=== PATIENT | male | born 1950 | race Caucasian/White ===

== ENCOUNTER → 2017-11-05 08:24 | Outpatient (CLI) | payer OTHER, MEDICAID, SELFPAY | LOC: LIFELINE 08:29 → LAB 11-19 09:25 | PROVIDERS: Family Provider Family Medicine; PCP Family Medicine; Visit Provider Family Medicine | DX: Z53.9 Procedure and treatment not carried out, unspecified reason (principal) ==

== ENCOUNTER → 2017-12-20 12:07 | Outpatient (CLI) | payer OTHER, MEDICAID, SELFPAY ==
--- NOTE | 2017-12-20 12:09 | DI.RAD.S_ITS ---
PROCEDURE: XR LUMBAR SPINE 2-3V INDICATIONS: 67-year-old male with low back pain. TECHNIQUE: 3 views of the lumbar spine were acquired. COMPARISON: None. FINDINGS: Bones: 5 [id number] vertebrae are present. There is normal bony alignment. There is multilevel lumbar spine disc degeneration, with L5-S1 disc narrowing. No vertebral body compression fractures. No suspicious bony lesions. Soft tissues: Overlying bowel gas pattern is normal. No suspicious soft tissue calcifications. There is widespread aortoiliac atherosclerosis, without aneurysm. IMPRESSION: Multilevel lumbar spine disc degeneration, with normal overall bony alignment. Dictated by: Quinn Stein M.D. on 12/20/2017 at 13:03 Approved by: Quinn Stein M.D. on 12/20/2017 at 13:05
== END ==
PROVIDERS: Family Provider Family Medicine; PCP Family Medicine; Visit Provider Physician Assistant
DX: M47.816 Spondylosis without myelopathy or radiculopathy, lumbar region (principal); M54.5 Low back pain
CPT/HCPCS: 72100

== ENCOUNTER → 2017-12-24 13:49 | Outpatient (CLI) | payer OTHER, MEDICAID, SELFPAY ==
--- NOTE | 2017-12-24 | DI.ECHO.S_ITS ---
[place] [facility]---------+ [facility] +---------+ : : [address] : [address] : : : : [id number] : : : : Phone: [phone]+ Echocardiogram Report + + :Name: MECCA MOONEY Study Date: 12/24/2017 Height: 71 in : :[facility] Weight: 255 lb: : Gender: Male BSA: 2.3 m2 : :: 1950 Age: 67 yrs BP: 90/52 mmHg: :Reason For Study: Cardiomyopathy : :Ordering Physician: Eleno Hanna : :Ana Performed By: Lory Gutierrez : :Referring: Rebecca Bae : + + Interpretation Summary 1) Mild concentric left ventricular hypertrophy with mildly to moderately reduced systolic function (EF 40-45%). 2) The entire apex, mid to distal septum, and the distal inferior wall are akinetic. 3) Grossly normal right ventricular size and function. 4) No significant valvular abnormalities. 5) Compared to the Echo done 06/29/2017, no significant change. Procedure: A two-dimensional transthoracic echocardiogram with color flow and Doppler was performed. The study quality was technically difficult. Comparison is made with the echocardiogram of 06-29-17. 1.5 ml of Definity contrast was used to improve image quality. The patient was in atrial fibrillation with heart rates between 68-90 bpm during the exam. Left Ventricle: The left ventricle is normal in size. There is mild concentric left ventricular hypertrophy. The ejection fraction is estimated to be 40-45%. Left ventricular systolic function is mild to moderately reduced. The entire apex, mid to distal septum, and the distal inferior wall are akinetic. Diastolic function could not be accurately assessed due to atrial fibrillation. Right Ventricle: The right ventricle grossly appears normal in size with probable normal systolic function. Atria: Borderline left atrial enlargement. Right atrial size is normal. The interatrial septum is intact with no evidence for an atrial septal defect. Mitral Valve: The mitral valve is grossly normal. There is no mitral regurgitation noted. Aortic Valve: The aortic valve opens well. There is no aortic valve stenosis. No aortic regurgitation is present. Tricuspid Valve: The tricuspid valve leaflets are thin and pliable. There is trace tricuspid regurgitation. The right ventricular systolic pressure is estimated at 32 mmHg assuming a right atrial pressure of 3 mm Hg. Pulmonic Valve: The pulmonic valve is not well visualized. Great Vessels: The aortic root is normal size. The ascending aorta is at the upper limits of normal in size. The IVC is of normal diameter and collapses greater than 50% with a sniff. This suggests a low right atrial pressure of 3 mm Hg. Pericardium/ Pleura There is no pericardial effusion. There is no pleural effusion. MMode/2D Measurements & Calculations LVIDd: 4.7 cm Ao root diam: 3.5 cm LVIDs: 3.2 cm Aortic Jxn: 3.4 cm FS: 31.9 % asc Aorta Diam: 3.7 cm IVSd: 1.2 cm Ao Arch Diam (Prox Trans): 3.2 cm LVPWd: 1.1 cm LV bond. diameter/BSA (cm/m^2): 2.0 LV sys. diameter/BSA (cm/m^2): 1.4 LA dimension: 4.9 cm RA long axis: 4.9 cm LA A2 area: 22.9 cm2 RA area: 19.1 cm2 LA A4 area: 20.2 cm2 RA vol: 63.8 ml LA length (vol): 5.5 cm RA : 27.3 ml/m2 LA vol: 70.9 ml IVC diam: 1.3 cm LA vol index: 30.3 ml/m2 RVDd major: 5.4 cm RVD1 (basal): 3.7 cm RVD2 (mid): 2.9 cm Doppler Measurements & Calculations Ao V2 max: 185.8 cm/sec MV E max randy: 72.2 cm/sec Ao V2 mean: 119.0 cm/sec MV A max randy: 67.7 cm/sec Ao max P.8 mmHg MV E/A: 1.1 Ao mean P.7 mmHg MV dec time: 0.28 sec Ao V2 VTI: 39.6 cm MV P1/2t: 82.6 msec TR max randy: 268.2 cm/sec MV P1/2t max randy: 71.7 cm/sec TR max P.8 mmHg MVA(P1/2t): 2.7 cm2 PA V2 max: 104.3 cm/sec PA V2 mean: 61.5 cm/sec PA mean P.0 mmHg PA Accel Time: 0.11 sec Reading Physician:04:20 PM
== END ==
PROVIDERS: Family Provider Family Medicine; PCP Family Medicine; Visit Provider Internal Medicine Cardiovascular Disease
DX: I42.9 Cardiomyopathy, unspecified (principal)
CPT/HCPCS: 93306; Q9957

== ENCOUNTER → 2018-01-20 08:41 | Outpatient (CLI) | payer OTHER, MEDICAID, SELFPAY | PROVIDERS: PCP Family Medicine; Visit Provider Urology | DX: R97.20 Elevated prostate specific antigen [PSA] (principal) | CPT/HCPCS: 36415; 84153 ==

== ENCOUNTER → 2018-02-08 08:08 | Outpatient (CLI) | payer OTHER, MEDICAID, SELFPAY ==
[2018-02-08 08:47] LABS: Add Manual Diff / Slide Review NO; Basophils Percent Auto 0.5 % (0-2); Eosinophils Percent Auto 4.1 % (2-4); Hematocrit 41.3 % (41-53); Lymphocytes Percent Auto 40.2 % (25-40); Mean Corpuscular Hemoglobin 29.1 PG (26-34); Mean Corpuscular Volume 85.5 fL (80-100); Neutrophils Absolute Auto 3900 /uL (3000-5900); Neutrophils Percent Auto 48.2 % (50-75); Platelet Count 204 X10^3/uL (150-400); Red Blood Cell Count 4.83 X10^6/uL (4.5-5.9); Red Cell Distribution Width 14.5 % (11.6-14.8)
[2018-02-08 08:57] LABS: Hemoglobin A1C% w Est Avg Glu 8.5 % (4.0-6.0)
[2018-02-08 09:25] LABS: Alanine Aminotransferase 22 IU/L (21-72); Albumin 4.1 g/dL (3.5-5.0); Albumin Globulin Ratio 1.4 (1.0-2.8); Alkaline Phosphatase 69 U/L (38-126); Aspartate Aminotransferase 20 IU/L (17-59); BUN Creatinine Ratio 21.8 (6-22); Bilirubin Total 0.9 mg/dL (0.2-1.3); Blood Urea Nitrogen 24 mg/dL (9-20); Calcium 9.1 mg/dL (8.4-10.2); Carbon Dioxide 30 mmol/L (22-32); Chloride 101 mmol/L (98-107); Cholesterol 152 mg/dL (140-199); Estimated Glomerular Filt Rate > 60.0 mL/min (>60); Glucose 197 mg/dL (80-110); HDL Cholesterol 41 mg/dL (40-60); HEMOLYSIS < 15 (0-50); LDL Cholesterol Calculated 81 mg/dL (<100); Potassium 4.5 mmol/L (3.4-5.1); Sodium 141 mmol/L (137-145); Total Protein 7.1 g/dL (6.3-8.2); Triglycerides 152 mg/dL (35-150)
[2018-02-08 10:45] LABS: Appearance Urine UA CLEAR; Bilirubin Urine UA NEGATIVE (NEGATIVE); Color Urine UA YELLOW; Glucose Urine UA NEGATIVE (Normal); Ketones Urine UA NEGATIVE (NEGATIVE); Leukocyte Esterase Urine UA NEGATIVE (NEGATIVE); Nitrite Urine UA Negative (Negative); Occult Blood Urine UA TRACE-INTACT (Negative); Protein Urine UA NEGATIVE (Negative); Urobilinogen Urine UA 0.2 E.U./dL (0.2); pH Urine UA 5.5 (4.5-8.0)
[2018-02-08 11:03] LABS: Thyroid Stimulating Hormone 3.54 uIU/mL (0.47-4.68)
== END ==
PROVIDERS: Family Provider Family Medicine; PCP Family Medicine; Visit Provider Family Medicine
DX: E11.9 Type 2 diabetes mellitus without complications (principal); Z51.81 Encounter for therapeutic drug level monitoring
CPT/HCPCS: 36415; 80053; 80061; 81003; 83036; 84443; 85025

== ENCOUNTER 2018-02-11 11:15 | Outpatient (RCR) | payer OTHER, MEDICAID, SELFPAY ==
--- NOTE | 2017-10-27 13:15 | PT.OTN ---
Current Diagnoses Cerebral infarction, unspecified (10/27/17) Physical Therapy Treatment Note PT-OP-A Visit Information Start: 10/27/17 10:17 Freq: Status: Active Protocol: Activity Type Activity Date Activity User E-Sign Co-Sign Detail Recorded Client Recorded Date Recorded By Document 10/27/17 10:25 AMB [email or web address] 10/27/17 10:28 AMB 10/27/17 10:25 Out-Patient Physical Therapy Visit Information [Visit Information] -Visit Note 7 of 15 visits authorized. G codes due visit 53. POC ends 11/02/17. Insurance authorization ends 12/13/17. -Visit Start Time 10:30 -Visit Stop Time 11:15 -Total Visit Minutes 45 -Visit Number 51 [Evaluation Information] -Evaluation Date 02/08/17 PT-OP-C Subjective Start: 10/27/17 10:17 Freq: Status: Active Protocol: Activity Type Activity Date Activity User E-Sign Co-Sign Detail Recorded Client Recorded Date Recorded By Document 10/27/17 13:00 AMB [email or web address] 10/27/17 13:15 AMB 10/27/17 13:00 OP-PT Subjective [Patient Comments] -Patient Comments The patient and his caregiver, Jennifer, attend PT. Pt said ouch 3 times when sitting down in his chair, and eventually pointed to his low back. He also said shit when asked to do more challenging exercises. PT-OP-Q Treatments Start: 10/27/17 10:17 Freq: Status: Active Protocol: Activity Type Activity Date Activity User E-Sign Co-Sign Detail Recorded Client Recorded Date Recorded By Document 10/27/17 13:00 AMB [email or web address] 10/27/17 13:15 AMB 10/27/17 13:00 Gym Equipment [Shuttle Balance] 1 -Details RED WBOS EC, EO HT -Reps/Duration 15 minutes Therapeutic Exercises [Sitting Exercises] 1 -Sitting Exercise Name Barry- flexion and scaption -Side bilateral -Reps/Minutes 5 minutes -Comments explained to Jennifer how to modify for home use [Standing Exercises] 2 -Standing Exercise Name Sidestepping at rail -Resistance yellow theraband -Reps/Minutes 5 minutes 1 -Standing Exercise Name Sit to stand -Reps/Minutes 2x10 Neuro Re-Education Treatment [Balance Activities] 1 -Details Dynamic Standing balance -Reps/Duration 15 minutes -Comments WBOS with shoulder abduction and trunk rotation, then stride stance with alternating shoulder flexion/ extension PT-OP-T Assessment and Plan Start: 10/27/17 10:17 Freq: Status: Active Protocol: Activity Type Activity Date Activity User E-Sign Co-Sign Detail Recorded Client Recorded Date Recorded By Document 10/27/17 13:00 AMB [email or web address] 10/27/17 13:15 AMB 10/27/17 13:00 Physical Therapy Assessment [Assessment Summary] -Assessment Patient was slightly less willing to progress difficulty of exercises at this visit. Physical Therapy Plan [Next Visit Focus/Plan] -Next Visit Plan Progress dynamic balance , dual tasking
--- NOTE | 2017-11-11 07:15 | PT.OTN ---
Current Diagnoses Cerebral infarction, unspecified (10/27/17) Cerebral infarction, unspecified (11/09/17) Physical Therapy Treatment Note PT-OP-A Visit Information Start: 10/27/17 10:17 Freq: Status: Active Protocol: Document 11/09/17 10:30 AMB (Rec: 11/11/17 07:12 AMB [email or web address]) Out-Patient Physical Therapy Visit Information Visit Information Visit Type Progress Note Visit Note 8 of 15 visits authorized. Insurance auth ends 12/13/17. Visit Start Time 10:30 Visit Stop Time 11:10 Total Visit Minutes 40 Visit Number 52 Evaluation Information Evaluation Date 02/08/17 PT-OP-C Subjective Start: 10/27/17 10:17 Freq: Status: Active Protocol: Document 11/09/17 10:30 AMB (Rec: 11/11/17 07:12 AMB [email or web address]) OP-PT Subjective Patient Comments Patient Comments The patient fell gettng out of the bathtub this morning. His son helped him get up. There is bruising on his right scapula, but nowhere else today that I can see. PT-OP-E Functional Tests Start: 11/11/17 06:53 Freq: Status: Active Protocol: Document 11/11/17 06:54 AMB (Rec: 11/11/17 06:54 AMB [email or web address]) Functional Tests Timed Up and Go (TUG) Score 13 Comments without AD or AFO TUG Impairment Rating 20 to <40% Impaired (Score 12- 13) PT-OP-M Strength Start: 11/11/17 06:54 Freq: Status: Active Protocol: Document 11/09/17 10:30 AMB (Rec: 11/11/17 06:58 AMB [email or web address]) Hip Strength Hip Manual Muscle Testing Right Flexion (L2) 3+ Fair+ Abduction 3 Fair Knee Strength Knee Manual Muscle Testing Right Flexion (S2) 4 Good Extension (L3) 4+ Good+ Ankle/Foot Strength Ankle and Foot Manual Muscle Testing Right Dorsiflexion (L4) 3+ Fair+ Plantarflexion (S1) 4- Good- PT-OP-Q Treatments Start: 10/27/17 10:17 Freq: Status: Active Protocol: Document 11/09/17 10:30 AMB (Rec: 11/11/17 07:12 AMB [email or web address]) Therapeutic Exercises Supine Exercises 1 Supine Exercise Name SLR Reps/Minutes 1 x 10 Sidelying Exercises 1 Sidelying Exercise Name hip abduction Side right Reps/Minutes 1 x 10 Standing Exercises 2 Standing Exercise Name Sidestepping at rail Resistance yellow theraband Reps/Minutes 5 minutes 1 Standing Exercise Name Sit to stand Reps/Minutes 2x10 Therapeutic Activity Therapeutic Activity 1 Name Floor transfer training Comments CGA with environmental support Gait Training Gait Activity 1 Description smooth surface Device Used none Level of Assistance intermittent Rafael Distance/Duration 200' Neuro Re-Education Treatment Balance Activities 2 Details static standing balance Comments modified tandem stance EO PT-OP-T Assessment and Plan Start: 10/27/17 10:17 Freq: Status: Active Protocol: Document 11/09/17 10:30 AMB (Rec: 11/11/17 06:53 AMB [email or web address]) Physical Therapy Assessment Rehab Potential Rehabilitation Potential Good Impairments Impairments Balance Functional Activities Gait Posture Sensation Strength Goals 4 Impairment Balance Short Term Goal (STG) The patient will maintain modified tandem stance with eyes open for 1 minute to show improved static balance.--MET 3 Impairment Transfers Short Term Goal (STG) The patient will perform a floor transfer safely with stand by assist. 2 Impairment ROM Short Term Goal (STG) The patient will have ankle dorsiflexion to neutral passivley.--MET STG Duration 4 weeks Chcf Goal (LTG) The patient will be independent with a HEP. LTG Duration 8 weeks 1 Impairment Gait Short Term Goal (STG) The patient will improve his TUG to 15 seconds to show reduced risk of falling--MET STG Duration 4 weeks Shell Trim Tool Setter Goal (LTG) The patient will ambulate 250 without LOB or scuffing his feet. LTG Duration 8 weeks Progress Towards Goals Progress Towards Goals Slow Progress - Other Progress Comments The patient has met 50% of his goals. He is close to meeting the others except for independence with a HEP. He has always been resistant to exercising at home, and while he will go on walks with his caregiver, getting him to perform a specific HEP at home has been difficult. Assessment Summary Assessment While the patient fell while getting out of the bathtub today, he has historically been able to perform a floor transfer with environmental support with contact guard assist. Today he was again able to perform a floor transfer that way. Perhaps he slipped in the tub, but he performs that transfer at home independently every day. There was bruising on the right side of his back, but his range of motion was without significant change. The remainder of PT will work on getting his new caregiver up to speed, and try to get the patient to have some follow through with a home exercise program. Physical Therapy Plan Frequency and Duration Frequency of Treatment 1x/Week Duration of Treatment 6 weeks Plan of Care Start Date 11/09/17 Plan of Care End Date 12/21/17 Therapeutic Interventions Therapeutic Interventions Balance Training Gait Training Home Exercise Program Manual Therapy Neuromuscular Re-education Self-Care/Home Management Therapeutic Activities Therapeutic Exercises
--- NOTE | 2017-11-16 16:12 | PT.OTN ---
Current Diagnoses Cerebral infarction, unspecified (10/27/17) Cerebral infarction, unspecified (11/16/17) Physical Therapy Treatment Note PT-OP-A Visit Information Start: 10/27/17 10:17 Freq: Status: Active Protocol: Document 11/16/17 10:30 AMB (Rec: 11/16/17 16:10 AMB [email or web address]) Out-Patient Physical Therapy Visit Information Visit Information Visit Type Treatment Note Visit Note 9 of 15 authorized, Insurance auth ends 12/13/17 Visit Start Time 10:30 Visit Stop Time 11:10 Total Visit Minutes 40 Visit Number 53 Evaluation Information Evaluation Date 02/08/17 PT-OP-C Subjective Start: 10/27/17 10:17 Freq: Status: Active Protocol: Document 11/16/17 10:30 AMB (Rec: 11/16/17 16:10 AMB [email or web address]) OP-PT Subjective Patient Comments Patient Comments The patient's new caregiver is unsure how much help Jackie was previously needing to get in and out of the bathtub but he was able to do so without help today. PT-OP-E Functional Tests Start: 11/11/17 06:53 Freq: Status: Active Protocol: Document 11/11/17 06:54 AMB (Rec: 11/11/17 06:54 AMB [email or web address]) Functional Tests Timed Up and Go (TUG) Score 13 Comments without AD or AFO TUG Impairment Rating 20 to <40% Impaired (Score 12- 13) PT-OP-M Strength Start: 11/11/17 06:54 Freq: Status: Active Protocol: Document 11/09/17 10:30 AMB (Rec: 11/11/17 06:58 AMB [email or web address]) Hip Strength Hip Manual Muscle Testing Right Flexion (L2) 3+ Fair+ Abduction 3 Fair Knee Strength Knee Manual Muscle Testing Right Flexion (S2) 4 Good Extension (L3) 4+ Good+ Ankle/Foot Strength Ankle and Foot Manual Muscle Testing Right Dorsiflexion (L4) 3+ Fair+ Plantarflexion (S1) 4- Good- PT-OP-Q Treatments Start: 10/27/17 10:17 Freq: Status: Active Protocol: Document 11/16/17 10:30 AMB (Rec: 11/16/17 16:10 AMB [email or web address]) Therapeutic Exercises Standing Exercises 3 Standing Exercise Name standing hip abd Reps/Minutes 2x10 1 Standing Exercise Name Sit to stand Reps/Minutes 1x10 Therapeutic Activity Therapeutic Activity 2 Name car transfer training Comments working to avoid pulling on steering wheel/ pulling on door to pull out of the car. Gait Training Gait Activity 2 Description curb step Comments first 8 step in // bars, then outside to real curb. first CGA with gait belt, then SBA. Neuro Re-Education Treatment Balance Activities 2 Details static standing balance Comments modified tandem stance EO PT-OP-T Assessment and Plan Start: 10/27/17 10:17 Freq: Status: Active Protocol: Document 11/16/17 10:30 AMB (Rec: 11/16/17 16:10 AMB [email or web address]) Physical Therapy Assessment Assessment Summary Assessment pt was able to safely go up and down curb step without UE support. He does want to pull on the car during a car transfer, but was able to perform one without UE support with verbal cues. Physical Therapy Plan Next Visit Focus/Plan Next Visit Plan Progress functional transfers. Please Sign and Return: I have reviewed this Plan of Care and certify that the skilled therapy services above are required to meet the patient???s needs. Physician Signature Date Printed Name and Credentials Clinical Instructor Signature Printed Name and Credentials
--- NOTE | 2017-11-23 16:03 | PT.OTN ---
Current Diagnoses Cerebral infarction, unspecified (10/27/17) Cerebral infarction, unspecified (11/23/17) Physical Therapy Treatment Note PT-OP-A Visit Information Start: 10/27/17 10:17 Freq: Status: Active Protocol: Document 11/23/17 10:30 AMB (Rec: 11/23/17 11:16 AMB [email or web address]) Out-Patient Physical Therapy Visit Information Visit Information Visit Type Treatment Note Visit Note 10 of 15 authorized, Insurance auth ends 12/13/17 Visit Start Time 10:30 Visit Stop Time 11:10 Total Visit Minutes 40 Visit Number 54 Evaluation Information Evaluation Date 02/08/17 PT-OP-C Subjective Start: 10/27/17 10:17 Freq: Status: Active Protocol: Document 11/23/17 10:30 AMB (Rec: 11/23/17 11:16 AMB [email or web address]) OP-PT Subjective Patient Comments Patient Comments Pt has a scrape on his right leg, it is currently bandaged so did not remove dressing. Pt and caregiver unsure of how he got it, but stated to caregiver it appeared about Wednesday night. PT-OP-E Functional Tests Start: 11/11/17 06:53 Freq: Status: Active Protocol: Document 11/11/17 06:54 AMB (Rec: 11/11/17 06:54 AMB [email or web address]) Functional Tests Timed Up and Go (TUG) Score 13 Comments without AD or AFO TUG Impairment Rating 20 to <40% Impaired (Score 12- 13) PT-OP-M Strength Start: 11/11/17 06:54 Freq: Status: Active Protocol: Document 11/09/17 10:30 AMB (Rec: 11/11/17 06:58 AMB [email or web address]) Hip Strength Hip Manual Muscle Testing Right Flexion (L2) 3+ Fair+ Abduction 3 Fair Knee Strength Knee Manual Muscle Testing Right Flexion (S2) 4 Good Extension (L3) 4+ Good+ Ankle/Foot Strength Ankle and Foot Manual Muscle Testing Right Dorsiflexion (L4) 3+ Fair+ Plantarflexion (S1) 4- Good- PT-OP-Q Treatments Start: 10/27/17 10:17 Freq: Status: Active Protocol: Document 11/23/17 10:30 AMB (Rec: 11/23/17 16:02 AMB [email or web address]) Therapeutic Exercises Standing Exercises 4 Standing Exercise Name calf stretch Reps/Minutes 30x4 1 Standing Exercise Name Sit to stand Reps/Minutes 1x10 Gait Training Gait Activity 4 Description 6 stairs Device Used no railing Level of Assistance CGA Comments Pt intermittently reached out to touch railing 3 Description Stairs Device Used 2 railings Level of Assistance CGA Comments Fwd/backward to reproduce idea of going up and down stairs to pool. 1 Description smooth surface Device Used none Distance/Duration 200' Comments pt caught his foot once but stabilized without physical assistance. Neuro Re-Education Treatment Balance Activities 3 Details SLS Comments attempted 1-3 seconds intermittently 2 Details static standing balance Comments modified tandem stance EO PT-OP-T Assessment and Plan Start: 10/27/17 10:17 Freq: Status: Active Protocol: Document 11/23/17 10:30 AMB (Rec: 11/23/17 16:02 AMB [email or web address]) Physical Therapy Assessment Assessment Summary Assessment Pt was able to back down stairs, but would likely have difficulty getting out of the above ground pool onto the stairs safely. Physical Therapy Plan Next Visit Focus/Plan Next Note Type Treatment Note Next Visit Plan Progress stairs Please Sign and Return: I have reviewed this Plan of Care and certify that the skilled therapy services above are required to meet the patient???s needs. Physician Signature Date Printed Name and Credentials Clinical Instructor Signature Printed Name and Credentials
--- NOTE | 2017-11-30 14:45 | PT.OTN ---
Current Diagnoses Cerebral infarction, unspecified (10/27/17) Cerebral infarction, unspecified (11/30/17) Physical Therapy Treatment Note PT-OP-A Visit Information Start: 10/27/17 10:17 Freq: Status: Active Protocol: Document 11/30/17 10:30 AMB (Rec: 11/30/17 14:44 AMB [email or web address]) Out-Patient Physical Therapy Visit Information Visit Information Visit Type Treatment Note Visit Note 11 of 15 authorized, Insurance auth ends 12/13/17 Visit Start Time 10:30 Visit Stop Time 11:10 Total Visit Minutes 40 Visit Number 55 Evaluation Information Evaluation Date 02/08/17 PT-OP-C Subjective Start: 10/27/17 10:17 Freq: Status: Active Protocol: Document 11/30/17 10:30 AMB (Rec: 11/30/17 14:44 AMB [email or web address]) OP-PT Subjective Patient Comments Patient Comments Pt's attends with the patient. She states that the ankle wound is healing. She is able to describe the steps into the pool well. PT-OP-E Functional Tests Start: 11/11/17 06:53 Freq: Status: Active Protocol: Document 11/11/17 06:54 AMB (Rec: 11/11/17 06:54 AMB [email or web address]) Functional Tests Timed Up and Go (TUG) Score 13 Comments without AD or AFO TUG Impairment Rating 20 to <40% Impaired (Score 12- 13) PT-OP-M Strength Start: 11/11/17 06:54 Freq: Status: Active Protocol: Document 11/09/17 10:30 AMB (Rec: 11/11/17 06:58 AMB [email or web address]) Hip Strength Hip Manual Muscle Testing Right Flexion (L2) 3+ Fair+ Abduction 3 Fair Knee Strength Knee Manual Muscle Testing Right Flexion (S2) 4 Good Extension (L3) 4+ Good+ Ankle/Foot Strength Ankle and Foot Manual Muscle Testing Right Dorsiflexion (L4) 3+ Fair+ Plantarflexion (S1) 4- Good- PT-OP-Q Treatments Start: 10/27/17 10:17 Freq: Status: Active Protocol: Document 11/30/17 10:30 AMB (Rec: 11/30/17 14:44 AMB [email or web address]) Gym Equipment Shuttle Balance 1 Details RED WBOS Reps/Duration 15 minutes Comments dynamic balance with balloon batting bilateral arms Therapeutic Exercises Supine Exercises 2 Supine Exercise Name hamstring/ achilles passive stretch Side right Reps/Minutes 30 x2 1 Supine Exercise Name SLR Reps/Minutes 1 x 10 Sidelying Exercises 1 Sidelying Exercise Name hip abduction Side right Reps/Minutes 1 x 10 Standing Exercises 1 Standing Exercise Name Sit to stand Reps/Minutes 1x10 Gait Training Gait Activity 4 Description 6 stairs Device Used no railing Level of Assistance SBA Comments with SPC 3 Description Stairs Device Used 2 railings Level of Assistance CGA Comments FWD then turning around on step as he will need to do to get into the pool. PT-OP-T Assessment and Plan Start: 10/27/17 10:17 Freq: Status: Active Protocol: Document 11/30/17 10:30 AMB (Rec: 11/30/17 14:44 AMB [email or web address]) Physical Therapy Assessment Assessment Summary Assessment Pt much safer with SPC on the stairs, and seemed willing to use it, but we will have to follow up on if he uses it on his backyard stairs that don't have a railing. Physical Therapy Plan Frequency and Duration Frequency of Treatment 1x/Week Duration of Treatment 6 weeks Plan of Care Start Date 11/09/17 Plan of Care End Date 12/21/17 Next Visit Focus/Plan Next Note Type Treatment Note Next Visit Plan Follow up on SPC usage with stairs. Please Sign and Return: I have reviewed this Plan of Care and certify that the skilled therapy services above are required to meet the patient?s needs. Physician Signature Date Printed Name and Credentials Clinical Instructor Signature Printed Name and Credentials
--- NOTE | 2018-01-07 09:45 | PT.OTN ---
Current Diagnoses Cerebral infarction, unspecified (10/27/17) Cerebral infarction, unspecified (01/07/18) Physical Therapy Treatment Note PT-OP-A Visit Information Start: 10/27/17 10:17 Freq: Status: Active Protocol: Document 01/07/18 09:45 AMB (Rec: 01/10/18 07:24 AMB [id number]) Out-Patient Physical Therapy Visit Information Visit Information Visit Type Treatment Note Visit Note New insurance auth Visit Start Time 09:45 Visit Stop Time 10:30 Total Visit Minutes 45 Visit Number 56 Evaluation Information Evaluation Date 02/08/17 PT-OP-C Subjective Start: 10/27/17 10:17 Freq: Status: Active Protocol: Document 01/07/18 09:45 AMB (Rec: 01/10/18 07:24 AMB [id number]) OP-PT Subjective Patient Comments Patient Comments Pt and his caregiver attend PT after low back pain exacerbation. When asked if his back is still hurting pt states I don't know PT-OP-E Functional Tests Start: 11/11/17 06:53 Freq: Status: Active Protocol: Document 11/11/17 06:54 AMB (Rec: 11/11/17 06:54 AMB [email or web address]) Functional Tests Timed Up and Go (TUG) Score 13 Comments without AD or AFO TUG Impairment Rating 20 to <40% Impaired (Score 12- 13) PT-OP-M Strength Start: 11/11/17 06:54 Freq: Status: Active Protocol: Document 11/09/17 10:30 AMB (Rec: 11/11/17 06:58 AMB [email or web address]) Hip Strength Hip Manual Muscle Testing Right Flexion (L2) 3+ Fair+ Abduction 3 Fair Knee Strength Knee Manual Muscle Testing Right Flexion (S2) 4 Good Extension (L3) 4+ Good+ Ankle/Foot Strength Ankle and Foot Manual Muscle Testing Right Dorsiflexion (L4) 3+ Fair+ Plantarflexion (S1) 4- Good- PT-OP-Q Treatments Start: 10/27/17 10:17 Freq: Status: Active Protocol: Document 01/07/18 09:45 AMB (Rec: 01/10/18 07:30 AMB [id number]) Therapeutic Exercises Supine Exercises 5 Supine Exercise Name bridges 4 Supine Exercise Name lower trunk rotation Reps/Minutes 30x4 3 Supine Exercise Name piriformis stretch Reps/Minutes 30x2 2 Supine Exercise Name hamstring/ achilles passive stretch Side right Reps/Minutes 30 x2 Prone Exercises 1 Prone Exercise Name jeremiah pose Reps/Minutes 30x2 Therapeutic Activity Therapeutic Activity 1 Name Floor transfer training Reps/Minutes 10 min Comments CGA with environmental support - from supine PT-OP-T Assessment and Plan Start: 10/27/17 10:17 Freq: Status: Active Protocol: Document 01/07/18 09:45 AMB (Rec: 01/11/18 09:43 AMB [email or web address]) Physical Therapy Assessment Goals 4 Impairment Balance Short Term Goal (STG) The patient will maintain modified tandem stance with eyes open for 1 minute to show improved static balance.--MET 3 Impairment Transfers Short Term Goal (STG) The patient will perform a floor transfer safely with stand by assist.- MET 2 Impairment ROM Short Term Goal (STG) The patient will have ankle dorsiflexion to neutral passivley.--MET STG Duration 4 weeks Sawdust Drier Goal (LTG) The patient will be independent with a HEP. LTG Duration 8 weeks 1 Impairment Gait Short Term Goal (STG) The patient will improve his TUG to 15 seconds to show reduced risk of falling--MET STG Duration 4 weeks Sawdust Drier Goal (LTG) The patient will ambulate 250 without LOB or scuffing his feet. LTG Duration 8 weeks Assessment Summary Assessment The patient has met his goals, except for his home exercise program and gait goals. He continues to be resistant to exercising at home, especially with the change in caregivers. He is willing to work in PT. He has not been seen in the last month due to back pain. It was difficult to assess his back pain today because when asked if his back hurts he states I don't know . He is seeing his PCP regarding his back pain soon. If he wants to work on his back pain, we could work on that with a new prescription, but considering his previous difficulty with a home exercise program, it may be difficult to make gains. Physical Therapy Plan Frequency and Duration Frequency of Treatment 1x/Week Duration of Treatment 3 weeks Plan of Care Start Date 01/07/18 Plan of Care End Date 01/28/18 Therapeutic Interventions Therapeutic Interventions Balance Training Gait Training Home Exercise Program Manual Therapy Neuromuscular Re-education Self-Care/Home Management Therapeutic Activities Therapeutic Exercises Next Visit Focus/Plan Next Visit Plan Possible d/c in near future
--- NOTE | 2018-01-11 09:46 | PT.OPPN ---
Current Diagnoses Cerebral infarction, unspecified (10/27/17) Cerebral infarction, unspecified (01/07/18) Physical Therapy Progress Note PT-OP-A Visit Information Start: 10/27/17 10:17 Freq: Status: Active Protocol: Document 01/07/18 09:45 AMB (Rec: 01/10/18 07:24 AMB [id number]) Out-Patient Physical Therapy Visit Information Visit Information Visit Type Treatment Note Visit Note New insurance auth Visit Start Time 09:45 Visit Stop Time 10:30 Total Visit Minutes 45 Visit Number 56 Evaluation Information Evaluation Date 02/08/17 PT-OP-C Subjective Start: 10/27/17 10:17 Freq: Status: Active Protocol: Document 01/07/18 09:45 AMB (Rec: 01/10/18 07:24 AMB [id number]) OP-PT Subjective Patient Comments Patient Comments Pt and his caregiver attend PT after low back pain exacerbation. When asked if his back is still hurting pt states I don't know PT-OP-E Functional Tests Start: 11/11/17 06:53 Freq: Status: Active Protocol: Document 11/11/17 06:54 AMB (Rec: 11/11/17 06:54 AMB [email or web address]) Functional Tests Timed Up and Go (TUG) Score 13 Comments without AD or AFO TUG Impairment Rating 20 to <40% Impaired (Score 12- 13) PT-OP-M Strength Start: 11/11/17 06:54 Freq: Status: Active Protocol: Document 11/09/17 10:30 AMB (Rec: 11/11/17 06:58 AMB [email or web address]) Hip Strength Hip Manual Muscle Testing Right Flexion (L2) 3+ Fair+ Abduction 3 Fair Knee Strength Knee Manual Muscle Testing Right Flexion (S2) 4 Good Extension (L3) 4+ Good+ Ankle/Foot Strength Ankle and Foot Manual Muscle Testing Right Dorsiflexion (L4) 3+ Fair+ Plantarflexion (S1) 4- Good- PT-OP-T Assessment and Plan Start: 10/27/17 10:17 Freq: Status: Active Protocol: Document 01/07/18 09:45 AMB (Rec: 01/11/18 09:43 AMB [email or web address]) Physical Therapy Assessment Goals 4 Impairment Balance Short Term Goal (STG) The patient will maintain modified tandem stance with eyes open for 1 minute to show improved static balance.--MET 3 Impairment Transfers Short Term Goal (STG) The patient will perform a floor transfer safely with stand by assist.- MET 2 Impairment ROM Short Term Goal (STG) The patient will have ankle dorsiflexion to neutral passivley.--MET STG Duration 4 weeks Brake Press Operator Goal (LTG) The patient will be independent with a HEP. LTG Duration 8 weeks 1 Impairment Gait Short Term Goal (STG) The patient will improve his TUG to 15 seconds to show reduced risk of falling--MET STG Duration 4 weeks Shelter Goal (LTG) The patient will ambulate 250 without LOB or scuffing his feet. LTG Duration 8 weeks Assessment Summary Assessment The patient has met his goals, except for his home exercise program and gait goals. He continues to be resistant to exercising at home, esepecially with the change in caregivers. He is willing to work in PT. He has not been seen in the last month due to back pain. It was difficult to assess his back pain today because when asked if his back hurts he states I don't know . He is seeing his PCP regarding his back pain soon. If he wants to work on his back pain, we could work on that with a new prescription, but considering his previous difficulty with a home exercise program, it may be difficult to make gains. Physical Therapy Plan Frequency and Duration Frequency of Treatment 1x/Week Duration of Treatment 3 weeks Plan of Care Start Date 01/07/18 Plan of Care End Date 01/28/18 Therapeutic Interventions Therapeutic Interventions Balance Training Gait Training Home Exercise Program Manual Therapy Neuromuscular Re-education Self-Care/Home Management Therapeutic Activities Therapeutic Exercises Next Visit Focus/Plan Next Visit Plan Possible d/c in near future
--- NOTE | 2018-01-11 10:37 | PT.OTN ---
Current Diagnoses Cerebral infarction, unspecified (10/27/17) Cerebral infarction, unspecified (01/07/18) Physical Therapy Treatment Note PT-OP-A Visit Information Start: 10/27/17 10:17 Freq: Status: Active Protocol: Document 01/07/18 09:45 AMB (Rec: 01/10/18 07:24 AMB [id number]) Out-Patient Physical Therapy Visit Information Visit Information Visit Type Treatment Note Visit Note New insurance auth Visit Start Time 09:45 Visit Stop Time 10:30 Total Visit Minutes 45 Visit Number 56 Evaluation Information Evaluation Date 02/08/17 PT-OP-C Subjective Start: 10/27/17 10:17 Freq: Status: Active Protocol: Document 01/07/18 09:45 AMB (Rec: 01/10/18 07:24 AMB [id number]) OP-PT Subjective Patient Comments Patient Comments Pt and his caregiver attend PT after low back pain exacerbation. When asked if his back is still hurting pt states I don't know PT-OP-E Functional Tests Start: 11/11/17 06:53 Freq: Status: Active Protocol: Document 11/11/17 06:54 AMB (Rec: 11/11/17 06:54 AMB [email or web address]) Functional Tests Timed Up and Go (TUG) Score 13 Comments without AD or AFO TUG Impairment Rating 20 to <40% Impaired (Score 12- 13) PT-OP-M Strength Start: 11/11/17 06:54 Freq: Status: Active Protocol: Document 11/09/17 10:30 AMB (Rec: 11/11/17 06:58 AMB [email or web address]) Hip Strength Hip Manual Muscle Testing Right Flexion (L2) 3+ Fair+ Abduction 3 Fair Knee Strength Knee Manual Muscle Testing Right Flexion (S2) 4 Good Extension (L3) 4+ Good+ Ankle/Foot Strength Ankle and Foot Manual Muscle Testing Right Dorsiflexion (L4) 3+ Fair+ Plantarflexion (S1) 4- Good- PT-OP-Q Treatments Start: 10/27/17 10:17 Freq: Status: Active Protocol: Document 01/07/18 09:45 AMB (Rec: 01/10/18 07:30 AMB [id number]) Therapeutic Exercises Supine Exercises 5 Supine Exercise Name bridges 4 Supine Exercise Name lower trunk rotation Reps/Minutes 30x4 3 Supine Exercise Name piriformis stretch Reps/Minutes 30x2 2 Supine Exercise Name hamstring/ achilles passive stretch Side right Reps/Minutes 30 x2 Prone Exercises 1 Prone Exercise Name jeremiah pose Reps/Minutes 30x2 Therapeutic Activity Therapeutic Activity 1 Name Floor transfer training Reps/Minutes 10 min Comments CGA with environmental support - from supine PT-OP-T Assessment and Plan Start: 10/27/17 10:17 Freq: Status: Active Protocol: Document 01/07/18 09:45 AMB (Rec: 01/11/18 09:43 AMB [email or web address]) Physical Therapy Assessment Goals 4 Impairment Balance Short Term Goal (STG) The patient will maintain modified tandem stance with eyes open for 1 minute to show improved static balance.--MET 3 Impairment Transfers Short Term Goal (STG) The patient will perform a floor transfer safely with stand by assist.- MET 2 Impairment ROM Short Term Goal (STG) The patient will have ankle dorsiflexion to neutral passivley.--MET STG Duration 4 weeks Mixer Operator Helper Hot Metal Goal (LTG) The patient will be independent with a HEP. LTG Duration 8 weeks 1 Impairment Gait Short Term Goal (STG) The patient will improve his TUG to 15 seconds to show reduced risk of falling--MET STG Duration 4 weeks Mixer Operator Helper Hot Metal Goal (LTG) The patient will ambulate 250 without LOB or scuffing his feet. LTG Duration 8 weeks Assessment Summary Assessment The patient has met his goals, except for his home exercise program and gait goals. He continues to be resistant to exercising at home, esepecially with the change in caregivers. He is willing to work in PT. He has not been seen in the last month due to back pain. It was difficult to assess his back pain today because when asked if his back hurts he states I don't know . He is seeing his PCP regarding his back pain soon. If he wants to work on his back pain, we could work on that with a new prescription, but considering his previous difficulty with a home exercise program, it may be difficult to make gains. Physical Therapy Plan Frequency and Duration Frequency of Treatment 1x/Week Duration of Treatment 3 weeks Plan of Care Start Date 01/07/18 Plan of Care End Date 01/28/18 Therapeutic Interventions Therapeutic Interventions Balance Training Gait Training Home Exercise Program Manual Therapy Neuromuscular Re-education Self-Care/Home Management Therapeutic Activities Therapeutic Exercises Next Visit Focus/Plan Next Visit Plan Possible d/c in near future
--- NOTE | 2018-01-18 11:25 | PT.OTN ---
Current Diagnoses Cerebral infarction, unspecified (10/27/17) Cerebral infarction, unspecified (01/18/18) Physical Therapy Treatment Note PT-OP-A Visit Information Start: 10/27/17 10:17 Freq: Status: Active Protocol: Document 01/18/18 10:30 AMB (Rec: 01/18/18 11:14 AMB [id number]) Out-Patient Physical Therapy Visit Information Visit Information Visit Type Treatment Note Visit Start Time 10:30 Visit Stop Time 11:15 Total Visit Minutes 45 Visit Number 57 Evaluation Information Evaluation Date 02/08/17 PT-OP-C Subjective Start: 10/27/17 10:17 Freq: Status: Active Protocol: Document 01/18/18 10:30 AMB (Rec: 01/18/18 11:14 AMB [id number]) OP-PT Subjective Patient Comments Patient Comments Pt attens with caregiver, they were able to do HEP one time in the last 2 weeks. PT-OP-E Functional Tests Start: 11/11/17 06:53 Freq: Status: Active Protocol: Document 11/11/17 06:54 AMB (Rec: 11/11/17 06:54 AMB [email or web address]) Functional Tests Timed Up and Go (TUG) Score 13 Comments without AD or AFO TUG Impairment Rating 20 to <40% Impaired (Score 12- 13) PT-OP-M Strength Start: 11/11/17 06:54 Freq: Status: Active Protocol: Document 11/09/17 10:30 AMB (Rec: 11/11/17 06:58 AMB [email or web address]) Hip Strength Hip Manual Muscle Testing Right Flexion (L2) 3+ Fair+ Abduction 3 Fair Knee Strength Knee Manual Muscle Testing Right Flexion (S2) 4 Good Extension (L3) 4+ Good+ Ankle/Foot Strength Ankle and Foot Manual Muscle Testing Right Dorsiflexion (L4) 3+ Fair+ Plantarflexion (S1) 4- Good- PT-OP-Q Treatments Start: 10/27/17 10:17 Freq: Status: Active Protocol: Document 01/18/18 10:30 AMB (Rec: 01/18/18 11:22 AMB [id number]) Therapeutic Exercises Supine Exercises 5 Supine Exercise Name bridges 4 Supine Exercise Name lower trunk rotation Reps/Minutes 30x4 3 Supine Exercise Name piriformis stretch Reps/Minutes 30x2 2 Supine Exercise Name hamstring/ achilles passive stretch Side right Reps/Minutes 30 x2 Gait Training Gait Activity 4 Description 6 stairs Device Used no railing Level of Assistance SBA Comments with SPC PT-OP-T Assessment and Plan Start: 10/27/17 10:17 Freq: Status: Active Protocol: Document 01/18/18 10:30 AMB (Rec: 01/18/18 11:17 AMB [id number]) Physical Therapy Assessment Assessment Summary Assessment Pt appears to be more like his normal self. Less complaint of back pain. Physical Therapy Plan Next Visit Focus/Plan Next Note Type Treatment Note Next Visit Plan One more visit needed to finalize HEP with new caregiver.
--- NOTE | 2018-02-11 12:00 | PT.OTN ---
Current Diagnoses Cerebral infarction, unspecified (10/27/17) Cerebral infarction, unspecified (02/11/18) Physical Therapy Treatment Note PT-OP-A Visit Information Start: 10/27/17 10:17 Freq: Status: Active Protocol: Document 02/11/18 11:15 AMB (Rec: 02/16/18 08:02 AMB [email or web address]) Out-Patient Physical Therapy Visit Information Visit Information Visit Type Discharge Summary Visit Start Time 11:15 Visit Stop Time 12:00 Total Visit Minutes 45 Visit Number 58 Evaluation Information Evaluation Date 02/08/17 PT-OP-C Subjective Start: 10/27/17 10:17 Freq: Status: Active Protocol: Document 02/11/18 11:15 AMB (Rec: 02/16/18 08:02 AMB [email or web address]) OP-PT Subjective Patient Comments Patient Comments Pt attends with his . She reports he [facility] and fell when tripping over a log. His caregiver has not yet followed through with taking him walking at [employer] or the [facility]. She has not been able to get him to do his supine exercises again. His is concerned that 1-2x he has exited the car without looking for traffic and cars had to stop for him. PT-OP-E Functional Tests Start: 11/11/17 06:53 Freq: Status: Active Protocol: Document 11/11/17 06:54 AMB (Rec: 11/11/17 06:54 AMB [email or web address]) Functional Tests Timed Up and Go (TUG) Score 13 Comments without AD or AFO TUG Impairment Rating 20 to <40% Impaired (Score 12- 13) PT-OP-M Strength Start: 11/11/17 06:54 Freq: Status: Active Protocol: Document 11/09/17 10:30 AMB (Rec: 11/11/17 06:58 AMB [email or web address]) Hip Strength Hip Manual Muscle Testing Right Flexion (L2) 3+ Fair+ Abduction 3 Fair Knee Strength Knee Manual Muscle Testing Right Flexion (S2) 4 Good Extension (L3) 4+ Good+ Ankle/Foot Strength Ankle and Foot Manual Muscle Testing Right Dorsiflexion (L4) 3+ Fair+ Plantarflexion (S1) 4- Good- PT-OP-Q Treatments Start: 10/27/17 10:17 Freq: Status: Active Protocol: Document 02/11/18 11:15 AMB (Rec: 02/16/18 08:02 AMB [email or web address]) Gait Training Gait Activity 3 Description Stairs Device Used 1 railing Level of Assistance SBA Comments 2 flights of stairs. 1 Description smooth surface Device Used none Distance/Duration 1000' Comments Walking in parking lot, attending to traffic, cars, crosswalk Lymphedema Treatment Patient Education Other Discussed ongoing exercise program with patient and his . Safety concerns with community ambulation. PT-OP-T Assessment and Plan Start: 10/27/17 10:17 Freq: Status: Active Protocol: Document 02/11/18 11:15 AMB (Rec: 02/11/18 11:15 AMB [email or web address]) Physical Therapy Assessment Goals 4 Impairment Balance Short Term Goal (STG) The patient will maintain modified tandem stance with eyes open for 1 minute to show improved static balance.--MET STG Duration MET 3 Impairment Transfers Short Term Goal (STG) The patient will perform a floor transfer safely with stand by assist.- MET STG Duration MET 2 Impairment ROM Short Term Goal (STG) The patient will have ankle dorsiflexion to neutral passivley.--MET STG Duration MET [employer] Goal (LTG) The patient will be independent with a HEP.-- NOT MET LTG Duration 8 weeks 1 Impairment Gait Short Term Goal (STG) The patient will improve his TUG to 15 seconds to show reduced risk of falling--MET STG Duration MET Fdc Goal (LTG) The patient will ambulate 250 without LOB or scuffing his feet.- MET LTG Duration 8 weeks Assessment Summary Assessment Overall in the past year, Jackie has improved with the safety and consistency of his mobility (stairs, gait, floor transfers). He has had medical setbacks (UTI, sepsis, cellulitis) that have set him back with his PT, but overall he has showed improvement in his balance and community level gait. However, his insight into his condition and willingness to participate with his caregiver may limit his future progress. His was encouraged that if he has a change in function in the future, he would be welcome to return to PT with a new MD prescription. Physical Therapy Plan Discharge Physical Therapy Discharge Reasons Goals Met Discharge Comments The patient has met hte majority of his goals. His relationship with his and his caregiver make it difficult for them to encourage him in his HEP, so his carryover of his home exercise program will likely be difficult.
--- NOTE | 2018-02-16 09:00 | PT.OPDS ---
Current Diagnoses Cerebral infarction, unspecified (10/27/17) Cerebral infarction, unspecified (02/11/18) Provider Visit Care Team Role Provider Type Rebecca Bae DO Attending Provider Physician Family Provider Primary Care Provider Specialty: Family Practice Address: [address] [place] [address], [phone] Email: [email or web address] Visit Number Visit Number 58 Discharge Summary PT-OP-C Subjective Start: 10/27/17 10:17 Freq: Status: Active Protocol: Document 02/11/18 11:15 AMB (Rec: 02/16/18 08:02 AMB [email or web address]) OP-PT Subjective Patient Comments Patient Comments Pt attends with his . She reports he was walking with his caregiver at [employer] and fell when tripping over a log. His caregiver has not yet followed through with taking him walking at [employer] or the [facility]. She has not been able to get him to do his supine exercises again. His is concerned that 1-2x he has exited the car without looking for traffic and cars had to stop for him. PT-OP-E Functional Tests Start: 11/11/17 06:53 Freq: Status: Active Protocol: Document 11/11/17 06:54 AMB (Rec: 11/11/17 06:54 AMB [email or web address]) Functional Tests Timed Up and Go (TUG) Score 13 Comments without AD or AFO TUG Impairment Rating 20 to <40% Impaired (Score 12- 13) PT-OP-M Strength Start: 11/11/17 06:54 Freq: Status: Active Protocol: Document 11/09/17 10:30 AMB (Rec: 11/11/17 06:58 AMB [email or web address]) Hip Strength Hip Manual Muscle Testing Right Flexion (L2) 3+ Fair+ Abduction 3 Fair Knee Strength Knee Manual Muscle Testing Right Flexion (S2) 4 Good Extension (L3) 4+ Good+ Ankle/Foot Strength Ankle and Foot Manual Muscle Testing Right Dorsiflexion (L4) 3+ Fair+ Plantarflexion (S1) 4- Good- PT-OP-T Assessment and Plan Start: 10/27/17 10:17 Freq: Status: Active Protocol: Document 02/11/18 11:15 AMB (Rec: 02/11/18 11:15 AMB [email or web address]) Physical Therapy Assessment Goals 4 Impairment Balance Short Term Goal (STG) The patient will maintain modified tandem stance with eyes open for 1 minute to show improved static balance.--MET STG Duration MET 3 Impairment Transfers Short Term Goal (STG) The patient will perform a floor transfer safely with stand by assist.- MET STG Duration MET 2 Impairment ROM Short Term Goal (STG) The patient will have ankle dorsiflexion to neutral passivley.--MET STG Duration MET Custodial Goal (LTG) The patient will be independent with a HEP.-- NOT MET LTG Duration 8 weeks 1 Impairment Gait Short Term Goal (STG) The patient will improve his TUG to 15 seconds to show reduced risk of falling--MET STG Duration MET Upholstery Handler Goal (LTG) The patient will ambulate 250 without LOB or scuffing his feet.- MET LTG Duration 8 weeks Assessment Summary Assessment Overall in the past year, Jackie has improved with the safety and consistency of his mobility (stairs, gait, floor transfers). He has had medical setbacks (UTI, sepsis, cellulitis) that have set him back with his PT, but overall he has showed improvement in his balance and community level gait. However, his insight into his condition and willingness to participate with his caregiver may limit his future progress. His was encouraged that if he has a change in function in the future, he would be welcome to return to PT with a new MD prescription. Physical Therapy Plan Discharge Physical Therapy Discharge Reasons Goals Met Discharge Comments The patient has met the majority of his goals. His relationship with his and his caregiver make it difficult for them to encourage him in his HEP, so his carryover of his home exercise program will likely be difficult.
== END 2018-11-04 10:29 ==
LOC: PHYS 11:15
PROVIDERS: Family Provider Family Medicine; PCP Family Medicine; Visit Provider Family Medicine
DX: I63.9 Cerebral infarction, unspecified (principal)
CPT/HCPCS: 97110; 97112; 97116; 97530

== ENCOUNTER 2018-04-21 10:30 | Outpatient (RCR) | payer OTHER, MEDICAID, SELFPAY ==
--- NOTE | 2017-10-28 08:51 | OT.OPPN ---
On October 26, 2017 our therapy services consisting of Speech, Occupational, and Physical therapy transitioned from [employer] electronic documentation system to a new [employer] electronic system. All documentation prior to October 26 can be found under [employer] saved data. From October 26 forward, all medical record documentation will be in [employer] 6.1.
[2017-11-05 10:33] LABS: Hemoglobin A1C% w Est Avg Glu 8.6 % (4.0-6.0)
[2017-11-05 10:52] LABS: Alanine Aminotransferase 24 IU/L (21-72); Albumin 4.1 g/dL (3.5-5.0); Albumin Globulin Ratio 1.3 (1.0-2.8); Alkaline Phosphatase 82 U/L (38-126); Aspartate Aminotransferase 18 IU/L (17-59); Bilirubin Total 0.8 mg/dL (0.2-1.3); Cholesterol 143 mg/dL (140-199); Estimated Glomerular Filt Rate > 60.0 mL/min (>60); Globulin 3.1 g/dL (1.7-4.1); Glucose 208 mg/dL (80-110); HDL Cholesterol 44 mg/dL (40-60); HEMOLYSIS < 15 (0-50); LDL Cholesterol Calculated 81 mg/dL (<100); Potassium 4.3 mmol/L (3.4-5.1); Sodium 140 mmol/L (137-145); Total Protein 7.2 g/dL (6.3-8.2); Triglycerides 88 mg/dL (35-150)
--- NOTE | 2017-11-11 11:35 | OT.OP.TRT ---
Visit Care Team Role Provider Type Rebecca Bae DO Attending Provider Physician Family Provider Primary Care Provider Specialty: Family Practice Address: [address] [place] [address], [phone] Email: [email or web address] Occupational Therapy Treatment Note OT Outpatient Treatment Note - Adult Start: 10/28/17 09:40 Freq: Status: Active Protocol: Document 11/11/17 10:29 AMS (Rec: 11/11/17 10:33 AMS [email or web address]) OT Outpatient Adult Treatment Note Session Time Visit Start Time 09:32 Visit Stop Time 10:17 Total Visit Minutes 45 Visit Information Visit Number 12/05 Plan of Care Dates 10/14/17-01/05/18 Insurance Information 02/13/18=15 visits auth per paper chart; Medicare (combo) Setting Treatment Setting Outpatient Care Visit Type Note Type Treatment Note General Information General Information Pt is a 66 year-old male referred to outpatient OT 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 Precautions: Fall risk; Right Visual Field Cut - Subjective Identification Type Name Identification Reconciled With Medical Record Others Present Director Medical Writing Observations He fell on Wednesday onto his right side when he was getting out of the bathtub. He mowed the lawn yesterday all by myself. I was there the whole time. He was able to start it all by himself. He took about 5-6 breaks. I mowed a small portion for him per lay out former . Chief Complaint(s) Loss of Motion/Stiffness Restricts Patient Expectation/Goals Improve functional abilities of the right upper extremity Patient/Caregiver Compliance with Home Fair Exercise Program Comments needs caregiver support - Objective Objective Measurements Pt was accompanied by caregiver. Increasing complaints of pain/discomfort in right shoulder and elbow. Short Term Goals 1. Pt will be able to place B hands on back of head x 10 reps in sitting, with min trunk ext, without c/o pain/ discomfort, requiring max v.c. from therapist. 11/11/17 = 25% of goal met. 2. Pt will be able to shuffle standard size deck of cards x 2 reps with mod I. 10/26/17 = 25 % of goal met. 3. Pt will be able to complete 24-large piece puzzle x1 trial w/ mod verbal/visual cues from therpist. 10/26/17 = min phys A; max verbal/visual cues. Assisted Goals 1. Based on pt/caregiver verbal report, pt will be able to watch preferred television show with B hands on back of head x 2 minutes, as observed on 2 separate dates, per prior level of function. 11/11/17 = 25% of goal met. 2. Based on pt/caregiver verbal report, pt will be ble to safely complete gardening tasks x 10 minutes, utilizing appropriate pruning/trimming tools, as observed on 2 separate dates, requiring supervision. 11/11/17 = 50% of goal met x1 3. Pt will mod I w/ HEP w/ caregiver support. - Treatment 2 Descriptor Functional activities Dishes - plates/bowls Cleaning Mop Cups Visual Cues Max Cues Verbal Cues Max Cues 1 Descriptor Therapeutic Activities Eye-hand Coordination Bimanual Coordination Tolerance Fair Complexity No Change Exercises 3 Descriptor Cane Exercises Body Position Seated Verbal Cues Max Cues Tolerance Fair Modifications Required Yes Complexity No Change 2 Descriptor Home exercise program Functional activity focus/ Awareness Side Right Visual Cues Max Cues Verbal Cues Max Cues Modifications Required Yes 1 Descriptor Therapeutic Exercises AROM Body Position Standing/Sitting Physical Assistance Stand By Assistance Visual Cues None Verbal Cues None Tolerance Fair Modifications Required Yes Complexity No Change - Assessment Patient Response to Treatment Good Rehab Potential Good Impairments Identified ADLs Attention Balance Cognition Coordination/Dexterity Functional Activities Memory Motor Function Pain Weakness Posture Range of Motion Recreational Activities Meaningful Activities Spasticity Stiffness Safety Insight Visual Perception Motor Planning Eye-Hand Coordination Assessment of Improvement Modification of treatment session w/ focus on functional activities w/ use of right hand/reliance on R hand. Will determine if increased attention and carry-over occurs w/ this treatment approach. Able to manage ' cleaning mop' w/ R hand involved; able to manage stacking and unstacking of bowls and plates w/ right hand only multiple trials without dropping any while seated. Home Exercise Program Practiced functional activities in treatment session w/ use of R UE. Discussed w/ caregiver and pt carry-over of these skills into the home. Reviewed with Patient/Caregiver Goals Progress Being Made Home Exercise Program Patient/Caregiver Understanding Good - Plan Therapy Recommendations Continue with Current Program Advance per Rehabilitation Protocol Additional Therapy Recommendations Consult w/ CFA and PT Treatment Emphasis Next Session Functional activities; attention and active incorporation of the R UE Provider Signature Date
--- NOTE | 2017-11-18 12:05 | OT.OP.TRT ---
Visit Care Team Role Provider Type Rebecca Bae DO Attending Provider Physician Family Provider Primary Care Provider Specialty: Family Practice Address: [address] [place] [address], [id number] Email: [email or web address] Occupational Therapy Treatment Note OT Outpatient Treatment Note - Adult Start: 10/28/17 09:40 Freq: Status: Active Protocol: Document 11/18/17 11:55 AMS (Rec: 11/18/17 12:04 AMS [email or web address]) OT Outpatient Adult Treatment Note Session Time Visit Start Time 09:32 Visit Stop Time 10:18 Total Visit Minutes 46 Visit Information Visit Number 01/04 Plan of Care Dates 10/14/17-01/05/18 Insurance Information 02/13/18=15 visits auth per paper chart; Medicare (combo) Setting Treatment Setting Outpatient Care Visit Type Note Type Treatment Note General Information General Information Pt is a 66 year-old male referred to outpatient OT 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 per Jackie in re: arm stretches. Chief Complaint(s) Loss of Motion/Stiffness Restricts Patient Expectation/Goals Improve functional abilities of the right upper extremity Patient/Caregiver Compliance with Home Fair Exercise Program Comments needs caregiver support - Objective Objective Measurements Pt was accompanied by caregiver. (+) increased force used w/ manager fraud of writing utensil. (+) tendency to use whole arm w/ drawing. Max difficulty w/ replication of ' waves'; decreased fluidity w/ spirals. Decreased motor planning w/ fine motor tasks noted. Able to replicate square, [place], 'x', triangle. Short Term Goals 1. Pt will be able to place B hands on back of head x 10 reps in sitting, with min trunk ext, without c/o pain/ discomfort, requiring max v.c. from therapist. 11/18/17 = 50% of goal met. 2. Pt will be able to shuffle standard size deck of cards x 2 reps with mod I. 11/18/17 = 25% of goal met. 3. Pt will be able to complete 24-large piece puzzle x1 trial w/ mod verbal/visual cues from therpist. 10/26/17 = min phys A; max verbal/visual cues. Mainframe Software Developer Goals 1. Based on pt/caregiver verbal report, pt will be able to watch preferred television show with B hands on back of head x 2 minutes, as observed on 2 separate dates, per prior level of function. 11/18/17 = 25% of goal met. Not completing 2. Based on pt/caregiver verbal report, pt will be ble to safely complete gardening tasks x 10 minutes, utilizing appropriate pruning/trimming tools, as observed on 2 separate dates, requiring supervision. 11/18/17 = 50% of goal met x1 3. Pt will mod I w/ HEP w/ caregiver support. - Treatment 3 Descriptor Drawing/Tool use radial side of hand Visual Cues Max Cues Verbal Cues Max Cues Tolerance Fair Complexity Upgraded 2 Descriptor Functional activities Dishes - plates/bowls Cleaning Mop Visual Cues Max Cues Verbal Cues Max Cues Tolerance Fair Complexity Upgraded 1 Descriptor Eye-hand Coordination Tolerance Fair Complexity No Change Exercises 2 Descriptor Home exercise program Functional activity focus/ Awareness Hand placement w/ movie watching Coloring/drawing Side Right Visual Cues Max Cues Verbal Cues Max Cues Modifications Required Yes 1 Descriptor Therapeutic Exercises AROM Body Position Standing/Sitting Physical Assistance Stand By Assistance Visual Cues None Verbal Cues None Tolerance Fair Modifications Required Yes Complexity No Change - Assessment Patient Response to Treatment Good Rehab Potential Good Impairments Identified ADLs Attention Balance Cognition Coordination/Dexterity Functional Activities Memory Motor Function Pain Weakness Posture Range of Motion Recreational Activities Meaningful Activities Spasticity Stiffness Safety Insight Visual Perception Motor Planning Eye-Hand Coordination Comment Introduced new activities Assessment of Improvement (+) increased force used w/ manager fraud of writing utensil. (+) tendency to use whole arm w/ drawing. Decreased fine motor planning. Increased time required. Decreased carry-over of arm exercises; inconsistent performance of tone management and ROM exercises. (+) frustration re: performance of R UE w/ completion of tasks. Home Exercise Program Education re: importance of daily use of the R UE, including stretches. Recommended during watching ' movie'. Pt and caregiver verbalized understanding. Discussed drawing and/or coloring. Will follow-up. Reviewed with Patient/Caregiver Goals Progress Being Made Home Exercise Program Patient/Caregiver Understanding Good - Plan Therapy Recommendations Continue with Current Program Advance per Rehabilitation Protocol Additional Therapy Recommendations Consult w/ [employer]ER and PT Treatment Emphasis Next Session Functional activities; attention and active incorporation of the R UE Please Sign and Return: I have reviewed this Plan of Care and certify that the skilled therapy services above are required to meet the patient???s needs. Physician Signature Date Printed Name and Credentials Clinical Instructor Signature Printed Name and Credentials
--- NOTE | 2017-11-25 14:00 | OT.OP.TRT ---
Visit Care Team Role Provider Type Rebecca Bae DO Attending Provider Physician Family Provider Primary Care Provider Specialty: Family Practice Address: [address] [place] [address], [id number] Email: [email or web address] Occupational Therapy Treatment Note OT Outpatient Treatment Note - Adult Start: 10/28/17 09:40 Freq: Status: Active Protocol: Document 11/25/17 13:42 AMS (Rec: 11/25/17 13:55 AMS [email or web address]) OT Outpatient Adult Treatment Note Session Time Visit Start Time 09:30 Visit Stop Time 10:18 Total Visit Minutes 48 Visit Information Visit Number 02/04 Plan of Care Dates 10/14/17-01/05/18 Insurance Information 02/13/18=15 visits auth per paper chart; Medicare (combo) Setting Treatment Setting Outpatient Care Visit Type Note Type Treatment Note General Information General Information Pt is a 66 year-old male referred to outpatient OT 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 Chief Complaint(s) Loss of Motion/Stiffness Restricts Patient Expectation/Goals Improve functional abilities of the right upper extremity Patient/Caregiver Compliance with Home Fair Exercise Program Comments needs caregiver support - Objective Objective Measurements Please refer to progress towards meeting goals. Please refer to Bonnie I results below. Short Term Goals 1. Pt will be able to place B hands on back of head x 10 reps in sitting, with min trunk ext, without c/o pain/ discomfort, requiring max v.c. from therapist. 11/25/17 = 50% of goal met. 2. Pt will be able to shuffle standard size deck of cards x 2 reps with mod I. 11/18/17 = 25% of goal met. 3. Pt will be able to complete 24-large piece puzzle x1 trial w/ mod verbal/visual cues from therpist. 10/26/17 = min phys A; max verbal/visual cues. Care Home Goals 1. Based on pt/caregiver verbal report, pt will be able to watch preferred television show with B hands on back of head x 2 minutes, as observed on 2 separate dates, per prior level of function. 11/25/17 = 50% met. 2. Based on pt/caregiver verbal report, pt will be ble to safely complete gardening tasks x 10 minutes, utilizing appropriate pruning/trimming tools, as observed on 2 separate dates, requiring supervision. 11/18/17 = 50% of goal met x1 3. Pt will mod I w/ HEP w/ caregiver support. - Treatment 4 Descriptor Beery VMI 3 Descriptor Drawing/Tool Use Maze - required min verbal and visual cues (easy level) Tolerance Fair Complexity Upgraded 2 Descriptor Functional activities Dishes - plates/bowls Visual Cues Max Cues Verbal Cues Max Cues Tolerance Fair Complexity No Change - Assessment Patient Response to Treatment Good Rehab Potential Good Impairments Identified ADLs Attention Balance Cognition Coordination/Dexterity Functional Activities Memory Motor Function Pain Weakness Posture Range of Motion Recreational Activities Meaningful Activities Spasticity Stiffness Safety Insight Visual Perception Motor Planning Eye-Hand Coordination Comment Introduced new activities Assessment of Improvement Decreased ability to combine visual and motor abilities, as evidenced by performance on Beery VMI (Below Average when compared to same-aged peers). It should be noted however, pt demonstrated increased tolerance for fine motor imitation when compared to previous treatment date. Pt also participated in new maze activity. Home Exercise Program Recommended continued focus on stretching w/ hands placed on back of head while watching movie, as well as incorporating right hand upper extremity as much as possible on daily basis. Reviewed with Patient/Caregiver Goals Progress Being Made Home Exercise Program Patient/Caregiver Understanding Good - Plan Therapy Recommendations Continue with Current Program Advance per Rehabilitation Protocol Additional Therapy Recommendations Consult w/ ROD STRAIGHTENER and PT Treatment Emphasis Next Session Functional activities; attention and active incorporation of the R UE Please Sign and Return: I have reviewed this Plan of Care and certify that the skilled therapy services above are required to meet the patient?s needs. Physician Signature Date Printed Name and Credentials Clinical Instructor Signature Printed Name and Credentials
--- NOTE | 2017-12-07 12:10 | OT.OP.TRT ---
Visit Care Team Role Provider Type Rebecca Bae DO Attending Provider Physician Family Provider Primary Care Provider Specialty: Family Practice Address: [address] [place] [address], [phone] Email: [email or web address] Occupational Therapy Treatment Note OT Outpatient Treatment Note - Adult Start: 10/28/17 09:40 Freq: Status: Active Protocol: Document 12/07/17 11:54 AMS (Rec: 12/07/17 12:08 AMS [email or web address]) OT Outpatient Adult Treatment Note Session Time Visit Start Time 09:34 Visit Stop Time 10:20 Total Visit Minutes 46 Visit Information Visit Number 03/07 Plan of Care Dates 10/14/17-01/05/18 Insurance Information 02/13/18=15 visits auth per paper chart; Medicare (combo) Setting Treatment Setting Outpatient Care Visit Type Note Type Treatment Note General Information General Information Pt is a 66 year-old male referred to outpatient OT 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 Precautions: Fall risk; Right Visual Field Cut - Subjective Identification Type Name Identification Reconciled With Medical Record Others Present Family Observations He was really into baking before the stroke. He baked banana bread with Jennifer yesterday. She said he did a great job with mashing the bananas and mixing the batter with his right hand per . Sometimes per Jackie in re : Chief Complaint(s) Loss of Motion/Stiffness Restricts Patient Expectation/Goals Improve functional abilities of the right upper extremity Patient/Caregiver Compliance with Home Fair Exercise Program Comments w/ caregiver support - Objective Objective Measurements Please see below for progress towards meeting established goals. Short Term Goals 1. Pt will be able to place B hands on back of head x 10 reps in sitting, with min trunk ext, without c/o pain/ discomfort, requiring max v.c. from therapist. 12/07/17 = 50% of goal met. 2. Pt will be able to shuffle standard size deck of cards x 2 reps with mod I. 11/18/17 = 25% of goal met. 3. Pt will be able to complete 2 separate mazes (easy level of difficulty), with pathways approximately 1/4-inch in width, w/ supervision. 12/07/17 = GOAL UPGRADED GOALS MET: * Pt was able to complete 2 separate mazes (easy level of difficulty), with pathways 1/2 -inch in width, w/ mod I. *MET 12/07/17 4. GOAL DISCHARGED. Decreased meaningfulness to patient. Pt will be able to complete 24- large piece puzzle x1 trial w/ mod verbal/visual cues from therpist. 10/26/17 = min phys A; max verbal/visual cues. Fdc Goals 1. Based on pt/caregiver verbal report, pt will be able to watch preferred television show with B hands on back of head x 2 minutes, as observed on 2 separate dates, per prior level of function. 12/07/17 = 75% met. 2. Based on pt/caregiver verbal report, pt will be able to safely complete gardening tasks x 10 minutes, utilizing appropriate pruning/trimming tools, as observed on 2 separate dates, requiring supervision. 11/18/17 = 50% of goal met x1 3. Pt will mod I w/ HEP w/ caregiver support. - Treatment 4 Descriptor Motor Planning PVC Pipe Tree Supervision 3 Descriptor Drawing/Tool Use Mazes (x 2 trials) Copying items w/ whiteboard ( shapes) Tolerance Good Complexity Upgraded Exercises 2 Descriptor Home exercise program Side Right Visual Cues Max Cues Verbal Cues Max Cues Modifications Required Yes Complexity Upgraded 1 Descriptor Therapeutic Exercises AROM Body Position Standing/Sitting Physical Assistance Stand By Assistance Visual Cues None Verbal Cues None Tolerance Fair Modifications Required Yes Complexity No Change - Assessment Patient Response to Treatment Good Rehab Potential Good Impairments Identified ADLs Attention Balance Cognition Coordination/Dexterity Functional Activities Memory Motor Function Pain Weakness Posture Range of Motion Recreational Activities Meaningful Activities Spasticity Stiffness Safety Insight Visual Perception Motor Planning Eye-Hand Coordination Comment Goal Met Assessment of Overall Progress Improving Assessment of Improvement Improving visual motor abilities noted w/ maze completion. This is evidenced by pt meeting short term goal in this area on this date. Goal was upgraded appropriately. 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 Home Exercise Program Recommended continued focus on stretching w/ hands placed on back of head while watching movie, as well as incorporating right hand upper extremity as much as possible on daily basis. Provided appropriate level of difficulty mazes for home completion. Discussed daily completion of a maze and placement of hands on back of head while watching movie in the home. Reviewed with Patient/Caregiver Goals Progress Being Made Home Exercise Program Patient/Caregiver Understanding Good - Plan Therapy Recommendations Continue with Current Program Advance per Rehabilitation Protocol Additional Therapy Recommendations Consult w/ SECOND COOK AND BAKER and PT Treatment Emphasis Next Session Functional activities; attention and active incorporation of the R UE Please Sign and Return: I have reviewed this Plan of Care and certify that the skilled therapy services above are required to meet the patient?s needs. Physician Signature Date Printed Name and Credentials Clinical Instructor Signature Printed Name and Credentials
--- NOTE | 2017-12-24 13:35 | OT.OP.REEVAL ---
Visit Care Team Role Provider Type Rebecca Bae DO Attending Provider Physician Family Provider Primary Care Provider Address: [address] [place] [address], [id number] Email: [email or web address] Outpatient OT Outpatient Treatment Note - Adult Start: 10/28/17 09:40 Freq: Status: Active Protocol: Document 12/24/17 13:16 AMS (Rec: 12/24/17 13:35 AMS [email or web address]) OT Outpatient Adult Treatment Note Session Time Visit Start Time 12:30 Visit Stop Time 13:15 Total Visit Minutes 45 Visit Information Visit Number 04/06 Plan of Care Dates 12/24/17-03/18/18 Insurance Information 15 visits auth per paper chart ; Medicare (combo) Setting Treatment Setting Outpatient Care Visit Type Note Type Re-Evaluation General Information General Information Pt is a 66 year-old male referred to outpatient OT 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 Precautions: Fall risk; Right Visual Field Cut - Subjective Identification Type Name Identification Reconciled With Medical Record Others Present Family Observations He is better than he was but he is still in a lot of pain per . He hasn't wanted to move his arms since he hurt his back. Is that how I do it? per Jackie. Chief Complaint(s) Loss of Motion/Stiffness Restricts Patient Expectation/Goals Improve functional abilities of the right upper extremity Patient/Caregiver Compliance with Home Fair Exercise Program Comments w/ caregiver support - Objective Objective Measurements accompanied patient to outpatient OT treatment session. (+) guarding noted; decreased active trunk rotation and repositioning of self frequently in chair w/ tabletop tasks. Decreased awareness of personal abilities relative to motor planning w/ use of object; pt able to twirl pencil in CW and CCW directions WFL x 10 reps in each direction; min difficulty w/ pencil flips; max difficulty w/ circles in thumb webspace; mod difficulty w/ hummingbirds - however, able to complete. Increased reliance pre-treatment on big movements to assist w/ tool manipulation; thus, increased focus on small movements to manipulate writing utensil to support written tasks. Beery VMI Date of Test Date of Test 11/25/17 Full Form Raw Score 22 Standard Score 84 Scaled Score 7 Percentile 14 Interpretation of Standard Score Below Average (80-89) Please see below for progress towards meeting established goals. Short Term Goals 1. Pt will be able to place B hands on back of head x 10 reps in sitting, with min trunk ext, without c/o pain/ discomfort, requiring max v.c. from therapist. 12/24/17 = 50% met. Decreased compliance due to recent back injury 2. Pt will be able to shuffle standard size deck of cards x 2 reps with mod I. 12/24/17 = 25% of goal met. 3. Pt will be able to complete 2 separate mazes (easy level of difficulty), with pathways approximately 1/4-inch in width, w/ supervision. 12/24/17 = 50% met. GOALS MET: * Pt was able to complete 2 separate mazes (easy level of difficulty), with pathways 1/2 -inch in width, w/ mod I. *MET 12/07/17 4. GOAL DISCHARGED. Decreased meaningfulness to patient. Pt will be able to complete 24- large piece puzzle x1 trial w/ mod verbal/visual cues from therpist. 10/26/17 = min phys A; max verbal/visual cues. Nursing Home Goals 1. Based on pt/caregiver verbal report, pt will be able to watch preferred television show with B hands on back of head x 2 minutes, as observed on 2 separate dates, per prior level of function. 12/24/17 = 75% met. Decreased compliance due to recent back injury 2. Based on pt/caregiver verbal report, pt will be able to safely complete gardening tasks x 10 minutes, utilizing appropriate pruning/trimming tools, as observed on 2 separate dates, requiring supervision. 12/24/17 = 50% met x1; Decreased compliance due to recent back injury 3. Pt will mod I w/ HEP w/ caregiver support. 12/24/17= 50 % met - Treatment 3 Descriptor Object manipulation Mazes (x 2 trials) Fine motor imitation Tool manipulation - twirls; flips; hummingbirds; circles in thumb webspace Tolerance Good Complexity Upgraded Exercises 2 Descriptor Home exercise program Modified given back pain/ discomfort Side Right Visual Cues Max Cues Verbal Cues Max Cues Modifications Required Yes Complexity No Change 1 Descriptor Therapeutic Exercises AROM - modified Body Position Standing/Sitting Physical Assistance Stand By Assistance Visual Cues None Verbal Cues None Tolerance Fair Modifications Required Yes Complexity No Change - Assessment Patient Response to Treatment Good Rehab Potential Good Impairments Identified ADLs Attention Balance Cognition Coordination/Dexterity Functional Activities Memory Motor Function Pain Weakness Posture Range of Motion Recreational Activities Meaningful Activities Spasticity Stiffness Safety Insight Visual Perception Motor Planning Eye-Hand Coordination Comment Goal Met Assessment of Overall Progress Improving Assessment of Improvement Jackie has made progress over the last certification period relative to fine motor planning and visual perceptual abilities; this is evidenced by meeting short term goal in this area. Jackie was also making progress in other areas ; however, increased back pain has decreased carry-over of HEP and active participation in daily tasks. (+) guarding noted relative to back movement; repositioning of self frequently in chair w/ tabletop tasks. Decreased awareness of personal abilities relative to motor planning w/ use of object. Increased reliance pre- treatment on big movements to assist w/ tool manipulation; thus, increased focus on small movements to manipulate writing utensil to support written tasks. Continued outpatient OT recommended to maximize patient's functional independence and motor planning abilities w/ use of preferred hand/upper extremity . Please see below for progress towards meeting established goals. Home Exercise Program Modified HEP given back pain/ discomfort. Provided additional mazes for home completion. Both patient and denied questions. Reviewed with Patient/Caregiver Goals Progress Being Made Home Exercise Program Patient/Caregiver Understanding Good - Plan Therapy Recommendations Continue with Current Program Advance per Rehabilitation Protocol Other Additional Therapy Recommendations Consult w/ ADULT MANAGER & PT Comment 12 weeks Frequency of Treatment Once a Week Therapeutic Contents Active Range of Motion Adaptive Equipment Education Client Education Cognitive Skills Development Functional Activities Home Exercise Program Manual Therapy Education Neurodevelopment Treatment Neuromuscular Re-Education Self-Care Stretching/Flexibility Activities Therapeutic Activities Therapeutic Exercises
--- NOTE | 2017-12-28 14:45 | OT.OP.TRT ---
Visit Care Team Role Provider Type Rebecca Bae DO Attending Provider Physician Family Provider Primary Care Provider Specialty: Family Practice Address: [address] [place] [address], [id number] Email: [email or web address] Occupational Therapy Treatment Note OT Outpatient Treatment Note - Adult Start: 10/28/17 09:40 Freq: Status: Active Protocol: Document 12/28/17 14:30 AMS (Rec: 12/28/17 14:44 AMS [email or web address]) OT Outpatient Adult Treatment Note Session Time Visit Start Time 13:35 Visit Stop Time 14:20 Total Visit Minutes 45 Visit Information Visit Number 07/07; 10/10 insurance auth Plan of Care Dates 12/24/17-03/18/18 Insurance Information 15 visits auth per paper chart ; Medicare (combo) Setting Treatment Setting Outpatient Care Visit Type Note Type Treatment Note General Information General Information Pt is a 66 year-old male referred to outpatient OT 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 Precautions: Fall risk; Right Visual Field Cut - Subjective Identification Type Name Identification Reconciled With Medical Record Others Present Core Winder Machine Operator Observations He tells me he can't per manager implementation in re: using his R hand/UE with using his steam vac or the dishes. Not too bad per Jackie in re: his performance. Chief Complaint(s) Loss of Motion/Stiffness Restricts Patient Expectation/Goals Improve functional abilities of the right upper extremity Patient/Caregiver Compliance with Home Fair Exercise Program Comments w/ caregiver support - Objective Objective Measurements Core Winder Machine Operator accompanied patient to outpatient OT treatment session. Decreased guarding noted of right upper extremity ; however, still hesitant w/ movements of UE outside of base of support. Continued decreased awareness of motor abilities relative to motor planning w/ use of object; pt able to twirl pencil in CW and CCW directions WFL x 10 reps in each direction; slight difficulty w/ pencil flips; max difficulty w/ circles in thumb webspace. Max visual/ verbal cues for digit isolation w/ other fingers extended w/ bad cloth checker flip; able to isolate digits 1-5 of R hand. Able to manage 2-3 coins in palm of R hand w/ translation task w/ coins of various sizes. Please see below for progress towards meeting established goals. Short Term Goals 1. Pt will be able to place B hands on back of head x 10 reps in sitting, with min trunk ext, without c/o pain/ discomfort, requiring max v.c. from therapist. 12/28/17 = 50% met. 2. Pt will be able to shuffle standard size deck of cards x 2 reps with mod I. 12/28/17 = 50 % of goal met. 3. Pt will be able to complete 2 separate mazes (easy level of difficulty), with pathways approximately 1/4-inch in width, w/ supervision. 12/28/17= 50% met (3/4-inch width) GOALS MET: * Pt was able to complete 2 separate mazes (easy level of difficulty), with pathways 1/2 -inch in width, w/ mod I. *MET 12/07/17 4. GOAL DISCHARGED. Decreased meaningfulness to patient. Pt will be able to complete 24- large piece puzzle x1 trial w/ mod verbal/visual cues from therpist. 10/26/17 = min phys A; max verbal/visual cues. Propulsion Engineer Goals 1. Based on pt/caregiver verbal report, pt will be able to watch preferred television show with B hands on back of head x 2 minutes, as observed on 2 separate dates, per prior level of function. 12/24/17 = 75% met. D 2. Based on pt/caregiver verbal report, pt will be able to safely complete gardening tasks x 10 minutes, utilizing appropriate pruning/trimming tools, as observed on 2 separate dates, requiring supervision. 12/24/17 = 50% met x1; Decreased compliance due to recent back injury 3. Pt will mod I w/ HEP w/ caregiver support. 12/24/17= 50 % met - Treatment 3 Descriptor Object manipulation Mazes (x 2 trials) Fine motor imitation Tool manipulation - twirls; flips; hummingbirds; circles in thumb webspace Stacking checkers [place] Supervisor slide Mulga manipulation Tolerance Good Complexity Upgraded Exercises 2 Descriptor Home exercise program Side Right Visual Cues Max Cues Verbal Cues Max Cues Modifications Required Yes Complexity No Change 1 Descriptor Therapeutic Exercises AROM Body Position Standing/Sitting Physical Assistance Stand By Assistance Visual Cues None Verbal Cues None Tolerance Fair Modifications Required Yes Complexity No Change - Assessment Patient Response to Treatment Good Rehab Potential Good Impairments Identified ADLs Attention Balance Cognition Coordination/Dexterity Functional Activities Memory Motor Function Pain Weakness Posture Range of Motion Recreational Activities Meaningful Activities Spasticity Stiffness Safety Insight Visual Perception Motor Planning Eye-Hand Coordination Assessment of Overall Progress Improving Assessment of Improvement Decreased attention to R UE in the home environment; increased reliance on left hand/UE. Improving fine motor planning observed w/ tool use observed on this date. Recommend increasing difficulty of mazes relative to path width, increasing difficulty of object manipulation, increasing difficulty of fine motor planning/imitation, and continuing to address attention to R UE w/ focus on carry-over to home and community environments/ meaningful activities. Home Exercise Program Provided additional mazes for home completion. HEP w/ focus on functional use of the right hand discussed. Additional motor planning tasks demonstrated for home completion. Both patient and manager implementation denied questions. Reviewed with Patient/Caregiver Goals Progress Being Made Home Exercise Program Patient/Caregiver Understanding Good - Plan Therapy Recommendations Continue with Current Program Advance per Rehabilitation Protocol Other Additional Therapy Recommendations Consult w/ MECHANICAL MAINTENANCE WORKER & PT
--- NOTE | 2018-01-13 15:35 | OT.OP.TRT ---
Visit Care Team Role Provider Type Rebecca Bae DO Attending Provider Physician Family Provider Primary Care Provider Specialty: Family Practice Address: [address] [address], [id number] Email: [email or web address] Occupational Therapy Treatment Note OT Outpatient Treatment Note - Adult Start: 10/28/17 09:40 Freq: Status: Active Protocol: Document 01/13/18 15:23 AMS (Rec: 01/13/18 15:35 AMS [email or web address]) OT Outpatient Adult Treatment Note Session Time Visit Start Time 02:35 Visit Stop Time 03:18 Total Visit Minutes 43 Visit Information Visit Number 08/07; 11/09 insurance auth Plan of Care Dates 12/24/17-03/18/18 Insurance Information 15 visits auth per paper chart ; Medicare (combo) Setting Treatment Setting Outpatient Care Visit Type Note Type Treatment Note General Information General Information Pt is a 66 year-old male referred to outpatient OT 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 Precautions: Fall risk; Right Visual Field Cut - Subjective Identification Type Name Identification Reconciled With Medical Record Others Present Director Of Global Talent Observations He hasn't been doing his stretches per asphalt coater. I can't get him to use his right hand. That's hard per Jackie. Chief Complaint(s) Loss of Motion/Stiffness Restricts Patient Expectation/Goals Improve functional abilities of the right upper extremity Patient/Caregiver Compliance with Home Fair Exercise Program Comments w/ caregiver support - Objective Objective Measurements Director Of Global Talent accompanied patient to outpatient OT treatment session. Decreased guarding noted of right upper extremity . Decreased awareness of motor abilities relative to motor planning w/ use of object positioned in the right hand. Improving ability to combine visual perceptual and motor abilities w/ increased time, as evidenced by ability to complete maze w/ decreasing pathway size and increasing complexity of pathway to maneuver. (+) frustration due to slight errors w/ coloring and folding tasks. Decreased attention to right UE/right side of space; increased reliance on L UE. Please see below for progress towards meeting established goals. Short Term Goals 1. Pt will be able to place B hands on back of head x 10 reps in sitting, with min trunk ext, without c/o pain/ discomfort, requiring max v.c. from therapist. 01/13/18 = 50% met. 2. Pt will be able to shuffle standard size deck of cards x 2 reps with mod I. 12/28/17 = 50 % of goal met. 3. Pt will be able to complete 2 separate mazes (easy level of difficulty), with pathways approximately 1/4-inch in width, w/ supervision. 01/13/18 = 50% met (x 1) GOALS MET: * Pt was able to complete 2 separate mazes (easy level of difficulty), with pathways 1/2 -inch in width, w/ mod I. *MET 12/07/17 GOALS DISCHARGED: Decreased meaningfulness to patient. GOAL DISCHARGED: Pt will be able to complete 24- large piece puzzle x1 trial w/ mod verbal/visual cues from therpist. 10/26/17 = min phys A; max verbal/visual cues. Snf Goals 1. Based on pt/caregiver verbal report, pt will be able to watch preferred television show with B hands on back of head x 2 minutes, as observed on 2 separate dates, per prior level of function. 01/13/18 = 75% met. 2. Based on pt/caregiver verbal report, pt will be able to safely complete gardening tasks x 10 minutes, utilizing appropriate pruning/trimming tools, as observed on 2 separate dates, requiring supervision. 12/24/17 = 50% met x1; Decreased compliance due to recent back injury 3. Pt will mod I w/ HEP w/ caregiver support. 01/13/18= decreased attn to R UE - Treatment 3 Descriptor Object manipulation Mazes (x 1 trial) Tool manipulation Coloring Folding Tolerance Good Complexity Upgraded Exercises 2 Descriptor Home exercise program Side Right Visual Cues Max Cues Verbal Cues Max Cues Modifications Required Yes Complexity Upgraded 1 Descriptor Therapeutic Exercises AROM Body Position Standing/Sitting Physical Assistance Stand By Assistance Visual Cues None Verbal Cues None Tolerance Fair Modifications Required Yes Complexity No Change - Assessment Patient Response to Treatment Good Rehab Potential Good Impairments Identified ADLs Attention Balance Cognition Coordination/Dexterity Functional Activities Memory Motor Function Pain Weakness Posture Range of Motion Recreational Activities Meaningful Activities Spasticity Stiffness Safety Insight Visual Perception Motor Planning Eye-Hand Coordination Assessment of Improvement Decreased guarding noted of right upper extremity. Decreased awareness of motor abilities relative to motor planning w/ use of object positioned in the right hand. Improving ability to combine visual perceptual and motor abilities w/ increased time, as evidenced by ability to complete maze w/ decreasing pathway size and increasing complexity of pathway to maneuver. (+) frustration due to slight errors w/ coloring and folding tasks. Decreased attention to right UE/right side of space; increased reliance on L UE. Recommend increasing difficulty of mazes relative to path width, increasing difficulty of object manipulation, and continuing to address attention to R UE w/ focus on carry-over. Home Exercise Program Provided additional mazes for home completion. HEP w/ focus on functional use of the right hand. Discussed folding activities as another option. Both patient and asphalt coater denied questions. Reviewed with Patient/Caregiver Goals Progress Being Made Home Exercise Program Patient/Caregiver Understanding Good - Plan Therapy Recommendations Continue with Current Program Advance per Rehabilitation Protocol Other Additional Therapy Recommendations Consult w/ CARD DECORATOR & PT
--- NOTE | 2018-01-31 08:04 | OT.OP.TRT ---
Visit Care Team Role Provider Type Rebecca Bae DO Attending Provider Physician Family Provider Primary Care Provider Specialty: Family Practice Address: [address] [place] [address], [id number] Email: [email or web address] Occupational Therapy Treatment Note OT Outpatient Treatment Note - Adult Start: 10/28/17 09:40 Freq: Status: Active Protocol: Document 01/28/18 03:30 AMS (Rec: 01/31/18 08:04 AMS [email or web address]) OT Outpatient Adult Treatment Note Session Time Visit Start Time 12:31 Visit Stop Time 13:18 Total Visit Minutes 47 Visit Information Visit Number 09/04; 12/10 insurance auth Plan of Care Dates 12/24/17-03/18/18 Insurance Information 15 visits auth per paper chart ; Medicare (combo) Setting Treatment Setting Outpatient Care Visit Type Note Type Treatment Note General Information General Information Pt is a 66 year-old male referred to outpatient OT 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 Precautions: Fall risk; Right Visual Field Cut - Subjective Identification Type Name Identification Reconciled With Medical Record Others Present Security Consultant Observations My dog per Jackie when asked by millinery blocker 'Who is Ila?' Chief Complaint(s) Loss of Motion/Stiffness Restricts Patient Expectation/Goals Improve functional abilities of the right upper extremity Patient/Caregiver Compliance with Home Fair Exercise Program Comments w/ caregiver support - Objective Objective Measurements Security Consultant accompanied patient to outpatient OT treatment session. Decreased awareness of motor abilities relative to motor planning w/ use of object positioned in the right hand. Improving ability to combine visual perceptual and motor abilities w/ increased time, as evidenced by ability to complete maze w/ decreasing pathway size and increasing complexity of pathway to maneuver. (+) frustration due to slight errors w/ fine motor tasks. Decreased attention to right UE/right side of space; increased reliance on L UE. Initiated basic word search 3- 4 letter words, vertical and horizontal orientation only. Able to locate 2/6 without assistance (last 2). Please see below for progress towards meeting established goals. Short Term Goals 1. Pt will be able to place B hands on back of head x 10 reps in sitting, with min trunk ext, without c/o pain/ discomfort, requiring max v.c. from therapist. 01/28/18 = 50% met. 2. Pt will be able to shuffle standard size deck of cards x 2 reps with mod I. 01/28/18 = 50 % of goal met. 3. Pt will be able to locate 5 out of 6 words (3 to 5 letters in length; vertical and horizontal orientation), within basic word search, x 2 separate trials, utilizing writing utensil in right hand, requiring supervision from therapist. 01/28/18= 25% met GOALS MET: * Pt completed 2 separate mazes (easy level of difficulty), with pathways 1/2 -inch in width, w/ mod I. *MET 12/07/17 * Pt completed 2 separate mazes (easy level of difficulty), with pathways approximately 1/4-inch in width, w/ S. *MET 01/28/18 GOALS DISCHARGED: Decreased meaningfulness to patient. GOAL DISCHARGED: Pt will be able to complete 24- large piece puzzle x1 trial w/ mod verbal/visual cues from therapist. 10/26/17 = min phys A ; max verbal/visual cues. Chcf Goals 1. Based on pt/caregiver verbal report, pt will be able to watch preferred television show with B hands on back of head x 2 minutes, as observed on 2 separate dates, per prior level of function. 01/28/18 = 75% met. 2. Based on pt/caregiver verbal report, pt will be able to safely complete gardening tasks x 10 minutes, utilizing appropriate pruning/trimming tools, as observed on 2 separate dates, requiring supervision. 01/28/18 = 50% met x1; Decreased compliance due to recent back injury 3. Pt will mod I w/ HEP w/ caregiver support. 01/28/18= decreased attn to R UE - Treatment 4 Descriptor Visual perceptual/Motor abilities Mazes Word search Visual scanning Complexity Upgraded 3 Descriptor Object manipulation Tool manipulation Tolerance Good Complexity Upgraded Exercises 2 Descriptor Home exercise program Side Right Visual Cues Max Cues Verbal Cues Max Cues Modifications Required Yes Complexity Upgraded 1 Descriptor Therapeutic Exercises AROM Body Position Standing/Sitting Physical Assistance Stand By Assistance Visual Cues None Verbal Cues None Tolerance Fair Modifications Required Yes Complexity No Change - Assessment Patient Response to Treatment Good Rehab Potential Good Impairments Identified ADLs Attention Balance Cognition Coordination/Dexterity Functional Activities Memory Motor Function Pain Weakness Posture Range of Motion Recreational Activities Meaningful Activities Spasticity Stiffness Safety Insight Visual Perception Motor Planning Eye-Hand Coordination Assessment of Overall Progress Improving Assessment of Improvement Decreased awareness of motor abilities relative to motor planning w/ use of object positioned in the right hand. Improving ability to combine visual perceptual and motor abilities w/ increased time, as evidenced by ability to complete maze w/ decreasing pathway size and increasing complexity of pathway to maneuver. This is also evidenced by meeting short term goal in this area on this date and ability to successfully locate 2 out of 6 words within word search in vertical and horizontal orientation without assist ( within new activity). Decreased attention to right UE/right side of space; increased reliance on L UE. Recommend increasing difficulty of mazes relative to path width, increasing difficulty of word searches as tolerated, and continuing to address attention to R UE w/ focus on carry-over. Home Exercise Program Provided additional mazes and word searches for home completion. HEP w/ focus on functional use of the right hand. Both patient and millinery blocker denied questions. Reviewed with Patient/Caregiver Goals Progress Being Made Home Exercise Program Patient/Caregiver Understanding Good - Plan Therapy Recommendations Continue with Current Program Advance per Rehabilitation Protocol Other Additional Therapy Recommendations Consult w/ HRIS DEVELOPER & PT Comment Schedule additional appts
--- NOTE | 2018-02-01 15:41 | OT.OP.TRT ---
Visit Care Team Role Provider Type Rebecca Bae DO Attending Provider Physician Family Provider Primary Care Provider Specialty: Family Practice Address: [address] [place] [address], [id number] Email: [email or web address] Occupational Therapy Treatment Note OT Outpatient Treatment Note - Adult Start: 10/28/17 09:40 Freq: Status: Active Protocol: Document 02/01/18 15:30 AMS (Rec: 02/01/18 15:40 AMS [email or web address]) OT Outpatient Adult Treatment Note Session Time Visit Start Time 12:31 Visit Stop Time 13:20 Total Visit Minutes 49 Visit Information Visit Number 10/05; 01/09 insurance auth Plan of Care Dates 12/24/17-03/18/18 Insurance Information 15 visits auth per paper chart ; Medicare (combo) Setting Treatment Setting Outpatient Care Visit Type Note Type Treatment Note General Information General Information Pt is a 66 year-old male referred to outpatient OT 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 Precautions: Fall risk; Right Visual Field Cut - Subjective Identification Type Name Identification Reconciled With Medical Record Others Present Aerosol Supervisor Observations He was outside pulling ariel and I think that is when he got something in his right eye per fine grade operator. Get going per Jackie to therapist and fine grade operator to encourage walking infront of him. Chief Complaint(s) Loss of Motion/Stiffness Restricts Patient Expectation/Goals Improve functional abilities of the right upper extremity Patient/Caregiver Compliance with Home Fair Exercise Program Comments w/ caregiver support - Objective Objective Measurements Aerosol Supervisor accompanied patient to outpatient OT treatment session. Decreased awareness of motor abilities relative to motor planning w/ use of object positioned in the right hand. Improving ability to combine visual perceptual and motor abilities w/ increased time, as evidenced by increasing tolerance for unfamiliar therapeutic activities (e.g., new Spot the Differences in color activity ; Jackie was able to identify 9/12 differences identified without verbal or visual cueing). (+) frustration due to slight errors w/ fine motor tasks. Decreased attention to right UE/right side of space; increased reliance on L UE. Initiated basic word search 3- 5 letter words, vertical and horizontal orientation only. Able to locate 2/6 without assistance (last 2)x 2 separate trials. Please see below for progress towards meeting established goals. Short Term Goals 1. Pt will be able to place B hands on back of head x 10 reps in sitting, with min trunk ext, without c/o pain/ discomfort, requiring max v.c. from therapist. 02/01/18 = 50% met. 2. Pt will be able to shuffle standard size deck of cards x 2 reps with mod I. 01/28/18 = 50 % of goal met. 3. Pt will be able to locate 5 out of 6 words (3 to 5 letters in length; vertical and horizontal orientation), within basic word search, x 2 separate trials, utilizing writing utensil in right hand, requiring supervision from therapist. 02/01/18= 25% met 4. Pt will be able to identify at least 10 differences between similar images, x 2 separate trials, w/ supervision from therapist. 02/01/18= 50% met GOALS MET: * Pt completed 2 separate mazes (easy level of difficulty), with pathways 1/2 -inch in width, w/ mod I. *MET 12/07/17 * Pt completed 2 separate mazes (easy level of difficulty), with pathways approximately 1/4-inch in width, w/ S. *MET 01/28/18 GOALS DISCHARGED: Decreased meaningfulness to patient. GOAL DISCHARGED: Pt will be able to complete 24- large piece puzzle x1 trial w/ mod verbal/visual cues from therapist. 10/26/17 = min phys A ; max verbal/visual cues. Lumber Sticker Goals 1. Based on pt/caregiver verbal report, pt will be able to watch preferred television show with B hands on back of head x 2 minutes, as observed on 2 separate dates, per prior level of function. 01/28/18 = 75% met. 2. Based on pt/caregiver verbal report, pt will be able to safely complete gardening tasks x 10 minutes, utilizing appropriate pruning/trimming tools, as observed on 2 separate dates, requiring supervision. 01/28/18 = 50% met x1; Decreased compliance due to recent back injury 3. Pt will mod I w/ HEP w/ caregiver support. 01/28/18= decreased attn to R UE - Treatment 4 Descriptor Visual perceptual/Motor abilities Word search x 2 Spot the Differences x 1 Complexity Upgraded 3 Descriptor Object manipulation Tool manipulation Tolerance Good Complexity Upgraded Exercises 2 Descriptor Home exercise program Side Right Visual Cues Max Cues Verbal Cues Max Cues Modifications Required Yes Complexity Upgraded 1 Descriptor Therapeutic Exercises AROM Body Position Standing/Sitting Physical Assistance Stand By Assistance Visual Cues None Verbal Cues None Tolerance Fair Modifications Required Yes Complexity No Change - Assessment Patient Response to Treatment Good Rehab Potential Good Impairments Identified ADLs Attention Balance Cognition Coordination/Dexterity Functional Activities Memory Motor Function Pain Weakness Posture Range of Motion Recreational Activities Meaningful Activities Spasticity Stiffness Safety Insight Visual Perception Motor Planning Eye-Hand Coordination Assessment of Overall Progress Improving Assessment of Improvement Decreased awareness of motor abilities relative to motor planning w/ use of object positioned in the right hand. Improving ability to combine visual perceptual and motor abilities w/ increased time. Increasing receptiveness to different types of visual perceptual tasks that have motor component. Decreased attention to right UE/right side of space; increased reliance on L UE. Recommend increasing difficulty of visual perceptual activities as tolerated, increasing difficulty of word searches as tolerated, and continuing to address attention to R UE w/ focus on carry-over. Home Exercise Program Provided spot the differences activities to fine grade operator w/ focus on functional use of writing utensil in the right hand/attention to right hand body of space. Both patient and fine grade operator denied questions . Reviewed with Patient/Caregiver Goals Progress Being Made Home Exercise Program Patient/Caregiver Understanding Good - Plan Therapy Recommendations Continue with Current Program Advance per Rehabilitation Protocol Other Additional Therapy Recommendations Consult w/ BIG DATA SOFTWARE ENGINEER & PT Occupational Therapy Assessment OT Outpatient Standardized Assessments Start: 11/25/17 13:57 Freq: Status: Active Protocol: Document 02/01/18 15:30 AMS (Rec: 02/01/18 15:40 AMS [email or web address]) Bonnie UMANZOR Date of Test Date of Test 11/25/17 Full Form Raw Score 22 Standard Score 84 Scaled Score 7 Percentile 14 Interpretation of Standard Score Below Average (80-89)
--- NOTE | 2018-03-03 07:55 | OT.OP.TRT ---
Visit Care Team Role Provider Type Rebecca Bae DO Attending Provider Physician Family Provider Primary Care Provider Specialty: Family Practice Address: [address] [place] [address], [id number] Email: [email or web address] Occupational Therapy Treatment Note OT Outpatient Treatment Note - Adult Start: 10/28/17 09:40 Freq: Status: Active Protocol: Document 03/02/18 11:30 AMS (Rec: 03/03/18 07:55 AMS [email or web address]) OT Outpatient Adult Treatment Note Session Time Visit Start Time 10:35 Visit Stop Time 11:22 Total Visit Minutes 47 Visit Information Visit Number 11/04; 02/09 insurance auth Plan of Care Dates 12/24/17-03/18/18 Insurance Information 15 visits auth per paper chart ; Medicare (combo) Setting Treatment Setting Outpatient Care Visit Type Note Type Treatment Note General Information General Information Pt is a 66 year-old male referred to outpatient OT 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 Precautions: Fall risk; Right Visual Field Cut - Subjective Identification Type Name Identification Reconciled With Medical Record Others Present Family Observations I have hired a new caregiver per . Not too bad per Jackie. Chief Complaint(s) Loss of Motion/Stiffness Restricts Patient Expectation/Goals Improve functional abilities of the right upper extremity Patient/Caregiver Compliance with Home Fair Exercise Program Comments w/ caregiver support - Objective Objective Measurements accompanied patient to outpatient OT treatment session. Improving ability to combine visual perceptual and motor abilities w/ increased time. This is evidenced by identifying / differences w/ Spot the Differences color activity without verbal or visual cueing. (+) verbalization of frustration due to slight errors w/ fine motor tasks. Decreased attention to right UE/right side of space; increased reliance on L UE. Able to locate 5/6 without assistance x 1 trial (words 4 to 5 letters in length); orientation and mod assistance for first word. Please see below for progress towards meeting established goals. Short Term Goals 1. Pt will be able to place B hands on back of head x 10 reps in sitting, with min trunk ext, without c/o pain/ discomfort, requiring max v.c. from therapist. 03/02/18 = 50% met. 2. Pt will be able to shuffle standard size deck of cards x 2 reps with mod I. 01/28/18 = 50 % of goal met. 3. Pt will be able to locate 5 out of 6 words (3 to 5 letters in length; vertical and horizontal orientation), within basic word search, x 2 separate trials, utilizing writing utensil in right hand, requiring supervision from therapist. 03/02/18= 50% x 1 trial 10/31 w/ S 4. Pt will be able to identify at least 10 differences between similar images, x 2 separate trials, w/ supervision from therapist. 03/03/18= x 1 trial 05/10 w/ S GOALS MET: * Pt completed 2 separate mazes (easy level of difficulty), with pathways 1/2 -inch in width, w/ mod I. *MET 12/07/17 * Pt completed 2 separate mazes (easy level of difficulty), with pathways approximately 1/4-inch in width, w/ S. *MET 01/28/18 GOALS DISCHARGED: Decreased meaningfulness to patient. GOAL DISCHARGED: Pt will be able to complete 24- large piece puzzle x1 trial w/ mod verbal/visual cues from therapist. 10/26/17 = min phys A ; max verbal/visual cues. Technical Services Specialist Goals 1. Based on pt/caregiver verbal report, pt will be able to watch preferred television show with B hands on back of head x 2 minutes, as observed on 2 separate dates, per prior level of function. 01/28/18 = 75% met. 2. Based on pt/caregiver verbal report, pt will be able to safely complete gardening tasks x 10 minutes, utilizing appropriate pruning/trimming tools, as observed on 2 separate dates, requiring supervision. 01/28/18 = 50% met x1; Decreased compliance due to recent back injury 3. Pt will mod I w/ HEP w/ caregiver support. 01/28/18= decreased attn to R UE - Treatment 4 Descriptor Visual perceptual/Motor abilities Word search x 1 Spot the Differences x 1 Maze x 1 Complexity Upgraded 3 Descriptor Object manipulation Tool manipulation Tolerance Good Complexity Upgraded Exercises 2 Descriptor Home exercise program Reviewed w/ Provided education/support re: word search completion; Spot the Differences; mazes and Lorenze denied questions Side Right Visual Cues Max Cues Verbal Cues Max Cues Modifications Required Yes Complexity Upgraded 1 Descriptor Therapeutic Exercises AROM Body Position Standing/Sitting Physical Assistance Stand By Assistance Visual Cues None Verbal Cues None Tolerance Fair Modifications Required Yes Complexity No Change - Assessment Patient Response to Treatment Good Rehab Potential Good Impairments Identified ADLs Attention Balance Cognition Coordination/Dexterity Functional Activities Memory Motor Function Pain Weakness Posture Range of Motion Recreational Activities Meaningful Activities Spasticity Stiffness Safety Insight Visual Perception Motor Planning Eye-Hand Coordination Assessment of Overall Progress Improving Assessment of Improvement Decreased awareness of motor abilities relative to motor planning w/ use of object positioned in the right hand. Improving ability to combine visual perceptual and motor abilities w/ increased time. Decreased attention to right UE/right side of space; increased reliance on L UE. Recommend continue to increase difficulty of visual perceptual activities as tolerated, increasing difficulty of word searches as tolerated, and continuing to address attention to R UE w/ focus on carry-over. Home Exercise Program Please refer to treatment section of note for specific details. Reviewed with Patient/Caregiver Goals Progress Being Made Home Exercise Program Patient/Caregiver Understanding Good - Plan Therapy Recommendations Continue with Current Program Advance per Rehabilitation Protocol Other Additional Therapy Recommendations Consult w/ PRODUCTION SUPPORT ENGINEER
--- NOTE | 2018-03-09 12:00 | OT.OP.TRT ---
Visit Care Team Role Provider Type Rebecca Bae DO Attending Provider Physician Family Provider Primary Care Provider Specialty: Family Practice Address: [address] [place] [address], [id number] Email: [email or web address] Occupational Therapy Treatment Note OT Outpatient Treatment Note - Adult Start: 10/28/17 09:40 Freq: Status: Active Protocol: Document 03/09/18 11:47 AMS (Rec: 03/09/18 12:00 AMS [email or web address]) OT Outpatient Adult Treatment Note Session Time Visit Start Time 10:31 Visit Stop Time 11:18 Total Visit Minutes 47 Visit Information Visit Number 12/05; 03/12 insurance auth Plan of Care Dates 12/24/17-03/18/18 Insurance Information 15 visits auth per paper chart ; Medicare (combo) Setting Treatment Setting Outpatient Care Visit Type Note Type Treatment Note General Information General Information Pt is a 66 year-old male referred to outpatient OT 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 Precautions: Fall risk; Right Visual Field Cut - Subjective Identification Type Name Identification Reconciled With Medical Record Others Present Family Observations We are still waiting on the state for the new caregiver per . I have 100s of those per Jackie in re: same and different worksheets (at home). Chief Complaint(s) Loss of Motion/Stiffness Restricts Patient Expectation/Goals Improve functional abilities of the right upper extremity Patient/Caregiver Compliance with Home Fair Exercise Program Comments w/ caregiver support - Objective Objective Measurements accompanied patient to outpatient OT treatment session. Improving ability to combine visual perceptual and motor abilities w/ increased time. (+) verbalization of frustration due to slight errors w/ fine motor tasks. Decreased attention to right UE/right side of space; increased reliance on L UE. Upgraded word search from 6 x 8 to 7 x 9 and from 6 words to 7 words; mod verbal and max visual cues required on this date; recommend reducing number of rows/columns depending upon success next week w/ activity. Education completed re: importance of ' just right challenge' to avoid frustration at home; in agreement. Will gather and provide appropriate level activities at time of next treatment session. Please see below for progress towards meeting established goals. Short Term Goals 1. Pt will be able to place B hands on back of head x 10 reps in sitting, with min trunk ext, without c/o pain/ discomfort, requiring max v.c. from therapist. 03/09/18 = 50% met. 2. Pt will be able to shuffle standard size deck of cards x 2 reps with mod I. 01/28/18 = 50 % of goal met. 3. Pt will be able to locate 5 out of 6 words (vertical and horizontal orientation), within basic word search (7 x 9 in size), x 2 separate trials, utilizing writing utensil in right hand, requiring supervision from therapist. 03/09/18= GOAL UPGRADED 4. Pt will be able to identify at least 10 differences between similar images, x 2 separate trials, w/ supervision from therapist. 03/03/18= x 1 trial 05/10 w/ S GOALS MET: * Pt completed 2 separate mazes (easy level of difficulty), with pathways 1/2 -inch in width, w/ mod I. *MET 12/07/17 * Pt completed 2 separate mazes (easy level of difficulty), with pathways approximately 1/4-inch in width, w/ S. *MET 01/28/18 * Pt completed 1 word search, locating 5/6 words (3-5 letters in length) w/ S. *MET 03/03/18 GOALS DISCHARGED: Decreased meaningfulness to patient. GOAL DISCHARGED: Pt will be able to complete 24- large piece puzzle x1 trial w/ mod verbal/visual cues from therapist. 10/26/17 = min phys A ; max verbal/visual cues. Top Hat Body Maker Goals 1. Based on pt/caregiver verbal report, pt will be able to watch preferred television show with B hands on back of head x 2 minutes, as observed on 2 separate dates, per prior level of function. 03/09/18 = 75% met. 2. Based on pt/caregiver verbal report, pt will be able to safely complete gardening tasks x 10 minutes, utilizing appropriate pruning/trimming tools, as observed on 2 separate dates, requiring supervision. 01/28/18 = 50% met x1; Decreased compliance due to recent back injury 3. Pt will mod I w/ HEP w/ caregiver support. 01/28/18= decreased attn to R UE - Treatment 4 Descriptor Visual perceptual/Motor abilities Word search x 1 Spot the Differences x 1 Complexity Upgraded 3 Descriptor Object manipulation Tool manipulation Tolerance Good Complexity No Change Exercises 2 Descriptor Home exercise program Reviewed w/ Education re: word search Seated work w/ positioning of arm Side Right Visual Cues Max Cues Verbal Cues Max Cues Modifications Required Yes Complexity Upgraded 1 Descriptor Therapeutic Exercises AROM Body Position Standing/Sitting Physical Assistance Stand By Assistance Visual Cues None Verbal Cues None Tolerance Fair Modifications Required Yes Complexity No Change - Assessment Patient Response to Treatment Good Rehab Potential Good Impairments Identified ADLs Attention Balance Cognition Coordination/Dexterity Functional Activities Memory Motor Function Pain Weakness Posture Range of Motion Recreational Activities Meaningful Activities Spasticity Stiffness Safety Insight Visual Perception Motor Planning Eye-Hand Coordination Assessment of Improvement Decreased awareness of motor abilities relative to motor planning w/ use of object positioned in the right hand. Decreased attention to right UE/right side of space; increased reliance on L UE. Upgraded word search from 6 x 8 to 7 x 9 and from 6 words to 7 words; mod verbal and max visual cues required on this date. Recommend reducing number of rows/columns depending upon success next week w/ activity. Recommend continue to increase difficulty of visual perceptual activities as tolerated and continuing to address attention to R UE w/ focus on carry-over. Home Exercise Program Please refer to treatment section of note for specific details. Reviewed with Patient/Caregiver Goals Progress Being Made Home Exercise Program Patient/Caregiver Understanding Good - Plan Therapy Recommendations Continue with Current Program Advance per Rehabilitation Protocol Other Additional Therapy Recommendations Consult w/ SAP CONSULTANT
--- NOTE | 2018-03-17 11:10 | OT.OP.REEVAL ---
Visit Care Team Role Provider Type Rebecca Bae DO Attending Provider Physician Family Provider Primary Care Provider Address: [address] [place] [address], [id number] Email: [email or web address] Outpatient OT Outpatient Treatment Note - Adult Start: 10/28/17 09:40 Freq: Status: Active Protocol: Document 03/16/18 03:30 AMS (Rec: 03/17/18 11:10 AMS [email or web address]) OT Outpatient Adult Treatment Note Session Time Visit Start Time 10:30 Visit Stop Time 11:15 Total Visit Minutes 45 Visit Information Visit Number 01/04; 04/11 insurance auth Plan of Care Dates 03/16/18-06/08/18 Insurance Information 15 visits auth per paper chart ; Medicare (combo) Setting Treatment Setting Outpatient Care Visit Type Note Type Re-Evaluation General Information General Information Pt is a 66 year-old male referred to outpatient OT 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 Precautions: Fall risk; Right Visual Field Cut - Subjective Identification Type Name Identification Reconciled With Medical Record Others Present Family Observations I have been getting him to put his hands behind his head every day to stretch per . Not too bad per Jackie looking at his right hand w/ completion of TT tasks. Chief Complaint(s) Loss of Motion/Stiffness Restricts Patient Expectation/Goals Improve functional abilities of the right upper extremity Patient/Caregiver Compliance with Home Fair Exercise Program Comments w/ caregiver support - Objective Objective Measurements accompanied patient to outpatient OT treatment session. Improving ability to combine visual perceptual and motor abilities w/ increased time; this is evidenced by ability to complete increasingly diff mazes (12 diff. changes in direction) without A for problem solving correct path (bumping into borders x 8 x 1 trial w/ self- correction of error appropriately). Continued verbalization of frustration w / errors w/ FM tasks. Intro to diagonals w/ word search; max verbal/visual cues to locate diagonals. Decreased attention to right UE/right side of space; increased reliance on L UE. Education completed re: importance of 'just right challenge' to avoid frustration at home; in agreement. Provided upgraded maze activity for home. Please see below for progress towards meeting established goals. Short Term Goals 1. Pt will be able to place B hands on back of head x 10 reps in sitting, with min trunk ext, without c/o pain/ discomfort, requiring max v.c. from therapist. 03/16/18 = 50% met. 2. Pt will be able to shuffle standard size deck of cards x 2 reps with mod I. 03/16/18 = 50% met; not a focus 3. Pt will be able to locate 5 out of 6 words (vertical and horizontal orientation), within basic word search (7 x 9 in size), x 2 separate trials, utilizing writing utensil in right hand, requiring supervision from therapist. 03/16/18= 25% met 4. Pt will be able to identify at least 10 differences between similar images, x 2 separate trials, w/ supervision from therapist. = 75% met; x 1 trial w/ S GOALS MET: * Pt completed 2 separate mazes (easy level of difficulty), with pathways 1/2 -inch in width, w/ mod I. *MET 12/07/17 * Pt completed 2 separate mazes (easy level of difficulty), with pathways approximately 1/4-inch in width, w/ S. *MET 01/28/18 * Pt completed 1 word search, locating 5/6 words (3-5 letters in length) w/ S. *MET 03/03/18 GOALS DISCHARGED: Decreased meaningfulness to patient. GOAL DISCHARGED: Pt will be able to complete 24- large piece puzzle x1 trial w/ mod verbal/visual cues from therapist. 10/26/17 = min phys A ; max verbal/visual cues. Reconciliation Manager Goals 1. Based on pt/caregiver verbal report, pt will be able to safely complete gardening tasks x 10 minutes, utilizing appropriate pruning/trimming tools, as observed on 2 separate dates, requiring supervision. 03/16/18= 50% met 2. Pt will mod I w/ HEP w/ caregiver support. 01/28/18= decreased attn to R UE GOALS MET Based on 's verbal report, pt has watched t.v. w/ B hands on back of head x 2 min, x 2 dates, w/ cues. *MET 03/16 - Treatment 4 Descriptor Visual perceptual/Motor abilities Word search x 1 Complexity Upgraded 3 Descriptor Object manipulation Tool manipulation Tolerance Good Complexity No Change Exercises 2 Descriptor Home exercise program Reviewed w/ Maze upgraded Side Right Visual Cues Max Cues Verbal Cues Max Cues Modifications Required Yes Complexity Upgraded 1 Descriptor Therapeutic Exercises AROM Body Position Standing/Sitting Physical Assistance Stand By Assistance Visual Cues None Verbal Cues None Tolerance Fair Modifications Required Yes Complexity No Change - Assessment Patient Response to Treatment Good Rehab Potential Good Impairments Identified ADLs Attention Balance Cognition Coordination/Dexterity Functional Activities Memory Motor Function Pain Weakness Posture Range of Motion Recreational Activities Meaningful Activities Spasticity Stiffness Safety Insight Visual Perception Motor Planning Eye-Hand Coordination Assessment of Overall Progress Improving Assessment of Improvement Jackie has demonstrated progress over the last certification period in his ability to combine visual perceptual and fine motor abilities; he has also demonstrated progress in his ability to visually scan information and match letter sequences (words) in horizontal and vertical planes (left --> right, top --> down ). This is evidenced by Jackie meeting short term goals in this area. Jackie is also demonstrating improving carry-over of stretching at home w/ placement of hands behind head. Jackie however, continues to present w/ decreased decreased awareness of R UE, decreased attention to R side of space, increased reliance on L UE/hand, impaired vision, impaired problem solving skills, and decreased carry-over of HEP without support. Thus, continued outpt OT recommended to increase functional abilities of the right hand and spontaneous incorporation of UE in daily life. Home Exercise Program Please refer to treatment section of note for specific details. Reviewed with Patient/Caregiver Goals Progress Being Made Home Exercise Program Patient/Caregiver Understanding Good - Plan Therapy Recommendations Continue with Current Program Advance per Rehabilitation Protocol Additional Therapy Recommendations 12 weeks; consult w/ RN L AND D Frequency of Treatment Once a Week Therapeutic Contents Active Range of Motion Adaptive Equipment Education Client Education Cognitive Skills Development Functional Activities Home Exercise Program Manual Therapy Education Neurodevelopment Treatment Neuromuscular Re-Education Self-Care Stretching/Flexibility Activities Therapeutic Activities Therapeutic Exercises Modalities Sensory Re-education Modalities As Needed As Prescribed Occupational Therapy Assessment OT Outpatient Standardized Assessments Start: 11/25/17 13:57 Freq: Status: Active Protocol: Document 03/16/18 03:30 AMS (Rec: 03/17/18 11:10 AMS [email or web address]) 9-Hole Peg Hand Test Hand Left Comments NT; (+) frustration verbalized by pt w/ completion of test w / Right. Will attempt w/ L hand at time of next treatment session. Right Date of Test 03/16/18 Therapist MITRA Jay/Rachid Interpretation Impaired Comments 68.0 sec R hand; 10+ SD above the mean when compared to same -aged peers Norms for males 60-69 years of age: R hand = 20.7 sec +/- 2.9 (15- 29 range) L hand = 22.9 sec +/- 3.5 (18- 30 range)
--- NOTE | 2018-03-28 11:42 | OT.OP.TRT ---
Visit Care Team Role Provider Type Rebecca Bae DO Attending Provider Physician Family Provider Primary Care Provider Specialty: Family Practice Address: [address] [place] [address], [id number] Email: [email or web address] Occupational Therapy Treatment Note OT Outpatient Treatment Note - Adult Start: 10/28/17 09:40 Freq: Status: Active Protocol: Document 03/28/18 11:19 AMS (Rec: 03/28/18 11:42 AMS [email or web address]) OT Outpatient Adult Treatment Note Session Time Visit Start Time 08:30 Visit Stop Time 09:15 Total Visit Minutes 45 Visit Information Visit Number 08/07; 05/12 insurance auth Plan of Care Dates 03/16/18-06/08/18 Insurance Information 15 visits auth per paper chart ; Medicare (combo) Setting Treatment Setting Outpatient Care Visit Type Note Type Treatment Note General Information General Information Pt is a 66 year-old male referred to outpatient OT 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 Precautions: Fall risk; Right Visual Field Cut - Subjective Identification Type Name Identification Reconciled With Medical Record Others Present Family Observations I have to find a new caregiver. The other caregiver didn't do the 8 hour class she was supposed to do per . Not good per Jackie in re: work completed in session. Chief Complaint(s) Loss of Motion/Stiffness Restricts Patient Expectation/Goals Improve functional abilities of the right upper extremity Patient/Caregiver Compliance with Home Fair Exercise Program Comments w/ caregiver support - Objective Objective Measurements accompanied patient to outpatient OT treatment session. Improving ability to combine visual perceptual and motor abilities w/ increased time; this is evidenced by ability to complete increasingly diff mazes without A for problem solving correct path. Pt continues to verbalize frustration w/ errors w/ FM tasks. Increased number of rows and columns vs focus on diagonals due to poor tolerance and decreased success w/ diagonals. Decreased attention to right UE/right side of space; increased reliance on L UE. Education completed re: importance of 'just right challenge' to avoid frustration at home; in agreement. Provided upgraded maze activity for home. Please see below for progress towards meeting established goals. Short Term Goals 1. Pt will be able to place B hands on back of head x 10 reps in sitting, with min trunk ext, without c/o pain/ discomfort, requiring max v.c. from therapist. 03/16/18 = 50% met. 2. Pt will be able to shuffle standard size deck of cards x 2 reps with mod I. 03/16/18 = 50% met; not a focus 3. Pt will be able to locate 5 out of 6 words (vertical and horizontal orientation), within basic word search (7 x 9 in size), x 2 separate trials, utilizing writing utensil in right hand, requiring supervision from therapist. 03/28/18= 50% met; x 1 w/ S 4. Pt will be able to identify at least 10 differences between similar images, x 2 separate trials, w/ supervision from therapist. = 75% met; x 1 trial w/ S GOALS MET: * Pt completed 2 separate mazes (easy level of difficulty), with pathways 1/2 -inch in width, w/ mod I. *MET 12/07/17 * Pt completed 2 separate mazes (easy level of difficulty), with pathways approximately 1/4-inch in width, w/ S. *MET 01/28/18 * Pt completed 1 word search, locating 5/6 words (3-5 letters in length) w/ S. *MET 03/03/18 GOALS DISCHARGED: Decreased meaningfulness to patient. GOAL DISCHARGED: Pt will be able to complete 24- large piece puzzle x1 trial w/ mod verbal/visual cues from therapist. 10/26/17 = min phys A ; max verbal/visual cues. Assisted Goals 1. Based on pt/caregiver verbal report, pt will be able to safely complete gardening tasks x 10 minutes, utilizing appropriate pruning/trimming tools, as observed on 2 separate dates, requiring supervision. 03/16/18= 50% met 2. Pt will mod I w/ HEP w/ caregiver support. 01/28/18= decreased attn to R UE GOALS MET Based on 's verbal report, pt has watched t.v. w/ B hands on back of head x 2 min, x 2 dates, w/ cues. *MET 03/16 - Treatment 4 Descriptor Visual perceptual/Motor abilities Word search x 1 Complexity Upgraded 3 Descriptor Object manipulation Tool manipulation Tolerance Good Complexity No Change Exercises 2 Descriptor Home exercise program Reviewed w/ Maze upgraded Side Right Visual Cues Max Cues Verbal Cues Max Cues Modifications Required Yes Complexity Upgraded 1 Descriptor Therapeutic Exercises AROM Body Position Standing/Sitting Physical Assistance Stand By Assistance Visual Cues None Verbal Cues None Tolerance Fair Modifications Required Yes Complexity No Change - Assessment Patient Response to Treatment Good Rehab Potential Good Impairments Identified ADLs Attention Balance Cognition Coordination/Dexterity Functional Activities Memory Motor Function Pain Weakness Posture Range of Motion Recreational Activities Meaningful Activities Spasticity Stiffness Safety Insight Visual Perception Motor Planning Eye-Hand Coordination Assessment of Overall Progress Improving Assessment of Improvement Improving ability to combine visual and motor abilities; this is evidenced by increasing success w/ more difficult mazes. Improving ability to visually scan larger amounts of information (relative to upper case letters). Decreased active participation w/ therapeutic based activities w/ 's assistance per therapist recommendations outside of TT recommendations/stretching while watching favorite television show; thus, pt benefits from caregiver support for increased compliance and carry-over of HEP. Home Exercise Program Please refer to treatment section of note for specific details. Reviewed with Patient/Caregiver Goals Progress Being Made Home Exercise Program Patient/Caregiver Understanding Good - Plan Therapy Recommendations Continue with Current Program Advance per Rehabilitation Protocol Additional Therapy Recommendations Consult w/ CREW SCHEDULER
--- NOTE | 2018-04-13 11:53 | OT.OP.TRT ---
Visit Care Team Role Provider Type Rebecca Bae DO Attending Provider Physician Family Provider Primary Care Provider Specialty: Family Practice Address: [address] [place] [address], [id number] Email: [email or web address] Occupational Therapy Treatment Note OT Outpatient Treatment Note - Adult Start: 10/28/17 09:40 Freq: Status: Active Protocol: Document 04/13/18 11:42 AMS (Rec: 04/13/18 11:53 AMS [email or web address]) OT Outpatient Adult Treatment Note Session Time Visit Start Time 08:30 Visit Stop Time 09:15 Total Visit Minutes 45 Visit Information Visit Number 09/04; 06/11 insurance auth Plan of Care Dates 03/16/18-06/08/18 Insurance Information 15 visits auth per paper chart ; Medicare (combo) Setting Treatment Setting Outpatient Care Visit Type Note Type Treatment Note General Information General Information Pt is a 66 year-old male referred to outpatient OT 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 Precautions: Fall risk; Right Visual Field Cut - Subjective Identification Type Name Identification Reconciled With Medical Record Others Present Picker Packer Observations I am the new engine house helper, Bailey. That was pretty good per Jackie. Chief Complaint(s) Loss of Motion/Stiffness Restricts Patient Expectation/Goals Improve functional abilities of the right upper extremity Patient/Caregiver Compliance with Home Fair Exercise Program Comments w/ caregiver support - Objective Objective Measurements New engine house helper accompanied patient to outpatient OT treatment session. Improving ability to combine visual perceptual and motor abilities w/ increased time; this is evidenced by ability to complete increasingly diff mazes without A for problem solving correct path. Pt continues to verbalize frustration w/ errors w/ FM tasks. Increased number of rows and columns; required min visual A w/ last 2 words (+) fatigue noted with errors. Decreased attention to right UE/right side of space; increased reliance on L UE. Please see below for progress towards meeting established goals. Short Term Goals 1. Pt will be able to place B hands on back of head x 10 reps in sitting, with min trunk ext, without c/o pain/ discomfort, requiring max v.c. from therapist. 04/13/18 = 50 % met. 2. Pt will be able to shuffle standard size deck of cards x 2 reps with mod I. 04/13/18 = 50% met; not a focus 3. Pt will be able to locate 9 out of 10 words (vertical and horizontal orientation), within basic word search (8 x 12 in size), x 2 separate trials, utilizing writing utensil in right hand, requiring supervision from therapist. 04/13/18= GOAL UPGRADED 4. Pt will be able to identify at least 10 differences between similar images, x 2 separate trials, w/ supervision from therapist. = 75% met; x 1 trial w/ S GOALS MET: * Pt completed 2 separate mazes (easy level of difficulty), with pathways 1/2 -inch in width, w/ mod I. *MET 12/07/17 * Pt completed 2 separate mazes (easy level of difficulty), with pathways approximately 1/4-inch in width, w/ S. *MET 01/28/18 * Pt completed 1 word search, locating 5/6 words (3-5 letters in length) w/ S. *MET 03/03/18 * Located 5/6 words (vertical and horizontal orientation), within basic word search (7 x 9 in size), x 2 trials, w/ S. *MET 04/13/18 GOALS DISCHARGED: Decreased meaningfulness to patient. GOAL DISCHARGED: Pt will be able to complete 24- large piece puzzle x1 trial w/ mod verbal/visual cues from therapist. 10/26/17 = min phys A ; max verbal/visual cues. Correction Goals 1. Based on pt/caregiver verbal report, pt will be able to safely complete gardening tasks x 10 minutes, utilizing appropriate pruning/trimming tools, as observed on 2 separate dates, requiring supervision. 03/16/18= 50% met 2. Pt will mod I w/ HEP w/ caregiver support. 01/28/18= decreased attn to R UE GOALS MET Based on 's verbal report, pt has watched t.v. w/ B hands on back of head x 2 min, x 2 dates, w/ cues. *MET 03/16 - Treatment 4 Descriptor Visual perceptual/Motor abilities Word search x 1 (8x12) Maze x 1 Complexity Upgraded 3 Descriptor Object manipulation Tool manipulation Tolerance Good Complexity No Change Exercises 2 Descriptor Home exercise program Reviewed w/ Picker Packer Maze upgraded Side Right Visual Cues Max Cues Verbal Cues Max Cues Modifications Required Yes Complexity No Change 1 Descriptor Therapeutic Exercises AROM Body Position Standing/Sitting Physical Assistance Stand By Assistance Visual Cues None Verbal Cues None Tolerance Fair Modifications Required Yes Complexity No Change - Assessment Patient Response to Treatment Good Rehab Potential Good Impairments Identified ADLs Attention Balance Cognition Coordination/Dexterity Functional Activities Memory Motor Function Pain Weakness Posture Range of Motion Recreational Activities Meaningful Activities Spasticity Stiffness Safety Insight Visual Perception Motor Planning Eye-Hand Coordination Assessment of Overall Progress Improving Assessment of Improvement Improving ability to combine visual and motor abilities; this is evidenced by meeting STG in this area. Improving ability to visually scan larger amounts of information (relative to upper case letters). Reviewed OT recommendations for HEP w/ new engine house helper. All questions were answered. Recommend upgrading difficulty as able w/ word search/mazes/visual differentiation between similar images. Home Exercise Program Please refer to treatment section of note for specific details. Reviewed with Patient/Caregiver Goals Progress Being Made Home Exercise Program Patient/Caregiver Understanding Good - Plan Therapy Recommendations Continue with Current Program Advance per Rehabilitation Protocol Additional Therapy Recommendations Consult w/ PAVING STONE INSTALLER
--- NOTE | 2018-04-21 12:02 | OT.OP.TRT ---
Visit Care Team Role Provider Type Rebecca Bae DO Attending Provider Physician Family Provider Primary Care Provider Specialty: Family Practice Address: [address] [place] [address], [id number] Email: [email or web address] Occupational Therapy Treatment Note OT Outpatient Treatment Note - Adult Start: 10/28/17 09:40 Freq: Status: Active Protocol: Document 04/21/18 11:52 AMS (Rec: 04/21/18 12:02 AMS [email or web address]) OT Outpatient Adult Treatment Note Session Time Visit Start Time 10:30 Visit Stop Time 11:17 Total Visit Minutes 47 Visit Information Visit Number 10/05; insurance auth Plan of Care Dates 03/16/18-06/08/18 Insurance Information 15 visits auth per paper chart ; Medicare (combo) Setting Treatment Setting Outpatient Care Visit Type Note Type Treatment Note General Information General Information Pt is a 66 year-old male referred to outpatient OT 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 Precautions: Fall risk; Right Visual Field Cut - Subjective Identification Type Name Identification Reconciled With Medical Record Others Present Surgical Services Director Observations I though that he had speech today. The eye doctor says he has cataracts per Bailey. Chief Complaint(s) Loss of Motion/Stiffness Restricts Patient Expectation/Goals Improve functional abilities of the right upper extremity Patient/Caregiver Compliance with Home Fair Exercise Program Comments w/ caregiver support - Objective Objective Measurements Surgical Services Director accompanied Jackie. Improving ability to combine visual perceptual and motor abilities w/ increased time; this is evidenced by ability to complete increasingly diff mazes without A for problem solving correct path. Pt continues to verbalize frustration w/ errors w/ FM tasks. Increased number of rows and columns; required min visual A w/ last 2 words (+) fatigue noted with errors. Decreased attention to right UE/right side of space; increased reliance on L UE. Please see below for progress towards meeting established goals. Short Term Goals 1. Pt will be able to place B hands on back of head x 10 reps in sitting, with min trunk ext, without c/o pain/ discomfort, requiring max v.c. from therapist. 04/21/18 = 75 % met. 2. Pt will be able to shuffle standard size deck of cards x 2 reps with mod I. 04/13/18 = 50% met; not a focus 3. Pt will be able to locate 9 out of 10 words (vertical and horizontal orientation), within basic word search (8 x 12 in size), x 2 separate trials, utilizing writing utensil in right hand, requiring supervision from therapist. 04/21/18= x 1 trial w/ S; 50% met 4. Pt will be able to identify at least 10 differences between similar images, x 2 separate trials, w/ supervision from therapist. = 75% met; x 1 trial w/ S GOALS MET: * Pt completed 2 separate mazes (easy level of difficulty), with pathways 1/2 -inch in width, w/ mod I. *MET 12/07/17 * Pt completed 2 separate mazes (easy level of difficulty), with pathways approximately 1/4-inch in width, w/ S. *MET 01/28/18 * Pt completed 1 word search, locating 5/6 words (3-5 letters in length) w/ S. *MET 03/03/18 * Located 5/6 words (vertical and horizontal orientation), within basic word search (7 x 9 in size), x 2 trials, w/ S. *MET 04/13/18 GOALS DISCHARGED: Decreased meaningfulness to patient. GOAL DISCHARGED: Pt will be able to complete 24- large piece puzzle x1 trial w/ mod verbal/visual cues from therapist. 10/26/17 = min phys A ; max verbal/visual cues. Control Supervisor Goals 1. Based on pt/caregiver verbal report, pt will be able to safely complete gardening tasks x 10 minutes, utilizing appropriate pruning/trimming tools, as observed on 2 separate dates, requiring supervision. 03/16/18= 50% met 2. Pt will mod I w/ HEP w/ caregiver support. 01/28/18= decreased attn to R UE GOALS MET Based on 's verbal report, pt has watched t.v. w/ B hands on back of head x 2 min, x 2 dates, w/ cues. *MET 03/16 - Treatment 4 Descriptor Visual perceptual/Motor abilities Word search x 1 (8x12) Maze x 1 Complexity Upgraded 3 Descriptor Object manipulation Tool manipulation Tolerance Good Complexity No Change Exercises 2 Descriptor HEP. Current HEP recommendations reviewed. Reviewed positioning of arm in standing and w/ gait; reviewed daily use of the R hand w/ object manipulation; reviewed movement of the arm to the R of the body. Side Right Visual Cues Max Cues Verbal Cues Max Cues Modifications Required Yes Complexity No Change 1 Descriptor Therapeutic Exercises AROM Body Position Standing/Sitting Physical Assistance Stand By Assistance Visual Cues None Verbal Cues None Tolerance Fair Modifications Required Yes Complexity No Change - Assessment Rehab Potential Good Impairments Identified ADLs Attention Balance Cognition Coordination/Dexterity Functional Activities Memory Motor Function Pain Weakness Posture Range of Motion Recreational Activities Meaningful Activities Spasticity Stiffness Safety Insight Visual Perception Motor Planning Eye-Hand Coordination Assessment of Overall Progress Improving Assessment of Improvement Jackie is demonstrating improving visual motor abilities; this is evidenced by increased independence w/ word search and maze completion of this date. Jakcie however, continues to require support from caretakers and family to carry -over recommendations into daily life outside of the treatment room. It is recommended that therapist continues to advance visual perceptual motor tasks as tolerated and re-inforce attention to R side of the body (arm) and active incorporation of the right hand/arm on daily basis w/ engagement in meaningful activities. Home Exercise Program Please refer to treatment section of note for specific details. Reviewed with Patient/Caregiver Goals Progress Being Made Home Exercise Program Patient/Caregiver Understanding Good - Plan Therapy Recommendations Continue with Current Program Advance per Rehabilitation Protocol Additional Therapy Recommendations Consult w/ MORTGAGE SPECIALIST
--- NOTE | 2018-06-27 07:36 | OT.OP.DC ---
Visit Care Team Role Provider Type Rebecca Bae DO Attending Provider Physician Family Provider Primary Care Provider Address: [address] [place] [address], [address] Email: 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 Precautions: Fall risk; Right Visual Field Cut - Subjective Observations Pt has not been seen by outpatient OT since 04/21/18. Thus, pt to be d/c from OT at this time. - Objective Objective Measurements Pt has not been seen by outpatient OT since 04/21/18. Thus, pt to be d/c from OT at this time. Short Term Goals ALL GOALS DISCHARGED OF 1. Pt will be able to place B hands on back of head x 10 reps in sitting, with min trunk ext, without c/o pain/ discomfort, requiring max v.c. from therapist. 04/21/18 = 75 % met. 2. Pt will be able to shuffle standard size deck of cards x 2 reps with mod I. 04/13/18 = 50% met; not a focus 3. Pt will be able to locate 9 out of 10 words (vertical and horizontal orientation), within basic word search (8 x 12 in size), x 2 separate trials, utilizing writing utensil in right hand, requiring supervision from therapist. 04/21/18= x 1 trial w/ S; 50% met 4. Pt will be able to identify at least 10 differences between similar images, x 2 separate trials, w/ supervision from therapist. = 75% met; x 1 trial w/ S GOALS MET: * Pt completed 2 separate mazes (easy level of difficulty), with pathways 1/2 -inch in width, w/ mod I. *MET 12/07/17 * Pt completed 2 separate mazes (easy level of difficulty), with pathways approximately 1/4-inch in width, w/ S. *MET 01/28/18 * Pt completed 1 word search, locating 5/6 words (3-5 letters in length) w/ S. *MET 03/03/18 * Located 5/6 words (vertical and horizontal orientation), within basic word search (7 x 9 in size), x 2 trials, w/ S. *MET 04/13/18 GOALS DISCHARGED: Decreased meaningfulness to patient. GOAL DISCHARGED: Pt will be able to complete 24- large piece puzzle x1 trial w/ mod verbal/visual cues from therapist. 10/26/17 = min phys A ; max verbal/visual cues. Grey Percher Goals ALL GOALS DISCHARGED OF 1. Based on pt/caregiver verbal report, pt will be able to safely complete gardening tasks x 10 minutes, utilizing appropriate pruning/trimming tools, as observed on 2 separate dates, requiring supervision. 03/16/18= 50% met 2. Pt will mod I w/ HEP w/ caregiver support. 01/28/18= decreased attn to R UE GOALS MET Based on 's verbal report, pt has watched t.v. w/ B hands on back of head x 2 min, x 2 dates, w/ cues. *MET 03/16 - - Assessment Patient Response to Treatment Good Rehab Potential Good Impairments Identified ADLs Attention Balance Cognition Coordination/Dexterity Functional Activities Memory Motor Function Pain Weakness Posture Range of Motion Recreational Activities Meaningful Activities Spasticity Stiffness Safety Insight Visual Perception Motor Planning Eye-Hand Coordination Assessment of Improvement Pt has not been seen by outpatient OT since 04/21/18. Thus, pt to be d/c from OT at this time. - Plan Therapy Recommendations Discharge from Occupational Therapy Additional Therapy Recommendations Re-evaluate as deemed appropriate by PCP
== END 2018-07-11 12:19 ==
LOC: OT 10:30
PROVIDERS: Family Provider Family Medicine; PCP Family Medicine; Visit Provider Family Medicine
DX: I63.9 Cerebral infarction, unspecified (principal); R27.8 Other lack of coordination; M62.81 Muscle weakness (generalized); M79.601 Pain in right arm
CPT/HCPCS: 36415; 80053; 80061; 83036; 97110; 97112; 97530; 97535

== ENCOUNTER → 2018-05-11 11:36 | Outpatient (CLI) | payer OTHER, MEDICAID, SELFPAY ==
[2018-05-11 13:57] LABS: Thyroid Stimulating Hormone 1.75 uIU/mL (0.47-4.68)
[2018-05-11 16:12] LABS: Alanine Aminotransferase 25 IU/L (21-72); Albumin 4.5 g/dL (3.5-5.0); Albumin Globulin Ratio 1.5 (1.0-2.8); Alkaline Phosphatase 66 U/L (38-126); Aspartate Aminotransferase 23 IU/L (17-59); BUN Creatinine Ratio 17.3 (6-22); Bilirubin Total 1.7 mg/dL (0.2-1.3); Blood Urea Nitrogen 19 mg/dL (9-20); Calcium 9.1 mg/dL (8.4-10.2); Carbon Dioxide 26 mmol/L (22-32); Chloride 102 mmol/L (98-107); Cholesterol 149 mg/dL (140-199); Estimated Glomerular Filt Rate > 60.0 mL/min (>60); Glucose 111 mg/dL (80-110); HDL Cholesterol 39 mg/dL (40-60); HEMOLYSIS 21 (0-50); LDL Cholesterol Calculated 89 mg/dL (<100); Potassium 4.1 mmol/L (3.4-5.1); Sodium 141 mmol/L (137-145); Total Protein 7.5 g/dL (6.3-8.2); Triglycerides 105 mg/dL (35-150)
[2018-05-11 16:19] LABS: Appearance Urine UA CLEAR; Bilirubin Urine UA NEGATIVE (NEGATIVE); Color Urine UA YELLOW; Glucose Urine UA NEGATIVE (Normal); Ketones Urine UA NEGATIVE (NEGATIVE); Leukocyte Esterase Urine UA NEGATIVE (NEGATIVE); Nitrite Urine UA NEGATIVE (Negative); Occult Blood Urine UA NEGATIVE (Negative); Protein Urine UA NEGATIVE (Negative); Specific Gravity Urine UA 1.015 (1.000-1.035); Urobilinogen Urine UA 0.2 E.U./dL (0.2)
[2018-05-11 20:22] LABS: Hemoglobin A1C% w Est Avg Glu 9.2 % (4.0-6.0)
== END ==
PROVIDERS: Family Provider Family Medicine; PCP Family Medicine; Visit Provider Family Medicine
DX: E11.9 Type 2 diabetes mellitus without complications (principal); E78.5 Hyperlipidemia, unspecified; N39.0 Urinary tract infection, site not specified; R31.9 Hematuria, unspecified; Z51.81 Encounter for therapeutic drug level monitoring
CPT/HCPCS: 36415; 80053; 80061; 81003; 83036; 84443

== ENCOUNTER → 2018-05-21 12:18 | Outpatient (CLI) | payer OTHER, MEDICAID, SELFPAY ==
[2018-05-21 13:12] LABS: Add Manual Diff / Slide Review NO; Basophils Percent Auto 0.4 % (0-2); Eosinophils Percent Auto 2.2 % (2-4); Hematocrit 43.4 % (41-53); Hemoglobin 14.4 g/dL (13.5-17.5); Mean Corpuscular HGB Conc 33.2 % (30-36); Mean Corpuscular Hemoglobin 28.6 PG (26-34); Monocytes Percent Auto 8.5 % (3-14); Neutrophils Absolute Auto 7700 /uL (3000-5900); Neutrophils Percent Auto 68.9 % (50-75); Platelet Count 246 X10^3/uL (150-400); Red Blood Cell Count 5.05 X10^6/uL (4.5-5.9); Red Cell Distribution Width 13.9 % (11.6-14.8); White Blood Cell Count 11.1 X10^3/uL (4.5-11.0)
[2018-05-21 13:38] LABS: BUN Creatinine Ratio 16.4 (6-22); Blood Urea Nitrogen 18 mg/dL (9-20); C-Reactive Protein Quant 3.3 mg/dL (<1.0); Calcium 9.5 mg/dL (8.4-10.2); Carbon Dioxide 28 mmol/L (22-32); Chloride 102 mmol/L (98-107); Estimated Glomerular Filt Rate > 60.0 mL/min (>60); Glucose 196 mg/dL (80-110); HEMOLYSIS < 15 (0-50); Potassium 4.5 mmol/L (3.4-5.1); Sodium 142 mmol/L (137-145)
== END ==
PROVIDERS: Family Provider Family Medicine; PCP Family Medicine; Visit Provider Physician Assistant
DX: R51 Headache (principal)
CPT/HCPCS: 36415; 80048; 85025; 86140

== ENCOUNTER → 2018-06-09 11:44 | Outpatient (CLI) | payer OTHER, MEDICAID, SELFPAY ==
[2018-06-09 12:27] LABS: Hemoglobin A1C% w Est Avg Glu 9.4 % (4.0-6.0)
[2018-06-09 12:48] LABS: Alanine Aminotransferase 28 IU/L (21-72); Albumin 4.4 g/dL (3.5-5.0); Albumin Globulin Ratio 1.6 (1.0-2.8); Alkaline Phosphatase 73 U/L (38-126); Aspartate Aminotransferase 17 IU/L (17-59); BUN Creatinine Ratio 20.9 (6-22); Bilirubin Total 1.2 mg/dL (0.2-1.3); Blood Urea Nitrogen 23 mg/dL (9-20); Calcium 9.7 mg/dL (8.4-10.2); Carbon Dioxide 27 mmol/L (22-32); Chloride 102 mmol/L (98-107); Estimated Glomerular Filt Rate > 60.0 mL/min (>60); Globulin 2.8 g/dL (1.7-4.1); Glucose 123 mg/dL (80-110); HEMOLYSIS < 15 (0-50); Potassium 4.9 mmol/L (3.4-5.1); Sodium 144 mmol/L (137-145); Total Protein 7.2 g/dL (6.3-8.2)
== END ==
PROVIDERS: PCP Family Medicine; Visit Provider Family Medicine
DX: E11.9 Type 2 diabetes mellitus without complications (principal)
CPT/HCPCS: 36415; 80053; 83036

== ENCOUNTER → 2018-06-15 11:26 | Outpatient (CLI) | payer OTHER, MEDICAID, SELFPAY ==
[2018-06-15 12:24] LABS: BUN Creatinine Ratio 16.4 (6-22); Blood Urea Nitrogen 18 mg/dL (9-20); Estimated Glomerular Filt Rate > 60.0 mL/min (>60)
== END ==
PROVIDERS: Family Provider Family Medicine; PCP Family Medicine; Visit Provider Physician Assistant
DX: Z01.812 Encounter for preprocedural laboratory examination (principal)
CPT/HCPCS: 36415; 82565; 84520

== ENCOUNTER → 2018-08-04 10:38 | Outpatient (CLI) | payer OTHER, MEDICAID, SELFPAY ==
--- NOTE | 2018-08-04 10:53 | DI.CT.S_ITS ---
PROCEDURE: CT SINUS SCREEN WO CON INDICATIONS: bilateral sinus facial pain TECHNIQUE: Noncontrast 3.0 mm axial images acquired from the frontal sinuses to the mid-sella, with coronal and sagittal reformats. For radiation dose reduction, the following was used: automated exposure control, adjustment of mA and/or kV according to patient size. COMPARISON: [facility], CT, HEAD WITHOUT CONTRAST, 06/20/2017, 18:06. FINDINGS: Image quality: Excellent. Maxillary Sinuses: No bony remodeling or destruction. Sinuses are clear. Ethmoid Air Cells: No bony remodeling or destruction. Sinuses are clear. Sphenoid Sinuses: No bony remodeling or destruction. Sinuses are clear. Frontal Sinuses: No bony remodeling or destruction. Sinuses are clear. Ostiomeatal Complexes: Ostiomeatal complexes are patent. No Rafal cells. Miscellaneous: Visualized intra-orbital contents are normal. No celina bullosa or paradoxical turbinate curvature. There is leftward nasal septal deviation. Note is made of prior frontotemporal craniotomy. IMPRESSION: 1. No active sinusitis. 2. Leftward nasal septum deviation. Dictated by: Cadence Harley M.D. on 08/04/2018 at 11:14 Approved by: Cadence Harley M.D. on 08/04/2018 at 11:17
--- NOTE | 2018-08-04 10:53 | DI.CT.S_ITS ---
PROCEDURE: CT CERVICAL SPINE WO CON INDICATIONS: pain down right arm with weakness TECHNIQUE: Noncontrast 3 mm thick sections acquired from the skull base to the T4 level. Sagittal and coronal reformats were then constructed. For radiation dose reduction, the following was used: automated exposure control, adjustment of mA and/or kV according to patient size. COMPARISON: None. FINDINGS: Image quality: Excellent. Bones: No fractures or dislocations. There is loss of normal cervical lordosis. There is degenerative disc disease, severe at C5-6, C6-C7, C7-T1 and T1-T2, [id number] at C3-C4 and C4-C5. There is mild central canal stenosis at C5-C6, C6-C7 and C7-T1. Multilevel foraminal stenosis, severe at C5-C6 bilaterally, C6-C7 and C7-T1 bilaterally, mild to moderate at other levels. Facet arthropathy scattere cervical spine bilaterally, most pronounced at C2-C3 on the left. Visualized superior ribs are intact. Soft tissues: Prevertebral soft tissues are normal in thickness. No paravertebral hematomas. No apical pneumothoraces. IMPRESSION: 1. Severe degenerative disc disease in cervical spine causing mild central canal stenosis and severe bilateral foraminal stenosis at C5-6, C6-C7 and C7-T1. 2. Bilateral facet arthropathy, most pronounced at T2 and T3 on the left. Dictated by: Cadence Harley M.D. on 08/04/2018 at 11:18 Approved by: Cadence Harley M.D. on 08/04/2018 at 11:23
== END ==
PROVIDERS: Family Provider Family Medicine; PCP Family Medicine; Visit Provider Family Medicine
DX: M79.601 Pain in right arm (principal); M62.81 Muscle weakness (generalized); S03.00XA Dislocation of jaw, unspecified side, initial encounter; G50.1 Atypical facial pain; M50.322 Other cervical disc degeneration at C5-C6 level; M48.02 Spinal stenosis, cervical region; M47.812 Spondylosis without myelopathy or radiculopathy, cervical region; J34.2 Deviated nasal septum; H92.09 Otalgia, unspecified ear; I69.320 Aphasia following cerebral infarction
CPT/HCPCS: 70486; 72125

== ENCOUNTER → 2018-08-31 11:28 | Outpatient (CLI) | payer OTHER, MEDICAID, SELFPAY ==
[2018-08-31 12:07] LABS: Add Manual Diff / Slide Review NO; Basophils Absolute Auto 0 /uL (0-100); Basophils Percent Auto 0.4 % (0-2); Eosinophils Absolute Auto 300 /uL (0-450); Eosinophils Percent Auto 3.1 % (2-4); Hematocrit 43.3 % (41-53); Hemoglobin 14.4 g/dL (13.5-17.5); Lymphocytes Absolute Auto 2300 /uL (1100-4500); Lymphocytes Percent Auto 21.7 % (25-40); Mean Corpuscular HGB Conc 33.1 % (30-36); Mean Corpuscular Hemoglobin 28.8 PG (26-34); Mean Corpuscular Volume 86.8 fL (80-100); Monocytes Absolute Auto 800 /uL (0-900); Monocytes Percent Auto 7.2 % (3-14); Neutrophils Absolute Auto 7000 /uL (1500-7000); Neutrophils Percent Auto 67.6 % (50-75); Platelet Count 207 X10^3/uL (150-400); Red Blood Cell Count 4.99 X10^6/uL (4.5-5.9); Red Cell Distribution Width 14.4 % (11.6-14.8); White Blood Cell Count 10.4 X10^3/uL (4.5-11.0)
[2018-08-31 12:41] LABS: Alanine Aminotransferase 38 IU/L (21-72); Albumin 4.2 g/dL (3.5-5.0); Albumin Globulin Ratio 1.5 (1.0-2.8); Alkaline Phosphatase 71 U/L (38-126); Aspartate Aminotransferase 25 IU/L (17-59); BUN Creatinine Ratio 18.2 (6-22); Bilirubin Total 1.4 mg/dL (0.2-1.3); Blood Urea Nitrogen 20 mg/dL (9-20); Calcium 9.5 mg/dL (8.4-10.2); Carbon Dioxide 27 mmol/L (22-32); Chloride 102 mmol/L (98-107); Estimated Glomerular Filt Rate > 60.0 mL/min (>60); Globulin 2.8 g/dL (1.7-4.1); Glucose 218 mg/dL (80-110); HEMOLYSIS < 15 (0-50); Sodium 139 mmol/L (137-145)
[2018-08-31 12:49] LABS: Hemoglobin A1C% w Est Avg Glu 8.8 % (4.0-6.0)
== END ==
PROVIDERS: PCP Family Medicine; Visit Provider Family Medicine
DX: E11.9 Type 2 diabetes mellitus without complications (principal); Z51.81 Encounter for therapeutic drug level monitoring
CPT/HCPCS: 36415; 80053; 83036; 85025

== ENCOUNTER → 2018-11-30 11:33 | Outpatient (CLI) | payer OTHER, MEDICAID, SELFPAY ==
[2018-11-30 12:42] LABS: Hemoglobin A1C% w Est Avg Glu 7.2 % (4.0-6.0)
[2018-11-30 13:02] LABS: Alanine Aminotransferase 31 IU/L (21-72); Albumin 4.1 g/dL (3.5-5.0); Albumin Globulin Ratio 1.5 (1.0-2.8); Alkaline Phosphatase 63 U/L (38-126); Aspartate Aminotransferase 22 IU/L (17-59); BUN Creatinine Ratio 19.2 (6-22); Bilirubin Total 1.1 mg/dL (0.2-1.3); Blood Urea Nitrogen 23 mg/dL (9-20); Calcium 9.7 mg/dL (8.4-10.2); Carbon Dioxide 28 mmol/L (22-32); Chloride 103 mmol/L (98-107); Cholesterol 137 mg/dL (140-199); Estimated Glomerular Filt Rate 59.9 mL/min (>60); Globulin 2.7 g/dL (1.7-4.1); Glucose 131 mg/dL (80-110); HDL Cholesterol 41 mg/dL (40-60); HEMOLYSIS < 15 (0-50); LDL Cholesterol Calculated 65 mg/dL (<100); Potassium 5.1 mmol/L (3.4-5.1); Sodium 140 mmol/L (137-145); Total Protein 6.8 g/dL (6.3-8.2); Triglycerides 153 mg/dL (35-150)
== END ==
PROVIDERS: PCP Family Medicine; Visit Provider Family Medicine
DX: E11.9 Type 2 diabetes mellitus without complications (principal); I69.30 Unspecified sequelae of cerebral infarction; Z51.81 Encounter for therapeutic drug level monitoring
CPT/HCPCS: 36415; 80053; 80061; 83036

== ENCOUNTER → 2019-01-23 11:49 | Outpatient (CLI) | payer OTHER, MEDICAID, SELFPAY | PROVIDERS: PCP Family Medicine; Visit Provider Physician Assistant | DX: L03.90 Cellulitis, unspecified (principal) | CPT/HCPCS: 87070; 87077; 87147; 87186; 87205 ==

== ENCOUNTER 2019-02-01 12:00 | Outpatient (RCR) | payer MEDICARE, OTHER, MEDICAID, SELFPAY ==
--- NOTE | 2018-12-14 16:56 | PT.OIE ---
Current Diagnoses Stiffness of unspecified joint, not elsewhere classified (12/14/18) Spondylosis without myelopathy or radiculopathy, cervical region (12/14/18) Cervicalgia (12/14/18) Past Medical History (Last Reviewed 12/05/18 @ 11:55 by Rebecca Bae DO) Atrial fibrillation (Chronic 02/21/15) BPH (benign prostatic hyperplasia) (Chronic) CHF (congestive heart failure) (Chronic) Cardiomyopathy (Chronic 02/21/15) Cataracts, bilateral (Chronic 07/26/17) Coronary artery disease (Chronic) Diabetes (Chronic) Hyperlipemia (Chronic) Hypertension (Chronic) Peripheral vascular disease (Chronic) Renal failure (Chronic) Hematuria (Resolved ~2016) History of CVA (cerebrovascular accident) (Resolved 07/12/16) Status post myocardial infarction (Resolved 1994) Atrial fibrillation (Inactive) Benign prostatic hyperplasia (Inactive) Cardiomyopathy (Inactive) Diabetes mellitus (Inactive) Hematuria (Inactive) Hyperlipidemia (Inactive) Hypertension (Inactive) PVD (peripheral vascular disease) (Inactive) Past Surgical History (Last Reviewed 12/05/18 @ 11:55 by Rebecca Bae DO) History of cranioplasty (Resolved 10/30/16) History of surgery on arm (Resolved) History of vasectomy (Resolved) S/P TURP (Resolved 10/19/13) Status post craniectomy (Resolved 07/12/16) Provider Visit Care Team Role Provider Type Rebecca Bae DO Other Providers Physician Primary Care Provider Specialty: Family Practice Address: [address] [place] [address] Email: [email or web address] Tim Amin DO Attending Provider Physician Specialty: Physiatry Pain Management Address: [address] [place] [address] Email: Physical Therapy Initial Evaluation PT-OP-A Visit Information Start: 12/14/18 16:26 Freq: Status: Active Protocol: Document 12/14/18 12:15 DCW (Rec: 12/14/18 16:56 DCW [id number]) Out-Patient Physical Therapy Visit Information Visit Information Visit Type Initial Evaluation Visit Note 15 minutes late secondary to paperwork Visit Start Time 12:15 Visit Stop Time 12:45 Total Visit Minutes 30 Visit Number 1 Number of SUSTAINABILITY PROJECT COORDINATOR Visits 0 Evaluation Information Evaluation Date 12/14/18 PT-OP-B Current Condition Start: 12/14/18 16:26 Freq: Status: Active Protocol: Document 12/14/18 12:15 DCW (Rec: 12/14/18 16:56 DCW [id number]) Current Condition History of Current Condition Onset Date 3 months Current Complaints cervical pain History of Current Condition Pt is a 68 year old male presenting to skilled PT with complaints of neck pain and stiffness. Pt was previously treated at this clinic following a CVA two years ago, and was only recently discharged. Pt has ongoing communication difficulty and expressive aphasia, and struggles to describe his pain . Pt's caregiver is along for his evaluation, and is able to translate some of what the patient is saying, and is able to answer other questions regarding his current function . Caregiver reports most of the time, pt will deny pain, but then spends a lot of time rubbing his neck and trying to stretch it out on his own. Pt unable to answer if anything causes increased pain, but caregiver notes that it seems to be more of a daily, ongoing thing. Caregiver also notes that he seems to respond well to massage with CBD cream, which they've been trying at home. Prior Treatments and Tests X-ray: 1. Severe degenerative disc disease in cervical spine causing mild central canal stenosis and severe bilateral foraminal stenosis at C5-6, C6-C7 and C7-T1. 2. Bilateral facet arthropathy , most pronounced at T2 and T3 on the left. -per visit note on 10/24/[address] Amin Future Testing and Treatments Planned Based upon his response will consider left-sided axial interventions although given his comorbidities including the previous CVA, aphasia as well as diabetes the risk versus benefit profile are quite prohibitive. Tim Amin D.O.10/24/18 Treatment Goals Patient/Caregiver Goals Reduce pt's cervical neck pain and stiffness Prior Functional Status Baseline Function- ADL's Needs Assist Baseline Function- Mobility Needs Assist Baseline Function- Other Pt has caregiver assistance for generally all activities Personal Factors Other Personal Factors That May Effect CVA, OA, CHF, Depression, DM Therapy/Recovery II, [place], Neuropathy, PE/SOB PT-OP-C Subjective Start: 12/14/18 16:26 Freq: Status: Active Protocol: Document 12/14/18 12:15 DCW (Rec: 12/14/18 16:56 DCW [id number]) OP-PT Pain Assessment Pain Assessment Grid Paper Pain Assessment Grid Completed Yes: Filled out by caregiver Location Bilateral Posterior Neck Intensity 5 Scale Used Numeric (1 - 10) PT-OP-F Manual Assessment Start: 12/14/18 16:26 Freq: Status: Active Protocol: Document 12/14/18 12:15 DCW (Rec: 12/14/18 16:56 DCW [id number]) Manual Assessments Soft Tissue Assessment Soft Tissue Mobility Assessment Pt has severe tone in right suboccipitals Pt has moderate tone in left suboccipitals, bilateral scalenes, and bilateral upper trap Joint Mobility Assessment Joint Mobility Assessment Significant crepitus with any cervical ROM, especially rotation left to right PT-OP-K Range of Motion Start: 12/14/18 16:26 Freq: Status: Active Protocol: Document 12/14/18 12:15 DCW (Rec: 12/14/18 16:56 DCW [id number]) Cervical Spine Range of Motion Cervical Spine Active Degrees Testing Position Sitting Flexion 80 Extension 70 Rotation Left 58 Rotation Right 56 Lateral Flexion Left 30 Lateral Flexion Right 23 ROM Limitations Soft Tissue Tightness Bony Restriction Muscle Tone PT-OP-L Special Tests Start: 12/14/18 16:26 Freq: Status: Active Protocol: Document 12/14/18 12:15 DCW (Rec: 12/14/18 16:56 DCW [id number]) Special Tests Cervical Spine Special Tests Passive Neck Flexion Test Results Negative Traction Test Results Negative Spurling's Test Test Results Negative Slump Test Results Negative Foraminal Compression Test Results Negative PT-OP-T Assessment and Plan Start: 12/14/18 16:26 Freq: Status: Active Protocol: Document 12/14/18 12:15 DCW (Rec: 12/14/18 16:56 DCW [id number]) Physical Therapy Assessment Rehab Potential Rehabilitation Potential Good Evaluation Complexity Number of Personal Factors/Comorbidities 3 or More Number of Body Systems Impaired 4 or More Clinical Presentation at Evaluation Unstable Impairments Impairments Functional Activities Pain Posture ROM Strength Tone Other Impairments Expressive aphasia, impulsiveness Other Concerns Barriers to Rehabilitation Ongoing cognitive/expressive difficulties secondary to prior CVA Goals 2 Impairment Limited cervical rotation and lateral flexion Prison Goal (LTG) Pt to demonstrate bilateral cervical rotation to 70? and bilateral cervical lateral flexion to 40? LTG Duration 02/13/19 1 Impairment Pt does not have an appropriate home exercise program Short Term Goal (STG) Pt to be compliant with an appropriate HEP with assistance from his family and caregiver STG Duration 01/13/19 Assessment Summary Assessment Pt presents with decreased ROM and pain in his cervical spine secondary to severe DJD and increased paraspinal tone. Pt's ongoing cognitive/ expressive difficulties secondary to prior CVA are the largest limiting factor for skilled therapy, and pt demonstrates difficulty expressing when his neck is really bothering him, what increases or decreased pain, and may have not been able to express results of special testing, which will limit ability to properly diagnosis. Pt should benefit from skilled therapy focused mainly on decreasing tone in his UT, SCM, Scalenes, and Suboccipitals, as well as pain -control modalities and a trial of cervical traction. Pt will likely require assistance from his caregiver in performing any HEP, so therapists should ensure any instructions be sent with pt in writing. Physical Therapy Plan Frequency and Duration Frequency of Treatment 2x/Week Duration of Treatment 10 weeks Plan of Care Start Date 12/14/18 Plan of Care End Date 02/22/19 Therapeutic Interventions Therapeutic Interventions Aquatic Therapy Home Exercise Program Joint Mobilizations Manual Therapy Patient/Caregiver Education Self-Care/Home Management Soft Tissue Mobilization Therapeutic Activities Therapeutic Exercises Modalities Cold Pack/Ice Massage Electric Stimulation Hot Packs Traction- Mechanical Next Visit Focus/Plan Next Note Type Treatment Note Next Visit Plan STM, Cervical strengthening, Trial of cervical traction, e- stim
--- NOTE | 2018-12-14 16:57 | PT.OPPOC ---
Current Diagnoses Stiffness of unspecified joint, not elsewhere classified (12/14/18) Spondylosis without myelopathy or radiculopathy, cervical region (12/14/18) Cervicalgia (12/14/18) Provider Visit Care Team Role Provider Type Rebecca Bae DO Other Providers Physician Primary Care Provider Specialty: Family Practice Address: [address] [place] [address], [id number] Email: [email or web address] Tim Amin DO Attending Provider Physician Specialty: Physiatry Pain Management Address: [address] [place] [address], [id number] Email: Plan Of Care PT-OP-T Assessment and Plan Start: 12/14/18 16:26 Freq: Status: Active Protocol: Document 12/14/18 12:15 DCW (Rec: 12/14/18 16:56 DCW [id number]) Physical Therapy Assessment Rehab Potential Rehabilitation Potential Good Evaluation Complexity Number of Personal Factors/Comorbidities 3 or More Number of Body Systems Impaired 4 or More Clinical Presentation at Evaluation Unstable Impairments Impairments Functional Activities Pain Posture ROM Strength Tone Other Impairments Expressive aphasia, impulsiveness Other Concerns Barriers to Rehabilitation Ongoing cognitive/expressive difficulties secondary to prior CVA Goals 2 Impairment Limited cervical rotation and lateral flexion Estate Planning Paralegal Goal (LTG) Pt to demonstrate bilateral cervical rotation to 70? and bilateral cervical lateral flexion to 40? LTG Duration 02/13/19 1 Impairment Pt does not have an appropriate home exercise program Short Term Goal (STG) Pt to be compliant with an appropriate HEP with assistance from his family and caregiver STG Duration 01/13/19 Assessment Summary Assessment Pt presents with decreased ROM and pain in his cervical spine secondary to severe DJD and increased paraspinal tone. Pt's ongoing cognitive/ expressive difficulties secondary to prior CVA are the largest limiting factor for skilled therapy, and pt demonstrates difficulty expressing when his neck is really bothering him, what increases or decreased pain, and may have not been able to express results of special testing, which will limit ability to properly diagnosis. Pt should benefit from skilled therapy focused mainly on decreasing tone in his UT, SCM, Scalenes, and Suboccipitals, as well as pain -control modalities and a trial of cervical traction. Pt will likely require assistance from his caregiver in performing any HEP, so therapists should ensure any instructions be sent with pt in writing. Physical Therapy Plan Frequency and Duration Frequency of Treatment 2x/Week Duration of Treatment 10 weeks Plan of Care Start Date 12/14/18 Plan of Care End Date 02/22/19 Therapeutic Interventions Therapeutic Interventions Aquatic Therapy Home Exercise Program Joint Mobilizations Manual Therapy Patient/Caregiver Education Self-Care/Home Management Soft Tissue Mobilization Therapeutic Activities Therapeutic Exercises Modalities Cold Pack/Ice Massage Electric Stimulation Hot Packs Traction- Mechanical Next Visit Focus/Plan Next Note Type Treatment Note Next Visit Plan STM, Cervical strengthening, Trial of cervical traction, e- stim Plan of Care Dates Plan of Care Start Date 12/14/18 Plan of Care End Date 02/22/19 Please Sign and Return: I have reviewed this Plan of Care and certify that the skilled therapy services above are required to meet the patient?s needs. Physician Signature Date Printed Name and Credentials Clinical Instructor Signature Printed Name and Credentials
--- NOTE | 2018-12-21 11:19 | PT.OTN ---
Current Diagnoses Stiffness of unspecified joint, not elsewhere classified (12/21/18) Spondylosis without myelopathy or radiculopathy, cervical region (12/21/18) Cervicalgia (12/21/18) Physical Therapy Treatment Note PT-OP-A Visit Information Start: 12/14/18 16:26 Freq: Status: Active Protocol: Document 12/21/18 10:30 DCW (Rec: 12/21/18 11:18 DCW [id number]) Out-Patient Physical Therapy Visit Information Visit Information Visit Type Treatment Note Visit Start Time 10:30 Visit Stop Time 11:15 Total Visit Minutes 45 Visit Number 2 Number of MEDICAL RECEPTION SPECIALIST Visits 0 Evaluation Information Evaluation Date 12/14/18 PT-OP-B Current Condition Start: 12/14/18 16:26 Freq: Status: Active Protocol: Document 12/14/18 12:15 DCW (Rec: 12/14/18 16:56 DCW [id number]) Current Condition History of Current Condition Onset Date 3 months Current Complaints cervical pain History of Current Condition Pt is a 68 year old male presenting to skilled PT with complaints of neck pain and stiffnes. Pt was previously treated at this clinic following a CVA two years ago, and was only recently discharged. Pt has ongoing communication difficulty and expressive aphasia, and struggles to describe his pain . Pt's caregive is along for his evaluation, and is able to translate some of what the patient is saying, and is able to answer other questions regarding his current function . Caregiver reports most of the time, pt will deny pain, but then spends a lot of time rubbing his neck and trying to stretch it out on his own. Pt unable to answer if anything causes increased pain, but caregiver notes that it seems to be more of a daily, ongoing thing. Caregiver also notes that he seems to respond well to massage with CBD cream, which they've been trying at home. Prior Treatments and Tests X-ray: 1. Severe degenerative disc disease in cervical spine causing mild central canal stenosis and severe bilateral foraminal stenosis at C5-6, C6-C7 and C7-T1. 2. Bilateral facet arthropathy , most pronounced at T2 and T3 on the left. -per visit note on 10/24/[address] Amin Future Testing and Treatments Planned Based upon his response will consider left-sided axial interventions although given his comorbidities including the previous CVA, aphasia as well as diabetes the risk versus benefit profile are quite prohibitive. Tim Amin D.O.10/24/18 Treatment Goals Patient/Caregiver Goals Reduce pt's cervical neck pain and stiffness Prior Functional Status Baseline Function- ADL's Needs Assist Baseline Function- Mobility Needs Assist Baseline Function- Other Pt has caregiver assistance for generally all activities Personal Factors Other Personal Factors That May Effect CVA, OA, CHF, Depression, DM Therapy/Recovery II, [place], Neuropathy, PE/SOB PT-OP-C Subjective Start: 12/14/18 16:26 Freq: Status: Active Protocol: Document 12/21/18 10:30 DCW (Rec: 12/21/18 11:18 DCW [id number]) OP-PT Subjective Patient Comments Patient Comments Pt indicates that he has a headache. PT-OP-F Manual Assessment Start: 12/14/18 16:26 Freq: Status: Active Protocol: Document 12/14/18 12:15 DCW (Rec: 12/14/18 16:56 DCW [id number]) Manual Assessments Soft Tissue Assessment Soft Tissue Mobility Assessment Pt has severe tone in right suboccipitals Pt has moderate tone in left suboccipitals, bilateral scalenes, and bilateral upper trap Joint Mobility Assessment Joint Mobility Assessment Significant crepitus with any cervical ROM, especially rotation left to right PT-OP-K Range of Motion Start: 12/14/18 16:26 Freq: Status: Active Protocol: Document 12/14/18 12:15 DCW (Rec: 12/14/18 16:56 DCW [id number]) Cervical Spine Range of Motion Cervical Spine Active Degrees Testing Position Sitting Flexion 80 Extension 70 Rotation Left 58 Rotation Right 56 Lateral Flexion Left 30 Lateral Flexion Right 23 ROM Limitations Soft Tissue Tightness Bony Restriction Muscle Tone PT-OP-L Special Tests Start: 12/14/18 16:26 Freq: Status: Active Protocol: Document 12/14/18 12:15 DCW (Rec: 12/14/18 16:56 DCW [id number]) Special Tests Cervical Spine Special Tests Passive Neck Flexion Test Results Negative Traction Test Results Negative Spurling's Test Test Results Negative Slump Test Results Negative Foraminal Compression Test Results Negative PT-OP-Q Treatments Start: 12/14/18 16:26 Freq: Status: Active Protocol: Document 12/21/18 10:30 DCW (Rec: 12/21/18 11:18 DCW [id number]) Therapeutic Exercises Sitting Exercises 2 Sitting Exercise Name Anterior Scalene Stretch Side bilateral 1 Sitting Exercise Name Upper Trap Stretch Side bilateral Manual Therapy Treatment Soft Tissue Mobilization Suboccipitals Body Location B Suboccipitals Mobilization Type Myofascial Release Sustained Pressure Trigger Point Release Scalene Body Location B Scalene Mobilization Type Sustained Pressure Trigger Point Release Upper Trap Body Location B Upper Trap Mobilization Type Strain/Counterstrain Strumming Sustained Pressure Trigger Point Release Body Position Hooklying Manual Traction Cervical Details Cervical Traction Body Position Hooklying PT-OP-R Modalities Start: 12/14/18 16:26 Freq: Status: Active Protocol: Document 12/21/18 10:30 DCW (Rec: 12/21/18 11:19 DCW [id number]) Spinal Traction Traction Treatment Cervical Method Mechanical Static Patient Position Hooklying Force Applied (Pounds) 20 Duration of Treatment (Minutes) 10 Heating Pad Applied No PT-OP-T Assessment and Plan Start: 12/14/18 16:26 Freq: Status: Active Protocol: Document 12/21/18 10:30 DCW (Rec: 12/21/18 11:18 DCW [id number]) Physical Therapy Assessment Impairments Impairments Functional Activities Pain Posture ROM Strength Tone Other Impairments Expressive aphasia, impulsiveness Goals 2 Impairment Limited cervical rotation and lateral flexion Mantel Craftsman Goal (LTG) Pt to demonstrate bilateral cervical rotation to 70? and bilateral cervical lateral flexion to 40? LTG Duration 02/13/19 1 Impairment Pt does not have an appropriate home exercise program Short Term Goal (STG) Pt to be compliant with an appropriate HEP with assistance from his family and caregiver STG Duration 01/13/19 Assessment Summary Assessment Pt tolerated treatment well, pt and care-beam doffer receptive to stretching for HEP. Trial of Mechanical Traction attempted, will assess effectiveness next visit. Physical Therapy Plan Frequency and Duration Frequency of Treatment 2x/Week Duration of Treatment 10 weeks Plan of Care Start Date 12/14/18 Plan of Care End Date 02/22/19 Therapeutic Interventions Therapeutic Interventions Aquatic Therapy Home Exercise Program Joint Mobilizations Manual Therapy Patient/Caregiver Education Self-Care/Home Management Soft Tissue Mobilization Therapeutic Activities Therapeutic Exercises Modalities Cold Pack/Ice Massage Electric Stimulation Hot Packs Traction- Mechanical Next Visit Focus/Plan Next Note Type Treatment Note Next Visit Plan STM, Cervical strengthening, cervical traction, e-stim
--- NOTE | 2018-12-27 15:18 | PT.OTN ---
Current Diagnoses Stiffness of unspecified joint, not elsewhere classified (12/27/18) Spondylosis without myelopathy or radiculopathy, cervical region (12/27/18) Cervicalgia (12/27/18) Physical Therapy Treatment Note PT-OP-A Visit Information Start: 12/14/18 16:26 Freq: Status: Active Protocol: Document 12/27/18 15:05 EA (Rec: 12/27/18 15:10 EA [id number]) Out-Patient Physical Therapy Visit Information Visit Information Visit Type Treatment Note Visit Start Time 14:30 Visit Stop Time 15:15 Total Visit Minutes 38 Visit Number 3 PT-OP-B Current Condition Start: 12/14/18 16:26 Freq: Status: Active Protocol: Document 12/14/18 12:15 DCW (Rec: 12/14/18 16:56 DCW [id number]) Current Condition History of Current Condition Onset Date 3 months Current Complaints cervical pain History of Current Condition Pt is a 68 year old male presenting to skilled PT with complaints of neck pain and stiffnes. Pt was previously treated at this clinic following a CVA two years ago, and was only recently discharged. Pt has ongoing communication difficulty and expressive aphasia, and struggles to describe his pain . Pt's caregive is along for his evaluation, and is able to translate some of what the patient is saying, and is able to answer other questions regarding his current function . Caregiver reports most of the time, pt will deny pain, but then spends a lot of time rubbing his neck and trying to stretch it out on his own. Pt unable to answer if anything causes increased pain, but caregiver notes that it seems to be more of a daily, ongoing thing. Caregiver also notes that he seems to respond well to massage with CBD cream, which they've been trying at home. Prior Treatments and Tests X-ray: 1. Severe degenerative disc disease in cervical spine causing mild central canal stenosis and severe bilateral foraminal stenosis at C5-6, C6-C7 and C7-T1. 2. Bilateral facet arthropathy , most pronounced at T2 and T3 on the left. -per visit note on 10/24/[address] Amin Future Testing and Treatments Planned Based upon his response will consider left-sided axial interventions although given his comorbidities including the previous CVA, aphasia as well as diabetes the risk versus benefit profile are quite prohibitive. Tim Amin D.O.10/24/18 Treatment Goals Patient/Caregiver Goals Reduce pt's cervical neck pain and stiffness Prior Functional Status Baseline Function- ADL's Needs Assist Baseline Function- Mobility Needs Assist Baseline Function- Other Pt has caregiver assistance for generally all activities Personal Factors Other Personal Factors That May Effect CVA, OA, CHF, Depression, DM Therapy/Recovery II, CA, Neuropathy, PE/SOB PT-OP-C Subjective Start: 12/14/18 16:26 Freq: Status: Active Protocol: Document 12/27/18 15:05 EA (Rec: 12/27/18 15:10 EA [id number]) OP-PT Subjective Patient Comments Patient Comments Caregiver reports neck pain complaint mostly in the morning. Caregiver reports that patient likes static traction. PT-OP-F Manual Assessment Start: 12/14/18 16:26 Freq: Status: Active Protocol: Document 12/14/18 12:15 DCW (Rec: 12/14/18 16:56 DCW [id number]) Manual Assessments Soft Tissue Assessment Soft Tissue Mobility Assessment Pt has severe tone in right suboccipitals Pt has moderate tone in left suboccipitals, bilateral scalenes, and bilateral upper trap Joint Mobility Assessment Joint Mobility Assessment Significant crepitus with any cervical ROM, especially rotation left to right PT-OP-K Range of Motion Start: 12/14/18 16:26 Freq: Status: Active Protocol: Document 12/14/18 12:15 DCW (Rec: 12/14/18 16:56 DCW [id number]) Cervical Spine Range of Motion Cervical Spine Active Degrees Testing Position Sitting Flexion 80 Extension 70 Rotation Left 58 Rotation Right 56 Lateral Flexion Left 30 Lateral Flexion Right 23 ROM Limitations Soft Tissue Tightness Bony Restriction Muscle Tone PT-OP-L Special Tests Start: 12/14/18 16:26 Freq: Status: Active Protocol: Document 12/14/18 12:15 DCW (Rec: 12/14/18 16:56 DCW [id number]) Special Tests Cervical Spine Special Tests Passive Neck Flexion Test Results Negative Traction Test Results Negative Spurling's Test Test Results Negative Slump Test Results Negative Foraminal Compression Test Results Negative PT-OP-Q Treatments Start: 12/14/18 16:26 Freq: Status: Active Protocol: Document 12/27/18 15:10 EA (Rec: 12/27/18 15:11 EA [id number]) Manual Therapy Treatment Soft Tissue Mobilization Suboccipitals Body Location B Suboccipitals Mobilization Type Myofascial Release Sustained Pressure Trigger Point Release Scalene Body Location B Scalene Mobilization Type Sustained Pressure Trigger Point Release Upper Trap Body Location B Upper Trap Mobilization Type Strain/Counterstrain Strumming Sustained Pressure Trigger Point Release Body Position Hooklying Manual Traction Cervical Details Cervical Traction Body Position Hooklying PT-OP-R Modalities Start: 12/14/18 16:26 Freq: Status: Active Protocol: Document 12/27/18 15:05 EA (Rec: 12/27/18 15:10 EA [id number]) Spinal Traction Traction Treatment Cervical Method Mechanical Static Patient Position Hooklying Force Applied (Pounds) 15 Duration of Treatment (Minutes) 10 Heating Pad Applied No PT-OP-T Assessment and Plan Start: 12/14/18 16:26 Freq: Status: Active Protocol: Document 12/27/18 15:05 EA (Rec: 12/27/18 15:10 EA [id number]) Physical Therapy Assessment Assessment Summary Assessment End range side bend to right and also rotation increased symptoms. Patient tolerated treatment. Physical Therapy Plan Next Visit Focus/Plan Next Note Type Treatment Note Next Visit Plan STM, Cervical strengthening, cervical traction, e-stim
--- NOTE | 2019-01-03 15:05 | PT.OTN ---
Current Diagnoses Stiffness of unspecified joint, not elsewhere classified (01/03/19) Spondylosis without myelopathy or radiculopathy, cervical region (01/03/19) Cervicalgia (01/03/19) Physical Therapy Treatment Note PT-OP-A Visit Information Start: 12/14/18 16:26 Freq: Status: Active Protocol: Document 01/03/19 14:55 SA (Rec: 01/03/19 15:05 SA [email or web address]) Out-Patient Physical Therapy Visit Information Visit Information Visit Type Treatment Note Visit Start Time 12:15 Visit Stop Time 13:00 Total Visit Minutes 45 Visit Number 4 Number of INFORMATION TECHNOLOGY ANALYST Visits 1 PT-OP-B Current Condition Start: 12/14/18 16:26 Freq: Status: Active Protocol: Document 12/14/18 12:15 DCW (Rec: 12/14/18 16:56 DCW [id number]) Current Condition History of Current Condition Onset Date 3 months Current Complaints cervical pain History of Current Condition Pt is a 68 year old male presenting to skilled PT with complaints of neck pain and stiffnes. Pt was previously treated at this clinic following a CVA two years ago, and was only recently discharged. Pt has ongoing communication difficulty and expressive aphasia, and struggles to describe his pain . Pt's caregive is along for his evaluation, and is able to translate some of what the patient is saying, and is able to answer other questions regarding his current function . Caregiver reports most of the time, pt will deny pain, but then spends a lot of time rubbing his neck and trying to stretch it out on his own. Pt unable to answer if anything causes increased pain, but caregiver notes that it seems to be more of a daily, ongoing thing. Caregiver also notes that he seems to respond well to massage with CBD cream, which they've been trying at home. Prior Treatments and Tests X-ray: 1. Severe degenerative disc disease in cervical spine causing mild central canal stenosis and severe bilateral foraminal stenosis at C5-6, C6-C7 and C7-T1. 2. Bilateral facet arthropathy , most pronounced at T2 and T3 on the left. -per visit note on 10/24/[address] Amin Future Testing and Treatments Planned Based upon his response will consider left-sided axial interventions although given his comorbidities including the previous CVA, aphasia as well as diabetes the risk versus benefit profile are quite prohibitive. Tim Amin D.O.10/24/18 Treatment Goals Patient/Caregiver Goals Reduce pt's cervical neck pain and stiffness Prior Functional Status Baseline Function- ADL's Needs Assist Baseline Function- Mobility Needs Assist Baseline Function- Other Pt has caregiver assistance for generally all activities Personal Factors Other Personal Factors That May Effect CVA, OA, CHF, Depression, DM Therapy/Recovery II, [place], Neuropathy, PE/SOB PT-OP-C Subjective Start: 12/14/18 16:26 Freq: Status: Active Protocol: Document 01/03/19 14:55 SA (Rec: 01/03/19 15:05 SA [email or web address]) OP-PT Subjective Patient Comments Patient Comments Caregiver Casey present for session, pt reports continued neck pain. Caregiver reports pt is inconsistent with HEP, needs lots of encouragement. PT-OP-F Manual Assessment Start: 12/14/18 16:26 Freq: Status: Active Protocol: Document 12/14/18 12:15 DCW (Rec: 12/14/18 16:56 DCW [id number]) Manual Assessments Soft Tissue Assessment Soft Tissue Mobility Assessment Pt has severe tone in right suboccipitals Pt has moderate tone in left suboccipitals, bilateral scalenes, and bilateral upper trap Joint Mobility Assessment Joint Mobility Assessment Significant crepitus with any cervical ROM, especially rotation left to right PT-OP-K Range of Motion Start: 12/14/18 16:26 Freq: Status: Active Protocol: Document 12/14/18 12:15 DCW (Rec: 12/14/18 16:56 DCW [id number]) Cervical Spine Range of Motion Cervical Spine Active Degrees Testing Position Sitting Flexion 80 Extension 70 Rotation Left 58 Rotation Right 56 Lateral Flexion Left 30 Lateral Flexion Right 23 ROM Limitations Soft Tissue Tightness Bony Restriction Muscle Tone PT-OP-L Special Tests Start: 12/14/18 16:26 Freq: Status: Active Protocol: Document 12/14/18 12:15 DCW (Rec: 12/14/18 16:56 DCW [id number]) Special Tests Cervical Spine Special Tests Passive Neck Flexion Test Results Negative Traction Test Results Negative Spurling's Test Test Results Negative Slump Test Results Negative Foraminal Compression Test Results Negative PT-OP-Q Treatments Start: 12/14/18 16:26 Freq: Status: Active Protocol: Document 01/03/19 14:55 SA (Rec: 01/03/19 15:05 SA [email or web address]) Therapeutic Exercises Sitting Exercises Chin Tucks Reps/Minutes 20x Comments postural cues Cervical rotations Side bilateral Reps/Minutes 2 mins Comments cues for posture Postural correction Side bilateral Resistance tactile cues/mirror Reps/Minutes 30 x 5 Comments education with caregiver 1 Sitting Exercise Name Upper Trap Stretch Side bilateral Reps/Minutes 30 x 3 each Manual Therapy Treatment Soft Tissue Mobilization Suboccipitals Body Location B Suboccipitals Mobilization Type Myofascial Release Sustained Pressure Trigger Point Release Body Position Hooklying Scalene Body Location B Scalene Mobilization Type Sustained Pressure Trigger Point Release Body Position Sitting Upper Trap Body Location B Upper Trap Mobilization Type Strain/Counterstrain Strumming Sustained Pressure Trigger Point Release Body Position Sitting Manual Traction Cervical Details Cervical Traction Body Position Hooklying Reps/Duration 6 min Manual Techniques PROM w/stretching Body Location c-spine Body Position Hooklying Comments rotation, sidebend PT-OP-R Modalities Start: 12/14/18 16:26 Freq: Status: Active Protocol: Document 12/27/18 15:05 EA (Rec: 12/27/18 15:10 EA [id number]) Spinal Traction Traction Treatment Cervical Method Mechanical Static Patient Position Hooklying Force Applied (Pounds) 15 Duration of Treatment (Minutes) 10 Heating Pad Applied No PT-OP-T Assessment and Plan Start: 12/14/18 16:26 Freq: Status: Active Protocol: Document 01/03/19 14:55 SA (Rec: 01/03/19 15:05 SA [email or web address]) Physical Therapy Assessment Assessment Summary Assessment Reveiw of seated HEP with patient and caregiver, suggested use of mirror at home for feedback with postural correction. Pt tolerated manual therapy and exercise well. Physical Therapy Plan Next Visit Focus/Plan Next Note Type Treatment Note Next Visit Plan STM, Cervical strengthening, cervical traction, e-stim
--- NOTE | 2019-01-10 12:34 | PT.OTN ---
Current Diagnoses Stiffness of unspecified joint, not elsewhere classified (01/10/19) Spondylosis without myelopathy or radiculopathy, cervical region (01/10/19) Cervicalgia (01/10/19) Physical Therapy Treatment Note PT-OP-A Visit Information Start: 12/14/18 16:26 Freq: Status: Active Protocol: Document 01/10/19 12:28 GGD (Rec: 01/10/19 12:34 GGD [email or web address]) Out-Patient Physical Therapy Visit Information Visit Information Visit Type Treatment Note Visit Start Time 11:15 Visit Stop Time 11:55 Total Visit Minutes 40 Visit Number 5 Number of DELIVERY CREW WORKER Visits 2 Evaluation Information Evaluation Date 12/14/18 PT-OP-B Current Condition Start: 12/14/18 16:26 Freq: Status: Active Protocol: Document 12/14/18 12:15 DCW (Rec: 12/14/18 16:56 DCW [id number]) Current Condition History of Current Condition Onset Date 3 months Current Complaints cervical pain History of Current Condition Pt is a 68 year old male presenting to skilled PT with complaints of neck pain and stiffnes. Pt was previously treated at this clinic following a CVA two years ago, and was only recently discharged. Pt has ongoing communication difficulty and expressive aphasia, and struggles to describe his pain . Pt's caregive is along for his evaluation, and is able to translate some of what the patient is saying, and is able to answer other questions regarding his current function . Caregiver reports most of the time, pt will deny pain, but then spends a lot of time rubbing his neck and trying to stretch it out on his own. Pt unable to answer if anything causes increased pain, but caregiver notes that it seems to be more of a daily, ongoing thing. Caregiver also notes that he seems to respond well to massage with CBD cream, which they've been trying at home. Prior Treatments and Tests X-ray: 1. Severe degenerative disc disease in cervical spine causing mild central canal stenosis and severe bilateral foraminal stenosis at C5-6, C6-C7 and C7-T1. 2. Bilateral facet arthropathy , most pronounced at T2 and T3 on the left. -per visit note on 10/24/[address] Amin Future Testing and Treatments Planned Based upon his response will consider left-sided axial interventions although given his comorbidities including the previous CVA, aphasia as well as diabetes the risk versus benefit profile are quite prohibitive. Tim Amin D.O.10/24/18 Treatment Goals Patient/Caregiver Goals Reduce pt's cervical neck pain and stiffness Prior Functional Status Baseline Function- ADL's Needs Assist Baseline Function- Mobility Needs Assist Baseline Function- Other Pt has caregiver assistance for generally all activities Personal Factors Other Personal Factors That May Effect CVA, OA, CHF, Depression, DM Therapy/Recovery II, PA, Neuropathy, PE/SOB PT-OP-C Subjective Start: 12/14/18 16:26 Freq: Status: Active Protocol: Document 01/10/19 12:28 GGD (Rec: 01/10/19 12:34 GGD [email or web address]) OP-PT Subjective Patient Comments Patient Comments cadastral surveyor reports pt doing HEP and decrease C/O pain. PT-OP-F Manual Assessment Start: 12/14/18 16:26 Freq: Status: Active Protocol: Document 12/14/18 12:15 DCW (Rec: 12/14/18 16:56 DCW [id number]) Manual Assessments Soft Tissue Assessment Soft Tissue Mobility Assessment Pt has severe tone in right suboccipitals Pt has moderate tone in left suboccipitals, bilateral scalenes, and bilateral upper trap Joint Mobility Assessment Joint Mobility Assessment Significant crepitus with any cervical ROM, especially rotation left to right PT-OP-K Range of Motion Start: 12/14/18 16:26 Freq: Status: Active Protocol: Document 12/14/18 12:15 DCW (Rec: 12/14/18 16:56 DCW [id number]) Cervical Spine Range of Motion Cervical Spine Active Degrees Testing Position Sitting Flexion 80 Extension 70 Rotation Left 58 Rotation Right 56 Lateral Flexion Left 30 Lateral Flexion Right 23 ROM Limitations Soft Tissue Tightness Bony Restriction Muscle Tone PT-OP-L Special Tests Start: 12/14/18 16:26 Freq: Status: Active Protocol: Document 12/14/18 12:15 DCW (Rec: 12/14/18 16:56 DCW [id number]) Special Tests Cervical Spine Special Tests Passive Neck Flexion Test Results Negative Traction Test Results Negative Spurling's Test Test Results Negative Slump Test Results Negative Foraminal Compression Test Results Negative PT-OP-Q Treatments Start: 12/14/18 16:26 Freq: Status: Active Protocol: Document 01/10/19 12:28 GGD (Rec: 01/10/19 12:34 GGD [email or web address]) Therapeutic Exercises Sitting Exercises 4 Sitting Exercise Name scap squeezes Side bilateral Reps/Minutes 10 x 5 sec hold Chin Tucks Reps/Minutes 20x Comments postural cues Cervical rotations Side bilateral Reps/Minutes 2 mins Comments cues for posture Postural correction Side bilateral Resistance tactile cues/mirror Reps/Minutes 30 x 5 Comments education with caregiver 1 Sitting Exercise Name Upper Trap Stretch Side bilateral Reps/Minutes 30 x 3 each Manual Therapy Treatment Soft Tissue Mobilization Suboccipitals Body Location B Suboccipitals Mobilization Type Myofascial Release Sustained Pressure Trigger Point Release Body Position Hooklying Scalene Body Location B Scalene Mobilization Type Sustained Pressure Trigger Point Release Body Position Sitting Upper Trap Body Location B Upper Trap Mobilization Type Strain/Counterstrain Strumming Sustained Pressure Trigger Point Release Body Position Sitting Manual Traction Cervical Details Cervical Traction Body Position Hooklying Reps/Duration 6 min Manual Techniques PROM w/stretching Body Location c-spine Body Position Hooklying Comments rotation, sidebend PT-OP-R Modalities Start: 12/14/18 16:26 Freq: Status: Active Protocol: Document 12/27/18 15:05 EA (Rec: 12/27/18 15:10 EA [id number]) Spinal Traction Traction Treatment Cervical Method Mechanical Static Patient Position Hooklying Force Applied (Pounds) 15 Duration of Treatment (Minutes) 10 Heating Pad Applied No PT-OP-T Assessment and Plan Start: 12/14/18 16:26 Freq: Status: Active Protocol: Document 01/10/19 12:28 GGD (Rec: 01/10/19 12:34 GGD [email or web address]) Physical Therapy Assessment Assessment Summary Assessment Pt had improving with ROM and decrease in pain. Reviewed HEP with caregiver. Physical Therapy Plan Frequency and Duration Frequency of Treatment 2x/Week Duration of Treatment 10 weeks Plan of Care Start Date 12/14/18 Plan of Care End Date 02/22/19 Next Visit Focus/Plan Next Note Type Treatment Note Next Visit Plan STM, Cervical strengthening, cervical traction
--- NOTE | 2019-01-12 15:48 | PT.OTN ---
Current Diagnoses Stiffness of unspecified joint, not elsewhere classified (01/12/19) Spondylosis without myelopathy or radiculopathy, cervical region (01/12/19) Cervicalgia (01/12/19) Physical Therapy Treatment Note PT-OP-A Visit Information Start: 12/14/18 16:26 Freq: Status: Active Protocol: Document 01/12/19 14:22 LRN (Rec: 01/12/19 15:16 LRN [id number]) Out-Patient Physical Therapy Visit Information Visit Information Visit Type Treatment Note Visit Start Time 14:22 Visit Stop Time 15:14 Total Visit Minutes 52 Visit Number 6 Number of DEPARTMENT OF MATHEMATICS CHAIR Visits 0 Evaluation Information Evaluation Date 12/14/18 PT-OP-B Current Condition Start: 12/14/18 16:26 Freq: Status: Active Protocol: Document 12/14/18 12:15 DCW (Rec: 12/14/18 16:56 DCW [id number]) Current Condition History of Current Condition Onset Date 3 months Current Complaints cervical pain History of Current Condition Pt is a 68 year old male presenting to skilled PT with complaints of neck pain and stiffnes. Pt was previously treated at this clinic following a CVA two years ago, and was only recently discharged. Pt has ongoing communication difficulty and expressive aphasia, and struggles to describe his pain . Pt's caregive is along for his evaluation, and is able to translate some of what the patient is saying, and is able to answer other questions regarding his current function . Caregiver reports most of the time, pt will deny pain, but then spends a lot of time rubbing his neck and trying to stretch it out on his own. Pt unable to answer if anything causes increased pain, but caregiver notes that it seems to be more of a daily, ongoing thing. Caregiver also notes that he seems to respond well to massage with CBD cream, which they've been trying at home. Prior Treatments and Tests X-ray: 1. Severe degenerative disc disease in cervical spine causing mild central canal stenosis and severe bilateral foraminal stenosis at C5-6, C6-C7 and C7-T1. 2. Bilateral facet arthropathy , most pronounced at T2 and T3 on the left. -per visit note on 10/24/[address] Amin Future Testing and Treatments Planned Based upon his response will consider left-sided axial interventions although given his comorbidities including the previous CVA, aphasia as well as diabetes the risk versus benefit profile are quite prohibitive. Tim Amin D.O.10/24/18 Treatment Goals Patient/Caregiver Goals Reduce pt's cervical neck pain and stiffness Prior Functional Status Baseline Function- ADL's Needs Assist Baseline Function- Mobility Needs Assist Baseline Function- Other Pt has caregiver assistance for generally all activities Personal Factors Other Personal Factors That May Effect CVA, OA, CHF, Depression, DM Therapy/Recovery II, [place], Neuropathy, PE/SOB PT-OP-C Subjective Start: 12/14/18 16:26 Freq: Status: Active Protocol: Document 01/12/19 14:22 LRN (Rec: 01/12/19 15:16 LRN [id number]) OP-PT Subjective Patient Comments Patient Comments Caregiver states pt does not do ex's at home so she makes him stretch in other ways. Caregiver states the manual traction made his neck feel better. PT-OP-F Manual Assessment Start: 12/14/18 16:26 Freq: Status: Active Protocol: Document 12/14/18 12:15 DCW (Rec: 12/14/18 16:56 DCW [id number]) Manual Assessments Soft Tissue Assessment Soft Tissue Mobility Assessment Pt has severe tone in right suboccipitals Pt has moderate tone in left suboccipitals, bilateral scalenes, and bilateral upper trap Joint Mobility Assessment Joint Mobility Assessment Significant crepitus with any cervical ROM, especially rotation left to right PT-OP-K Range of Motion Start: 12/14/18 16:26 Freq: Status: Active Protocol: Document 12/14/18 12:15 DCW (Rec: 12/14/18 16:56 DCW [id number]) Cervical Spine Range of Motion Cervical Spine Active Degrees Testing Position Sitting Flexion 80 Extension 70 Rotation Left 58 Rotation Right 56 Lateral Flexion Left 30 Lateral Flexion Right 23 ROM Limitations Soft Tissue Tightness Bony Restriction Muscle Tone PT-OP-L Special Tests Start: 12/14/18 16:26 Freq: Status: Active Protocol: Document 12/14/18 12:15 DCW (Rec: 12/14/18 16:56 DCW [id number]) Special Tests Cervical Spine Special Tests Passive Neck Flexion Test Results Negative Traction Test Results Negative Spurling's Test Test Results Negative Slump Test Results Negative Foraminal Compression Test Results Negative PT-OP-Q Treatments Start: 12/14/18 16:26 Freq: Status: Active Protocol: Document 01/12/19 14:22 LRN (Rec: 01/12/19 15:16 LRN [id number]) Therapeutic Exercises Sitting Exercises 4 Sitting Exercise Name Row w/scap squeezes Equipment Used Lev 2 T-Band Reps/Minutes 10 x 3 Cervical rotations Side bilateral Comments cues for ROM & posture Postural correction Sitting Exercise Name Scapular Depression Side right 1 Sitting Exercise Name Upper Trap Stretch Side bilateral Reps/Minutes 30 x 3 each Manual Therapy Treatment Soft Tissue Mobilization Head Body Location L side of head Mobilization Type Myofascial Release Intensity/Depth Superficial Body Position Supine Suboccipitals Body Location B Suboccipitals Mobilization Type Sustained Pressure Body Position Hooklying Upper Trap Body Location B Upper Trap Mobilization Type Strumming Sustained Pressure Body Position Supine Manual Traction Cervical Details Cervical Traction Body Position Hooklying Reps/Duration 6 min Taping K-tape Body Location R UT Treatment Focus Relaxation of R UT Type of Tape K-tape Skin Inspection Good Comments I/S for proper removal and signs of allergic reaction discussed with pt and caregiver. Requested discussion given to spouse. Self-Care/Home Management Treatment Education Patient Education Home Exercise Program Safety Other Education I/S for safe & proper removal, signs of allergic reaction, and removal if signs of allergic reaction; this was discussed with pt and caregiver. Requested discussion be given to spouse on (2nd review) safe & proper removal, signs of allergic reaction, and removal upon signs of allergic reaction. Activities Self-Care/Home Management Activities I/S caregiver pt can work on R shoulder depression with scapular retraction (row exercise). PT-OP-R Modalities Start: 12/14/18 16:26 Freq: Status: Active Protocol: Document 12/27/18 15:05 EA (Rec: 12/27/18 15:10 EA [id number]) Spinal Traction Traction Treatment Cervical Method Mechanical Static Patient Position Hooklying Force Applied (Pounds) 15 Duration of Treatment (Minutes) 10 Heating Pad Applied No PT-OP-T Assessment and Plan Start: 12/14/18 16:26 Freq: Status: Active Protocol: Document 01/12/19 14:22 LRN (Rec: 01/12/19 15:16 LRN [id number]) Physical Therapy Assessment Goals 4 STG Duration MET 3 STG Duration MET 2 Impairment Limited cervical rotation and lateral flexion Correction Goal (LTG) Pt to demonstrate bilateral cervical rotation to 70? and bilateral cervical lateral flexion to 40? LTG Duration 02/13/19 1 Impairment Pt does not have an appropriate home exercise program Short Term Goal (STG) Pt to be compliant with an appropriate HEP with assistance from his family and caregiver STG Duration 01/13/19 Assessment Summary Assessment Pt has fairly good control of R UE upon verbal cuing, but demonstrates Flexor pattern of shoulder hike with shoulder ext and is only able to perform shoulder depression with extensive physical and verbal cuing. Pt caregiver appears to have a good understanding of K-tape precautions and proper removal method and will relay this information to pt's spouse. Pt I/S to not remove on own as if it was a bandaid and appears to understand. Pt did not appear to have neck pain and had good tolerance to MFR of skin on R side of head. Physical Therapy Plan Frequency and Duration Frequency of Treatment 2x/Week Duration of Treatment 10 weeks Plan of Care Start Date 12/14/18 Plan of Care End Date 02/22/19 Next Visit Focus/Plan Next Note Type Treatment Note Next Visit Plan Assess response to K-tape; if good, try taping for scapular depression on R side to improve posture. Continue: STM, Cervical strengthening, cervical traction to progress towards goal of improved c. rom. Issue HEP as progressed.
--- NOTE | 2019-01-17 12:47 | PT.OTN ---
Current Diagnoses Stiffness of unspecified joint, not elsewhere classified (01/17/19) Spondylosis without myelopathy or radiculopathy, cervical region (01/17/19) Cervicalgia (01/17/19) Physical Therapy Treatment Note PT-OP-A Visit Information Start: 12/14/18 16:26 Freq: Status: Active Protocol: Document 01/17/19 12:00 DCW (Rec: 01/17/19 12:47 DCW [id number]) Out-Patient Physical Therapy Visit Information Visit Information Visit Type Treatment Note Visit Start Time 12:00 Visit Stop Time 12:45 Total Visit Minutes 45 Visit Number 7 Number of SUPERINTENDENT SYSTEM OPERATION Visits 0 Evaluation Information Evaluation Date 12/14/18 PT-OP-B Current Condition Start: 12/14/18 16:26 Freq: Status: Active Protocol: Document 12/14/18 12:15 DCW (Rec: 12/14/18 16:56 DCW [id number]) Current Condition History of Current Condition Onset Date 3 months Current Complaints cervical pain History of Current Condition Pt is a 68 year old male presenting to skilled PT with complaints of neck pain and stiffnes. Pt was previously treated at this clinic following a CVA two years ago, and was only recently discharged. Pt has ongoing communication difficulty and expressive aphasia, and struggles to describe his pain . Pt's caregive is along for his evaluation, and is able to translate some of what the patient is saying, and is able to answer other questions regarding his current function . Caregiver reports most of the time, pt will deny pain, but then spends a lot of time rubbing his neck and trying to stretch it out on his own. Pt unable to answer if anything causes increased pain, but caregiver notes that it seems to be more of a daily, ongoing thing. Caregiver also notes that he seems to respond well to massage with CBD cream, which they've been trying at home. Prior Treatments and Tests X-ray: 1. Severe degenerative disc disease in cervical spine causing mild central canal stenosis and severe bilateral foraminal stenosis at C5-6, C6-C7 and C7-T1. 2. Bilateral facet arthropathy , most pronounced at T2 and T3 on the left. -per visit note on 10/24/[address] Amin Future Testing and Treatments Planned Based upon his response will consider left-sided axial interventions although given his comorbidities including the previous CVA, aphasia as well as diabetes the risk versus benefit profile are quite prohibitive. Tim Amin D.O.10/24/18 Treatment Goals Patient/Caregiver Goals Reduce pt's cervical neck pain and stiffness Prior Functional Status Baseline Function- ADL's Needs Assist Baseline Function- Mobility Needs Assist Baseline Function- Other Pt has caregiver assistance for generally all activities Personal Factors Other Personal Factors That May Effect CVA, OA, CHF, Depression, DM Therapy/Recovery II, [place], Neuropathy, PE/SOB PT-OP-C Subjective Start: 12/14/18 16:26 Freq: Status: Active Protocol: Document 01/17/19 12:00 DCW (Rec: 01/17/19 12:47 DCW [id number]) OP-PT Subjective Patient Comments Patient Comments Pt's caregiver reports pt is not very compliant with his HEP, has difficulty getting him to do anything. Also reports that he seems to be in fairly constant pain, and has not been happy with the constant changes in therapist, would like more consistency if possible. PT-OP-F Manual Assessment Start: 12/14/18 16:26 Freq: Status: Active Protocol: Document 12/14/18 12:15 DCW (Rec: 12/14/18 16:56 DCW [id number]) Manual Assessments Soft Tissue Assessment Soft Tissue Mobility Assessment Pt has severe tone in right suboccipitals Pt has moderate tone in left suboccipitals, bilateral scalenes, and bilateral upper trap Joint Mobility Assessment Joint Mobility Assessment Significant crepitus with any cervical ROM, especially rotation left to right PT-OP-K Range of Motion Start: 12/14/18 16:26 Freq: Status: Active Protocol: Document 12/14/18 12:15 DCW (Rec: 12/14/18 16:56 DCW [id number]) Cervical Spine Range of Motion Cervical Spine Active Degrees Testing Position Sitting Flexion 80 Extension 70 Rotation Left 58 Rotation Right 56 Lateral Flexion Left 30 Lateral Flexion Right 23 ROM Limitations Soft Tissue Tightness Bony Restriction Muscle Tone PT-OP-L Special Tests Start: 12/14/18 16:26 Freq: Status: Active Protocol: Document 12/14/18 12:15 DCW (Rec: 12/14/18 16:56 DCW [id number]) Special Tests Cervical Spine Special Tests Passive Neck Flexion Test Results Negative Traction Test Results Negative Spurling's Test Test Results Negative Slump Test Results Negative Foraminal Compression Test Results Negative PT-OP-Q Treatments Start: 12/14/18 16:26 Freq: Status: Active Protocol: Document 01/17/19 12:00 DCW (Rec: 01/17/19 12:47 DCW [id number]) Manual Therapy Treatment Soft Tissue Mobilization Suboccipitals Body Location B Suboccipitals Mobilization Type Sustained Pressure Body Position Hooklying Scalene Body Location B Scalene Mobilization Type Sustained Pressure Trigger Point Release Body Position Sitting Upper Trap Body Location B Upper Trap Mobilization Type Strumming Sustained Pressure Body Position Supine Manual Traction Cervical Details Cervical Traction Body Position Hooklying Reps/Duration 6 min Manual Techniques PROM w/stretching Body Location c-spine Body Position Hooklying Comments rotation, sidebend PT-OP-R Modalities Start: 12/14/18 16:26 Freq: Status: Active Protocol: Document 12/27/18 15:05 EA (Rec: 12/27/18 15:10 EA [id number]) Spinal Traction Traction Treatment Cervical Method Mechanical Static Patient Position Hooklying Force Applied (Pounds) 15 Duration of Treatment (Minutes) 10 Heating Pad Applied No PT-OP-T Assessment and Plan Start: 12/14/18 16:26 Freq: Status: Active Protocol: Document 01/17/19 12:00 DCW (Rec: 01/17/19 12:47 DCW [id number]) Physical Therapy Assessment Goals 4 STG Duration MET 3 STG Duration MET 2 Impairment Limited cervical rotation and lateral flexion Geothermal System Installer Goal (LTG) Pt to demonstrate bilateral cervical rotation to 70? and bilateral cervical lateral flexion to 40? LTG Duration 02/13/19 1 Impairment Pt does not have an appropriate home exercise program Short Term Goal (STG) Pt to be compliant with an appropriate HEP with assistance from his family and caregiver STG Duration 01/13/19 Assessment Summary Assessment Pt continues to show improved ROM, notes relief following today's appointment. Pt was unable to leave K-tape on, removed it himself. Physical Therapy Plan Frequency and Duration Frequency of Treatment 2x/Week Duration of Treatment 10 weeks Plan of Care Start Date 12/14/18 Plan of Care End Date 02/22/19 Next Visit Focus/Plan Next Note Type Treatment Note Next Visit Plan Continue: STM, Cervical strengthening, cervical traction to progress towards goal of improved c. rom. Issue HEP as progressed.
--- NOTE | 2019-01-19 18:41 | PT.OTN ---
Current Diagnoses Stiffness of unspecified joint, not elsewhere classified (01/19/19) Spondylosis without myelopathy or radiculopathy, cervical region (01/19/19) Cervicalgia (01/19/19) Physical Therapy Treatment Note PT-OP-A Visit Information Start: 12/14/18 16:26 Freq: Status: Active Protocol: Document 01/19/19 18:25 AMH (Rec: 01/19/19 18:41 AMH [email or web address]) Out-Patient Physical Therapy Visit Information Visit Information Visit Type Treatment Note Visit Start Time 11:15 Visit Stop Time 12:00 Total Visit Minutes 45 Visit Number 8 Number of HEAT REGULATOR Visits 0 Evaluation Information Evaluation Date 12/14/18 PT-OP-B Current Condition Start: 12/14/18 16:26 Freq: Status: Active Protocol: Document 12/14/18 12:15 DCW (Rec: 12/14/18 16:56 DCW [id number]) Current Condition History of Current Condition Onset Date 3 months Current Complaints cervical pain History of Current Condition Pt is a 68 year old male presenting to skilled PT with complaints of neck pain and stiffnes. Pt was previously treated at this clinic following a CVA two years ago, and was only recently discharged. Pt has ongoing communication difficulty and expressive aphasia, and struggles to describe his pain . Pt's caregive is along for his evaluation, and is able to translate some of what the patient is saying, and is able to answer other questions regarding his current function . Caregiver reports most of the time, pt will deny pain, but then spends a lot of time rubbing his neck and trying to stretch it out on his own. Pt unable to answer if anything causes increased pain, but caregiver notes that it seems to be more of a daily, ongoing thing. Caregiver also notes that he seems to respond well to massage with CBD cream, which they've been trying at home. Prior Treatments and Tests X-ray: 1. Severe degenerative disc disease in cervical spine causing mild central canal stenosis and severe bilateral foraminal stenosis at C5-6, C6-C7 and C7-T1. 2. Bilateral facet arthropathy , most pronounced at T2 and T3 on the left. -per visit note on 10/24/[address] Amin Future Testing and Treatments Planned Based upon his response will consider left-sided axial interventions although given his comorbidities including the previous CVA, aphasia as well as diabetes the risk versus benefit profile are quite prohibitive. Tim Amin D.O.10/24/18 Treatment Goals Patient/Caregiver Goals Reduce pt's cervical neck pain and stiffness Prior Functional Status Baseline Function- ADL's Needs Assist Baseline Function- Mobility Needs Assist Baseline Function- Other Pt has caregiver assistance for generally all activities Personal Factors Other Personal Factors That May Effect CVA, OA, CHF, Depression, DM Therapy/Recovery II, [place], Neuropathy, PE/SOB PT-OP-C Subjective Start: 12/14/18 16:26 Freq: Status: Active Protocol: Document 01/19/19 18:25 AMH (Rec: 01/19/19 18:41 AMH [email or web address]) OP-PT Subjective Patient Comments Patient Comments Pt's is present for treatment today. Jackie has not been getting in his exercises at home. His would like the caregiver to help as he needs assistance for his exercises. PT-OP-F Manual Assessment Start: 12/14/18 16:26 Freq: Status: Active Protocol: Document 12/14/18 12:15 DCW (Rec: 12/14/18 16:56 DCW [id number]) Manual Assessments Soft Tissue Assessment Soft Tissue Mobility Assessment Pt has severe tone in right suboccipitals Pt has moderate tone in left suboccipitals, bilateral scalenes, and bilateral upper trap Joint Mobility Assessment Joint Mobility Assessment Significant crepitus with any cervical ROM, especially rotation left to right PT-OP-K Range of Motion Start: 12/14/18 16:26 Freq: Status: Active Protocol: Document 12/14/18 12:15 DCW (Rec: 12/14/18 16:56 DCW [id number]) Cervical Spine Range of Motion Cervical Spine Active Degrees Testing Position Sitting Flexion 80 Extension 70 Rotation Left 58 Rotation Right 56 Lateral Flexion Left 30 Lateral Flexion Right 23 ROM Limitations Soft Tissue Tightness Bony Restriction Muscle Tone PT-OP-L Special Tests Start: 12/14/18 16:26 Freq: Status: Active Protocol: Document 12/14/18 12:15 DCW (Rec: 12/14/18 16:56 DCW [id number]) Special Tests Cervical Spine Special Tests Passive Neck Flexion Test Results Negative Traction Test Results Negative Spurling's Test Test Results Negative Slump Test Results Negative Foraminal Compression Test Results Negative PT-OP-Q Treatments Start: 12/14/18 16:26 Freq: Status: Active Protocol: Document 01/19/19 18:25 AMH (Rec: 01/19/19 18:41 AMH [email or web address]) Therapeutic Exercises Sitting Exercises 4 Sitting Exercise Name Row w/scap squeezes Equipment Used Lev 2 T-Band Reps/Minutes 10 x 3 Chin Tucks Reps/Minutes 20x Comments postural cues Cervical rotations Side bilateral Comments cues for ROM & posture 2 Sitting Exercise Name sitting shoulder pully exercise Reps/Minutes 4 min 1 Sitting Exercise Name Upper Trap Stretch Side bilateral Reps/Minutes 30 x 3 each Standing Exercises 4 Standing Exercise Name standing with support at counter shoulder Extension B Reps/Minutes x 10 reps 3 Standing Exercise Name shoulder IR Reps/Minutes x 10 reps 2 Standing Exercise Name standing shoulder abduction Reps/Minutes x 10 reps Manual Therapy Treatment Soft Tissue Mobilization Suboccipitals Body Location B Suboccipitals Mobilization Type Sustained Pressure Body Position Hooklying Scalene Body Location B Scalene Mobilization Type Sustained Pressure Trigger Point Release Body Position Sitting Upper Trap Body Location B Upper Trap Mobilization Type Strumming Sustained Pressure Body Position Supine Manual Techniques PROM w/stretching Body Location c-spine Body Position Hooklying Comments rotation, sidebend PT-OP-R Modalities Start: 12/14/18 16:26 Freq: Status: Active Protocol: Document 12/27/18 15:05 EA (Rec: 12/27/18 15:10 EA [id number]) Spinal Traction Traction Treatment Cervical Method Mechanical Static Patient Position Hooklying Force Applied (Pounds) 15 Duration of Treatment (Minutes) 10 Heating Pad Applied No PT-OP-T Assessment and Plan Start: 12/14/18 16:26 Freq: Status: Active Protocol: Document 01/19/19 18:25 AMH (Rec: 01/19/19 18:41 AMH [email or web address]) Physical Therapy Assessment Assessment Summary Assessment able to stand with table elevated to counter top for AROM of the shoulders. Good tolerance for scapula rows and shoulder odalis Physical Therapy Plan Frequency and Duration Frequency of Treatment 2x/Week Duration of Treatment 10 weeks Plan of Care Start Date 12/14/18 Plan of Care End Date 02/22/19 Therapeutic Interventions Therapeutic Interventions Aquatic Therapy Home Exercise Program Joint Mobilizations Manual Therapy Patient/Caregiver Education Self-Care/Home Management Soft Tissue Mobilization Therapeutic Activities Therapeutic Exercises Modalities Cold Pack/Ice Massage Electric Stimulation Hot Packs Traction- Mechanical Next Visit Focus/Plan Next Note Type Treatment Note Next Visit Plan Continue: STM, Cervical strengthening, cervical traction to progress towards goal of improved c. rom. Issue HEP as progressed.
--- NOTE | 2019-01-27 16:48 | PT.OTN ---
Current Diagnoses Stiffness of unspecified joint, not elsewhere classified (01/27/19) Spondylosis without myelopathy or radiculopathy, cervical region (01/27/19) Cervicalgia (01/27/19) Physical Therapy Treatment Note PT-OP-A Visit Information Start: 12/14/18 16:26 Freq: Status: Active Protocol: Document 01/27/19 13:00 HH (Rec: 01/27/19 16:48 HH [email or web address]) Out-Patient Physical Therapy Visit Information Visit Information Visit Type Treatment Note Visit Start Time 13:00 Visit Stop Time 13:45 Total Visit Minutes 45 Visit Number 9 Number of SURVEY FIELD TECHNICIAN Visits 0 PT-OP-B Current Condition Start: 12/14/18 16:26 Freq: Status: Active Protocol: Document 12/14/18 12:15 DCW (Rec: 12/14/18 16:56 DCW [id number]) Current Condition History of Current Condition Onset Date 3 months Current Complaints cervical pain History of Current Condition Pt is a 68 year old male presenting to skilled PT with complaints of neck pain and stiffnes. Pt was previously treated at this clinic following a CVA two years ago, and was only recently discharged. Pt has ongoing communication difficulty and expressive aphasia, and struggles to describe his pain . Pt's caregive is along for his evaluation, and is able to translate some of what the patient is saying, and is able to answer other questions regarding his current function . Caregiver reports most of the time, pt will deny pain, but then spends a lot of time rubbing his neck and trying to stretch it out on his own. Pt unable to answer if anything causes increased pain, but caregiver notes that it seems to be more of a daily, ongoing thing. Caregiver also notes that he seems to respond well to massage with CBD cream, which they've been trying at home. Prior Treatments and Tests X-ray: 1. Severe degenerative disc disease in cervical spine causing mild central canal stenosis and severe bilateral foraminal stenosis at C5-6, C6-C7 and C7-T1. 2. Bilateral facet arthropathy , most pronounced at T2 and T3 on the left. -per visit note on 10/24/[address] Amin Future Testing and Treatments Planned Based upon his response will consider left-sided axial interventions although given his comorbidities including the previous CVA, aphasia as well as diabetes the risk versus benefit profile are quite prohibitive. Tim Amin D.O.10/24/18 Treatment Goals Patient/Caregiver Goals Reduce pt's cervical neck pain and stiffness Prior Functional Status Baseline Function- ADL's Needs Assist Baseline Function- Mobility Needs Assist Baseline Function- Other Pt has caregiver assistance for generally all activities Personal Factors Other Personal Factors That May Effect CVA, OA, CHF, Depression, DM Therapy/Recovery II, [place], Neuropathy, PE/SOB PT-OP-C Subjective Start: 12/14/18 16:26 Freq: Status: Active Protocol: Document 01/27/19 13:00 HH (Rec: 01/27/19 16:48 HH [email or web address]) OP-PT Subjective Patient Comments Patient Comments Pt's is present for treatment today. Jackie has been getting in his exercises at home but not consistent. PT-OP-F Manual Assessment Start: 12/14/18 16:26 Freq: Status: Active Protocol: Document 12/14/18 12:15 DCW (Rec: 12/14/18 16:56 DCW [id number]) Manual Assessments Soft Tissue Assessment Soft Tissue Mobility Assessment Pt has severe tone in right suboccipitals Pt has moderate tone in left suboccipitals, bilateral scalenes, and bilateral upper trap Joint Mobility Assessment Joint Mobility Assessment Significant crepitus with any cervical ROM, especially rotation left to right PT-OP-K Range of Motion Start: 12/14/18 16:26 Freq: Status: Active Protocol: Document 12/14/18 12:15 DCW (Rec: 12/14/18 16:56 DCW [id number]) Cervical Spine Range of Motion Cervical Spine Active Degrees Testing Position Sitting Flexion 80 Extension 70 Rotation Left 58 Rotation Right 56 Lateral Flexion Left 30 Lateral Flexion Right 23 ROM Limitations Soft Tissue Tightness Bony Restriction Muscle Tone PT-OP-L Special Tests Start: 12/14/18 16:26 Freq: Status: Active Protocol: Document 12/14/18 12:15 DCW (Rec: 12/14/18 16:56 DCW [id number]) Special Tests Cervical Spine Special Tests Passive Neck Flexion Test Results Negative Traction Test Results Negative Spurling's Test Test Results Negative Slump Test Results Negative Foraminal Compression Test Results Negative PT-OP-Q Treatments Start: 12/14/18 16:26 Freq: Status: Active Protocol: Document 01/27/19 13:00 (Rec: 01/27/19 16:48 [email or web address]) Cardio Equipment Upper Body Ergometer (UBE) Duration (Minutes) 5 RPM 80 Therapeutic Exercises Sitting Exercises shoulde flexion AAROM Equipment Used wall sling Reps/Minutes 5 mins Comments end range flexion and abduction Cervical rotations Side bilateral Comments cues for ROM & posture Standing Exercises hurdles Side bilateral Reps/Minutes 5 rounds Comments step to and step over without support squat Equipment Used grab bar Reps/Minutes 10 x2 4 Standing Exercise Name standing with support at counter shoulder Extension B Reps/Minutes x 10 reps 2 Standing Exercise Name standing shoulder abduction Reps/Minutes x 10 reps 1 Standing Exercise Name scap retraction Equipment Used Lvl 2 band Reps/Minutes 10 x 2 Manual Therapy Treatment Soft Tissue Mobilization Suboccipitals Body Location B Suboccipitals Mobilization Type Sustained Pressure Body Position Hooklying Scalene Body Location B Scalene Mobilization Type Sustained Pressure Trigger Point Release Body Position Sitting Upper Trap Body Location B Upper Trap Mobilization Type Strumming Sustained Pressure Body Position Supine Manual Traction Cervical Details Cervical Traction Body Position Hooklying Reps/Duration 6 min PT-OP-R Modalities Start: 12/14/18 16:26 Freq: Status: Active Protocol: Document 12/27/18 15:05 EA (Rec: 12/27/18 15:10 EA [id number]) Spinal Traction Traction Treatment Cervical Method Mechanical Static Patient Position Hooklying Force Applied (Pounds) 15 Duration of Treatment (Minutes) 10 Heating Pad Applied No PT-OP-T Assessment and Plan Start: 12/14/18 16:26 Freq: Status: Active Protocol: Document 01/27/19 13:00 (Rec: 01/27/19 16:48 [email or web address]) Physical Therapy Assessment Assessment Summary Assessment Pt did not c/o much of discomfort on his neck pain today. Focused on R shoulder mobility, balance and cervical AROM Physical Therapy Plan Next Visit Focus/Plan Next Note Type Treatment Note Next Visit Plan Continue: STM, Cervical strengthening, cervical traction to progress towards goal of improved c. rom. Issue HEP as progressed.
--- NOTE | 2019-02-01 12:45 | PT.OTN ---
Current Diagnoses Stiffness of unspecified joint, not elsewhere classified (02/01/19) Spondylosis without myelopathy or radiculopathy, cervical region (02/01/19) Cervicalgia (02/01/19) Physical Therapy Treatment Note PT-OP-A Visit Information Start: 12/14/18 16:26 Freq: Status: Active Protocol: Document 02/01/19 12:00 DCW (Rec: 02/01/19 12:44 DCW [id number]) Out-Patient Physical Therapy Visit Information Visit Information Visit Type Treatment Note Visit Start Time 12:00 Visit Stop Time 12:40 Total Visit Minutes 40 Visit Number 10 Number of RESAW MACHINE OPERATOR Visits 0 Evaluation Information Evaluation Date 12/14/18 PT-OP-B Current Condition Start: 12/14/18 16:26 Freq: Status: Active Protocol: Document 12/14/18 12:15 DCW (Rec: 12/14/18 16:56 DCW [id number]) Current Condition History of Current Condition Onset Date 3 months Current Complaints cervical pain History of Current Condition Pt is a 68 year old male presenting to skilled PT with complaints of neck pain and stiffnes. Pt was previously treated at this clinic following a CVA two years ago, and was only recently discharged. Pt has ongoing communication difficulty and expressive aphasia, and struggles to describe his pain . Pt's caregive is along for his evaluation, and is able to translate some of what the patient is saying, and is able to answer other questions regarding his current function . Caregiver reports most of the time, pt will deny pain, but then spends a lot of time rubbing his neck and trying to stretch it out on his own. Pt unable to answer if anything causes increased pain, but caregiver notes that it seems to be more of a daily, ongoing thing. Caregiver also notes that he seems to respond well to massage with CBD cream, which they've been trying at home. Prior Treatments and Tests X-ray: 1. Severe degenerative disc disease in cervical spine causing mild central canal stenosis and severe bilateral foraminal stenosis at C5-6, C6-C7 and C7-T1. 2. Bilateral facet arthropathy , most pronounced at T2 and T3 on the left. -per visit note on 10/24/[address] Amin Future Testing and Treatments Planned Based upon his response will consider left-sided axial interventions although given his comorbidities including the previous CVA, aphasia as well as diabetes the risk versus benefit profile are quite prohibitive. Tmi Amin D.O.10/24/18 Treatment Goals Patient/Caregiver Goals Reduce pt's cervical neck pain and stiffness Prior Functional Status Baseline Function- ADL's Needs Assist Baseline Function- Mobility Needs Assist Baseline Function- Other Pt has caregiver assistance for generally all activities Personal Factors Other Personal Factors That May Effect CVA, OA, CHF, Depression, DM Therapy/Recovery II, AR, Neuropathy, PE/SOB PT-OP-C Subjective Start: 12/14/18 16:26 Freq: Status: Active Protocol: Document 02/01/19 12:00 DCW (Rec: 02/01/19 12:44 DCW [id number]) OP-PT Subjective Patient Comments Patient Comments Pt reports there has been seemingly no change in pt's condition, and notes that it is impossible to get him to do anything at home. She also states that it is very difficulty to get him to come to therapy, and he throws a fit when he has to come in. She feels it would be best to stop therapy at this time. PT-OP-F Manual Assessment Start: 12/14/18 16:26 Freq: Status: Active Protocol: Document 02/01/19 12:00 DCW (Rec: 02/01/19 12:45 DCW [id number]) Manual Assessments Soft Tissue Assessment Soft Tissue Mobility Assessment Pt has moderate tone in bilateral suboccipitals, bilateral scalenes, and bilateral upper trap Joint Mobility Assessment Joint Mobility Assessment No noted crepitus with cervical ROM PT-OP-K Range of Motion Start: 12/14/18 16:26 Freq: Status: Active Protocol: Document 02/01/19 12:00 DCW (Rec: 02/01/19 12:45 DCW [id number]) Cervical Spine Range of Motion Cervical Spine Active Degrees Testing Position Sitting Flexion 76 Extension 64 Rotation Left 56 Rotation Right 62 Lateral Flexion Left 30 Lateral Flexion Right 26 ROM Limitations Soft Tissue Tightness Bony Restriction Muscle Tone PT-OP-L Special Tests Start: 12/14/18 16:26 Freq: Status: Active Protocol: Document 12/14/18 12:15 DCW (Rec: 12/14/18 16:56 DCW [id number]) Special Tests Cervical Spine Special Tests Passive Neck Flexion Test Results Negative Traction Test Results Negative Spurling's Test Test Results Negative Slump Test Results Negative Foraminal Compression Test Results Negative PT-OP-Q Treatments Start: 12/14/18 16:26 Freq: Status: Active Protocol: Document 02/01/19 12:00 DCW (Rec: 02/01/19 12:44 DCW [id number]) Therapeutic Exercises Sitting Exercises Cervical rotations Side bilateral Comments cues for ROM & posture 1 Sitting Exercise Name Upper Trap Stretch Side bilateral Reps/Minutes 30 x 3 each Manual Therapy Treatment Soft Tissue Mobilization Suboccipitals Body Location B Suboccipitals Mobilization Type Sustained Pressure Body Position Hooklying Scalene Body Location B Scalene Mobilization Type Sustained Pressure Trigger Point Release Body Position Sitting Upper Trap Body Location B Upper Trap Mobilization Type Strumming Sustained Pressure Body Position Supine Manual Traction Cervical Details Cervical Traction Body Position Hooklying Reps/Duration 6 min Manual Techniques PROM w/stretching Body Location c-spine Body Position Hooklying Comments rotation, sidebend PT-OP-R Modalities Start: 12/14/18 16:26 Freq: Status: Active Protocol: Document 12/27/18 15:05 EA (Rec: 12/27/18 15:10 EA [id number]) Spinal Traction Traction Treatment Cervical Method Mechanical Static Patient Position Hooklying Force Applied (Pounds) 15 Duration of Treatment (Minutes) 10 Heating Pad Applied No PT-OP-T Assessment and Plan Start: 12/14/18 16:26 Freq: Status: Active Protocol: Document 02/01/19 12:00 DCW (Rec: 02/01/19 12:44 [facility] [id number]) Physical Therapy Assessment Goals 2 Impairment Limited cervical rotation and lateral flexion Skilled Nursing Goal (LTG) Pt to demonstrate bilateral cervical rotation to 70? and bilateral cervical lateral flexion to 40? LTG Duration 02/13/19 1 Impairment Pt does not have an appropriate home exercise program Short Term Goal (STG) Pt to be compliant with an appropriate HEP with assistance from his family and caregiver STG Duration 01/13/19 Progress Towards Goals Progress Towards Goals Slow Progress due to Noncompliance Assessment Summary Assessment Pt's caregiver pessimistic about pt progress due to pt's refusal to perform any activity at home, as well as the difficulty she has getting him to attend his PT sessions . Pt's objective measures are largely the same as his evaluation, although there is noticeably less crepitus during cervical ROM. Pt will be discharged from skilled therapy at this time. Physical Therapy Plan Frequency and Duration Frequency of Treatment 2x/Week Duration of Treatment 10 weeks Plan of Care Start Date 12/14/18 Plan of Care End Date 02/22/19 Therapeutic Interventions Therapeutic Interventions Aquatic Therapy Home Exercise Program Joint Mobilizations Manual Therapy Patient/Caregiver Education Self-Care/Home Management Soft Tissue Mobilization Therapeutic Activities Therapeutic Exercises Modalities Cold Pack/Ice Massage Electric Stimulation Hot Packs Traction- Mechanical Discharge Physical Therapy Discharge Reasons Patient Request Next Visit Focus/Plan Next Note Type Discharge Summary
== END 2019-02-01 14:57 | disposition home or self-care (01) ==
LOC: PHYS 12:00
PROVIDERS: PCP Family Medicine; Visit Provider Physical Medicine & Rehabilitation
DX: M47.812 Spondylosis without myelopathy or radiculopathy, cervical region (principal); M25.60 Stiffness of unspecified joint, not elsewhere classified; M54.2 Cervicalgia
CPT/HCPCS: 97012; 97110; 97140; 97163

== ENCOUNTER 2019-02-06 12:30 | Outpatient (RCR) | payer MEDICARE, OTHER, MEDICAID, SELFPAY ==
--- NOTE | 2017-10-26 07:39 | ST.OPTN ---
On October 26, 2017 our therapy services consisting of Speech, Occupational, and Physical therapy transitioned from [employer] electronic documentation system to a new [employer] electronic system. All documentation prior to October 26 can be found under [employer] saved data. From October 26 forward, all medical record documentation will be in [employer] 6[employer]1.
--- NOTE | 2017-10-26 07:41 | OT.OPTN ---
On October 26, 2017 our therapy services consisting of Speech, Occupational, and Physical therapy transitioned from [employer] electronic documentation system to a new [employer] electronic system. All documentation prior to October 26 can be found under [employer] saved data. From October 26 forward, all medical record documentation will be in [employer] 6.1.
--- NOTE | 2017-10-27 08:48 | ST.OPTN ---
On October 26, 2017 our therapy services consisting of Speech, Occupational, and Physical therapy transitioned from [employer] electronic documentation system to a new [employer] electronic system. All documentation prior to October 26 can be found under [employer] saved data. From October 26 forward, all medical record documentation will be in [employer] 6.1.
--- NOTE | 2017-11-10 14:23 | ST.OPRE ---
Visit Care Team Role Provider Type Rebecca Bae DO Attending Provider Physician Family Provider Primary Care Provider Specialty: Family Practice Address: [address] [place] [address], [id number] Email: [email or web address] Speech-Language Pathology Evaluation/Summary AERODYNAMICS TEACHER Treatment Note Start: 10/27/17 17:38 Freq: Status: Active Protocol: Activity Type Activity Date Activity User E-Sign Co-Sign Detail Recorded Client Recorded Date Recorded By Document 11/10/17 09:28 FELIX [email or web address] 11/10/17 10:30 FELIX 11/10/17 09:28 Speech Pathology Treatment Note [Session Time] -Visit Start Time 09:30 -Visit Stop Time 10:45 -Total Visit Minutes 45 [Visit Information] -Visit Number 04/06 -Plan of Care Dates 10/05/17 - 02/12 -Insurance Information [employer] [Setting] -Treatment Setting Outpatient Care [Visit Type] -Note Type Re-Evaluation [Next Note Type] -Next Note Type Treatment Note [General Information] -General Information 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 Left craniotomy with extraction of the clot performed at [facility]. Pt was dc/d to [facility] and returned home in November 2016. Moderate- Severe fluent aphasia. [Subjective] -Others Present Acid Blower -Observations/Patient Presentation The pt was accompanied by his , who was present throughout the session and reported the pt fell yesterday morning in the bathroom. He awoke before his did and went to the bathroom to take a bath. Either during or after getting out of the tub, he fell. Their son heard the fall and came to assist him. The pt suffered an abrasion and bruise on his back at area of the right shoulder blade. No other injuries were noted and the pt reportedly did not hit his head. His has noticed no changes in communication, behavior, or physical abilities resulting from the fall, and none were observed by this clinician today. The pt has no new complaints. His expressed great concern that she did not hear him moving about the house. The couple does have a audio/ video monitoring system in place between the living room and the bedroom, but this was not effective in awaking the pt's . This AERODYNAMICS TEACHER informed the pt 's PT and OT clinicians. -Chief Complaint(s) Speech Language -Rehab Expectation/Goals: Patient Increase Goals functional expressive & receptive speech and language skills -Rehab Expectation/Goals: Parent/ Caregiver goal: Guardian/Acid Blower Goals Train to HEP tasks and establish consistent HEP schedule -Parent/Caretake Knowledge/Awareness Good of AERODYNAMICS TEACHER Role in Treatment -Patient/Caregiver Compliance with Good Home Exercise Program -Comment Caregiver understanding is improving [Objective] -Short Term Goals 1. Imitate CV syllables/words with max cues to increase real word production. 2. Copy functional words related to person/place /thing with 80% accuracy and legibility. -- Goal met 10/31 2. NEW GOAL: Complete fill- pp-cas-xdvre writing tasks to increase independence of written functional word production. 3. Given pictures and written presentation, point to words of familiar items with 75% accuracy and minimal verbal cues to improve reading skills . 4. Match words to pictures of functional objects with 80 % accuracy and minimal verbal cues to improve reading skills . - Goal Met New Goal: Point to pictures to complete phrases presented orally to increase auditory comprehension skills. -Penitentiary Goals 1. Given oral presentation, point to words of functional objects with 75 % accuracy and mod v/v cues to increase pt's ability to read in order to facilitate ability to communicate wants and needs . 2. Produce/ Approximate simple functional words (e.g., names, greetings) to WFL with mod v/ v cues to increase real word production and pt's ability to communicate wants and needs . 3. Write simple functional words within functional accuracy to increase his ability to express his wants and needs . -Treatment Activities Consulted w/ pt / RE goals of tx. They were in agreement. Pt's provided list of functional words for written and oral expression targets. (cup, game, home, Mom, go, family member names) Pt copied 2-4 letter functional words x4 each w / 100% accuracy and legibility . Given direct model and verbal cues, pt produced /g/, /o/, /m/; /go/ godinez, and gum . Attempts to produce game resulted in gum. Pt able to alternate between 2 phonemes with direct cue fading to independent production. Education provided RE cuing in direct home practice and in functional/ spontaneous communication opportunities. [Assessment] -Patient Response to Treatment Excellent -Rehab Potential Good -Impairments Identified Aphasia Expressive Language Oral Motor Reading Comprehension Written Expression -Progress Towards Goals Good Progress Slow Progress -Assessment of Overall Progress Improving -Assessment of Improvement Over course of treatment, the pt has demonstrated increasing consistency with oral motor skills and phoneme production and increasing ability to follow oral commands for phoneme production. Able to shift attention and motor skills between phonemes with greater ease. Excellent ability to copy words and letters, meeting current ST goal. Pt able to follow simple verbal instructions and answer simple questions, either verbally or with gestures, to demonstrate auditory comprehension. The pt is making good progress toward goals with marked responsiveness to therapy seen recently. Ongoing skilled treatment is medically necessary to increase his ability to express his wants, need, opinions, share information, and make requests as well as to participate in functional communication opportunities, ADLS, and highest level of quality of life. -Reviewed with Patient Goals Progress Being Made Home Exercise Program -Patient/Caregiver Understanding Good [Plan] -Amount of Therapy Recommended 8 Months -Frequency of Treatment Twice a Week -Length of Session 45 Minutes -Treatment Emphasis Next Session Continue receptive and expressive language training. -Therapeutic Contents Client Education Expressive Language Training Home Exercise Program Oral Motor Training Receptive Language Training Written Expression -Provided Patient/Caregiver Home Exercise Instruction Program Plan of Care Questions/ Concerns -Therapy Recommendations Continue with Current Program Please Sign and Return: I have reviewed this Plan of Care and certify that the skilled therapy services above are required to meet the patient???s needs. Physician Signature Date Printed Name and Credentials
--- NOTE | 2018-02-08 17:05 | ST.OPRE ---
Care Team Visit Care Team Role Provider Type Rebecca Bae DO Attending Provider Physician Family Provider Primary Care Provider Specialty: Family Practice Address: [address] [place] [address], [phone] Email: [email or web address] Speech-Language Pathology Evaluation/Summary FINISHED METAL REPAIRER Treatment Note Start: 10/27/17 17:38 Freq: Status: Active Protocol: Document 02/08/18 16:42 FELIX (Rec: 02/08/18 17:04 FELIX [email or web address]) Speech Pathology Treatment Note Session Time Visit Start Time 09:30 Visit Stop Time 10:15 Total Visit Minutes 45 Visit Information Visit Number 04/06 Plan of Care Dates 12/28/17 - 03/28/18 Insurance Information [employer] Setting Treatment Setting Outpatient Care Visit Type Note Type Treatment Note Next Note Type Next Note Type Progress Note General Information General Information 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 Left craniotomy with extraction of the clot performed at [facility]. Pt was [facility]/d to [facility] and returned home in November 2016. Moderate- Severe fluent aphasia. Subjective Others Present Electromechanisms Design Drafter Observations/Patient Presentation Patient arrived on time for therapy accompanied by his rougher helper, who was present during the session. No new complaints. The caregiver will be gone for the remainder of the week. Discussed HEP tasks to be set up for completion in her absence with spouse support. Chief Complaint(s) Speech Language Rehab Expectation/Goals: Patient Goals Increase functional expressive & receptive speech and language skills Rehab Expectation/Goals: Parent/Guardian Caregiver goal: Train to HEP /Electromechanisms Design Drafter Goals tasks and establish consistent HEP schedule Parent/Caretake Knowledge/Awareness of Good FINISHED METAL REPAIRER Role in Treatment Patient/Caregiver Compliance with Home Good Exercise Program Comment Caregiver has demonstrated excellent understanding & follow through Objective Short Term Goals 1. Imitate CV syllables/words with max cues to increase real word production. 2. Say first and last names with 90% accuracy. 3. Complete [id number] writing tasks to increase independence of written functional word production. 4. Given pictures and written presentation, point to words of familiar items with 75% accuracy and minimal verbal cues to improve reading skills . 5. Point to pictures to complete phrases presented orally to increase auditory comprehension skills. Jail Goals 1. Given oral presentation, point to words of functional objects with 75% accuracy and mod v/v cues to increase pt's ability to read in order to facilitate ability to communicate wants and needs. 2. Produce/Approximate simple functional words (e.g., names, greetings) to WFL with mod v/ v cues to increase real word production and pt's ability to communicate wants and needs. 3. Write simple functional words within functional accuracy to increase his ability to express his wants and needs. Treatment Activities Isolated prduction of /g/, 25% accuracy; consistent substitution of /d/ with and without visual models. Word production: Lorenze 98% accuracy; dog71% acc; me 27% acc, final consonant substitutions such as mean and harvey; Girl 0% accuracy; Ila 58% acc, initially improved with direct models and repetition but significant decline after delay of production. Pt alternated between Ila and Lorenze with 76% initial accuracy but unable to return to accurate production of Ila after a shift to a different task. The pt copied Ila x2 with min verbal cues and wrote Lorenze with 1 spelling error (86% acc) and min verbal prompts. The pt was encouraged when he demonstrated correct repetitions of Ila but became quite discouraged and frustrated when he was unable to maintain accuracy following an interruption to the task. Skilled feedback was provided RE the pt's tendency to intially struggle with new tasks (i.e., today he alternated between complete word productions) but to improve with practice. The caregiver asked questions RE HEP tasks for the remainder of the week to be completed in her absence. Questions were answered and writing tasks related to target words and names were recommended to reduce frustration between the pt and his attempting to work together on HEP tasks. Assessment Patient Response to Treatment Good Rehab Potential Good Impairments Identified Aphasia Expressive Language Oral Motor Reading Comprehension Written Expression Progress Towards Goals Good Progress Slow Progress Assessment of Overall Progress Improving Assessment of Improvement The pt continues to make slow but consistent progress in verbal production of names and relationships of persons/pets in his functional environment . He has improved in his ability to alternate between productions of target phonemes when given grapheme presentation, which promotes reading skills, reduces perseverative verbal productions, and increases intentional controled verbalization. He is able to say and write his first and last names with little to no support (first better than last) and is improving in matching words to pictures. The pt tends to struggle initially with new tasks and has significant associated frustration. However, he is easily encouraged and exhibits excellent endurance and determination. Improvement is consistently seen as tasks are repeated from week to week, and the pt is demonstrating increased ability to build from learned skills to advance in specific targeted verbal productions. The pt's caregiver has demonstrated good understanding of goals, hierarchical cueing, and provides excellent support to the pt. She reports moderate carryover of verbalizations (e .g., names) targeted in treatment into the pt's home environment. Reviewed with Patient Goals Progress Being Made Home Exercise Program Patient/Caregiver Understanding Good Plan Amount of Therapy Recommended 7 Months Frequency of Treatment Twice a Week Length of Session 45 Minutes Treatment Emphasis Next Session Continue alternating verbal productions of names w/ visual prompt Therapeutic Contents Client Education Expressive Language Training Home Exercise Program Oral Motor Training Receptive Language Training Written Expression Provided Patient/Caregiver Instruction Home Exercise Program Plan of Care Questions/Concerns Therapy Recommendations Continue with Current Program
--- NOTE | 2018-08-22 16:12 | ST.OPTN ---
Care Team Visit Care Team Role Provider Type Rebecca Bae DO Attending Provider Physician Family Provider Primary Care Provider Address: [address] [place] [address], [id number] PIPE WELDER Treatment Note PIPE WELDER Treatment Note Start: 10/27/17 17:38 Freq: Status: Active Protocol: Document 08/17/18 11:28 FELIX (Rec: 08/22/18 11:38 FELIX [email or web address]) Speech Pathology Treatment Note Session Time Visit Start Time 10:30 Visit Stop Time 11:15 Total Visit Minutes 45 Visit Information Visit Number 04/06 Plan of Care Dates 07/06/18 - 10/03/18 Insurance Information [employer] Setting Treatment Setting Outpatient Care Visit Type Note Type Progress Note Next Note Type Next Note Type Treatment Note General Information General Information 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 Left craniotomy with extraction of the clot performed at [facility]. Pt was dc/d to [facility] and returned home in November 2016. Moderate- Severe fluent aphasia. Subjective Identification Type Name Other Others Present Charge Nurse Observations/Patient Presentation Pt arrived on time with caregiver. The pt appeared reluctant to attend the session, stating No. I don't know. when asked if he was ready for treatment. With encouragement, the pt was agreeable and participated throughout the session. Chief Complaint(s) Speech Language Rehab Expectation/Goals: Patient Goals Increase functional expressive & receptive speech and language skills Rehab Expectation/Goals: Parent/Guardian Maintain consistent HEP /Charge Nurse Goals schedule; Conversation partner strategies Patient Knowledge/Awareness of PIPE WELDER Role Good in Treatment Parent/Caretake Knowledge/Awareness of Good PIPE WELDER Role in Treatment Patient/Caregiver Compliance with Home Good Exercise Program Comment Caregiver has demonstrated excellent understanding & follow through Objective Short Term Goals 1. Produce vowel sequence ( long vowel sounds) A-E-I-O-U with 75% accuracy and min visual cues to increase oral motor control and speech production of specific targets . Making excellent progress 2. Given same vowel sequence + initial phoneme /m/, pt will produce syllable sequence (May , Me, My, Mo, Moo) with 75% accuracy, min v/v cues to increase oral motor control for specific speech targets. Making good progress 3. Name as Esperanza and/ or my with min cues with 75% accuracy. GOAL MET ( production of Esperanza with min v/v cues) 4. Given alphabet letters and oral command, point to letters with 75% accuracy to increase letter recognition for reading skills. DISCONTINUE; Not relevant at this time 4. Given pictures and written presentation, point to familiar items with 75% accuracy and minimal verbal cues to improve reading and functional communication skills. GOAL MET 5. Given collection of pictures or picture scenes and oral commands, point to items with 75% accuracy to increase auditory comprehension skills . GOAL MET NEW GOAL: Given simple verbal instruction (e.g., Place the pencil on the paper), the pt will perform commands with 75% accuracy, min-mod v/v cues to improve auditory comprehension. Matrix Worker Goals 1. Given oral presentation, point to words of functional objects with 75% accuracy and mod v/v cues to increase pt's ability to read in order to facilitate ability to communicate wants and needs. MINIMAL PROGRESS 2. Produce/Approximate simple functional words (e.g., names, greetings) to WFL with mod v/ v cues to increase real word production and pt's ability to communicate wants and needs. GOOD PROGRESS, but inconsistent production 3. Write simple functional words within functional accuracy to increase his ability to express his wants and needs. MINIMAL PROGRESS; Pt able to write own name and copy other words 4. Use communication book/ board with 75% accuracy in functional environment to increase pt's ability to communicate his wants/needs and reduce frustration. MINIMAL PROGRESS; inconsistent use Treatment Activities Consulted with pt/caregiver RE pt's feelings about coming to /continuing therapy. The pt expressed frustration with progress being slower than he wishes. He independently took written letters (5 vowels being targeted in recent sessions) and sequenced them correctly. He pointed to letters A and I and stated, I don't understand in in a mixture of real words and jargoned speech expressed frustration with difficulty producing these sounds consistently. Skilled feedback was provided RE tx targets and goals associated with vowel sounds and the pt's progress to date. When asked if he felt Speech Therapy was beneficial and if he wished to continue, the pt stated, I don't know. Trialed use of picture presentation of emotions to assist pt in communicating his feelings. Given a set of 4 pictures depicting varying emotions and their associated words (i.e., angry, frustrated , happy, bored), the pt pointed to pictures accurately given verbal presentation of emotions, demonstrating auditory and visual comprehension. When asked if he was feeling these emotions, he pointed to Happy. Given words/pics Mad and Happy and direct model of verbal production, the pt produced mad and haffy with >90% accuracy. Given same presentation of sentences I'm mad and I'm happy, the pt repeated sentences with ~20% accuracy. Skilled feedback was provided again to both the pt and caregiver. The pt's caregiver asked about use of a picture board/book to facilitate emotions in the home environment. Discussed the limited progress that was made with communication book/board in past; however, the caregiver was encouraged to attempt its use again in the home setting to see if the pt is now more accepting of its use. Certainly further reassessment of AAC devices is an option. Assessment Patient Response to Treatment Excellent Rehab Potential Good Impairments Identified Aphasia Expressive Language Oral Motor Reading Comprehension Written Expression Progress Towards Goals Good Progress Slow Progress Assessment of Overall Progress Improving Assessment of Improvement Over the last 2-3 weeks, the pt has voiced complaints or exhibited resistance to attending treatment sessions and other medical appointments , per clinical observations and caregiver/family reports. In today's session, the pt was able to identify emotions via picture presentation; however , he was limited in his ability to express his own emotions, with feedback from him inconsistent between expressions of frustration and possible confusion vs indication that he felt happy via picture presentation. It is possible the pt misunderstood the clinician's attempts to use picture presentation for the pt to identify his own feelings. Further assessment would be necessary to tease this out. The pt has been attending many medical appointments lately and may be in need of a break or reduced frequency of Speech Therapy treatment. The pt's caregiver expressed concerns of the pt not being able to effectively communicate complex/abstract concepts such as feelings, and this PIPE WELDER is in agreement. Further discussion with the pt, his , and caregiver to be had next week to guide POC. The pt has made good progress in recent sessions toward auditory comprehension and basic verbalization goals. He has demonstrated consistent difficulty with immediate understanding of instructions for new tasks or new tx targets; however, with repetition and routine clinical and home practice, he consistently makes progress and treatment targets are able to be advanced in complexity. Carryover of speech production in functional communication has been reported by both the pt's and caregiver. For example, reduced perseveration on my son in reference to other family members and pets has been seen, and increased consistency of certain target words/phrases has also been observed (e.g., I love you and the pt's ability to sign his initials on signature lines). The pt's auditory comprehension appears to be at functional levels for simple conversations related to the pt or areas of his interest. His responses to questions and comments contain real words and/or gestures appropriate to the topic, and he is largely able to communicate basic wants, needs, interest, and concerns via a combination of word production, gestures and vocal intonation. Recommend continuing tx with followup discussions with pt/ /caregiver to determine if changes to POC frequency or a break from skilled intervention are warranted, specifically that the pt's desires are understood and met . Reviewed with Patient Goals Progress Being Made Home Exercise Program Patient/Caregiver Understanding Good Plan Frequency of Treatment Twice a Week Length of Session 45 Minutes Therapeutic Contents Client Education Expressive Language Training Home Exercise Program Oral Motor Training Receptive Language Training Written Expression Provided Patient/Caregiver Instruction Home Exercise Program Plan of Care Questions/Concerns Therapy Recommendations Continue with Current Program
--- NOTE | 2018-11-07 18:14 | ST.OPTN ---
Care Team Visit Care Team Role Provider Type Rebecca Bae DO Attending Provider Physician Family Provider Primary Care Provider Address: [address] [place] [address], [id number] CASE MANAGEMENT MANAGER Treatment Note CASE MANAGEMENT MANAGER Treatment Note Start: 10/27/17 17:38 Freq: Status: Active Protocol: Document 11/07/18 11:27 FELIX (Rec: 11/07/18 11:43 FELIX [email or web address]) Speech Pathology Treatment Note Session Time Visit Start Time 10:30 Visit Stop Time 11:25 Total Visit Minutes 55 Visit Information Visit Number 02/04 Plan of Care Dates 09/27/18 - 12/27/18 Insurance Information [employer] Setting Treatment Setting Outpatient Care Visit Type Note Type Progress Note Next Note Type Next Note Type Treatment Note General Information General Information 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 Left craniotomy with extraction of the clot performed at [facility]. Pt was dc/d to [facility] and returned home in November 2016. Moderate- Severe fluent aphasia. Subjective Identification Type Name Other Others Present Secy Observations/Patient Presentation Pt arrived on time with his caregiver, who was present throughout the session. The pt was tired d/t busy activities over the weekend. CG reported the pt independently used her name in an appropriate context x1 last week. At request of pt's , the CG also conveyed 's concern RE management of the pt's emotions, as he and his son had 2 significant conflicts over the weekend. Chief Complaint(s) Speech Language Rehab Expectation/Goals: Patient Goals Increase functional expressive & receptive speech and language skills Rehab Expectation/Goals: Parent/Guardian Maintain consistent HEP /Secy Goals schedule; Conversation partner strategies Patient Knowledge/Awareness of CASE MANAGEMENT MANAGER Role Good in Treatment Parent/Caretake Knowledge/Awareness of Good CASE MANAGEMENT MANAGER Role in Treatment Patient/Caregiver Compliance with Home Good Exercise Program Comment Caregiver has demonstrated excellent understanding & follow through Objective Short Term Goals 1. Produce vowel sequence ( long vowel sounds) A-E-I-O-U with 75% accuracy and min visual cues to increase oral motor control and speech production of specific targets . GOAL MET 2. Given same vowel sequence + initial labial phonemes (e.g. , /m/, /p/, /b/), pt will produce syllable sequence (e.g ., May, Me, My, Mo, Moo) with 75% accuracy, min v/v cues to increase oral motor control for specific speech targets. MAKING EXCELLENT PROGRESS 3. Name as Esperanza and/ or my with min cues with 75% accuracy. GOAL MET ( production of Esperanza with min v/v cues) 4. NEW GOAL: The pt will increase real word/name production to 50% of familiar items/family members using pictorial cue for initial phoneme of words to decrease reliance on gesture, as measured by family/caregiver/ pt report and clinical judgement. 5. Given simple verbal instruction (e.g., Place the pencil on the paper), the pt will perform commands with 75% accuracy, min-mod v/v cues to improve auditory comprehension. Radiologic Electronic Specialist Goals 1. Using words, gestures, and body language, the pt will communicate his wants, needs, opinions, questions and ideas in his functional environment to highest functional level, as measured by family/ caregiver/pt report and clinical judgement. 2. Given oral presentation, point to words of functional objects with 75% accuracy and mod v/v cues to increase pt's ability to read in order to facilitate ability to communicate wants and needs. MAKING PROGRESS 3. Produce/Approximate simple functional words (e.g., names, greetings) to WFL with mod v/ v cues to increase real word production and pt's ability to communicate wants and needs. GOOD PROGRESS, but inconsistent production 4. Write simple functional words within functional accuracy to increase his ability to express his wants and needs. DISCONTINUE; Pt able to write own name and copy other words which suffices for functional needs. 5. Use communication book/ board with 75% accuracy in functional environment to increase pt's ability to communicate his wants/needs and reduce frustration. DISCONTINUE due to lack of pt interest. Treatment Activities The pt wrote his first and last names with initial max verbal and 2 visual cues. Re- training provided particularly targeting common occurrence and placement of r in both names. After training and copy practice, the pt wrote his first & last names with min verbal prompts. Pt expressed concern and asked questions RE why writing his name was challenging when he has been able to write it in the past. Skilled feedback and education provided RE consequences of stroke and need for regular home practice . The pt exhibited disappointment but interest in increasing home practice and took paper on which he wrote his name to use as example for home practice. Education and feedback was also provided to CG RE pt's 's concern about managing the pt's emotions. Recommendation was made to psychologist/mental health specialist for such management . Training of pt to verbalize emotions was discussed and agreed not to be incorporated into tx goals at this time secondary to severity of verbal production and because of the pt's ability to non- verbally make emotions clear. CG in agreement and will convey to pt's , who was welcomed to call to further discuss if necessary. Assessment Patient Response to Treatment Excellent Rehab Potential Good Impairments Identified Aphasia Expressive Language Oral Motor Reading Comprehension Written Expression Progress Towards Goals Good Progress Slow Progress Assessment of Overall Progress Improving Assessment of Improvement The pt exhibited initial declined ability to independently write first and last names; however, he was quickly responsive to re- training and demonstrated motivation to increase practice at home (i.e., he took the worksheet for home practice). He was responsive to education toward common letters/placement in both names and, after practice, was more independently able to write names. Needs reinforcement both in tx and in home practice. CG was receptive to and in agreement with recommendations for mental health professional to address management of the pt's emotions. Targeting verbal production/identification of emotions into treatment is not recommended at this time fpr a number of reasons: 1) Over course of tx, verbal production of concrete words has required significant amounts of time; abstract language such as feelings is likely to require even more time; 2) the pt's ability to convey his emotions and wants/ needs non-verbally through facial expression, gestures and tone is a strength; and 3) management of emotions themselves is outside the CASE MANAGEMENT MANAGER' s scope of practice. Reviewed with Patient Goals Progress Being Made Home Exercise Program Patient/Caregiver Understanding Good Plan Comment Anticipate 4-6 months Frequency of Treatment Twice a Week Comment As scheduling allows Length of Session 45 Minutes Therapeutic Contents Client Education Expressive Language Training Home Exercise Program Oral Motor Training Receptive Language Training Written Expression Provided Patient/Caregiver Instruction Home Exercise Program Plan of Care Questions/Concerns Therapy Recommendations Continue with Current Program
--- NOTE | 2018-11-14 17:28 | ST.OPTN ---
Care Team Visit Care Team Role Provider Type Rebecca Bae DO Attending Provider Physician Family Provider Primary Care Provider Address: [address] [place] [address], [id number] GUM PULLER Treatment Note GUM PULLER Treatment Note Start: 10/27/17 17:38 Freq: Status: Active Protocol: Document 11/14/18 11:33 FELIX (Rec: 11/14/18 11:54 FELIX [email or web address]) Speech Pathology Treatment Note Session Time Visit Start Time 10:30 Visit Stop Time 11:20 Total Visit Minutes 50 Visit Information Visit Number 04/06 Plan of Care Dates 11/14/18 - 02/07/19 Insurance Information [employer] Setting Treatment Setting Outpatient Care Visit Type Note Type Progress Note Next Note Type Next Note Type Treatment Note General Information General Information 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 Left craniotomy with extraction of the clot performed at [facility]. Pt was dc/d to [facility] and returned home in November 2016. Moderate- Severe fluent aphasia. Subjective Identification Type Name Other Others Present Oil Burner Servicer And Installer Observations/Patient Presentation Jackie arrived on time with his Caregiver (CG), who was present throughout and provided helpful feedback RE functional goals. Chief Complaint(s) Speech Language Rehab Expectation/Goals: Patient Goals Increase functional expressive & receptive speech and language skills Rehab Expectation/Goals: Parent/Guardian Maintain consistent HEP /Oil Burner Servicer And Installer Goals schedule; Conversation partner strategies Patient Knowledge/Awareness of GUM PULLER Role Good in Treatment Parent/Caretake Knowledge/Awareness of Good GUM PULLER Role in Treatment Patient/Caregiver Compliance with Home Good Exercise Program Comment Caregiver has demonstrated excellent understanding & follow through Objective Short Term Goals 1. Given familiar vowel sequence + initial labial phonemes (e.g., /m/, /p/, /b/) , pt will produce syllable sequence (e.g., May, Me, My, Mo, Moo) with 75% accuracy, min v/v cues to increase oral motor control for specific speech targets. MAKING EXCELLENT PROGRESS - /m/ goal met 2. The pt will increase real word/name production of familiar people in his functional environment using pictorial cue for initial phoneme of words to decrease reliance on gesture, as measured by family/caregiver/ pt report and clinical judgement. MAKING EXCELLENT PROGRESS - demonstrating initial signs of independent production 3. NEW GOAL: The pt will produce please and thank you with 80% acc and min v/v cues to increase speech production of pragmatic language and maintain relationships. 4. NEW GOAL: The pt will copy his address and phone number with 100% accuracy to increase independence and improve ability to communicate critical personal information. 5. Given simple verbal instruction (e.g., Place the pencil on the paper), the pt will perform commands with 75% accuracy, min-mod v/v cues to improve auditory comprehension. Bar Steward Goals 1. Using words, gestures, and body language, the pt will communicate his wants, needs, opinions, questions and ideas in his functional environment to highest functional level, as measured by family/ caregiver/pt report and clinical judgement. GOOD PROGRESS - oral vocabulary is expanding 2. Given oral presentation, point to words of functional objects with 75% accuracy and mod v/v cues to increase pt's ability to read in order to facilitate ability to communicate wants and needs. MAKING PROGRESS 3. Produce/Approximate simple functional words (e.g., names, greetings) to WFL with mod v/ v cues to increase real word production and pt's ability to communicate wants and needs. GOOD PROGRESS, but inconsistent production 4. Write name and contact info within functional accuracy to increase his ability to communicate personal information and increase independence. Treatment Activities Jackie wrote first/last names independently. Letters were legible, larger than typical handwriting and he expressed dislike of how it looked (It looks ugly). Given direct model, he wrote his name in a smaller font. Writing remained legible although somewhat imprecise lines secondary to right hand deficits. He did experience fatigue in that hand and required rest. Given written model of his address, Jackie copied street address, city, state and zip code with 100% accuracy and legibility, again somewhat imprecise secondary to fine motor deficits. Collaborated with pt and CG RE tx goals and HEP. Provided written instructions for HEP to promote pt independence and compliance. Created Aphasia ID/Communication cards for the pt, his and CG to keep on their persons in case of emergency or to assist Jackie in communicating his condition and personal information to others not familiar with him. These will be laminated and provided at the next session. Discussed and agreed upon new tx goals with pt/cg input. Assessment Patient Response to Treatment Excellent Rehab Potential Good Impairments Identified Aphasia Expressive Language Oral Motor Reading Comprehension Written Expression Progress Towards Goals Good Progress Slow Progress Assessment of Overall Progress Improving Assessment of Improvement Over the course of treatment, Jackie has gained independence in writing his own name and has increased his ability to call 3 significant individuals by their names. Recently he has initiated these name productions with little to no prompting in his functional environment and has begun greeting the Clinician with an appropriate phrase, How's it going?. 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 Jackie's conversational speech continues to be littered with paraphasia's; however, islands of clear speech are increasing in frequency, length, and variety . His and caregiver report increased participation in conversations with friends and family. He continues to use gestures, pointing, and tone of voice to communicate wants, needs, emotion, and humor and does so quite effectively in most situations with people who are familiar with him. Over the last 10 sessions, the pt has also participated more actively in his POC, communicating his personal desire to continue with Speech Therapy, acknowledging his own improvement, and exhibiting increased motivation, as demonstrated by readying himself on the mornings of treatment and initiating completion of HEP tasks. Continued skilled intervention is medically necessary to increase the pt's ability to communicate functional information about himself, reduce communication barriers, and expand expressive vocabulary to maintain relationships. Reviewed with Patient Goals Progress Being Made Home Exercise Program Patient/Caregiver Understanding Good Plan Comment Anticipate 4-6 months Frequency of Treatment Twice a Week Comment As scheduling allows Length of Session 45 Minutes Therapeutic Contents Client Education Expressive Language Training Home Exercise Program Oral Motor Training Receptive Language Training Written Expression Provided Patient/Caregiver Instruction Home Exercise Program Plan of Care Questions/Concerns Therapy Recommendations Continue with Current Program
--- NOTE | 2018-11-16 11:49 | ST.OPTN ---
Care Team Visit Care Team Role Provider Type Rebecca Bae DO Attending Provider Physician Family Provider Primary Care Provider Address: [address] [place] [address], [id number] RESOURCE ENGINEER Treatment Note RESOURCE ENGINEER Treatment Note Start: 10/27/17 17:38 Freq: Status: Active Protocol: Document 11/16/18 11:28 FELIX (Rec: 11/16/18 11:48 FELIX [id number]) Speech Pathology Treatment Note Session Time Visit Start Time 10:30 Visit Stop Time 11:15 Total Visit Minutes 45 Visit Information Visit Number 07/07 Plan of Care Dates 11/14/18 - 02/07/19 Insurance Information [facility] Setting Treatment Setting Outpatient Care Visit Type Note Type Treatment Note Next Note Type Next Note Type Treatment Note General Information General Information 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 Left craniotomy with extraction of the clot performed at [facility]. Pt was dc/d to [facility] and returned home in November 2016. Moderate- Severe fluent aphasia. Subjective Identification Type Name Other Others Present Chief Solution Architect Observations/Patient Presentation Jackie arrived on time with his Caregiver (CG), who was present throughout. She reported Jackie has shown increased initiation with ST HEP tasks as well as his personal care, which is a significant change for this pt . Having a written list of HEP tasks appears to contribute to this, as Jackie asked her, What do we need to do? Chief Complaint(s) Speech Language Rehab Expectation/Goals: Patient Goals Increase functional expressive & receptive speech and language skills Rehab Expectation/Goals: Parent/Guardian Maintain consistent HEP /Chief Solution Architect Goals schedule; Conversation partner strategies Patient Knowledge/Awareness of RESOURCE ENGINEER Role Good in Treatment Parent/Caretake Knowledge/Awareness of Good RESOURCE ENGINEER Role in Treatment Patient/Caregiver Compliance with Home Good Exercise Program Comment Caregiver has demonstrated excellent understanding & follow through Objective Short Term Goals 1. Given familiar vowel sequence + initial labial phonemes (e.g., /m/, /p/, /b/) , pt will produce syllable sequence (e.g., May, Me, My, Mo, Moo) with 75% accuracy, min v/v cues to increase oral motor control for specific speech targets. MAKING EXCELLENT PROGRESS - /m/ goal met 2. The pt will increase real word/name production of familiar people in his functional environment using pictorial cue for initial phoneme of words to decrease reliance on gesture, as measured by family/caregiver/ pt report and clinical judgement. MAKING EXCELLENT PROGRESS - demonstrating initial signs of independent production 3. NEW GOAL: The pt will produce please and thank you with 80% acc and min v/v cues to increase speech production of pragmatic language and maintain relationships. 4. NEW GOAL: The pt will copy his address and phone number with 100% accuracy to increase independence and improve ability to communicate critical personal information. 5. Given simple verbal instruction (e.g., Place the pencil on the paper), the pt will perform commands with 75% accuracy, min-mod v/v cues to improve auditory comprehension. Automotive Airconditioning Mechanic Goals 1. Using words, gestures, and body language, the pt will communicate his wants, needs, opinions, questions and ideas in his functional environment to highest functional level, as measured by family/ caregiver/pt report and clinical judgement. GOOD PROGRESS - oral vocabulary is expanding 2. Given oral presentation, point to words of functional objects with 75% accuracy and mod v/v cues to increase pt's ability to read in order to facilitate ability to communicate wants and needs. MAKING PROGRESS 3. Produce/Approximate simple functional words (e.g., names, greetings) to WFL with mod v/ v cues to increase real word production and pt's ability to communicate wants and needs. GOOD PROGRESS, but inconsistent production 4. Write name and contact info within functional accuracy to increase his ability to communicate personal information and increase independence. Treatment Activities With initial letter prompt and verbal instructions, Jackie wrote his first and last names independently. Need for initial prompt appeared to be for clarification of instructions likely secondary to an unfamiliar setup of the page (the word Name appeared in the space where he was being asked to write). He then copied his street address x2 without cuing. Letters were legible and normal font size. Handwriting was somewhat shaky , which bothers Jackie. Throughout the session, Jackie complained of something about the room, pointing around and saying, Boy it's a big one today. Through questioning and interpretation of body language, it was determined he felt hot. Attempted to train him to produce hot, given oral motor models and segmentation. He acheived hah and /t/ in isolation but did not successfully combine the two. Task was abandoned. Given pictures of son, , and caregiver, the pt initially required oral motor demonstration and segmentation and then produced each name correctly x>8 reps each. Given phonemic cues and pictures, he alternated names with 72% accuracy. In conversation today, Jackie frequently joked and teased the clinician and caregiver, exhibiting good comprehension of situations and use of humor . When discussing the shakiness of his handwriting, the RESOURCE ENGINEER said, Who cares? and Jackie responded, Well, I do. which again demonstrates comprehension and ability to express opinion with real and appropriate words. Assessment Patient Response to Treatment Excellent Rehab Potential Good Impairments Identified Aphasia Expressive Language Oral Motor Reading Comprehension Written Expression Progress Towards Goals Good Progress Slow Progress Assessment of Overall Progress Improving Assessment of Improvement Jackie exhibited increased variety of word usage within several conversational topics. His comments demonstrated his comprehension of these topics and use of humor was frequent and appropriate to the contexts. [place] in writing his name continues and he is progressing toward goal of writing address by independently copying it accurately. Although real word usage was somewhat increased today, he continues with paraphasias in speech and, when writing his name, produced a variety of random letter and numbers, none of which corresponded to that which he was writing, demonstrating continued naming deficits. He did, however, count consecutively from 1-6 with ease. He is showing increased initiative, motivation, and carryover in his home environment, leading to greater compliance with HEP tasks. Reviewed with Patient Goals Progress Being Made Home Exercise Program Patient/Caregiver Understanding Good Plan Comment Anticipate 4-6 months Frequency of Treatment Twice a Week Comment As scheduling allows Length of Session 45 Minutes Therapeutic Contents Client Education Expressive Language Training Home Exercise Program Oral Motor Training Receptive Language Training Written Expression Provided Patient/Caregiver Instruction Home Exercise Program Plan of Care Questions/Concerns Therapy Recommendations Continue with Current Program
--- NOTE | 2018-11-30 17:22 | ST.OPTN ---
Care Team Visit Care Team Role Provider Type Rebecca Bae DO Attending Provider Physician Family Provider Primary Care Provider Address: [address] [place] [address], [id number] SALESPERSON PETS AND PET SUPPLIES Treatment Note SALESPERSON PETS AND PET SUPPLIES Treatment Note Start: 10/27/17 17:38 Freq: Status: Active Protocol: Document 11/30/18 17:09 FELIX (Rec: 11/30/18 17:22 FELIX [email or web address]) Speech Pathology Treatment Note Session Time Visit Start Time 10:30 Visit Stop Time 11:15 Total Visit Minutes 45 Visit Information Visit Number 08/07 Plan of Care Dates 11/14/18 - 02/07/19 Insurance Information [facility] Setting Treatment Setting Outpatient Care Visit Type Note Type Treatment Note Next Note Type Next Note Type Treatment Note General Information General Information 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 Left craniotomy with extraction of the clot performed at [facility]. Pt was dc/d to [facility] and returned home in November 2016. Moderate- Severe fluent aphasia. Subjective Identification Type Name Other Others Present Museum Technician Observations/Patient Presentation Jackie arrived on time with his Caregiver (CG), who was present throughout. The pt missed his appointment on Wednesday d/t confusion about scheduling. Chief Complaint(s) Speech Language Rehab Expectation/Goals: Patient Goals Increase functional expressive & receptive speech and language skills Rehab Expectation/Goals: Parent/Guardian Maintain consistent HEP /Museum Technician Goals schedule; Conversation partner strategies Patient Knowledge/Awareness of SALESPERSON PETS AND PET SUPPLIES Role Good in Treatment Parent/Caretake Knowledge/Awareness of Good SALESPERSON PETS AND PET SUPPLIES Role in Treatment Patient/Caregiver Compliance with Home Good Exercise Program Comment Caregiver has demonstrated excellent understanding & follow through Objective Short Term Goals 1. Given familiar vowel sequence + initial labial phonemes (e.g., /m/, /p/, /b/) , pt will produce syllable sequence (e.g., May, Me, My, Mo, Moo) with 75% accuracy, min v/v cues to increase oral motor control for specific speech targets. MAKING EXCELLENT PROGRESS - /m/ goal met 2. The pt will increase real word/name production of familiar people in his functional environment using pictorial cue for initial phoneme of words to decrease reliance on gesture, as measured by family/caregiver/ pt report and clinical judgement. MAKING EXCELLENT PROGRESS - demonstrating initial signs of independent production 3. NEW GOAL: The pt will produce please and thank you with 80% acc and min v/v cues to increase speech production of pragmatic language and maintain relationships. 4. NEW GOAL: The pt will copy his address and phone number with 100% accuracy to increase independence and improve ability to communicate critical personal information. 5. Given simple verbal instruction (e.g., Place the pencil on the paper), the pt will perform commands with 75% accuracy, min-mod v/v cues to improve auditory comprehension. Intermediate Goals 1. Using words, gestures, and body language, the pt will communicate his wants, needs, opinions, questions and ideas in his functional environment to highest functional level, as measured by family/ caregiver/pt report and clinical judgement. GOOD PROGRESS - oral vocabulary is expanding 2. Given oral presentation, point to words of functional objects with 75% accuracy and mod v/v cues to increase pt's ability to read in order to facilitate ability to communicate wants and needs. MAKING PROGRESS 3. Produce/Approximate simple functional words (e.g., names, greetings) to WFL with mod v/ v cues to increase real word production and pt's ability to communicate wants and needs. GOOD PROGRESS, but inconsistent production 4. Write name and contact info within functional accuracy to increase his ability to communicate personal information and increase independence. Treatment Activities Reviewed tx schedule with pt/ cg. Provided pt with a calendar of October with tx sessions recorded on appropriate days. Discussed his desire to continue treatment, and Jackie expressed he did wish to. Following initial model of 3 familiar names, Jackie produced each name with phonemic cue x1/name, then independent production. Introduced new word: Please. Given direct oral motor modeling, Jackie produced /p/ /l/ /i/ and /z/ in isolation x5 independent productions each. He produced /pl/ as pull and syllable /pli/ as puh-jovan x5 independent productions each, following direct modeling. He benefited from review of familiar vowel sequence to produce /i/ and / pli/, which he produced with modified independence. Attempted with direct models both from SALESPERSON PETS AND PET SUPPLIES and computer camelia to eliminate schwa syllable unsuccesfully. Given direct models and max v/v cues, attempted to train pt in word production of please. Productions of puh-lings were the closest approximations. Attempted unsuccessfully to elicit the word in a functional situation . Assessment Patient Response to Treatment Excellent Rehab Potential Good Impairments Identified Aphasia Expressive Language Oral Motor Reading Comprehension Written Expression Progress Towards Goals Good Progress Slow Progress Assessment of Overall Progress Improving Assessment of Improvement Jackie was able to produced independent phonemes with little training and exhibited excellent recall and carryover of productions of familiar vowel sequence, which was helpful in facilitating new learning. Approximations were made of /pl/ with added schwa, unable to eliminate. Jackie demonstrated responsiveness to initial training of a new word to maintain relationships in his functional environment . Requires further training. Reviewed with Patient Goals Progress Being Made Patient/Caregiver Understanding Good Plan Comment Anticipate 4-6 months Frequency of Treatment Twice a Week Comment As scheduling allows Length of Session 45 Minutes Therapeutic Contents Client Education Expressive Language Training Home Exercise Program Oral Motor Training Receptive Language Training Written Expression Provided Patient/Caregiver Instruction Home Exercise Program Plan of Care Questions/Concerns Therapy Recommendations Continue with Current Program
--- NOTE | 2018-12-07 18:12 | ST.OPTN ---
Care Team Visit Care Team Role Provider Type Rebecca Bae DO Attending Provider Physician Family Provider Primary Care Provider Address: [address] [place] [address], [id number] INSPECTOR CONVEYOR LINE Treatment Note INSPECTOR CONVEYOR LINE Treatment Note Start: 10/27/17 17:38 Freq: Status: Active Protocol: Document 12/07/18 17:52 FELIX (Rec: 12/07/18 18:12 FELIX [email or web address]) Speech Pathology Treatment Note Session Time Visit Start Time 10:30 Visit Stop Time 11:15 Total Visit Minutes 45 Visit Information Visit Number 09/04 Plan of Care Dates 11/14/18 - 02/07/19 Insurance Information [employer] Setting Treatment Setting Outpatient Care Visit Type Note Type Treatment Note Next Note Type Next Note Type Treatment Note General Information General Information 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 Left craniotomy with extraction of the clot performed at [facility]. Pt was dc/d to [facility] and returned home in November 2016. Moderate- Severe fluent aphasia. Subjective Identification Type Name Other Others Present Mule Tender Observations/Patient Presentation Jackie arrived on time with his Caregiver (CG) who was not feeling well and therefore did not participate in treatment. Chief Complaint(s) Speech Language Rehab Expectation/Goals: Patient Goals Increase functional expressive & receptive speech and language skills Rehab Expectation/Goals: Parent/Guardian Maintain consistent HEP /Mule Tender Goals schedule; Conversation partner strategies Patient Knowledge/Awareness of INSPECTOR CONVEYOR LINE Role Good in Treatment Parent/Caretake Knowledge/Awareness of Good INSPECTOR CONVEYOR LINE Role in Treatment Patient/Caregiver Compliance with Home Good Exercise Program Comment Caregiver has demonstrated excellent understanding & follow through Objective Short Term Goals 1. Given familiar vowel sequence + initial labial phonemes (e.g., /m/, /p/, /b/) , pt will produce syllable sequence (e.g., May, Me, My, Mo, Moo) with 75% accuracy, min v/v cues to increase oral motor control for specific speech targets. MAKING EXCELLENT PROGRESS - /m/ goal met 2. The pt will increase real word/name production of familiar people in his functional environment using pictorial cue for initial phoneme of words to decrease reliance on gesture, as measured by family/caregiver/ pt report and clinical judgement. MAKING EXCELLENT PROGRESS - demonstrating initial signs of independent production 3. NEW GOAL: The pt will produce please and thank you with 80% acc and min v/v cues to increase speech production of pragmatic language and maintain relationships. 4. NEW GOAL: The pt will copy his address and phone number with 100% accuracy to increase independence and improve ability to communicate critical personal information. 5. Given simple verbal instruction (e.g., Place the pencil on the paper), the pt will perform commands with 75% accuracy, min-mod v/v cues to improve auditory comprehension. Account Financial Manager Goals 1. Using words, gestures, and body language, the pt will communicate his wants, needs, opinions, questions and ideas in his functional environment to highest functional level, as measured by family/ caregiver/pt report and clinical judgement. GOOD PROGRESS - oral vocabulary is expanding 2. Given oral presentation, point to words of functional objects with 75% accuracy and mod v/v cues to increase pt's ability to read in order to facilitate ability to communicate wants and needs. MAKING PROGRESS 3. Produce/Approximate simple functional words (e.g., names, greetings) to WFL with mod v/ v cues to increase real word production and pt's ability to communicate wants and needs. GOOD PROGRESS, but inconsistent production 4. Write name and contact info within functional accuracy to increase his ability to communicate personal information and increase independence. Treatment Activities Jackie participated in spontaneous conversation with expanded vocabulary exhibited today. He was able to communicate that he had been to the doctor to have his skin examined and, presumably, a wart and sun spots removed. He stated he had had these skin conditions for a very long time. Communication was successful through use of words and gestures. Significant paraphasias were present but offset by enough real words to communicate general ideas. Continued oral production training of word Please to increase pragmatic language use and maintain relationships with caregivers and family. Given direct oral motor modeling, Jackie produced /p/ /l/ /i/ and /z/ in isolation x5 independent productions each. He produced /pl/ as pull and syllable /pli/ as puh-jovan x5 independent productions each, following direct modeling. Using forward and backward segmentation, Jackie produced segments /iz/ and /rashel/ with intermittent success, frequently substituting /ng/ and /n/ for /z/. Visual cues included phonetic representations; however, Jackie requested the real word and cue was modified to please. Productions made today were closer approximations to the word as compared to last session, with puhleesah as the closest approximation. To demonstrate function of the word and to promote more spontaneous productions, 7 familiar objects were arranged on the table. The INSPECTOR CONVEYOR LINE asked for objects using please phrases. Jackie gave objects to the clinician in response. He did so with with 50% accuracy of object identification (auditory comprehension/naming skills). He verbalized confusion around purpose of task, which was explained; however, comprehension is questionable. Assessment Patient Response to Treatment Excellent Rehab Potential Good Impairments Identified Aphasia Expressive Language Oral Motor Reading Comprehension Written Expression Progress Towards Goals Good Progress Slow Progress Assessment of Overall Progress Improving Assessment of Improvement Jackie exhibited greater vocabulary use in spontaneous conversation today as compared to previous sessions. This may be because his caregiver was not present to speak for him, which placed greater communication demands on him. He exhibited no frustration while communicating, nor hesitation to speak for himself. He also demonstrated slow progress with production of the word please. Auditory comprehension was inconsistent both with direct tasks ( object identification) and comprehension of task related information. However, he exhibited motivation to practice the word, as demonstrated by requests to have words Please and Thank You written on paper for him to take home. Jackie's progress with production of this word is consistent with his learning patterns with other words that have been targeted; therefore, it is anticipated that he will meet the goal of producing please . Reviewed with Patient Goals Progress Being Made Home Exercise Program Patient/Caregiver Understanding Good Plan Comment Anticipate 4-6 months Frequency of Treatment Twice a Week Comment As scheduling allows Length of Session 45 Minutes Therapeutic Contents Client Education Expressive Language Training Home Exercise Program Oral Motor Training Receptive Language Training Written Expression Provided Patient/Caregiver Instruction Home Exercise Program Plan of Care Questions/Concerns Therapy Recommendations Continue with Current Program
--- NOTE | 2018-12-12 17:07 | ST.OPTN ---
Care Team Visit Care Team Role Provider Type Rebecca Bae DO Attending Provider Physician Family Provider Primary Care Provider Address: [address] [place] [address], [id number] FIBER TECHNOLOGIST Treatment Note FIBER TECHNOLOGIST Treatment Note Start: 10/27/17 17:38 Freq: Status: Active Protocol: Document 12/12/18 11:18 FELIX (Rec: 12/12/18 11:47 FELIX [email or web address]) Speech Pathology Treatment Note Session Time Visit Start Time 10:30 Visit Stop Time 11:15 Total Visit Minutes 45 Visit Information Visit Number 10/05 Plan of Care Dates 11/14/18 - 02/07/19 Insurance Information [facility] Setting Treatment Setting Outpatient Care Visit Type Note Type Treatment Note Next Note Type Next Note Type Treatment Note General Information General Information 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 Left craniotomy with extraction of the clot performed at [facility]. Pt was dc/d to [facility] and returned home in November 2016. Moderate- Severe fluent aphasia. Subjective Identification Type Name Other Others Present Profile Shaper Operator Observations/Patient Presentation Jackie arrived on time with his Caregiver (CG) who was present throughout. Chief Complaint(s) Speech Language Rehab Expectation/Goals: Patient Goals Increase functional expressive & receptive speech and language skills Rehab Expectation/Goals: Parent/Guardian Maintain consistent HEP /Profile Shaper Operator Goals schedule; Conversation partner strategies Patient Knowledge/Awareness of FIBER TECHNOLOGIST Role Good in Treatment Parent/Caretake Knowledge/Awareness of Good FIBER TECHNOLOGIST Role in Treatment Patient/Caregiver Compliance with Home Good Exercise Program Comment Caregiver has demonstrated excellent understanding & follow through Objective Short Term Goals 1. Given familiar vowel sequence + initial labial phonemes (e.g., /m/, /p/, /b/) , pt will produce syllable sequence (e.g., May, Me, My, Mo, Moo) with 75% accuracy, min v/v cues to increase oral motor control for specific speech targets. MAKING EXCELLENT PROGRESS - /m/ goal met 2. The pt will increase real word/name production of familiar people in his functional environment using pictorial cue for initial phoneme of words to decrease reliance on gesture, as measured by family/caregiver/ pt report and clinical judgement. MAKING EXCELLENT PROGRESS - demonstrating initial signs of independent production 3. NEW GOAL: The pt will produce please and thank you with 80% acc and min v/v cues to increase speech production of pragmatic language and maintain relationships. 4. NEW GOAL: The pt will copy his address and phone number with 100% accuracy to increase independence and improve ability to communicate critical personal information. 5. Given simple verbal instruction (e.g., Place the pencil on the paper), the pt will perform commands with 75% accuracy, min-mod v/v cues to improve auditory comprehension. Senior Environmental Practice Leader Goals 1. Using words, gestures, and body language, the pt will communicate his wants, needs, opinions, questions and ideas in his functional environment to highest functional level, as measured by family/ caregiver/pt report and clinical judgement. GOOD PROGRESS - oral vocabulary is expanding 2. Given oral presentation, point to words of functional objects with 75% accuracy and mod v/v cues to increase pt's ability to read in order to facilitate ability to communicate wants and needs. MAKING PROGRESS 3. Produce/Approximate simple functional words (e.g., names, greetings) to WFL with mod v/ v cues to increase real word production and pt's ability to communicate wants and needs. GOOD PROGRESS, but inconsistent production 4. Write name and contact info within functional accuracy to increase his ability to communicate personal information and increase independence. Treatment Activities Continued training of word please with demonstration of pragmatic word use with CG, Casey (Casey, please...(do something). During demonstration, the pt produced Casey spontaneously x6. Presented target words jerrod Peña in writing. The pt pointed to please and stated , That's a hard one. I tried (at home) but I don't know. Not very good. That's a hard one. Trained pt using segmentation starting with familiar vowel sounds and adding phonemes /l/ and /pl/ to initial position of syllables, then adding /z/ to final VC position. Jackie produced V, CV and CCV targets x>5 independent productions after initial recitation with Clinician. He recited VC syllables with Clinician with 60% accuracy with max v/v cues , improved to 70% accuracy with Clinician's oral motor visual cue only (eliminating written cues). Isolated /iz/ to transition to target word. Jackie spontaneously added /l / for /rashel/ and produced x5 independently. Expanded presentation to /pliz/ and produced independently x5. The pt then produced the word multiple times immediately and after an ~4 min delay with natural intonation and 100% accuracy. Assessment Patient Response to Treatment Excellent Rehab Potential Good Impairments Identified Aphasia Expressive Language Oral Motor Reading Comprehension Written Expression Progress Towards Goals Good Progress Slow Progress Assessment of Overall Progress Improving Assessment of Improvement Excellent progress made today toward production of word please. Jackie was highly responsive to phonemic segmentation, able to produce CV, CCV, VC syllables leading up to complete word production . By the end of the session, he expressed being very pleased with progress made today: That was a good one! Yeah, that's good. Reviewed with Patient Goals Progress Being Made Home Exercise Program Patient/Caregiver Understanding Good Plan Comment Anticipate 4-6 months Frequency of Treatment Twice a Week Comment As scheduling allows Length of Session 45 Minutes Treatment Emphasis Next Session Production of please in isolation and with name production (Casey, please) Therapeutic Contents Client Education Expressive Language Training Home Exercise Program Oral Motor Training Receptive Language Training Written Expression Provided Patient/Caregiver Instruction Home Exercise Program Plan of Care Questions/Concerns Therapy Recommendations Continue with Current Program
--- NOTE | 2018-12-14 12:26 | ST.OPTN ---
Care Team Visit Care Team Role Provider Type Rebecca Bae DO Attending Provider Physician Family Provider Primary Care Provider Address: [address] [place] [address], [id number] CLEANER AND PREPARER Treatment Note CLEANER AND PREPARER Treatment Note Start: 10/27/17 17:38 Freq: Status: Active Protocol: Document 12/14/18 12:18 FELIX (Rec: 12/14/18 12:26 FELIX [email or web address]) Speech Pathology Treatment Note Session Time Visit Start Time 10:30 Visit Stop Time 11:15 Total Visit Minutes 45 Visit Information Visit Number 11/04 Plan of Care Dates 11/14/18 - 02/07/19 Insurance Information [facility] Setting Treatment Setting Outpatient Care Visit Type Note Type Treatment Note Next Note Type Next Note Type Treatment Note General Information General Information 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 Left craniotomy with extraction of the clot performed at [facility]. Pt was dc/d to [facility] and returned home in November 2016. Moderate- Severe fluent aphasia. Subjective Identification Type Name Other Others Present Diversified Crops Farmer Observations/Patient Presentation Jackie arrived on time with his Caregiver (CG) who was present throughout. Pt c/o vision difficulty throughout session. He was given eye drops by CG with some benefit. Chief Complaint(s) Speech Language Rehab Expectation/Goals: Patient Goals Increase functional expressive & receptive speech and language skills Rehab Expectation/Goals: Parent/Guardian Maintain consistent HEP /Diversified Crops Farmer Goals schedule; Conversation partner strategies Patient Knowledge/Awareness of CLEANER AND PREPARER Role Good in Treatment Parent/Caretake Knowledge/Awareness of Good CLEANER AND PREPARER Role in Treatment Patient/Caregiver Compliance with Home Good Exercise Program Comment Caregiver has demonstrated excellent understanding & follow through Objective Short Term Goals 1. Given familiar vowel sequence + initial labial phonemes (e.g., /m/, /p/, /b/) , pt will produce syllable sequence (e.g., May, Me, My, Mo, Moo) with 75% accuracy, min v/v cues to increase oral motor control for specific speech targets. MAKING EXCELLENT PROGRESS - /m/ goal met 2. The pt will increase real word/name production of familiar people in his functional environment using pictorial cue for initial phoneme of words to decrease reliance on gesture, as measured by family/caregiver/ pt report and clinical judgement. MAKING EXCELLENT PROGRESS - demonstrating initial signs of independent production 3. NEW GOAL: The pt will produce please and thank you with 80% acc and min v/v cues to increase speech production of pragmatic language and maintain relationships. 4. NEW GOAL: The pt will copy his address and phone number with 100% accuracy to increase independence and improve ability to communicate critical personal information. 5. Given simple verbal instruction (e.g., Place the pencil on the paper), the pt will perform commands with 75% accuracy, min-mod v/v cues to improve auditory comprehension. House Carpenter Helper Goals 1. Using words, gestures, and body language, the pt will communicate his wants, needs, opinions, questions and ideas in his functional environment to highest functional level, as measured by family/ caregiver/pt report and clinical judgement. GOOD PROGRESS - oral vocabulary is expanding 2. Given oral presentation, point to words of functional objects with 75% accuracy and mod v/v cues to increase pt's ability to read in order to facilitate ability to communicate wants and needs. MAKING PROGRESS 3. Produce/Approximate simple functional words (e.g., names, greetings) to WFL with mod v/ v cues to increase real word production and pt's ability to communicate wants and needs. GOOD PROGRESS, but inconsistent production 4. Write name and contact info within functional accuracy to increase his ability to communicate personal information and increase independence. Treatment Activities Continued training of word please using segmentation. Pt able to produce individual phonemes in isolation. Addition of schwa and substitution of /v/ and ng for /z/ at end of word resulted in approximations puh-lease, puh-leave and puh-ling. During name writing task, Jackie recognized /z/ in his name. When shown phoneme /z/ and model please , he spontaneously repeated please x3. Writing: Given verbal instruction only, Jackie wrote his first and last names independently with 100% accuracy. Mildly extensive time required to recall letters; however, he did so independently and verbalized being quite pleased with his performance. Skilled education and feedback provided to promote home practice, particularly these next 2 weeks as the Clinician will be away on vacation. Pt/ CG agreed. Assessment Patient Response to Treatment Excellent Rehab Potential Good Impairments Identified Aphasia Expressive Language Oral Motor Reading Comprehension Written Expression Progress Towards Goals Good Progress Slow Progress Assessment of Overall Progress Improving Assessment of Improvement Jackie exhibited increased difficulty producing word please, though able to produce all phonemes in isolation and pairs. During writing task when indirectly instructed, he did produce spontaneous productions. Suspect stress and visual distractions interefered with his ability today, as compared to last session. Jackie demonstrated excellent carryover of name writing skills. Expect speed of task to improve with increased practice at home. Reviewed with Patient Goals Progress Being Made Home Exercise Program Patient/Caregiver Understanding Good Plan Comment Anticipate 4-6 months Frequency of Treatment Twice a Week Comment As scheduling allows Length of Session 45 Minutes Treatment Emphasis Next Session Production of please in isolation and with name production (Casey, please) Therapeutic Contents Client Education Expressive Language Training Home Exercise Program Oral Motor Training Receptive Language Training Written Expression Provided Patient/Caregiver Instruction Home Exercise Program Plan of Care Questions/Concerns Therapy Recommendations Continue with Current Program
--- NOTE | 2019-01-02 13:29 | ST.OPTN ---
Care Team Visit Care Team Role Provider Type Rebecca Bae DO Attending Provider Physician Family Provider Primary Care Provider Address: [address] [place] [address], [id number] SUPERVISOR PUMPING Treatment Note SUPERVISOR PU[employer]ING Treatment Note Start: 10/27/17 17:38 Freq: Status: Active Protocol: Document 01/02/19 12:27 FELIX (Rec: 01/02/19 12:36 FELIX [email or web address]) Speech Pathology Treatment Note Session Time Visit Start Time 10:36 Visit Stop Time 11:17 Total Visit Minutes 41 Visit Information Visit Number 12/05 Plan of Care Dates 11/14/18 - 02/07/19 Insurance Information [employer] Setting Treatment Setting Outpatient Care Visit Type Note Type Treatment Note Next Note Type Next Note Type Treatment Note General Information General Information 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 Left craniotomy with extraction of the clot performed at [facility]. Pt was dc/d to [facility] and returned home in November 2016. Moderate- Severe fluent aphasia. Subjective Identification Type Name Other Others Present Manager Financial Services Observations/Patient Presentation Jackie arrived with his Caregiver (CG) who was present throughout. Pt c/o vision and neck problems and difficulty moving right leg equally to left. Chief Complaint(s) Speech Language Rehab Expectation/Goals: Patient Goals Increase functional expressive & receptive speech and language skills Rehab Expectation/Goals: Parent/Guardian Maintain consistent HEP /Manager Financial Services Goals schedule; Conversation partner strategies Patient Knowledge/Awareness of SUPERVISOR PUMPING Role Good in Treatment Parent/Caretake Knowledge/Awareness of Good SUPERVISOR PUMPING Role in Treatment Patient/Caregiver Compliance with Home Good Exercise Program Comment Caregiver has demonstrated excellent understanding & follow through Objective Short Term Goals 1. Given familiar vowel sequence + initial labial phonemes (e.g., /m/, /p/, /b/) , pt will produce syllable sequence (e.g., May, Me, My, Mo, Moo) with 75% accuracy, min v/v cues to increase oral motor control for specific speech targets. MAKING EXCELLENT PROGRESS - /m/ goal met 2. The pt will increase real word/name production of familiar people in his functional environment using pictorial cue for initial phoneme of words to decrease reliance on gesture, as measured by family/caregiver/ pt report and clinical judgement. MAKING EXCELLENT PROGRESS - demonstrating initial signs of independent production 3. NEW GOAL: The pt will produce please and thank you with 80% acc and min v/v cues to increase speech production of pragmatic language and maintain relationships. 4. NEW GOAL: The pt will copy his address and phone number with 100% accuracy to increase independence and improve ability to communicate critical personal information. 5. Given simple verbal instruction (e.g., Place the pencil on the paper), the pt will perform commands with 75% accuracy, min-mod v/v cues to improve auditory comprehension. Fci Goals 1. Using words, gestures, and body language, the pt will communicate his wants, needs, opinions, questions and ideas in his functional environment to highest functional level, as measured by family/ caregiver/pt report and clinical judgement. GOOD PROGRESS - oral vocabulary is expanding 2. Given oral presentation, point to words of functional objects with 75% accuracy and mod v/v cues to increase pt's ability to read in order to facilitate ability to communicate wants and needs. MAKING PROGRESS 3. Produce/Approximate simple functional words (e.g., names, greetings) to WFL with mod v/ v cues to increase real word production and pt's ability to communicate wants and needs. GOOD PROGRESS, but inconsistent production 4. Write name and contact info within functional accuracy to increase his ability to communicate personal information and increase independence. Treatment Activities Re-educated pt RE consequences of stroke as well as effects of arthritis and age on ROM and vision status. Education provided orally and in writing with labeled pictures. Pt continues to express I don't understand and was encouraged to complete home exercises daily. Initiated training of words neck and eyes to help facilitate his ability to express his concerns and participate in medical conversations, particularly with PT which he has recently started. Using segmentation and oral motor modeling, the pt progressed to independent productions of neck and responded to questions (e.g., What is this? Where does it hurt?) with accurate single word production. Needs reinforcement. Assessment Patient Response to Treatment Excellent Rehab Potential Good Impairments Identified Aphasia Expressive Language Oral Motor Reading Comprehension Written Expression Progress Towards Goals Good Progress Slow Progress Assessment of Overall Progress Improving Assessment of Improvement Difficult to ascertain pt's level of comprehension of education provided, as he frequently asks the same questions during tx sessions and states I don't understand why. Visual aid provided for carryover of information to home. Jackie was responsive to training and progressed quickly to articulating neck and answering related questions with single word responses. Requires reinforcement. Reviewed with Patient Goals Progress Being Made Home Exercise Program Patient/Caregiver Understanding Good Plan Comment Anticipate 4-6 months Frequency of Treatment Twice a Week Comment As scheduling allows Length of Session 45 Minutes Treatment Emphasis Next Session Production of please in isolation and with name production (Casey, please) Therapeutic Contents Client Education Expressive Language Training Home Exercise Program Oral Motor Training Receptive Language Training Written Expression Provided Patient/Caregiver Instruction Home Exercise Program Plan of Care Questions/Concerns Therapy Recommendations Continue with Current Program
--- NOTE | 2019-01-04 18:16 | ST.OPTN ---
Care Team Visit Care Team Role Provider Type Rebecca Bae DO Attending Provider Physician Family Provider Primary Care Provider Address: [address] [place] [address], [id number] RADIO ANNOUNCER Treatment Note RADIO ANNOUNCER Treatment Note Start: 10/27/17 17:38 Freq: Status: Active Protocol: Document 01/04/19 18:05 FELIX (Rec: 01/04/19 18:16 FELIX [email or web address]) Speech Pathology Treatment Note Session Time Visit Start Time 10:32 Visit Stop Time 11:19 Total Visit Minutes 45 Visit Information Visit Number 01/04 Plan of Care Dates 11/14/18 - 02/07/19 Insurance Information [employer] Setting Treatment Setting Outpatient Care Visit Type Note Type Treatment Note Next Note Type Next Note Type Treatment Note General Information General Information 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 Left craniotomy with extraction of the clot performed at [facility]. Pt was dc/d to [facility] and returned home in November 2016. Moderate- Severe fluent aphasia. Subjective Identification Type Name Other Others Present Eating Disorder Psychologist Observations/Patient Presentation Jackie arrived with his Caregiver (CG) who was present throughout. CG reported poor compliance with HEP recently and regression of carryover in use of targeted words, particularly use of names with significant individuals. Chief Complaint(s) Speech Language Rehab Expectation/Goals: Patient Goals Increase functional expressive & receptive speech and language skills Rehab Expectation/Goals: Parent/Guardian Maintain consistent HEP /Eating Disorder Psychologist Goals schedule; Conversation partner strategies Patient Knowledge/Awareness of RADIO ANNOUNCER Role Good in Treatment Parent/Caretake Knowledge/Awareness of Good RADIO ANNOUNCER Role in Treatment Patient/Caregiver Compliance with Home Good Exercise Program Comment Caregiver has demonstrated excellent understanding & follow through Objective Short Term Goals 1. Given familiar vowel sequence + initial labial phonemes (e.g., /m/, /p/, /b/) , pt will produce syllable sequence (e.g., May, Me, My, Mo, Moo) with 75% accuracy, min v/v cues to increase oral motor control for specific speech targets. MAKING EXCELLENT PROGRESS - /m/ goal met 2. The pt will increase real word/name production of familiar people in his functional environment using pictorial cue for initial phoneme of words to decrease reliance on gesture, as measured by family/caregiver/ pt report and clinical judgement. MAKING EXCELLENT PROGRESS - demonstrating initial signs of independent production 3. NEW GOAL: The pt will produce please and thank you with 80% acc and min v/v cues to increase speech production of pragmatic language and maintain relationships. 4. NEW GOAL: The pt will copy his address and phone number with 100% accuracy to increase independence and improve ability to communicate critical personal information. 5. Given simple verbal instruction (e.g., Place the pencil on the paper), the pt will perform commands with 75% accuracy, min-mod v/v cues to improve auditory comprehension. Transitional Nurse Goals 1. Using words, gestures, and body language, the pt will communicate his wants, needs, opinions, questions and ideas in his functional environment to highest functional level, as measured by family/ caregiver/pt report and clinical judgement. GOOD PROGRESS - oral vocabulary is expanding 2. Given oral presentation, point to words of functional objects with 75% accuracy and mod v/v cues to increase pt's ability to read in order to facilitate ability to communicate wants and needs. MAKING PROGRESS 3. Produce/Approximate simple functional words (e.g., names, greetings) to WFL with mod v/ v cues to increase real word production and pt's ability to communicate wants and needs. GOOD PROGRESS, but inconsistent production 4. Write name and contact info within functional accuracy to increase his ability to communicate personal information and increase independence. Treatment Activities Skilled education and feedback provided to pt/CG RE POC and importance of home practice and carryover of skills to functional use in order to continue skilled intervention. Information was provided to verbally, in writing and with diagram visual aid to increase pt's comprehension. When asked if he understood information provided, he consistently replied, I don't know, which is his common response and typically indicates at least some level of understanding. Initiated training of production of this RADIO ANNOUNCER's name in order to evaluate pt's ability to carryover learned names to functional use (i.e., greeting RADIO ANNOUNCER by name in the clinic). Using oral motor models and segmentation, the pt produced syllables /lI/ and /bi/ in isolation with up to 8 independent productions of each. Pt approximated Tracey with Levvy and Lebeed. Needs reinforcement. Pt was instructed to practice this and other name production with CG at home, and he agreed. Assessment Patient Response to Treatment Good Rehab Potential Fair Impairments Identified Aphasia Expressive Language Oral Motor Reading Comprehension Written Expression Progress Towards Goals Good Progress Slow Progress Assessment of Overall Progress Improving Assessment of Improvement Jackie appeared to understand at least the general idea of information provided today RE POC and need for progress to continue skilled intervention. Needs reinforcement. He was responsive to phoneme and syllable production consistent with progress made in past. Also needs reinforcement. Plan to monitor carryover usage of RADIO ANNOUNCER's name to assess pt's potential for maintaining learned skills and consistency/motivation to use learned vocabulary for functional communication in order to help determine prognosis and guide POC. Reviewed with Patient Goals Progress Being Made Home Exercise Program Patient/Caregiver Understanding Good Plan Comment Anticipate 4-6 months Frequency of Treatment Twice a Week Comment As scheduling allows Length of Session 45 Minutes Treatment Emphasis Next Session Continue training of RADIO ANNOUNCER's name; names in 2-word phrases Therapeutic Contents Client Education Expressive Language Training Home Exercise Program Oral Motor Training Receptive Language Training Written Expression Provided Patient/Caregiver Instruction Home Exercise Program Plan of Care Questions/Concerns Therapy Recommendations Continue with Current Program
--- NOTE | 2019-01-09 16:44 | ST.OPTN ---
Care Team Visit Care Team Role Provider Type Rebecca Bae DO Attending Provider Physician Family Provider Primary Care Provider Address: [address] [place] [address], [id number] GLASS FURNACE TENDER Treatment Note GLASS FURNACE TENDER Treatment Note Start: 10/27/17 17:38 Freq: Status: Active Protocol: Document 01/09/19 16:34 FELIX (Rec: 01/09/19 16:43 FELIX [email or web address]) Speech Pathology Treatment Note Session Time Visit Start Time 10:30 Visit Stop Time 11:15 Total Visit Minutes 45 Visit Information Visit Number 02/04 Plan of Care Dates 11/14/18 - 02/07/19 Insurance Information [employer] Setting Treatment Setting Outpatient Care Visit Type Note Type Treatment Note Next Note Type Next Note Type Treatment Note General Information General Information 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 Left craniotomy with extraction of the clot performed at [facility]. Pt was dc/d to [facility] and returned home in November 2016. Moderate- Severe fluent aphasia. Subjective Identification Type Name Other Others Present Manager Money Observations/Patient Presentation Jackie arrived with his who was present throughout and attended to discuss POC. Chief Complaint(s) Speech Language Rehab Expectation/Goals: Patient Goals Increase functional expressive & receptive speech and language skills Rehab Expectation/Goals: Parent/Guardian Maintain consistent HEP /Manager Money Goals schedule; Conversation partner strategies Patient Knowledge/Awareness of GLASS FURNACE TENDER Role Good in Treatment Parent/Caretake Knowledge/Awareness of Good GLASS FURNACE TENDER Role in Treatment Patient/Caregiver Compliance with Home Good Exercise Program Comment Caregiver has demonstrated excellent understanding & follow through Objective Short Term Goals 1. Given familiar vowel sequence + initial labial phonemes (e.g., /m/, /p/, /b/) , pt will produce syllable sequence (e.g., May, Me, My, Mo, Moo) with 75% accuracy, min v/v cues to increase oral motor control for specific speech targets. MAKING EXCELLENT PROGRESS - /m/ goal met 2. The pt will increase real word/name production of familiar people in his functional environment using pictorial cue for initial phoneme of words to decrease reliance on gesture, as measured by family/caregiver/ pt report and clinical judgement. MAKING EXCELLENT PROGRESS - demonstrating initial signs of independent production 3. NEW GOAL: The pt will produce please and thank you with 80% acc and min v/v cues to increase speech production of pragmatic language and maintain relationships. 4. NEW GOAL: The pt will copy his address and phone number with 100% accuracy to increase independence and improve ability to communicate critical personal information. 5. Given simple verbal instruction (e.g., Place the pencil on the paper), the pt will perform commands with 75% accuracy, min-mod v/v cues to improve auditory comprehension. Communications Executive Goals 1. Using words, gestures, and body language, the pt will communicate his wants, needs, opinions, questions and ideas in his functional environment to highest functional level, as measured by family/ caregiver/pt report and clinical judgement. GOOD PROGRESS - oral vocabulary is expanding 2. Given oral presentation, point to words of functional objects with 75% accuracy and mod v/v cues to increase pt's ability to read in order to facilitate ability to communicate wants and needs. MAKING PROGRESS 3. Produce/Approximate simple functional words (e.g., names, greetings) to WFL with mod v/ v cues to increase real word production and pt's ability to communicate wants and needs. GOOD PROGRESS, but inconsistent production 4. Write name and contact info within functional accuracy to increase his ability to communicate personal information and increase independence. Treatment Activities Skilled education and feedback provided to pt/ RE POC, progress made to date, and tx goals. Agreed to target pt's production of GLASS FURNACE TENDER's name with assessment of his ability to use her name functionally as measurement of potential for carryover. Discussed also need for carryover of other name use (, son, & caregiver's names) in functional conversations as demonstration of potential for continued benefit from skilled intervention. Pt and both verbalized agreement. Continued training of pt's production of GLASS FURNACE TENDER's name using segmentation techniques. Pt achieved ability to produce Tracey x5 independent productions. Was also able to produce hi but unable to produce phrase hi Tracey. Following this attempt, pt struggled significantly to again produce GLASS FURNACE TENDER's name. With segmentation and direct models, he achieved approximation laybean, which , upon repetition did evenually evolve into Tracey x1 clear production. Needs reinforcement. Assessment Patient Response to Treatment Good Rehab Potential Fair Impairments Identified Aphasia Expressive Language Oral Motor Reading Comprehension Written Expression Progress Towards Goals Good Progress Slow Progress Assessment of Overall Progress Improving Assessment of Improvement Continue to train pt in production of GLASS FURNACE TENDER's name and carryover into functional use/ phrases. Reviewed with Patient Goals Progress Being Made Home Exercise Program Patient/Caregiver Understanding Good Plan Comment Anticipate 4-6 months Frequency of Treatment Twice a Week Comment As scheduling allows Length of Session 45 Minutes Treatment Emphasis Next Session Continue training of GLASS FURNACE TENDER's name; names in 2-word phrases Therapeutic Contents Client Education Expressive Language Training Home Exercise Program Oral Motor Training Receptive Language Training Written Expression Provided Patient/Caregiver Instruction Home Exercise Program Plan of Care Questions/Concerns Therapy Recommendations Continue with Current Program
--- NOTE | 2019-01-11 11:30 | ST.OPTN ---
Care Team Visit Care Team Role Provider Type Rebecca Bae DO Attending Provider Physician Family Provider Primary Care Provider Address: [address] [place] [address], [id number] POULTRY PACKER Treatment Note POULTRY PACKER Treatment Note Start: 10/27/17 17:38 Freq: Status: Active Protocol: Document 01/11/19 11:20 FELIX (Rec: 01/11/19 11:30 FELIX [id number]) Speech Pathology Treatment Note Session Time Visit Start Time 10:30 Visit Stop Time 11:15 Total Visit Minutes 45 Visit Information Visit Number 03/07 Plan of Care Dates 11/14/18 - 02/07/19 Insurance Information [employer] Setting Treatment Setting Outpatient Care Visit Type Note Type Treatment Note Next Note Type Next Note Type Progress Note General Information General Information 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 Left craniotomy with extraction of the clot performed at [facility]. Pt was dc/d to [facility] and returned home in November 2016. Moderate- Severe fluent aphasia. Subjective Identification Type Name Other Others Present [employer] Libr[employer] Observations/Patient Presentation Jackie arrived with his caregiver who was present throughout and brought Jackie 's iPad, on which was a recording of this POULTRY PACKER training him in production of the POULTRY PACKER' s name. This video had been taken by his during last session. The caregiver reported that Jackie has been using the video to practice at home and that this has been very helpful. Chief Complaint(s) Speech Language Rehab Expectation/Goals: Patient Goals Increase functional expressive & receptive speech and language skills Rehab Expectation/Goals: Parent/Guardian Maintain consistent HEP /[employer] Librarian Goals schedule; Conversation partner strategies Patient Knowledge/Awareness of POULTRY PACKER Role Good in Treatment Parent/Caretake Knowledge/Awareness of Good POULTRY PACKER Role in Treatment Patient/Caregiver Compliance with Home Good Exercise Program Comment Caregiver has demonstrated excellent understanding & follow through Objective Short Term Goals 1. Given familiar vowel sequence + initial labial phonemes (e.g., /m/, /p/, /b/) , pt will produce syllable sequence (e.g., May, Me, My, Mo, Moo) with 75% accuracy, min v/v cues to increase oral motor control for specific speech targets. MAKING EXCELLENT PROGRESS - /m/ goal met 2. The pt will increase real word/name production of familiar people in his functional environment using pictorial cue for initial phoneme of words to decrease reliance on gesture, as measured by family/caregiver/ pt report and clinical judgement. MAKING EXCELLENT PROGRESS - demonstrating initial signs of independent production 3. NEW GOAL: The pt will produce please and thank you with 80% acc and min v/v cues to increase speech production of pragmatic language and maintain relationships. 4. NEW GOAL: The pt will copy his address and phone number with 100% accuracy to increase independence and improve ability to communicate critical personal information. 5. Given simple verbal instruction (e.g., Place the pencil on the paper), the pt will perform commands with 75% accuracy, min-mod v/v cues to improve auditory comprehension. Melon Packer Goals 1. Using words, gestures, and body language, the pt will communicate his wants, needs, opinions, questions and ideas in his functional environment to highest functional level, as measured by family/ caregiver/pt report and clinical judgement. GOOD PROGRESS - oral vocabulary is expanding 2. Given oral presentation, point to words of functional objects with 75% accuracy and mod v/v cues to increase pt's ability to read in order to facilitate ability to communicate wants and needs. MAKING PROGRESS 3. Produce/Approximate simple functional words (e.g., names, greetings) to WFL with mod v/ v cues to increase real word production and pt's ability to communicate wants and needs. GOOD PROGRESS, but inconsistent production 4. Write name and contact info within functional accuracy to increase his ability to communicate personal information and increase independence. Treatment Activities Continued training of POULTRY PACKER's name using segmentation and direct oral motor modeling. Two additional training videos were created on the pt's iPad , by request and with permission of the pt/caregiver . Jackie independently accessed and practiced target speech using the videos. He successfully produced syllables /lI/ and /bi/ independently. He produced Tracey with ~15% accuracy. Errors were consistently additions of /l/ and /d/, resulting in [place]. Employed errorless learning technique to attempt to prevent incorrect practice and reinforcement with little effectiveness. Skilled feedback provided to pt and caregiver. Assessment Patient Response to Treatment Good Rehab Potential Fair Impairments Identified Aphasia Expressive Language Oral Motor Reading Comprehension Written Expression Progress Towards Goals Good Progress Slow Progress Assessment of Overall Progress Improving Assessment of Improvement Pt is making progress toward production of POULTRY PACKER's name, although consistently adding phonemes which results in a distortion. Per caregiver report and demonstration in today's session, the pt is highly responsive to practicing speech with use of training videos, which is expected to increase frequency of home practice and promote carryover. Reviewed with Patient Goals Progress Being Made Home Exercise Program Patient/Caregiver Understanding Good Plan Comment Anticipate 4-6 months Frequency of Treatment Twice a Week Comment As scheduling allows Length of Session 45 Minutes Treatment Emphasis Next Session Continue training of POULTRY PACKER's name; names in 2-word phrases Therapeutic Contents Client Education Expressive Language Training Home Exercise Program Oral Motor Training Receptive Language Training Written Expression Provided Patient/Caregiver Instruction Home Exercise Program Plan of Care Questions/Concerns Therapy Recommendations Continue with Current Program
--- NOTE | 2019-01-23 11:14 | ST.OPTN ---
Care Team Visit Care Team Role Provider Type Rebecca Bae DO Attending Provider Physician Family Provider Primary Care Provider Address: [address] [place] [address], [id number] GRADE [employer] CENTER MARKER Treatment Note GRADE [employer] CENTER MARKER Treatment Note Start: 10/27/17 17:38 Freq: Status: Active Protocol: Document 01/23/19 11:12 FELIX (Rec: 01/23/19 11:14 FELIX [email or web address]) Speech Pathology Treatment Note Visit Type Note Type Administrative Note Subjective Observations/Patient Presentation The pt arrived on time with his caregiver, who expressed concern regarding swelling and redness on the pt's foot. It was agreed that Urgent Care should be pursued, and the ST session was cancelled for this purpose. The visit will be rescheduled.
--- NOTE | 2019-01-25 12:40 | ST.OPTN ---
Care Team Visit Care Team Role Provider Type Rebecca Bae DO Attending Provider Physician Family Provider Primary Care Provider Address: [address] [place] [address], [id number] SHANK PAPERER Treatment Note SHANK PAPERER Treatment Note Start: 10/27/17 17:38 Freq: Status: Active Protocol: Document 01/25/19 12:25 FELIX (Rec: 01/25/19 12:39 FELIX [email or web address]) Speech Pathology Treatment Note Session Time Visit Start Time 10:30 Visit Stop Time 11:15 Total Visit Minutes 45 Visit Information Visit Number 07/07 Plan of Care Dates 01/25/19 - 04/20/19 Insurance Information [employer] Setting Treatment Setting Outpatient Care Visit Type Note Type Progress Note Next Note Type Next Note Type Treatment Note General Information General Information 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 Left craniotomy with extraction of the clot performed at [facility]. Pt was dc/d to [facility] and returned home in November 2016. Moderate- Severe fluent aphasia. Subjective Observations/Patient Presentation The pt arrived on time with his caregiver. Pt saw doctor yesterday about foot and is on antibiotics. Chief Complaint(s) Language Rehab Expectation/Goals: Patient Goals Improve functional communication skills Patient Knowledge/Awareness of SHANK PAPERER Role Good in Treatment Objective Short Term Goals 1. Given familiar vowel sequence + initial labial phonemes (e.g., /m/, /p/, /b/) , pt will produce syllable sequence (e.g., May, Me, My, Mo, Moo) with 75% accuracy, min v/v cues to increase oral motor control for specific speech targets. MAKING EXCELLENT PROGRESS - /m/ goal met 2. The pt will increase real word/name production of familiar people in his functional environment using pictorial cue for initial phoneme of words to decrease reliance on gesture, as measured by family/caregiver/ pt report and clinical judgement. MAKING EXCELLENT PROGRESS - demonstrating initial signs of independent production 3. The pt will produce please and thank you with 80% acc and min v/v cues to increase speech production of pragmatic language and maintain relationships. 4. The pt will copy his address and phone number with 100% accuracy to increase independence and improve ability to communicate critical personal information. 5. Given simple verbal instruction (e.g., Place the pencil on the paper), the pt will perform commands with 75% accuracy, min-mod v/v cues to improve auditory comprehension. Residential Goals 1. Using words, gestures, and body language, the pt will communicate his wants, needs, opinions, questions and ideas in his functional environment to highest functional level, as measured by family/ caregiver/pt report and clinical judgement. GOOD PROGRESS - oral vocabulary is expanding 2. Given oral presentation, point to words of functional objects with 75% accuracy and mod v/v cues to increase pt's ability to read in order to facilitate ability to communicate wants and needs. MAKING PROGRESS 3. Produce/Approximate simple functional words (e.g., names, greetings) to WFL with mod v/ v cues to increase real word production and pt's ability to communicate wants and needs. GOOD PROGRESS, but inconsistent production 4. Write name and contact info within functional accuracy to increase his ability to communicate personal information and increase independence. Treatment Activities Continued training of SHANK PAPERER's name using segmentation, writing task, and direct oral motor modeling. Pt exhibited sifnificant difficulty today, unable to produce name. Errors consistently included additions or substitutions of phonemes (e.g., Lilbeen Lilving). Given pictures of family members and caregiver and phonemic cues, the pt named individuals with ~55% accuracy. This was not effective in promoting training of SHANK PAPERER's name. Pt became highly frustrated and skilled feedback provided. Assessment Patient Response to Treatment Good Rehab Potential Fair Impairments Identified Aphasia Expressive Language Oral Motor Reading Comprehension Written Expression Progress Towards Goals Good Progress Slow Progress Assessment of Overall Progress Improving Assessment of Improvement Over the course of treatment, the pt has progressed in ability to name important people in his life (e.g., , son, caregiver) in structured treatment tasks. Carryover of name use to functional settings has been limited, and caregiver and report inconsistent participation from the pt in HEP tasks. Suspect that the pt may be reaching his highest level of function. However, it was agreed between pt, , caregiver and SHANK PAPERER to target production of the SHANK PAPERER's name and use of her name in spontaneous conversations (e.g ., greetings) in the clinic in order to better assess the pt 's ability to carry over targeted language to functional settings and guide POC. Will continue 2-4 sessions of trainining in production of SHANK PAPERER's name and use of name in functional settings. Determination of POC to be determined pending outcome. Reviewed with Patient Goals Progress Being Made Home Exercise Program Patient/Caregiver Understanding Good Plan Amount of Therapy Recommended 1-2 Months Frequency of Treatment Twice a Week Length of Session 45 Minutes Treatment Emphasis Next Session Continue training of SHANK PAPERER's name; names in 2-word phrases Therapeutic Contents Client Education Expressive Language Training Home Exercise Program Oral Motor Training Receptive Language Training Written Expression Provided Patient/Caregiver Instruction Home Exercise Program Plan of Care Questions/Concerns Therapy Recommendations Continue with Current Program
--- NOTE | 2019-02-01 14:10 | ST.OPTN ---
Care Team Visit Care Team Role Provider Type Rebecca Bae DO Attending Provider Physician Family Provider Primary Care Provider Address: [address] [place] [address], [id number] RECYCLING OPERATIONS MANAGER Treatment Note RECYCLING OPERATIONS MANAGER Treatment Note Start: 10/27/17 17:38 Freq: Status: Active Protocol: Document 02/01/19 13:55 FELIX (Rec: 02/01/19 14:10 FELIX [email or web address]) Speech Pathology Treatment Note Session Time Visit Start Time 10:30 Visit Stop Time 11:15 Total Visit Minutes 45 Visit Information Visit Number 09/04 Plan of Care Dates 01/25/19 - 04/20/19 Insurance Information [employer] Setting Treatment Setting Outpatient Care Visit Type Note Type Progress Note Next Note Type Next Note Type Treatment Note General Information General Information 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 Left craniotomy with extraction of the clot performed at [facility]. Pt was dc/d to [facility] and returned home in November 2016. Moderate- Severe fluent aphasia. Subjective Observations/Patient Presentation The pt arrived on time with his caregiver who was present during session. The pt appeared downspirited today. Only responded Yeah when the clinician greeted him. When asked how he was feeling and probed with questions, he only responded, I don't know. The caregiver informed that the pt has been quite angry at home recently and appeared not to know that he had an appointment today. While the pt often talks about concerns and frustrations during ST sessions, today he was quiet and seemingly downspirited throughout the session. Chief Complaint(s) Language Rehab Expectation/Goals: Patient Goals Improve functional communication skills Patient Knowledge/Awareness of RECYCLING OPERATIONS MANAGER Role Good in Treatment Objective Short Term Goals 1. Given familiar vowel sequence + initial labial phonemes (e.g., /m/, /p/, /b/) , pt will produce syllable sequence (e.g., May, Me, My, Mo, Moo) with 75% accuracy, min v/v cues to increase oral motor control for specific speech targets. MAKING EXCELLENT PROGRESS - /m/ /p/ Advanced to /l/ /s/ - GOAl MET 2. The pt will increase real word/name production of familiar people in his functional environment using pictorial cue for initial phoneme of words to decrease reliance on gesture, as measured by family/caregiver/ pt report and clinical judgement. MAKING EXCELLENT PROGRESS - demonstrating initial signs of independent production 3. The pt will produce please and thank you with 80% acc and min v/v cues to increase speech production of pragmatic language and maintain relationships. 4. The pt will copy his address and phone number with 100% accuracy to increase independence and improve ability to communicate critical personal information. 5. Given simple verbal instruction (e.g., Place the pencil on the paper), the pt will perform commands with 75% accuracy, min-mod v/v cues to improve auditory comprehension. [employer] Goals 1. Using words, gestures, and body language, the pt will communicate his wants, needs, opinions, questions and ideas in his functional environment to highest functional level, as measured by family/ caregiver/pt report and clinical judgement. GOOD PROGRESS - oral vocabulary is expanding 2. Given oral presentation, point to words of functional objects with 75% accuracy and mod v/v cues to increase pt's ability to read in order to facilitate ability to communicate wants and needs. MAKING PROGRESS 3. Produce/Approximate simple functional words (e.g., names, greetings) to WFL with mod v/ v cues to increase real word production and pt's ability to communicate wants and needs. GOOD PROGRESS, but inconsistent production 4. Write name and contact info within functional accuracy to increase his ability to communicate personal information and increase independence. Treatment Activities Attempted to converse with pt about his feelings, his understanding about ST POC, and if he had any questions, thoughts, or concerns. He only repeated, I don't know throughout the discussion. Words of encouragement were offered, including skilled feedback on progress made in Speech Therapy to date. PT completed tasks he has done well with in previous sessions . These were targeted to assist pt in recognizing progress, to encourage him, and to promote participation in HEP tasks. Pt wrote his first/last names with 2 verbal prompts only. Presented for comparison written work from early in course of therapy (last year) when pt was first attempting to write his name. The pt said little in response. Given vowel sequence familiar to the pt, he ordered vowels in correct sequence independently and recited phonemes with 97% accuracy. Given phonemes /m/ /p/ /l/ and /s/ (the latter not previously targeted), the pt produced CV syllables with 86% accuracy with RECYCLING OPERATIONS MANAGER modeling fading to visual cues only. Given pictures of familiar faces (family and caregiver) and phonemic cues, the pt produced names with 88% accuracy. Pt produced approximation of son's name ( Joyce) inititally, transitioning to correct production after several incorrect productions. Discussed POC with pt/CG and agreed to continue tx for 2 more sessions, which have already been scheduled. This RECYCLING OPERATIONS MANAGER will call and discuss with pt's . Pt/CG were in agreement. Assessment Patient Response to Treatment Good Rehab Potential Fair Impairments Identified Aphasia Expressive Language Oral Motor Reading Comprehension Written Expression Progress Towards Goals Good Progress Slow Progress Assessment of Overall Progress Improving Assessment of Improvement The pt appeared very downspirited today. Unclear of the reason, although it seemed to hinge at least in part on discussions of continuing or discontinuing Speech Therapy. The pt did not participate in conversations beyond stating, I don't know. He did well in tasks with which he has had recent success, although this did not seem to cheer the pt. Will discuss POC with pt's via phone. Plan to fulfill 2 scheduled sessions with possible dc at that time. Reviewed with Patient Goals Progress Being Made Home Exercise Program Patient/Caregiver Understanding Good Plan Amount of Therapy Recommended 1-2 Months Frequency of Treatment Twice a Week Length of Session 45 Minutes Treatment Emphasis Next Session Continue training of names in 2-word phrases; body parts Therapeutic Contents Client Education Expressive Language Training Home Exercise Program Oral Motor Training Receptive Language Training Written Expression Provided Patient/Caregiver Instruction Home Exercise Program Plan of Care Questions/Concerns Therapy Recommendations Continue with Current Program
--- NOTE | 2019-02-06 17:10 | ST.OPDS ---
Care Team Visit Care Team Role Provider Type Rebecca Bae DO Attending Provider Physician Family Provider Primary Care Provider Address: [address] [place] [address], [id number] ICT EDUCATOR Treatment Note ICT EDUCATOR Treatment Note Start: 10/27/17 17:38 Freq: Status: Active Protocol: Document 02/06/19 16:42 FELIX (Rec: 02/06/19 17:09 [email or web address]) Speech Pathology Treatment Note Session Time Visit Start Time 12:30 Visit Stop Time 13:15 Total Visit Minutes 45 Visit Information Visit Number 10/05 Plan of Care Dates 01/25/19 - 04/20/19 Insurance Information [employer] Setting Treatment Setting Outpatient Care Visit Type Note Type Discharge Summary General Information General Information 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 Left craniotomy with extraction of the clot performed at [facility]. Pt was dc/d to [facility] and returned home in November 2016. Moderate- Severe fluent aphasia. Subjective Observations/Patient Presentation The pt arrived on time with his who was present during session. The pt appeared downspirited. His reported increased apathy and frustration with visual impairments. Chief Complaint(s) Language Rehab Expectation/Goals: Patient Goals Improve functional communication skills Patient Knowledge/Awareness of ICT EDUCATOR Role Good in Treatment Objective Short Term Goals 1. Given familiar vowel sequence + initial phonemes /m /, /p/, /b/, /l/, and /s/ pt will produce syllable sequence (e.g., May, Me, My, Mo, Moo) with 75% accuracy, min v/v cues to increase oral motor control for specific speech targets. - /m/ /p/ Advanced to /l/ /s/ - GOAl MET 2. The pt will increase real word/name production of familiar people in his functional environment using pictorial cue for initial phoneme of words to decrease reliance on gesture, as measured by family/caregiver/ pt report and clinical judgement. PROGRESS MADE; 30% OF GOAL MET 3. The pt will produce please and thank you with 80% acc and min v/v cues to increase speech production of pragmatic language and maintain relationships. 50% OF GOAL MET 4. The pt will copy his address and phone number with 100% accuracy to increase independence and improve ability to communicate critical personal information. GOAL DISCONTINUED. PT ABLE TO WRITE FIRST AND LAST NAMES INDEPENDENTLY. 5. Given simple verbal instruction (e.g., Place the pencil on the paper), the pt will perform commands with 75% accuracy, min-mod v/v cues to improve auditory comprehension. GOAL NOT MET. Centrifuge Separator Tender Goals 1. Using words, gestures, and body language, the pt will communicate his wants, needs, opinions, questions and ideas in his functional environment to highest functional level, as measured by family/ caregiver/pt report and clinical judgement. HIGHEST FUNCTIONAL LEVEL MET 2. Given oral presentation, point to words of functional objects with 75% accuracy and mod v/v cues to increase pt's ability to read in order to facilitate ability to communicate wants and needs. GOAL NOT MET. PT UNABLE TO RELIABLY DISTINGUISH BETWEEN GRAPHEMES/WORDS. 3. Produce/Approximate simple functional words (e.g., names, greetings) to WFL with mod v/ v cues to increase real word production and pt's ability to communicate wants and needs. INCONSISTENT PRODUCTION. 4. Write name and contact info within functional accuracy to increase his ability to communicate personal information and increase independence. 50% GOAL MET. PT INDEPENDENT IN WRITING FIRST/ LAST NAME. Treatment Activities Consulted with pt/spouse RE POC. Skilled education and feedback was provided RE progress to date and reduced carryover with tx targets in the pt's functional environment. The pt appears to have reached a plateau and may have reached his highest functional level. The pt provided very little verbal feedback in the discussion, responding with I don't know or I don't care to all questions. The pt's was in agreement with recommendation to discharge from skilled intervention at this time, understanding that if significant changes, either positive or negative, were demonstrated by the pt in the future, skilled intervention could again be pursued. The pt was strongly recommended to continue his home practice with his caregiver and family and to participate in communicative opportunities whenever possible. Assessment Patient Response to Treatment Good Rehab Potential Fair Impairments Identified Aphasia Expressive Language Oral Motor Reading Comprehension Written Expression Progress Towards Goals Slow Progress Appropriate for Discharge Assessment of Overall Progress Plateaued Assessment of Improvement The pt has reached a plateau in his communication skills with little to no significant benefit gained from skilled intervention. Over the course of treatment, the pt has been a delight to work with and has exhibited determination and strong endurance in therapeutic tasks . Expressive language skills have improved from speaking mostly in numbers and jargon at SOC, to speaking with increased numbers of real words. His language continues to reflect moderate-severe fluent aphasia, placing the burden of communication on his communication partners. However, comprehension of basic communication is quite strong, and the pt is able to communicate basic wants and needs through a combination of words, vocal inflection, and gestures. His frustration increases greatly when attempting to communicate wants/needs/ideas/concerns of moderate or greater complexity , which has been reported to cause friction in his home environment. He does have a supportive family and caregiver. During treament, the pt has been responsive to visual and verbal cuing, phonemic cuing, segmentation of words and syllables, and building syllables/words from a base of sequenced vowel phonemes. Automatic speech has improved moderately; he is able to count to 6 independently with good consistency, and to recite the alphabet to ~F, greater if singing the Alphabet Song. He is able to say and write his own name mostly independently, and to say names of significant people in his life, often with only initial phonemic cuing. New words continue to emerge spontaneously, and the pt's and caregiver report that he actively engages in conversations within his home environment. The pt has reached a plateau in progress, likely influenced by discomfort from other medical complexities (e.g., vision deficits, pain at his cervical spine area for which he is being treated by PT, complications of diabetes such as wounds at his foot/leg, etc.), and discharge from skilled intervention is appropriate at this time. Reviewed with Patient Goals Progress Being Made Home Exercise Program Patient/Caregiver Understanding Good Plan Therapeutic Contents Client Education Expressive Language Training Home Exercise Program Oral Motor Training Receptive Language Training Written Expression Provided Patient/Caregiver Instruction Home Exercise Program Plan of Care Questions/Concerns Therapy Recommendations Discharge to Home Exercise Program
== END 2019-02-08 16:28 | disposition home or self-care (01) ==
LOC: SP 12:30
PROVIDERS: Family Provider Family Medicine; PCP Family Medicine; Visit Provider Family Medicine
DX: I63.9 Cerebral infarction, unspecified (principal)
CPT/HCPCS: 92507; 97110; 97530

== ENCOUNTER → 2019-02-09 09:20 | Outpatient (CLI) | payer MEDICARE, MEDICAID, SELFPAY ==
[2019-02-09 11:51] LABS: Prostate Specific Antigen 1.63 ng/mL (0.10-4.00)
== END ==
PROVIDERS: PCP Family Medicine; Visit Provider Urology
DX: R97.20 Elevated prostate specific antigen [PSA] (principal)
CPT/HCPCS: 36415; 84153

== ENCOUNTER 2019-02-23 10:28 | Emergency (ER) | payer MEDICARE, MEDICAID, SELFPAY ==
[2019-02-23 10:31] VITALS: BP 112/78; PULSE 67; RESP 18; TEMP 36.2; O2SAT 97; BMI 40.2
--- NOTE | 2019-02-23 10:40 | DI.RAD.S_ITS ---
PROCEDURE: XR ACUTE ABDOMEN SERIES INDICATIONS: constipation for 4 days. TECHNIQUE: One view chest and two views of the abdomen were acquired. COMPARISON: None. FINDINGS: Surgical changes and devices: None. Chest: Lungs are clear. Heart size is normal. No pleural effusions. No pneumoperitoneum. Abdomen: Bowel gas pattern is nonobstructive. Mild to moderate amount of fecal matter throughout the colon is seen. No suspicious calcifications. Visualized solid organ contours appear normal. Bones: No suspicious bony lesions. IMPRESSION: No acute cardiopulmonary pathology. Mild constipation. No gross free air. Dictated by: Frantz Montgomery M.D. on 02/23/2019 at 11:16 Approved by: Frantz Montgomery M.D. on 02/23/2019 at 11:16
[2019-02-23 11:01] LABS: Add Manual Diff / Slide Review NO; Basophils Absolute Auto 0 /uL (0-100); Basophils Percent Auto 0.5 % (0-2); Eosinophils Absolute Auto 200 /uL (0-450); Eosinophils Percent Auto 3.1 % (2-4); Hematocrit 41.7 % (41-53); Hemoglobin 13.9 g/dL (13.5-17.5); Lymphocytes Absolute Auto 2100 /uL (1100-4500); Mean Corpuscular HGB Conc 33.2 % (30-36); Mean Corpuscular Hemoglobin 28.4 PG (26-34); Mean Corpuscular Volume 85.3 fL (80-100); Monocytes Absolute Auto 600 /uL (0-900); Monocytes Percent Auto 7.5 % (3-14); Neutrophils Absolute Auto 4800 /uL (1500-7000); Neutrophils Percent Auto 61.9 % (50-75); Platelet Count 209 X10^3/uL (150-400); Red Blood Cell Count 4.88 X10^6/uL (4.5-5.9); Red Cell Distribution Width 14.7 % (11.6-14.8); White Blood Cell Count 7.8 X10^3/uL (4.5-11.0)
[2019-02-23 11:08] LABS: Prothrombin Time 11.5 SECONDS (10.1-12.7)
[2019-02-23 11:10] LABS: PTT Partial Thromboplastin Tim 37 SECONDS (26.4-36.2)
[2019-02-23 11:11] LABS: Alanine Aminotransferase 26 IU/L (21-72); Albumin 4.4 g/dL (3.5-5.0); Albumin Globulin Ratio 1.3 (1.0-2.8); Alkaline Phosphatase 63 U/L (38-126); Aspartate Aminotransferase 22 IU/L (17-59); Bilirubin Total 1.2 mg/dL (0.2-1.3); Blood Urea Nitrogen 22 mg/dL (9-20); Calcium 9.2 mg/dL (8.4-10.2); Carbon Dioxide 23 mmol/L (22-32); Chloride 105 mmol/L (98-107); Estimated Glomerular Filt Rate > 60.0 mL/min (>60); Globulin 3.3 g/dL (1.7-4.1); Glucose 105 mg/dL (80-110); HEMOLYSIS < 15 (0-50); Lipase 139 U/L (23-300); Potassium 4.2 mmol/L (3.4-5.1); Sodium 141 mmol/L (137-145); Total Protein 7.7 g/dL (6.3-8.2)
--- NOTE | 2019-02-23 11:47 | ED.ABDPAIN ---
HPI - Abdominal Pain General Chief Complaint: Abdominal Pain Stated Complaint: CONSTIPATED AND URINATING BLOOD Time Seen by Provider: 02/23/19 10:39 Source: patient Mode of arrival: ambulatory Limitations: no limitations History of Present Illness HPI narrative: Patient comes emergency department complaining of grossly bloody urine and constipation. Patient has had hematuria for the last 3 days and constipation for the last 4. He denies nausea or vomiting. No back pain. He has had dysuria. Patient is on Eliquis, and has had hemorrhagic UTIs previously, but has been awhile. states that after his Eliquis dose was decreased, patient stopped having hemorrhagic UTIs for long time. Related Data Home Medications Medication Instructions Recorded Confirmed finasteride 5 mg PO DAILY #0 05/04/17 02/23/19 tamsulosin 0.4 mg capsule 0.4 mg PO BID cap 11/05/17 02/23/19 Lancet: Device 1 st INJ QID 02/23/19 02/23/19 apixaban [Eliquis] 2.5 mg PO BID 02/23/19 02/23/19 docusate calcium 240 mg PO QID 02/23/19 02/23/19 fluoxetine 20 mg PO DAILY 02/23/19 02/23/19 furosemide 20 mg PO DAILY 02/23/19 02/23/19 insulin glargine [Lantus Solostar 38 unit SUBCUT BID 02/23/19 02/23/19 U-100 Insulin] lisinopril 2.5 mg PO DAILY 02/23/19 02/23/19 polyethylene glycol 3350 17 g PO DAILY 02/23/19 02/23/19 potassium chloride 20 meq PO QAM 02/23/19 02/23/19 quetiapine 12.5 mg PO BEDTIME 02/23/19 02/23/19 sennosides [senna] 25.8 mg PO Q12H 02/23/19 02/23/19 simvastatin [Zocor] 40 mg PO BEDTIME 02/23/19 02/23/19 Previous Rx's Medication Instructions Recorded insulin regular human 100 regular See Rx Instructions SUBCUT TIDAC 11/05/17 human 100 unit/mL injection #10 ml solution Syringes: Ultra Fine Insulin #100 each 02/14/18 Syringe w/Needle Barre #100 each 06/15/18 Light pressure salma hose #1 ea 07/05/18 Donut Pillow #1 ea 07/06/18 zinc oxide 20 % topical ointment 1 applictn TOP BID PRN #56.7 gram 07/07/18 Medium to high pressure socks #1 ea 09/06/18 triamcinolone acetonide 0.1 % 1 applictn TOP DAILY #30 gram 12/05/18 topical cream magnesium citrate 150 ml PO BID PRN #296 ml 02/23/19 sulfamethoxazole-trimethoprim 1 tab PO Q12H #14 tab 02/23/19 [Bactrim DS] hydrocodone 5 mg-acetaminophen 325 1 tab PO TID PRN #90 tab 02/24/19 mg tablet Allergies Allergy/AdvReac Type Severity Reaction Status Date / Time No Known Drug Allergies Allergy Verified 02/23/19 10:36 Review of Systems Constitutional Constitutional: Denies chills, Denies fatigue, Denies fever(s), Denies frequent falls, Denies lethargy and Denies weakness Eyes Eyes: Denies change in vision, Denies eye discharge, Denies irritation and Denies loss of vision ENT Ears, Nose, Mouth, and Throat: Denies change in voice, Denies dizziness, Denies neck pain, Denies sore throat and Denies throat swelling Cardiovascular Cardiovascular: Denies chest pain, Denies irregular heart rhythm, Denies lightheadedness, Denies palpitations, Denies dyspnea, Denies dyspnea on exertion and Denies orthopnea Respiratory Respiratory: Denies cough, Denies dyspnea, Denies dyspnea on exertion and Denies wheezing Gastrointestinal Gastrointestinal: Denies abdominal pain, Denies change in bowel habits, Denies diarrhea, Denies nausea and Denies vomiting Genitourinary Genitourinary: Reports hematuria, Denies flank pain, Denies urinary incontinence and Denies urinary urgency Musculoskeletal Musculoskeletal: Denies back pain, Denies muscle weakness, Denies neck pain, Denies numbness and Denies tingling Integumentary/Breasts Skin/Breast: Denies pruritus, Denies erythema, Denies rash and Denies wounds Neurologic Neurologic: Denies behavioral changes, Denies confusion, Denies dizziness, Denies frequent falls, Denies loss of vision, Denies numbness, Denies tingling and Denies weakness Psychiatric Psychiatric: Denies anxiety, Denies behavioral changes, Denies confusion, Denies depression, Denies homicidal ideation and Denies suicidal ideation Endocrine Endocrine: Denies fatigue, Denies flushing and Denies palpitations Hematologic/Lymphatic Hematologic/Lymphatic: Denies easy bruising Allergic/Immunologic Allergic/Immunologic: Denies urticaria, Denies throat swelling and Denies wheezing [facility] Medical History Atrial fibrillation (Inactive) Atrial fibrillation (Chronic 02/21/15) Benign prostatic hyperplasia (Inactive) BPH (benign prostatic hyperplasia) (Chronic) Cardiomyopathy (Inactive) Cardiomyopathy (Chronic 02/21/15) Cataracts, bilateral (Chronic 07/26/17) CHF (congestive heart failure) (Chronic) Coronary artery disease (Chronic) Diabetes (Chronic) Diabetes mellitus (Inactive) Hematuria (Inactive) Hematuria (Resolved ~2016) History of CVA (cerebrovascular accident) (Resolved 07/12/16) Hyperlipemia (Chronic) Hyperlipidemia (Inactive) Hypertension (Inactive) Hypertension (Chronic) Peripheral vascular disease (Chronic) PVD (peripheral vascular disease) (Inactive) Renal failure (Chronic) Status post myocardial infarction (Resolved 1994) Surgical History History of cranioplasty (Resolved 10/30/16) History of surgery on arm (Resolved) History of vasectomy (Resolved) S/P TURP (Resolved 10/19/13) Status post craniectomy (Resolved 07/12/16) Family History Mother Age: 89 Dementia Father Cancer Social History Smoking Status: Former smoker second hand exposure: No alcohol intake: never substance use type: does not use Family History Mother Age: 89 Dementia Father Cancer Social History Smoking Status: Former smoker second hand exposure: No alcohol intake: never substance use type: does not use Exam Initial Vital Signs Initial Vital Signs: Vital Signs Temperature 97.2 F L 02/23/19 10:31 Pulse Rate 67 02/23/19 10:31 Respiratory Rate 18 02/23/19 10:31 Blood Pressure 112/78 02/23/19 10:31 Pulse Oximetry 97 02/23/19 10:31 Const General: cooperative and well developed Nutritional Appearance: well nourished Orientation: alert, awake, oriented x3 and not confused [facility] Head: normocephalic and atraumatic Ears: external ears normal Nose: external nose normal and No nasal discharge Face and sinus: face symmetric and No dry mucous membranes Mouth: oral mucosae normal and moist mucous membranes Teeth and gingiva: dentition normal Eyes General: appearance normal, both eyes and all related structures Eyelids: eyelids normal Conjunctivae: conjunctivae normal Sclera: sclerae normal Pupils: PERRL EOM: EOM intact bilaterally Neck Neck: normal visual inspection, trachea midline, No lymphadenopathy, No midline deformity and No JVD Lymphatic: No lymphedema Chest Chest: normal inspection of the chest Resp Effort & Inspection: normal respiratory effort, able to speak in complete sentences, no respiratory distress and no use of accessory muscles Auscultation: clear to auscultation bilaterally, no rales, no rhonchi and no wheezes Cardio Rate: regular rate Rhythm: regular rhythm Heart Sounds: no click, no gallops, no murmurs and no rubs Pulses: normal peripheral pulses GI Inspection: non-distended Palpation: soft, no hepatosplenomegaly, No guarding, No pulsatile mass and No tender Auscultation: normal bowel sounds Back/Spine/Pelvis Back: No CVA tenderness Cervical Spine: cervical ROM normal and No pain with cervical ROM Thoracic/Lumbar Spine: thoracic and lumbar spine normal to inspection Skin General: no rashes or lesions noted, No jaundice and No petechiae Neuro General: alert, oriented x3, gait normal and no focal motor deficits Speech: speech normal Extrem General: full ROM, no clubbing, cyanosis or edema, no pedal edema and no calf tenderness Psych Appearance: well kempt Mental Status: mental status grossly normal Attitude: cooperative Thought Content: normal and suicidality Judgment: judgment good Course Course Course Narrative: Patient was worked up with labs and urinalysis, found to have a mildly positive urine for infection. His laboratory studies were otherwise unremarkable. Patient was started on antibiotics in the emergency department. I have advised him that if his hematuria does not resolve after completing the course of antibiotics, then he should follow up with his urologist for further evaluation. If he becomes febrile and otherwise worsens in spite of antibiotics, he should return to the emergency department. is present for discussion. Orders Ordered: ED Orders 02/23/19 10:40 XR acute abdomen series Stat 02/23/19 10:45 Complete Blood Count AUTO DIFF Stat Comprehensive Metabolic Panel Stat Lipase Stat Partial Thromboplastin Time Stat Prothrombin Time INR Stat 02/23/19 10:57 Urinalysis and Microscopic Stat Vital Signs Vital signs: Vital Signs - 8 hr 02/23/19 10:31 Temperature 97.2 F L Pulse Rate 67 Respiratory Rate 18 Blood Pressure 112/78 Pulse Oximetry 97 MDM - Abdominal Pain Medical Records Attestation: I reviewed the patient's medical records. Lab Data Attestation: I reviewed the patient's lab results. Result diagrams: 02/23/19 10:45 02/23/19 10:45 Labs: Lab Results 02/23/19 02/23/19 02/23/19 Range/Units 10:45 10:45 10:45 WBC 7.8 (4.5-11.0) X10^3/uL RBC 4.88 (4.5-5.9) X10^6/uL Hgb 13.9 (13.5-17.5) g/dL Hct 41.7 (41-53) % MCV 85.3 (80-100) fL MCH 28.4 (26-34) PG MCHC 33.2 (30-36) % RDW 14.7 (11.6-14.8) % Plt Count 209 (150-400) X10^3/uL Neut % (Auto) 61.9 (50-75) % Lymph % (Auto) 27.0 (25-40) % [place]ama % (Auto) 7.5 (3-14) % Eos % (Auto) 3.1 (2-4) % Baso % (Auto) 0.5 (0-2) % Neut # (Auto) 4800 (7959-7249) /uL Lymph # (Auto) 2100 (4909-9872) /uL Tama # (Auto) 600 (0-900) /uL Eos # (Auto) 200 (0-450) /uL Baso # (Auto) 0 (0-100) /uL PT 11.5 (10.1-12.7) SECONDS INR 1.0 (0.9-1.3) APTT 37 H (26.4-36.2) SECONDS Sodium 141 (137-145) mmol/L Potassium 4.2 (3.4-5.1) mmol/L Chloride 105 (98-107) mmol/L Carbon Dioxide 23 (22-32) mmol/L BUN 22 H (9-20) mg/dL Creatinine 1.10 (0.66-1.25) mg/dL Estimated GFR > 60.0 (>60) mL/min BUN/Creatinine Ratio 20.0 (6-22) Glucose 105 (80-110) mg/dL Calcium 9.2 (8.4-10.2) mg/dL Total Bilirubin 1.2 (0.2-1.3) mg/dL AST 22 (17-59) IU/L ALT 26 (21-72) IU/L Alkaline Phosphatase 63 (38-126) U/L Total Protein 7.7 (6.3-8.2) g/dL Albumin 4.4 (3.5-5.0) g/dL Globulin 3.3 (1.7-4.1) g/dL Albumin/Globulin Ratio 1.3 (1.0-2.8) Lipase 139 (23-300) U/L Urine Color Urine Appearance Urine pH (4.5-8.0) Ur Specific [place] (1.000-1.035) Urine Protein (Negative) Urine Glucose (UA) (Negative) g/dL Urine Ketones (NEGATIVE) Urine Occult Blood (Negative) Urine Nitrate (Negative) Urine Bilirubin (NEGATIVE) Urine Urobilinogen (0.2) E.U./dL Ur Leukocyte Esterase (NEGATIVE) Urine RBC (0-5/HPF) Urine WBC (0-5/HPF) Urine Bacteria (None) Ur Culture Indicated? 02/23/19 Range/Units 10:45 WBC (4.5-11.0) X10^3/uL RBC (4.5-5.9) X10^6/uL Hgb (13.5-17.5) g/dL Hct (41-53) % MCV (80-100) fL MCH (26-34) PG MCHC (30-36) % RDW (11.6-14.8) % Plt Count (150-400) X10^3/uL Neut % (Auto) (50-75) % Lymph % (Auto) (25-40) % [place]ama % (Auto) (3-14) % Eos % (Auto) (2-4) % Baso % (Auto) (0-2) % Neut # (Auto) (6899-5998) /uL Lymph # (Auto) (8893-6448) /uL Tama # (Auto) (0-900) /uL Eos # (Auto) (0-450) /uL Baso # (Auto) (0-100) /uL PT (10.1-12.7) SECONDS INR (0.9-1.3) APTT (26.4-36.2) SECONDS Sodium (137-145) mmol/L Potassium (3.4-5.1) mmol/L Chloride (98-107) mmol/L Carbon Dioxide (22-32) mmol/L BUN (9-20) mg/dL Creatinine (0.66-1.25) mg/dL Estimated GFR (>60) mL/min BUN/Creatinine Ratio (6-22) Glucose (80-110) mg/dL Calcium (8.4-10.2) mg/dL Total Bilirubin (0.2-1.3) mg/dL AST (17-59) IU/L ALT (21-72) IU/L Alkaline Phosphatase (38-126) U/L Total Protein (6.3-8.2) g/dL Albumin (3.5-5.0) g/dL Globulin (1.7-4.1) g/dL Albumin/Globulin Ratio (1.0-2.8) Lipase (23-300) U/L Urine Color Red Urine Appearance Turbid Urine pH 7.0 (4.5-8.0) Ur Specific [place] 1.015 (1.000-1.035) Urine Protein 3+ H (Negative) Urine Glucose (UA) Negative (Negative) g/dL Urine Ketones Negative (NEGATIVE) Urine Occult Blood 3+ H (Negative) Urine Nitrate Negative (Negative) Urine Bilirubin Negative (NEGATIVE) Urine Urobilinogen 0.2 (0.2) E.U./dL Ur Leukocyte Esterase Trace H (NEGATIVE) Urine RBC >100/hpf (0-5/HPF) Urine WBC 1-5/hpf (0-5/HPF) Urine Bacteria None seen (None) Ur Culture Indicated? Specimen cultured Imaging Data Abdominal x-ray: Radiologist's impression: PROCEDURE: XR ACUTE ABDOMEN SERIES INDICATIONS: constipation for 4 days. TECHNIQUE: One view chest and two views of the abdomen were acquired. COMPARISON: None. FINDINGS: Surgical changes and devices: None. Chest: Lungs are clear. Heart size is normal. No pleural effusions. No pneumoperitoneum. Abdomen: Bowel gas pattern is nonobstructive. Mild to moderate amount of fecal matter throughout the colon is seen. No suspicious calcifications. Visualized solid organ contours appear normal. Bones: No suspicious bony lesions. IMPRESSION: No acute cardiopulmonary pathology. Mild constipation. No gross free air. Dictated by: Frantz Montgomery M.D. on 02/23/2019 at 11:16 Approved by: Frantz Montgomery M.D. on 02/23/2019 at 11:16 Discharge Plan Departure Patient Disposition: Home Clinical Impression: Acute UTI Constipation Qualifiers: Constipation type: other constipation type Qualified Code(s): K59.09 - Other constipation Discharge Date/Time: 02/23/19 13:30 Instructions: DI for Urinary Tract Infection (UTI), DI for Constipation Activity Restrictions/Additional Instructions: [facility] Prescriptions: New sulfamethoxazole-trimethoprim [Bactrim DS] 800-160 mg tablet 1 tab PO Q12H Qty: 14 RF: 0 magnesium citrate solution 150 ml PO BID PRN (Reason: constipation) Qty: 296 RF: 0 No Action tamsulosin [Flomax] 0.4 mg capsule,extended release 24hr 0.4 mg PO BID RF: 0 (DME) Light pressure salma hose Qty: 1 RF: 0 (DME) Donut Pillow Qty: 1 RF: 0 (DME) Medium to high pressure socks Qty: 1 RF: 0 finasteride 5 MG tablet 5 mg PO DAILY Qty: 0 RF: 0 insulin regular human [Humulin R Regular U-100 Insuln] 100 unit/mL solution See Rx Instructions SUBCUT TIDAC Qty: 10 RF: 12 (DME) Syringes: Ultra Fine Insulin Syringe w/Needle 0 .Route .MEDSUPPLY Qty: 100 RF: 3 (DME) Barre 0 .Route .MEDSUPPLY Qty: 100 RF: 3 zinc oxide 20 % ointment 1 applictn TOP BID PRN (Reason: skin irritation) Qty: 56.7 RF: 0 hydrocodone-acetaminophen 5-325 mg tablet 1 tab PO TID PRN (Reason: pain) Qty: 90 RF: 0 triamcinolone acetonide 0.1 % cream 1 applictn TOP DAILY Qty: 30 RF: 2 polyethylene glycol 3350 17 gram powder in packet 17 g PO DAILY RF: 0 potassium chloride 20 mEq tablet,ER particles/crystals 20 meq PO QAM RF: 0 furosemide 20 mg tablet 20 mg PO DAILY RF: 0 simvastatin [Zocor] 40 mg tablet 40 mg PO BEDTIME RF: 0 fluoxetine 20 mg capsule 20 mg PO DAILY RF: 0 lisinopril 2.5 mg tablet 2.5 mg PO DAILY RF: 0 Lantus Solostar U-100 Insulin 100 unit/mL (3 mL) insulin pen 38 unit SUBCUT BID RF: 0 Eliquis 5 mg tablet 2.5 mg PO BID RF: 0 sennosides [senna] 8.6 mg Tablet 25.8 mg PO Q12H RF: 0 docusate calcium 240 mg Capsule 240 mg PO QID RF: 0 quetiapine 25 mg tablet 12.5 mg PO BEDTIME RF: 0 Lancet: Device 1 st INJ QID RF: 0 Referrals: Rebecca Bae DO [Primary Care Provider] -
[2019-02-23 12:41] VITALS: BP 108/61; PULSE 58; RESP 16; O2SAT 93
[2019-02-23 12:43] LABS: Bacteria Urine None Seen
[2019-02-23 12:54] LABS: Appearance Urine UA TURBID; Bilirubin Urine UA NEGATIVE (NEGATIVE); Color Urine UA RED; Glucose Urine UA NEGATIVE (Negative); Ketones Urine UA NEGATIVE (NEGATIVE); Leukocyte Esterase Urine UA TRACE (NEGATIVE); Nitrite Urine UA NEGATIVE (Negative); Occult Blood Urine UA 3+ (Negative); Protein Urine UA 3+ (Negative); Specific Gravity Urine UA 1.015 (1.000-1.035); Urobilinogen Urine UA 0.2 E.U./dL (0.2)
[2019-02-23 13:02] LABS: Culture Indicated Urine Specimen Cultured; RBC Urine >100/HPF (0-5/HPF); WBC Urine 1-5/HPF (0-5/HPF)
== END 2019-02-23 13:30 | disposition home or self-care (01) ==
PROVIDERS: Emergency Provider Emergency Medicine; PCP Family Medicine
DX: N39.0 Urinary tract infection, site not specified (principal); K59.09 Other constipation
CPT/HCPCS: 36591; 74022; 80053; 81001; 83690; 85025; 85610; 85730; 87077; 87086; 99282; 99284

== ENCOUNTER → 2019-03-07 11:27 | Outpatient (CLI) | payer MEDICARE, MEDICAID, SELFPAY ==
[2019-03-07 12:33] LABS: Hemoglobin A1C% w Est Avg Glu 6.2 % (4.0-6.0)
== END ==
PROVIDERS: PCP Family Medicine; Visit Provider Family Medicine
DX: E11.9 Type 2 diabetes mellitus without complications (principal)
CPT/HCPCS: 36415; 83036

== ENCOUNTER → 2019-06-07 12:15 | Outpatient (CLI) | payer MEDICARE, MEDICAID, SELFPAY ==
--- NOTE | 2019-06-07 12:18 | DI.RAD.S_ITS ---
PROCEDURE: XR CHEST 2V INDICATIONS: R/O pneumonia TECHNIQUE: 2 views of the chest were acquired. COMPARISON: [facility], CHEST 1 VIEW, 06/20/2017, 18:16. [facility], CHEST 1 VIEW, 07/12/2016, 7:55. Lung bases on CT 11/13/2014. FINDINGS: Surgical changes and devices: None. Lungs and pleura: Lungs are clear. No pleural effusions or pneumothorax. Mediastinum: Mediastinal contours are normal. Heart size is at the upper limits of normal. Bones and chest wall: No suspicious bony abnormalities. Soft tissues appear unremarkable. IMPRESSION: No acute cardiopulmonary abnormality. Dictated by: Jeffry Mejia M.D. on 06/07/2019 at 13:03 Approved by: Jeffry Mejia M.D. on 06/07/2019 at 13:05
== END ==
PROVIDERS: PCP Family Medicine; Visit Provider Family Medicine
DX: R05 Cough (principal)
CPT/HCPCS: 71046

== ENCOUNTER → 2019-06-08 09:31 | Outpatient (CLI) | payer MEDICARE, MEDICAID, SELFPAY ==
[2019-06-08 10:29] LABS: Add Manual Diff / Slide Review NO; Basophils Absolute Auto 100 /uL (0-100); Basophils Percent Auto 0.6 % (0-2); Eosinophils Absolute Auto 300 /uL (0-450); Eosinophils Percent Auto 4.2 % (2-4); Hematocrit 41.2 % (41-53); Lymphocytes Absolute Auto 2700 /uL (1100-4500); Lymphocytes Percent Auto 32.9 % (25-40); Mean Corpuscular Hemoglobin 28.6 PG (26-34); Mean Corpuscular Volume 84.1 fL (80-100); Monocytes Absolute Auto 700 /uL (0-900); Monocytes Percent Auto 8.3 % (3-14); Neutrophils Absolute Auto 4500 /uL (1500-7000); Platelet Count 243 X10^3/uL (150-400); Red Blood Cell Count 4.89 X10^6/uL (4.5-5.9); Red Cell Distribution Width 14.1 % (11.6-14.8); White Blood Cell Count 8.3 X10^3/uL (4.5-11.0)
[2019-06-08 11:06] LABS: Alanine Aminotransferase 19 IU/L (<50); Albumin Globulin Ratio 1.4 (1.0-2.8); Alkaline Phosphatase 71 U/L (38-126); Aspartate Aminotransferase 21 IU/L (17-59); Blood Urea Nitrogen 16 mg/dL (9-20); Calcium 9.5 mg/dL (8.4-10.2); Carbon Dioxide 31 mmol/L (22-32); Chloride 102 mmol/L (98-107); Cholesterol 128 mg/dL (140-199); Estimated Glomerular Filt Rate > 60.0 mL/min (>60); Globulin 2.9 g/dL (1.7-4.1); Glucose 138 mg/dL (80-110); HDL Cholesterol 41 mg/dL (40-60); HEMOLYSIS < 15 (0-50); LDL Cholesterol Calculated 69 mg/dL (<100); Potassium 5.1 mmol/L (3.4-5.1); Sodium 141 mmol/L (137-145); Total Protein 6.9 g/dL (6.3-8.2); Triglycerides 89 mg/dL (35-150)
[2019-06-08 11:27] LABS: Thyroid Stimulating Hormone 1.94 uIU/mL (0.47-4.68)
[2019-06-08 12:09] LABS: Hemoglobin A1C% w Est Avg Glu 7.9 % (4.0-6.0)
== END ==
PROVIDERS: PCP Family Medicine; Visit Provider Family Medicine
DX: E11.9 Type 2 diabetes mellitus without complications (principal); I48.91 Unspecified atrial fibrillation; I69.30 Unspecified sequelae of cerebral infarction; Z86.39 Personal history of other endocrine, nutritional and metabolic disease
CPT/HCPCS: 36415; 80053; 80061; 83036; 84443; 85025

== ENCOUNTER → 2019-09-27 08:04 | Outpatient (CLI) | payer MEDICARE, MEDICAID, SELFPAY ==
[2019-09-27 09:26] LABS: Hemoglobin A1C% w Est Avg Glu 8.1 % (4.0-6.0)
[2019-09-27 09:41] LABS: Alanine Aminotransferase 17 IU/L (<50); Albumin 4.4 g/dL (3.5-5.0); Albumin Globulin Ratio 1.3 (1.0-2.8); Alkaline Phosphatase 58 U/L (38-126); Aspartate Aminotransferase 23 IU/L (17-59); BUN Creatinine Ratio 17.3 (6-22); Bilirubin Total 1.1 mg/dL (0.2-1.3); Blood Urea Nitrogen 18 mg/dL (9-20); Calcium 9.4 mg/dL (8.4-10.2); Carbon Dioxide 26 mmol/L (22-32); Chloride 105 mmol/L (98-107); Cholesterol 138 mg/dL (140-199); Estimated Glomerular Filt Rate > 60.0 mL/min (>60); Globulin 3.3 g/dL (1.7-4.1); Glucose 124 mg/dL (80-110); HDL Cholesterol 40 mg/dL (40-60); HEMOLYSIS < 15 (0-50); LDL Cholesterol Calculated 78 mg/dL (<100); Potassium 4.4 mmol/L (3.4-5.1); Sodium 139 mmol/L (137-145); Total Protein 7.7 g/dL (6.3-8.2); Triglycerides 101 mg/dL (35-150)
== END ==
PROVIDERS: PCP Family Medicine; Referring Provider Family Medicine; Visit Provider Family Medicine
DX: E11.9 Type 2 diabetes mellitus without complications (principal); Z86.39 Personal history of other endocrine, nutritional and metabolic disease; I42.9 Cardiomyopathy, unspecified; I48.91 Unspecified atrial fibrillation; I69.30 Unspecified sequelae of cerebral infarction; I87.2 Venous insufficiency (chronic) (peripheral)
CPT/HCPCS: 36415; 80053; 80061; 83036

== ENCOUNTER → 2020-02-24 09:19 | Outpatient (CLI) | payer MEDICARE, MEDICAID, SELFPAY | PROVIDERS: PCP Family Medicine; Visit Provider Physician Assistant | DX: T14.8XXA Other injury of unspecified body region, initial encounter (principal) | CPT/HCPCS: 87070; 87205 ==

== ENCOUNTER → 2020-02-24 09:23 | Outpatient (CLI) | payer MEDICARE, MEDICAID, SELFPAY ==
[2020-02-24 11:01] LABS: Add Manual Diff / Slide Review NO; Basophils Absolute Auto 0 /uL (0-100); Basophils Percent Auto 0.4 % (0-2); Eosinophils Absolute Auto 200 /uL (0-450); Eosinophils Percent Auto 3.1 % (2-4); Hemoglobin 14.4 g/dL (13.5-17.5); Lymphocytes Absolute Auto 2200 /uL (1100-4500); Lymphocytes Percent Auto 27.3 % (25-40); Mean Corpuscular HGB Conc 33.5 % (30-36); Mean Corpuscular Hemoglobin 29.1 PG (26-34); Mean Corpuscular Volume 86.8 fL (80-100); Monocytes Absolute Auto 600 /uL (0-900); Monocytes Percent Auto 7.7 % (3-14); Neutrophils Absolute Auto 4900 /uL (1500-7000); Neutrophils Percent Auto 61.5 % (50-75); Platelet Count 203 X10^3/uL (150-400); Red Blood Cell Count 4.95 X10^6/uL (4.5-5.9); Red Cell Distribution Width 14.6 % (11.6-14.8); White Blood Cell Count 7.9 X10^3/uL (4.5-11.0)
[2020-02-24 11:14] LABS: Hemoglobin A1C% w Est Avg Glu 8.2 % (4.0-6.0)
[2020-02-24 11:31] LABS: Alanine Aminotransferase 21 IU/L (<50); Albumin 4.3 g/dL (3.5-5.0); Albumin Globulin Ratio 1.5 (1.0-2.8); Alkaline Phosphatase 57 U/L (38-126); Aspartate Aminotransferase 24 IU/L (17-59); BUN Creatinine Ratio 15.8 (6-22); Bilirubin Total 1.1 mg/dL (0.2-1.3); Blood Urea Nitrogen 18 mg/dL (9-20); Calcium 9.3 mg/dL (8.4-10.2); Carbon Dioxide 29 mmol/L (22-32); Chloride 104 mmol/L (98-107); Cholesterol 147 mg/dL (140-199); Estimated Glomerular Filt Rate > 60.0 mL/min (>60); Globulin 2.8 g/dL (1.7-4.1); Glucose 109 mg/dL (80-110); HDL Cholesterol 44 mg/dL (40-60); HEMOLYSIS < 15 (0-50); LDL Cholesterol Calculated 84 mg/dL (<100); Potassium 4.7 mmol/L (3.4-5.1); Sodium 139 mmol/L (137-145); Total Protein 7.1 g/dL (6.3-8.2); Triglycerides 93 mg/dL (35-150)
== END ==
PROVIDERS: PCP Family Medicine; Referring Provider Family Medicine; Visit Provider Family Medicine
DX: E11.9 Type 2 diabetes mellitus without complications (principal); I42.9 Cardiomyopathy, unspecified; T14.8XXA Other injury of unspecified body region, initial encounter
CPT/HCPCS: 36415; 80053; 80061; 83036; 85025; 87070; 87205

== ENCOUNTER → 2020-03-02 11:37 | Outpatient (CLI) | payer MEDICARE, MEDICAID, SELFPAY ==
--- NOTE | 2020-03-02 11:40 | DI.RAD.S_ITS ---
PROCEDURE: XR TIBIA FUBULA RT 2V INDICATIONS: leg pain- r/o foreign body mid tib fib area cut by glass TECHNIQUE: 2 views of the tibia and fibula were acquired. COMPARISON: None. FINDINGS: Bones: No fractures or dislocations. No suspicious bony lesions. Age-appropriate bony degenerative changes are seen. Soft tissues: Focal density can be seen along the medial aspect of the proximal tibia medially, which measures up to 3 cm. Soft tissue calcification can be seen elsewhere. IMPRESSION: 3 cm focus of density seen adjacent to the proximal tibia medially. This is felt most likely to be related to benign soft tissue calcification, although differential diagnosis includes foreign body in this patient with this given history. Please correlate with the known site of the laceration with suspect glass foreign body. Dictated by: Russell Casanova M.D. on 03/02/2020 at 11:03 Approved by: Russell Casanova M.D. on 03/02/2020 at 11:05
== END ==
PROVIDERS: PCP Family Medicine; Referring Provider Physician Assistant; Visit Provider Physician Assistant
DX: S81.811A Laceration without foreign body, right lower leg, initial encounter (principal); W25.XXXA Contact with sharp glass, initial encounter
CPT/HCPCS: 73590

== ENCOUNTER → 2020-07-09 08:54 | Outpatient (CLI) | payer MEDICARE, MEDICAID, SELFPAY ==
[2020-07-09 09:44] LABS: Add Manual Diff / Slide Review NO; Basophils Absolute Auto 100 /uL (0-100); Basophils Percent Auto 0.6 % (0-2); Eosinophils Absolute Auto 400 /uL (0-450); Eosinophils Percent Auto 3.8 % (2-4); Hematocrit 42.7 % (41-53); Lymphocytes Absolute Auto 2600 /uL (1100-4500); Lymphocytes Percent Auto 27.7 % (25-40); Mean Corpuscular HGB Conc 32.8 % (30-36); Mean Corpuscular Hemoglobin 28.4 PG (26-34); Mean Corpuscular Volume 86.6 fL (80-100); Monocytes Absolute Auto 800 /uL (0-900); Monocytes Percent Auto 9.1 % (3-14); Neutrophils Absolute Auto 5400 /uL (1500-7000); Neutrophils Percent Auto 58.8 % (50-75); Platelet Count 216 X10^3/uL (150-400); Red Blood Cell Count 4.93 X10^6/uL (4.5-5.9); Red Cell Distribution Width 14.3 % (11.6-14.8); White Blood Cell Count 9.2 X10^3/uL (4.5-11.0)
[2020-07-09 09:54] LABS: Hemoglobin A1C% w Est Avg Glu 8.6 % (4.0-6.0)
[2020-07-09 10:12] LABS: Alanine Aminotransferase 20 IU/L (<50); Albumin Globulin Ratio 1.5 (1.0-2.8); Alkaline Phosphatase 59 U/L (38-126); Aspartate Aminotransferase 22 IU/L (17-59); BUN Creatinine Ratio 18.4 (6-22); Bilirubin Total 0.7 mg/dL (0.2-1.3); Blood Urea Nitrogen 19 mg/dL (9-20); Carbon Dioxide 26 mmol/L (22-32); Chloride 105 mmol/L (98-107); Cholesterol 152 mg/dL (140-199); Estimated Glomerular Filt Rate > 60.0 mL/min (>60); Globulin 2.6 g/dL (1.7-4.1); Glucose 137 mg/dL (80-110); HDL Cholesterol 46 mg/dL (40-60); HEMOLYSIS < 15 (0-50); LDL Cholesterol Calculated 87 mg/dL (<100); Potassium 4.6 mmol/L (3.4-5.1); Sodium 138 mmol/L (137-145); Total Protein 6.6 g/dL (6.3-8.2); Triglycerides 93 mg/dL (35-150)
== END ==
PROVIDERS: PCP Family Medicine; Referring Provider Family Medicine; Visit Provider Family Medicine
DX: E11.42 Type 2 diabetes mellitus with diabetic polyneuropathy (principal); I48.91 Unspecified atrial fibrillation; Z79.4 Long term (current) use of insulin
CPT/HCPCS: 36415; 80053; 80061; 83036; 85025

== ENCOUNTER → 2020-07-23 11:03 | Outpatient (CLI) | payer MEDICARE, MEDICAID, SELFPAY ==
[2020-07-23] MEDS: COVID-19 VACC #1, MRNA(MOD) 100 MCG/0.5 ML VIAL IM (11:11)
== END ==
PROVIDERS: PCP Family Medicine; Visit Provider Internal Medicine
DX: Z23 Encounter for immunization (principal)
CPT/HCPCS: 0011A; 91301

== ENCOUNTER → 2020-07-30 12:41 | Outpatient (CLI) | payer MEDICARE, MEDICAID, SELFPAY ==
[2020-07-30 20:28] LABS: Bacteria Urine None Seen
[2020-07-30 20:29] LABS: Culture Indicated Urine Cult Not Indicated; RBC Urine >100/HPF (0-5/HPF); WBC Urine 1-5/HPF (0-5/HPF)
== END ==
PROVIDERS: PCP Family Medicine; Visit Provider Nurse Practitioner
DX: R31.9 Hematuria, unspecified (principal)
CPT/HCPCS: 81015; 87077; 87086; 87186

== ENCOUNTER → 2020-08-20 10:56 | Outpatient (CLI) | payer MEDICARE, MEDICAID, SELFPAY ==
[2020-08-20] MEDS: COVID-19 VACC #2, MRNA(MOD) 100 MCG/0.5 ML VIAL IM (11:19)
== END ==
PROVIDERS: PCP Family Medicine; Visit Provider Internal Medicine
DX: Z23 Encounter for immunization (principal)
CPT/HCPCS: 0012A; 91301

== ENCOUNTER 2020-10-01 12:14 | Emergency (ER) | payer MEDICARE, MEDICAID, SELFPAY ==
[2020-10-01] VITALS (12 sets, daily range): BP systolic 98–139; BP diastolic 50–65; PULSE 74–88; RESP 15–29; TEMP 37.3; O2SAT 92–99; BMI 39.0
--- NOTE | 2020-10-01 12:25 | DI.RAD.S_ITS ---
PROCEDURE: XR CHEST 1V INDICATIONS: chest pain TECHNIQUE: One view of the chest was acquired. COMPARISON: [facility], CR, XR CHEST 2V, 06/07/2019, 12:27. FINDINGS: Surgical changes and devices: None. Lungs and pleura: Lungs are clear. No pleural effusions or pneumothorax. Mediastinum: Mediastinal contours appear normal. Heart size is normal Bones and chest wall: No suspicious bony lesions. Overlying soft tissues appear unremarkable. IMPRESSION: No acute cardiopulmonary disease. Dictated by: Rosenda Angulo M.D. on 10/01/2020 at 11:58 Approved by: Rosenda Angulo M.D. on 10/01/2020 at 11:59
--- NOTE | 2020-10-01 12:33 | PC.NURSE ---
Pt has had a stroke in the past and is unable to communicate well. Pt's states that she believed he was having some abd pain but then today he clutched his chest and appeared more SOB then usual.
[2020-10-01 12:38] LABS: Add Manual Diff / Slide Review NO; Basophils Absolute Auto 100 /uL (0-100); Eosinophils Absolute Auto 300 /uL (0-450); Eosinophils Percent Auto 2.9 % (2-4); Hematocrit 38.4 % (41-53); Hemoglobin 12.7 g/dL (13.5-17.5); Lymphocytes Absolute Auto 2400 /uL (1100-4500); Lymphocytes Percent Auto 23.1 % (25-40); Mean Corpuscular Hemoglobin 28.7 PG (26-34); Mean Corpuscular Volume 87.1 fL (80-100); Monocytes Absolute Auto 700 /uL (0-900); Monocytes Percent Auto 6.8 % (3-14); Neutrophils Absolute Auto 6900 /uL (1500-7000); Neutrophils Percent Auto 66.2 % (50-75); Platelet Count 219 X10^3/uL (150-400); Red Blood Cell Count 4.41 X10^6/uL (4.5-5.9); Red Cell Distribution Width 15.1 % (11.6-14.8); White Blood Cell Count 10.5 X10^3/uL (4.5-11.0)
[2020-10-01 12:44] LABS: Prothrombin Time 11.6 SECONDS (10.1-12.7)
[2020-10-01 12:47] LABS: PTT Partial Thromboplastin Tim 33 SECONDS (26.4-36.2)
[2020-10-01 13:02] LABS: Alanine Aminotransferase 21 IU/L (<50); Albumin 4.1 g/dL (3.5-5.0); Albumin Globulin Ratio 1.5 (1.0-2.8); Alkaline Phosphatase 69 U/L (38-126); Aspartate Aminotransferase 25 IU/L (17-59); BUN Creatinine Ratio 18.6 (6-22); Bilirubin Total 1.1 mg/dL (0.2-1.3); Blood Urea Nitrogen 21 mg/dL (9-20); Calcium 9.1 mg/dL (8.4-10.2); Carbon Dioxide 22 mmol/L (22-32); Chloride 104 mmol/L (98-107); Creatine Kinase 120 U/L (55-170); Estimated Glomerular Filt Rate > 60.0 mL/min (>60); Globulin 2.8 g/dL (1.7-4.1); Glucose 206 mg/dL (80-110); HEMOLYSIS < 15 (0-50); Lipase 173 U/L (23-300); Potassium 4.8 mmol/L (3.4-5.1); Sodium 136 mmol/L (137-145); Total Protein 6.9 g/dL (6.3-8.2)
[2020-10-01 13:13] LABS: Troponin I 0.026 ng/mL (0.01-0.034)
[2020-10-01 13:17] LABS: CKMB % Relative Index 0.8 % (1.5-5.0); Creatine Kinase MB 0.95 ng/mL (<2.37)
--- NOTE | 2020-10-01 14:12 | ED.CHESTPAIN ---
HPI - Chest Pain General Chief Complaint: Chest Pain Stated Complaint: CHEST PAIN Time Seen by Provider: 10/01/20 14:12 Source: patient and family Mode of arrival: Wheelchair Limitations: altered mental status History of Present Illness HPI narrative: 70-year-old gentleman with a history of ischemic stroke and craniotomy currently on apixaban with communication difficulty secondary to that. History of coronary artery disease post ME, congestive heart failure, hypertension, hyperlipidemia, diabetes who presents after having some difficulties this morning. He seemed indicate that he was having some pain in the right side of his abdomen and his was wondering if that might be due to constipation. She helped him into the bath and as he was in the bath he seemed to indicate that he was having some central chest pain and then complained of some exertional dyspnea getting out of the bath and to the chair. He was readily agreeable to coming to the emergency department which indicated to his that his symptoms were quite significant. She does note that he has been having more difficulty laying flat and has been sleeping in a recliner. He has been having slight increase in lower extremity edema with some weeping from his legs and does report more difficulties with exertional dyspnea over the last number of months. He has not complained and his has not noted any fever, cough, new neurologic symptoms headache or any other signs of infection recently. Related Data Home Medications Medication Instructions Recorded Confirmed Lancet: Device 1 st INJ QID 02/23/19 07/30/20 docusate calcium 240 mg PO QID 02/23/19 07/30/20 sennosides [senna] 25.8 mg PO Q12H 02/23/19 07/30/20 aspirin 81 mg tablet,delayed 81 mg PO DAILY 06/07/19 07/30/20 release Previous Rx's Medication Instructions Recorded insulin regular human 100 unit/mL See Rx Instructions SUBCUT TIDAC 11/05/17 injection solution #10 ml Syringes: Ultra Fine Insulin #100 each 02/14/18 Syringe w/Needle Light pressure salma hose #1 ea 07/05/18 Donut Pillow #1 ea 07/06/18 zinc oxide 20 % topical ointment 1 applictn TOP BID PRN #56.7 gram 07/07/18 Medium to high pressure socks #1 ea 09/06/18 magnesium citrate 150 ml PO BID PRN #296 ml 02/23/19 ProAir HFA 90 mcg/actuation See Rx Instructions .ROUTE 10/16/19 aerosol inhaler .COMPLEX #8.5 gram NS lisinopril 2.5 mg tablet 2.5 mg PO DAILY #90 tab 11/17/19 triamcinolone acetonide 0.1 % See Rx Instructions .ROUTE 02/12/20 topical cream .COMPLEX #30 gram mupirocin 2 % topical ointment 1 applic TOP TID #30 gram 02/24/20 cyclobenzaprine 10 mg tablet 10 mg PO BEDTIME PRN #90 tab 04/08/20 fluoxetine 20 mg capsule 20 mg PO DAILY #90 cap 04/11/20 Lantus Solostar U-100 Insulin 100 See Rx Instructions SUBCUT 04/25/20 unit/mL (3 mL) subcutaneous pen .COMPLEX #30 day NS apixaban 5 mg tablet 2.5 mg PO BID #180 tab 05/06/20 quetiapine 25 mg tablet See Rx Instructions .ROUTE 06/25/20 .COMPLEX #90 tab polyethylene glycol 3350 17 gram 17 g PO DAILY #30 each 07/09/20 oral powder packet insulin lispro 100 unit/mL 5 unit SUBCUT DAILY #15 ml 07/17/20 subcutaneous pen potassium chloride 20 mEq See Rx Instructions .ROUTE 07/23/20 tablet,extended release(part/cryst) .COMPLEX #90 tab finasteride 5 mg tablet 5 mg PO DAILY #90 tab 08/07/20 tamsulosin 0.4 mg capsule 0.4 mg PO BID #180 cap 08/07/20 pen needle, diabetic 31 gauge x See Rx Instructions .ROUTE 08/21/20 5/16 .COMPLEX #100 ea hydrocodone 5 mg-acetaminophen 325 1 tab PO QID PRN #120 tab 08/22/20 mg tablet furosemide 20 mg tablet See Rx Instructions .ROUTE 09/13/20 .COMPLEX #90 tab blood sugar diagnostic See Rx Instructions .ROUTE 09/17/20 .COMPLEX #300 strip simvastatin 40 mg tablet See Rx Instructions .ROUTE 09/24/20 .COMPLEX #90 tab Allergies Allergy/AdvReac Type Severity Reaction Status Date / Time triamcinolone Allergy Mild Hives Verified 10/01/20 12:25 Review of Systems Review of Systems ROS Unobtainable: All systems reviewed & are unremarkable except as noted in HPI and below Patient History Medical History Atrial fibrillation (02/21/15) Benign prostatic hyperplasia BPH (benign prostatic hyperplasia) Cardiomyopathy (02/21/15) Cataracts, bilateral (07/26/17) CHF (congestive heart failure) Chronic neck pain Coronary artery disease Diabetes Hematuria (~2017) History of CVA (cerebrovascular accident) (07/12/16) Hyperlipidemia Hypertension Lower extremity edema Peripheral vascular disease PVD (peripheral vascular disease) Renal failure Status post myocardial infarction (1994) Surgical History History of cranioplasty (10/30/16) History of surgery on arm History of vasectomy S/P TURP (10/19/13) Status post craniectomy (07/12/16) Family History Mother Age: 90 Dementia Father Cancer Social History Smoking Status: Former smoker second hand exposure: No alcohol intake: never substance use type: does not use Smoking Status: Former smoker Substance Use Type: does not use Exam Narrative Exam Narrative: General: Healthy appearing, in no acute distress. Cognitive difficulties with expressive aphasia secondary to stroke and craniotomy, at baseline per HEENT: Moist mucous membranes, normal sclera with reactive pupils, Neck: No JVD, supple Respiratory: Lungs are clear to auscultation, no wheezing no rales no rhonchi. Full and symmetrical air movement Cardiac: Regular rate and rhythm no murmurs no bruits Abdomen: Soft, nontender, good bowel tones, no flank pain Skin: Warm and dry, no rashes Neurologic: Grossly neurologically intact with no new asymmetries or abnormalities Extremities: No trauma, bilateral intraosseous muscle wasting right greater than left. Bilateral chronic venous stasis changes with 2+ lower extremity edema and some mild weeping on the right side without any evidence of increased erythema or cellulitis Psych: Cooperative, interactive Initial Vital Signs Initial Vital Signs: Vital Signs Temperature 99.1 F 10/01/20 12:20 Pulse Rate 87 10/01/20 12:20 Respiratory Rate 24 10/01/20 12:20 Blood Pressure 126/60 10/01/20 12:20 Pulse Oximetry 92 10/01/20 12:20 Course Orders Ordered: ED Orders 10/01/20 12:20 EKG-12 Lead Stat 10/01/20 12:24 Complete Blood Count AUTO DIFF Stat Comprehensive Metabolic Panel Stat Lipase Stat Partial Thromboplastin Time Stat Prothrombin Time INR Stat Troponin & CK Cardiac Panel Stat 10/01/20 12:25 XR chest 1V Stat 10/01/20 14:53 EKG-12 Lead Stat 10/01/20 14:54 NT-proBNP (BNP-Adult 18+) Stat Troponin I Stat Discontinued Medications Furosemide (Furosemide 40 Mg/4 Ml Vial) 40 mg IV NOW ONE Stop: 10/01/20 14:30 Last Admin: 10/01/20 15:09 Dose: 40 mg Documented by: KIRT Vital Signs Vital signs: Vital Signs - 8 hr 10/01/20 12:20 10/01/20 12:21 10/01/20 12:22 Temperature 99.1 F Pulse Rate 87 85 85 Respiratory Rate 24 Blood Pressure 126/60 126/60 Pulse Oximetry 92 92 92 10/01/20 12:30 10/01/20 13:00 10/01/20 13:01 Temperature Pulse Rate 81 76 77 Respiratory Rate 25 H 19 15 Blood Pressure 115/58 L 98/50 L Pulse Oximetry 94 94 93 10/01/20 13:30 10/01/20 14:00 10/01/20 14:30 Temperature Pulse Rate 74 77 79 Respiratory Rate 17 21 18 Blood Pressure 100/55 L 108/54 L 109/56 L Pulse Oximetry 96 99 98 10/01/20 15:00 Temperature Pulse Rate 77 Respiratory Rate 29 H Blood Pressure 113/60 Pulse Oximetry 97 MDM - Chest Pain Medical Records Data Attestation: I reviewed the patient's medical records. Lab Data Attestation: I reviewed the patient's lab results. Result diagrams: 10/01/20 12:24 10/01/20 12:24 Labs: Lab Results 10/01/20 10/01/20 10/01/20 Range/Units 12:24 12:24 12:24 WBC 10.5 (4.5-11.0) X10^3/uL RBC 4.41 L (4.5-5.9) X10^6/uL Hgb 12.7 L (13.5-17.5) g/dL Hct 38.4 L (41-53) % MCV 87.1 (80-100) fL MCH 28.7 (26-34) PG MCHC 33.0 (30-36) % RDW 15.1 H (11.6-14.8) % Plt Count 219 (150-400) X10^3/uL Neut % (Auto) 66.2 (50-75) % Lymph % (Auto) 23.1 L (25-40) % [place] % (Auto) 6.8 (3-14) % Eos % (Auto) 2.9 (2-4) % Baso % (Auto) 1.0 (0-2) % Neut # (Auto) 6900 (0884-8446) /uL Lymph # (Auto) 2400 (2921-2113) /uL [place] # (Auto) 700 (0-900) /uL Eos # (Auto) 300 (0-450) /uL Baso # (Auto) 100 (0-100) /uL PT 11.6 (10.1-12.7) SECONDS INR 1.0 (0.9-1.3) APTT 33 (26.4-36.2) SECONDS Sodium 136 L (137-145) mmol/L Potassium 4.8 (3.4-5.1) mmol/L Chloride 104 (98-107) mmol/L Carbon Dioxide 22 (22-32) mmol/L BUN 21 H (9-20) mg/dL Creatinine 1.13 (0.66-1.25) mg/dL Estimated GFR > 60.0 (>60) mL/min BUN/Creatinine Ratio 18.6 (6-22) Glucose 206 H (80-110) mg/dL Calcium 9.1 (8.4-10.2) mg/dL Total Bilirubin 1.1 (0.2-1.3) mg/dL AST 25 (17-59) IU/L ALT 21 (<50) IU/L Alkaline Phosphatase 69 (38-126) U/L Total Creatine Kinase 120 (55-170) U/L CK-MB (CK-2) 0.95 (<2.37) ng/mL CK-MB (CK-2) Rel Index 0.8 L (1.5-5.0) % Troponin I 0.026 (0.01-0.034) ng/mL NT-Pro-B Natriuret Pep (<125) pg/mL Total Protein 6.9 (6.3-8.2) g/dL Albumin 4.1 (3.5-5.0) g/dL Globulin 2.8 (1.7-4.1) g/dL Albumin/Globulin Ratio 1.5 (1.0-2.8) Lipase 173 (23-300) U/L 10/01/20 Range/Units 14:54 WBC (4.5-11.0) X10^3/uL RBC (4.5-5.9) X10^6/uL Hgb (13.5-17.5) g/dL Hct (41-53) % MCV (80-100) fL MCH (26-34) PG MCHC (30-36) % RDW (11.6-14.8) % Plt Count (150-400) X10^3/uL Neut % (Auto) (50-75) % Lymph % (Auto) (25-40) % [place] % (Auto) (3-14) % Eos % (Auto) (2-4) % Baso % (Auto) (0-2) % Neut # (Auto) (3304-5365) /uL Lymph # (Auto) (7454-4665) /uL [place] # (Auto) (0-900) /uL Eos # (Auto) (0-450) /uL Baso # (Auto) (0-100) /uL PT (10.1-12.7) SECONDS INR (0.9-1.3) APTT (26.4-36.2) SECONDS Sodium (137-145) mmol/L Potassium (3.4-5.1) mmol/L Chloride (98-107) mmol/L Carbon Dioxide (22-32) mmol/L BUN (9-20) mg/dL Creatinine (0.66-1.25) mg/dL Estimated GFR (>60) mL/min BUN/Creatinine Ratio (6-22) Glucose (80-110) mg/dL Calcium (8.4-10.2) mg/dL Total Bilirubin (0.2-1.3) mg/dL AST (17-59) IU/L ALT (<50) IU/L Alkaline Phosphatase (38-126) U/L Total Creatine Kinase (55-170) U/L CK-MB (CK-2) (<2.37) ng/mL CK-MB (CK-2) Rel Index (1.5-5.0) % Troponin I 0.027 (0.01-0.034) ng/mL NT-Pro-B Natriuret Pep 821 H (<125) pg/mL Total Protein (6.3-8.2) g/dL Albumin (3.5-5.0) g/dL Globulin (1.7-4.1) g/dL Albumin/Globulin Ratio (1.0-2.8) Lipase (23-300) U/L Imaging Data Chest x-ray: Radiologist's Impression: FINDINGS: Surgical changes and devices: None. Lungs and pleura: Lungs are clear. No pleural effusions or pneumothorax. Mediastinum: Mediastinal contours appear normal. Heart size is normal Bones and chest wall: No suspicious bony lesions. Overlying soft tissues appear unremarkable. IMPRESSION: No acute cardiopulmonary disease. Dictated by: Rosenda Angulo M.D. on 10/01/2020 at 11:58 ECG Data Attestation: I personally reviewed and interpreted this ECG as follows: Interpretation: Sinus rhythm at a rate of 83 Leftward axis poor baseline #2 Sinus rhythm at a rate of 74 Left bundle-branch block No acute ischemic changes MDM Narrative Medical decision making narrative: 70-year-old gentleman with fleeting episode of chest pain behavior indicated this morning. Workup is unremarkable and repeat troponin is reassuring. EKG does not suggest acute coronary syndrome or ischemic findings. His chest x-ray does have a bit more cardiomegaly and mild interstitial increases and his proBNP is slightly elevated. I suspect that the mild exertional dyspnea that he is noticing is from volume overload. Will ask him to increase his Lasix from 20 mg to 40 mg and follow-up with his primary caregiver over the next 2 weeks. He may benefit from outpatient cardiac risk stratification or exercise testing. He is safe for home discharge at this time Discharge Plan Departure Patient Disposition: Home Clinical Impression: Exertional dyspnea Congestive heart failure Qualifiers: Heart failure type: unspecified Heart failure chronicity: acute on chronic Qualified Code(s): I50.9 - Heart failure, unspecified Instructions: DI for Heart Failure Activity Restrictions/Additional Instructions: Thank you for coming in today I did not find any evidence for heart attack or heart attack type syndrome today. There is no evidence of other life-threatening issue appreciated on the workup today. I do think that your congestive heart failure is causing a bit more fluid overload and this explains the shortness of breath at your experiencing with exercise. You currently take 20 mg of furosemide daily and I am going to ask you to increase this to 40 mg daily. Please follow-up with your primary care physician in the next 1-2 weeks to see how your feeling and decide if this higher dose of furosemide should be continued. If you feel that things are getting worse rear having new symptoms, please return to the emergency department Prescriptions: No Action mupirocin 2 % ointment 1 applic TOP TID Qty: 30 RF: 0 (DME) Light pressure salma hose Qty: 1 RF: 0 (DME) Donut Pillow Qty: 1 RF: 0 (DME) Medium to high pressure socks Qty: 1 RF: 0 insulin regular human [Humulin R Regular U-100 Insuln] 100 unit/mL solution See Rx Instructions SUBCUT TIDAC Qty: 10 RF: 12 (DME) Syringes: Ultra Fine Insulin Syringe w/Needle 0 .Route .MEDSUPPLY Qty: 100 RF: 3 zinc oxide 20 % ointment 1 applictn TOP BID PRN (Reason: skin irritation) Qty: 56.7 RF: 0 albuterol sulfate [ProAir HFA] 90 mcg/actuation HFA aerosol inhaler See Rx Instructions .ROUTE .COMPLEX Qty: 8.5 RF: 3 lisinopril 2.5 mg tablet 2.5 mg PO DAILY Qty: 90 RF: 3 triamcinolone acetonide 0.1 % cream See Rx Instructions .ROUTE .COMPLEX Qty: 30 RF: 2 cyclobenzaprine 10 mg tablet 10 mg PO BEDTIME PRN (Reason: muscle spasm) Qty: 90 RF: 1 fluoxetine 20 mg capsule 20 mg PO DAILY Qty: 90 RF: 1 Lantus Solostar U-100 Insulin 100 unit/mL (3 mL) insulin pen See Rx Instructions SUBCUT .COMPLEX Qty: 30 RF: 11 Eliquis 5 mg tablet 2.5 mg PO BID Qty: 180 RF: 1 quetiapine 25 mg tablet See Rx Instructions .ROUTE .COMPLEX Qty: 90 RF: 3 insulin lispro [Humalog KwikPen Insulin] 100 unit/mL insulin pen 5 unit SUBCUT DAILY Qty: 15 RF: 5 potassium chloride 20 mEq tablet,ER particles/crystals See Rx Instructions .ROUTE .COMPLEX Qty: 90 RF: 0 tamsulosin [Flomax] 0.4 mg capsule 0.4 mg PO BID Qty: 180 RF: 1 finasteride 5 mg tablet 5 mg PO DAILY Qty: 90 RF: 1 pen needle, diabetic [BD Ultra-Fine Short Pen Needle] 31 gauge x 5/16 needle See Rx Instructions .ROUTE .COMPLEX Qty: 100 RF: 0 hydrocodone-acetaminophen 5-325 mg tablet 1 tab PO QID PRN (Reason: pain) Qty: 120 RF: 0 furosemide 20 mg tablet See Rx Instructions .ROUTE .COMPLEX Qty: 90 RF: 0 blood sugar diagnostic [NapatechTouch Verio test strips] Strip See Rx Instructions .ROUTE .COMPLEX Qty: 300 RF: 0 simvastatin 40 mg tablet See Rx Instructions .ROUTE .COMPLEX Qty: 90 RF: 0 aspirin [Adult Aspirin Regimen] 81 mg tablet,delayed release (DR/EC) 81 mg PO DAILY RF: 0 polyethylene glycol 3350 17 gram powder in packet 17 g PO DAILY Qty: 30 RF: 2 sennosides [senna] 8.6 mg Tablet 25.8 mg PO Q12H RF: 0 docusate calcium 240 mg Capsule 240 mg PO QID RF: 0 Lancet: Device 1 st INJ QID RF: 0 magnesium citrate solution 150 ml PO BID PRN (Reason: constipation) Qty: 296 RF: 0 Referrals: Edil Lyons DO [Primary Care Provider] -
[2020-10-01] MEDS: FUROSEMIDE 40 MG/4 ML VIAL IV (15:09)
[2020-10-01 15:27] LABS: NT-proBNP (BNP-Adult 18+) 821 pg/mL (<125); Troponin I 0.027 ng/mL (0.01-0.034)
== END 2020-10-01 15:56 | disposition home or self-care (01) ==
PROVIDERS: Emergency Medicine; Emergency Provider Emergency Medicine; PCP Family Medicine
DX: R07.89 Other chest pain (principal); I50.9 Heart failure, unspecified; R06.00 Dyspnea, unspecified
CPT/HCPCS: 36415; 71045; 80053; 82550; 82553; 83690; 83880; 84484; 85025; 85610; 85730; 93005; 96374; 99284; J1940

== ENCOUNTER 2020-10-12 16:02 | Inpatient (IN) | payer MEDICARE, MEDICAID, SELFPAY ==
[2020-10-12] VITALS (21 sets, daily range): BP systolic 104–162; BP diastolic 54–78; PULSE 59–90; RESP 10–31; TEMP 36.5–36.7; O2SAT 91–96; BMI 39.0; BMI 38.4
--- NOTE | 2020-10-12 16:15 | DI.RAD.S_ITS ---
PROCEDURE: XR CHEST 1V INDICATIONS: chest pain TECHNIQUE: One view of the chest was acquired. COMPARISON: [facility], CR, XR CHEST 1V, 10/01/2020, 12:33. FINDINGS: Surgical changes and devices: None. Lungs and pleura: Patchy opacities noted in the lungs bilaterally. No pleural effusions or pneumothorax. Mediastinum: Mediastinal contours appear normal. Heart size is normal. Bones and chest wall: No suspicious bony lesions. Overlying soft tissues appear unremarkable. IMPRESSION: Patchy bilateral lung opacities suspicious for multilobar pneumonia. Dictated by: Rashmi Jeffries MD, PhD on 10/12/2020 at 16:47 Approved by: Rashmi Jeffries MD, PhD on 10/12/2020 at 16:48
--- NOTE | 2020-10-12 16:29 | ED.CHESTPAIN ---
HPI - Chest Pain <Leanne Lomax, DO - Last Filed: 10/18/20 14:17> General Chief Complaint: Chest Pain Stated Complaint: trouble breathing, chest pain Time Seen by Provider: 10/12/20 16:25 Source: patient Mode of arrival: Ambulatory Limitations: no limitations History of Present Illness HPI narrative: The patient is a 70-year-old gentleman history of ischemic stroke and craniotomy currently on apixaban with communication difficulties secondary to stroke. He also has a history of coronary artery disease, congestive heart failure hypertension hyperlipidemia diabetes with a BMI of 39 presenting today with severe chest pain and shortness of breath. states that she typically talks for him although he is able to communicate some. She says he went to lay down and then she heard him moaning and screaming which is very atypical for him. He did say he had change in his chest. I was able to get from him that may be was like his previous and I. She he also seemed that he was short of breath as well. He was doing well earlier today. He has actually seen and evaluated here on 10/01/2020 his and found to have congestive heart failure. His medication was adjusted he was actually seen by his PCP after that visit and had his Lasix changed. He now takes 2 in the morning and 1 at 3:00 p.m.. She certainly seems more comfortable now but while he was moving for the chest x-ray he was was moaning and in quite severe pain. He does not have any back pain no fever or chills. MD complaint: chest pain Duration: constant Related Data Home Medications Medication Instructions Recorded Confirmed Lancet: Device 1 st INJ QID 02/23/19 10/13/20 docusate calcium 240 mg PO QID 02/23/19 10/13/20 sennosides [senna] 25.8 mg PO Q12H 02/23/19 10/08/20 aspirin 81 mg tablet,delayed 81 mg PO DAILY 06/07/19 10/12/20 release furosemide 20 mg PO DAILY 10/12/20 10/12/20 furosemide 40 mg PO QAM 10/12/20 10/12/20 hydrocodone-acetaminophen 1 tab PO BID 10/12/20 10/12/20 simvastatin 40 mg PO BEDTIME 10/12/20 10/12/20 Previous Rx's Medication Instructions Recorded insulin regular human 100 unit/mL See Rx Instructions SUBCUT TIDAC 11/05/17 injection solution #10 ml Syringes: Ultra Fine Insulin #100 each 02/14/18 Syringe w/Needle Light pressure salma hose #1 ea 07/05/18 Donut Pillow #1 ea 07/06/18 zinc oxide 20 % topical ointment 1 applictn TOP BID PRN #56.7 gram 07/07/18 Medium to high pressure socks #1 ea 09/06/18 magnesium citrate 150 ml PO BID PRN #296 ml 02/23/19 ProAir HFA 90 mcg/actuation See Rx Instructions .ROUTE 10/16/19 aerosol inhaler .COMPLEX #8.5 gram NS mupirocin 2 % topical ointment 1 applic TOP TID #30 gram 02/24/20 Lantus Solostar U-100 Insulin 100 See Rx Instructions SUBCUT 04/25/20 unit/mL (3 mL) subcutaneous pen .COMPLEX #30 day NS apixaban 5 mg tablet 2.5 mg PO BID #180 tab 05/06/20 quetiapine 25 mg tablet See Rx Instructions .ROUTE 06/25/20 .COMPLEX #90 tab insulin lispro 100 unit/mL 5 unit SUBCUT DAILY #15 ml 07/17/20 subcutaneous pen potassium chloride 20 mEq See Rx Instructions .ROUTE 07/23/20 tablet,extended release(part/cryst) .COMPLEX #90 tab finasteride 5 mg tablet 5 mg PO DAILY #90 tab 08/07/20 tamsulosin 0.4 mg capsule 0.4 mg PO BID #180 cap 08/07/20 blood sugar diagnostic See Rx Instructions .ROUTE 09/17/20 .COMPLEX #300 strip cyclobenzaprine 10 mg tablet See Rx Instructions .ROUTE 10/01/20 .COMPLEX #90 tab fluoxetine 20 mg capsule See Rx Instructions .ROUTE 10/08/20 .COMPLEX #90 cap polyethylene glycol 3350 17 gram See Rx Instructions .ROUTE 10/08/20 oral powder packet .COMPLEX #30 ea triamcinolone acetonide 0.1 % See Rx Instructions .ROUTE 10/09/20 topical cream .COMPLEX #30 g lisinopril 2.5 mg tablet See Rx Instructions .ROUTE 10/14/20 .COMPLEX #90 tab pen needle, diabetic 31 gauge x See Rx Instructions .ROUTE 04/19/21 5/16 .COMPLEX #100 ea Allergies Allergy/AdvReac Type Severity Reaction Status Date / Time triamcinolone Allergy Mild Hives Verified 10/12/20 16:07 Review of Systems <Leanne Lomax DO - Last Filed: 10/18/20 14:17> Review of Systems ROS Unobtainable: All systems reviewed & are unremarkable except as noted in HPI and below Constitutional Constitutional: Denies body ache(s), Denies chills and Denies fatigue Cardiovascular Cardiovascular: Reports as per HPI and Reports dyspnea Respiratory Respiratory: Denies chest congestion and Reports dyspnea Gastrointestinal Gastrointestinal: Denies abdominal pain, Denies nausea and Denies vomiting Musculoskeletal Musculoskeletal: Denies deformity and Denies numbness Integumentary/Breasts Skin/Breast: Denies pruritus, Denies erythema, Denies rash and Denies wounds Neurologic Neurologic: Denies vertigo and Denies numbness Endocrine Endocrine: Denies fatigue Patient History <Leanne Lomax DO - Last Filed: 10/18/20 14:17> Medical History Atrial fibrillation (02/21/15) Benign prostatic hyperplasia BPH (benign prostatic hyperplasia) Cardiomyopathy (02/21/15) Cataracts, bilateral (07/26/17) CHF (congestive heart failure) Chronic neck pain Coronary artery disease Diabetes Hematuria (~2016) History of CVA (cerebrovascular accident) (07/12/16) Hyperlipidemia Hypertension Lower extremity edema Peripheral vascular disease PVD (peripheral vascular disease) Renal failure Status post myocardial infarction (1994) Surgical History History of cranioplasty (10/30/16) History of surgery on arm History of vasectomy S/P TURP (10/19/13) Status post craniectomy (07/12/16) Family History Mother Age: 90 Dementia Father Cancer Social History household members: spouse Smoking Status: Former smoker second hand exposure: No alcohol intake: never substance use type: does not use Smoking Status: Former smoker Substance Use Type: does not use Exam <Leanne Lomax DO - Last Filed: 10/18/20 14:17> Initial Vital Signs Initial Vital Signs: Vital Signs Temperature 98.1 F 10/12/20 16:07 Pulse Rate 59 L 10/12/20 16:07 Respiratory Rate 18 10/12/20 16:07 Blood Pressure 128/67 10/12/20 16:07 Pulse Oximetry 92 10/12/20 16:07 GENERAL: Alert male appears uncomfortable BMI 39 HEENT: Head atraumatic,EOMI, pupils reactive, face symmetric, moist mucous membranes CARDIOVASCULAR: Dear regular no murmurs pain is not reproducible to palpation RESPIRATORY: Breath sounds equal bilaterally, no wheezes rales or rhonchi. Decreased breath sounds bilaterally ABDOMEN: Soft, nontender. Normoactive bowel sounds all 4 quadrants. No guarding or rebound. EXTREMITIES: Normal range of motion, no clubbing or edema. Neurovascularly intact NEUROLOGICAL: Alert able to follow commands trying to communicate but certainly have aphasia secondary to stroke SKIN: Warm, dry, no laceration, no petechiae, no rashes or lesions. <Luis Caldwell, DO - Last Filed: 10/12/20 22:46> Initial Vital Signs Initial Vital Signs: Vital Signs Temperature 98.1 F 10/12/20 16:07 Pulse Rate 59 L 10/12/20 16:07 Respiratory Rate 18 10/12/20 16:07 Blood Pressure 128/67 10/12/20 16:07 Pulse Oximetry 92 10/12/20 16:07 Course <Leanne Lomax, DO - Last Filed: 10/18/20 14:17> Orders Ordered: Discontinued Medications Acetaminophen (Acetaminophen 325 Mg Tablet) 650 mg PO Q6HR PRN PRN Reason: Fever/Mild Pain (1-3) Hydrocodone Bitart/Acetaminophen (Hydrocodone/Acet 5/325 Tablet) 1 tab PO BID [facility] Last Admin: 10/12/20 22:09 Dose: 1 tab Documented by: MARIZA Albuterol (Albuterol Hfa Mdi 60 Puff/8 Gm Inhaler) 0 puff INH .COMPLEX [facility] Albuterol (Albuterol Hfa Mdi 60 Puff/8 Gm Inhaler) 2 puff INH Q6H PRN PRN Reason: shortness of breath Apixaban (Apixaban 5 Mg Tablet) 2.5 mg PO BID [facility] Last Admin: 10/12/20 22:09 Dose: 2.5 mg Documented by: MARIZA Aspirin (Aspirin Ec 81 Mg Tablet) 81 mg PO DAILY [facility] Dextrose (Dextrose 50 % In Water 25 Gm/50 Ml Syringe) 25 gm IV PRN PRN PRN Reason: Hypoglycemia Docusate Sodium (Docusate 250 Mg Capsule) 250 mg PO QID [facility] Finasteride (Finasteride 5 Mg Tablet) 5 mg PO DAILY [facility] Furosemide (Furosemide 40 Mg/4 Ml Vial) 40 mg IV NOW ONE Stop: 10/12/20 16:44 Last Admin: 10/12/20 16:49 Dose: 40 mg Documented by: KIRT Insulin Aspart (Insulin Aspart 100 Unit/Ml Insuln Pen) 5 unit SUBCUT DAILY [facility]; Protocol Insulin Aspart (Insulin Aspart 100 Unit/Ml Insuln Pen) 0 unit SUBCUT ACHS [facility]; Protocol Insulin Glargine (Insulin Glargine 100 Unit/Ml 3ml Pen) 80 unit SUBCUT 2100 [facility] Insulin Glargine (Insulin Glargine 100 Unit/Ml 3ml Pen) 40 unit SUBCUT DAILY [facility] Insulin Glargine (Insulin Glargine 100 Unit/Ml 3ml Pen) 80 unit SUBCUT 2100 [facility] Last Admin: 10/12/20 22:29 Dose: 80 unit Documented by: MARIZA Cosigned by: HERNESTO Lisinopril (Lisinopril 5 Mg Tablet) 2.5 mg PO DAILY [facility] Morphine Sulfate (Morphine 2 Mg/Ml Inj) 2 mg IV Q5MIN PRN PRN Reason: Chest Pain Naloxone HCl (Naloxone 0.4 Mg/Ml Vial) 0.2 mg IV Q2MIN PRN PRN Reason: Opiate Reversal Nitroglycerin (Nitroglycerin 0.4 Mg Sl Tab) 0.4 mg SL NOW ONE Stop: 10/12/20 16:44 Last Admin: 10/12/20 16:49 Dose: 0.4 mg Documented by: KIRT Nitroglycerin (Nitroglycerin 0.4 Mg Sl Tab) 0.4 mg SL [id number] PRN PRN Reason: Chest Pain Ondansetron HCl (Ondansetron 4 Mg/2 Ml Inj) 4 mg IV Q8HR PRN PRN Reason: Nausea And Vomiting Polyethylene Glycol (Polyethylene Glycol 3350 17 Gm Powd.Pack) 17 gm PO DAILY [facility] Quetiapine Fumarate (Quetiapine 25 Mg Tablet) 25 mg PO BEDTIME [facility] Last Admin: 10/12/20 22:09 Dose: 25 mg Documented by: MARIZA Sennosides (Sennosides 8.6 Mg Tablet) 25.8 mg PO Q12H [facility] Last Admin: 10/12/20 22:11 Dose: 25.8 mg Documented by: MARIZA Simvastatin (Simvastatin 40 Mg Tablet) 40 mg PO BEDTIME [facility] Last Admin: 10/12/20 22:08 Dose: 40 mg Documented by: MARIZA Tamsulosin HCl (Tamsulosin 0.4 Mg Capsule) 0.4 mg PO BID [facility] Last Admin: 10/12/20 22:08 Dose: 0.4 mg Documented by: MARIZA Vital Signs Vital signs: Vital Signs - 8 hr 10/12/20 16:07 10/12/20 16:15 10/12/20 16:30 Temperature 98.1 F Pulse Rate 59 L 90 86 Respiratory Rate 18 23 23 Blood Pressure 128/67 Pulse Oximetry 92 91 92 10/12/20 16:32 10/12/20 16:49 10/12/20 17:00 Temperature Pulse Rate 85 84 83 Respiratory Rate 23 21 Blood Pressure 125/60 125/60 118/63 Pulse Oximetry 92 91 10/12/20 17:26 10/12/20 17:30 10/12/20 17:40 Temperature Pulse Rate 83 84 88 Respiratory Rate 18 20 31 H Blood Pressure 113/69 127/59 L 105/58 L Pulse Oximetry 94 96 10/12/20 17:50 10/12/20 18:00 10/12/20 18:10 Temperature Pulse Rate 87 81 85 Respiratory Rate 21 19 16 Blood Pressure 162/78 H 133/61 117/54 L Pulse Oximetry 95 95 94 10/12/20 18:20 10/12/20 18:30 10/12/20 19:00 Temperature Pulse Rate 85 80 81 Respiratory Rate 22 24 18 Blood Pressure 122/66 123/60 Pulse Oximetry 93 94 96 10/12/20 19:27 10/12/20 19:30 10/12/20 19:40 Temperature Pulse Rate 87 88 79 Respiratory Rate 10 L 19 17 Blood Pressure 114/54 L 130/61 128/60 Pulse Oximetry 94 95 95 10/12/20 19:50 Temperature Pulse Rate 78 Respiratory Rate 22 Blood Pressure 119/59 L Pulse Oximetry 94 <DO Caterina Velez Last Filed: 10/12/20 22:46> Course Course Narrative: Patient received in sign-out from Dr. Lomax. I performed an independent history and physical exam and have no significant additions. Currently awaiting a repeat troponin Patient continues to be at his current baseline. Second troponin came back only very slightly elevated at which point I discussed with on-call Cardiology (Chaitanya) who would suggest that this continued indeterminate troponin is most likely due to acute CHF and recommends keeping the patient here, continuing to diurese, performing echo and should patient develop EKG changes, significant lab abnormalities he would be a candidate for transfer but not thus far Orders Ordered: Discontinued Medications Acetaminophen (Acetaminophen 325 Mg Tablet) 650 mg PO Q6HR PRN PRN Reason: Fever/Mild Pain (1-3) Hydrocodone Bitart/Acetaminophen (Hydrocodone/Acet 5/325 Tablet) 1 tab PO BID [facility] Last Admin: 10/12/20 22:09 Dose: 1 tab Documented by: MARIZA Albuterol (Albuterol Hfa Mdi 60 Puff/8 Gm Inhaler) 0 puff INH .COMPLEX [facility] Albuterol (Albuterol Hfa Mdi 60 Puff/8 Gm Inhaler) 2 puff INH Q6H PRN PRN Reason: shortness of breath Apixaban (Apixaban 5 Mg Tablet) 2.5 mg PO BID [facility] Last Admin: 10/12/20 22:09 Dose: 2.5 mg Documented by: MARIZA Aspirin (Aspirin Ec 81 Mg Tablet) 81 mg PO DAILY [facility] Dextrose (Dextrose 50 % In Water 25 Gm/50 Ml Syringe) 25 gm IV PRN PRN PRN Reason: Hypoglycemia Docusate Sodium (Docusate 250 Mg Capsule) 250 mg PO QID [facility] Finasteride (Finasteride 5 Mg Tablet) 5 mg PO DAILY [facility] Furosemide (Furosemide 40 Mg/4 Ml Vial) 40 mg IV NOW ONE Stop: 10/12/20 16:44 Last Admin: 10/12/20 16:49 Dose: 40 mg Documented by: KIRT Insulin Aspart (Insulin Aspart 100 Unit/Ml Insuln Pen) 5 unit SUBCUT DAILY [facility]; Protocol Insulin Aspart (Insulin Aspart 100 Unit/Ml Insuln Pen) 0 unit SUBCUT ACHS [facility]; Protocol Insulin Glargine (Insulin Glargine 100 Unit/Ml 3ml Pen) 80 unit SUBCUT 2100 [facility] Insulin Glargine (Insulin Glargine 100 Unit/Ml 3ml Pen) 40 unit SUBCUT DAILY [facility] Insulin Glargine (Insulin Glargine 100 Unit/Ml 3ml Pen) 80 unit SUBCUT 2100 [facility] Last Admin: 10/12/20 22:29 Dose: 80 unit Documented by: MARIZA Cosigned by: HERNESTO Lisinopril (Lisinopril 5 Mg Tablet) 2.5 mg PO DAILY [facility] Morphine Sulfate (Morphine 2 Mg/Ml Inj) 2 mg IV Q5MIN PRN PRN Reason: Chest Pain Naloxone HCl (Naloxone 0.4 Mg/Ml Vial) 0.2 mg IV Q2MIN PRN PRN Reason: Opiate Reversal Nitroglycerin (Nitroglycerin 0.4 Mg Sl Tab) 0.4 mg SL NOW ONE Stop: 10/12/20 16:44 Last Admin: 10/12/20 16:49 Dose: 0.4 mg Documented by: KIRT Nitroglycerin (Nitroglycerin 0.4 Mg Sl Tab) 0.4 mg SL [id number] PRN PRN Reason: Chest Pain Ondansetron HCl (Ondansetron 4 Mg/2 Ml Inj) 4 mg IV Q8HR PRN PRN Reason: Nausea And Vomiting Polyethylene Glycol (Polyethylene Glycol 3350 17 Gm Powd.Pack) 17 gm PO DAILY [facility] Quetiapine Fumarate (Quetiapine 25 Mg Tablet) 25 mg PO BEDTIME [facility] Last Admin: 10/12/20 22:09 Dose: 25 mg Documented by: MARIZA Sennosides (Sennosides 8.6 Mg Tablet) 25.8 mg PO Q12H [facility] Last Admin: 10/12/20 22:11 Dose: 25.8 mg Documented by: MARIZA Simvastatin (Simvastatin 40 Mg Tablet) 40 mg PO BEDTIME [facility] Last Admin: 10/12/20 22:08 Dose: 40 mg Documented by: MARIZA Tamsulosin HCl (Tamsulosin 0.4 Mg Capsule) 0.4 mg PO BID [facility] Last Admin: 10/12/20 22:08 Dose: 0.4 mg Documented by: MARIZA Vital Signs Vital signs: Vital Signs - 8 hr 10/12/20 16:07 10/12/20 16:15 10/12/20 16:30 Temperature 98.1 F Pulse Rate 59 L 90 86 Respiratory Rate 18 23 23 Blood Pressure 128/67 Pulse Oximetry 92 91 92 10/12/20 16:32 10/12/20 16:49 10/12/20 17:00 Temperature Pulse Rate 85 84 83 Respiratory Rate 23 21 Blood Pressure 125/60 125/60 118/63 Pulse Oximetry 92 91 10/12/20 17:26 10/12/20 17:30 10/12/20 17:40 Temperature Pulse Rate 83 84 88 Respiratory Rate 18 20 31 H Blood Pressure 113/69 127/59 L 105/58 L Pulse Oximetry 94 96 10/12/20 17:50 10/12/20 18:00 10/12/20 18:10 Temperature Pulse Rate 87 81 85 Respiratory Rate 21 19 16 Blood Pressure 162/78 H 133/61 117/54 L Pulse Oximetry 95 95 94 10/12/20 18:20 10/12/20 18:30 10/12/20 19:00 Temperature Pulse Rate 85 80 81 Respiratory Rate 22 24 18 Blood Pressure 122/66 123/60 Pulse Oximetry 93 94 96 10/12/20 19:27 10/12/20 19:30 10/12/20 19:40 Temperature Pulse Rate 87 88 79 Respiratory Rate 10 L 19 17 Blood Pressure 114/54 L 130/61 128/60 Pulse Oximetry 94 95 95 10/12/20 19:50 Temperature Pulse Rate 78 Respiratory Rate 22 Blood Pressure 119/59 L Pulse Oximetry 94 MDM - Chest Pain <Leanne Lomax, DO - Last Filed: 10/18/20 14:17> Lab Data Attestation: I reviewed the patient's lab results. Result diagrams: 10/13/20 04:51 10/13/20 04:51 Labs: Lab Results 10/12/20 10/12/20 10/12/20 Range/Units 16:30 16:30 16:30 WBC 10.9 (4.5-11.0) X10^3/uL RBC 4.59 (4.5-5.9) X10^6/uL Hgb 13.0 L (13.5-17.5) g/dL Hct 39.6 L (41-53) % MCV 86.4 (80-100) fL MCH 28.4 (26-34) PG MCHC 32.9 (30-36) % RDW 15.4 H (11.6-14.8) % Plt Count 232 (150-400) X10^3/uL Neut % (Auto) 73.2 (50-75) % Lymph % (Auto) 16.5 L (25-40) % [place] % (Auto) 7.5 (3-14) % Eos % (Auto) 2.1 (2-4) % Baso % (Auto) 0.7 (0-2) % Neut # (Auto) 8000 H (2769-1255) /uL Lymph # (Auto) 1800 (9984-9535) /uL [place] # (Auto) 800 (0-900) /uL Eos # (Auto) 200 (0-450) /uL Baso # (Auto) 100 (0-100) /uL PT 11.9 (10.1-12.7) SECONDS INR 1.0 (0.9-1.3) APTT 33 (26.4-36.2) SECONDS Sodium 133 L (137-145) mmol/L Potassium 4.5 (3.4-5.1) mmol/L Chloride 102 (98-107) mmol/L Carbon Dioxide 22 (22-32) mmol/L BUN 25 H (9-20) mg/dL Creatinine 1.11 (0.66-1.25) mg/dL Estimated GFR > 60.0 (>60) mL/min BUN/Creatinine Ratio 22.5 H (6-22) Glucose 249 H (80-110) mg/dL Hemoglobin A1c (4.0-6.0) % Calcium 9.2 (8.4-10.2) mg/dL Magnesium (1.6-2.3) mg/dL Total Bilirubin 0.7 (0.2-1.3) mg/dL AST 27 (17-59) IU/L ALT 20 (<50) IU/L Alkaline Phosphatase 71 (38-126) U/L Total Creatine Kinase 124 (55-170) U/L CK-MB (CK-2) 1.23 (<2.37) ng/mL CK-MB (CK-2) Rel Index 1.0 L (1.5-5.0) % Troponin I 0.059 H (0.01-0.034) ng/mL NT-Pro-B Natriuret Pep (<125) pg/mL Total Protein 7.1 (6.3-8.2) g/dL Albumin 4.0 (3.5-5.0) g/dL Globulin 3.1 (1.7-4.1) g/dL Albumin/Globulin Ratio 1.3 (1.0-2.8) Lipase 180 (23-300) U/L Procalcitonin (<0.5) ng/mL TSH (0.47-4.68) uIU/mL Urine Color Urine Appearance Urine pH (4.5-8.0) Ur Specific [place] (1.000-1.035) Urine Protein (Negative) Urine Glucose (UA) (Negative) g/dL Urine Ketones (NEGATIVE) Urine Occult Blood (Negative) Urine Nitrate (Negative) Urine Bilirubin (NEGATIVE) Urine Urobilinogen (0.2) E.U./dL Ur Leukocyte Esterase (NEGATIVE) Urine RBC (0-5/HPF) Urine WBC (0-5/HPF) Urine Bacteria (None) Ur Culture Indicated? SARS-CoV-2 (PCR) (Negative) 10/12/20 10/12/20 10/12/20 Range/Units 16:30 16:30 16:45 WBC (4.5-11.0) X10^3/uL RBC (4.5-5.9) X10^6/uL Hgb (13.5-17.5) g/dL Hct (41-53) % MCV (80-100) fL MCH (26-34) PG MCHC (30-36) % RDW (11.6-14.8) % Plt Count (150-400) X10^3/uL Neut % (Auto) (50-75) % Lymph % (Auto) (25-40) % [place] % (Auto) (3-14) % Eos % (Auto) (2-4) % Baso % (Auto) (0-2) % Neut # (Auto) (4973-4898) /uL Lymph # (Auto) (7803-9265) /uL [place] # (Auto) (0-900) /uL Eos # (Auto) (0-450) /uL Baso # (Auto) (0-100) /uL PT (10.1-12.7) SECONDS INR (0.9-1.3) APTT (26.4-36.2) SECONDS Sodium (137-145) mmol/L Potassium (3.4-5.1) mmol/L Chloride (98-107) mmol/L Carbon Dioxide (22-32) mmol/L BUN (9-20) mg/dL Creatinine (0.66-1.25) mg/dL Estimated GFR (>60) mL/min BUN/Creatinine Ratio (6-22) Glucose (80-110) mg/dL Hemoglobin A1c 7.4 H (4.0-6.0) % Calcium (8.4-10.2) mg/dL Magnesium (1.6-2.3) mg/dL Total Bilirubin (0.2-1.3) mg/dL AST (17-59) IU/L ALT (<50) IU/L Alkaline Phosphatase (38-126) U/L Total Creatine Kinase (55-170) U/L CK-MB (CK-2) (<2.37) ng/mL CK-MB (CK-2) Rel Index (1.5-5.0) % Troponin I (0.01-0.034) ng/mL NT-Pro-B Natriuret Pep 746 H (<125) pg/mL Total Protein (6.3-8.2) g/dL Albumin (3.5-5.0) g/dL Globulin (1.7-4.1) g/dL Albumin/Globulin Ratio (1.0-2.8) Lipase (23-300) U/L Procalcitonin (<0.5) ng/mL TSH (0.47-4.68) uIU/mL Urine Color Urine Appearance Urine pH (4.5-8.0) Ur Specific [place] (1.000-1.035) Urine Protein (Negative) Urine Glucose (UA) (Negative) g/dL Urine Ketones (NEGATIVE) Urine Occult Blood (Negative) Urine Nitrate (Negative) Urine Bilirubin (NEGATIVE) Urine Urobilinogen (0.2) E.U./dL Ur Leukocyte Esterase (NEGATIVE) Urine RBC (0-5/HPF) Urine WBC (0-5/HPF) Urine Bacteria (None) Ur Culture Indicated? SARS-CoV-2 (PCR) Negative (Negative) 10/12/20 10/12/20 10/12/20 Range/Units 18:00 18:35 18:35 WBC (4.5-11.0) X10^3/uL RBC (4.5-5.9) X10^6/uL Hgb (13.5-17.5) g/dL Hct (41-53) % MCV (80-100) fL MCH (26-34) PG MCHC (30-36) % RDW (11.6-14.8) % Plt Count (150-400) X10^3/uL Neut % (Auto) (50-75) % Lymph % (Auto) (25-40) % [place] % (Auto) (3-14) % Eos % (Auto) (2-4) % Baso % (Auto) (0-2) % Neut # (Auto) (1924-7778) /uL Lymph # (Auto) (0969-1713) /uL [place] # (Auto) (0-900) /uL Eos # (Auto) (0-450) /uL Baso # (Auto) (0-100) /uL PT (10.1-12.7) SECONDS INR (0.9-1.3) APTT (26.4-36.2) SECONDS Sodium (137-145) mmol/L Potassium (3.4-5.1) mmol/L Chloride (98-107) mmol/L Carbon Dioxide (22-32) mmol/L BUN (9-20) mg/dL Creatinine (0.66-1.25) mg/dL Estimated GFR (>60) mL/min BUN/Creatinine Ratio (6-22) Glucose (80-110) mg/dL Hemoglobin A1c (4.0-6.0) % Calcium (8.4-10.2) mg/dL Magnesium 2.2 (1.6-2.3) mg/dL Total Bilirubin (0.2-1.3) mg/dL AST (17-59) IU/L ALT (<50) IU/L Alkaline Phosphatase (38-126) U/L Total Creatine Kinase (55-170) U/L CK-MB (CK-2) (<2.37) ng/mL CK-MB (CK-2) Rel Index (1.5-5.0) % Troponin I 0.073 H (0.01-0.034) ng/mL NT-Pro-B Natriuret Pep (<125) pg/mL Total Protein (6.3-8.2) g/dL Albumin (3.5-5.0) g/dL Globulin (1.7-4.1) g/dL Albumin/Globulin Ratio (1.0-2.8) Lipase (23-300) U/L Procalcitonin (<0.5) ng/mL TSH (0.47-4.68) uIU/mL Urine Color Yellow Urine Appearance Clear Urine pH 6.0 (4.5-8.0) Ur Specific [place] 1.010 (1.000-1.035) Urine Protein Negative (Negative) Urine Glucose (UA) Negative (Negative) g/dL Urine Ketones Negative (NEGATIVE) Urine Occult Blood 3+ H (Negative) Urine Nitrate Negative (Negative) Urine Bilirubin Negative (NEGATIVE) Urine Urobilinogen 0.2 (0.2) E.U./dL Ur Leukocyte Esterase Negative (NEGATIVE) Urine RBC 10-30/hpf H (0-5/HPF) Urine WBC None seen (0-5/HPF) Urine Bacteria None seen (None) Ur Culture Indicated? Cult not indicated SARS-CoV-2 (PCR) (Negative) 10/12/20 10/12/20 Range/Units 18:35 18:35 WBC (4.5-11.0) X10^3/uL RBC (4.5-5.9) X10^6/uL Hgb (13.5-17.5) g/dL Hct (41-53) % MCV (80-100) fL MCH (26-34) PG MCHC (30-36) % RDW (11.6-14.8) % Plt Count (150-400) X10^3/uL Neut % (Auto) (50-75) % Lymph % (Auto) (25-40) % [place] % (Auto) (3-14) % Eos % (Auto) (2-4) % Baso % (Auto) (0-2) % Neut # (Auto) (3069-3556) /uL Lymph # (Auto) (2301-3136) /uL [place] # (Auto) (0-900) /uL Eos # (Auto) (0-450) /uL Baso # (Auto) (0-100) /uL PT (10.1-12.7) SECONDS INR (0.9-1.3) APTT (26.4-36.2) SECONDS Sodium (137-145) mmol/L Potassium (3.4-5.1) mmol/L Chloride (98-107) mmol/L Carbon Dioxide (22-32) mmol/L BUN (9-20) mg/dL Creatinine (0.66-1.25) mg/dL Estimated GFR (>60) mL/min BUN/Creatinine Ratio (6-22) Glucose (80-110) mg/dL Hemoglobin A1c (4.0-6.0) % Calcium (8.4-10.2) mg/dL Magnesium (1.6-2.3) mg/dL Total Bilirubin (0.2-1.3) mg/dL AST (17-59) IU/L ALT (<50) IU/L Alkaline Phosphatase (38-126) U/L Total Creatine Kinase (55-170) U/L CK-MB (CK-2) (<2.37) ng/mL CK-MB (CK-2) Rel Index (1.5-5.0) % Troponin I (0.01-0.034) ng/mL NT-Pro-B Natriuret Pep (<125) pg/mL Total Protein (6.3-8.2) g/dL Albumin (3.5-5.0) g/dL Globulin (1.7-4.1) g/dL Albumin/Globulin Ratio (1.0-2.8) Lipase (23-300) U/L Procalcitonin 0.05 (<0.5) ng/mL TSH 1.78 (0.47-4.68) uIU/mL Urine Color Urine Appearance Urine pH (4.5-8.0) Ur Specific [place] (1.000-1.035) Urine Protein (Negative) Urine Glucose (UA) (Negative) g/dL Urine Ketones (NEGATIVE) Urine Occult Blood (Negative) Urine Nitrate (Negative) Urine Bilirubin (NEGATIVE) Urine Urobilinogen (0.2) E.U./dL Ur Leukocyte Esterase (NEGATIVE) Urine RBC (0-5/HPF) Urine WBC (0-5/HPF) Urine Bacteria (None) Ur Culture Indicated? SARS-CoV-2 (PCR) (Negative) Point of Care Testing Glucose POC 290 Imaging Data Chest x-ray: Radiologist's Impression: PROCEDURE: XR CHEST 1V INDICATIONS: chest pain TECHNIQUE: One view of the chest was acquired. COMPARISON: [facility], , XR CHEST 1V, 10/01/2020, 12:33. FINDINGS: Surgical changes and devices: None. Lungs and pleura: Patchy opacities noted in the lungs bilaterally. No pleural effusions or pneumothorax. Mediastinum: Mediastinal contours appear normal. Heart size is normal. Bones and chest wall: No suspicious bony lesions. Overlying soft tissues appear unremarkable. IMPRESSION: Patchy bilateral lung opacities suspicious for multilobar pneumonia. Dictated by: Rashmi Jeffries MD, PhD on 10/12/2020 at 16:47 CT scan - chest: Radiologist's Impression: PROCEDURE: CT ANGIO CHEST ABDOMEN PELVIS INDICATIONS: disseciton severe pain TECHNIQUE: Precontrast 5 mm thick sections acquired from the lung apices to the iliac crests. After the administration of intravenous contrast, 2.5 mm thick sections again acquired from the lung apices to the iliac crests. Maximum intensity projection (MIP) oblique sagittal and coronal reformats were then acquired. For radiation dose reduction, the following was used: automated exposure control. COMPARISON: None. FINDINGS: Image quality: Excellent. AORTA: The aorta is normal in course and caliber throughout the chest, abdomen, and pelvis. No evidence of intramural hematoma. No dissection. There are vascular calcifications throughout the aorta and branch vessels. Calcifications are noted at the ostium of the celiac, superior mesenteric, and renal vessels which are otherwise patent. No evidence of high-grade stenosis throughout the visualized course. CHEST: Lungs and pleura: Bilateral pleural effusions. There is diffuse interstitial thickening and ground-glass opacities throughout the lungs. Mediastinum: Heart size is mildly enlarged. Marked multi-vessel coronary vascular calcifications. There is thinning of the left ventricular apex with aneurysmal dilation. Mildly enlarged mediastinal/hilar lymph nodes. The lymph nodes demonstrate a normal fatty hilum. The largest is a pretracheal lymph node which measures 1.8 centimeters in short axis diameter (5; 43) No pericardial effusion. Central pulmonary arteries are normal in size. Esophagus is normal in caliber. No hiatal hernias. Main pulmonary artery is normal in size. No central pulmonary embolus. Bones and chest wall: No axillary adenopathy by size criteria. Thyroid gland is unremarkable. No suspicious bony lesions. Multilevel degenerative changes of the spine. No vertebral body compression fractures. ABDOMEN: Vasculature: Celiac trunk and mesenteric arteries are patent. Renal arteries are also patent. Solid organs: Liver is normal in size and enhancement. Gallbladder is unremarkable. Biliary system is non dilated. Pancreas enhances normally. Spleen is normal in size and enhancement. No adrenal nodules. Both kidneys are normal in size and enhancement, without hydronephrosis. Nonobstructing 6 millimeter interpolar nephrolith within the right kidney. Peritoneum and bowel: No free fluid or air. Bowel loops are normal in caliber and wall thickness. Nodes and vessels: No retroperitoneal or mesenteric adenopathy by size criteria. Inferior vena cava is normal in morphology. Miscellaneous: No ventral hernias. PELVIS: Genitourinary: Bladder wall thickness is normal. Mild prostatomegaly with mass effect on the posterior bladder. Miscellaneous: Bilateral fat containing inguinal hernias. There is rectus diastasis with more focal small fat containing periumbilical hernia. No ventral hernias. Bones: No suspicious bony lesions. No vertebral body compression fractures. IMPRESSION: No evidence of dissection, intramural hematoma, high-grade stenosis, or other vascular abnormality of the intrathoracic or abdominal aorta and proximal branch vessels. 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 There is mild cardiomegaly and multi-vessel marked coronary vascular calcifications. Findings suggestive of CHF including small bilateral pleural effusions as well as interstitial and alveolar edema. Nonspecific mediastinal and hilar adenopathy. Nonobstructing right renal nephrolith. Dictated by: on 10/12/2020 at 16:37 ECG Data Attestation: I personally reviewed and interpreted this ECG as follows: Prior ECG tracings: available for review Interpretation: Frequent PVCs probable sinus left bundle-branch block no ST changes MDM Narrative Medical decision making narrative: Patient have crushing chest pain difficult to get good history for. Concern for dissection. 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 [address] rekha Lackey who reviewed patient's chart. No ischemic workup for any testing done since 2016. At that time he did have a very thin left ventricle so aneurysm is probably old. At this time with indeterminate troponin recommends echocardiogram stress test and troponin trending. 1820 doctors to call updated on cardiology results patient's symptoms and test results at this time request repeat troponin be back before he is accepts patient up Patient signed out to Dr. Caldwell for further medical management <Luis Caldwell, DO - Last Filed: 10/12/20 22:46> Lab Data Labs: Lab Results 10/12/20 10/12/20 10/12/20 Range/Units 16:30 16:30 16:30 WBC 10.9 (4.5-11.0) X10^3/uL RBC 4.59 (4.5-5.9) X10^6/uL Hgb 13.0 L (13.5-17.5) g/dL Hct 39.6 L (41-53) % MCV 86.4 (80-100) fL MCH 28.4 (26-34) PG MCHC 32.9 (30-36) % RDW 15.4 H (11.6-14.8) % Plt Count 232 (150-400) X10^3/uL Neut % (Auto) 73.2 (50-75) % Lymph % (Auto) 16.5 L (25-40) % [place] % (Auto) 7.5 (3-14) % Eos % (Auto) 2.1 (2-4) % Baso % (Auto) 0.7 (0-2) % Neut # (Auto) 8000 H (3457-2707) /uL Lymph # (Auto) 1800 (4813-5681) /uL [place] # (Auto) 800 (0-900) /uL Eos # (Auto) 200 (0-450) /uL Baso # (Auto) 100 (0-100) /uL PT 11.9 (10.1-12.7) SECONDS INR 1.0 (0.9-1.3) APTT 33 (26.4-36.2) SECONDS Sodium 133 L (137-145) mmol/L Potassium 4.5 (3.4-5.1) mmol/L Chloride 102 (98-107) mmol/L Carbon Dioxide 22 (22-32) mmol/L BUN 25 H (9-20) mg/dL Creatinine 1.11 (0.66-1.25) mg/dL Estimated GFR > 60.0 (>60) mL/min BUN/Creatinine Ratio 22.5 H (6-22) Glucose 249 H (80-110) mg/dL Hemoglobin A1c (4.0-6.0) % Calcium 9.2 (8.4-10.2) mg/dL Magnesium (1.6-2.3) mg/dL Total Bilirubin 0.7 (0.2-1.3) mg/dL AST 27 (17-59) IU/L ALT 20 (<50) IU/L Alkaline Phosphatase 71 (38-126) U/L Total Creatine Kinase 124 (55-170) U/L CK-MB (CK-2) 1.23 (<2.37) ng/mL CK-MB (CK-2) Rel Index 1.0 L (1.5-5.0) % Troponin I 0.059 H (0.01-0.034) ng/mL NT-Pro-B Natriuret Pep (<125) pg/mL Total Protein 7.1 (6.3-8.2) g/dL Albumin 4.0 (3.5-5.0) g/dL Globulin 3.1 (1.7-4.1) g/dL Albumin/Globulin Ratio 1.3 (1.0-2.8) Lipase 180 (23-300) U/L Procalcitonin (<0.5) ng/mL TSH (0.47-4.68) uIU/mL Urine Color Urine Appearance Urine pH (4.5-8.0) Ur Specific [place] (1.000-1.035) Urine Protein (Negative) Urine Glucose (UA) (Negative) g/dL Urine Ketones (NEGATIVE) Urine Occult Blood (Negative) Urine Nitrate (Negative) Urine Bilirubin (NEGATIVE) Urine Urobilinogen (0.2) E.U./dL Ur Leukocyte Esterase (NEGATIVE) Urine RBC (0-5/HPF) Urine WBC (0-5/HPF) Urine Bacteria (None) Ur Culture Indicated? SARS-CoV-2 (PCR) (Negative) 10/12/20 10/12/20 10/12/20 Range/Units 16:30 16:30 16:45 WBC (4.5-11.0) X10^3/uL RBC (4.5-5.9) X10^6/uL Hgb (13.5-17.5) g/dL Hct (41-53) % MCV (80-100) fL MCH (26-34) PG MCHC (30-36) % RDW (11.6-14.8) % Plt Count (150-400) X10^3/uL Neut % (Auto) (50-75) % Lymph % (Auto) (25-40) % [place] % (Auto) (3-14) % Eos % (Auto) (2-4) % Baso % (Auto) (0-2) % Neut # (Auto) (5390-2561) /uL Lymph # (Auto) (4614-9937) /uL [place] # (Auto) (0-900) /uL Eos # (Auto) (0-450) /uL Baso # (Auto) (0-100) /uL PT (10.1-12.7) SECONDS INR (0.9-1.3) APTT (26.4-36.2) SECONDS Sodium (137-145) mmol/L Potassium (3.4-5.1) mmol/L Chloride (98-107) mmol/L Carbon Dioxide (22-32) mmol/L BUN (9-20) mg/dL Creatinine (0.66-1.25) mg/dL Estimated GFR (>60) mL/min BUN/Creatinine Ratio (6-22) Glucose (80-110) mg/dL Hemoglobin A1c 7.4 H (4.0-6.0) % Calcium (8.4-10.2) mg/dL Magnesium (1.6-2.3) mg/dL Total Bilirubin (0.2-1.3) mg/dL AST (17-59) IU/L ALT (<50) IU/L Alkaline Phosphatase (38-126) U/L Total Creatine Kinase (55-170) U/L CK-MB (CK-2) (<2.37) ng/mL CK-MB (CK-2) Rel Index (1.5-5.0) % Troponin I (0.01-0.034) ng/mL NT-Pro-B Natriuret Pep 746 H (<125) pg/mL Total Protein (6.3-8.2) g/dL Albumin (3.5-5.0) g/dL Globulin (1.7-4.1) g/dL Albumin/Globulin Ratio (1.0-2.8) Lipase (23-300) U/L Procalcitonin (<0.5) ng/mL TSH (0.47-4.68) uIU/mL Urine Color Urine Appearance Urine pH (4.5-8.0) Ur Specific [place] (1.000-1.035) Urine Protein (Negative) Urine Glucose (UA) (Negative) g/dL Urine Ketones (NEGATIVE) Urine Occult Blood (Negative) Urine Nitrate (Negative) Urine Bilirubin (NEGATIVE) Urine Urobilinogen (0.2) E.U./dL Ur Leukocyte Esterase (NEGATIVE) Urine RBC (0-5/HPF) Urine WBC (0-5/HPF) Urine Bacteria (None) Ur Culture Indicated? SARS-CoV-2 (PCR) Negative (Negative) 10/12/20 10/12/20 10/12/20 Range/Units 18:00 18:35 18:35 WBC (4.5-11.0) X10^3/uL RBC (4.5-5.9) X10^6/uL Hgb (13.5-17.5) g/dL Hct (41-53) % MCV (80-100) fL MCH (26-34) PG MCHC (30-36) % RDW (11.6-14.8) % Plt Count (150-400) X10^3/uL Neut % (Auto) (50-75) % Lymph % (Auto) (25-40) % [place] % (Auto) (3-14) % Eos % (Auto) (2-4) % Baso % (Auto) (0-2) % Neut # (Auto) (2502-6975) /uL Lymph # (Auto) (0383-3528) /uL [place] # (Auto) (0-900) /uL Eos # (Auto) (0-450) /uL Baso # (Auto) (0-100) /uL PT (10.1-12.7) SECONDS INR (0.9-1.3) APTT (26.4-36.2) SECONDS Sodium (137-145) mmol/L Potassium (3.4-5.1) mmol/L Chloride (98-107) mmol/L Carbon Dioxide (22-32) mmol/L BUN (9-20) mg/dL Creatinine (0.66-1.25) mg/dL Estimated GFR (>60) mL/min BUN/Creatinine Ratio (6-22) Glucose (80-110) mg/dL Hemoglobin A1c (4.0-6.0) % Calcium (8.4-10.2) mg/dL Magnesium 2.2 (1.6-2.3) mg/dL Total Bilirubin (0.2-1.3) mg/dL AST (17-59) IU/L ALT (<50) IU/L Alkaline Phosphatase (38-126) U/L Total Creatine Kinase (55-170) U/L CK-MB (CK-2) (<2.37) ng/mL CK-MB (CK-2) Rel Index (1.5-5.0) % Troponin I 0.073 H (0.01-0.034) ng/mL NT-Pro-B Natriuret Pep (<125) pg/mL Total Protein (6.3-8.2) g/dL Albumin (3.5-5.0) g/dL Globulin (1.7-4.1) g/dL Albumin/Globulin Ratio (1.0-2.8) Lipase (23-300) U/L Procalcitonin (<0.5) ng/mL TSH (0.47-4.68) uIU/mL Urine Color Yellow Urine Appearance Clear Urine pH 6.0 (4.5-8.0) Ur Specific [place] 1.010 (1.000-1.035) Urine Protein Negative (Negative) Urine Glucose (UA) Negative (Negative) g/dL Urine Ketones Negative (NEGATIVE) Urine Occult Blood 3+ H (Negative) Urine Nitrate Negative (Negative) Urine Bilirubin Negative (NEGATIVE) Urine Urobilinogen 0.2 (0.2) E.U./dL Ur Leukocyte Esterase Negative (NEGATIVE) Urine RBC 10-30/hpf H (0-5/HPF) Urine WBC None seen (0-5/HPF) Urine Bacteria None seen (None) Ur Culture Indicated? Cult not indicated SARS-CoV-2 (PCR) (Negative) 10/12/20 10/12/20 Range/Units 18:35 18:35 WBC (4.5-11.0) X10^3/uL RBC (4.5-5.9) X10^6/uL Hgb (13.5-17.5) g/dL Hct (41-53) % MCV (80-100) fL MCH (26-34) PG MCHC (30-36) % RDW (11.6-14.8) % Plt Count (150-400) X10^3/uL Neut % (Auto) (50-75) % Lymph % (Auto) (25-40) % [place] % (Auto) (3-14) % Eos % (Auto) (2-4) % Baso % (Auto) (0-2) % Neut # (Auto) (0141-7813) /uL Lymph # (Auto) (6499-5731) /uL [place] # (Auto) (0-900) /uL Eos # (Auto) (0-450) /uL Baso # (Auto) (0-100) /uL PT (10.1-12.7) SECONDS INR (0.9-1.3) APTT (26.4-36.2) SECONDS Sodium (137-145) mmol/L Potassium (3.4-5.1) mmol/L Chloride (98-107) mmol/L Carbon Dioxide (22-32) mmol/L BUN (9-20) mg/dL Creatinine (0.66-1.25) mg/dL Estimated GFR (>60) mL/min BUN/Creatinine Ratio (6-22) Glucose (80-110) mg/dL Hemoglobin A1c (4.0-6.0) % Calcium (8.4-10.2) mg/dL Magnesium (1.6-2.3) mg/dL Total Bilirubin (0.2-1.3) mg/dL AST (17-59) IU/L ALT (<50) IU/L Alkaline Phosphatase (38-126) U/L Total Creatine Kinase (55-170) U/L CK-MB (CK-2) (<2.37) ng/mL CK-MB (CK-2) Rel Index (1.5-5.0) % Troponin I (0.01-0.034) ng/mL NT-Pro-B Natriuret Pep (<125) pg/mL Total Protein (6.3-8.2) g/dL Albumin (3.5-5.0) g/dL Globulin (1.7-4.1) g/dL Albumin/Globulin Ratio (1.0-2.8) Lipase (23-300) U/L Procalcitonin 0.05 (<0.5) ng/mL TSH 1.78 (0.47-4.68) uIU/mL Urine Color Urine Appearance Urine pH (4.5-8.0) Ur Specific [place] (1.000-1.035) Urine Protein (Negative) Urine Glucose (UA) (Negative) g/dL Urine Ketones (NEGATIVE) Urine Occult Blood (Negative) Urine Nitrate (Negative) Urine Bilirubin (NEGATIVE) Urine Urobilinogen (0.2) E.U./dL Ur Leukocyte Esterase (NEGATIVE) Urine RBC (0-5/HPF) Urine WBC (0-5/HPF) Urine Bacteria (None) Ur Culture Indicated? SARS-CoV-2 (PCR) (Negative) Point of Care Testing Glucose POC 290 Discharge Plan Departure Patient Disposition: Admitted as Observation Clinical Impression: Acute CHF Qualifiers: Heart failure type: unspecified Qualified Code(s): I50.9 - Heart failure, unspecified Chest pain Qualifiers: Chest pain type: unspecified Qualified Code(s): R07.9 - Chest pain, unspecified Admit Date/Time: 10/12/20 20:15 Admit Provider: Shanon Santos
[2020-10-12 16:42] LABS: Add Manual Diff / Slide Review NO; Basophils Absolute Auto 100 /uL (0-100); Basophils Percent Auto 0.7 % (0-2); Eosinophils Absolute Auto 200 /uL (0-450); Eosinophils Percent Auto 2.1 % (2-4); Hematocrit 39.6 % (41-53); Lymphocytes Absolute Auto 1800 /uL (1100-4500); Lymphocytes Percent Auto 16.5 % (25-40); Mean Corpuscular HGB Conc 32.9 % (30-36); Mean Corpuscular Hemoglobin 28.4 PG (26-34); Mean Corpuscular Volume 86.4 fL (80-100); Monocytes Absolute Auto 800 /uL (0-900); Monocytes Percent Auto 7.5 % (3-14); Neutrophils Absolute Auto 8000 /uL (1500-7000); Neutrophils Percent Auto 73.2 % (50-75); Platelet Count 232 X10^3/uL (150-400); Red Blood Cell Count 4.59 X10^6/uL (4.5-5.9); Red Cell Distribution Width 15.4 % (11.6-14.8); White Blood Cell Count 10.9 X10^3/uL (4.5-11.0)
[2020-10-12 16:43] LABS: Prothrombin Time 11.9 SECONDS (10.1-12.7)
--- NOTE | 2020-10-12 16:43 | DI.CT.S_ITS ---
PROCEDURE: CT ANGIO CHEST ABDOMEN PELVIS INDICATIONS: disseciton severe pain TECHNIQUE: Precontrast 5 mm thick sections acquired from the lung apices to the iliac crests. After the administration of intravenous contrast, 2.5 mm thick sections again acquired from the lung apices to the iliac crests. Maximum intensity projection (MIP) oblique sagittal and coronal reformats were then acquired. For radiation dose reduction, the following was used: automated exposure control. COMPARISON: None. FINDINGS: Image quality: Excellent. AORTA: The aorta is normal in course and caliber throughout the chest, abdomen, and pelvis. No evidence of intramural hematoma. No dissection. There are vascular calcifications throughout the aorta and branch vessels. Calcifications are noted at the ostium of the celiac, superior mesenteric, and renal vessels which are otherwise patent. No evidence of high-grade stenosis throughout the visualized course. CHEST: Lungs and pleura: Bilateral pleural effusions. There is diffuse interstitial thickening and ground-glass opacities throughout the lungs. Mediastinum: Heart size is mildly enlarged. Marked multi-vessel coronary vascular calcifications. There is thinning of the left ventricular apex with aneurysmal dilation. Mildly enlarged mediastinal/hilar lymph nodes. The lymph nodes demonstrate a normal fatty hilum. The largest is a pretracheal lymph node which measures 1.8 centimeters in short axis diameter (5; 43) No pericardial effusion. Central pulmonary arteries are normal in size. Esophagus is normal in caliber. No hiatal hernias. Main pulmonary artery is normal in size. No central pulmonary embolus. Bones and chest wall: No axillary adenopathy by size criteria. Thyroid gland is unremarkable. No suspicious bony lesions. Multilevel degenerative changes of the spine. No vertebral body compression fractures. ABDOMEN: Vasculature: Celiac trunk and mesenteric arteries are patent. Renal arteries are also patent. Solid organs: Liver is normal in size and enhancement. Gallbladder is unremarkable. Biliary system is non dilated. Pancreas enhances normally. Spleen is normal in size and enhancement. No adrenal nodules. Both kidneys are normal in size and enhancement, without hydronephrosis. Nonobstructing 6 millimeter interpolar nephrolith within the right kidney. Peritoneum and bowel: No free fluid or air. Bowel loops are normal in caliber and wall thickness. Nodes and vessels: No retroperitoneal or mesenteric adenopathy by size criteria. Inferior vena cava is normal in morphology. Miscellaneous: No ventral hernias. PELVIS: Genitourinary: Bladder wall thickness is normal. Mild prostatomegaly with mass effect on the posterior bladder. Miscellaneous: Bilateral fat containing inguinal hernias. There is rectus diastasis with more focal small fat containing periumbilical hernia. No ventral hernias. Bones: No suspicious bony lesions. No vertebral body compression fractures. IMPRESSION: No evidence of dissection, intramural hematoma, high-grade stenosis, or other vascular abnormality of the intrathoracic or abdominal aorta and proximal branch vessels. 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 There is mild cardiomegaly and multi-vessel marked coronary vascular calcifications. Findings suggestive of CHF including small bilateral pleural effusions as well as interstitial and alveolar edema. Nonspecific mediastinal and hilar adenopathy. Nonobstructing right renal nephrolith. Dictated by: on 10/12/2020 at 16:37 Approved by: on 10/12/2020 at 16:49
[2020-10-12 16:46] LABS: PTT Partial Thromboplastin Tim 33 SECONDS (26.4-36.2)
[2020-10-12 16:49] LABS: Alanine Aminotransferase 20 IU/L (<50); Albumin Globulin Ratio 1.3 (1.0-2.8); Alkaline Phosphatase 71 U/L (38-126); Aspartate Aminotransferase 27 IU/L (17-59); BUN Creatinine Ratio 22.5 (6-22); Bilirubin Total 0.7 mg/dL (0.2-1.3); Blood Urea Nitrogen 25 mg/dL (9-20); Calcium 9.2 mg/dL (8.4-10.2); Carbon Dioxide 22 mmol/L (22-32); Chloride 102 mmol/L (98-107); Creatine Kinase 124 U/L (55-170); Estimated Glomerular Filt Rate > 60.0 mL/min (>60); Globulin 3.1 g/dL (1.7-4.1); Glucose 249 mg/dL (80-110); HEMOLYSIS 15 (0-50); Lipase 180 U/L (23-300); Potassium 4.5 mmol/L (3.4-5.1); Sodium 133 mmol/L (137-145); Total Protein 7.1 g/dL (6.3-8.2)
[2020-10-12] MEDS: NITROGLYCERIN 0.4 MG SL TAB SL (16:49)
[2020-10-12] MEDS: FUROSEMIDE 40 MG/4 ML VIAL IV (16:49)
[2020-10-12 17:00] LABS: Troponin I 0.059 ng/mL (0.01-0.034)
[2020-10-12 17:03] LABS: COVID19 -Nasal RAPID Negative (Negative)
[2020-10-12 17:04] LABS: Creatine Kinase MB 1.23 ng/mL (<2.37)
[2020-10-12 17:53] LABS: NT-proBNP (BNP-Adult 18+) 746 pg/mL (<125)
[2020-10-12 18:50] LABS: Bacteria Urine None Seen; WBC Urine None Seen (0-5/HPF)
[2020-10-12 18:51] LABS: Appearance Urine UA CLEAR; Bilirubin Urine UA NEGATIVE (NEGATIVE); Color Urine UA YELLOW; Glucose Urine UA NEGATIVE (Negative); Ketones Urine UA NEGATIVE (NEGATIVE); Leukocyte Esterase Urine UA NEGATIVE (NEGATIVE); Nitrite Urine UA NEGATIVE (Negative); Occult Blood Urine UA 3+ (Negative); Protein Urine UA NEGATIVE (Negative); Urobilinogen Urine UA 0.2 E.U./dL (0.2)
[2020-10-12 19:01] LABS: Culture Indicated Urine Cult Not Indicated; RBC Urine 10-30/HPF (0-5/HPF)
[2020-10-12 19:06] LABS: Troponin I 0.073 ng/mL (0.01-0.034)
--- NOTE | 2020-10-12 20:51 | P.HP_ITS ---
History of Present Illness History of Present Illness Date Patient Seen: 10/12/20 Time Patient Seen: 20:51 Chief complaint: trouble breathing, chest pain Narrative: Jackie Hurley is a 70-year-old male with approximate 4 year history of having a hemorrhagic CVA treated at [facility], [place], atrial fibrillation anticoagulated on apixaban, HFrEF with a reduced ejection fraction, and diabetes presented to the emergency department with a complaint of chest pain. He has significant repeat residual deficits from the CVA and his Esperanza provides the history. She states that the pain started at 4:00 p.m. today and stated that he pointed to his chest and abdomen indicating that it hurt all over. He then points to the left side of his chest and she states that he was breathing heavily and decided to call paramedics. He had been seen here about 10 days ago with similar presentation of without chest pain was having difficulty breathing. The states that he did not complain of any nausea or vomiting, abdominal pain, dysuria, she states that he has chronic constipation and takes laxatives for such, she spends full time paramedic taking care of him. He presented and was seen and evaluated at [place] ED on 10/01/2020 his and found to have congestive heart failure. His medication was adjusted he was seen by his PCP after the ED visit and had his Lasix 40 mg in the morning and 40 mg at 3:00 p.m.. Chest x-ray ordered by the ED report is suggestive of bilateral basilar pneumonia, CT of the chest and abdomen indicates: No evidence of dissection, intramural hematoma, high-grade stenosis, or other vascular abnormality of the intrathoracic or abdominal aorta and proximal branch vessels. 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 There is mild cardiomegaly and multi-vessel marked coronary vascular calcifications. Findings suggestive of CHF including small bilateral pleural effusions as well as interstitial and alveolar edema. Nonspecific mediastinal and hilar adenopathy. Nonobstructing right renal nephrolith. He received a dose of nitroglycerin which relieved his pain. Patient is afebrile blood pressure 104/77 heart rate 80, respiratory rate 24, oxygen saturation of 94% on 2 L, he weighs 125 kg with a BMI of 38.4. He does not have a white count however has a mildly elevated neutrophil count at 8000, xray suggestive of a bilateral pneumonia. Troponins were elevated 2 hours apart at 0.059 and 0.073 respectively, glucose is 249 and his hemoglobin A1c was 7.4,proBNP was 746, UA was negative for UTI, and COVID-19 PCR was negative. Patient History Medical History Atrial fibrillation (02/21/15) Benign prostatic hyperplasia BPH (benign prostatic hyperplasia) Cardiomyopathy (02/21/15) Cataracts, bilateral (07/26/17) CHF (congestive heart failure) Chronic neck pain Coronary artery disease Diabetes Hematuria (~2016) History of CVA (cerebrovascular accident) (07/12/16) Hyperlipidemia Hypertension Lower extremity edema Peripheral vascular disease PVD (peripheral vascular disease) Renal failure Status post myocardial infarction (1994) Surgical History History of cranioplasty (10/30/16) History of surgery on arm History of vasectomy S/P TURP (10/19/13) Status post craniectomy (07/12/16) Family & Social History Family History Mother Age: 90 Dementia Father Cancer Safety & Behavioral: Feels Safe in Current Yes Environment Tobacco & Substance use: Smoking Status Former smoker alcohol intake never Substance Use Type does not use Meds Home Medications and Allergies Home Medications Medication Instructions Recorded Confirmed Type insulin regular human 100 unit/mL See Rx Instructions SUBCUT TIDAC 11/05/17 10/08/20 Rx injection solution #10 ml Syringes: Ultra Fine Insulin #100 each 02/14/18 10/08/20 Rx Syringe w/Needle Light pressure salma hose #1 ea 07/05/18 10/08/20 Rx Donut Pillow #1 ea 07/06/18 10/08/20 Rx zinc oxide 20 % topical ointment 1 applictn TOP BID PRN #56.7 gram 07/07/18 10/08/20 Rx Medium to high pressure socks #1 ea 09/06/18 10/08/20 Rx Lancet: Device 1 st INJ QID 02/23/19 10/13/20 History docusate calcium 240 mg PO QID 02/23/19 10/13/20 History magnesium citrate 150 ml PO BID PRN #296 ml 02/23/19 10/08/20 Rx sennosides [senna] 25.8 mg PO Q12H 02/23/19 10/08/20 History aspirin 81 mg tablet,delayed 81 mg PO DAILY 06/07/19 10/12/20 History release ProAir HFA 90 mcg/actuation See Rx Instructions .ROUTE 10/16/19 10/08/20 Rx aerosol inhaler .COMPLEX #8.5 gram NS lisinopril 2.5 mg tablet 2.5 mg PO DAILY #90 tab 11/17/19 10/12/20 Rx mupirocin 2 % topical ointment 1 applic TOP TID #30 gram 02/24/20 10/08/20 Rx Lantus Solostar U-100 Insulin 100 See Rx Instructions SUBCUT 04/25/20 10/12/20 Rx unit/mL (3 mL) subcutaneous pen .COMPLEX #30 day NS apixaban 5 mg tablet 2.5 mg PO BID #180 tab 05/06/20 10/12/20 Rx quetiapine 25 mg tablet See Rx Instructions .ROUTE 06/25/20 10/08/20 Rx .COMPLEX #90 tab insulin lispro 100 unit/mL 5 unit SUBCUT DAILY #15 ml 07/17/20 10/12/20 Rx subcutaneous pen potassium chloride 20 mEq See Rx Instructions .ROUTE 07/23/20 10/12/20 Rx tablet,extended release(part/cryst) .COMPLEX #90 tab finasteride 5 mg tablet 5 mg PO DAILY #90 tab 08/07/20 10/12/20 Rx tamsulosin 0.4 mg capsule 0.4 mg PO BID #180 cap 08/07/20 10/12/20 Rx pen needle, diabetic 31 gauge x See Rx Instructions .ROUTE 08/21/20 10/08/20 Rx 5/16 .COMPLEX #100 ea blood sugar diagnostic See Rx Instructions .ROUTE 09/17/20 10/13/20 Rx .COMPLEX #300 strip cyclobenzaprine 10 mg tablet See Rx Instructions .ROUTE 10/01/20 10/12/20 Rx .COMPLEX #90 tab fluoxetine 20 mg capsule See Rx Instructions .ROUTE 10/08/20 10/08/20 Rx .COMPLEX #90 cap polyethylene glycol 3350 17 gram See Rx Instructions .ROUTE 10/08/20 10/12/20 Rx oral powder packet .COMPLEX #30 ea triamcinolone acetonide 0.1 % See Rx Instructions .ROUTE 10/09/20 Rx topical cream .COMPLEX #30 g furosemide 20 mg PO DAILY 10/12/20 10/12/20 History furosemide 40 mg PO QAM 10/12/20 10/12/20 History hydrocodone-acetaminophen 1 tab PO BID 10/12/20 10/12/20 History simvastatin 40 mg PO BEDTIME 10/12/20 10/12/20 History Allergies Allergy/AdvReac Type Severity Reaction Status Date / Time triamcinolone Allergy Mild Hives Verified 10/12/20 16:07 Review of Systems Review of Systems ROS: Yes unobtainable due to mental status (Patient repeats no or when am I going to leave) and other Exam Vital Signs (past 8 hours): - 10/12/20 16:07 10/12/20 16:15 10/12/20 16:30 Temperature 98.1 F Pulse Rate 59 L 90 86 Respiratory Rate 18 23 23 Blood Pressure 128/67 Pulse Oximetry 92 91 92 10/12/20 16:32 10/12/20 16:49 10/12/20 17:00 Temperature Pulse Rate 85 84 83 Respiratory Rate 23 21 Blood Pressure 125/60 125/60 118/63 Pulse Oximetry 92 91 10/12/20 17:26 10/12/20 17:30 10/12/20 17:40 Temperature Pulse Rate 83 84 88 Respiratory Rate 18 20 31 H Blood Pressure 113/69 127/59 L 105/58 L Pulse Oximetry 94 96 10/12/20 17:50 10/12/20 18:00 10/12/20 18:10 Temperature Pulse Rate 87 81 85 Respiratory Rate 21 19 16 Blood Pressure 162/78 H 133/61 117/54 L Pulse Oximetry 95 95 94 Oxygen Delivery Method Nasal Cannula Oxygen Flow Rate 2 Narrative Exam Narrative: Gen: Alert to self only, obese and well nourished 70y.o. male, NAD HEENT: normocephalic, atraumatic, conjunctiva clear, sclera non-icteric, oral mucosa pink and moist Neck: supple, full ROM, no JVD, trachea is midline Resp: Lungs CTA, non-labored breathing CV: RRR, no murmur or rubs Abd: distended, non-tender, normoactive BTs Skin: no lesions or rashes, dry and intact Neuro: Awake and oriented to self only, aphasic, with severe short term memory impairement, speech garbled, though informed by is his baseline Extremities: moves all 4 extremities, is ambulatory, negative Elliott?s sign Psyche: normal mood and affect. Objective Labs Result Diagrams: 10/12/20 16:30 10/12/20 16:30 Labs: Laboratory Results - last 24 hr 10/12/20 10/12/20 10/12/20 16:30 16:30 16:30 WBC 10.9 RBC 4.59 Hgb 13.0 L Hct 39.6 L MCV 86.4 MCH 28.4 MCHC 32.9 RDW 15.4 H Plt Count 232 Neut % (Auto) 73.2 Lymph % (Auto) 16.5 L Crisp % (Auto) 7.5 Eos % (Auto) 2.1 Baso % (Auto) 0.7 Neut # (Auto) 8000 H Lymph # (Auto) 1800 Crisp # (Auto) 800 Eos # (Auto) 200 Baso # (Auto) 100 PT 11.9 INR 1.0 APTT 33 Sodium 133 L Potassium 4.5 Chloride 102 Carbon Dioxide 22 BUN 25 H Creatinine 1.11 Estimated GFR > 60.0 BUN/Creatinine Ratio 22.5 H Glucose 249 H Calcium 9.2 Total Bilirubin 0.7 AST 27 ALT 20 Alkaline Phosphatase 71 Total Creatine Kinase 124 CK-MB (CK-2) 1.23 CK-MB (CK-2) Rel Index 1.0 L Troponin I 0.059 H NT-Pro-B Natriuret Pep Total Protein 7.1 Albumin 4.0 Globulin 3.1 Albumin/Globulin Ratio 1.3 Lipase 180 Urine Color Urine Appearance Urine pH Ur Specific [place] Urine Protein Urine Glucose (UA) Urine Ketones Urine Occult Blood Urine Nitrate Urine Bilirubin Urine Urobilinogen Ur Leukocyte Esterase Urine RBC Urine WBC Urine Bacteria Ur Culture Indicated? SARS-CoV-2 (PCR) 10/12/20 10/12/20 10/12/20 16:30 16:45 18:00 WBC RBC Hgb Hct MCV MCH MCHC RDW Plt Count Neut % (Auto) Lymph % (Auto) Crisp % (Auto) Eos % (Auto) Baso % (Auto) Neut # (Auto) Lymph # (Auto) Crisp # (Auto) Eos # (Auto) Baso # (Auto) PT INR APTT Sodium Potassium Chloride Carbon Dioxide BUN Creatinine Estimated GFR BUN/Creatinine Ratio Glucose Calcium Total Bilirubin AST ALT Alkaline Phosphatase Total Creatine Kinase CK-MB (CK-2) CK-MB (CK-2) Rel Index Troponin I NT-Pro-B Natriuret Pep 746 H Total Protein Albumin Globulin Albumin/Globulin Ratio Lipase Urine Color Yellow Urine Appearance Clear Urine pH 6.0 Ur Specific [place] 1.010 Urine Protein Negative Urine Glucose (UA) Negative Urine Ketones Negative Urine Occult Blood 3+ H Urine Nitrate Negative Urine Bilirubin Negative Urine Urobilinogen 0.2 Ur Leukocyte Esterase Negative Urine RBC 10-30/hpf H Urine WBC None seen Urine Bacteria None seen Ur Culture Indicated? Cult not indicated SARS-CoV-2 (PCR) Negative 10/12/20 18:35 WBC RBC Hgb Hct MCV MCH MCHC RDW Plt Count Neut % (Auto) Lymph % (Auto) Crisp % (Auto) Eos % (Auto) Baso % (Auto) Neut # (Auto) Lymph # (Auto) Crisp # (Auto) Eos # (Auto) Baso # (Auto) PT INR APTT Sodium Potassium Chloride Carbon Dioxide BUN Creatinine Estimated GFR BUN/Creatinine Ratio Glucose Calcium Total Bilirubin AST ALT Alkaline Phosphatase Total Creatine Kinase CK-MB (CK-2) CK-MB (CK-2) Rel Index Troponin I 0.073 H NT-Pro-B Natriuret Pep Total Protein Albumin Globulin Albumin/Globulin Ratio Lipase Urine Color Urine Appearance Urine pH Ur Specific [place] Urine Protein Urine Glucose (UA) Urine Ketones Urine Occult Blood Urine Nitrate Urine Bilirubin Urine Urobilinogen Ur Leukocyte Esterase Urine RBC Urine WBC Urine Bacteria Ur Culture Indicated? SARS-CoV-2 (PCR) Assessment & Plan Assessment & Plan narrative: Jackie Hurley is a 70 y.o. male with multiple cardiac and neurologic risk factors who will be admitted to the inpatient unit for further evaluation and workup of chest pain. His troponins were mildly elevated and concerning for ACS. Chest pain r/o ACS, actute and present on admission -First 2 trops were indeterminate. 3rd troponin was 0.520. Discussed case w/on- call finance broker, patient is not indicating chest pain. They recommended repeat EKG, no changes. 5 am trop pending. -Complete Echo in am. Last one done was in 2018 indicated a reduced EF of 40% -Pharmacological stress test -Start ASA 81 mg -Received nitro X 1 in the ED -EKG shows PVCs and indeterminate ischemic changes HFrEF, appears to be improving from 10 days ago, present on admission -ProBNP is 746, on 10/01 it was 821 -Last echo, the patient had an EF of 40% -CT concerning for remote infarct of the left ventricle with thinning of the apex and aneurysmal dilation -Complete echo in the am. Essential hypertension -Continue lisinopril 2.5 mg po daily -Pt. currently not on a beta cole and is normotensive, borderline hypotensive. To be addressed after the stress test. Diabetes type 2 with an A1c of 7.4 -Aic is improved since June 2020 -Continue home doses of glargine 40 units in the am, 80 units in the pm, humalog 5 units with lunch and a medium dose correctional scale insulin. -Carb controlled diet Past history of a hemmorhagic CVA -Patient is aphasic at baseline HLD -Lipid panel, pending -Continue home dose of simvastatin 40 mg po at bedtime Risk stratification -Fasting lipid panel pending -A1c 7.4% VTE prophylaxis: Wells risk score: 1.5 Continue home dose of apixaban 2.5 mg po bid Consults: Recommend Cardiology consult in the am, or transfer if he has a large rise in his troponin. Patient is admitted under inpatient status with expected length of stay greater than 2 midnights due to severity of presenting symptoms, risk of adverse event, and complexity of treatment plan. FEN: Saline lock Carb controlled diet, BMP and magnesium in the am. Dispo: Unknown at this time Code Status: Full code as discussed with his , Esperanza, his surrogate COVID-19 COVID-19 status: Negative Result date/Date tested (Pos, Neg/Pending): 10/12/20 Scores Wells' Criteria for PE Clinical signs and symptoms of DVT: No PE is #1 Dx or equally likely: No Heart rate > 100: No Immobilization at least 3 days or surg in previous 4 weeks: Yes History of PE or DVT: No Hemoptysis: No Malignancy w/Treatment within 6 months or palliative: No Wells' PE Score total: 1.5 Quality VTE Deep Vein Thrombosis/Pulmonary Embolism Present on Admission: No MIPS - Admit I confirm the patient?s Advance Care Plan is present, Code status is documented, Surrogate decision maker is in patient?s record [If Yes, STOP here]: Yes MIPS - DC The patient has current or prior documentation of left ventricular ejection fraction (LVEF) less than 40%, or moderate or severely depressed left ventricular systolic function.: Yes A. The patient was prescribed or already taking an Angiotensin-Converting Enzyme (RENETTA) Inhibitor, or Angiotensin Receptor Cole (ARB).: Yes B. The patient was prescribed or already taking a beta-cole. [If Yes to Both A & B, STOP here]: No
[2020-10-12 21:18] LABS: Magnesium 2.2 mg/dL (1.6-2.3)
[2020-10-12 21:31] LABS: Hemoglobin A1C% w Est Avg Glu 7.4 % (4.0-6.0)
[2020-10-12] MEDS: TAMSULOSIN 0.4 MG CAPSULE PO (22:08)
[2020-10-12] MEDS: SIMVASTATIN 40 MG TABLET PO (22:08)
[2020-10-12] MEDS: HYDROCODONE/ACET 5/325 TABLET 1 TAB PO (22:09)
[2020-10-12] MEDS: APIXABAN 5 MG TABLET 2.5 MG PO (22:09)
[2020-10-12] MEDS: QUETIAPINE 25 MG TABLET PO (22:09)
[2020-10-12] MEDS: SENNOSIDES 8.6 MG TABLET 25.8 MG PO (22:11)
[2020-10-12] MEDS: INSULIN GLARGINE 100 UNIT/ML 3ML PEN 80 UNIT SUBCUT (22:29)
[2020-10-12 22:59] LABS: Procalcitonin 0.05 ng/mL (<0.5)
--- NOTE | 2020-10-12 23:23 | PC.ADMIT ---
[email or web address] Admission Note: Patient arrived to unit from ED via stretcher at 2056. Patient on 2 L nasal cannula, in no visible distress, patient was able to stand and pivot into bed. Vital signs within normal limits. Patients Esperanza at bedside and answering admission questions because patient has aphasia from previous CVA and has a hard time communicating. Two RN skin check performed and patient has redness located in groin and has stage 2 on left buttocks. Patient was able to get up to commode with staff to urinate, does not like to use the urinal. Patient can follow commands. Patients did not have a list of medications on her but reviewed the medications she knew with this RN. Patient given call hicks and TV turned on for him. Bed alarm was also placed on patient, bed in lowest position, and curtain kept open so this RN could view patient from nursing station. The patient,Jackie Hurley Jr,70 y/o, was given written information regarding hospital policies, unit procedures and contact persons. Patient's smoking status: Former smoker. Vital Signs - 8 hr 10/12/20 16:07 10/12/20 16:15 10/12/20 16:30 Temperature 98.1 F Pulse Rate 59 L 90 86 Respiratory Rate 18 23 23 Blood Pressure 128/67 Pulse Oximetry 92 91 92 10/12/20 16:32 10/12/20 16:49 10/12/20 17:00 Temperature Pulse Rate 85 84 83 Respiratory Rate 23 21 Blood Pressure 125/60 125/60 118/63 Pulse Oximetry 92 91 10/12/20 17:26 10/12/20 17:30 10/12/20 17:40 Temperature Pulse Rate 83 84 88 Respiratory Rate 18 20 31 H Blood Pressure 113/69 127/59 L 105/58 L Pulse Oximetry 94 96 10/12/20 17:50 10/12/20 18:00 10/12/20 18:10 Temperature Pulse Rate 87 81 85 Respiratory Rate 21 19 16 Blood Pressure 162/78 H 133/61 117/54 L Pulse Oximetry 95 95 94 10/12/20 18:20 10/12/20 18:30 10/12/20 19:00 Temperature Pulse Rate 85 80 81 Respiratory Rate 22 24 18 Blood Pressure 122/66 123/60 Pulse Oximetry 93 94 96 10/12/20 19:27 10/12/20 19:30 10/12/20 19:40 Temperature Pulse Rate 87 88 79 Respiratory Rate 10 L 19 17 Blood Pressure 114/54 L 130/61 128/60 Pulse Oximetry 94 95 95 10/12/20 19:50 10/12/20 20:52 10/12/20 20:55 Temperature 97.7 F Pulse Rate 78 80 Respiratory Rate 22 24 Blood Pressure 119/59 L 104/77 Pulse Oximetry 94 95 94
[2020-10-13 00:21] VITALS: BP 116/22; PULSE 72; RESP 18; TEMP 36.3; O2SAT 97
[2020-10-13 00:46] LABS: Thyroid Stimulating Hormone 1.78 uIU/mL (0.47-4.68)
[2020-10-13 00:52] VITALS: O2SAT 97
[2020-10-13 04:00] VITALS: O2SAT 96
[2020-10-13 05:15] VITALS: BP 113/76; PULSE 74; RESP 19; TEMP 36.6; O2SAT 97
[2020-10-13 05:34] LABS: Add Manual Diff / Slide Review NO; Basophils Absolute Auto 100 /uL (0-100); Basophils Percent Auto 0.6 % (0-2); Eosinophils Absolute Auto 300 /uL (0-450); Eosinophils Percent Auto 2.9 % (2-4); Hematocrit 40.2 % (41-53); Hemoglobin 13.3 g/dL (13.5-17.5); Lymphocytes Absolute Auto 2600 /uL (1100-4500); Lymphocytes Percent Auto 24.7 % (25-40); Mean Corpuscular Hemoglobin 28.8 PG (26-34); Mean Corpuscular Volume 87.3 fL (80-100); Monocytes Absolute Auto 1000 /uL (0-900); Neutrophils Absolute Auto 6700 /uL (1500-7000); Neutrophils Percent Auto 62.8 % (50-75); Platelet Count 234 X10^3/uL (150-400); Red Cell Distribution Width 15.4 % (11.6-14.8); White Blood Cell Count 10.6 X10^3/uL (4.5-11.0)
[2020-10-13 05:41] LABS: BUN Creatinine Ratio 21.9 (6-22); Blood Urea Nitrogen 23 mg/dL (9-20); Calcium 9.5 mg/dL (8.4-10.2); Carbon Dioxide 26 mmol/L (22-32); Chloride 102 mmol/L (98-107); Cholesterol 141 mg/dL (140-199); Estimated Glomerular Filt Rate > 60.0 mL/min (>60); Glucose 125 mg/dL (80-110); HDL Cholesterol 42 mg/dL (40-60); HEMOLYSIS < 15 (0-50); LDL Cholesterol Calculated 84 mg/dL (<100); Potassium 3.7 mmol/L (3.4-5.1); Sodium 137 mmol/L (137-145); Triglycerides 74 mg/dL (35-150)
[2020-10-13 05:55] LABS: Troponin I 0.568 ng/mL (0.01-0.034)
--- NOTE | 2020-10-13 06:16 | PC.NURSE ---
Notified Tom ATKINS of increased trop. Pt resting in bed comfortably showing no signs of chest pain or shortness of breath. No changes in EKG.
--- NOTE | 2020-10-13 06:27 | P.DS_ITS ---
History of Present Illness History of Present Illness Chief complaint: trouble breathing, chest pain Narrative: Lupillo Hurley is a 70-year-old male with approximate 4 year history of having a hemorrhagic CVA treated at [facility], [place], atrial fibrillation anticoagulated on apixaban, HFrEF with a reduced ejection fraction, and diabetes presented to the emergency department with a complaint of chest pain. He has significant repeat residual deficits from the CVA and his Esperanza provides the history. She states that the pain started at 4:00 p.m. today and stated that he pointed to his chest and abdomen indicating that it hurt all over. He then points to the left side of his chest and she states that he was breathing heavily and decided to call paramedics. He had been seen here about 10 days ago with similar presentation of without chest pain was having difficulty breathing. The states that he did not complain of any nausea or vomiting, abdominal pain, dysuria, she states that he has chronic constipation and takes laxatives for such, she spends real time operator taking care of him. He presented and was seen and evaluated at [place] [facility] on 10/01/2020 his and found to have congestive heart failure. His medication was adjusted he was seen by his PCP after the ED visit and had his Lasix 40 mg in the morning and 40 mg at 3:00 p.m.. Chest x-ray ordered by the ED report is suggestive of bilateral basilar pneumonia, CT of the chest and abdomen indicates: No evidence of dissection, intramural hematoma, high-grade stenosis, or other vascular abnormality of the intrathoracic or abdominal aorta and proximal branch vessels. 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 There is mild cardiomegaly and multi-vessel marked coronary vascular calcifications. Findings suggestive of CHF including small bilateral pleural effusions as well as interstitial and alveolar edema. Nonspecific mediastinal and hilar adenopathy. Nonobstructing right renal nephrolith. He received a dose of nitroglycerin which relieved his pain. Patient is afebrile blood pressure 104/77 heart rate 80, respiratory rate 24, oxygen saturation of 94% on 2 L, he weighs 125 kg with a BMI of 38.4. He does not have a white count however has a mildly elevated neutrophil count at 8000, xray suggestive of a bilateral pneumonia. Troponins were elevated 2 hours apart at 0.059 and 0.073 respectively, glucose is 249 and his hemoglobin A1c was 7.4,proBNP was 746, UA was negative for UTI, and COVID-19 PCR was negative. Discharge Providers Provider Date of admission: 10/12/20 20:15 Discharge Date: 10/13/20 Primary care physician: Edil Lyons DO Consults: None Discharge provider: MILLY Mitchell Summary Hospital Course Discharge Diagnosis: Non-Stemi Hospital Course: Jackie Hurley was admitted on the evening of October 12 for chest pain rule out. He has had a history of an intracranial bleed and as a result has expressive aphasia. His was in the room and providing the history and earlier in the day had had significant pain on the left side of his chest. He was admitted for further evaluation of his chest pain and scheduled to undergo nuclear stress testing and and echocardiogram. He was to have his troponins trended and initially they were 0.059, 2 hours later it increased to 0.073, and a 6 hour troponin was midnight it was 0.520, and at 5:00 a.m. today it is 0.568. The case was discussed with the on-call director private music therapy agency at [facility] and it was recommended to trend his t roponins and have him undergo an echocardiogram as well as nuclear stress testing. Due to his continued rise in his troponin it was determined that the patient should be transferred for further advance management and possible heart catheterization. Status at Discharge Cognitive/behavioral status at discharge: at baseline, confused Functional status at discharge: uses cane/walker Overall status at discharge: patient is not back to baseline Time Spent with Patient Time spent: Greater than 30 minutes Exam Vital Signs (past 8 hours): - 10/13/20 00:21 10/13/20 00:52 10/13/20 04:00 Temperature 97.3 F L Pulse Rate 72 Respiratory Rate 18 Blood Pressure 116/22 L Pulse Oximetry 97 97 96 10/13/20 05:15 Temperature 97.8 F Pulse Rate 74 Respiratory Rate 19 Blood Pressure 113/76 Pulse Oximetry 97 Oxygen Delivery Method Nasal Cannula Oxygen Flow Rate 2 Narrative Exam Narrative: Vitals reviewed and are stable, patient in no distress, and currently not complaining of pain. See History and Physical for detailed exam. Objective Labs Result Diagrams: 10/13/20 04:51 10/13/20 04:51 Labs: Laboratory Results - last 24 hr 10/12/20 10/12/20 10/12/20 16:30 16:30 16:30 WBC 10.9 RBC 4.59 Hgb 13.0 L Hct 39.6 L MCV 86.4 MCH 28.4 MCHC 32.9 RDW 15.4 H Plt Count 232 Neut % (Auto) 73.2 Lymph % (Auto) 16.5 L [place] % (Auto) 7.5 Eos % (Auto) 2.1 Baso % (Auto) 0.7 Neut # (Auto) 8000 H Lymph # (Auto) 1800 [place] # (Auto) 800 Eos # (Auto) 200 Baso # (Auto) 100 PT 11.9 INR 1.0 APTT 33 Sodium 133 L Potassium 4.5 Chloride 102 Carbon Dioxide 22 BUN 25 H Creatinine 1.11 Estimated GFR > 60.0 BUN/Creatinine Ratio 22.5 H Glucose 249 H Hemoglobin A1c Calcium 9.2 Magnesium Total Bilirubin 0.7 AST 27 ALT 20 Alkaline Phosphatase 71 Total Creatine Kinase 124 CK-MB (CK-2) 1.23 CK-MB (CK-2) Rel Index 1.0 L Troponin I 0.059 H NT-Pro-B Natriuret Pep Total Protein 7.1 Albumin 4.0 Globulin 3.1 Albumin/Globulin Ratio 1.3 Triglycerides Cholesterol LDL Cholesterol, Calc HDL Cholesterol Lipase 180 Procalcitonin TSH Urine Color Urine Appearance Urine pH Ur Specific Wade Urine Protein Urine Glucose (UA) Urine Ketones Urine Occult Blood Urine Nitrate Urine Bilirubin Urine Urobilinogen Ur Leukocyte Esterase Urine RBC Urine WBC Urine Bacteria Ur Culture Indicated? SARS-CoV-2 (PCR) 10/12/20 10/12/20 10/12/20 16:30 16:30 16:45 WBC RBC Hgb Hct MCV MCH MCHC RDW Plt Count Neut % (Auto) Lymph % (Auto) [place] % (Auto) Eos % (Auto) Baso % (Auto) Neut # (Auto) Lymph # (Auto) [place] # (Auto) Eos # (Auto) Baso # (Auto) PT INR APTT Sodium Potassium Chloride Carbon Dioxide BUN Creatinine Estimated GFR BUN/Creatinine Ratio Glucose Hemoglobin A1c 7.4 H Calcium Magnesium Total Bilirubin AST ALT Alkaline Phosphatase Total Creatine Kinase CK-MB (CK-2) CK-MB (CK-2) Rel Index Troponin I NT-Pro-B Natriuret Pep 746 H Total Protein Albumin Globulin Albumin/Globulin Ratio Triglycerides Cholesterol LDL Cholesterol, Calc HDL Cholesterol Lipase Procalcitonin TSH Urine Color Urine Appearance Urine pH Ur Specific Wade Urine Protein Urine Glucose (UA) Urine Ketones Urine Occult Blood Urine Nitrate Urine Bilirubin Urine Urobilinogen Ur Leukocyte Esterase Urine RBC Urine WBC Urine Bacteria Ur Culture Indicated? SARS-CoV-2 (PCR) Negative 10/12/20 10/12/20 10/12/20 18:00 18:35 18:35 WBC RBC Hgb Hct MCV MCH MCHC RDW Plt Count Neut % (Auto) Lymph % (Auto) [place] % (Auto) Eos % (Auto) Baso % (Auto) Neut # (Auto) Lymph # (Auto) [place] # (Auto) Eos # (Auto) Baso # (Auto) PT INR APTT Sodium Potassium Chloride Carbon Dioxide BUN Creatinine Estimated GFR BUN/Creatinine Ratio Glucose Hemoglobin A1c Calcium Magnesium 2.2 Total Bilirubin AST ALT Alkaline Phosphatase Total Creatine Kinase CK-MB (CK-2) CK-MB (CK-2) Rel Index Troponin I 0.073 H NT-Pro-B Natriuret Pep Total Protein Albumin Globulin Albumin/Globulin Ratio Triglycerides Cholesterol LDL Cholesterol, Calc HDL Cholesterol Lipase Procalcitonin TSH Urine Color Yellow Urine Appearance Clear Urine pH 6.0 Ur Specific Wade 1.010 Urine Protein Negative Urine Glucose (UA) Negative Urine Ketones Negative Urine Occult Blood 3+ H Urine Nitrate Negative Urine Bilirubin Negative Urine Urobilinogen 0.2 Ur Leukocyte Esterase Negative Urine RBC 10-30/hpf H Urine WBC None seen Urine Bacteria None seen Ur Culture Indicated? Cult not indicated SARS-CoV-2 (PCR) 10/12/20 10/12/20 10/13/20 18:35 18:35 00:11 WBC RBC Hgb Hct MCV MCH MCHC RDW Plt Count Neut % (Auto) Lymph % (Auto) [place] % (Auto) Eos % (Auto) Baso % (Auto) Neut # (Auto) Lymph # (Auto) [place] # (Auto) Eos # (Auto) Baso # (Auto) PT INR APTT Sodium Potassium Chloride Carbon Dioxide BUN Creatinine Estimated GFR BUN/Creatinine Ratio Glucose Hemoglobin A1c Calcium Magnesium Total Bilirubin AST ALT Alkaline Phosphatase Total Creatine Kinase CK-MB (CK-2) CK-MB (CK-2) Rel Index Troponin I 0.520 H* NT-Pro-B Natriuret Pep Total Protein Albumin Globulin Albumin/Globulin Ratio Triglycerides Cholesterol LDL Cholesterol, Calc HDL Cholesterol Lipase Procalcitonin 0.05 TSH 1.78 Urine Color Urine Appearance Urine pH Ur Specific Wade Urine Protein Urine Glucose (UA) Urine Ketones Urine Occult Blood Urine Nitrate Urine Bilirubin Urine Urobilinogen Ur Leukocyte Esterase Urine RBC Urine WBC Urine Bacteria Ur Culture Indicated? SARS-CoV-2 (PCR) 10/13/20 10/13/20 10/13/20 04:51 04:51 04:51 WBC 10.6 RBC 4.60 Hgb 13.3 L Hct 40.2 L MCV 87.3 MCH 28.8 MCHC 33.0 RDW 15.4 H Plt Count 234 Neut % (Auto) 62.8 Lymph % (Auto) 24.7 L [place] % (Auto) 9.0 Eos % (Auto) 2.9 Baso % (Auto) 0.6 Neut # (Auto) 6700 Lymph # (Auto) 2600 [place] # (Auto) 1000 H Eos # (Auto) 300 Baso # (Auto) 100 PT INR APTT Sodium 137 Potassium 3.7 Chloride 102 Carbon Dioxide 26 BUN 23 H Creatinine 1.05 Estimated GFR > 60.0 BUN/Creatinine Ratio 21.9 Glucose 125 H D Hemoglobin A1c Calcium 9.5 Magnesium Total Bilirubin AST ALT Alkaline Phosphatase Total Creatine Kinase CK-MB (CK-2) CK-MB (CK-2) Rel Index Troponin I 0.568 H* NT-Pro-B Natriuret Pep Total Protein Albumin Globulin Albumin/Globulin Ratio Triglycerides 74 Cholesterol 141 LDL Cholesterol, Calc 84 HDL Cholesterol 42 Lipase Procalcitonin TSH Urine Color Urine Appearance Urine pH Ur Specific Wade Urine Protein Urine Glucose (UA) Urine Ketones Urine Occult Blood Urine Nitrate Urine Bilirubin Urine Urobilinogen Ur Leukocyte Esterase Urine RBC Urine WBC Urine Bacteria Ur Culture Indicated? SARS-CoV-2 (PCR) [facility] Medical History Atrial fibrillation (02/21/15) Benign prostatic hyperplasia BPH (benign prostatic hyperplasia) Cardiomyopathy (02/21/15) Cataracts, bilateral (07/26/17) CHF (congestive heart failure) Chronic neck pain Coronary artery disease Diabetes Hematuria (~2016) History of CVA (cerebrovascular accident) (07/12/16) Hyperlipidemia Hypertension Lower extremity edema Peripheral vascular disease PVD (peripheral vascular disease) Renal failure Status post myocardial infarction (1994) Surgical History History of cranioplasty (10/30/16) History of surgery on arm History of vasectomy S/P TURP (10/19/13) Status post craniectomy (07/12/16) Family History Mother Age: 90 Dementia Father Cancer Social History household members: spouse Smoking Status: Former smoker second hand exposure: No alcohol intake: never substance use type: does not use Discharge Assessment & Plan Assessment and Plan Assessment: Chest pain r/o ACS, actute and present on admission -First 2 trops were indeterminate. 3rd troponin was 0.520. Discussed case w/on- call director private music therapy agency, patient is not indicating chest pain. They recommended repeat EKG, no changes. 5 am trop pending. -Complete Echo in am. Last one done was in 2017 indicated a reduced EF of 40% -Pharmacological stress test -Start ASA 81 mg -Received nitro X 1 in the ED -EKG shows PVCs and indeterminate ischemic changes HFrEF, appears to be improving from 10 days ago, present on admission -ProBNP is 746, on 10/01 it was 821 -Last echo, the patient had an EF of 40% -CT concerning for remote infarct of the left ventricle with thinning of the apex and aneurysmal dilation -Complete echo in the am. Essential hypertension -Continue lisinopril 2.5 mg po daily -Pt. currently not on a beta andry and is normotensive, borderline hypotensive. To be addressed after the stress test. Diabetes type 2 with an A1c of 7.4 -Aic is improved since June 2020 -Continue home doses of glargine 40 units in the am, 80 units in the pm, humalog 5 units with lunch and a medium dose correctional scale insulin. -Carb controlled diet Past history of a hemmorhagic CVA -Patient is aphasic at baseline HLD -Lipid panel, pending -Continue home dose of simvastatin 40 mg po at bedtime Risk stratification -Fasting lipid panel pending -A1c 7.4% VTE prophylaxis: Wells risk score: 1.5 Continue home dose of apixaban 2.5 mg po bid Consults: Recommend Cardiology consult in the am, or transfer if he has a large rise in his troponin. Patient is admitted under inpatient status with expected length of stay greater than 2 midnights due to severity of presenting symptoms, risk of adverse event, and complexity of treatment plan. FEN: Saline lock Carb controlled diet, BMP and magnesium in the am. Dispo: Unknown at this time Code Status: Full code as discussed with his , Esperanza, his surrogate Plan of Treatment: Due to the continued and consistent rise of his troponin the patient was deemed to be undergoing a likely slow and silent non STEMI. Patient's case was discussed with Dr. Tavares at [facility] who by this time agreed that the patient should be transferred. However there are currently no beds and efforts are being made now to transfer the patient to [facility]. Discharge Plan Discharge Plan Disposition: [facility] Discharge orders & Medications Follow up/Referrals: Edil Lyons DO [Primary Care Provider] - Discharge Data Primary Care Provider: Edil Lyons Attending Provider: Shanon Santos VTE Deep Vein Thrombosis/Pulmonary Embolism Present on Admission: No
--- NOTE | 2020-10-13 07:57 | PC.NURSE ---
0750-Update to about transfer to [place], room number provided.
[2020-10-13 08:00] VITALS: O2SAT 93
--- NOTE | 2020-10-13 08:19 | PC.NURSE ---
Addendum entered by Darin Galaviz R.N. 10/13/20 09:00: Report given to GONZALO Donahue via phone. Addendum entered by Darin Galaviz R.N. 10/13/20 08:52: Pt left in no apparent distress at 0852. Addendum entered by Darin Galaviz R.N. 10/13/20 08:48: [facility] here. Report given to RN. Pt belongings gathered and given to transport team. Pt transferred from bed to stretcher by transport team. Original Note: Called to [facility] to give RN report. Was told GONZALO Donahue would be returning my phone call to receive report. Left call back number and message that pt will be picked up by ambulance at 0830.
--- NOTE | 2020-10-13 08:53 | CM.DANOTE ---
Discharge Planning/Care Management DCP: Assessment note: Case received, EMR reviewed and note that pt has just been transferred to [facility] for higher level of specialty care. Admitted last night to care of hospitalist team. Payer: Medicare and Medicaid Advanced directive, confirm from FAMILY Start: 10/12/20 21:45 Freq: Q24H Status: Active Protocol: Document 10/12/20 21:45 SF (Rec: 10/12/20 21:57 SF [id number]) Advance Directive, confirm on record Time 08:55 Person contacted Esperanza Copy received No Advanced directive available on record No
== END 2020-10-13 08:52 | disposition short-term general hospital (02) | DRG 280 ==
LOC: ED 20:13 → ICU 10-13 06:38 → AC 10-14 07:06 → ICU 10-14 07:06
PROVIDERS: Emergency Medicine; Admitting Provider Nurse Practitioner Family; Emergency Provider Emergency Medicine; PCP Family Medicine; Referring Provider Emergency Medicine; Visit Provider Nurse Practitioner Family
DX: I21.4 Non-ST elevation (NSTEMI) myocardial infarction (principal); I50.21 Acute systolic (congestive) heart failure; I12.9 Hypertensive chronic kidney disease with stage 1 through stage 4 chronic kidney disease, or unspecified chronic kidney disease; E11.9 Type 2 diabetes mellitus without complications; Z79.4 Long term (current) use of insulin; I69.121 Dysphasia following nontraumatic intracerebral hemorrhage; E78.5 Hyperlipidemia, unspecified; Z20.822 Contact with and (suspected) exposure to COVID-19; I48.91 Unspecified atrial fibrillation; Z79.01 Long term (current) use of anticoagulants; N40.0 Benign prostatic hyperplasia without lower urinary tract symptoms; Z87.891 Personal history of nicotine dependence; I49.3 Ventricular premature depolarization
CPT/HCPCS: 36415; 71045; 71275; 74174; 80048; 80053; 80061; 81001; 82550; 82553; 82962; 83036; 83690; 83735; 83880; 84145; 84443; 84484; 85025; 85610; 85730; 87635; 87797; 93005; 93010; 96374; 99285; C9803; G0378; A9270; J1940; Q9967

== ENCOUNTER → 2020-11-11 11:40 | Outpatient (CLI) | payer MEDICARE, MEDICAID, SELFPAY ==
[2020-10-12 20:25] VITALS: BMI 38.4
[2020-11-11 12:50] LABS: BUN Creatinine Ratio 19.2 (6-22); Blood Urea Nitrogen 24 mg/dL (9-20); Calcium 9.7 mg/dL (8.4-10.2); Carbon Dioxide 27 mmol/L (22-32); Chloride 101 mmol/L (98-107); Estimated Glomerular Filt Rate 56.8 mL/min (>60); Glucose 198 mg/dL (80-110); HEMOLYSIS < 15 (0-50); Potassium 4.8 mmol/L (3.4-5.1); Sodium 137 mmol/L (137-145)
== END ==
PROVIDERS: PCP Family Medicine; Referring Provider Nurse Practitioner; Visit Provider Nurse Practitioner
DX: I50.22 Chronic systolic (congestive) heart failure (principal); I25.5 Ischemic cardiomyopathy; I42.8 Other cardiomyopathies
CPT/HCPCS: 36415; 80048

== ENCOUNTER → 2020-12-09 11:31 | Outpatient (CLI) | payer MEDICARE, MEDICAID, SELFPAY ==
[2020-10-12 20:25] VITALS: BMI 38.4
[2020-12-09 12:17] LABS: BUN Creatinine Ratio 23.1 (6-22); Blood Urea Nitrogen 30 mg/dL (9-20); Calcium 9.5 mg/dL (8.4-10.2); Carbon Dioxide 24 mmol/L (22-32); Chloride 102 mmol/L (98-107); Estimated Glomerular Filt Rate 54.3 mL/min (>60); Glucose 265 mg/dL (80-110); HEMOLYSIS < 15 (0-50); Potassium 4.6 mmol/L (3.4-5.1); Sodium 138 mmol/L (137-145)
== END ==
PROVIDERS: PCP Family Medicine; Referring Provider Internal Medicine; Visit Provider Internal Medicine
DX: I25.5 Ischemic cardiomyopathy (principal)
CPT/HCPCS: 36415; 80048

== ENCOUNTER → 2021-01-13 11:41 | Outpatient (CLI) | payer MEDICARE, MEDICAID, SELFPAY ==
[2020-10-12 20:25] VITALS: BMI 38.4
--- NOTE | 2021-01-13 11:43 | DI.CT.S_ITS ---
PROCEDURE: CT KIDNEY URETER BLADDER (KUB) INDICATIONS: Gross hematuria TECHNIQUE: Axial sections were acquired from the lung bases to the pubic symphysis. Coronal and sagittal reformats were performed. For radiation dose reduction, the following was used: automated exposure control, adjustment of mA and/or kV according to patient size. COMPARISON:[facility], CT, CT ANGIO CHEST ABDOMEN PELVIS, 10/12/2020, 16:58. FINDINGS: Image quality: Excellent. Lung bases: Trace residual left pleural effusion. Heart: Atherosclerotic calcifications of the coronary arteries are noted.. URINARY: Right Kidney: There is a nonobstructing 6 mm inferior right renal stone. No perinephric stranding. Right Ureter: No ureteral stone. No periureteral stranding. No hydroureter. Left Kidney: No stones or hydronephrosis. Left Ureter: No hydroureter. Bladder: Normal wall thickness. No urinary bladder stones. Redemonstration of mass effect involving the inferior margin of the urinary bladder secondary to prominent AP diameter of the prostate gland. ABDOMEN: Liver: Unremarkable. Gallbladder: Unremarkable. Biliary ducts: Unremarkable. Pancreas: Unremarkable. No peripancreatic inflammation. Spleen: Unremarkable. Adrenal Glands: Unremarkable. Stomach and Bowel: Stomach, small bowel loops, and colon are unremarkable. Peritoneum: No abnormal intraperitoneal fluid. No free air. Ventral Wall: No hernia. Abdominal Nodes: No enlarged retroperitoneal or mesenteric lymph nodes. Vessels: Aorta and inferior vena cava are normal in size. Scattered atherosclerotic calcifications of the abdominal aorta and iliac vessels without aneurysmal dilatation. In the PELVIS: Pelvic Organs: Stable appearance of prominent prostate gland predominantly in the AP dimension/craniocaudal with associated mass effect upon the inferior wall of the urinary bladder. Pelvic Nodes: Unremarkable. Miscellaneous: Small right greater than left bilateral fat containing inguinal hernias are seen. Bones: Unremarkable. No acute compression fractures. Multilevel spondylosis of the imaged spine. IMPRESSION: 1. Nonobstructing 6 mm inferior right renal stone. No hydronephrosis or perinephric stranding. 2. Stable prominent prostate gland with associated mass effect upon the inferior wall of the urinary bladder. Urinary bladder is otherwise normal in appearance. 3. Atherosclerotic vascular disease. Other chronic findings as above. Dictated by: Jose Stoddard M.D. on 01/13/2021 at 16:18 Approved by: Jose Stoddard M.D. on 01/13/2021 at 16:28
== END ==
PROVIDERS: PCP Family Medicine; Referring Provider Urology; Visit Provider Urology
DX: R31.0 Gross hematuria (principal); N20.0 Calculus of kidney; I25.10 Atherosclerotic heart disease of native coronary artery without angina pectoris; I70.0 Atherosclerosis of aorta
CPT/HCPCS: 74176

== ENCOUNTER → 2021-01-20 09:29 | Outpatient (CLI) | payer MEDICARE, MEDICAID, SELFPAY ==
[2020-10-12 20:25] VITALS: BMI 38.4
[2021-01-20 10:24] LABS: Add Manual Diff / Slide Review NO; Basophils Absolute Auto 100 /uL (0-100); Basophils Percent Auto 0.6 % (0-2); Eosinophils Absolute Auto 300 /uL (0-450); Eosinophils Percent Auto 3.5 % (2-4); Hematocrit 43.1 % (41-53); Hemoglobin 14.1 g/dL (13.5-17.5); Lymphocytes Absolute Auto 2300 /uL (1100-4500); Lymphocytes Percent Auto 23.9 % (25-40); Mean Corpuscular HGB Conc 32.8 % (30-36); Mean Corpuscular Hemoglobin 27.7 PG (26-34); Mean Corpuscular Volume 84.4 fL (80-100); Monocytes Absolute Auto 800 /uL (0-900); Monocytes Percent Auto 8.5 % (3-14); Neutrophils Absolute Auto 6100 /uL (1500-7000); Neutrophils Percent Auto 63.5 % (50-75); Platelet Count 230 X10^3/uL (150-400); Red Cell Distribution Width 15.4 % (11.6-14.8); White Blood Cell Count 9.6 X10^3/uL (4.5-11.0)
[2021-01-20 10:33] LABS: Hemoglobin A1C% w Est Avg Glu 8.5 % (4.0-6.0)
[2021-01-20 11:01] LABS: Alanine Aminotransferase 22 IU/L (<50); Albumin 4.1 g/dL (3.5-5.0); Albumin Globulin Ratio 1.3 (1.0-2.8); Alkaline Phosphatase 58 U/L (38-126); Aspartate Aminotransferase 22 IU/L (17-59); Blood Urea Nitrogen 26 mg/dL (9-20); Calcium 9.7 mg/dL (8.4-10.2); Carbon Dioxide 27 mmol/L (22-32); Chloride 103 mmol/L (98-107); Cholesterol 147 mg/dL (140-199); Estimated Glomerular Filt Rate > 60.0 mL/min (>60); Globulin 3.1 g/dL (1.7-4.1); Glucose 146 mg/dL (80-110); HDL Cholesterol 46 mg/dL (40-60); HEMOLYSIS < 15 (0-50); LDL Cholesterol Calculated 81 mg/dL (<100); Potassium 4.2 mmol/L (3.4-5.1); Sodium 138 mmol/L (137-145); Total Protein 7.2 g/dL (6.3-8.2); Triglycerides 101 mg/dL (35-150)
== END ==
PROVIDERS: PCP Family Medicine; Referring Provider Family Medicine; Visit Provider Family Medicine
DX: E11.9 Type 2 diabetes mellitus without complications (principal); G89.29 Other chronic pain; M54.2 Cervicalgia
CPT/HCPCS: 36415; 80053; 80061; 83036; 85025

== ENCOUNTER → 2021-05-07 09:03 | Outpatient (CLI) | payer MEDICARE, MEDICAID, SELFPAY ==
[2020-10-12 20:25] VITALS: BMI 38.4
[2021-05-07 09:59] LABS: Hemoglobin A1C% w Est Avg Glu 7.9 % (4.0-6.0)
[2021-05-07 10:01] LABS: Add Manual Diff / Slide Review NO; Basophils Absolute Auto 100 /uL (0-100); Basophils Percent Auto 0.6 % (0-2); Eosinophils Absolute Auto 400 /uL (0-450); Hematocrit 41.2 % (41-53); Hemoglobin 13.7 g/dL (13.5-17.5); Lymphocytes Absolute Auto 2200 /uL (1100-4500); Lymphocytes Percent Auto 22.3 % (25-40); Mean Corpuscular HGB Conc 33.3 % (30-36); Mean Corpuscular Hemoglobin 28.4 PG (26-34); Mean Corpuscular Volume 85.3 fL (80-100); Monocytes Absolute Auto 900 /uL (0-900); Monocytes Percent Auto 9.2 % (3-14); Neutrophils Absolute Auto 6200 /uL (1500-7000); Neutrophils Percent Auto 63.9 % (50-75); Platelet Count 226 X10^3/uL (150-400); Red Blood Cell Count 4.83 X10^6/uL (4.5-5.9); Red Cell Distribution Width 14.7 % (11.6-14.8); White Blood Cell Count 9.8 X10^3/uL (4.5-11.0)
[2021-05-07 10:25] LABS: Alanine Aminotransferase 25 IU/L (<50); Albumin 4.1 g/dL (3.5-5.0); Albumin Globulin Ratio 1.4 (1.0-2.8); Alkaline Phosphatase 57 U/L (38-126); Aspartate Aminotransferase 24 IU/L (17-59); BUN Creatinine Ratio 24.8 (6-22); Bilirubin Total 0.7 mg/dL (0.2-1.3); Blood Urea Nitrogen 31 mg/dL (9-20); Calcium 9.6 mg/dL (8.4-10.2); Carbon Dioxide 27 mmol/L (22-32); Chloride 101 mmol/L (98-107); Cholesterol 148 mg/dL (140-199); Estimated Glomerular Filt Rate 56.8 mL/min (>60); Globulin 2.9 g/dL (1.7-4.1); Glucose 173 mg/dL (80-110); HDL Cholesterol 41 mg/dL (40-60); HEMOLYSIS < 15 (0-50); LDL Cholesterol Calculated 85 mg/dL (<100); Potassium 4.7 mmol/L (3.4-5.1); Sodium 138 mmol/L (137-145); Triglycerides 111 mg/dL (35-150)
== END ==
PROVIDERS: PCP Family Medicine; Referring Provider Family Medicine; Visit Provider Family Medicine
DX: E11.42 Type 2 diabetes mellitus with diabetic polyneuropathy (principal); I50.22 Chronic systolic (congestive) heart failure; Z79.4 Long term (current) use of insulin
CPT/HCPCS: 36415; 80053; 80061; 83036; 85025

== ENCOUNTER 2021-06-01 21:08 | Observation (INO) | payer MEDICARE, MEDICAID, SELFPAY ==
[2020-10-12 20:25] VITALS: BMI 38.4
[2021-06-01] VITALS (15 sets, daily range): BP systolic 79–129; BP diastolic 51–82; PULSE 60–112; RESP 17–23; TEMP 36.3; O2SAT 93–100; BMI 39.0
--- NOTE | 2021-06-01 21:09 | ED_ITS ---
HPI - Chest Pain General Chief Complaint: Chest Pain Stated Complaint: Chest pain/high blood pressure/a-fib Time Seen by Provider: 06/01/21 21:09 History of Present Illness HPI narrative: 70M former smoker with history of CHF, exertional dyspnea, atrial fibrillation (no longer anticoagulated), expressive aphasia from prior stroke, diabetes and cardiomyopathy presents with his in the chief complaint of a sudden onset of what sounds like chest pressure. The patient had been in his normal state of health and has had no change in medications or diet. There at home watching a football game few hours prior to their arrival when he mentioned this to his . He does not seem to be in any distress on his arrival and is able to non verbally communicate on some level. He was recently taken off his anticoagulation and denies any other medication change or missed doses. She st ates he is otherwise well and free of complaint. Related Data Home Medications Medication Instructions Recorded Confirmed Lancet: Device 1 st INJ QID 02/23/19 05/09/21 docusate calcium 240 mg capsule 240 mg PO QID 02/23/19 06/02/21 sennosides 8.6 mg tablet (senna) 25.8 mg PO Q12H 02/23/19 05/09/21 aspirin 81 mg tablet,delayed 81 mg PO DAILY 06/07/19 06/02/21 release (Adult Aspirin Regimen) nitroglycerin 0.4 mg sublingual 0.4 mg SUBLINGUAL Q5M PRN 10/22/20 06/02/21 tablet torsemide 20 mg tablet 30 mg PO DAILY tab 10/22/20 06/02/21 apixaban 2.5 mg tablet (Eliquis) See Rx Instructions .ROUTE 05/09/21 06/02/21 .COMPLEX tab sacubitril 24 mg-valsartan 26 mg 1 tab PO BID 05/09/21 05/09/21 tablet (Entresto) Previous Rx's Medication Instructions Recorded insulin regular human 100 unit/mL See Rx Instructions SUBCUT TIDAC 11/05/17 injection solution (Humulin R #10 ml Regular U-100 Insulin) Syringes: Ultra Fine Insulin #100 each 02/14/18 Syringe w/Needle Light pressure salma hose #1 ea 07/05/18 Donut Pillow #1 ea 07/06/18 zinc oxide 20 % topical ointment 1 applictn TOP BID PRN #56.7 gram 07/07/18 Medium to high pressure socks #1 ea 09/06/18 magnesium citrate 150 ml PO BID PRN #296 ml 02/23/19 ProAir HFA 90 mcg/actuation See Rx Instructions .ROUTE 10/16/19 aerosol inhaler (albuterol sulfate) .COMPLEX #8.5 gram NS mupirocin 2 % topical ointment 1 applic TOP TID #30 gram 02/24/20 quetiapine 25 mg tablet See Rx Instructions .ROUTE 06/25/20 .COMPLEX #90 tab insulin lispro 100 unit/mL 5 unit (0.05 mL) SUBCUT DAILY #15 07/17/20 subcutaneous pen (Humalog KwikPen ml (U-100) Insulin) triamcinolone acetonide 0.1 % See Rx Instructions .ROUTE 11/11/20 topical cream .COMPLEX #30 g blood sugar diagnostic (OneTouch See Rx Instructions .ROUTE 02/17/21 Verio test strips) .COMPLEX #300 strip pen needle, diabetic 31 gauge x See Rx Instructions .ROUTE 02/25/21 5/16 (BD Ultra-Fine Short Pen .COMPLEX #100 ea Needle) simvastatin 40 mg tablet See Rx Instructions .ROUTE 03/07/21 .COMPLEX #90 tab nystatin 100,000 unit/gram topical 1 applic TOPICAL TID 14 Days #150 g 03/29/21 cream fluoxetine 20 mg capsule See Rx Instructions .ROUTE 03/31/21 .COMPLEX #90 cap cyclobenzaprine 10 mg tablet See Rx Instructions .ROUTE 04/01/21 .COMPLEX #90 tab terbinafine HCl 1 % topical cream 1 applic TOPICAL BID #30 g 04/09/21 hydrocodone 5 mg-acetaminophen 325 1 tab PO Q6H #120 tab 04/14/21 mg tablet finasteride 5 mg tablet See Rx Instructions .ROUTE 05/01/21 .COMPLEX #90 tab metoprolol succinate 25 mg 25 mg PO DAILY #90 tab 05/01/21 tablet,extended release 24 hr tamsulosin 0.4 mg capsule See Rx Instructions .ROUTE 05/01/21 .COMPLEX #180 cap fluconazole 50 mg tablet 50 mg PO DAILY #7 tab 05/09/21 potassium chloride 10 mEq See Rx Instructions .ROUTE 05/09/21 capsule,extended release .COMPLEX #180 cap Lantus Solostar U-100 Insulin 100 See Rx Instructions .ROUTE 05/13/21 unit/mL (3 mL) subcutaneous pen .COMPLEX #30 ml NS (insulin glargine) mupirocin 2 % topical ointment 1 applic TOPICAL BID #15 g 05/14/21 polyethylene glycol 3350 17 gram See Rx Instructions .ROUTE 05/20/21 oral powder packet .COMPLEX #30 ea Allergies Allergy/AdvReac Type Severity Reaction Status Date / Time triamcinolone Allergy Mild Hives Verified 05/09/21 12:08 Review of Systems Review of Systems ROS Unobtainable: Unobtainable due to mental status/LOC Patient History Medical History Acute CHF Atrial fibrillation (02/21/15) Benign prostatic hyperplasia BPH (benign prostatic hyperplasia) Cardiomyopathy (02/21/15) Cataracts, bilateral (07/26/17) CHF (congestive heart failure) Chronic neck pain Coronary artery disease Diabetes Hematuria (~2016) History of CVA (cerebrovascular accident) (07/12/16) Hyperlipidemia Hypertension Lower extremity edema Peripheral vascular disease PVD (peripheral vascular disease) Rash Renal failure Status post myocardial infarction (1994) Systolic CHF Surgical History History of cranioplasty (10/30/16) History of surgery on arm History of vasectomy S/P TURP (10/19/13) Status post craniectomy (07/12/16) Family History Mother Age: 91 Dementia Father Cancer Social History household members: spouse Smoking Status: Former smoker second hand exposure: No alcohol intake: never substance use type: does not use Smoking Status: Former smoker Substance Use Type: does not use Exam Narrative Exam Narrative: GENERAL: [70 year old patient appears stated age. Well-developed patient, in mild distress. Nonverbal, when asked if he is having any pain, trouble breathing or any discomfort he says no. HEAD: Atraumatic. Normocephalic. EYES: Pupils equal round and reactive. Extraocular motions intact. No scleral icterus. No injection or drainage. ENT: Nose without bleeding, purulent drainage. Throat without erythema, tonsillar hypertrophy or exudate. Airway patent. NECK: Trachea midline. Non tender CARDIOVASCULAR: Irregularly irregular rhythm without murmurs, gallops, or rubs. RESPIRATORY: Clear to auscultation. Breath sounds equal bilaterally. No wheezes, rales, or rhonchi. GASTROINTESTINAL: Abdomen soft, non-tender, nondistended. EXTREMITIES: No edema or joint tenderness. BACK: Nontender without deformity or crepitance. No flank tenderness. NEURO: AOx3. SKIN: No rash or erythema of visible areas Initial Vital Signs Initial Vital Signs: Vital Signs Pulse Rate 96 H 06/01/21 21:13 Pulse Oximetry 96 06/01/21 21:13 Course Orders Ordered: ED Orders 06/01/21 23:30 Trop I [Troponin I] Stat 06/02/21 00:40 COVID19 - ADMIT ([employer] swab/PCR) Stat Acetaminophen (Acetaminophen 325 Mg Tablet) 650 mg PO Q6HR PRN PRN Reason: Fever/Mild Pain (1-3) Apixaban (Apixaban 5 Mg Tablet) 2.5 mg PO BID [facility] Aspirin (Aspirin Ec 81 Mg Tablet) 81 mg PO DAILY [facility] Atorvastatin Calcium (Atorvastatin 20 Mg Tablet) 20 mg PO BEDTIME [facility] Cyclobenzaprine HCl (Cyclobenzaprine 10 Mg Tablet) 10 mg PO TID PRN PRN Reason: Spasms Dextrose (Dextrose 50 % In Water 25 Gm/50 Ml Syringe) 25 gm IV PRN PRN PRN Reason: Hypoglycemia Dextrose (Dextrose 50 % In Water 25 Gm/50 Ml Syringe) 25 gm IV PRN PRN PRN Reason: Hypoglycemia Finasteride (Finasteride 5 Mg Tablet) 5 mg PO DAILY [facility] Fluoxetine HCl (Fluoxetine 20 Mg Capsule) 20 mg PO DAILY [facility] Furosemide (Furosemide 40 Mg/4 Ml Vial) 40 mg IV 0900 [facility] Stop: 06/02/21 09:01 Sodium Chloride (Normal Saline 0.9%) 1,000 mls @ 150 mls/hr IV CONT SHAUN Last Admin: 06/01/21 21:31 Dose: 150 mls/hr Documented by: ATAYLOR Insulin Glargine (Insulin Glargine 100 Unit/Ml 3ml Pen) 40 unit SUBCUT 0800 [facility] Insulin Glargine (Insulin Glargine 100 Unit/Ml 3ml Pen) 90 unit SUBCUT 2100 [facility] Insulin Human Lispro (Insulin Lispro 100 Unit/Ml 3ml Vial) 5 unit SUBCUT DAILYCC [facility] Insulin Human Lispro (Insulin Lispro 100 Unit/Ml 3ml Vial) 0 unit SUBCUT ACHS SHAUN; Protocol Metoprolol Succinate (Metoprolol Er 25 Mg Tablet) 25 mg PO DAILY [facility] Mupirocin (Mupirocin 22 Gm Oint) 1 applic TOP TID [facility] Naloxone HCl (Naloxone 0.4 Mg/Ml Vial) 0.2 mg IV Q2MIN PRN PRN Reason: Opiate Reversal Nitroglycerin (Nitroglycerin 0.4 Mg Sl Tab) 0.4 mg SL Q5M PRN PRN Reason: Chest Pain Non-Formulary Medication (Entresto) 24 mg PO BID [facility] Ondansetron HCl (Ondansetron 4 Mg/2 Ml Inj) 4 mg IV Q8HR PRN PRN Reason: Nausea And Vomiting Polyethylene Glycol (Polyethylene Glycol 3350 17 Gm Powd.Pack) 17 gm PO DAILY [facility] Quetiapine Fumarate (Quetiapine 25 Mg Tablet) 6.25 mg PO DAILY [facility] Quetiapine Fumarate (Quetiapine 25 Mg Tablet) 12.5 mg PO BEDTIME [facility] Sennosides (Sennosides 8.6 Mg Tablet) 25.8 mg PO Q12H [facility] Last Admin: 06/02/21 02:00 Dose: Not Given Documented by: LUZMARIA Discontinued Medications Albuterol (Albuterol 2.5 Mg/3 Ml Neb (Adult)) 2.5 mg INH RTQ6HR [facility] Aspirin (Aspirin 81 Mg Chew Tab) 324 mg PO NOW ONE Stop: 06/01/21 21:11 Last Admin: 06/01/21 21:31 Dose: 324 mg Documented by: SERJIO Enoxaparin Sodium (Enoxaparin 40 Mg/0.4 Ml Syringe) 40 mg SUBCUT DAILY [facility] Furosemide (Furosemide 40 Mg/4 Ml Vial) 40 mg IV NOW ONE Stop: 06/02/21 00:04 Last Admin: 06/02/21 00:41 Dose: 40 mg Documented by: HUGO Furosemide (Furosemide 40 Mg/4 Ml Vial) 40 mg IV DAILY [facility] Lisinopril (Lisinopril 5 Mg Tablet) 2.5 mg PO DAILY [facility] Non-Formulary Medication (Entresto) 24 mg PO DAILY [facility] Vital Signs Vital signs: Vital Signs - 8 hr 06/01/21 22:59 06/01/21 23:00 06/01/21 23:30 Pulse Rate 60 60 65 Respiratory Rate 17 17 20 Blood Pressure 129/64 Pulse Oximetry 97 96 97 06/01/21 23:31 06/02/21 00:00 06/02/21 00:33 Pulse Rate 67 60 97 H Respiratory Rate 18 17 29 H Blood Pressure 107/54 L 122/66 Pulse Oximetry 96 96 06/02/21 00:42 Pulse Rate 61 Respiratory Rate 15 Blood Pressure 132/60 Pulse Oximetry 98 MDM - Chest Pain Lab Data Result diagrams: 06/01/21 21:25 06/01/21 21:25 Labs: Lab Results 06/01/21 06/01/21 06/01/21 Range/Units 21:25 21:25 21:25 WBC 10.4 (4.5-11.0) X10^3/uL RBC 4.94 (4.5-5.9) X10^6/uL Hgb 14.1 (13.5-17.5) g/dL Hct 42.6 (41-53) % MCV 86.2 (80-100) fL MCH 28.5 (26-34) PG MCHC 33.0 (30-36) % RDW 14.9 H (11.6-14.8) % Plt Count 215 (150-400) X10^3/uL Neut % (Auto) 69.1 (50-75) % Lymph % (Auto) 19.4 L (25-40) % [place] % (Auto) 8.2 (3-14) % Eos % (Auto) 2.7 (2-4) % Baso % (Auto) 0.6 (0-2) % Neut # (Auto) 7200 H (6053-7872) /uL Lymph # (Auto) 2000 (1505-1176) /uL [place] # (Auto) 800 (0-900) /uL Eos # (Auto) 300 (0-450) /uL Baso # (Auto) 100 (0-100) /uL PT 12.5 (10.1-12.7) SECONDS INR 1.1 (0.9-1.3) Sodium 138 (137-145) mmol/L Potassium 4.0 (3.4-5.1) mmol/L Chloride 99 (98-107) mmol/L Carbon Dioxide 31 (22-32) mmol/L BUN 36 H (9-20) mg/dL Creatinine 1.24 (0.66-1.25) mg/dL Estimated GFR 57.3 L (>60) mL/min BUN/Creatinine Ratio 29.0 H (6-22) Glucose 287 H (80-110) mg/dL Hemoglobin A1c (4.0-6.0) % Calcium 9.0 (8.4-10.2) mg/dL Total Bilirubin 0.6 (0.2-1.3) mg/dL AST 28 (17-59) IU/L ALT 24 (<50) IU/L Alkaline Phosphatase 64 (38-126) U/L Total Creatine Kinase 130 (55-170) U/L CK-MB (CK-2) 1.61 (<2.37) ng/mL CK-MB (CK-2) Rel Index 1.2 L (1.5-5.0) % Troponin I 0.018 (0.01-0.034) ng/mL NT-Pro-B Natriuret Pep 1560 H (<125) pg/mL Total Protein 7.5 (6.3-8.2) g/dL Albumin 4.3 (3.5-5.0) g/dL Globulin 3.2 (1.7-4.1) g/dL Albumin/Globulin Ratio 1.3 (1.0-2.8) Lipase 226 (23-300) U/L SARS-CoV-2 (PCR) (Negative) 06/01/21 06/01/21 06/02/21 Range/Units 21:25 23:30 00:40 WBC (4.5-11.0) X10^3/uL RBC (4.5-5.9) X10^6/uL Hgb (13.5-17.5) g/dL Hct (41-53) % MCV (80-100) fL MCH (26-34) PG MCHC (30-36) % RDW (11.6-14.8) % Plt Count (150-400) X10^3/uL Neut % (Auto) (50-75) % Lymph % (Auto) (25-40) % [place] % (Auto) (3-14) % Eos % (Auto) (2-4) % Baso % (Auto) (0-2) % Neut # (Auto) (6452-9688) /uL Lymph # (Auto) (5442-2702) /uL [place] # (Auto) (0-900) /uL Eos # (Auto) (0-450) /uL Baso # (Auto) (0-100) /uL PT (10.1-12.7) SECONDS INR (0.9-1.3) Sodium (137-145) mmol/L Potassium (3.4-5.1) mmol/L Chloride (98-107) mmol/L Carbon Dioxide (22-32) mmol/L BUN (9-20) mg/dL Creatinine (0.66-1.25) mg/dL Estimated GFR (>60) mL/min BUN/Creatinine Ratio (6-22) Glucose (80-110) mg/dL Hemoglobin A1c 7.8 H (4.0-6.0) % Calcium (8.4-10.2) mg/dL Total Bilirubin (0.2-1.3) mg/dL AST (17-59) IU/L ALT (<50) IU/L Alkaline Phosphatase (38-126) U/L Total Creatine Kinase (55-170) U/L CK-MB (CK-2) (<2.37) ng/mL CK-MB (CK-2) Rel Index (1.5-5.0) % Troponin I 0.035 H (0.01-0.034) ng/mL NT-Pro-B Natriuret Pep (<125) pg/mL Total Protein (6.3-8.2) g/dL Albumin (3.5-5.0) g/dL Globulin (1.7-4.1) g/dL Albumin/Globulin Ratio (1.0-2.8) Lipase (23-300) U/L SARS-CoV-2 (PCR) Negative (Negative) Imaging Data Chest x-ray: Radiologist's Impression: [address] [address] XRay Report Signed Patient: Jackie Hurley Jr MR#: [id number] : 1950 Acct:[id number] Age/Sex: 70 / M Date of Service: 06/01/21 Loc: ED Accession Number: [id number] ?? Procedure: XR chest 1V Ordering Provider: Luis Caldwell D.O. PROCEDURE:? XR CHEST 1V ? INDICATIONS:? chest pain ? TECHNIQUE:? One view of the chest was acquired.? ? COMPARISON:? [facility], CR, XR CHEST 1V, 10/12/2020, 16:18. ? FINDINGS:? ? Surgical changes and devices:? None.? ? Lungs and pleura:? Patchy bilateral interstitial change, as before.? No pleural effusions or pneumothorax.? ? Mediastinum:? Mediastinal contours appear normal.? Mild cardiomegaly. ? Bones and chest wall:? No suspicious bony lesions.? Overlying soft tissues appear unremarkable.? ? IMPRESSION:? Mild cardiomegaly.? Patchy bilateral interstitial change, as before.? Cannot exclude viral pneumonia. ? ? Dictated by: Dionicio Rogel M.D. on 06/01/2021 at 21:48 ? ? Approved by: Dionicio Rogel M.D. on 06/01/2021 at 21:49? ECG Data Interpretation: Atrial fibrillation with left bundle-branch block, rate in the mid 80s. No evidence of ST elevation or depression. None of Sgarbossa's criteria present (unchanged from multiple priors) MDM Narrative Medical decision making narrative: Patient presents with chest pain just prior to arrival the started at rest and improved with nitro. He is asymptomatic for the duration of his visit here. EKGs are nonischemic and unchanged from priors. Initial troponin was unremarkable but had elevated some at the 2 hour kristin. He does have evidence of acute heart failure. There is some suggestion that perhaps he was in a rapid atrial fibrillation, however ischemic heart disease cannot be ruled out at this point time. He will require hospitalization for further evaluation and characterization of his disease Discharge Plan Departure Patient Disposition: Admitted as Observation Clinical Impression: Chest pain Admit Date/Time: 06/02/21 00:44 Admit Provider: Shanon Santos
--- NOTE | 2021-06-01 21:10 | DI.RAD.S_ITS ---
PROCEDURE: XR CHEST 1V INDICATIONS: chest pain TECHNIQUE: One view of the chest was acquired. COMPARISON: [facility], CR, XR CHEST 1V, 10/12/2020, 16:18. FINDINGS: Surgical changes and devices: None. Lungs and pleura: Patchy bilateral interstitial change, as before. No pleural effusions or pneumothorax. Mediastinum: Mediastinal contours appear normal. Mild cardiomegaly. Bones and chest wall: No suspicious bony lesions. Overlying soft tissues appear unremarkable. IMPRESSION: Mild cardiomegaly. Patchy bilateral interstitial change, as before. Cannot exclude viral pneumonia. Dictated by: Dionicio Rogel M.D. on 06/01/2021 at 21:48 Approved by: Dionicio Rogel M.D. on 06/01/2021 at 21:49
[2021-06-01] MEDS: SODIUM CHLORIDE 0.9% 1,000 ML 150 ML IV (21:31)
[2021-06-01] MEDS: ASPIRIN 81 MG CHEW TAB 324 MG PO (21:31)
[2021-06-01 21:40] LABS: Add Manual Diff / Slide Review NO; Basophils Absolute Auto 100 /uL (0-100); Basophils Percent Auto 0.6 % (0-2); Eosinophils Absolute Auto 300 /uL (0-450); Eosinophils Percent Auto 2.7 % (2-4); Hematocrit 42.6 % (41-53); Hemoglobin 14.1 g/dL (13.5-17.5); INR 1.1 (0.9-1.3); Lymphocytes Absolute Auto 2000 /uL (1100-4500); Lymphocytes Percent Auto 19.4 % (25-40); Mean Corpuscular Hemoglobin 28.5 PG (26-34); Mean Corpuscular Volume 86.2 fL (80-100); Monocytes Absolute Auto 800 /uL (0-900); Monocytes Percent Auto 8.2 % (3-14); Neutrophils Absolute Auto 7200 /uL (1500-7000); Neutrophils Percent Auto 69.1 % (50-75); Platelet Count 215 X10^3/uL (150-400); Prothrombin Time 12.5 SECONDS (10.1-12.7); Red Blood Cell Count 4.94 X10^6/uL (4.5-5.9); Red Cell Distribution Width 14.9 % (11.6-14.8); White Blood Cell Count 10.4 X10^3/uL (4.5-11.0)
[2021-06-01 21:45] LABS: Alanine Aminotransferase 24 IU/L (<50); Albumin 4.3 g/dL (3.5-5.0); Albumin Globulin Ratio 1.3 (1.0-2.8); Alkaline Phosphatase 64 U/L (38-126); Aspartate Aminotransferase 28 IU/L (17-59); Bilirubin Total 0.6 mg/dL (0.2-1.3); Blood Urea Nitrogen 36 mg/dL (9-20); Carbon Dioxide 31 mmol/L (22-32); Chloride 99 mmol/L (98-107); Creatine Kinase 130 U/L (55-170); Estimated Glomerular Filt Rate 57.3 mL/min (>60); Globulin 3.2 g/dL (1.7-4.1); Glucose 287 mg/dL (80-110); HEMOLYSIS 30 (0-50); Lipase 226 U/L (23-300); Sodium 138 mmol/L (137-145); Total Protein 7.5 g/dL (6.3-8.2)
[2021-06-01 21:57] LABS: NT-proBNP (BNP-Adult 18+) 1560 pg/mL (<125); Troponin I 0.018 ng/mL (0.01-0.034)
[2021-06-01 22:00] LABS: CKMB % Relative Index 1.2 % (1.5-5.0); Creatine Kinase MB 1.61 ng/mL (<2.37)
[2021-06-02] VITALS (9 sets, daily range): BP systolic 118–136; BP diastolic 48–66; PULSE 60–97; RESP 15–29; TEMP 35.9–36.7; O2SAT 96–100; BMI 38.7
[2021-06-02 00:02] LABS: Troponin I 0.035 ng/mL (0.01-0.034)
[2021-06-02] MEDS: FUROSEMIDE 40 MG/4 ML VIAL IV ×2 (00:41→10:48)
[2021-06-02 01:48] LABS: COVID19 - ADMIT (NP swab/PCR) Negative (Negative)
--- NOTE | 2021-06-02 02:27 | P.HP_ITS ---
History of Present Illness History of Present Illness Date Patient Seen: 06/02/21 Time Patient Seen: 02:27 Chief complaint: Chest pain/high blood pressure/a-fib/ Narrative: Efraín Hurley is a 70 year old male known to the staff with a history of a prior [place], CVA, significant aphasia, and congestive heart failure with an ejection fraction of 20-30%, and atrial fibrillation anticoagulated on apixaban, presented to the emergency department with chest pain. He was sitting in the living room when his came in to check in on him and put some lotion on his right lower chest. He started to point to his chest above and in the middle and she asked him if he was having chest pain to which she signal that he did. Today per Esperanza after taking entry still which he was prescribed, he started to become hypotensive at home with a blood pressure starting at 138/78, repeat was 84/54 then started to trend back upwards to 94/67. She gave him two nitro sl 5 minutes and his symptoms resolved. His oxygen saturation at home taken was 83% then went up to 95%. Per his , he is to stop his Entresto until further directions from his consulting services associate in the morning. Patient is unable to give me a history because of the cognitive affects of his stroke. Per his Esperanza, he sees Dr. Moreno at [facility] in their offices in [place]. She stated that they want to place a defibrillator however the patient is somewhat resisting this. He is a full code however and understands that if he wants to continue to live he will need to have this. In September of this year he was admitted for a CHF exacerbation however he had rising troponins and was transferred out to [facility] who did an echocardiogram, was kept overnight and was supposed to undergo stress testing however that was not done until a little bit later in October. The stress test that he underwent indicated that he had an abnormal myocardial perfusion study with a large area of infarct involving the apical 3rd of the heart and extending into the mid inferior inferolateral and anterior anterior septal regions. It also identified a large fixed defect of severe intensity present in the basal inferolateral, mid anterior, mid anterior, septal, mid inferior, mid inferola teral, apical, anterior apical, septal, apical inferior, apical lateral, and apex location. He had a repeat echocardiogram on the 29 of May which placed him with an EF of 20% whereas previously his EF was estimated to be 30%. Chest x-ray ordered in the ED indicated similar abnormalities including patchy interstitial changes in the lungs with possible viral pneumonia. The ED he was given 1 dose of Lasix 40 mg x 1. Currently is temperature is 98.1?, blood pressure 136/48, heart rate 66, respiratory rate 20, oxygen saturation 99% on room air, he weighs 126 kg with a BMI of 30.7. CBC is unremarkable, basic chemistries are within normal limits with exception of his glucose which is 287 and A1c of 7.8, his his troponin was done twice in the emergency department initially at 0.018 and now 0.035, proBNP is 1560, and COVID 19 PCR is negative. Patient History Medical History Acute CHF Atrial fibrillation (02/21/15) Benign prostatic hyperplasia BPH (benign prostatic hyperplasia) Cardiomyopathy (02/21/15) Cataracts, bilateral (07/26/17) CHF (congestive heart failure) Chronic neck pain Coronary artery disease Diabetes Hematuria (~2016) History of CVA (cerebrovascular accident) (07/12/16) Hyperlipidemia Hypertension Lower extremity edema Peripheral vascular disease PVD (peripheral vascular disease) Rash Renal failure Status post myocardial infarction (1994) Systolic CHF Surgical History History of cranioplasty (10/30/16) History of surgery on arm History of vasectomy S/P TURP (10/19/13) Status post craniectomy (07/12/16) Family & Social History Family History Mother Age: 91 Dementia Father Cancer Social History: household members spouse Safety & Behavioral: Feels Safe in Current Yes Environment Tobacco & Substance use: Smoking Status Former smoker alcohol intake never Substance Use Type does not use Meds Home Medications and Allergies Home Medications Medication Instructions Recorded Confirmed Type insulin regular human 100 unit/mL See Rx Instructions SUBCUT TIDAC 11/05/17 05/09/21 Rx injection solution (Humulin R #10 ml Regular U-100 Insulin) Syringes: Ultra Fine Insulin #100 each 02/14/18 05/09/21 Rx Syringe w/Needle Light pressure salma hose #1 ea 07/05/18 05/09/21 Rx Donut Pillow #1 ea 07/06/18 05/09/21 Rx zinc oxide 20 % topical ointment 1 applictn TOP BID PRN #56.7 gram 07/07/18 05/09/21 Rx Medium to high pressure socks #1 ea 09/06/18 05/09/21 Rx Lancet: Device 1 st INJ QID 02/23/19 05/09/21 History docusate calcium 240 mg capsule 240 mg PO QID 02/23/19 06/02/21 History magnesium citrate 150 ml PO BID PRN #296 ml 02/23/19 05/09/21 Rx sennosides 8.6 mg tablet (senna) 25.8 mg PO Q12H 02/23/19 05/09/21 History aspirin 81 mg tablet,delayed 81 mg PO DAILY 06/07/19 06/02/21 History release (Adult Aspirin Regimen) ProAir HFA 90 mcg/actuation See Rx Instructions .ROUTE 10/16/19 05/09/21 Rx aerosol inhaler (albuterol sulfate) .COMPLEX #8.5 gram NS mupirocin 2 % topical ointment 1 applic TOP TID #30 gram 02/24/20 05/09/21 Rx quetiapine 25 mg tablet See Rx Instructions .ROUTE 06/25/20 06/02/21 Rx .COMPLEX #90 tab insulin lispro 100 unit/mL 5 unit (0.05 mL) SUBCUT DAILY #15 07/17/20 05/09/21 Rx subcutaneous pen (Humalog KwikPen ml (U-100) Insulin) nitroglycerin 0.4 mg sublingual 0.4 mg SUBLINGUAL Q5M PRN 10/22/20 06/02/21 History tablet torsemide 20 mg tablet 30 mg PO DAILY tab 10/22/20 06/02/21 History triamcinolone acetonide 0.1 % See Rx Instructions .ROUTE 11/11/20 05/09/21 Rx topical cream .COMPLEX #30 g blood sugar diagnostic (OneTouch See Rx Instructions .ROUTE 02/17/21 05/09/21 Rx Verio test strips) .COMPLEX #300 strip pen needle, diabetic 31 gauge x See Rx Instructions .ROUTE 02/25/21 05/09/21 Rx 5/16 (BD Ultra-Fine Short Pen .COMPLEX #100 ea Needle) simvastatin 40 mg tablet See Rx Instructions .ROUTE 03/07/21 06/02/21 Rx .COMPLEX #90 tab nystatin 100,000 unit/gram topical 1 applic TOPICAL TID 14 Days #150 g 03/29/21 06/02/21 Rx cream fluoxetine 20 mg capsule See Rx Instructions .ROUTE 03/31/21 06/02/21 Rx .COMPLEX #90 cap cyclobenzaprine 10 mg tablet See Rx Instructions .ROUTE 04/01/21 06/02/21 Rx .COMPLEX #90 tab terbinafine HCl 1 % topical cream 1 applic TOPICAL BID #30 g 04/09/21 05/09/21 Rx hydrocodone 5 mg-acetaminophen 325 1 tab PO Q6H #120 tab 04/14/21 06/02/21 Rx mg tablet finasteride 5 mg tablet See Rx Instructions .ROUTE 05/01/21 06/02/21 Rx .COMPLEX #90 tab metoprolol succinate 25 mg 25 mg PO DAILY #90 tab 05/01/21 06/02/21 Rx tablet,extended release 24 hr tamsulosin 0.4 mg capsule See Rx Instructions .ROUTE 05/01/21 06/02/21 Rx .COMPLEX #180 cap apixaban 2.5 mg tablet (Eliquis) See Rx Instructions .ROUTE 05/09/21 06/02/21 History .COMPLEX tab fluconazole 50 mg tablet 50 mg PO DAILY #7 tab 05/09/21 05/09/21 Rx potassium chloride 10 mEq See Rx Instructions .ROUTE 05/09/21 06/02/21 Rx capsule,extended release .COMPLEX #180 cap sacubitril 24 mg-valsartan 26 mg 1 tab PO BID 05/09/21 05/09/21 History tablet (Entresto) Lantus Solostar U-100 Insulin 100 See Rx Instructions .ROUTE 05/13/21 Rx unit/mL (3 mL) subcutaneous pen .COMPLEX #30 ml NS (insulin glargine) mupirocin 2 % topical ointment 1 applic TOPICAL BID #15 g 05/14/21 Rx polyethylene glycol 3350 17 gram See Rx Instructions .ROUTE 05/20/21 Rx oral powder packet .COMPLEX #30 ea Allergies Allergy/AdvReac Type Severity Reaction Status Date / Time triamcinolone Allergy Mild Hives Verified 05/09/21 12:08 Review of Systems Review of Systems ROS: Yes other (Patient is dysphasic.) Exam Vital Signs (past 8 hours): - 06/01/21 21:13 06/01/21 21:14 06/01/21 21:22 Temperature 97.3 F L Pulse Rate 96 H 83 82 Respiratory Rate 20 Blood Pressure 128/61 128/61 Pulse Oximetry 96 100 100 06/01/21 21:30 06/01/21 21:37 06/01/21 21:39 Temperature Pulse Rate 112 H 93 H 110 H Respiratory Rate 23 18 18 Blood Pressure 90/64 Pulse Oximetry 96 94 95 06/01/21 22:07 06/01/21 22:09 06/01/21 22:10 Temperature Pulse Rate 87 80 83 Respiratory Rate 21 20 21 Blood Pressure 113/82 Pulse Oximetry 96 97 96 06/01/21 22:11 06/01/21 22:30 06/01/21 22:59 Temperature Pulse Rate 80 64 60 Respiratory Rate 19 18 17 Blood Pressure 120/59 L Pulse Oximetry 95 93 97 06/01/21 23:00 06/01/21 23:30 06/01/21 23:31 Temperature Pulse Rate 60 65 67 Respiratory Rate 17 20 18 Blood Pressure 129/64 107/54 L Pulse Oximetry 96 97 96 06/02/21 00:00 06/02/21 00:33 06/02/21 00:42 Temperature Pulse Rate 60 97 H 61 Respiratory Rate 17 29 H 15 Blood Pressure 122/66 132/60 Pulse Oximetry 96 98 06/02/21 01:00 06/02/21 01:21 Temperature 98.1 F Pulse Rate 60 66 Respiratory Rate 18 20 Blood Pressure 129/60 136/48 L Pulse Oximetry 96 99 Oxygen Delivery Method Room Air Oxygen Flow Rate 0 Narrative Exam Narrative: Gen: Alert, oriented, morbidly obese 70y.o. male, NAD HEENT: normocephalic, atraumatic, conjunctiva clear, sclera non-icteric, oral mucosa pink and moist Neck: supple, full ROM, no JVD, trachea is midline Resp: Lungs CTA, non-labored breathing CV: irregularly irregular, no murmur or rubs Abd: soft, non-tender, normoactive BTs Skin: no lesions or rashes, dry and intact Neuro: Alert and oriented X 3 w/significant short term memory impairment and aphasia. States I don't know frequently, though makes other attempts at speech. Extremities: moves all 4 extremities, is ambulatory, negative Elliott?s sign Psyche: normal mood and affect. Objective Labs Result Diagrams: 06/01/21 21:25 06/01/21 21:25 Labs: Laboratory Results - last 24 hr 06/01/21 06/01/21 06/01/21 21:25 21:25 21:25 WBC 10.4 RBC 4.94 Hgb 14.1 Hct 42.6 MCV 86.2 MCH 28.5 MCHC 33.0 RDW 14.9 H Plt Count 215 Neut % (Auto) 69.1 Lymph % (Auto) 19.4 L [place] % (Auto) 8.2 Eos % (Auto) 2.7 Baso % (Auto) 0.6 Neut # (Auto) 7200 H Lymph # (Auto) 2000 [place] # (Auto) 800 Eos # (Auto) 300 Baso # (Auto) 100 PT 12.5 INR 1.1 Sodium 138 Potassium 4.0 Chloride 99 Carbon Dioxide 31 BUN 36 H Creatinine 1.24 Estimated GFR 57.3 L BUN/Creatinine Ratio 29.0 H Glucose 287 H Calcium 9.0 Total Bilirubin 0.6 AST 28 ALT 24 Alkaline Phosphatase 64 Total Creatine Kinase 130 CK-MB (CK-2) 1.61 CK-MB (CK-2) Rel Index 1.2 L Troponin I 0.018 NT-Pro-B Natriuret Pep 1560 H Total Protein 7.5 Albumin 4.3 Globulin 3.2 Albumin/Globulin Ratio 1.3 Lipase 226 SARS-CoV-2 (PCR) 06/01/21 06/02/21 23:30 00:40 WBC RBC Hgb Hct MCV MCH MCHC RDW Plt Count Neut % (Auto) Lymph % (Auto) [place] % (Auto) Eos % (Auto) Baso % (Auto) Neut # (Auto) Lymph # (Auto) [place] # (Auto) Eos # (Auto) Baso # (Auto) PT INR Sodium Potassium Chloride Carbon Dioxide BUN Creatinine Estimated GFR BUN/Creatinine Ratio Glucose Calcium Total Bilirubin AST ALT Alkaline Phosphatase Total Creatine Kinase CK-MB (CK-2) CK-MB (CK-2) Rel Index Troponin I 0.035 H NT-Pro-B Natriuret Pep Total Protein Albumin Globulin Albumin/Globulin Ratio Lipase SARS-CoV-2 (PCR) Negative Assessment & Plan Assessment & Plan narrative: Jackie Hurley will be observed overnight for a probable CHF exacerbation. 1. CHF exacerbation, acute and present on admission * HFrEF, appears to worsened from 30 to 20% based on 05/29 echo, present on admission * ProBNP is 1560 * Last echo, the patient had an EF of 30% * Advise contacting [facility] in the am for further direction * He was recently started on ARNI therapy (Entresto), they recommended holding Entresto due to hypotension, however his bp appears to be normalizing. * Lisinopril was discontinued as it is contraindicated with ARNI therapy. * He received 1 dose of IV lasix in the ED and is scheduled for a dose in the am * Cardiology recommends internally planted defibrillator 2. Chest pain likely related to CHF, acute and present on admission * 2nd troponin was?0.035. Repeat with am labs * Last echo was on May 29, will not repeat this admit unless requested by cardiology, they recommend use of Difinity * Continue nitro q 5 minutes prn chest pain 3. Essential hypertension * See nos 1 and 2 * Pt. currently not on a beta cole and is normotensive, borderline hypotensive. 4. Diabetes type 2 with an A1c of 7.8, not well controlled * Aic is is worse since September 2020 * Continue home doses of glargine 40 units in the am, 90 units in the pm, humalog 5 units in the am and low dose correctional scale insulin. * Carb controlled diet 6. Past history of a hemmorhagic CVA * Patient is aphasic at baseline 7. HLD * Lipid panel, pending * Continue home dose of simvastatin 40 mg po at bedtime VTE prophylaxis:? Wells risk score: 0 Continue home dose of apixaban 2.5 mg po bid Consults: Recommend Cardiology consult in the am, or transfer if he has a large rise in his troponin. Patient is placed into observation as his stay is not expected to exceed 2 midnights. FEN: Saline lock, low sodium carb controlled diet, BMP and magnesium in the am. Dispo: Unknown at this time Code Status: Full code as discussed with his , Esperanza, his surrogate [X] I have utilized all available immediate resources to obtain, update, or review of the patient's current medications COVID-19 COVID-19 status: Negative Time Spent With Patient Critical Care time: I spent a total of [] minutes of critical care time on this patient's care today; this time is exclusive of procedural time. Scores CHADS-VASc Congestive heart failure: yes Hypertension: yes Age 75 years or older: no Diabetes mellitus: yes Stroke, TIA, or TE: yes Vascular disease: yes Age 65 to 74 years: yes Sex category (female): Male CHADS-VASc Score: 7 Wells' Criteria for PE Clinical signs and symptoms of DVT: No PE is #1 Dx or equally likely: No Heart rate > 100: No Immobilization at least 3 days or surg in previous 4 weeks: No History of PE or DVT: No Hemoptysis: No Malignancy w/Treatment within 6 months or palliative: No Wells' PE Score total: 0 Quality VTE Deep Vein Thrombosis/Pulmonary Embolism Present on Admission: No MIPS - Admit I confirm the patient?s Advance Care Plan is present, Code status is documented, Surrogate decision maker is in patient?s record [If Yes, STOP here]: Yes MIPS - DC The patient has current or prior documentation of left ventricular ejection fraction (LVEF) less than 40%, or moderate or severely depressed left ventricular systolic function.: Yes A. The patient was prescribed or already taking an Angiotensin-Converting Enzyme (RENETTA) Inhibitor, or Angiotensin Receptor Cole (ARB).: Yes B. The patient was prescribed or already taking a beta-cole. [If Yes to Both A & B, STOP here]: Yes
[2021-06-02 02:32] LABS: Hemoglobin A1C% w Est Avg Glu 7.8 % (4.0-6.0)
[2021-06-02 04:47] LABS: Magnesium 2.3 mg/dL (1.6-2.3)
[2021-06-02 06:51] LABS: Add Manual Diff / Slide Review NO; Basophils Absolute Auto 0 /uL (0-100); Basophils Percent Auto 0.4 % (0-2); Eosinophils Absolute Auto 100 /uL (0-450); Eosinophils Percent Auto 1.3 % (2-4); Hematocrit 38.2 % (41-53); Hemoglobin 12.9 g/dL (13.5-17.5); Lymphocytes Absolute Auto 2100 /uL (1100-4500); Lymphocytes Percent Auto 22.1 % (25-40); Mean Corpuscular HGB Conc 33.8 % (30-36); Mean Corpuscular Hemoglobin 28.5 PG (26-34); Mean Corpuscular Volume 84.3 fL (80-100); Monocytes Absolute Auto 800 /uL (0-900); Monocytes Percent Auto 8.2 % (3-14); Neutrophils Absolute Auto 6500 /uL (1500-7000); Platelet Count 195 X10^3/uL (150-400); Red Blood Cell Count 4.54 X10^6/uL (4.5-5.9); Red Cell Distribution Width 14.6 % (11.6-14.8); White Blood Cell Count 9.5 X10^3/uL (4.5-11.0)
[2021-06-02 06:57] LABS: BUN Creatinine Ratio 27.4 (6-22); Blood Urea Nitrogen 32 mg/dL (9-20); Calcium 8.5 mg/dL (8.4-10.2); Carbon Dioxide 28 mmol/L (22-32); Chloride 102 mmol/L (98-107); Estimated Glomerular Filt Rate > 60.0 mL/min (>60); Glucose 217 mg/dL (80-110); HEMOLYSIS 23 (0-50); Sodium 138 mmol/L (137-145)
[2021-06-02 07:09] LABS: Troponin I 0.063 ng/mL (0.01-0.034)
[2021-06-02] MEDS: MUPIROCIN 22 GM OINT 1 APPLIC TOP (09:37)
[2021-06-02] MEDS: INSULIN GLARGINE 100 UNIT/ML 3ML PEN 40 UNIT SUBCUT (09:37)
[2021-06-02] MEDS: FLUoxetine 20 MG CAPSULE PO (10:37)
[2021-06-02] MEDS: METOPROLOL ER 25 MG TABLET PO (10:37)
[2021-06-02] MEDS: FINASTERIDE 5 MG TABLET PO (10:37)
[2021-06-02] MEDS: polyethylene glycoL 3350 17 GM POWD.PACK PO (10:37)
[2021-06-02] MEDS: ASPIRIN EC 81 MG TABLET PO (10:37)
[2021-06-02] MEDS: QUETIAPINE 25 MG TABLET 6.25 MG PO (10:38)
[2021-06-02] MEDS: APIXABAN 5 MG TABLET PO (10:46)
--- NOTE | 2021-06-02 15:54 | CM.DANOTE ---
DCP/Assessment: Reviewed chart. Patient is a 70yr old male admitted to [facility] with chest pain. PCP is Dr. Lyons. Primary payor is 1)[facility] 2)Medicaid. Met with patient and spouse/Marueen at bedside explained CM/SW role. Patient and spouse report that they do not anticipate any d/c planning needs. Patient reports that he is primarily I with all ADL's. Spouse reports that if DME needed they do have. Patient and spouse hopeful that patient will d/c home later today. P: Home when stable. 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 Yes Advance Directives on File No History Provided By Patient,Significant Other, Medical Record Prior Living Arrangements House Household Members spouse Type of transporation used prior to Relies on Others admit Independent with ADL's Yes Is patient alert and oriented? Yes Caregiver for Another No Comment Per spouse patient does not currently use DME but does have it available if needed. Barriers to Discharge No Discharge Plan Home Transportation Arrangement Spouse to provide transport. Referrals Initiated None needed Review Status In Process Next Review Type Continued Stay Review
--- NOTE | 2021-06-02 16:10 | PM.DS.1 ---
History of Present Illness History of Present Illness Chief complaint: Chest pain/high blood pressure/a-fib/ Narrative: Efraín Hurley is a 70 year old male known to the staff with a history of a prior IN, CVA, significant aphasia, and congestive heart failure with an ejection fraction of 20-30%, and atrial fibrillation anticoagulated on apixaban, presented to the emergency department with chest pain.? He was sitting in the living room when his came in to check in on him and put some lotion on his right lower chest.? He started to point to his chest above and in the middle and she asked him if he was having chest pain to which she signal that he did.? Today per Esperanza after taking entry still which he was prescribed, he started to become hypotensive at home with a blood pressure starting at 138/78, repeat was 84/54 then started to trend back upwards to 94/67. She gave him two nitro sl 5 minutes and his symptoms resolved. His oxygen saturation at home taken was 83% then went up to 95%.? Per his , he is to stop his Entresto until further directions from his mobile application developer in the morning.? Patient is unable to give me a history because of the cognitive affects of his stroke.? Per his Esperanza, he sees Dr. Moreno at [facility] in their offices in [place].? She stated that they want to place a defibrillator however the patient is somewhat resisting this.? He is a full code however and understands that if he wants to continue to live he will need to have this. In September of this year he was admitted for a CHF exacerbation however he had rising troponins and was transferred out to [facility] who did an echocardiogram, was kept overnight and was supposed to undergo stress testing however that was not done until a little bit later in October.? The stress test that he underwent indicated that he had an abnormal myocardial perfusion study with a large area of infarct involving the apical 3rd of the heart and extending into the mid inferior inferolateral and anterior anterior septal regions.? It also identified a large fixed defect of severe intensity present in the basal inferolateral, mid anterior, mid anterior, septal, mid inferior, mid inferolateral, apical, anterior apical, septal, apical inferior, apical lateral, and apex location.? He had a repeat echocardiogram on the 29 of May which placed him with an EF of 20% whereas previously his EF was estimated to be 30%. Chest x-ray ordered in the ED indicated similar abnormalities including patchy interstitial changes in the lungs with possible viral pneumonia.? The ED he was given 1 dose of Lasix 40 mg x 1.? Currently is temperature is 98.1?, blood pressure 136/48, heart rate 66, respiratory rate 20, oxygen saturation 99% on room air, he weighs 126 kg with a BMI of 30.7.? CBC is unremarkable, basic chemistries are within normal limits with exception of his glucose which is 287 and A1c of 7.8, his his troponin was done twice in the emergency department initially at 0.018 and now 0.035, proBNP is 1560, and COVID 19 PCR is negative. Discharge Providers Provider Date of admission: 06/02/21 00:44 Discharge Date: 06/02/21 Primary care physician: Edil Lyons DO Discharge provider: Catalino Ordonez MD Summary Hospital Course Discharge Diagnosis: Jackie Hurley will be observed overnight for an acute on chronic HFrEF (EF 20%) exacerbation 1. Acute exacerbation of chronic HFrEF (EF 20%) HFrEF, appears to worsened from 30 to 20% based on May 29 echo He was recently started on ARNI therapy (Entresto), they recommended holding Entresto due to hypotension, however his BP appears to be normalizing He improved back to baseline, per patient and his , who is also his stake driver, with IV Lasix 40 mg in ER Cardiology recommends internally planted defibrillator as an outpatient 2. Troponinemia, likely secondary to supply/demand mismatch from acute HFrEF exacerbation Patient and his at bedside endorse resolution of his CP now that he is back to his baseline volume status 3. Essential hypertension Will continue to hold outpatient Entresto, as patient recently advised by his outpatient mobile application developer to hold said med for low BP 4. Diabetes type 2 with an A1c of 7.8 Will continue home insulin regimen 6. Past history of a hemorrhagic CVA, unknown vascular distribution Patient has expressive/receptive aphasia at baseline, as residual effect 7. Hyperlipidemia Continue home dose of simvastatin 40 mg po at bedtime 8. Atrial fibrillation, on Eliquis 2.5 mg bid at home, and can continue outpatient Hospital Course: 70yo male with a hx of atrial fibrillation on Eliquis, insulin-dependent DM II, hx of hemorrhagic CVA of unknown distribution that has caused residual global aphasia, and ischemic HFrEF (EF 20%) that presents with an acute on chronic exacerbation of his HFrEF. Per the patient and his , who is also his live-in stake driver, patient has returned to baseline volume status after IV Lasix 40 mg one-time in ER. His CP has also not recurred after return to baseline volume status. Troponinemia is likely secondary to supply/demand mismatch from acute HFrEF exacerbation. Reportedly, he has been told by his mobile application developer that he needs an AICD, which is certainly reasonable given the patient's low EF. The patient has been considering this, and will follow-up with his mobile application developer outpatient. Both the patient and his expressed a strong desire to be discharged home today as they believe he is at his baseline health, and clinically appears to be as well. Patient will be discharged home with no changes to his outpatient medications, and encouraged to follow-up with his mobile application developer in 1-2 weeks. The patient's reports understanding the plan, is agreeable to the plan, and all her questions were answered to their apparent satisfaction. Exam Vital Signs (past 8 hours): - 06/02/21 10:37 06/02/21 11:07 06/02/21 12:00 Temperature 97.1 F L Pulse Rate 64 63 Respiratory Rate 20 Blood Pressure 129/62 118/64 Pulse Oximetry 100 Oxygen Delivery Method Room Air Oxygen Flow Rate 0 Narrative Exam Narrative: Gen: patient laying in bed comfortably upon my entering the room, eating breakfast, in no apparent acute distress HEENT: normocephalic, atraumatic, conjunctiva clear, sclera non-icteric Neck: no JVD, trachea is midline Resp: faint crackles appreciated to lung bases, with diminished breath sounds CV: irregularly irregular, no murmur or rubs Abd: soft, non-tender, non-distended, bowel sounds present Skin: no lesions or rashes, dry and intact Neuro: Alert and oriented X 3 w/significant short term memory impairment and aphasia. States I don't know frequently, though makes other attempts at speech. Extremities: moves all 4 extremities, is ambulatory Psyche: normal mood and affect. Objective Labs Result Diagrams: 06/02/21 04:20 06/02/21 04:20 Labs: Laboratory Results - last 24 hr 06/01/21 06/01/21 06/01/21 21:25 21:25 21:25 WBC 10.4 RBC 4.94 Hgb 14.1 Hct 42.6 MCV 86.2 MCH 28.5 MCHC 33.0 RDW 14.9 H Plt Count 215 Neut % (Auto) 69.1 Lymph % (Auto) 19.4 L King % (Auto) 8.2 Eos % (Auto) 2.7 Baso % (Auto) 0.6 Neut # (Auto) 7200 H Lymph # (Auto) 2000 King # (Auto) 800 Eos # (Auto) 300 Baso # (Auto) 100 PT 12.5 INR 1.1 Sodium 138 Potassium 4.0 Chloride 99 Carbon Dioxide 31 BUN 36 H Creatinine 1.24 Estimated GFR 57.3 L BUN/Creatinine Ratio 29.0 H Glucose 287 H Hemoglobin A1c Calcium 9.0 Magnesium Total Bilirubin 0.6 AST 28 ALT 24 Alkaline Phosphatase 64 Total Creatine Kinase 130 CK-MB (CK-2) 1.61 CK-MB (CK-2) Rel Index 1.2 L Troponin I 0.018 NT-Pro-B Natriuret Pep 1560 H Total Protein 7.5 Albumin 4.3 Globulin 3.2 Albumin/Globulin Ratio 1.3 Lipase 226 SARS-CoV-2 (PCR) 06/01/21 06/01/21 06/02/21 21:25 23:30 00:40 WBC RBC Hgb Hct MCV MCH MCHC RDW Plt Count Neut % (Auto) Lymph % (Auto) King % (Auto) Eos % (Auto) Baso % (Auto) Neut # (Auto) Lymph # (Auto) King # (Auto) Eos # (Auto) Baso # (Auto) PT INR Sodium Potassium Chloride Carbon Dioxide BUN Creatinine Estimated GFR BUN/Creatinine Ratio Glucose Hemoglobin A1c 7.8 H Calcium Magnesium Total Bilirubin AST ALT Alkaline Phosphatase Total Creatine Kinase CK-MB (CK-2) CK-MB (CK-2) Rel Index Troponin I 0.035 H NT-Pro-B Natriuret Pep Total Protein Albumin Globulin Albumin/Globulin Ratio Lipase SARS-CoV-2 (PCR) Negative 06/02/21 06/02/21 06/02/21 04:20 04:20 04:20 WBC 9.5 RBC 4.54 Hgb 12.9 L Hct 38.2 L MCV 84.3 MCH 28.5 MCHC 33.8 RDW 14.6 Plt Count 195 Neut % (Auto) 68.0 Lymph % (Auto) 22.1 L King % (Auto) 8.2 Eos % (Auto) 1.3 L Baso % (Auto) 0.4 Neut # (Auto) 6500 Lymph # (Auto) 2100 King # (Auto) 800 Eos # (Auto) 100 Baso # (Auto) 0 PT INR Sodium 138 Potassium 4.0 Chloride 102 Carbon Dioxide 28 BUN 32 H Creatinine 1.17 Estimated GFR > 60.0 BUN/Creatinine Ratio 27.4 H Glucose 217 H Hemoglobin A1c Calcium 8.5 Magnesium 2.3 Total Bilirubin AST ALT Alkaline Phosphatase Total Creatine Kinase CK-MB (CK-2) CK-MB (CK-2) Rel Index Troponin I 0.063 H NT-Pro-B Natriuret Pep Total Protein Albumin Globulin Albumin/Globulin Ratio Lipase SARS-CoV-2 (PCR) PFSH Medical History Acute CHF Atrial fibrillation (02/21/15) Benign prostatic hyperplasia BPH (benign prostatic hyperplasia) Cardiomyopathy (02/21/15) Cataracts, bilateral (07/26/17) CHF (congestive heart failure) Chronic neck pain Coronary artery disease Diabetes Hematuria (~2016) History of CVA (cerebrovascular accident) (07/12/16) Hyperlipidemia Hypertension Lower extremity edema Peripheral vascular disease PVD (peripheral vascular disease) Rash Renal failure Status post myocardial infarction (1994) Systolic CHF Surgical History History of cranioplasty (10/30/16) History of surgery on arm History of vasectomy S/P TURP (10/19/13) Status post craniectomy (07/12/16) Family History Mother Age: 91 Dementia Father Cancer Social History household members: spouse Smoking Status: Former smoker second hand exposure: No alcohol intake: never substance use type: does not use Discharge Assessment & Plan Assessment and Plan Assessment: Jackie Hurley will be observed overnight for an acute on chronic HFrEF (EF 20%) exacerbation 1. Acute exacerbation of chronic HFrEF (EF 20%) ? HFrEF, appears to worsened from 30 to 20% based on May 29 echo ? He was recently started on ARNI therapy (Entresto), they recommended holding Entresto due to hypotension, however his BP appears to be normalizing ? He improved back to baseline, per patient and his , who is also his stake driver, with IV Lasix 40 mg in ER ? Cardiology recommends internally planted defibrillator as an outpatient 2. Troponinemia, likely secondary to supply/demand mismatch from acute HFrEF exacerbation? ? Patient and his at bedside endorse resolution of his CP now that he is back to his baseline volume status 3. Essential hypertension ? Will continue to hold outpatient Entresto, as patient recently advised by his outpatient mobile application developer to hold said med for low BP 4. Diabetes type 2 with an A1c of 7.8 ? Will continue home insulin regimen 6. Past history of a hemmorhagic CVA, unknown vascular distribution ? Patient has expressive/receptive aphasia at baseline, as residual effect 7. Hyperlipidemia ? Continue home dose of simvastatin 40 mg po at bedtime 8. Atrial fibrillation, on Eliquis 2.5 mg bid at home, and can continue outpatient Discharge Plan Discharge Plan Patient Disposition: Home Discharge orders & Medications Prescriptions: Continued mupirocin 2 % ointment 1 applic TOP TID Qty: 30 0RF (DME) Light pressure salma hose Qty: 1 0RF Dose Instruction: As directed Rx Instructions: As directed (DME) Donut Pillow Qty: 1 0RF Dose Instruction: As directed Rx Instructions: As directed (DME) Medium to high pressure socks Qty: 1 0RF Dose Instruction: As directed Rx Instructions: As directed nystatin 100,000 unit/gram cream 1 applic topical TID 14 Days Qty: 150 1RF insulin regular human [Humulin R Regular U-100 Insuln] 100 unit/mL solution See Rx Instructions SUBCUT TIDAC Qty: 10 12RF Dose Instruction: if blood sugar is <150 inject 0 units, 151-200 inject 5 units, 201-250 inject 10 units; >250 inject 15 units SUBCUT TIDAC; Label Comments: spouse states has not needed for a long time. Rx Instructions: if blood sugar is <150 inject 0 units, 151-200 inject 5 units, 201-250 inject 10 units; >250 inject 15 units SUBCUT TIDAC; (DME) Syringes: Ultra Fine Insulin Syringe w/Needle 0 .Route .MEDSUPPLY Qty: 100 3RF Dose Instruction: As directed Rx Instructions: As directed zinc oxide 20 % ointment 1 applictn TOP BID PRN (Reason: skin irritation) Qty: 56.7 0RF albuterol sulfate [ProAir HFA] 90 mcg/actuation HFA aerosol inhaler See Rx Instructions .ROUTE .COMPLEX Qty: 8.5 3RF Dose Instruction: INHALE 2 PUFFS BY MOUTH EVERY 6 HOURS NEEDED FOR SHORTNESS OF BREATH Rx Instructions: INHALE 2 PUFFS BY MOUTH EVERY 6 HOURS NEEDED FOR SHORTNESS OF BREATH quetiapine 25 mg tablet See Rx Instructions .ROUTE .COMPLEX Qty: 90 3RF Dose Instruction: TAKE 1/4 TABLET BY MOUTH IN THE MORNING AND 1/2 TABLET AT NIGHT DAILY Rx Instructions: TAKE 1/4 TABLET BY MOUTH IN THE MORNING AND 1/2 TABLET AT NIGHT DAILY insulin lispro [Humalog KwikPen Insulin] 100 unit/mL insulin pen 5 unit SUBCUT DAILY Qty: 15 5RF Rx Instructions: at lunch triamcinolone acetonide 0.1 % cream See Rx Instructions .ROUTE .COMPLEX Qty: 30 0RF Dose Instruction: APPLY TOPICALLY TO THE AFFECTED AREA DAILY FOR ECZEMA Rx Instructions: APPLY TOPICALLY TO THE AFFECTED AREA DAILY FOR ECZEMA OneTouch Verio test strips Strip See Rx Instructions .ROUTE .COMPLEX Qty: 300 11RF Dose Instruction: USE TO TEST BLOOD SUGAR UP TO FOUR TIMES DAILY Rx Instructions: USE TO TEST BLOOD SUGAR UP TO FOUR TIMES DAILY pen needle, diabetic [BD Ultra-Fine Short Pen Needle] 31 gauge x 5/16 needle See Rx Instructions .ROUTE .COMPLEX Qty: 100 2RF Dose Instruction: USE TO INJECT INSULIN Rx Instructions: USE TO INJECT INSULIN simvastatin 40 mg tablet See Rx Instructions .ROUTE .COMPLEX Qty: 90 2RF Dose Instruction: TAKE 1 TABLET BY MOUTH DAILY AT BEDTIME Rx Instructions: TAKE 1 TABLET BY MOUTH DAILY AT BEDTIME fluoxetine 20 mg capsule See Rx Instructions .ROUTE .COMPLEX Qty: 90 0RF Dose Instruction: TAKE 1 CAPSULE BY MOUTH DAILY Rx Instructions: TAKE 1 CAPSULE BY MOUTH DAILY cyclobenzaprine 10 mg tablet See Rx Instructions .ROUTE .COMPLEX Qty: 90 0RF Dose Instruction: TAKE 1 TABLET BY MOUTH AT BEDTIME NEEDED FOR MUSCLE SPASM Rx Instructions: TAKE 1 TABLET BY MOUTH AT BEDTIME NEEDED FOR MUSCLE SPASM terbinafine HCl 1 % cream 1 applic topical BID Qty: 30 2RF hydrocodone-acetaminophen 5-325 mg tablet 1 tab PO Q6H Qty: 120 0RF finasteride 5 mg tablet See Rx Instructions .ROUTE .COMPLEX Qty: 90 0RF Dose Instruction: TAKE 1 TABLET(5 MG) BY MOUTH EVERY DAY Rx Instructions: TAKE 1 TABLET(5 MG) BY MOUTH EVERY DAY tamsulosin 0.4 mg capsule See Rx Instructions .ROUTE .COMPLEX Qty: 180 0RF Dose Instruction: TAKE 1 CAPSULE(0.4 MG) BY MOUTH TWICE DAILY Rx Instructions: TAKE 1 CAPSULE(0.4 MG) BY MOUTH TWICE DAILY metoprolol succinate 25 mg tablet extended release 24 hr 25 mg PO DAILY Qty: 90 3RF potassium chloride 10 mEq capsule, extended release See Rx Instructions .ROUTE .COMPLEX Qty: 180 0RF Dose Instruction: TAKE 1 CAPSULE BY MOUTH TWICE DAILY Rx Instructions: TAKE 1 CAPSULE BY MOUTH TWICE DAILY Lantus Solostar U-100 Insulin 100 unit/mL (3 mL) insulin pen See Rx Instructions .ROUTE .COMPLEX Qty: 30 3RF Dose Instruction: INJECT 40 UNITS UNDER THE SKIN IN THE MORNING AND 90 UNITS IN THE EVENING Rx Instructions: INJECT 40 UNITS UNDER THE SKIN IN THE MORNING AND 90 UNITS IN THE EVENING mupirocin 2 % ointment 1 applic topical BID Qty: 15 1RF polyethylene glycol 3350 17 gram powder in packet See Rx Instructions .ROUTE .COMPLEX Qty: 30 6RF Dose Instruction: MIX AND DRINK 1 PACKET BY MOUTH DAILY Rx Instructions: MIX AND DRINK 1 PACKET BY MOUTH DAILY aspirin [Adult Aspirin Regimen] 81 mg tablet,delayed release (DR/EC) 81 mg PO DAILY 0RF nitroglycerin 0.4 mg tablet, sublingual 0.4 mg sublingual Q5M PRN (Reason: Chest Pain) 0RF Rx Instructions: do not exceed 3 doses per episode torsemide 20 mg tablet 30 mg PO DAILY 0RF Eliquis 2.5 mg tablet See Rx Instructions .ROUTE .COMPLEX 0RF Dose Instruction: TAKE 1 TABLET BY MOUTH TWICE DAILY Rx Instructions: TAKE 2 tabs am and 1 tab pm fluconazole 50 mg tablet 50 mg PO DAILY Qty: 7 0RF sennosides [senna] 8.6 mg Tablet 25.8 mg PO Q12H 0RF docusate calcium 240 mg Capsule 240 mg PO QID 0RF Lancet: Device 1 st INJ QID 0RF magnesium citrate solution 150 ml PO BID PRN (Reason: constipation) Qty: 296 0RF Discontinued Entresto 24-26 mg tablet 1 tab PO BID 0RF Follow up/Referrals: Edil Lyons DO [Primary Care Provider] - Discharge Data Primary Care Provider: Edil Lyons Attending Provider: Shanon Santos VTE Deep Vein Thrombosis/Pulmonary Embolism Present on Admission: No
--- NOTE | 2021-06-02 17:06 | PC.NURSE ---
Discharge Note Patient A&O, VSS, RA, no complaints of pain/discomfort. Discharge packet reviewed with patient and , all questions/concerns addressed. PIV/TELE discontinued. All belongings packed and given to patient. Patient taken down via wheelchair to POV.
== END 2021-06-02 17:05 | disposition home or self-care (01) ==
LOC: ED 21:14 → AC 06-02 00:45
PROVIDERS: Admitting Provider Nurse Practitioner Family; Emergency Provider Emergency Medicine; PCP Family Medicine; Visit Provider Nurse Practitioner Family
DX: I50.23 Acute on chronic systolic (congestive) heart failure (principal); I11.0 Hypertensive heart disease with heart failure; R06.09 Other forms of dyspnea; I48.91 Unspecified atrial fibrillation; I42.9 Cardiomyopathy, unspecified; I69.320 Aphasia following cerebral infarction; E11.9 Type 2 diabetes mellitus without complications; Z79.4 Long term (current) use of insulin; I25.2 Old myocardial infarction; Z79.01 Long term (current) use of anticoagulants; Z87.891 Personal history of nicotine dependence; Z20.822 Contact with and (suspected) exposure to COVID-19
CPT/HCPCS: 36415; 71045; 80048; 80053; 81003; 82550; 82553; 82962; 83036; 83690; 83735; 83880; 84484; 85025; 85610; 87635; 93005; 93010; 96372; 96374; 96375; 99284; 99285; C9803; G0378; J1815; J1940

== ENCOUNTER → 2021-08-14 12:47 | Outpatient (CLI) | payer MEDICARE, MEDICAID, SELFPAY ==
[2021-06-02 00:48] VITALS: BMI 38.7
[2021-08-14 14:45] LABS: Hemoglobin A1C% w Est Avg Glu 7.7 % (4.0-6.0)
== END ==
PROVIDERS: PCP Family Medicine; Referring Provider Family Medicine; Visit Provider Family Medicine
DX: E11.42 Type 2 diabetes mellitus with diabetic polyneuropathy (principal); Z79.4 Long term (current) use of insulin
CPT/HCPCS: 36415; 83036

== ENCOUNTER → 2021-10-29 11:39 | Outpatient (CLI) | payer MEDICARE, MEDICAID, SELFPAY ==
[2021-06-02 00:48] VITALS: BMI 38.7
== END ==
PROVIDERS: PCP Family Medicine; Visit Provider Physician Assistant
DX: T14.8XXA Other injury of unspecified body region, initial encounter (principal)
CPT/HCPCS: 87070; 87075; 87077; 87147; 87185; 87186; 87205

== ENCOUNTER 2021-11-15 19:29 | Emergency (ER) | payer MEDICARE, MEDICAID, SELFPAY ==
[2021-06-02 00:48] VITALS: BMI 38.7
[2021-11-15] VITALS (9 sets, daily range): BP systolic 104–121; BP diastolic 56–59; PULSE 80–92; RESP 12–24; TEMP 36.1; O2SAT 69–98; BMI 39.4
--- NOTE | 2021-11-15 19:44 | DI.CT.S_ITS ---
PROCEDURE: CT CERVICAL SPINE WO CON INDICATIONS: fall with head injury TECHNIQUE: Noncontrast 3 mm thick sections acquired from the skull base to the T4 level. Sagittal and coronal reformats were then constructed. For radiation dose reduction, the following was used: automated exposure control, adjustment of mA and/or kV according to patient size. COMPARISON: [facility], CT, CT HEAD/BRAIN WO CON, 11/15/2021, 20:07. [facility], CT, CT CERVICAL SPINE WO CON, 08/04/2018, 10:35. FINDINGS: Image quality: This examination is somewhat limited by quantum mottle artifact. Bones: No fractures or dislocations. Visualized superior ribs are intact. Degenerative changes are seen throughout, with [id number] disc space narrowing at C3-C4, with moderate disc space narrowing at C4-C5. Moderate to severe disc space narrowing is seen at C5-C6 and C7-T1 and T1-T2. There is at least moderate disc space narrowing at C6-C7. Focal degenerative change is seen involving the C1-C2 interface anteriorly. Soft tissues: Prevertebral soft tissues are normal in thickness. No paravertebral hematomas. No apical pneumothoraces. IMPRESSION: Negative for acute fracture. Cervical spine degenerative changes are seen, which are worst inferiorly. Dictated by: Russell Casanova M.D. on 11/15/2021 at 19:39 Approved by: Russell Casanova M.D. on 11/15/2021 at 19:40
--- NOTE | 2021-11-15 20:20 | DI.CT.S_ITS ---
PROCEDURE: CT HEAD/BRAIN WO CON INDICATIONS: fall with head injury on Eliquis TECHNIQUE: Noncontrast 4.5 mm thick angled axial sections acquired from the foramen magnum to the vertex, with coronal and sagittal reformats. For radiation dose reduction, the following was used: automated exposure control, adjustment of mA and/or kV according to patient size. COMPARISON: [facility], CT, HEAD WITHOUT CONTRAST, 11/12/2016, 13:58. [facility], CT, HEAD WITHOUT CONTRAST, 12/08/2016, 11:17. [facility], CT, CT CERVICAL SPINE WO CON, 11/15/2021, 20:07. [facility], CT, HEAD WITHOUT CONTRAST, 06/20/2017, 18:06. FINDINGS: Image quality: Excellent. CSF spaces: Basal cisterns are patent. No extra-axial fluid collections. The ventricles are symmetric in size and shape. Brain: No intracranial bleeds or masses. There is cerebral volume loss for age, with resultant ventricular and sulcal prominence. There are periventricular and deep white matter chronic small vessel ischemic changes. Focal volume loss and encephalomalacia can again be seen involving the posterior aspect of the left cerebral hemisphere, which is relatively similar to 2017. There is intracranial internal carotid artery atherosclerosis. Left-sided dural thickening can be seen, as before. Skull and face: Left-sided craniotomy changes are seen. Calvarium and visualized facial bones appear intact, without suspicious lesions. Sinuses: Visualized sinuses and mastoids are clear. IMPRESSION: No acute intracranial hemorrhage is seen. No acute intracranial process is seen. Remote infarction seen involving the posterior aspect of the left cerebral hemisphere. Remote left craniotomy change. Stable dural thickening can be seen on the left, which is similar to 2017. Dictated by: Russell Casanova M.D. on 11/15/2021 at 19:36 Approved by: Russell Casanova M.D. on 11/15/2021 at 19:39
[2021-11-15 20:30] LABS: Add Manual Diff / Slide Review NO; Basophils Absolute Auto 100 /uL (0-100); Basophils Percent Auto 0.6 % (0-2); Eosinophils Absolute Auto 300 /uL (0-450); Eosinophils Percent Auto 2.4 % (2-4); Hematocrit 41.8 % (41-53); Hemoglobin 14.2 g/dL (13.5-17.5); Lymphocytes Absolute Auto 1700 /uL (1100-4500); Mean Corpuscular HGB Conc 33.9 % (30-36); Mean Corpuscular Hemoglobin 28.5 PG (26-34); Monocytes Absolute Auto 600 /uL (0-900); Neutrophils Absolute Auto 7700 /uL (1500-7000); Platelet Count 211 X10^3/uL (150-400); Red Blood Cell Count 4.98 X10^6/uL (4.5-5.9); Red Cell Distribution Width 15.2 % (11.6-14.8); White Blood Cell Count 10.3 X10^3/uL (4.5-11.0)
[2021-11-15 20:34] LABS: Alanine Aminotransferase 20 IU/L (<50); Albumin 4.1 g/dL (3.5-5.0); Albumin Globulin Ratio 1.3 (1.0-2.8); Alkaline Phosphatase 73 U/L (38-126); Aspartate Aminotransferase 31 IU/L (17-59); BUN Creatinine Ratio 25.5 (6-22); Bilirubin Total 0.7 mg/dL (0.2-1.3); Blood Urea Nitrogen 36 mg/dL (9-20); Calcium 8.7 mg/dL (8.4-10.2); Carbon Dioxide 24 mmol/L (22-32); Chloride 102 mmol/L (98-107); Creatine Kinase 134 U/L (55-170); Estimated Glomerular Filt Rate 53 mL/min (>60); Globulin 3.1 g/dL (1.7-4.1); Glucose 292 mg/dL (80-110); HEMOLYSIS 21 (0-50); Magnesium 2.2 mg/dL (1.6-2.3); Potassium 4.3 mmol/L (3.4-5.1); Sodium 138 mmol/L (137-145); Total Protein 7.2 g/dL (6.3-8.2)
[2021-11-15 20:46] LABS: NT-proBNP (BNP-Adult 18+) 506 pg/mL (<125); Troponin I 0.013 ng/mL (0.01-0.034)
[2021-11-15 20:49] LABS: CKMB % Relative Index 1.1 % (1.5-5.0); Creatine Kinase MB 1.53 ng/mL (<2.37)
--- NOTE | 2021-11-16 06:38 | ED_ITS ---
HPI - Fall General Chief Complaint: Fall Stated Complaint: hard fall, hit head,heart rate is elevated to 88 Time Seen by Provider: 11/15/21 19:40 Mode of arrival: Wheelchair History of Present Illness HPI Narrative: 71M former smoker with history of stroke and atrial fibrillation anticoagulation presents with a chief complaint of a fall from ground level due to unsteady gait with head injury. He denies loss of consciousness, nausea or vomiting. Given that he is on blood thinners he is activated as a modified trauma. He has very little other complaint and is largely as baseline otherwise. Because of his fall is unclear. He has some reproducible chest pain earlier that is now gone. Related Data Home Medications Medication Instructions Recorded Confirmed Lancet: Device 1 st INJ QID 02/23/19 10/29/21 docusate calcium 240 mg capsule 240 mg PO QID 02/23/19 10/29/21 sennosides 8.6 mg tablet (senna) 25.8 mg PO Q12H 02/23/19 10/29/21 aspirin 81 mg tablet,delayed 81 mg PO DAILY 06/07/19 10/29/21 release (Adult Aspirin Regimen) nitroglycerin 0.4 mg sublingual 0.4 mg SUBLINGUAL Q5M PRN 10/22/20 10/29/21 tablet torsemide 20 mg tablet 30 mg PO DAILY tab 10/22/20 10/29/21 Previous Rx's Medication Instructions Recorded insulin regular human 100 unit/mL See Rx Instructions SUBCUT TIDAC 11/05/17 injection solution (Humulin R #10 ml Regular U-100 Insulin) Syringes: Ultra Fine Insulin #100 each 02/14/18 Syringe w/Needle Light pressure salma hose #1 ea 07/05/18 Donut Pillow #1 ea 07/06/18 zinc oxide 20 % topical ointment 1 applictn TOP BID PRN #56.7 gram 07/07/18 Medium to high pressure socks #1 ea 09/06/18 magnesium citrate 150 ml PO BID PRN #296 ml 02/23/19 ProAir HFA 90 mcg/actuation See Rx Instructions .ROUTE 10/16/19 aerosol inhaler (albuterol sulfate) .COMPLEX #8.5 gram NS mupirocin 2 % topical ointment 1 applic TOP TID #30 gram 02/24/20 blood sugar diagnostic (OneTouch See Rx Instructions .ROUTE 02/17/21 Verio test strips) .COMPLEX #300 strip nystatin 100,000 unit/gram topical 1 applic TOPICAL TID 14 Days #150 g 03/29/21 cream terbinafine HCl 1 % topical cream 1 applic TOPICAL BID #30 g 04/09/21 metoprolol succinate 25 mg 25 mg PO DAILY #90 tab 05/01/21 tablet,extended release 24 hr fluconazole 50 mg tablet 50 mg PO DAILY #7 tab 05/09/21 mupirocin 2 % topical ointment 1 applic TOPICAL BID #15 g 05/14/21 polyethylene glycol 3350 17 gram See Rx Instructions .ROUTE 05/20/21 oral powder packet .COMPLEX #30 ea fluoxetine 20 mg capsule See Rx Instructions .ROUTE 06/26/21 .COMPLEX #90 cap nitrofurantoin macrocrystal 100 mg 100 mg PO BID #10 cap 07/15/21 capsule pen needle, diabetic 31 gauge x See Rx Instructions .ROUTE 07/16/21 5/16 (BD Ultra-Fine Short Pen .COMPLEX #100 ea Needle) finasteride 5 mg tablet See Rx Instructions .ROUTE 08/04/21 .COMPLEX #90 tab triamcinolone acetonide 0.1 % See Rx Instructions .ROUTE 08/07/21 topical cream .COMPLEX #30 g Lantus Solostar U-100 Insulin 100 See Rx Instructions .ROUTE 08/12/21 unit/mL (3 mL) subcutaneous pen .COMPLEX #30 ml NS (insulin glargine) tamsulosin 0.4 mg capsule See Rx Instructions .ROUTE 08/28/21 .COMPLEX #180 cap simvastatin 40 mg tablet See Rx Instructions .ROUTE 09/05/21 .COMPLEX #90 tab insulin lispro 100 unit/mL 5 unit (0.05 mL) SUBCUT DAILY #15 09/08/21 subcutaneous pen (Humalog KwikPen ml (U-100) Insulin) hydrocodone 5 mg-acetaminophen 325 1 tab PO Q6H #120 tab 09/19/21 mg tablet quetiapine 25 mg tablet See Rx Instructions .ROUTE 09/26/21 .COMPLEX #90 tab cyclobenzaprine 10 mg tablet See Rx Instructions .ROUTE 09/30/21 .COMPLEX #90 tab apixaban 2.5 mg tablet (Eliquis) 2.5 mg PO QPM #90 tab 05/02/22 apixaban 5 mg tablet (Eliquis) 5 mg PO QAM #90 tab 10/27/21 potassium chloride 10 mEq See Rx Instructions .ROUTE 11/03/21 capsule,extended release .COMPLEX #180 cap amoxicillin 500 mg-potassium 1 tab PO BID 7 Days #14 tab 11/15/21 clavulanate 125 mg tablet (Augmentin) Allergies Allergy/AdvReac Type Severity Reaction Status Date / Time triamcinolone Allergy Mild Hives Verified 11/15/21 19:51 Review of Systems Review of Systems Narrative: GENERAL: Denies chills, fatigue, malaise, fever, sweats. HEENT: Denies sinus pain, ear pain, sore throat, difficulty swallowing, d izziness. RESPIRATORY: Denies dyspnea, cough, wheezing, hemoptysis, sputum. CARDIOVASCULAR: See HPI GASTROINTESTINAL: Denies nausea, vomiting, abdominal pain, diarrhea, constipation, melena. : Denies dysuria, frequency, incontinence, hematuria, urinary retention. MUSCULOSKELETAL: denies weakness, joint pain, or bony pain SKIN: Denies rash, skin lesions, or other NEUROLOGIC: Denies weakness, headache, numbness, change in speech, confusion, seizures, incoordination. PSYCHIATRIC: No concerning psychosocial issues. 12 point review of systems is negative except for those stated above Patient History Medical History Acute CHF Atrial fibrillation (02/21/15) Benign prostatic hyperplasia BPH (benign prostatic hyperplasia) Cardiomyopathy (02/21/15) Cataracts, bilateral (07/26/17) CHF (congestive heart failure) Chronic neck pain Coronary artery disease Diabetes Hematuria (~2016) History of CVA (cerebrovascular accident) (07/12/16) Hyperlipidemia Hypertension Lower extremity edema Peripheral vascular disease PVD (peripheral vascular disease) Rash Renal failure Status post myocardial infarction (1994) Systolic CHF Surgical History History of cranioplasty (10/30/16) History of surgery on arm History of vasectomy S/P TURP (10/19/13) Status post craniectomy (07/12/16) Family History Mother Age: 91 Dementia Father Cancer Social History household members: spouse Smoking Status: Former smoker second hand exposure: No alcohol intake: never substance use type: does not use Smoking Status: Former smoker Substance Use Type: does not use Exam Narrative Exam Narrative: GENERAL: [71] year old patient appears stated age. Well-developed patient, in mild distress. At neurologic baseline per HEAD: Atraumatic. Normocephalic. No abrasion, contusion or evidence of depressed skull fracture EYES: Pupils equal round and reactive. Extraocular motions intact. No scleral icterus. No injection or drainage. ENT: Nose without bleeding, purulent drainage. Throat without erythema, tonsillar hypertrophy or exudate. Airway patent. NECK: Trachea midline. Non tender CARDIOVASCULAR: Regular rate and rhythm without murmurs, gallops, or rubs. RESPIRATORY: Clear to auscultation. Breath sounds equal bilaterally. No wheezes, rales, or rhonchi. GASTROINTESTINAL: Abdomen soft, non-tender, nondistended. EXTREMITIES: No edema or joint tenderness. BACK: Nontender without deformity or crepitance. No flank tenderness. NEURO: AOx3. Cranial nerves 2-12 grossly intact SKIN: No rash or erythema of visible areas Initial Vital Signs Initial Vital Signs: Vital Signs Pulse Oximetry 69 L 11/15/21 19:38 Course Orders Ordered: Discontinued Medications Sodium Chloride (Normal Saline 0.9%) 500 mls @ 1,000 mls/hr IV BOLUS ONE Stop: 11/15/21 20:52 Last Admin: 11/15/21 21:07 Dose: Not Given Documented by: DOM MDM - Fall Lab Data Result diagrams: 11/15/21 19:53 11/15/21 19:53 Labs: Lab Results 11/15/21 11/15/21 Range/Units 19:53 19:53 WBC 10.3 (4.5-11.0) X10^3/uL RBC 4.98 (4.5-5.9) X10^6/uL Hgb 14.2 (13.5-17.5) g/dL Hct 41.8 (41-53) % MCV 84.0 (80-100) fL MCH 28.5 (26-34) PG MCHC 33.9 (30-36) % RDW 15.2 H (11.6-14.8) % Plt Count 211 (150-400) X10^3/uL Neut % (Auto) 75.0 (50-75) % Lymph % (Auto) 16.0 L (25-40) % [place] % (Auto) 6.0 (3-14) % Eos % (Auto) 2.4 (2-4) % Baso % (Auto) 0.6 (0-2) % Neut # (Auto) 7700 H (0434-5352) /uL Lymph # (Auto) 1700 (0725-7497) /uL [place] # (Auto) 600 (0-900) /uL Eos # (Auto) 300 (0-450) /uL Baso # (Auto) 100 (0-100) /uL Sodium 138 (137-145) mmol/L Potassium 4.3 (3.4-5.1) mmol/L Chloride 102 (98-107) mmol/L Carbon Dioxide 24 (22-32) mmol/L BUN 36 H (9-20) mg/dL Creatinine 1.41 H (0.66-1.25) mg/dL Estimated GFR 53 L (>60) mL/min BUN/Creatinine Ratio 25.5 H (6-22) Glucose 292 H (80-110) mg/dL Calcium 8.7 (8.4-10.2) mg/dL Magnesium 2.2 (1.6-2.3) mg/dL Total Bilirubin 0.7 (0.2-1.3) mg/dL AST 31 (17-59) IU/L ALT 20 (<50) IU/L Alkaline Phosphatase 73 (38-126) U/L Total Creatine Kinase 134 (55-170) U/L CK-MB (CK-2) 1.53 (<2.37) ng/mL CK-MB (CK-2) Rel Index 1.1 L (1.5-5.0) % Troponin I 0.013 (0.01-0.034) ng/mL NT-Pro-B Natriuret Pep 506 H (<125) pg/mL Total Protein 7.2 (6.3-8.2) g/dL Albumin 4.1 (3.5-5.0) g/dL Globulin 3.1 (1.7-4.1) g/dL Albumin/Globulin Ratio 1.3 (1.0-2.8) Imaging Data CT scan - head: Radiologist's Impression: [address] [address] [address] Scan Report Signed Patient: Jackie Hurley Jr MR#: [id number] : 1950 Acct:[id number] Age/Sex: 71 / M Date of Service: 11/15/21 Loc: ED Accession Number: [id number] ?? Procedure: CT head/brain wo con Ordering Provider: Luis Caldwell D.O. PROCEDURE:? CT HEAD/BRAIN WO CON ? INDICATIONS:? fall with head injury on Eliquis ? TECHNIQUE:? Noncontrast 4.5 mm thick angled axial sections acquired from the foramen magnum to the vertex, with coronal and sagittal reformats.? For radiation dose reduction, the following was used:? automated exposure control, adjustment of mA and/or kV according to patient size.? ? COMPARISON:? [facility], CT, HEAD WITHOUT CONTRAST, 11/12/2016, 13:58.? [facility], CT, HEAD WITHOUT CONTRAST, 12/08/2016, 11:17.? [facility], CT, CT CERVICAL SPINE WO CON, 11/15/2021, 20:07.? [facility], CT, HEAD WITHOUT CONTRAST, 06/20/2017, 18:06. ? FINDINGS:? Image quality:? Excellent.? ? CSF spaces:? Basal cisterns are patent.? No extra-axial fluid collections.? The ventricles are symmetric in size and shape.? ? Brain:? No intracranial bleeds or masses.? There is cerebral volume loss for age, with resultant ventricular and sulcal prominence.? There are periventricular and deep white matter chronic small vessel ischemic changes.? Focal volume loss and encephalomalacia can again be seen involving the posterior aspect of the left cerebral hemisphere, which is relatively similar to 2017. There is intracranial internal carotid artery atherosclerosis.? Left-sided dural thickening can be seen, as before. ? Skull and face:? Left-sided craniotomy changes are seen.? Calvarium and visualized facial bones appear intact, without suspicious lesions.? ? Sinuses:? Visualized sinuses and mastoids are clear.? IMPRESSION:? No acute intracranial hemorrhage is seen.? ? No acute intracranial process is seen.? ? Remote infarction seen involving the posterior aspect of the left cerebral hemisphere. ? Remote left craniotomy change. ? Stable dural thickening can be seen on the left, which is similar to 2017. ? Dictated by: Russell Casanova M.D. on 11/15/2021 at 19:36 ? ? Approved by: Russell Casanova M.D. on 11/15/2021 at 19:39? Discharge Plan Departure Patient Disposition: Home Clinical Impression: Fall, Head injury, Feared condition not demonstrated Instructions: How to Prevent Falls Activity Restrictions/Additional Instructions: *You have been diagnosed with [fall with minor head injury. As we discussed the history and physical exam as well as labs and CT scan are reassuring. There is no evidence of significant abnormality, CT scan shows no bleeding or significant finding. *What to do: *Please continue to take your regular medications as directed. [ ] New medication prescriptions sent to your pharmacy: [ ] [ ] New medication written as a paper prescription [x ] No new medications given *Please follow up with your primary care provider in 2-3 days, call for an appointment. Let them know you were seen in the Emergency Department and that we ask that you be seen in follow up. We will electronically transmit a record of today's note if your PCP is in our system *If you do not have a primary care provider please contact the [facility] Resource line at [phone]. They will ask some questions about your medical history and help get you set up with a doctor in the community. *Return to Emergency Department if you should have any new, worsening or concerning symptoms, such as [fever greater than 101 F, shaking chills, worsening pain, persistent vomiting or other bothersome symptoms] Prescriptions: No Action mupirocin 2 % ointment 1 applic TOP TID Qty: 30 0RF (DME) Light pressure salma hose Qty: 1 0RF Dose Instruction: As directed Rx Instructions: As directed (DME) Donut Pillow Qty: 1 0RF Dose Instruction: As directed Rx Instructions: As directed (DME) Medium to high pressure socks Qty: 1 0RF Dose Instruction: As directed Rx Instructions: As directed nystatin 100,000 unit/gram cream 1 applic topical TID 14 Days Qty: 150 1RF insulin regular human [Humulin R Regular U-100 Insuln] 100 unit/mL solution See Rx Instructions SUBCUT TIDAC Qty: 10 12RF Dose Instruction: if blood sugar is <150 inject 0 units, 151-200 inject 5 units, 201-250 inject 10 units; >250 inject 15 units SUBCUT TIDAC; Label Comments: spouse states has not needed for a long time. Rx Instructions: if blood sugar is <150 inject 0 units, 151-200 inject 5 units, 201-250 inject 10 units; >250 inject 15 units SUBCUT TIDAC; (DME) Syringes: Ultra Fine Insulin Syringe w/Needle 0 .Route .MEDSUPPLY Qty: 100 3RF Dose Instruction: As directed Rx Instructions: As directed zinc oxide 20 % ointment 1 applictn TOP BID PRN (Reason: skin irritation) Qty: 56.7 0RF albuterol sulfate [ProAir HFA] 90 mcg/actuation HFA aerosol inhaler See Rx Instructions .ROUTE .COMPLEX Qty: 8.5 3RF Dose Instruction: INHALE 2 PUFFS BY MOUTH EVERY 6 HOURS NEEDED FOR SHORTNESS OF BREATH Rx Instructions: INHALE 2 PUFFS BY MOUTH EVERY 6 HOURS NEEDED FOR SHORTNESS OF BREATH OneTouch Verio test strips Strip See Rx Instructions .ROUTE .COMPLEX Qty: 300 11RF Dose Instruction: USE TO TEST BLOOD SUGAR UP TO FOUR TIMES DAILY Rx Instructions: USE TO TEST BLOOD SUGAR UP TO FOUR TIMES DAILY terbinafine HCl 1 % cream 1 applic topical BID Qty: 30 2RF metoprolol succinate 25 mg tablet extended release 24 hr 25 mg PO DAILY Qty: 90 3RF mupirocin 2 % ointment 1 applic topical BID Qty: 15 1RF polyethylene glycol 3350 17 gram powder in packet See Rx Instructions .ROUTE .COMPLEX Qty: 30 6RF Dose Instruction: MIX AND DRINK 1 PACKET BY MOUTH DAILY Rx Instructions: MIX AND DRINK 1 PACKET BY MOUTH DAILY fluoxetine 20 mg capsule See Rx Instructions .ROUTE .COMPLEX Qty: 90 3RF Dose Instruction: TAKE 1 CAPSULE BY MOUTH DAILY Rx Instructions: TAKE 1 CAPSULE BY MOUTH DAILY nitrofurantoin macrocrystal 100 mg capsule 100 mg PO BID Qty: 10 0RF Rx Instructions: must administer with a meal/food pen needle, diabetic [BD Ultra-Fine Short Pen Needle] 31 gauge x 5/16 needle See Rx Instructions .ROUTE .COMPLEX Qty: 100 2RF Dose Instruction: USE TO INJECT INSULIN Rx Instructions: USE TO INJECT INSULIN BID finasteride 5 mg tablet See Rx Instructions .ROUTE .COMPLEX Qty: 90 3RF Dose Instruction: TAKE 1 TABLET(5 MG) BY MOUTH EVERY DAY Rx Instructions: TAKE 1 TABLET(5 MG) BY MOUTH EVERY DAY triamcinolone acetonide 0.1 % cream See Rx Instructions .ROUTE .COMPLEX Qty: 30 0RF Dose Instruction: APPLY TOPICALLY TO THE AFFECTED AREA DAILY FOR ECZEMA Rx Instructions: APPLY TOPICALLY TO THE AFFECTED AREA DAILY FOR ECZEMA Lantus Solostar U-100 Insulin 100 unit/mL (3 mL) insulin pen See Rx Instructions .ROUTE .COMPLEX Qty: 30 11RF Dose Instruction: INJECT 40 UNITS UNDER THE SKIN IN THE MORNING AND 90 UNITS IN THE EVENING Rx Instructions: INJECT 40 UNITS UNDER THE SKIN IN THE MORNING AND 90 UNITS IN THE EVENING tamsulosin 0.4 mg capsule See Rx Instructions .ROUTE .COMPLEX Qty: 180 0RF Dose Instruction: TAKE 1 CAPSULE(0.4 MG) BY MOUTH TWICE DAILY Rx Instructions: TAKE 1 CAPSULE(0.4 MG) BY MOUTH TWICE DAILY simvastatin 40 mg tablet See Rx Instructions .ROUTE .COMPLEX Qty: 90 2RF Dose Instruction: TAKE 1 TABLET BY MOUTH DAILY AT BEDTIME Rx Instructions: TAKE 1 TABLET BY MOUTH DAILY AT BEDTIME insulin lispro [Humalog KwikPen Insulin] 100 unit/mL insulin pen 5 unit SUBCUT DAILY Qty: 15 5RF Rx Instructions: at lunch hydrocodone-acetaminophen 5-325 mg tablet 1 tab PO Q6H Qty: 120 0RF quetiapine 25 mg tablet See Rx Instructions .ROUTE .COMPLEX Qty: 90 3RF Dose Instruction: TAKE 1/4 TABLET IN THE MORNING AND 1/2 TABLET AT NIGHT Rx Instructions: TAKE 1/4 TABLET IN THE MORNING AND 1/2 TABLET AT NIGHT cyclobenzaprine 10 mg tablet See Rx Instructions .ROUTE .COMPLEX Qty: 90 3RF Dose Instruction: TAKE 1 TABLET BY MOUTH AT BEDTIME NEEDED FOR MUSCLE SPASM Rx Instructions: TAKE 1 TABLET BY MOUTH AT BEDTIME NEEDED FOR MUSCLE SPASM Eliquis 2.5 mg tablet 2.5 mg PO QPM Qty: 90 3RF Eliquis 5 mg tablet 5 mg PO QAM Qty: 90 3RF potassium chloride 10 mEq capsule, extended release See Rx Instructions .ROUTE .COMPLEX Qty: 180 0RF Dose Instruction: TAKE 1 CAPSULE BY MOUTH TWICE DAILY Rx Instructions: TAKE 1 CAPSULE BY MOUTH TWICE DAILY amoxicillin-pot clavulanate [Augmentin] 500-125 mg tablet 1 tab PO BID 7 Days Qty: 14 1RF aspirin [Adult Aspirin Regimen] 81 mg tablet,delayed release (DR/EC) 81 mg PO DAILY 0RF nitroglycerin 0.4 mg tablet, sublingual 0.4 mg sublingual Q5M PRN (Reason: Chest Pain) 0RF Rx Instructions: do not exceed 3 doses per episode torsemide 20 mg tablet 30 mg PO DAILY 0RF fluconazole 50 mg tablet 50 mg PO DAILY Qty: 7 0RF sennosides [senna] 8.6 mg Tablet 25.8 mg PO Q12H 0RF docusate calcium 240 mg Capsule 240 mg PO QID 0RF Lancet: Device 1 st INJ QID 0RF magnesium citrate solution 150 ml PO BID PRN (Reason: constipation) Qty: 296 0RF Referrals: Edil Lyons DO [Primary Care Provider] -
== END 2021-11-15 21:15 | disposition home or self-care (01) ==
PROVIDERS: Emergency Provider Emergency Medicine; Family Provider Family Medicine; PCP Family Medicine
DX: S09.90XA Unspecified injury of head, initial encounter (principal); R07.9 Chest pain, unspecified; W18.30XA Fall on same level, unspecified, initial encounter; Z79.01 Long term (current) use of anticoagulants
CPT/HCPCS: 70450; 72125; 80053; 82550; 82553; 83735; 83880; 84484; 85025; 93005; 93010; 99283

== ENCOUNTER → 2021-12-04 09:46 | Outpatient (CLI) | payer MEDICARE, MEDICAID, SELFPAY ==
[2021-06-02 00:48] VITALS: BMI 38.7
[2021-12-04 10:53] LABS: Add Manual Diff / Slide Review NO; Basophils Absolute Auto 0 /uL (0-100); Basophils Percent Auto 0.5 % (0-2); Eosinophils Absolute Auto 300 /uL (0-450); Hematocrit 42.6 % (41-53); Hemoglobin 14.2 g/dL (13.5-17.5); Lymphocytes Absolute Auto 2100 /uL (1100-4500); Lymphocytes Percent Auto 23.2 % (25-40); Mean Corpuscular HGB Conc 33.4 % (30-36); Mean Corpuscular Hemoglobin 28.1 PG (26-34); Mean Corpuscular Volume 84.3 fL (80-100); Monocytes Absolute Auto 800 /uL (0-900); Monocytes Percent Auto 8.6 % (3-14); Neutrophils Absolute Auto 5900 /uL (1500-7000); Neutrophils Percent Auto 64.7 % (50-75); Platelet Count 222 X10^3/uL (150-400); Red Blood Cell Count 5.05 X10^6/uL (4.5-5.9); Red Cell Distribution Width 14.9 % (11.6-14.8); White Blood Cell Count 9.1 X10^3/uL (4.5-11.0)
[2021-12-04 11:28] LABS: Hemoglobin A1C% w Est Avg Glu 7.4 % (4.0-6.0)
[2021-12-04 12:08] LABS: Alanine Aminotransferase 17 IU/L (<50); Albumin 4.4 g/dL (3.5-5.0); Albumin Globulin Ratio 1.5 (1.0-2.8); Alkaline Phosphatase 61 U/L (38-126); Aspartate Aminotransferase 22 IU/L (17-59); BUN Creatinine Ratio 23.8 (6-22); Bilirubin Total 1.2 mg/dL (0.2-1.3); Blood Urea Nitrogen 30 mg/dL (9-20); Calcium 9.1 mg/dL (8.4-10.2); Carbon Dioxide 26 mmol/L (22-32); Chloride 101 mmol/L (98-107); Cholesterol 165 mg/dL (140-199); Estimated Glomerular Filt Rate > 60 mL/min (>60); Glucose 114 mg/dL (80-110); HDL Cholesterol 42 mg/dL (40-60); HEMOLYSIS < 15 (0-50); LDL Cholesterol Calculated 103 mg/dL (<100); Potassium 4.5 mmol/L (3.4-5.1); Sodium 138 mmol/L (137-145); Total Protein 7.4 g/dL (6.3-8.2); Triglycerides 100 mg/dL (35-150)
== END ==
PROVIDERS: Family Provider Family Medicine; PCP Family Medicine; Referring Provider Family Medicine; Visit Provider Family Medicine
DX: E11.42 Type 2 diabetes mellitus with diabetic polyneuropathy (principal); I50.22 Chronic systolic (congestive) heart failure; I69.30 Unspecified sequelae of cerebral infarction; Z79.4 Long term (current) use of insulin
CPT/HCPCS: 36415; 80053; 80061; 83036; 85025

== ENCOUNTER → 2022-02-18 09:34 | Outpatient (CLI) | payer MEDICARE, MEDICAID, SELFPAY ==
[2021-06-02 00:48] VITALS: BMI 38.7
== END ==
PROVIDERS: Family Provider Family Medicine; PCP Family Medicine; Referring Provider Family Medicine; Visit Provider Family Medicine
DX: E11.42 Type 2 diabetes mellitus with diabetic polyneuropathy (principal); Z79.4 Long term (current) use of insulin
CPT/HCPCS: 36415; 83036

== ENCOUNTER 2022-02-27 11:21 | Emergency (ER) | payer MEDICARE, MEDICAID, SELFPAY ==
[2021-06-02 00:48] VITALS: BMI 38.7
[2022-02-27] VITALS (8 sets, daily range): BP systolic 88–122; BP diastolic 53–58; PULSE 46–90; RESP 17–23; TEMP 36.8; O2SAT 92–97
--- NOTE | 2022-02-27 11:36 | ED_ITS ---
HPI - General Adult General Chief complaint: Dizziness Stated complaint: Dizzy Time Seen by Provider: 02/27/22 11:26 Source: family and EMS Mode of arrival: EMS Limitations: other (History of stroke) History of Present Illness HPI narrative: Patient is a 71-year-old male. Has a history of a hemorrhagic stroke. Arrived by EMS for evaluation of an episode of dizziness. He is here with his . Patient does have a very difficult time communicating saying ?I do not know ?as answering most of his questions. This is because of his prior history of hemorrhagic stroke. Patient's provides most of the history. She states that this morning the patient had a episode where he seemed to be unsteady on his feet. He did not hit his head. Unsure if there were any other associated symptoms is the patient is not able to provide this history. Afebrile. He is on anticoagulation. Related Data Home Medications Medication Instructions Recorded Confirmed Lancet: Device 1 st INJ QID 02/23/19 02/20/22 docusate calcium 240 mg capsule 240 mg PO QID 02/23/19 02/20/22 sennosides 8.6 mg tablet (senna) 25.8 mg PO Q12H 02/23/19 02/20/22 aspirin 81 mg tablet,delayed 81 mg PO DAILY 06/07/19 02/20/22 release (Adult Aspirin Regimen) nitroglycerin 0.4 mg sublingual 0.4 mg sublingual Q5M PRN Chest 10/22/20 02/20/22 tablet Pain torsemide 20 mg tablet 30 mg PO DAILY 10/22/20 02/20/22 Previous Rx's Medication Instructions Recorded insulin regular human 100 unit/mL See Rx Instructions SUBCUT TIDAC 11/05/17 injection solution (Humulin R #10 mL Regular U-100 Insulin) Syringes: Ultra Fine Insulin #100 ea 02/14/18 Syringe w/Needle Light pressure salma hose #1 ea 07/05/18 Donut Pillow #1 ea 07/06/18 zinc oxide 20 % topical ointment 1 applictn topical BID PRN skin 07/07/18 irritation #56.7 grams Medium to high pressure socks #1 ea 09/06/18 magnesium citrate 150 ml PO BID PRN constipation 02/23/19 #296 mL ProAir HFA 90 mcg/actuation See Rx Instructions .Route 10/16/19 aerosol inhaler (albuterol sulfate) .COMPLEX #8.5 grams mupirocin 2 % topical ointment 1 applic topical TID #30 grams 02/24/20 blood sugar diagnostic (OneTouch See Rx Instructions .Route 02/17/21 Verio test strips) .COMPLEX #300 strips nystatin 100,000 unit/gram topical 1 applic topical TID 2 weeks #150 03/29/21 cream grams terbinafine HCl 1 % topical cream 1 applic topical BID #30 grams 04/09/21 fluconazole 50 mg tablet 50 mg PO DAILY #7 tabs 05/09/21 mupirocin 2 % topical ointment 1 applic topical BID apply 05/14/21 ointment to wounds on R leg #15 grams fluoxetine 20 mg capsule See Rx Instructions .Route 06/26/21 .COMPLEX #90 caps nitrofurantoin macrocrystal 100 mg 100 mg PO BID #10 caps 07/15/21 capsule finasteride 5 mg tablet See Rx Instructions .Route 08/04/21 .COMPLEX #90 tabs triamcinolone acetonide 0.1 % See Rx Instructions .Route 08/07/21 topical cream .COMPLEX #30 grams Lantus Solostar U-100 Insulin 100 See Rx Instructions .Route 08/12/21 unit/mL (3 mL) subcutaneous pen .COMPLEX #30 mL (insulin glargine) simvastatin 40 mg tablet See Rx Instructions .Route 09/05/21 .COMPLEX #90 tabs insulin lispro 100 unit/mL 5 unit (0.05 mL) SUBCUT DAILY #15 09/08/21 subcutaneous pen (Humalog KwikPen mL (U-100) Insulin) quetiapine 25 mg tablet See Rx Instructions .Route 09/26/21 .COMPLEX #90 tabs cyclobenzaprine 10 mg tablet See Rx Instructions .Route 09/30/21 .COMPLEX #90 tabs apixaban 2.5 mg tablet (Eliquis) 2.5 mg PO QPM #90 tabs 10/27/21 apixaban 5 mg tablet (Eliquis) 5 mg PO QAM #90 tabs 10/27/21 pen needle, diabetic 31 gauge x #100 ea 11/18/21 5/16 (BD Ultra-Fine Short Pen Needle) tamsulosin 0.4 mg capsule See Rx Instructions .Route 12/05/21 .COMPLEX #180 caps polyethylene glycol 3350 17 gram See Rx Instructions .Route 12/12/21 oral powder packet .COMPLEX #30 ea metoprolol succinate 25 mg 25 mg PO DAILY #90 tabs 01/08/22 tablet,extended release 24 hr potassium chloride 10 mEq See Rx Instructions .Route 02/02/22 capsule,extended release .COMPLEX #180 caps hydrocodone 5 mg-acetaminophen 325 1 tab PO Q6H #120 tabs 02/13/22 mg tablet meclizine 25 mg tablet 25 mg PO BID PRN dizziness #10 tabs 02/27/22 Allergies Allergy/AdvReac Type Severity Reaction Status Date / Time triamcinolone Allergy Mild Hives Verified 02/27/22 11:29 Review of Systems Review of Systems Narrative: Difficult to obtain because of the patient's history of stroke ROS Unobtainable: Unobtainable due to medical condition Neurologic Neurologic: Reports system reviewed and no additional complaints, except as documented Patient History Medical History Actinic keratoses Acute CHF Atrial fibrillation (02/21/15) Benign prostatic hyperplasia BPH (benign prostatic hyperplasia) Cardiomyopathy (02/21/15) Cataracts, bilateral (07/26/17) CHF (congestive heart failure) Chronic neck pain Coronary artery disease Diabetes Hematuria (~2016) History of CVA (cerebrovascular accident) (07/12/16) Hyperlipidemia Hypertension Lower extremity edema Peripheral vascular disease PVD (peripheral vascular disease) Rash Renal failure Status post myocardial infarction (1994) Suspicious nevus Systolic CHF Surgical History History of cranioplasty (10/30/16) History of surgery on arm History of vasectomy S/P TURP (10/19/13) Status post craniectomy (07/12/16) Family History Mother Age: 92 Dementia Father Cancer Social History household members: spouse Smoking Status: Former smoker second hand exposure: No alcohol intake: never substance use type: does not use Smoking Status: Former smoker alcohol intake frequency: holidays/special occasions only Substance Use Type: does not use Exam Initial Vital Signs Initial Vital Signs: Vital Signs Temperature 98.3 F 02/27/22 11:25 Pulse Rate 83 02/27/22 11:25 Respiratory Rate 20 02/27/22 11:25 Blood Pressure 122/58 L 02/27/22 11:25 Pulse Oximetry 95 02/27/22 11:25 Oxygen Delivery Method 02/27/22 11:25 Const General: cooperative and comfortable [facility] Head: other (Prior surgical scars in place) Resp Effort & Inspection: normal respiratory effort Auscultation: clear to auscultation bilaterally Cardio Rate: regular rate Rhythm: regular rhythm GI Inspection: normal to inspection Skin General: no rashes or lesions noted Neuro Other: Patient moves all 4 extremities Extrem Other: No gross deformities Course Orders Ordered: Discontinued Medications Meclizine HCl (Meclizine Hcl 12.5 Mg Tablet) 25 mg PO NOW ONE Stop: 02/27/22 12:56 Last Admin: 02/27/22 13:30 Dose: 25 mg Documented By: CONRADO Vital Signs Vital signs: Vital Signs - 8 hr 02/27/22 11:25 Temperature 98.3 F Pulse Rate 83 Respiratory Rate 20 Blood Pressure 122/58 L Pulse Oximetry 95 Oxygen Delivery Method Room Air Medical Decision Making Medical Records Medical records reviewed: Yes I reviewed the patient's medical records. Lab Data Lab results reviewed: Yes I reviewed the patient's lab results. Result diagrams: 02/27/22 11:45 02/27/22 11:45 Labs: Lab Results 02/27/22 02/27/22 02/27/22 Range/Units 11:45 11:45 11:45 WBC 9.2 (4.5-11.0) X10^3/uL RBC 5.36 (4.5-5.9) X10^6/uL Hgb 15.1 (13.5-17.5) g/dL Hct 45.3 (41-53) % MCV 84.4 (80-100) fL MCH 28.3 (26-34) PG MCHC 33.5 (30-36) % RDW 15.2 H (11.6-14.8) % Plt Count 234 (150-400) X10^3/uL Neut % (Auto) 71.4 (50-75) % Lymph % (Auto) 18.8 L (25-40) % [place] % (Auto) 7.0 (3-14) % Eos % (Auto) 2.2 (2-4) % Baso % (Auto) 0.6 (0-2) % Neut # (Auto) 6600 (9902-7473) /uL Lymph # (Auto) 1700 (5398-3922) /uL [place] # (Auto) 600 (0-900) /uL Eos # (Auto) 200 (0-450) /uL Baso # (Auto) 100 (0-100) /uL PT 13.9 H (10.1-12.7) SECONDS INR 1.2 (0.9-1.3) APTT 38 H (26-36) SECONDS Sodium 137 (137-145) mmol/L Potassium 4.1 (3.4-5.1) mmol/L Chloride 102 (98-107) mmol/L Carbon Dioxide 22 (22-32) mmol/L BUN 27 H (9-20) mg/dL Creatinine 1.28 H (0.66-1.25) mg/dL Estimated GFR 59 L (>60) mL/min BUN/Creatinine Ratio 21.1 (6-22) Glucose 193 H (80-110) mg/dL Calcium 8.6 (8.4-10.2) mg/dL Magnesium (1.6-2.3) mg/dL Total Creatine Kinase (55-170) U/L CK-MB (CK-2) CK-MB (CK-2) Rel Index Troponin I (0.01-0.034) ng/mL Lipase (23-300) U/L 02/27/22 02/27/22 Range/Units 11:45 11:45 WBC (4.5-11.0) X10^3/uL RBC (4.5-5.9) X10^6/uL Hgb (13.5-17.5) g/dL Hct (41-53) % MCV (80-100) fL MCH (26-34) PG MCHC (30-36) % RDW (11.6-14.8) % Plt Count (150-400) X10^3/uL Neut % (Auto) (50-75) % Lymph % (Auto) (25-40) % [place] % (Auto) (3-14) % Eos % (Auto) (2-4) % Baso % (Auto) (0-2) % Neut # (Auto) (9215-7957) /uL Lymph # (Auto) (0423-6717) /uL [place] # (Auto) (0-900) /uL Eos # (Auto) (0-450) /uL Baso # (Auto) (0-100) /uL PT (10.1-12.7) SECONDS INR (0.9-1.3) APTT (26-36) SECONDS Sodium (137-145) mmol/L Potassium (3.4-5.1) mmol/L Chloride (98-107) mmol/L Carbon Dioxide (22-32) mmol/L BUN (9-20) mg/dL Creatinine (0.66-1.25) mg/dL Estimated GFR (>60) mL/min BUN/Creatinine Ratio (6-22) Glucose (80-110) mg/dL Calcium (8.4-10.2) mg/dL Magnesium 2.1 (1.6-2.3) mg/dL Total Creatine Kinase 100 (55-170) U/L CK-MB (CK-2) TNP CK-MB (CK-2) Rel Index TNP Troponin I 0.026 (0.01-0.034) ng/mL Lipase 93 (23-300) U/L Imaging Data CT scan - head: Radiologist's Impression: [place] [address] CT Scan Report Signed Patient: Jackie Hurley Jr MR#: [id number] : 1950 Acct:[id number] Age/Sex: 71 / M Date of Service: 02/27/22 Loc: ED Accession Number: [id number] ?? Procedure: CT head/brain wo con Ordering Provider: Morteza Rojas D.O. PROCEDURE:? CT HEAD/BRAIN WO CON ? INDICATIONS:? DIZZYNESS ? TECHNIQUE:? Noncontrast 4.5 mm thick angled axial sections acquired from the foramen magnum to the vertex, with coronal and sagittal reformats.? For radiation dose reduction, the following was used:? automated exposure control, adjustment of mA and/or kV according to patient size.? ? COMPARISON:? [facility], CT, HEAD WITHOUT CONTRAST, 06/20/2017, 18:06.? [facility], CT, HEAD WITHOUT CONTRAST, 12/08/2016, 11:17.? [facility], CT, CT HEAD/BRAIN WO CON, 11/15/2021, 20:07. ? FINDINGS:? Image quality:? Excellent.? ? CSF spaces:? Basal cisterns are patent.? No extra-axial fluid collections.? The ventricles are symmetric in size and shape.? ? Brain:? No intracranial bleeds or masses.? There is cerebral volume loss for age, with resultant ventricular and sulcal prominence.? There are periventricular and deep white matter chronic small vessel ischemic changes.? There is a remote, stable infarction involving the posterior aspect the left cerebral hemisphere. ? There is intracranial internal carotid artery atherosclerosis.? ? Mild dural thickening is again seen on the left laterally, as on series 4, image 23, which is stable compared to prior. ? Skull and face:? Left craniotomy change can be seen.? Calvarium and visualized facial bones appear intact, without suspicious lesions.? ? Sinuses:? Visualized sinuses and mastoids are clear.? IMPRESSION:? ? No imaging explanation is found for this patient's presenting symptoms.? ? Stable examination demonstrating a remote infarct involving the posterior aspect of the left cerebral hemisphere.? ? Remote left craniotomy change. ? Stable left-sided dural thickening.? ? Dictated by: Russell Casanova M.D. on 02/27/2022 at 10:59 ? ? Approved by: Russell Casanova M.D. on 02/27/2022 at 11:01?? ECG Data Attestation: I personally reviewed and interpreted this ECG as follows: Interpretation: Atrial fibrillation Ventricular rate 84 Left bundle branch block Left axis deviation No ST T wave changes MDM Narrative Medical decision making narrative: Very difficult to obtain history from the patient given his prior hemorrhagic stroke history. He seems to be at baseline per his who is at bedside. From what I could ascertain the patient is here because he had what appeared to be a dizziness episode earlier today. With talking with the patient and some interpretation with his body language from his he seems to be improved after the meclizine. His head CT shows no acute pathology. Patient was then able to ambulate around the emergency department at baseline. Will discharge patient home as he wants to go home. The patient and were given return precautions. Patient's expressed understanding and agreement. Discharge Plan Departure Patient Disposition: Home Clinical Impression: Dizziness Instructions: Dizziness, Nonvertigo Activity Restrictions/Additional Instructions: Continue to take all of your medications as directed. Contact his primary doctor for a follow-up. Return to the emergency department for any new or worsening symptoms. Prescriptions: New meclizine 25 mg tablet 25 mg PO BID PRN (Reason: dizziness) Qty: 10 0RF No Action mupirocin 2 % ointment 1 applic TOP TID Qty: 30 0RF (DME) Light pressure salma hose Qty: 1 0RF Dose Instruction: As directed Rx Instructions: As directed (DME) Donut Pillow Qty: 1 0RF Dose Instruction: As directed Rx Instructions: As directed (DME) Medium to high pressure socks Qty: 1 0RF Dose Instruction: As directed Rx Instructions: As directed nystatin 100,000 unit/gram cream 1 applic topical TID 14 Days Qty: 150 1RF insulin regular human [Humulin R Regular U-100 Insuln] 100 unit/mL solution See Rx Instructions SUBCUT TIDAC Qty: 10 12RF Dose Instruction: if blood sugar is <150 inject 0 units, 151-200 inject 5 units, 201-250 inject 10 units; >250 inject 15 units SUBCUT TIDAC; Label Comments: spouse states has not needed for a long time. Rx Instructions: if blood sugar is <150 inject 0 units, 151-200 inject 5 units, 201-250 in ject 10 units; >250 inject 15 units SUBCUT TIDAC; (DME) Syringes: Ultra Fine Insulin Syringe w/Needle 0 .Route .MEDSUPPLY Qty: 100 3RF Dose Instruction: As directed Rx Instructions: As directed zinc oxide 20 % ointment 1 applictn TOP BID PRN (Reason: skin irritation) Qty: 56.7 0RF albuterol sulfate [ProAir HFA] 90 mcg/actuation HFA aerosol inhaler See Rx Instructions .ROUTE .COMPLEX Qty: 8.5 3RF Dose Instruction: INHALE 2 PUFFS BY MOUTH EVERY 6 HOURS NEEDED FOR SHORTNESS OF BREATH Rx Instructions: INHALE 2 PUFFS BY MOUTH EVERY 6 HOURS NEEDED FOR SHORTNESS OF BREATH OneTouch Verio test strips Strip See Rx Instructions .ROUTE .COMPLEX Qty: 300 11RF Dose Instruction: USE TO TEST BLOOD SUGAR UP TO FOUR TIMES DAILY Rx Instructions: USE TO TEST BLOOD SUGAR UP TO FOUR TIMES DAILY terbinafine HCl 1 % cream 1 applic topical BID Qty: 30 2RF mupirocin 2 % ointment 1 applic topical BID Qty: 15 1RF fluoxetine 20 mg capsule See Rx Instructions .ROUTE .COMPLEX Qty: 90 3RF Dose Instruction: TAKE 1 CAPSULE BY MOUTH DAILY Rx Instructions: TAKE 1 CAPSULE BY MOUTH DAILY nitrofurantoin macrocrystal 100 mg capsule 100 mg PO BID Qty: 10 0RF Rx Instructions: must administer with a meal/food finasteride 5 mg tablet See Rx Instructions .ROUTE .COMPLEX Qty: 90 3RF Dose Instruction: TAKE 1 TABLET(5 MG) BY MOUTH EVERY DAY Rx Instructions: TAKE 1 TABLET(5 MG) BY MOUTH EVERY DAY triamcinolone acetonide 0.1 % cream See Rx Instructions .ROUTE .COMPLEX Qty: 30 0RF Dose Instruction: APPLY TOPICALLY TO THE AFFECTED AREA DAILY FOR ECZEMA Rx Instructions: APPLY TOPICALLY TO THE AFFECTED AREA DAILY FOR ECZEMA Lantus Solostar U-100 Insulin 100 unit/mL (3 mL) insulin pen See Rx Instructions .ROUTE .COMPLEX Qty: 30 11RF Dose Instruction: INJECT 40 UNITS UNDER THE SKIN IN THE MORNING AND 90 UNITS IN THE EVENING Rx Instructions: INJECT 40 UNITS UNDER THE SKIN IN THE MORNING AND 90 UNITS IN THE EVENING simvastatin 40 mg tablet See Rx Instructions .ROUTE .COMPLEX Qty: 90 2RF Dose Instruction: TAKE 1 TABLET BY MOUTH DAILY AT BEDTIME Rx Instructions: TAKE 1 TABLET BY MOUTH DAILY AT BEDTIME insulin lispro [Humalog KwikPen Insulin] 100 unit/mL insulin pen 5 unit SUBCUT DAILY Qty: 15 5RF Rx Instructions: at lunch quetiapine 25 mg tablet See Rx Instructions .ROUTE .COMPLEX Qty: 90 3RF Dose Instruction: TAKE 1/4 TABLET IN THE MORNING AND 1/2 TABLET AT NIGHT Rx Instructions: TAKE 1/4 TABLET IN THE MORNING AND 1/2 TABLET AT NIGHT cyclobenzaprine 10 mg tablet See Rx Instructions .ROUTE .COMPLEX Qty: 90 3RF Dose Instruction: TAKE 1 TABLET BY MOUTH AT BEDTIME NEEDED FOR MUSCLE SPASM Rx Instructions: TAKE 1 TABLET BY MOUTH AT BEDTIME NEEDED FOR MUSCLE SPASM Eliquis 2.5 mg tablet 2.5 mg PO QPM Qty: 90 3RF Eliquis 5 mg tablet 5 mg PO QAM Qty: 90 3RF (DME) pen needle, diabetic [BD Ultra-Fine Short Pen Needle] 31 gauge x 5/16 needle See Rx Instructions .ROUTE .COMPLEX Qty: 100 1RF Dose Instruction: USE TO INJECT INSULIN TWICE DAILY Rx Instructions: USE TO INJECT INSULIN TWICE DAILY tamsulosin 0.4 mg capsule See Rx Instructions .ROUTE .COMPLEX Qty: 180 3RF Dose Instruction: TAKE 1 CAPSULE(0.4 MG) BY MOUTH TWICE DAILY Rx Instructions: TAKE 1 CAPSULE(0.4 MG) BY MOUTH TWICE DAILY polyethylene glycol 3350 17 gram powder in packet See Rx Instructions .ROUTE .COMPLEX Qty: 30 6RF Dose Instruction: MIX AND DRINK 1 PACKET BY MOUTH DAILY Rx Instructions: MIX AND DRINK 1 PACKET BY MOUTH DAILY metoprolol succinate 25 mg tablet extended release 24 hr 25 mg PO DAILY Qty: 90 3RF potassium chloride 10 mEq capsule, extended release See Rx Instructions .ROUTE .COMPLEX Qty: 180 3RF Dose Instruction: TAKE 1 CAPSULE BY MOUTH TWICE DAILY Rx Instructions: TAKE 1 CAPSULE BY MOUTH TWICE DAILY hydrocodone-acetaminophen 5-325 mg tablet 1 tab PO Q6H Qty: 120 0RF aspirin [Adult Aspirin Regimen] 81 mg tablet,delayed release (DR/EC) 81 mg PO DAILY nitroglycerin 0.4 mg tablet, sublingual 0.4 mg sublingual Q5M PRN (Reason: Chest Pain) Rx Instructions: do not exceed 3 doses per episode torsemide 20 mg tablet 30 mg PO DAILY fluconazole 50 mg tablet 50 mg PO DAILY Qty: 7 0RF sennosides [senna] 8.6 mg Tablet 25.8 mg PO Q12H docusate calcium 240 mg Capsule 240 mg PO QID Lancet: Device 1 st INJ QID magnesium citrate solution 150 ml PO BID PRN (Reason: constipation) Qty: 296 0RF Referrals: Lance Lyons DO [Primary Care Provider] - Visit Report Forms: Patient Portal/API
--- NOTE | 2022-02-27 11:42 | DI.CT.S_ITS ---
PROCEDURE: CT HEAD/BRAIN WO CON INDICATIONS: DIZZYNESS TECHNIQUE: Noncontrast 4.5 mm thick angled axial sections acquired from the foramen magnum to the vertex, with coronal and sagittal reformats. For radiation dose reduction, the following was used: automated exposure control, adjustment of mA and/or kV according to patient size. COMPARISON: [facility], CT, HEAD WITHOUT CONTRAST, 06/20/2017, 18:06. [facility], CT, HEAD WITHOUT CONTRAST, 12/08/2016, 11:17. [facility], CT, CT HEAD/BRAIN WO CON, 11/15/2021, 20:07. FINDINGS: Image quality: Excellent. CSF spaces: Basal cisterns are patent. No extra-axial fluid collections. The ventricles are symmetric in size and shape. Brain: No intracranial bleeds or masses. There is cerebral volume loss for age, with resultant ventricular and sulcal prominence. There are periventricular and deep white matter chronic small vessel ischemic changes. There is a remote, stable infarction involving the posterior aspect the left cerebral hemisphere. There is intracranial internal carotid artery atherosclerosis. Mild dural thickening is again seen on the left laterally, as on series 4, image 23, which is stable compared to prior. Skull and face: Left craniotomy change can be seen. Calvarium and visualized facial bones appear intact, without suspicious lesions. Sinuses: Visualized sinuses and mastoids are clear. IMPRESSION: No imaging explanation is found for this patient's presenting symptoms. Stable examination demonstrating a remote infarct involving the posterior aspect of the left cerebral hemisphere. Remote left craniotomy change. Stable left-sided dural thickening. Dictated by: Russell Casanova M.D. on 02/27/2022 at 10:59 Approved by: Russell Casanova M.D. on 02/27/2022 at 11:01
[2022-02-27 11:53] LABS: Add Manual Diff / Slide Review NO; Basophils Absolute Auto 100 /uL (0-100); Basophils Percent Auto 0.6 % (0-2); Eosinophils Absolute Auto 200 /uL (0-450); Eosinophils Percent Auto 2.2 % (2-4); Hematocrit 45.3 % (41-53); Hemoglobin 15.1 g/dL (13.5-17.5); Lymphocytes Absolute Auto 1700 /uL (1100-4500); Lymphocytes Percent Auto 18.8 % (25-40); Mean Corpuscular HGB Conc 33.5 % (30-36); Mean Corpuscular Hemoglobin 28.3 PG (26-34); Mean Corpuscular Volume 84.4 fL (80-100); Monocytes Absolute Auto 600 /uL (0-900); Neutrophils Absolute Auto 6600 /uL (1500-7000); Neutrophils Percent Auto 71.4 % (50-75); Platelet Count 234 X10^3/uL (150-400); Red Blood Cell Count 5.36 X10^6/uL (4.5-5.9); Red Cell Distribution Width 15.2 % (11.6-14.8); White Blood Cell Count 9.2 X10^3/uL (4.5-11.0)
[2022-02-27 12:00] LABS: INR 1.2 (0.9-1.3); Prothrombin Time 13.9 SECONDS (10.1-12.7)
[2022-02-27 12:03] LABS: PTT Partial Thromboplastin Tim 38 SECONDS (26-36)
[2022-02-27 12:04] LABS: Creatine Kinase 100 U/L (55-170)
[2022-02-27 12:05] LABS: BUN Creatinine Ratio 21.1 (6-22); Blood Urea Nitrogen 27 mg/dL (9-20); Calcium 8.6 mg/dL (8.4-10.2); Carbon Dioxide 22 mmol/L (22-32); Chloride 102 mmol/L (98-107); Estimated Glomerular Filt Rate 59 mL/min (>60); Glucose 193 mg/dL (80-110); HEMOLYSIS < 15 (0-50); Lipase 93 U/L (23-300); Magnesium 2.1 mg/dL (1.6-2.3); Potassium 4.1 mmol/L (3.4-5.1); Sodium 137 mmol/L (137-145)
[2022-02-27 12:17] LABS: Troponin I 0.026 ng/mL (0.01-0.034)
[2022-02-27] MEDS: MECLIZINE HCL 12.5 MG TABLET 25 MG PO (13:30)
== END 2022-02-27 14:44 | disposition home or self-care (01) ==
PROVIDERS: Emergency Provider Emergency Medicine; Family Provider Family Medicine; PCP Family Medicine
DX: R42 Dizziness and giddiness (principal)
CPT/HCPCS: 36415; 70450; 80048; 82550; 83690; 83735; 84484; 85025; 85610; 85730; 93005; 99284

== ENCOUNTER 2022-04-07 12:36 | Emergency (ER) | payer MEDICARE, MEDICAID, SELFPAY ==
[2021-06-02 00:48] VITALS: BMI 38.7
[2022-04-07] VITALS (14 sets, daily range): BP systolic 110–152; BP diastolic 58–84; PULSE 67–78; RESP 16–23; TEMP 36.2–36.9; O2SAT 92–99; BMI 37.1
--- NOTE | 2022-04-07 12:55 | DI.RAD.S_ITS ---
PROCEDURE: XR CHEST 1V INDICATIONS: chest pain TECHNIQUE: One view of the chest was acquired. COMPARISON: [facility], CR, XR CHEST 1V, 06/01/2021, 21:25. FINDINGS: Surgical changes and devices: None. Lungs and pleura: Lungs are clear. No pleural effusions or pneumothorax. Mediastinum: Mediastinal contours appear normal. Heart size is normal. Bones and chest wall: No suspicious bony lesions. Overlying soft tissues appear unremarkable. IMPRESSION: No acute cardiopulmonary findings Approved by: Jaiden Jasso M.D. on 04/07/2022 at 12:45
[2022-04-07 13:22] LABS: Add Manual Diff / Slide Review NO; Basophils Absolute Auto 100 /uL (0-100); Basophils Percent Auto 0.7 % (0-2); Eosinophils Absolute Auto 400 /uL (0-450); Eosinophils Percent Auto 4.2 % (2-4); Hematocrit 41.3 % (41-53); Hemoglobin 14.1 g/dL (13.5-17.5); Lymphocytes Absolute Auto 2200 /uL (1100-4500); Lymphocytes Percent Auto 25.9 % (25-40); Mean Corpuscular HGB Conc 34.1 % (30-36); Mean Corpuscular Hemoglobin 28.8 PG (26-34); Mean Corpuscular Volume 84.4 fL (80-100); Monocytes Absolute Auto 700 /uL (0-900); Monocytes Percent Auto 7.6 % (3-14); Neutrophils Absolute Auto 5300 /uL (1500-7000); Neutrophils Percent Auto 61.6 % (50-75); Platelet Count 228 X10^3/uL (150-400); Red Blood Cell Count 4.89 X10^6/uL (4.5-5.9); White Blood Cell Count 8.5 X10^3/uL (4.5-11.0)
[2022-04-07 13:25] LABS: Alanine Aminotransferase 18 IU/L (<50); Albumin 4.1 g/dL (3.5-5.0); Albumin Globulin Ratio 1.2 (1.0-2.8); Alkaline Phosphatase 60 U/L (38-126); Aspartate Aminotransferase 27 IU/L (17-59); BUN Creatinine Ratio 18.5 (6-22); Blood Urea Nitrogen 24 mg/dL (9-20); Calcium 9.2 mg/dL (8.4-10.2); Carbon Dioxide 25 mmol/L (22-32); Chloride 103 mmol/L (98-107); Creatine Kinase 82 U/L (55-170); Estimated Glomerular Filt Rate 58 mL/min (>60); Globulin 3.4 g/dL (1.7-4.1); Glucose 106 mg/dL (80-110); HEMOLYSIS 16 (0-50); Lipase 94 U/L (23-300); Magnesium 2.3 mg/dL (1.6-2.3); Potassium 4.9 mmol/L (3.4-5.1); Sodium 141 mmol/L (137-145); Total Protein 7.5 g/dL (6.3-8.2)
[2022-04-07 13:36] LABS: Troponin I 0.017 ng/mL (0.01-0.034)
--- NOTE | 2022-04-07 14:16 | ED_ITS ---
HPI - General Adult General Chief complaint: Syncope Stated complaint: BP LOW 71/49 hx of AFIB Time Seen by Provider: 04/07/22 14:05 Source: family Mode of arrival: Wheelchair Limitations: no limitations History of Present Illness HPI narrative: This is a 71-year-old male with history of hemorrhagic stroke with significant difficulty communicating. Patient indicates he would like to go home his family indicates that he has had low blood pressures at home for several weeks patient had a possible syncopal episode yesterday although they describe him as taking a bath was sitting on the toilet afterwards but was very confused did not know what was going on and his blood pressure was very low in the 70s over 50s systolic. His states she gave 2 nitro sublingual and aspirin. A week ago he had an episode where he started to fall he was standing his son grabbed him and lowered him to the ground he did by description sounds like he actually lost consciousness but they state he does not normally fall. Patient has not indicated any chest pain, shortness of breath, no nausea or vomiting normal stools without diarrhea or black or bloody stools. Normal urination, no new swelling in his extremities. states that they were instructed to hold his metoprolol until his blood pressure improved yesterday they had 111/163 and 116/61 so she gave him his a.m. daily dose and his primary care has instructed them to decrease his torsemide from 3 times a day and has been weaning down to 1 times a day as of 4 days ago. They have also been taking his insulin and dropping it as he is had occasional lows he is getting 40 units in the morning was getting 80 units in the evening but is now getting 40 units in the morning and 58 units in the evening with continuing to decrease. Patient has minimal input into the conversation but was walking back to the room from the bathroom when I encountered him initially. He tolerated this well. Has not had any other medication changes according to his family. Related Data Home Medications Medication Instructions Recorded Confirmed Lancet: Device 1 st INJ QID 02/23/19 02/20/22 docusate calcium 240 mg capsule 240 mg PO QID 02/23/19 02/20/22 sennosides 8.6 mg tablet (senna) 25.8 mg PO Q12H 02/23/19 02/20/22 aspirin 81 mg tablet,delayed 81 mg PO DAILY 06/07/19 02/20/22 release (Adult Aspirin Regimen) Previous Rx's Medication Instructions Recorded insulin regular human 100 unit/mL See Rx Instructions SUBCUT TIDAC 11/05/17 injection solution (Humulin R #10 mL Regular U-100 Insulin) Syringes: Ultra Fine Insulin #100 ea 02/14/18 Syringe w/Needle Light pressure salma hose #1 ea 07/05/18 Donut Pillow #1 ea 07/06/18 zinc oxide 20 % topical ointment 1 applictn topical BID PRN skin 07/07/18 irritation #56.7 grams Medium to high pressure socks #1 ea 09/06/18 magnesium citrate 150 ml PO BID PRN constipation 02/23/19 #296 mL ProAir HFA 90 mcg/actuation See Rx Instructions .Route 10/16/19 aerosol inhaler (albuterol sulfate) .COMPLEX #8.5 grams mupirocin 2 % topical ointment 1 applic topical TID #30 grams 02/24/20 blood sugar diagnostic (OneTouch See Rx Instructions .Route 02/17/21 Verio test strips) .COMPLEX #300 strips nystatin 100,000 unit/gram topical 1 applic topical TID 2 weeks #150 03/29/21 cream grams terbinafine HCl 1 % topical cream 1 applic topical BID #30 grams 04/09/21 fluconazole 50 mg tablet 50 mg PO DAILY #7 tabs 05/09/21 mupirocin 2 % topical ointment 1 applic topical BID apply 05/14/21 ointment to wounds on R leg #15 grams finasteride 5 mg tablet See Rx Instructions .Route 08/04/21 .COMPLEX #90 tabs triamcinolone acetonide 0.1 % See Rx Instructions .Route 08/07/21 topical cream .COMPLEX #30 grams Lantus Solostar U-100 Insulin 100 See Rx Instructions .Route 08/12/21 unit/mL (3 mL) subcutaneous pen .COMPLEX #30 mL (insulin glargine) simvastatin 40 mg tablet See Rx Instructions .Route 09/05/21 .COMPLEX #90 tabs insulin lispro 100 unit/mL 5 unit (0.05 mL) SUBCUT DAILY #15 09/08/21 subcutaneous pen (Humalog KwikPen mL (U-100) Insulin) quetiapine 25 mg tablet See Rx Instructions .Route 09/26/21 .COMPLEX #90 tabs cyclobenzaprine 10 mg tablet See Rx Instructions .Route 09/30/21 .COMPLEX #90 tabs apixaban 2.5 mg tablet (Eliquis) 2.5 mg PO QPM #90 tabs 10/27/21 apixaban 5 mg tablet (Eliquis) 5 mg PO QAM #90 tabs 10/27/21 tamsulosin 0.4 mg capsule See Rx Instructions .Route 12/05/21 .COMPLEX #180 caps polyethylene glycol 3350 17 gram See Rx Instructions .Route 12/12/21 oral powder packet .COMPLEX #30 ea metoprolol succinate 25 mg 25 mg PO DAILY #90 tabs 01/08/22 tablet,extended release 24 hr potassium chloride 10 mEq See Rx Instructions .Route 02/02/22 capsule,extended release .COMPLEX #180 caps meclizine 25 mg tablet 25 mg PO BID PRN dizziness #10 tabs 02/27/22 pen needle, diabetic 31 gauge x #100 ea 03/03/22 5/16 (BD Ultra-Fine Short Pen Needle) torsemide 20 mg tablet See Rx Instructions .Route 03/09/22 .COMPLEX #362 tabs nitrofurantoin macrocrystal 100 mg 100 mg PO BID #10 caps 03/16/22 capsule fluoxetine 20 mg capsule See Rx Instructions .Route 03/26/22 .COMPLEX #90 caps hydrocodone 5 mg-acetaminophen 325 1 tab PO Q6H #120 tabs 04/02/22 mg tablet nitroglycerin 0.4 mg sublingual 0.4 mg sublingual Q5M PRN Chest 04/06/22 tablet Pain #30 tabs Allergies Allergy/AdvReac Type Severity Reaction Status Date / Time triamcinolone Allergy Mild Hives Verified 02/27/22 11:29 Review of Systems Review of Systems ROS Unobtainable: All systems reviewed & are unremarkable except as noted in HPI and below Patient History Medical History Actinic keratoses Acute CHF Atrial fibrillation (02/21/15) Benign prostatic hyperplasia BPH (benign prostatic hyperplasia) Cardiomyopathy (02/21/15) Cataracts, bilateral (07/26/17) CHF (congestive heart failure) Chronic neck pain Coronary artery disease Diabetes Hematuria (~2016) History of CVA (cerebrovascular accident) (07/12/16) Hyperlipidemia Hypertension Hypotension Lower extremity edema Peripheral vascular disease PVD (peripheral vascular disease) Rash Renal failure Status post myocardial infarction (1994) Suspicious nevus Systolic CHF Surgical History History of cranioplasty (10/30/16) History of surgery on arm History of vasectomy S/P TURP (10/19/13) Status post craniectomy (07/12/16) Family History Mother Age: 92 Dementia Father Cancer Social History household members: spouse Smoking Status: Former smoker second hand exposure: No alcohol intake: never substance use type: does not use Smoking Status: Former smoker alcohol intake frequency: holidays/special occasions only Substance Use Type: does not use Exam Narrative Exam Narrative: GEN: well nourished, male alert, patient has deformity of the left Wednesday area consistent with prior craniotomy HEENT: Atraumatic, pupils are equal round reactive to light, extraocular movements are intact, nares are clear, TMs are clear with no fluid, there is no conjunctival pallor. Throat is clear without any exudates, erythema, tonsillar enlargement or uvular deviation HEART: Regular rate and rhythm without murmur, clicks, rubs. Pulses equal bilateral upper extremities LUNGS:Lungs clear to auscultation, no wheezes, rales, crackles, chest moves symmetrically ABD:bowel sounds normal, soft, non-tender, no guarding, rebound, rigidity, no masses noted, no hepatosplenomegaly :No CVA tenderness MSCL: Non-tender, no muscle atrophy, muscles strength 5/5 upper and lower extremities, full range of motion, normal gait NEURO:CN 2-12 intact, sensation normal SKIN: Patient has small ulceration on the right leg. Initial Vital Signs Initial Vital Signs: Vital Signs Temperature 97.2 F L 04/07/22 12:39 Pulse Rate 72 04/07/22 12:39 Respiratory Rate 18 04/07/22 12:39 Blood Pressure 110/58 L 04/07/22 12:39 Pulse Oximetry 99 04/07/22 12:39 Oxygen Delivery Method 04/07/22 12:39 Course Orders Ordered: ED Orders 04/07/22 12:49 Complete Blood Count AUTO DIFF Stat Comprehensive Metabolic Panel Stat Lipase Stat Magnesium Stat Troponin & CK Cardiac Panel Stat 04/07/22 12:55 XR chest 1V Stat EKG-12 Lead Stat 04/07/22 15:04 Trop I [Troponin I] Stat Vital Signs Vital signs: Vital Signs - 8 hr 04/07/22 12:39 04/07/22 13:33 04/07/22 13:35 Temperature 97.2 F L Pulse Rate 72 76 71 Respiratory Rate 18 18 Blood Pressure 110/58 L Pulse Oximetry 99 97 98 Oxygen Delivery Method Room Air 04/07/22 13:35 04/07/22 13:45 04/07/22 13:45 Temperature 98.4 F Pulse Rate 70 Respiratory Rate 18 Blood Pressure 124/73 134/73 Pulse Oximetry 96 Oxygen Delivery Method 04/07/22 14:00 04/07/22 14:01 04/07/22 14:01 Temperature Pulse Rate 71 69 Respiratory Rate 18 16 Blood Pressure 145/84 H Pulse Oximetry 99 99 Oxygen Delivery Method 04/07/22 14:15 04/07/22 14:15 04/07/22 14:30 Temperature Pulse Rate 70 Respiratory Rate 20 Blood Pressure 149/81 H 152/83 H Pulse Oximetry 97 Oxygen Delivery Method 04/07/22 14:30 04/07/22 15:00 04/07/22 15:02 Temperature Pulse Rate 69 78 74 Respiratory Rate 20 22 21 Blood Pressure Pulse Oximetry 97 98 98 Oxygen Delivery Method 04/07/22 15:02 04/07/22 15:15 04/07/22 15:15 Temperature Pulse Rate 73 Respiratory Rate 21 Blood Pressure 118/65 117/64 Pulse Oximetry 97 Oxygen Delivery Method 04/07/22 15:30 04/07/22 15:31 04/07/22 15:31 Temperature Pulse Rate 67 78 Respiratory Rate 23 Blood Pressure 124/67 Pulse Oximetry 92 96 Oxygen Delivery Method 04/07/22 15:45 04/07/22 15:45 Temperature Pulse Rate 67 Respiratory Rate 20 Blood Pressure 113/68 Pulse Oximetry 98 Oxygen Delivery Method Medical Decision Making Lab Data Result diagrams: 04/07/22 12:49 04/07/22 12:49 Labs: Lab Results 04/07/22 04/07/22 04/07/22 Range/Units 12:49 12:49 15:04 WBC 8.5 (4.5-11.0) X10^3/uL RBC 4.89 (4.5-5.9) X10^6/uL Hgb 14.1 (13.5-17.5) g/dL Hct 41.3 (41-53) % MCV 84.4 (80-100) fL MCH 28.8 (26-34) PG MCHC 34.1 (30-36) % RDW 15.0 H (11.6-14.8) % Plt Count 228 (150-400) X10^3/uL Neut % (Auto) 61.6 (50-75) % Lymph % (Auto) 25.9 (25-40) % [place] % (Auto) 7.6 (3-14) % Eos % (Auto) 4.2 H (2-4) % Baso % (Auto) 0.7 (0-2) % Neut # (Auto) 5300 (0796-8160) /uL Lymph # (Auto) 2200 (5407-8547) /uL [place] # (Auto) 700 (0-900) /uL Eos # (Auto) 400 (0-450) /uL Baso # (Auto) 100 (0-100) /uL Sodium 141 (137-145) mmol/L Potassium 4.9 (3.4-5.1) mmol/L Chloride 103 (98-107) mmol/L Carbon Dioxide 25 (22-32) mmol/L BUN 24 H (9-20) mg/dL Creatinine 1.30 H (0.66-1.25) mg/dL Estimated GFR 58 L (>60) mL/min BUN/Creatinine Ratio 18.5 (6-22) Glucose 106 (80-110) mg/dL Calcium 9.2 (8.4-10.2) mg/dL Magnesium 2.3 (1.6-2.3) mg/dL Total Bilirubin 1.0 (0.2-1.3) mg/dL AST 27 (17-59) IU/L ALT 18 (<50) IU/L Alkaline Phosphatase 60 (38-126) U/L Total Creatine Kinase 82 (55-170) U/L CK-MB (CK-2) TNP CK-MB (CK-2) Rel Index TNP Troponin I 0.017 0.017 (0.01-0.034) ng/mL Total Protein 7.5 (6.3-8.2) g/dL Albumin 4.1 (3.5-5.0) g/dL Globulin 3.4 (1.7-4.1) g/dL Albumin/Globulin Ratio 1.2 (1.0-2.8) Lipase 94 (23-300) U/L Imaging Data Chest x-ray: Radiologist's Impression: [address] [address] XRay Report Signed Patient: Jackie Hurley Jr MR#: [id number] : 1950 Acct:[id number] Age/Sex: 71 / M Date of Service: 04/07/22 Loc: ED Accession Number: [id number] ?? Procedure: XR chest 1V Ordering Provider: Anayeli Maldonado D.O. PROCEDURE:? XR CHEST 1V ? INDICATIONS:? chest pain ? TECHNIQUE:? One view of the chest was acquired.? ? COMPARISON:? [facility], CR, XR CHEST 1V, 06/01/2021, 21:25. ? FINDINGS:? ? Surgical changes and devices:? None.? ? Lungs and pleura:? Lungs are clear.? No pleural effusions or pneumothorax.? ? Mediastinum:? Mediastinal contours appear normal.? Heart size is normal.? ? Bones and chest wall:? No suspicious bony lesions.? Overlying soft tissues appear unremarkable.? ? IMPRESSION:? No acute cardiopulmonary findings ? ? ? Approved by: Jaiden Jasso M.D. on 04/07/2022 at 12:45? ECG Data Attestation: I personally reviewed and interpreted this ECG as follows: Interpretation: EKG 1. Sinus rhythm rate of 70 3p are 124 QRS of 126 QTC of 456. Patient appears to have AFib or is dropping beats. Patient does not have any elevation, T-wave inverted in 1 aVL. Flattened lateral Leads. EKG 2 shows undetermined rhythm rate of 75 QRS of 152 and QTC of 477. No acute ST elevation. MDM Narrative Medical decision making narrative: This is a 71-year-old male with reported low blood pressure who is normotensive here in the department even slightly hypertensive had possibly a syncopal episod e but not clearly witnessed but did have some fusion but has some baseline issues mentation and speech normally. Patient has had blood pressure issues recently for at least several weeks they were holding his blood pressure medication and restarted after getting 116 and 110 systolic discuss that this likely not helpful. Patient's labs overall did not show major abnormalities, EKG has AFib but no acute dynamic changes noted troponin was repeated x2. Discussed with family about getting echo as outpatient as well to monitor blood pressure but hold his metoprolol and not restart at this time. Discharge Plan Departure Patient Disposition: Home Clinical Impression: Hypotension Activity Restrictions/Additional Instructions: Follow-up with your physician I would also recommend following up with your audiology technician. You may benefit from having an echo or ultrasound of your heart. Please stop your metoprolol this is likely contributing to your low blood pressure. You can continue torsemide at 1 tablet daily You may continue your other home medications at their current doses but do con tinue to decrease your insulin as directed by your physician. I would recommend to continue to check blood pressures daily if elevated greater than 180 systolic recheck in 1-2 hours and if still elevated you can give 1 dose of metoprolol. Otherwise continue to hold your blood pressure medication and call your physician for guidance if staying elevated above 140s to 180s. Please return for lightheadedness or passing out, persistently low blood pressures, color changes, difficulty breathing, persistent vomiting, black or bloody stools, new swelling in extremities or other new or concerning symptoms. Prescriptions: No Action mupirocin 2 % ointment 1 applic TOP TID Qty: 30 0RF (DME) Light pressure salma hose Qty: 1 0RF Dose Instruction: As directed Rx Instructions: As directed (DME) Donut Pillow Qty: 1 0RF Dose Instruction: As directed Rx Instructions: As directed (DME) Medium to high pressure socks Qty: 1 0RF Dose Instruction: As directed Rx Instructions: As directed nystatin 100,000 unit/gram cream 1 applic topical TID 14 Days Qty: 150 1RF insulin regular human [Humulin R Regular U-100 Insuln] 100 unit/mL solution See Rx Instructions SUBCUT TIDAC Qty: 10 12RF Dose Instruction: if blood sugar is <150 inject 0 units, 151-200 inject 5 units, 201-250 inject 10 units; >250 inject 15 units SUBCUT TIDAC; Label Comments: spouse states has not needed for a long time. Rx Instructions: if blood sugar is <150 inject 0 units, 151-200 inject 5 units, 201-250 inject 10 units; >250 inject 15 units SUBCUT TIDAC; (DME) Syringes: Ultra Fine Insulin Syringe w/Needle 0 .Route .MEDSUPPLY Qty: 100 3RF Dose Instruction: As directed Rx Instructions: As directed zinc oxide 20 % ointment 1 applictn TOP BID PRN (Reason: skin irritation) Qty: 56.7 0RF albuterol sulfate [ProAir HFA] 90 mcg/actuation HFA aerosol inhaler See Rx Instructions .ROUTE .COMPLEX Qty: 8.5 3RF Dose Instruction: INHALE 2 PUFFS BY MOUTH EVERY 6 HOURS NEEDED FOR SHORTNESS OF BREATH Rx Instructions: INHALE 2 PUFFS BY MOUTH EVERY 6 HOURS NEEDED FOR SHORTNESS OF BREATH OneTouch Verio test strips Strip See Rx Instructions .ROUTE .COMPLEX Qty: 300 11RF Dose Instruction: USE TO TEST BLOOD SUGAR UP TO FOUR TIMES DAILY Rx Instructions: USE TO TEST BLOOD SUGAR UP TO FOUR TIMES DAILY terbinafine HCl 1 % cream 1 applic topical BID Qty: 30 2RF mupirocin 2 % ointment 1 applic topical BID Qty: 15 1RF finasteride 5 mg tablet See Rx Instructions .ROUTE .COMPLEX Qty: 90 3RF Dose Instruction: TAKE 1 TABLET(5 MG) BY MOUTH EVERY DAY Rx Instructions: TAKE 1 TABLET(5 MG) BY MOUTH EVERY DAY triamcinolone acetonide 0.1 % cream See Rx Instructions .ROUTE .COMPLEX Qty: 30 0RF Dose Instruction: APPLY TOPICALLY TO THE AFFECTED AREA DAILY FOR ECZEMA Rx Instructions: APPLY TOPICALLY TO THE AFFECTED AREA DAILY FOR ECZEMA Lantus Solostar U-100 Insulin 100 unit/mL (3 mL) insulin pen See Rx Instructions .ROUTE .COMPLEX Qty: 30 11RF Dose Instruction: INJECT 40 UNITS UNDER THE SKIN IN THE MORNING AND 90 UNITS IN THE EVENING Rx Instructions: INJECT 40 UNITS UNDER THE SKIN IN THE MORNING AND 90 UNITS IN THE EVENING simvastatin 40 mg tablet See Rx Instructions .ROUTE .COMPLEX Qty: 90 2RF Dose Instruction: TAKE 1 TABLET BY MOUTH DAILY AT BEDTIME Rx Instructions: TAKE 1 TABLET BY MOUTH DAILY AT BEDTIME insulin lispro [Humalog KwikPen Insulin] 100 unit/mL insulin pen 5 unit SUBCUT DAILY Qty: 15 5RF Rx Instructions: at lunch quetiapine 25 mg tablet See Rx Instructions .ROUTE .COMPLEX Qty: 90 3RF Dose Instruction: TAKE 1/4 TABLET IN THE MORNING AND 1/2 TABLET AT NIGHT Rx Instructions: TAKE 1/4 TABLET IN THE MORNING AND 1/2 TABLET AT NIGHT cyclobenzaprine 10 mg tablet See Rx Instructions .ROUTE .COMPLEX Qty: 90 3RF Dose Instruction: TAKE 1 TABLET BY MOUTH AT BEDTIME NEEDED FOR MUSCLE SPASM Rx Instructions: TAKE 1 TABLET BY MOUTH AT BEDTIME NEEDED FOR MUSCLE SPASM Eliquis 2.5 mg tablet 2.5 mg PO QPM Qty: 90 3RF Eliquis 5 mg tablet 5 mg PO QAM Qty: 90 3RF tamsulosin 0.4 mg capsule See Rx Instructions .ROUTE .COMPLEX Qty: 180 3RF Dose Instruction: TAKE 1 CAPSULE(0.4 MG) BY MOUTH TWICE DAILY Rx Instructions: TAKE 1 CAPSULE(0.4 MG) BY MOUTH TWICE DAILY polyethylene glycol 3350 17 gram powder in packet See Rx Instructions .ROUTE .COMPLEX Qty: 30 6RF Dose Instruction: MIX AND DRINK 1 PACKET BY MOUTH DAILY Rx Instructions: MIX AND DRINK 1 PACKET BY MOUTH DAILY metoprolol succinate 25 mg tablet extended release 24 hr 25 mg PO DAILY Qty: 90 3RF potassium chloride 10 mEq capsule, extended release See Rx Instructions .ROUTE .COMPLEX Qty: 180 3RF Dose Instruction: TAKE 1 CAPSULE BY MOUTH TWICE DAILY Rx Instructions: TAKE 1 CAPSULE BY MOUTH TWICE DAILY (DME) pen needle, diabetic [BD Ultra-Fine Short Pen Needle] 31 gauge x 5/16 needle See Rx Instructions .ROUTE .COMPLEX Qty: 100 1RF Dose Instruction: USE TO INJECT INSULIN TWICE DAILY Rx Instructions: USE TO INJECT INSULIN TWICE DAILY torsemide 20 mg tablet See Rx Instructions .ROUTE .COMPLEX Qty: 362 0RF Dose Instruction: TAKE 3 TABLETS BY MOUTH EVERY DAY, INCREASE TO 4 TABLETS NEEDED FOR WORSENING SYMPTOMS Rx Instructions: TAKE 3 TABLETS BY MOUTH EVERY DAY, INCREASE TO 4 TABLETS NEEDED FOR WORSENING SYMPTOMS nitrofurantoin macrocrystal 100 mg capsule 100 mg PO BID Qty: 10 0RF Rx Instructions: must administer with a meal/food fluoxetine 20 mg capsule See Rx Instructions .ROUTE .COMPLEX Qty: 90 3RF Dose Instruction: TAKE 1 CAPSULE BY MOUTH DAILY Rx Instructions: TAKE 1 CAPSULE BY MOUTH DAILY hydrocodone-acetaminophen 5-325 mg tablet 1 tab PO Q6H Qty: 120 0RF nitroglycerin 0.4 mg tablet, sublingual 0.4 mg sublingual Q5M PRN (Reason: Chest Pain) Qty: 30 0RF Rx Instructions: do not exceed 3 doses per episode aspirin [Adult Aspirin Regimen] 81 mg tablet,delayed release (DR/EC) 81 mg PO DAILY fluconazole 50 mg tablet 50 mg PO DAILY Qty: 7 0RF sennosides [senna] 8.6 mg Tablet 25.8 mg PO Q12H docusate calcium 240 mg Capsule 240 mg PO QID Lancet: Device 1 st INJ QID magnesium citrate solution 150 ml PO BID PRN (Reason: constipation) Qty: 296 0RF meclizine 25 mg tablet 25 mg PO BID PRN (Reason: dizziness) Qty: 10 0RF Referrals: Lance Lyons DO [Primary Care Provider] - Visit Report Forms: Patient Portal/API
[2022-04-07 15:37] LABS: Troponin I 0.017 ng/mL (0.01-0.034)
== END 2022-04-07 16:15 | disposition home or self-care (01) ==
PROVIDERS: Emergency Provider Emergency Medicine; Family Provider Family Medicine; PCP Family Medicine
DX: I95.9 Hypotension, unspecified (principal); R55 Syncope and collapse; R07.9 Chest pain, unspecified
CPT/HCPCS: 36415; 71045; 80053; 82550; 83690; 83735; 84484; 85025; 93005; 93010; 99284

== ENCOUNTER 2022-04-24 12:33 | Emergency (ER) | payer MEDICARE, MEDICAID, SELFPAY ==
[2021-06-02 00:48] VITALS: BMI 38.7
[2022-04-24] VITALS (44 sets, daily range): BP systolic 75–127; BP diastolic 44–91; PULSE 86–110; RESP 17–25; TEMP 36.8; O2SAT 63–100; BMI 28.5
--- NOTE | 2022-04-24 12:42 | DI.CT.S_ITS ---
PROCEDURE: CT HEAD/BRAIN WO CON INDICATIONS: fall TECHNIQUE: Noncontrast 4.5 mm thick angled axial sections acquired from the foramen magnum to the vertex, with coronal and sagittal reformats. For radiation dose reduction, the following was used: automated exposure control, adjustment of mA and/or kV according to patient size. COMPARISON: [facility], CT, CT HEAD/BRAIN WO CON, 02/27/2022, 11:52. [facility], CT, CT HEAD/BRAIN WO CON, 11/15/2021, 20:07. FINDINGS: Image quality: Excellent. CSF spaces: Basal cisterns are patent. No new extra-axial fluid collections. The ventricles are symmetric in size and shape. Brain: No acute intracranial hemorrhage or mass effect. Large area of chronic encephalomalacia is seen in the posterior left cerebral hemisphere. There is ex vacuo dilatation of the left lateral ventricle. There is cerebral volume loss for age, with resultant ventricular and sulcal prominence. There is intracranial internal carotid artery atherosclerosis. Skull and face: Postsurgical changes are seen from left-sided craniotomy. Calvarium and visualized facial bones appear intact, without suspicious lesions. Sinuses: Visualized sinuses and mastoids are clear. IMPRESSION: 1. No acute intracranial abnormality. 2. Stable chronic craniotomy changes and left sided chronic encephalomalacia. Approved by: Tristan Alexis M.D. on 04/24/2022 at 13:44
--- NOTE | 2022-04-24 12:42 | DI.CT.S_ITS ---
PROCEDURE: CT CERVICAL SPINE WO CON INDICATIONS: fall TECHNIQUE: Noncontrast 3 mm thick sections acquired from the skull base to the T4 level. Sagittal and coronal reformats were then constructed. For radiation dose reduction, the following was used: automated exposure control, adjustment of mA and/or kV according to patient size. COMPARISON: [facility], CT, CT CERVICAL SPINE WO CON, 11/15/2021, 20:07. [facility], CT, CT CERVICAL SPINE WO CON, 08/04/2018, 10:35. FINDINGS: Image quality: Excellent. Bones: No acute fractures or dislocations. Visualized superior ribs are intact. There is straightening of the normal cervical lordosis. Multilevel disc space narrowing degenerative endplate changes are seen. There is multilevel uncovertebral joint and facet hypertrophy. Bilateral sternoclavicular joint degenerative changes are present. Left-sided craniotomy changes are partially imaged with associated chondromalacia. Soft tissues: Prevertebral soft tissues are normal in thickness. No paravertebral hematomas. No apical pneumothoraces. IMPRESSION: No acute cervical spine fracture or subluxation. Multilevel spondylosis. Approved by: Tristan Alexis M.D. on 04/24/2022 at 13:46
--- NOTE | 2022-04-24 12:42 | DI.RAD.S_ITS ---
PROCEDURE: XR CHEST 1V INDICATIONS: chest pain TECHNIQUE: One view of the chest was acquired. COMPARISON: [facility], , XR CHEST 1V, 04/07/2022, 13:24. [facility], CR, XR CHEST 1V, 06/01/2021, 21:25. FINDINGS: Surgical changes and devices: None. Lungs and pleura: Lungs are clear. No pleural effusions or pneumothorax. Mediastinum: Mediastinal contours appear normal. Heart size is enlarged. Bones and chest wall: No suspicious bony lesions. Overlying soft tissues appear unremarkable. IMPRESSION: No acute cardiopulmonary abnormality. Dictated by: Dudley Bowman M.D. on 04/24/2022 at 12:58 Approved by: Dudley Bowman M.D. on 04/24/2022 at 12:59
--- NOTE | 2022-04-24 12:49 | ED.SYNCOPE ---
HPI - Syncope General Chief Complaint: Fall Stated Complaint: GLF,low bp Time Seen by Provider: 04/24/22 12:42 Source: family and EMS Mode of arrival: EMS Limitations: altered mental status History of Present Illness HPI narrative: Patient is a 71-year-old male history of hemorrhagic stroke with left-sided craniotomy with residual difficulty communicating, also atrial fibrillation presenting today after syncopal episode. Family take his vitals and a very regular basis when he complains of chest discomfort they gave him aspirin and nitro. He apparently indicated that he has some chest discomfort they gave him aspirin and nitro and then son heard him fall down backwards hitting his head. Brief loss of consciousness. EMS arrived noted that he was very hypotensive is a. He is very confused unclear what his baseline is. Although thinks that his communicating is possibly at baseline now. According to records he was here for almost the exact same thing on 04/07/2022. At that time they given him aspirin and nitro and he had a syncopal episode. Related Data Home Medications Medication Instructions Recorded Confirmed Lancet: Device 1 st INJ QID 02/23/19 02/20/22 docusate calcium 240 mg capsule 240 mg PO QID 02/23/19 02/20/22 sennosides 8.6 mg tablet (senna) 25.8 mg PO Q12H 02/23/19 02/20/22 aspirin 81 mg tablet,delayed 81 mg PO DAILY 06/07/19 02/20/22 release (Adult Aspirin Regimen) Previous Rx's Medication Instructions Recorded insulin regular human 100 unit/mL See Rx Instructions SUBCUT TIDAC 11/05/17 injection solution (Humulin R #10 mL Regular U-100 Insulin) Syringes: Ultra Fine Insulin #100 ea 02/14/18 Syringe w/Needle Light pressure salma hose #1 ea 07/05/18 Donut Pillow #1 ea 07/06/18 zinc oxide 20 % topical ointment 1 applictn topical BID PRN skin 07/07/18 irritation #56.7 grams Medium to high pressure socks #1 ea 09/06/18 magnesium citrate 150 ml PO BID PRN constipation 02/23/19 #296 mL ProAir HFA 90 mcg/actuation See Rx Instructions .Route 10/16/19 aerosol inhaler (albuterol sulfate) .COMPLEX #8.5 grams mupirocin 2 % topical ointment 1 applic topical TID #30 grams 02/24/20 blood sugar diagnostic (OneTouch See Rx Instructions .Route 02/17/21 Verio test strips) .COMPLEX #300 strips nystatin 100,000 unit/gram topical 1 applic topical TID 2 weeks #150 03/29/21 cream grams terbinafine HCl 1 % topical cream 1 applic topical BID #30 grams 04/09/21 fluconazole 50 mg tablet 50 mg PO DAILY #7 tabs 05/09/21 mupirocin 2 % topical ointment 1 applic topical BID apply 05/14/21 ointment to wounds on R leg #15 grams finasteride 5 mg tablet See Rx Instructions .Route 08/04/21 .COMPLEX #90 tabs triamcinolone acetonide 0.1 % See Rx Instructions .Route 08/07/21 topical cream .COMPLEX #30 grams Lantus Solostar U-100 Insulin 100 See Rx Instructions .Route 08/12/21 unit/mL (3 mL) subcutaneous pen .COMPLEX #30 mL (insulin glargine) simvastatin 40 mg tablet See Rx Instructions .Route 09/05/21 .COMPLEX #90 tabs insulin lispro 100 unit/mL 5 unit (0.05 mL) SUBCUT DAILY #15 09/08/21 subcutaneous pen (Humalog KwikPen mL (U-100) Insulin) quetiapine 25 mg tablet See Rx Instructions .Route 09/26/21 .COMPLEX #90 tabs cyclobenzaprine 10 mg tablet See Rx Instructions .Route 09/30/21 .COMPLEX #90 tabs apixaban 2.5 mg tablet (Eliquis) 2.5 mg PO QPM #90 tabs 10/27/21 apixaban 5 mg tablet (Eliquis) 5 mg PO QAM #90 tabs 10/27/21 tamsulosin 0.4 mg capsule See Rx Instructions .Route 12/05/21 .COMPLEX #180 caps polyethylene glycol 3350 17 gram See Rx Instructions .Route 12/12/21 oral powder packet .COMPLEX #30 ea metoprolol succinate 25 mg 25 mg PO DAILY #90 tabs 01/08/22 tablet,extended release 24 hr potassium chloride 10 mEq See Rx Instructions .Route 02/02/22 capsule,extended release .COMPLEX #180 caps meclizine 25 mg tablet 25 mg PO BID PRN dizziness #10 tabs 02/27/22 pen needle, diabetic 31 gauge x #100 ea 03/03/22 5/16 (BD Ultra-Fine Short Pen Needle) torsemide 20 mg tablet See Rx Instructions .Route 03/09/22 .COMPLEX #362 tabs nitrofurantoin macrocrystal 100 mg 100 mg PO BID #10 caps 03/16/22 capsule fluoxetine 20 mg capsule See Rx Instructions .Route 03/26/22 .COMPLEX #90 caps hydrocodone 5 mg-acetaminophen 325 1 tab PO Q6H #120 tabs 04/02/22 mg tablet nitroglycerin 0.4 mg sublingual 0.4 mg sublingual Q5M PRN Chest 04/06/22 tablet Pain #30 tabs Allergies Allergy/AdvReac Type Severity Reaction Status Date / Time triamcinolone Allergy Mild Hives Verified 02/27/22 11:29 Review of Systems Review of Systems ROS Unobtainable: All systems reviewed & are unremarkable except as noted in HPI and below Patient History Medical History Actinic keratoses Acute CHF Atrial fibrillation (02/21/15) Benign prostatic hyperplasia BPH (benign prostatic hyperplasia) Cardiomyopathy (02/21/15) Cataracts, bilateral (07/26/17) CHF (congestive heart failure) Chronic neck pain Coronary artery disease Diabetes Hematuria (~2016) History of CVA (cerebrovascular accident) (07/12/16) Hyperlipidemia Hypertension Hypotension Lower extremity edema Peripheral vascular disease PVD (peripheral vascular disease) Rash Renal failure Status post myocardial infarction (1994) Suspicious nevus Systolic CHF Surgical History History of cranioplasty (10/30/16) History of surgery on arm History of vasectomy S/P TURP (10/19/13) Status post craniectomy (07/12/16) Family History Mother Age: 92 Dementia Father Cancer Social History household members: spouse Smoking Status: Former smoker second hand exposure: No alcohol intake: never substance use type: does not use Smoking Status: Former smoker alcohol intake frequency: holidays/special occasions only Substance Use Type: does not use Exam Initial Vital Signs Initial Vital Signs: Vital Signs Pulse Rate 104 H 04/24/22 12:37 Respiratory Rate 25 H 04/24/22 12:37 Pulse Oximetry 92 04/24/22 12:37 GENERAL: 71-year-old male alert and in [no acute] distress. HEENT: Head obvious left-sided craniectomy CARDIOVASCULAR: Regular rate and rhythm without murmurs, rubs or gallops. RESPIRATORY: Breath sounds equal bilaterally, no wheezes rales or rhonchi. ABDOMEN: Soft, nontender. Normoactive bowel sounds all 4 quadrants. No guarding or rebound. EXTREMITIES: Normal range of motion, no clubbing or edema. Neurovascularly intact NEUROLOGICAL: Mild slurring of speech moving extremities SKIN: Warm, dry, no laceration, no petechiae, no rashes or lesions. Course Orders Ordered: ED Orders 04/24/22 12:35 Complete Blood Count AUTO DIFF Stat Comprehensive Metabolic Panel Stat Lactate (Lactic Acid) Stat Lipase Stat NT-proBNP (BNP-Adult 18+) Stat Partial Thromboplastin Time Stat Prothrombin Time INR Stat Troponin & CK Cardiac Panel Stat 04/24/22 12:42 CT cervical spine wo con Stat CT head/brain wo con Stat XR chest 1V Stat 04/24/22 13:32 EKG-12 Lead Stat Discontinued Medications Sodium Chloride (Normal Saline 0.9%) 1,000 mls @ 1,000 mls/hr IV CONT SHAUN Last Infusion: 04/24/22 14:30 Dose: 0 mls/hr Documented By: Admin: 04/24/22 12:51 Dose: 1,000 mls/hr Documented By: KF Vital Signs Vital signs: Vital Signs - 8 hr 04/24/22 12:44 04/24/22 12:37 04/24/22 12:38 Temperature 98.2 F Pulse Rate 102 H 104 H Respiratory Rate 20 25 H Blood Pressure 91/54 L 95/52 L Pulse Oximetry 92 92 Oxygen Delivery Method Room Air 04/24/22 12:38 04/24/22 12:41 04/24/22 12:41 Temperature Pulse Rate 104 H 104 H Respiratory Rate 25 H 17 Blood Pressure 97/52 L Pulse Oximetry 94 91 Oxygen Delivery Method 04/24/22 12:43 04/24/22 12:43 04/24/22 12:45 Temperature Pulse Rate 104 H 103 H Respiratory Rate 23 20 Blood Pressure 82/44 L Pulse Oximetry 94 90 L Oxygen Delivery Method 04/24/22 12:45 04/24/22 12:52 04/24/22 12:52 Temperature Pulse Rate 98 H Respiratory Rate Blood Pressure 91/54 L 88/50 L Pulse Oximetry 92 Oxygen Delivery Method 04/24/22 12:57 04/24/22 12:57 04/24/22 13:00 Temperature Pulse Rate 101 H 101 H Respiratory Rate Blood Pressure 75/49 L Pulse Oximetry 94 Oxygen Delivery Method 04/24/22 13:01 04/24/22 13:01 04/24/22 13:04 Temperature Pulse Rate 101 H 101 H Respiratory Rate Blood Pressure 102/58 L Pulse Oximetry 96 93 Oxygen Delivery Method 04/24/22 13:04 04/24/22 13:07 04/24/22 13:07 Temperature Pulse Rate 101 H Respiratory Rate Blood Pressure 115/69 123/63 Pulse Oximetry 95 Oxygen Delivery Method 04/24/22 13:10 04/24/22 13:10 04/24/22 13:16 Temperature Pulse Rate 100 H Respiratory Rate Blood Pressure 121/53 L 114/60 Pulse Oximetry 96 Oxygen Delivery Method 04/24/22 13:16 04/24/22 13:23 04/24/22 13:23 Temperature Pulse Rate 86 101 H Respiratory Rate Blood Pressure 95/51 L Pulse Oximetry 98 96 Oxygen Delivery Method 04/24/22 13:28 04/24/22 13:28 04/24/22 13:30 Temperature Pulse Rate 93 H Respiratory Rate Blood Pressure 111/56 L 93/57 L Pulse Oximetry 96 Oxygen Delivery Method 04/24/22 13:30 04/24/22 13:35 04/24/22 13:35 Temperature Pulse Rate 96 H 95 H Respiratory Rate Blood Pressure 113/64 Pulse Oximetry 63 L 97 Oxygen Delivery Method 04/24/22 16:00 04/24/22 14:05 04/24/22 14:05 Temperature Pulse Rate 102 H 96 H Respiratory Rate Blood Pressure 105/61 105/63 Pulse Oximetry 99 77 L Oxygen Delivery Method Room Air 04/24/22 14:09 04/24/22 14:09 04/24/22 14:10 Temperature Pulse Rate 101 H 101 H Respiratory Rate Blood Pressure 127/53 L Pulse Oximetry 95 92 Oxygen Delivery Method 04/24/22 14:10 04/24/22 14:15 04/24/22 14:15 Temperature Pulse Rate 98 H Respiratory Rate Blood Pressure 91/51 L 95/58 L Pulse Oximetry 96 Oxygen Delivery Method 04/24/22 14:20 04/24/22 14:20 04/24/22 14:25 Temperature Pulse Rate 100 H 100 H Respiratory Rate Blood Pressure 101/61 Pulse Oximetry 96 96 Oxygen Delivery Method 04/24/22 14:25 04/24/22 14:30 04/24/22 14:30 Temperature Pulse Rate 101 H Respiratory Rate Blood Pressure 110/61 105/59 L Pulse Oximetry 94 Oxygen Delivery Method 04/24/22 14:35 04/24/22 14:35 04/24/22 14:41 Temperature Pulse Rate 96 H 100 H Respiratory Rate Blood Pressure 115/70 Pulse Oximetry 99 99 Oxygen Delivery Method 04/24/22 14:41 04/24/22 14:45 04/24/22 14:45 Temperature Pulse Rate 100 H Respiratory Rate Blood Pressure 113/91 H 105/57 L Pulse Oximetry 97 Oxygen Delivery Method 04/24/22 14:50 04/24/22 14:50 04/24/22 14:55 Temperature Pulse Rate 100 H 101 H Respiratory Rate Blood Pressure 101/56 L Pulse Oximetry 98 99 Oxygen Delivery Method 04/24/22 14:55 04/24/22 15:00 04/24/22 15:00 Temperature Pulse Rate 100 H Respiratory Rate Blood Pressure 107/60 109/63 Pulse Oximetry 98 Oxygen Delivery Method 04/24/22 15:05 04/24/22 15:05 04/24/22 15:10 Temperature Pulse Rate 101 H Respiratory Rate Blood Pressure 99/57 L 112/63 Pulse Oximetry 98 Oxygen Delivery Method 04/24/22 15:10 04/24/22 15:13 04/24/22 15:13 Temperature Pulse Rate 100 H 110 H Respiratory Rate Blood Pressure 110/64 Pulse Oximetry 94 84 L Oxygen Delivery Method 04/24/22 15:18 04/24/22 15:18 04/24/22 15:20 Temperature Pulse Rate 107 H 105 H Respiratory Rate Blood Pressure 105/68 Pulse Oximetry 91 96 Oxygen Delivery Method 04/24/22 15:20 04/24/22 15:25 04/24/22 15:25 Temperature Pulse Rate 104 H Respiratory Rate Blood Pressure 118/88 117/61 Pulse Oximetry 97 Oxygen Delivery Method 04/24/22 15:30 04/24/22 15:30 04/24/22 15:35 Temperature Pulse Rate 104 H 102 H Respiratory Rate Blood Pressure 107/62 Pulse Oximetry 94 99 Oxygen Delivery Method 04/24/22 15:35 04/24/22 15:40 04/24/22 15:40 Temperature Pulse Rate 102 H Respiratory Rate Blood Pressure 104/58 L 104/53 L Pulse Oximetry 99 Oxygen Delivery Method 04/24/22 15:45 04/24/22 15:45 04/24/22 15:50 Temperature Pulse Rate 102 H Respiratory Rate Blood Pressure 110/56 L 110/60 Pulse Oximetry 100 Oxygen Delivery Method 04/24/22 15:50 04/24/22 15:55 04/24/22 15:55 Temperature Pulse Rate 102 H 102 H Respiratory Rate Blood Pressure 105/61 Pulse Oximetry 98 98 Oxygen Delivery Method MDM - Syncope Lab Data Result diagrams: 04/24/22 12:35 04/24/22 12:35 Labs: Lab Results 04/24/22 04/24/22 04/24/22 Range/Units 12:35 12:35 12:35 WBC 9.2 (4.5-11.0) X10^3/uL RBC 4.84 (4.5-5.9) X10^6/uL Hgb 13.9 (13.5-17.5) g/dL Hct 40.5 L (41-53) % MCV 83.8 (80-100) fL MCH 28.8 (26-34) PG MCHC 34.4 (30-36) % RDW 14.8 (11.6-14.8) % Plt Count 232 (150-400) X10^3/uL Neut % (Auto) 65.9 (50-75) % Lymph % (Auto) 24.1 L (25-40) % [place] % (Auto) 7.3 (3-14) % Eos % (Auto) 2.3 (2-4) % Baso % (Auto) 0.4 (0-2) % Neut # (Auto) 6000 (9186-8053) /uL Lymph # (Auto) 2200 (0554-1302) /uL [place] # (Auto) 700 (0-900) /uL Eos # (Auto) 200 (0-450) /uL Baso # (Auto) 0 (0-100) /uL PT 14.0 H (10.1-12.7) SECONDS INR 1.2 (0.9-1.3) APTT 36 (26-36) SECONDS Sodium 138 (137-145) mmol/L Potassium 4.2 (3.4-5.1) mmol/L Chloride 101 (98-107) mmol/L Carbon Dioxide 25 (22-32) mmol/L BUN 23 H (9-20) mg/dL Creatinine 1.20 (0.66-1.25) mg/dL Estimated GFR > 60 (>60) mL/min BUN/Creatinine Ratio 19.2 (6-22) Glucose 168 H (80-110) mg/dL Lactate (0.7-2.1) mmol/L Calcium 8.8 (8.4-10.2) mg/dL Total Bilirubin 1.3 (0.2-1.3) mg/dL AST 23 (17-59) IU/L ALT 21 (<50) IU/L Alkaline Phosphatase 57 (38-126) U/L Total Creatine Kinase 84 (55-170) U/L CK-MB (CK-2) TNP CK-MB (CK-2) Rel Index TNP Troponin I 0.016 (0.01-0.034) ng/mL NT-Pro-B Natriuret Pep (<125) pg/mL Total Protein 7.3 (6.3-8.2) g/dL Albumin 4.1 (3.5-5.0) g/dL Globulin 3.2 (1.7-4.1) g/dL Albumin/Globulin Ratio 1.3 (1.0-2.8) Lipase 86 (23-300) U/L 04/24/22 04/24/22 04/24/22 Range/Units 12:35 12:35 15:29 WBC (4.5-11.0) X10^3/uL RBC (4.5-5.9) X10^6/uL Hgb (13.5-17.5) g/dL Hct (41-53) % MCV (80-100) fL MCH (26-34) PG MCHC (30-36) % RDW (11.6-14.8) % Plt Count (150-400) X10^3/uL Neut % (Auto) (50-75) % Lymph % (Auto) (25-40) % [place] % (Auto) (3-14) % Eos % (Auto) (2-4) % Baso % (Auto) (0-2) % Neut # (Auto) (4064-1940) /uL Lymph # (Auto) (0379-1113) /uL [place] # (Auto) (0-900) /uL Eos # (Auto) (0-450) /uL Baso # (Auto) (0-100) /uL PT (10.1-12.7) SECONDS INR (0.9-1.3) APTT (26-36) SECONDS Sodium (137-145) mmol/L Potassium (3.4-5.1) mmol/L Chloride (98-107) mmol/L Carbon Dioxide (22-32) mmol/L BUN (9-20) mg/dL Creatinine (0.66-1.25) mg/dL Estimated GFR (>60) mL/min BUN/Creatinine Ratio (6-22) Glucose (80-110) mg/dL Lactate 3.1 H 2.0 (0.7-2.1) mmol/L Calcium (8.4-10.2) mg/dL Total Bilirubin (0.2-1.3) mg/dL AST (17-59) IU/L ALT (<50) IU/L Alkaline Phosphatase (38-126) U/L Total Creatine Kinase (55-170) U/L CK-MB (CK-2) CK-MB (CK-2) Rel Index Troponin I (0.01-0.034) ng/mL NT-Pro-B Natriuret Pep 801 H (<125) pg/mL Total Protein (6.3-8.2) g/dL Albumin (3.5-5.0) g/dL Globulin (1.7-4.1) g/dL Albumin/Globulin Ratio (1.0-2.8) Lipase (23-300) U/L Urine Dip Bedside Urine Glucose Negative Bedside Urine Bilirubin - Negative Bedside Urine Ketone - Negative Urine Specific [place] 1.010 Bedside Urine Occult Blood - Negative Bedside Urine pH 6.0 Bedside Urine Protein - Negative Bedside Urine Urobilinogen - Negative Bedside Urine Nitrite - Negative Bedside Urine Leukocytes - Negative Esterase Imaging Data CT scan - head: Radiologist's Impression: CT Scan Report Signed Patient: Jackie Hurley Jr MR#: [id number] : 1950 Acct:[id number] Age/Sex: 71 / M Date of Service: 04/24/22 Loc: ED Accession Number: [id number] ?? Procedure: CT head/brain wo con Ordering Provider: Leanne Lomax D.O. PROCEDURE:? CT HEAD/BRAIN WO CON ? INDICATIONS:? fall ? TECHNIQUE:? Noncontrast 4.5 mm thick angled axial sections acquired from the foramen magnum to the vertex, with coronal and sagittal reformats.? For radiation dose reduction, the following was used:? automated exposure control, adjustment of mA and/or kV according to patient size.? ? COMPARISON:? [facility], CT, CT HEAD/BRAIN WO CON, 02/27/2022, 11:52.? [facility], CT, CT HEAD/BRAIN WO CON, 11/15/2021, 20:07. ? FINDINGS:? Image quality:? Excellent.? ? CSF spaces:? Basal cisterns are patent.? No new extra-axial fluid collections.? The ventricles are symmetric in size and shape.? ? Brain:? No acute intracranial hemorrhage or mass effect.? Large area of chronic encephalomalacia is seen in the posterior left cerebral hemisphere.? There is ex vacuo dilatation of the left lateral ventricle.? There is cerebral volume loss for age, with resultant ventricular and sulcal prominence. There is intracranial internal carotid artery atherosclerosis.? ? Skull and face:? Postsurgical changes are seen from left-sided craniotomy.? Calvarium and visualized facial bones appear intact, without suspicious lesions.? ? Sinuses:? Visualized sinuses and mastoids are clear.? ? IMPRESSION:? 1. No acute intracranial abnormality. 2. Stable chronic craniotomy changes and left sided chronic encephalomalacia.? Approved by: Tristan Alexis M.D. on 04/24/2022 at 13:44? Chest x-ray: Radiologist's Impression: KATELYN Peraza [id number] XRay Report Signed Patient: Jackie Hurley Jr MR#: [id number] : 1950 Acct:[id number] Age/Sex: 71 / M Date of Service: 04/24/22 Loc: ED Accession Number: [id number] ?? Procedure: XR chest 1V Ordering Provider: Leanne Lomax D.O. PROCEDURE:? XR CHEST 1V ? INDICATIONS:? chest pain ? TECHNIQUE:? One view of the chest was acquired.? ? COMPARISON:? [facility], CR, XR CHEST 1V, 04/07/2022, 13:24.? [facility], CR, XR CHEST 1V, 06/01/2021, 21:25. ? FINDINGS:? ? Surgical changes and devices:? None.? ? Lungs and pleura:? Lungs are clear.? No pleural effusions or pneumothorax.? ? Mediastinum:? Mediastinal contours appear normal.? Heart size is enlarged.? ? Bones and chest wall:? No suspicious bony lesions.? Overlying soft tissues appear unremarkable.? ? IMPRESSION:? No acute cardiopulmonary abnormality. ? ? Dictated by: Dudley Bowman M.D. on 04/24/2022 at 12:58 CT - cervical spine: Radiologist's Impression: KAT[place] [id number] CT Scan Report Signed Patient: Jackie Hurley Jr MR#: [id number] : 1950 Acct:[id number] Age/Sex: 71 / M Date of Service: 04/24/22 Loc: ED Accession Number: [id number] ?? Procedure: CT cervical spine wo con Ordering Provider: Leanne Lomax D.O. PROCEDURE:? CT CERVICAL SPINE WO CON ? INDICATIONS:? fall ? TECHNIQUE:? Noncontrast 3 mm thick sections acquired from the skull base to the T4 level.? Sagittal and coronal reformats were then constructed.? For radiation dose reduction, the following was used:? automated exposure control, adjustment of mA and/or kV according to patient size.? ? COMPARISON:? [facility], CT, CT CERVICAL SPINE WO CON, 11/15/2021, 20:07.? [facility], CT, CT CERVICAL SPINE WO CON, 08/04/2018, 10:35. ? FINDINGS:? Image quality:? Excellent.? ? Bones:? No acute fractures or dislocations.? Visualized superior ribs are intact.? There is straightening of the normal cervical lordosis.? Multilevel disc space narrowing degenerative endplate changes are seen.? There is multilevel uncovertebral joint and facet hypertrophy.? Bilateral sternoclavicular joint degenerative changes are present.? Left-sided craniotomy changes are partially imaged with associated chondromalacia. ? Soft tissues:? Prevertebral soft tissues are normal in thickness.? No paravertebral hematomas.? No apical pneumothoraces.? ? IMPRESSION:? No acute cervical spine fracture or subluxation.? Multilevel spondylosis. ? Approved by: Tristan Alexis M.D. on 04/24/2022 at 13:46? ECG Data Interpretation: Sinus rhythm rate 85 similar to previous EKG P-waves is seen in lead to ill no ST changes similar to previous EKG MDM Narrative Medical decision making narrative: Is difficult all why patient was given nitroglycerin aspirin thought to be due to chest pain per his . Patient never complains of chest pain but he does not answer questions appropriately. His got confused thought nitroglycerin was for heart rate so every time he she thinks he complains of chest pain she gets some nitroglycerin and he passes out and becomes hypotensive. His blood pressure now remains stable he is back to his baseline mental status. Does not appear that he had another stroke head CT is negative. He ambulates in the ED at his baseline.. He is educated actually recommend that she just do not give him any medications at home and if she thinks he is in pain, then to come to the emergency department so we can evaluate him. She understands this patient wants to go home she wants to go home at this time I see no need for any admission or further workup. Discharge Plan Departure Patient Disposition: Home Clinical Impression: Orthostatic hypotension Instructions: DI for Orthostatic Hypotension Activity Restrictions/Additional Instructions: *You have been diagnosed with syncope hypotension *What to do: He is passing out because of nitroglycerin. If you feel like he is having chest pain a recommend coming to the emergency department for evaluation to determine if he is in atrial fibrillation or having heart attack. His blood pressure is very sensitive to nitroglycerin and it is making him passed out. *Continue to take medications as directed *Follow up with your primary care provider in 2-3 days or call [phone] *Return to ER if you should have recurrent episode of passing out [or] any new, worsening or concerning symptoms Prescriptions: No Action mupirocin 2 % ointment 1 applic TOP TID Qty: 30 0RF (DME) Light pressure salma hose Qty: 1 0RF Dose Instruction: As directed Rx Instructions: As directed (DME) Donut Pillow Qty: 1 0RF Dose Instruction: As directed Rx Instructions: As directed (DME) Medium to high pressure socks Qty: 1 0RF Dose Instruction: As directed Rx Instructions: As directed nystatin 100,000 unit/gram cream 1 applic topical TID 14 Days Qty: 150 1RF insulin regular human [Humulin R Regular U-100 Insuln] 100 unit/mL solution See Rx Instructions SUBCUT TIDAC Qty: 10 12RF Dose Instruction: if blood sugar is <150 inject 0 units, 151-200 inject 5 units, 201-250 inject 10 units; >250 inject 15 units SUBCUT TIDAC; Label Comments: spouse states has not needed for a long time. Rx Instructions: if blood sugar is <150 inject 0 units, 151-200 inject 5 units, 201-250 inject 10 units; >250 inject 15 units SUBCUT TIDAC; (DME) Syringes: Ultra Fine Insulin Syringe w/Needle 0 .Route .MEDSUPPLY Qty: 100 3RF Dose Instruction: As directed Rx Instructions: As directed zinc oxide 20 % ointment 1 applictn TOP BID PRN (Reason: skin irritation) Qty: 56.7 0RF albuterol sulfate [ProAir HFA] 90 mcg/actuation HFA aerosol inhaler See Rx Instructions .ROUTE .COMPLEX Qty: 8.5 3RF Dose Instruction: INHALE 2 PUFFS BY MOUTH EVERY 6 HOURS NEEDED FOR SHORTNESS OF BREATH Rx Instructions: INHALE 2 PUFFS BY MOUTH EVERY 6 HOURS NEEDED FOR SHORTNESS OF BREATH OneTouch Verio test strips Strip See Rx Instructions .ROUTE .COMPLEX Qty: 300 11RF Dose Instruction: USE TO TEST BLOOD SUGAR UP TO FOUR TIMES DAILY Rx Instructions: USE TO TEST BLOOD SUGAR UP TO FOUR TIMES DAILY terbinafine HCl 1 % cream 1 applic topical BID Qty: 30 2RF mupirocin 2 % ointment 1 applic topical BID Qty: 15 1RF finasteride 5 mg tablet See Rx Instructions .ROUTE .COMPLEX Qty: 90 3RF Dose Instruction: TAKE 1 TABLET(5 MG) BY MOUTH EVERY DAY Rx Instructions: TAKE 1 TABLET(5 MG) BY MOUTH EVERY DAY triamcinolone acetonide 0.1 % cream See Rx Instructions .ROUTE .COMPLEX Qty: 30 0RF Dose Instruction: APPLY TOPICALLY TO THE AFFECTED AREA DAILY FOR ECZEMA Rx Instructions: APPLY TOPICALLY TO THE AFFECTED AREA DAILY FOR ECZEMA Lantus Solostar U-100 Insulin 100 unit/mL (3 mL) insulin pen See Rx Instructions .ROUTE .COMPLEX Qty: 30 11RF Dose Instruction: INJECT 40 UNITS UNDER THE SKIN IN THE MORNING AND 90 UNITS IN THE EVENING Rx Instructions: INJECT 40 UNITS UNDER THE SKIN IN THE MORNING AND 90 UNITS IN THE EVENING simvastatin 40 mg tablet See Rx Instructions .ROUTE .COMPLEX Qty: 90 2RF Dose Instruction: TAKE 1 TABLET BY MOUTH DAILY AT BEDTIME Rx Instructions: TAKE 1 TABLET BY MOUTH DAILY AT BEDTIME insulin lispro [Humalog KwikPen Insulin] 100 unit/mL insulin pen 5 unit SUBCUT DAILY Qty: 15 5RF Rx Instructions: at lunch quetiapine 25 mg tablet See Rx Instructions .ROUTE .COMPLEX Qty: 90 3RF Dose Instruction: TAKE 1/4 TABLET IN THE MORNING AND 1/2 TABLET AT NIGHT Rx Instructions: TAKE 1/4 TABLET IN THE MORNING AND 1/2 TABLET AT NIGHT cyclobenzaprine 10 mg tablet See Rx Instructions .ROUTE .COMPLEX Qty: 90 3RF Dose Instruction: TAKE 1 TABLET BY MOUTH AT BEDTIME NEEDED FOR MUSCLE SPASM Rx Instructions: TAKE 1 TABLET BY MOUTH AT BEDTIME NEEDED FOR MUSCLE SP[facility] Eliquis 2.5 mg tablet 2.5 mg PO QPM Qty: 90 3RF Eliquis 5 mg tablet 5 mg PO QAM Qty: 90 3RF tamsulosin 0.4 mg capsule See Rx Instructions .ROUTE .COMPLEX Qty: 180 3RF Dose Instruction: TAKE 1 CAPSULE(0.4 MG) BY MOUTH TWICE DAILY Rx Instructions: TAKE 1 CAPSULE(0.4 MG) BY MOUTH TWICE DAILY polyethylene glycol 3350 17 gram powder in packet See Rx Instructions .ROUTE .COMPLEX Qty: 30 6RF Dose Instruction: MIX AND DRINK 1 PACKET BY MOUTH DAILY Rx Instructions: MIX AND DRINK 1 PACKET BY MOUTH DAILY metoprolol succinate 25 mg tablet extended release 24 hr 25 mg PO DAILY Qty: 90 3RF potassium chloride 10 mEq capsule, extended release See Rx Instructions .ROUTE .COMPLEX Qty: 180 3RF Dose Instruction: TAKE 1 CAPSULE BY MOUTH TWICE DAILY Rx Instructions: TAKE 1 CAPSULE BY MOUTH TWICE DAILY (DME) pen needle, diabetic [BD Ultra-Fine Short Pen Needle] 31 gauge x 5/16 needle See Rx Instructions .ROUTE .COMPLEX Qty: 100 1RF Dose Instruction: USE TO INJECT INSULIN TWICE DAILY Rx Instructions: USE TO INJECT INSULIN TWICE DAILY torsemide 20 mg tablet See Rx Instructions .ROUTE .COMPLEX Qty: 362 0RF Dose Instruction: TAKE 3 TABLETS BY MOUTH EVERY DAY, INCREASE TO 4 TABLETS NEEDED FOR WORSENING SYMPTOMS Rx Instructions: TAKE 3 TABLETS BY MOUTH EVERY DAY, INCREASE TO 4 TABLETS NEEDED FOR WORSENING SYMPTOMS nitrofurantoin macrocrystal 100 mg capsule 100 mg PO BID Qty: 10 0RF Rx Instructions: must administer with a meal/food fluoxetine 20 mg capsule See Rx Instructions .ROUTE .COMPLEX Qty: 90 3RF Dose Instruction: TAKE 1 CAPSULE BY MOUTH DAILY Rx Instructions: TAKE 1 CAPSULE BY MOUTH DAILY hydrocodone-acetaminophen 5-325 mg tablet 1 tab PO Q6H Qty: 120 0RF nitroglycerin 0.4 mg tablet, sublingual 0.4 mg sublingual Q5M PRN (Reason: Chest Pain) Qty: 30 0RF Rx Instructions: do not exceed 3 doses per episode aspirin [Adult Aspirin Regimen] 81 mg tablet,delayed release (DR/EC) 81 mg PO DAILY fluconazole 50 mg tablet 50 mg PO DAILY Qty: 7 0RF sennosides [senna] 8.6 mg Tablet 25.8 mg PO Q12H docusate calcium 240 mg Capsule 240 mg PO QID Lancet: Device 1 st INJ QID magnesium citrate solution 150 ml PO BID PRN (Reason: constipation) Qty: 296 0RF meclizine 25 mg tablet 25 mg PO BID PRN (Reason: dizziness) Qty: 10 0RF Referrals: Lance Lyons DO [Primary Care Provider] - Visit Report Forms: Patient Portal/API
[2022-04-24] MEDS: SODIUM CHLORIDE 0.9% 1,000 ML 1000 ML IV (12:51)
[2022-04-24 12:54] LABS: Add Manual Diff / Slide Review NO; Basophils Absolute Auto 0 /uL (0-100); Basophils Percent Auto 0.4 % (0-2); Eosinophils Absolute Auto 200 /uL (0-450); Eosinophils Percent Auto 2.3 % (2-4); Hematocrit 40.5 % (41-53); Hemoglobin 13.9 g/dL (13.5-17.5); Lymphocytes Absolute Auto 2200 /uL (1100-4500); Lymphocytes Percent Auto 24.1 % (25-40); Mean Corpuscular HGB Conc 34.4 % (30-36); Mean Corpuscular Hemoglobin 28.8 PG (26-34); Mean Corpuscular Volume 83.8 fL (80-100); Monocytes Absolute Auto 700 /uL (0-900); Monocytes Percent Auto 7.3 % (3-14); Neutrophils Absolute Auto 6000 /uL (1500-7000); Neutrophils Percent Auto 65.9 % (50-75); Platelet Count 232 X10^3/uL (150-400); Red Blood Cell Count 4.84 X10^6/uL (4.5-5.9); Red Cell Distribution Width 14.8 % (11.6-14.8); White Blood Cell Count 9.2 X10^3/uL (4.5-11.0)
[2022-04-24 12:55] LABS: INR 1.2 (0.9-1.3)
[2022-04-24 12:58] LABS: PTT Partial Thromboplastin Tim 36 SECONDS (26-36)
[2022-04-24 12:59] LABS: Alanine Aminotransferase 21 IU/L (<50); Albumin 4.1 g/dL (3.5-5.0); Albumin Globulin Ratio 1.3 (1.0-2.8); Alkaline Phosphatase 57 U/L (38-126); Aspartate Aminotransferase 23 IU/L (17-59); BUN Creatinine Ratio 19.2 (6-22); Bilirubin Total 1.3 mg/dL (0.2-1.3); Blood Urea Nitrogen 23 mg/dL (9-20); Calcium 8.8 mg/dL (8.4-10.2); Carbon Dioxide 25 mmol/L (22-32); Chloride 101 mmol/L (98-107); Creatine Kinase 84 U/L (55-170); Estimated Glomerular Filt Rate > 60 mL/min (>60); Globulin 3.2 g/dL (1.7-4.1); Glucose 168 mg/dL (80-110); HEMOLYSIS 18 (0-50); Lipase 86 U/L (23-300); Potassium 4.2 mmol/L (3.4-5.1); Sodium 138 mmol/L (137-145); Total Protein 7.3 g/dL (6.3-8.2)
[2022-04-24 13:00] LABS: Lactate (Lactic Acid) 3.1 mmol/L (0.7-2.1)
[2022-04-24 13:08] LABS: NT-proBNP (BNP-Adult 18+) 801 pg/mL (<125)
[2022-04-24 13:11] LABS: Troponin I 0.016 ng/mL (0.01-0.034)
[2022-04-24 14:46] LABS: Reflexed Lactate in 2 Hours Y
--- NOTE | 2022-04-24 16:15 | PC.NURSE ---
late entry: 1530 ambulated patient 50ft. pt does not c/o dizziness, sob. steady gait and blood pressure maintained 105/68. pulse in the 70s, oxygen maintained in the mid90s. informed provider, plan for a redraw to check lactate level and pt can go home. patient and family educated on medications, not to take nitro per MD. if she thinks patient is having chest pain, then ASA, 4 81mg pills would be appropriate, but clarification if patient is actually having chest pain is needed. family verbalized understanding of instructions. no questions asked.
== END 2022-04-24 16:03 | disposition home or self-care (01) ==
PROVIDERS: Emergency Provider Emergency Medicine; Family Provider Family Medicine; PCP Family Medicine
DX: I95.1 Orthostatic hypotension (principal); S09.90XA Unspecified injury of head, initial encounter; W18.30XA Fall on same level, unspecified, initial encounter; R07.9 Chest pain, unspecified; Z79.899 Other long term (current) drug therapy
CPT/HCPCS: 36415; 70450; 71045; 72125; 80053; 81003; 82550; 83605; 83690; 83880; 84484; 85025; 85610; 85730; 93005; 96360; 96361; 99284

== ENCOUNTER 2022-05-21 21:05 | Observation (INO) | payer MEDICARE, MEDICAID, SELFPAY ==
[2021-06-02 00:48] VITALS: BMI 38.7
[2022-05-21] VITALS (12 sets, daily range): BP systolic 74–133; BP diastolic 49–87; PULSE 119–152; RESP 23–49; TEMP 36; O2SAT 92–98; BMI 38.9
--- NOTE | 2022-05-21 21:09 | ED.SOB ---
HPI - SOB/Dyspnea General Chief Complaint: Shortness of Breath/Dyspnea Stated Complaint: SOB, Congestive heart failure Time Seen by Provider: 05/21/22 21:08 History of Present Illness HPI Narrative: Patient is a 71-year-old male history of hemorrhagic stroke with left-sided craniotomy with residual difficulty communicating, also atrial fibrillation presents with family in the chief complaint of worsening shortness of breath over the course of the past 24 hours or so. He is not been taking his diuretic for the past few weeks or so. He becomes profoundly short of breath with minimal exertion. He has had no fever or chills. There is no report of headache, runny nose or sore throat. He is had no chest pain. He is had no vomiting, diarrhea or abdominal pain. He is had no dysuria, frequency or urgency. They deny weight gain or swelling in legs Related Data Home Medications Medication Instructions Recorded Confirmed Lancet: Device 1 st INJ QID 02/23/19 02/20/22 docusate calcium 240 mg capsule 240 mg PO QID 02/23/19 02/20/22 sennosides 8.6 mg tablet (senna) 25.8 mg PO Q12H 02/23/19 02/20/22 aspirin 81 mg tablet,delayed 81 mg PO DAILY 06/07/19 02/20/22 release (Adult Aspirin Regimen) Previous Rx's Medication Instructions Recorded insulin regular human 100 unit/mL See Rx Instructions SUBCUT TIDAC 11/05/17 injection solution (Humulin R #10 mL Regular U-100 Insulin) Syringes: Ultra Fine Insulin #100 ea 02/14/18 Syringe w/Needle Light pressure salma hose #1 ea 07/05/18 Donut Pillow #1 ea 07/06/18 zinc oxide 20 % topical ointment 1 applictn topical BID PRN skin 07/07/18 irritation #56.7 grams Medium to high pressure socks #1 ea 09/06/18 magnesium citrate 150 ml PO BID PRN constipation 02/23/19 #296 mL ProAir HFA 90 mcg/actuation See Rx Instructions .Route 10/16/19 aerosol inhaler (albuterol sulfate) .COMPLEX #8.5 grams mupirocin 2 % topical ointment 1 applic topical TID #30 grams 02/24/20 nystatin 100,000 unit/gram topical 1 applic topical TID 2 weeks #150 10/02/21 cream grams terbinafine HCl 1 % topical cream 1 applic topical BID #30 grams 04/09/21 fluconazole 50 mg tablet 50 mg PO DAILY #7 tabs 05/09/21 mupirocin 2 % topical ointment 1 applic topical BID apply 05/14/21 ointment to wounds on R leg #15 grams finasteride 5 mg tablet See Rx Instructions .Route 08/04/21 .COMPLEX #90 tabs triamcinolone acetonide 0.1 % See Rx Instructions .Route 08/07/21 topical cream .COMPLEX #30 grams simvastatin 40 mg tablet See Rx Instructions .Route 09/05/21 .COMPLEX #90 tabs insulin lispro 100 unit/mL 5 unit (0.05 mL) SUBCUT DAILY #15 09/08/21 subcutaneous pen (Humalog KwikPen mL (U-100) Insulin) quetiapine 25 mg tablet See Rx Instructions .Route 09/26/21 .COMPLEX #90 tabs cyclobenzaprine 10 mg tablet See Rx Instructions .Route 09/30/21 .COMPLEX #90 tabs apixaban 2.5 mg tablet (Eliquis) 2.5 mg PO QPM #90 tabs 10/27/21 apixaban 5 mg tablet (Eliquis) 5 mg PO QAM #90 tabs 10/27/21 tamsulosin 0.4 mg capsule See Rx Instructions .Route 12/05/21 .COMPLEX #180 caps polyethylene glycol 3350 17 gram See Rx Instructions .Route 12/12/21 oral powder packet .COMPLEX #30 ea metoprolol succinate 25 mg 25 mg PO DAILY #90 tabs 01/08/22 tablet,extended release 24 hr potassium chloride 10 mEq See Rx Instructions .Route 02/02/22 capsule,extended release .COMPLEX #180 caps meclizine 25 mg tablet 25 mg PO BID PRN dizziness #10 tabs 02/27/22 pen needle, diabetic 31 gauge x #100 ea 03/03/22 5/16 (BD Ultra-Fine Short Pen Needle) torsemide 20 mg tablet See Rx Instructions .Route 03/09/22 .COMPLEX #362 tabs nitrofurantoin macrocrystal 100 mg 100 mg PO BID #10 caps 03/16/22 capsule fluoxetine 20 mg capsule See Rx Instructions .Route 03/26/22 .COMPLEX #90 caps nitroglycerin 0.4 mg sublingual 0.4 mg sublingual Q5M PRN Chest 04/06/22 tablet Pain #30 tabs Lantus Solostar U-100 Insulin 100 See Rx Instructions .Route 04/27/22 unit/mL (3 mL) subcutaneous pen .COMPLEX #30 mL (insulin glargine) blood sugar diagnostic (OneTouch See Rx Instructions .Route 04/28/22 Verio test strips) .COMPLEX #300 strips hydrocodone 5 mg-acetaminophen 325 1 tab PO Q6H #120 tabs 05/07/22 mg tablet Allergies Allergy/AdvReac Type Severity Reaction Status Date / Time triamcinolone Allergy Mild Hives Verified 02/27/22 11:29 Review of Systems Review of Systems Narrative: GENERAL: See HPI. HEENT: Denies sinus pain, ear pain, sore throat, difficulty swallowing, dizziness. RESPIRATORY: See HPI CARDIOVASCULAR: See HPI GASTROINTESTINAL: Denies nausea, vomiting, abdominal pain, diarrhea, constipation, melena. : Denies dysuria, frequency, incontinence, hematuria, urinary retention. MUSCULOSKELETAL: denies weakness, joint pain, or bony pain SKIN: Denies rash, skin lesions, or other NEUROLOGIC: Denies weakness, headache, numbness, change in speech, confusion, seizures, incoordination. PSYCHIATRIC: No concerning psychosocial issues. 12 point review of systems is negative except for those stated above Patient History Medical History Actinic keratoses Acute CHF Atrial fibrillation (02/21/15) Benign prostatic hyperplasia BPH (benign prostatic hyperplasia) Cardiomyopathy (02/21/15) Cataracts, bilateral (07/26/17) CHF (congestive heart failure) Chronic neck pain Coronary artery disease Diabetes Hematuria (~2017) History of CVA (cerebrovascular accident) (07/12/16) Hyperlipidemia Hypertension Hypotension Lower extremity edema Peripheral vascular disease PVD (peripheral vascular disease) Rash Renal failure Status post myocardial infarction (1994) Suspicious nevus Systolic CHF Surgical History History of cranioplasty (10/30/16) History of surgery on arm History of vasectomy S/P TURP (10/19/13) Status post craniectomy (07/12/16) Family History Mother Age: 92 Dementia Father Cancer Social History household members: spouse Smoking Status: Former smoker second hand exposure: No alcohol intake: never substance use type: does not use Smoking Status: Former smoker alcohol intake frequency: holidays/special occasions only Substance Use Type: does not use Exam Narrative Exam Narrative: GENERAL: [71] year old patient appears stated age. Well-developed patient, in obvious respiratory distress, minimal exertion results in significant tachypnea and work of breathing HEAD: Atraumatic. Normocephalic. EYES: Pupils equal round and reactive. Extraocular motions intact. No scleral icterus. No injection or drainage. ENT: Nose without bleeding, purulent drainage. Throat without erythema, tonsillar hypertrophy or exudate. Airway patent. NECK: Trachea midline. Non tender CARDIOVASCULAR: Tachycardic and irregular rhythm without murmurs, gallops, or rubs. RESPIRATORY: Increased work of breathing but no obvious abnormal lung sounds such as rales, rhonchi or wheeze GASTROINTESTINAL: Abdomen soft, non-tender, nondistended. EXTREMITIES: No edema or joint tenderness. BACK: Nontender without deformity or crepitance. No flank tenderness. NEURO: Cranial nerves 2-12 grossly intact, expressive aphasia baseline per family at the bedside. SKIN: No rash or erythema of visible areas Initial Vital Signs Initial Vital Signs: Vital Signs Pulse Rate 151 H 05/21/22 21:13 Respiratory Rate 32 H 05/21/22 21:13 Pulse Oximetry 93 05/21/22 21:13 Procedures Cardioversion Consent Signed: Yes Indication: unstable rapid atrial fib Number of attempts (shocks): 2 Joules used: 120 and 150 Cardiac rhythm post-cardioversion: NSR Procedural Sedation Consent signed: Yes Time out performed: Yes Indication: cardioversion ASA Class: III Mallampati Airway Classification: Class III Preparation: property assessment monitor applied, pulse oximeter, capnometry used, supplemental O2 applied, suction/airway equipment at bedside and IV secured IV Propofol dose (mg): 70 Intraservice time/total sedation time (min): 10 Patient Tolerated Procedure: Well Complications: hypoxia Interventions: Airway repositioned and Assist by BVM Course Orders Ordered: ED Orders 05/21/22 21:12 Chest [XR chest 1V] Stat EKG-12 Lead Stat 05/21/22 21:26 Complete Blood Count AUTO DIFF Stat Comprehensive Metabolic Panel Stat D Dimer Stat Lactate (Lactic Acid) Stat Magnesium Stat NT-proBNP (BNP-Adult 18+) Stat Troponin & CK Cardiac Panel Stat 05/21/22 21:32 Covid-19 + FLU A/B + RSV - PCR Stat 05/21/22 21:49 CT angio chest PE protocol Stat 05/21/22 22:24 Blood Culture Stat Acetaminophen (Acetaminophen 325 Mg Tablet) 650 mg PO Q6H PRN PRN Reason: Fever/Mild Pain (1-3) Albuterol/Ipratropium (Albuterol/Ipratropium 3 Ml Ampul) 3 ml INH ODO1ALRD SHAUN Dextrose (Dextrose 50 % In Water 25 Gm/50 Ml Syringe) 25 gm IV PRN PRN PRN Reason: Hypoglycemia Sodium Chloride (Normal Saline 0.9%) 2,259 mls @ 753 mls/hr 30 ml/kg infuse over 3 hr (2259 ml) IV NOW ONE Stop: 05/22/22 01:57 Last Admin: 05/21/22 23:24 Dose: 753 mls/hr Documented By: RL Furosemide 100 mg/ Sodium (Chloride) 60 mls @ 3 mls/hr IV CONT SHAUN Ceftriaxone Sodium 1,000 mg/ (Sodium Chloride) 100 mls @ 200 mls/hr IV Q24H SHAUN Azithromycin 500 mg/ Dextrose 250 mls @ 250 mls/hr IV Q24H SHAUN Insulin Human Lispro (Insulin Lispro 100 Unit/Ml 3ml Vial) 0 unit SUBCUT ACHS SHAUN; Protocol Naloxone HCl (Naloxone 0.4 Mg/Ml Vial) 0.2 mg IV Q2MIN PRN PRN Reason: Opiate Reversal Ondansetron HCl (Ondansetron 4 Mg/2 Ml Inj) 4 mg IV Q8HR PRN PRN Reason: Nausea And Vomiting Sennosides (Sennosides 8.6 Mg Tablet) 17.2 mg PO BEDTIME SHAUN Discontinued Medications Albuterol/Ipratropium (Albuterol/Ipratropium 3 Ml Ampul) 3 ml INH NOW ONE Stop: 05/21/22 21:25 Last Admin: 05/21/22 23:30 Dose: 3 ml Documented By: QUINN Furosemide (Furosemide 40 Mg/4 Ml Vial) 40 mg IV NOW ONE Stop: 05/21/22 22:59 Last Admin: 05/21/22 23:16 Dose: 40 mg Documented By: HINA Levofloxacin (Levaquin) 750 mg in 150 mls @ 100 mls/hr IV NOW ONE Stop: 05/21/22 23:20 Last Infusion: 05/22/22 00:00 Dose: 0 mls/hr Documented By: Admin: 05/21/22 22:28 Dose: 100 mls/hr Documented By: HINA Ceftriaxone Sodium 2,000 mg/ (Sodium Chloride) 100 mls @ 200 mls/hr IV NOW ONE Stop: 05/22/22 00:50 Propofol (Propofol 200 Mg/20 Ml Vial) 100 mg IV NOW ONE Stop: 05/22/22 00:04 Last Admin: 05/22/22 00:35 Dose: 70 mg Documented By: VICKI Vancomycin HCl (Vancomycin Per Pharmacy) 1 request MISC NOW ONE Stop: 05/22/22 00:50 Reevaluation(s) Reevaluation #1: Patient becoming increasingly short of breath and now instead of normal sign of he has converted into a rapid AFib and becoming fidgety. I had a lengthy discussion with the patient and his and stated though this is risk year than many cardioversions given his underlying sepsis and low reserve he is clearly not tolerating his rapid AFib. signed consent Reevaluation #2: Patient has significant improvement after cardioversion Vital Signs Vital signs: Vital Signs - 8 hr 05/21/22 21:14 05/21/22 21:13 05/21/22 21:14 Temperature 96.8 F L Pulse Rate 150 H 151 H 150 H Respiratory Rate 28 H 32 H 31 H Blood Pressure 133/87 Pulse Oximetry 94 93 94 Oxygen Delivery Method Room Air 05/21/22 21:14 05/21/22 21:30 05/21/22 21:31 Temperature Pulse Rate 152 H 152 H Respiratory Rate 41 H 49 H Blood Pressure 133/87 Pulse Oximetry 98 96 Oxygen Delivery Method 05/21/22 21:31 05/21/22 22:10 05/21/22 22:26 Temperature Pulse Rate 127 H 129 H Respiratory Rate 23 28 H Blood Pressure 113/83 Pulse Oximetry 92 95 Oxygen Delivery Method 05/21/22 22:26 05/21/22 22:30 05/21/22 22:30 Temperature Pulse Rate 119 H Respiratory Rate 28 H Blood Pressure 111/66 98/62 Pulse Oximetry 93 Oxygen Delivery Method 05/21/22 22:45 05/21/22 22:45 05/21/22 23:00 Temperature Pulse Rate 133 H Respiratory Rate 39 H Blood Pressure 100/65 103/62 Pulse Oximetry 94 Oxygen Delivery Method 05/21/22 23:00 05/21/22 23:16 05/21/22 23:16 Temperature Pulse Rate 131 H 144 H Respiratory Rate 41 H 32 H Blood Pressure 74/49 L Pulse Oximetry 95 96 Oxygen Delivery Method 05/21/22 23:18 05/21/22 23:18 Temperature Pulse Rate 139 H Respiratory Rate 36 H Blood Pressure 110/81 Pulse Oximetry 94 Oxygen Delivery Method MDM - SOB/Dyspnea Lab Data Result diagrams: 05/21/22 21:26 05/21/22 21:26 Labs: Lab Results 05/21/22 05/21/22 05/21/22 Range/Units 21:26 21:26 21:26 WBC 9.1 (4.5-11.0) X10^3/uL RBC 4.48 L (4.5-5.9) X10^6/uL Hgb 13.0 L (13.5-17.5) g/dL Hct 38.4 L (41-53) % MCV 85.8 (80-100) fL MCH 29.0 (26-34) PG MCHC 33.9 (30-36) % RDW 15.6 H (11.6-14.8) % Plt Count 233 (150-400) X10^3/uL Neut % (Auto) 66.6 (50-75) % Lymph % (Auto) 22.0 L (25-40) % [place] % (Auto) 8.4 (3-14) % Eos % (Auto) 2.4 (2-4) % Baso % (Auto) 0.6 (0-2) % Neut # (Auto) 6100 (4502-1169) /uL Lymph # (Auto) 2000 (4936-3503) /uL [place] # (Auto) 800 (0-900) /uL Eos # (Auto) 200 (0-450) /uL Baso # (Auto) 100 (0-100) /uL D-Dimer 966 H (<500) ng/ml Sodium 137 (137-145) mmol/L Potassium 4.5 (3.4-5.1) mmol/L Chloride 103 (98-107) mmol/L Carbon Dioxide 20 L (22-32) mmol/L BUN 24 H (9-20) mg/dL Creatinine 1.39 H (0.66-1.25) mg/dL Estimated GFR 54 L (>60) mL/min BUN/Creatinine Ratio 17.3 (6-22) Glucose 211 H (80-110) mg/dL Lactate (0.7-2.1) mmol/L Calcium 8.6 (8.4-10.2) mg/dL Magnesium 2.1 (1.6-2.3) mg/dL Total Bilirubin 1.3 (0.2-1.3) mg/dL AST 18 (17-59) IU/L ALT 19 (<50) IU/L Alkaline Phosphatase 69 (38-126) U/L Total Creatine Kinase 77 (55-170) U/L CK-MB (CK-2) TNP CK-MB (CK-2) Rel Index TNP Troponin I 0.037 H (0.01-0.034) ng/mL NT-Pro-B Natriuret Pep 1540 H (<125) pg/mL Total Protein 7.1 (6.3-8.2) g/dL Albumin 3.8 (3.5-5.0) g/dL Globulin 3.3 (1.7-4.1) g/dL Albumin/Globulin Ratio 1.2 (1.0-2.8) SARS-CoV-2 (PCR) (Negative) Influenza A (RT-PCR) (NEGATIVE) Influenza B (RT-PCR) (NEGATIVE) RSV (PCR) (Negative) 05/21/22 05/21/22 Range/Units 21:26 21:32 WBC (4.5-11.0) X10^3/uL RBC (4.5-5.9) X10^6/uL Hgb (13.5-17.5) g/dL Hct (41-53) % MCV (80-100) fL MCH (26-34) PG MCHC (30-36) % RDW (11.6-14.8) % Plt Count (150-400) X10^3/uL Neut % (Auto) (50-75) % Lymph % (Auto) (25-40) % [place] % (Auto) (3-14) % Eos % (Auto) (2-4) % Baso % (Auto) (0-2) % Neut # (Auto) (2048-0526) /uL Lymph # (Auto) (3138-7283) /uL [place] # (Auto) (0-900) /uL Eos # (Auto) (0-450) /uL Baso # (Auto) (0-100) /uL D-Dimer (<500) ng/ml Sodium (137-145) mmol/L Potassium (3.4-5.1) mmol/L Chloride (98-107) mmol/L Carbon Dioxide (22-32) mmol/L BUN (9-20) mg/dL Creatinine (0.66-1.25) mg/dL Estimated GFR (>60) mL/min BUN/Creatinine Ratio (6-22) Glucose (80-110) mg/dL Lactate 2.4 H (0.7-2.1) mmol/L Calcium (8.4-10.2) mg/dL Magnesium (1.6-2.3) mg/dL Total Bilirubin (0.2-1.3) mg/dL AST (17-59) IU/L ALT (<50) IU/L Alkaline Phosphatase (38-126) U/L Total Creatine Kinase (55-170) U/L CK-MB (CK-2) CK-MB (CK-2) Rel Index Troponin I (0.01-0.034) ng/mL NT-Pro-B Natriuret Pep (<125) pg/mL Total Protein (6.3-8.2) g/dL Albumin (3.5-5.0) g/dL Globulin (1.7-4.1) g/dL Albumin/Globulin Ratio (1.0-2.8) SARS-CoV-2 (PCR) Negative (Negative) Influenza A (RT-PCR) Flu a negative (NEGATIVE) Influenza B (RT-PCR) Flu b negative (NEGATIVE) RSV (PCR) Negative (Negative) Imaging Data Chest x-ray: Radiologist's Impression: Jackie Hurley Jr?(Dawit)??71??M??1950 ? Allergy/Adv: triamcinolone (More??) Close Chest CTA (Signed) Robert Wayne - 05/21/22 Chest X-Ray (Signed) WayneRobert - 05/21/[address] (Signed) Tristan Alexis - 04/24/22 Chest X-Ray (Signed) Dudley Bowman - 04/24/[address] (Signed) Tristan Alexis - 04/24/22 EKG Rpt. 04/07/22 Chest X-Ray (Signed) Jaiden Jasso - 04/07/[address] (Signed) Russell Casanova - 02/27/[address] (Signed) PembineRussell mejias - 11/15/[address] (Signed) Russell Casanova - 11/15/21 Telemetry Strips 06/02/21 Chest X-Ray (Signed) Dionicio Rogel - 06/01/21 Abdomen/Pelvis CT (Signed) Jose Stoddard - 01/13/21 DI Result CC 10/13/20 Chest/Abdomen/Pelvis CTA (Signed) Steven Yu - 10/12/20 Chest X-Ray (Signed) Rashmi Jeffries - 10/12/20 EKG Rpt. 10/12/20 Chest X-Ray (Signed) Rosenda Angulo - 10/01/20 Tibia/Fibula X-Ray (Signed) Russell Casanova - 03/02/20 Chest X-Ray (Signed) Jeffry Mejia - 06/07/19 Chest/Abdomen X-ray (Signed) Frantz Montgomery - 02/23/[address] (Signed) Reny Harley - 08/04/[address] (Signed) Reny Harley - 08/04/18 Echocardiogram Ultrasound (Signed) Inez Iyer - 12/24/17 Lumbar Spine X-Ray (Signed) Quinn Stein - 12/20/17 Launch?[address] [address] XRay Report Signed Patient: Jackie Hurley Jr MR#: [id number] : 1950 Acct:[id number] Age/Sex: 71 / M Date of Service: 05/21/22 Loc: ED Accession Number: [id number] ?? Procedure: XR chest 1V Ordering Provider: Luis Caldwell D.O. PROCEDURE:? XR CHEST 1V ? INDICATIONS:? SOB ? TECHNIQUE:? One view of the chest was acquired.? ? COMPARISON:? [facility], CR, XR CHEST 1V, 04/24/2022, 12:41. ? FINDINGS:? ? Surgical changes and devices:? None.? ? Lungs and pleura:? There are patchy bilateral airspace opacities with a basilar predominance.? These include confluent opacities medially within the lung bases.? No definite pleural effusions or pneumothorax. ? Mediastinum:? Mediastinal contours are unchanged.? Heart size is mildly enlarged. ? Bones and chest wall:? No suspicious bony lesions.? Overlying soft tissues appear unremarkable.? ? IMPRESSION:? ? 1. Patchy bilateral airspace opacities with a basilar predominance are nonspecific but suspicious for pneumonia. ? 2. Confluent opacities medially in the lung bases may also represent consolidation and pneumonia versus atelectasis. ? ? Dictated by: Robert Wayne M.D. on 05/21/2022 at 22:03 ? ? Approved by: Robert Wayne M.D. on 05/21/2022 at 22:10 CT scan - chest: Radiologist's Impression: Jackie Hurley Jr?(Dawit)??71??M??1950 ? Allergy/Adv: triamcinolone (More??) Close Chest CTA (Signed) Robert Wayne - 05/21/22 Chest X-Ray (Signed) Robert Wayne - 05/21/[address] (Signed) Tristan Alexis - 04/24/22 Chest X-Ray (Signed) Dudley Bowman - 04/24/[address] (Signed) Tristan Alexis - 04/24/22 EKG Rpt. 04/07/22 Chest X-Ray (Signed) Jaiden Jasso - 04/07/[address] (Signed) Russell Casanova - 02/27/[address] (Signed) Russell Casanova - 11/15/[address] (Signed) Russell Casanova - 11/15/21 Telemetry Strips 06/02/21 Chest X-Ray (Signed) Dionicio Rogel - 06/01/21 Abdomen/Pelvis CT (Signed) ArlynJose - 01/13/21 DI Result CC 10/13/20 Chest/Abdomen/Pelvis CTA (Signed) Steven Yu - 10/12/20 Chest X-Ray (Signed) Rashmi Jeffries - 10/12/20 EKG Rpt. 10/12/20 Chest X-Ray (Signed) Rosenda Angulo - 10/01/20 Tibia/Fibula X-Ray (Signed) Hanna Casanovae - 03/02/20 Chest X-Ray (Signed) Crescencio Mejiawn - 06/07/19 Chest/Abdomen X-ray (Signed) Frantz Montgomery - 02/23/[address] (Signed) Reny Harley - 08/04/[address] (Signed) Reny Harley - 08/04/18 Echocardiogram Ultrasound (Signed) Inez Iyer - 12/24/17 Lumbar Spine X-Ray (Signed) Quinn Stein - 12/20/17 Launch?[place] [address] CT Scan Report Signed Patient: Jackie Hurley Jr MR#: [id number] : 1950 Acct:[id number] Age/Sex: 71 / M Date of Service: 05/21/22 Loc: Accession Number: [id number] ?? Procedure: CT angio chest PE protocol Ordering Provider: Luis Caldwell D.O. PROCEDURE:? CT ANGIO CHEST PE PROTOCOL ? INDICATIONS:? SOB, tachycardia, critical Dimer ? TECHNIQUE:? After the administration of intravenous contrast, 2 mm thick sections acquired from the pulmonary apices to the posterior costophrenic angles.? 3-dimensional maximum intensity projection (MIP) coronal and sagittal reformats were then acquired through the thorax.? For radiation dose reduction, the following was used:? automated exposure control, adjustment of mA and/or kV according to patient size.? ? COMPARISON:? None. ? FINDINGS:? Image quality:? There is mild motion artifact slightly limiting evaluation. ? Pulmonary arteries:? Pulmonary arteries demonstrate no intraluminal filling defects to suggest central pulmonary embolism.? There is mild enlargement of the pulmonary arteries, with the main pulmonary artery measuring up to 3.5 cm suggestive of pulmonary arterial hypertension.? ? Lower Neck: No lymphadenopathy by size criteria. Thyroid:? Visualized thyroid demonstrates no discrete nodules. Axillae: No lymphadenopathy by size criteria. Chest Wall:? Unremarkable.? Bones: Visualized osseous structures demonstrate no suspicious lesions. ? Lungs and Airways:? There is mild septal thickening with indistinct diffuse ground-glass opacities bilaterally consistent with pulmonary edema.? In addition, there are scattered nodular ground-glass opacities bilaterally with indistinct margins suggestive of atypical pneumonia.? The trachea and central airways are patent. Pleura: No pneumothorax.? There are small bilateral pleural effusions with associated compressive atelectasis, right greater than left.? ? Heart: Heart size is enlarged.? There is a minimal pericardial effusion anteriorly. Thoracic Vessels: The thoracic aorta is normal in size.? Mediastinum and Maeve:? There are mildly enlarged confluent subcarinal and azygoesophageal mediastinal lymph nodes which are nonspecific but likely reactive.? Esophagus: No wall thickening. No hiatal hernia. ? Abdomen:? Visualized upper abdominal solid organs appear normal in the early arterial phase of enhancement.? ? IMPRESSION:? ? 1. No evidence of pulmonary embolism. ? 2. Cardiomegaly with pulmonary edema and bilateral small pleural effusions compatible with congestive heart failure. ? 3. Scattered ground-glass nodules with indistinct margins are nonspecific but likely represent atypical pneumonia.? The differential includes other infectious or inflammatory processes.? ? Dictated by: Robert Wayne M.D. on 05/21/2022 at 22:49 ? ? Approved by: Robert Wayne M.D. on 05/21/2022 at 23:05 ? Discharge Plan Departure Patient Disposition: Admitted as Observation Clinical Impression: Sepsis, CHF (congestive heart failure), Pneumonia, Atrial fibrillation with RVR Admit Date/Time: 05/21/22 23:28 Admit Provider: Sara Larios
--- NOTE | 2022-05-21 21:12 | DI.RAD.S_ITS ---
PROCEDURE: XR CHEST 1V INDICATIONS: SOB TECHNIQUE: One view of the chest was acquired. COMPARISON: [facility], CR, XR CHEST 1V, 04/24/2022, 12:41. FINDINGS: Surgical changes and devices: None. Lungs and pleura: There are patchy bilateral airspace opacities with a basilar predominance. These include confluent opacities medially within the lung bases. No definite pleural effusions or pneumothorax. Mediastinum: Mediastinal contours are unchanged. Heart size is mildly enlarged. Bones and chest wall: No suspicious bony lesions. Overlying soft tissues appear unremarkable. IMPRESSION: 1. Patchy bilateral airspace opacities with a basilar predominance are nonspecific but suspicious for pneumonia. 2. Confluent opacities medially in the lung bases may also represent consolidation and pneumonia versus atelectasis. Dictated by: Robert Wayne M.D. on 05/21/2022 at 22:03 Approved by: Robert Wayne M.D. on 05/21/2022 at 22:10
[2022-05-21 21:47] LABS: D Dimer 966 ng/ml (<500)
[2022-05-21 21:49] LABS: Add Manual Diff / Slide Review NO; Alanine Aminotransferase 19 IU/L (<50); Albumin 3.8 g/dL (3.5-5.0); Albumin Globulin Ratio 1.2 (1.0-2.8); Alkaline Phosphatase 69 U/L (38-126); Aspartate Aminotransferase 18 IU/L (17-59); BUN Creatinine Ratio 17.3 (6-22); Basophils Absolute Auto 100 /uL (0-100); Basophils Percent Auto 0.6 % (0-2); Bilirubin Total 1.3 mg/dL (0.2-1.3); Blood Urea Nitrogen 24 mg/dL (9-20); Calcium 8.6 mg/dL (8.4-10.2); Carbon Dioxide 20 mmol/L (22-32); Chloride 103 mmol/L (98-107); Creatine Kinase 77 U/L (55-170); Eosinophils Absolute Auto 200 /uL (0-450); Eosinophils Percent Auto 2.4 % (2-4); Estimated Glomerular Filt Rate 54 mL/min (>60); Globulin 3.3 g/dL (1.7-4.1); Glucose 211 mg/dL (80-110); HEMOLYSIS < 15 (0-50); Hematocrit 38.4 % (41-53); Lymphocytes Absolute Auto 2000 /uL (1100-4500); Magnesium 2.1 mg/dL (1.6-2.3); Mean Corpuscular HGB Conc 33.9 % (30-36); Mean Corpuscular Volume 85.8 fL (80-100); Monocytes Absolute Auto 800 /uL (0-900); Monocytes Percent Auto 8.4 % (3-14); Neutrophils Absolute Auto 6100 /uL (1500-7000); Neutrophils Percent Auto 66.6 % (50-75); Platelet Count 233 X10^3/uL (150-400); Potassium 4.5 mmol/L (3.4-5.1); Red Blood Cell Count 4.48 X10^6/uL (4.5-5.9); Red Cell Distribution Width 15.6 % (11.6-14.8); Sodium 137 mmol/L (137-145); Total Protein 7.1 g/dL (6.3-8.2); White Blood Cell Count 9.1 X10^3/uL (4.5-11.0)
--- NOTE | 2022-05-21 21:49 | DI.CT.S_ITS ---
PROCEDURE: CT ANGIO CHEST PE PROTOCOL INDICATIONS: SOB, tachycardia, critical Dimer TECHNIQUE: After the administration of intravenous contrast, 2 mm thick sections acquired from the pulmonary apices to the posterior costophrenic angles. 3-dimensional maximum intensity projection (MIP) coronal and sagittal reformats were then acquired through the thorax. For radiation dose reduction, the following was used: automated exposure control, adjustment of mA and/or kV according to patient size. COMPARISON: None. FINDINGS: Image quality: There is mild motion artifact slightly limiting evaluation. Pulmonary arteries: Pulmonary arteries demonstrate no intraluminal filling defects to suggest central pulmonary embolism. There is mild enlargement of the pulmonary arteries, with the main pulmonary artery measuring up to 3.5 cm suggestive of pulmonary arterial hypertension. Lower Neck: No lymphadenopathy by size criteria. Thyroid: Visualized thyroid demonstrates no discrete nodules. Axillae: No lymphadenopathy by size criteria. Chest Wall: Unremarkable. Bones: Visualized osseous structures demonstrate no suspicious lesions. Lungs and Airways: There is mild septal thickening with indistinct diffuse ground-glass opacities bilaterally consistent with pulmonary edema. In addition, there are scattered nodular ground-glass opacities bilaterally with indistinct margins suggestive of atypical pneumonia. The trachea and central airways are patent. Pleura: No pneumothorax. There are small bilateral pleural effusions with associated compressive atelectasis, right greater than left. Heart: Heart size is enlarged. There is a minimal pericardial effusion anteriorly. Thoracic Vessels: The thoracic aorta is normal in size. Mediastinum and Maeve: There are mildly enlarged confluent subcarinal and azygoesophageal mediastinal lymph nodes which are nonspecific but likely reactive. Esophagus: No wall thickening. No hiatal hernia. Abdomen: Visualized upper abdominal solid organs appear normal in the early arterial phase of enhancement. IMPRESSION: 1. No evidence of pulmonary embolism. 2. Cardiomegaly with pulmonary edema and bilateral small pleural effusions compatible with congestive heart failure. 3. Scattered ground-glass nodules with indistinct margins are nonspecific but likely represent atypical pneumonia. The differential includes other infectious or inflammatory processes. Dictated by: Robert Wayne M.D. on 05/21/2022 at 22:49 Approved by: Robert Wayne M.D. on 05/21/2022 at 23:05
[2022-05-21 21:50] LABS: Lactate (Lactic Acid) 2.4 mmol/L (0.7-2.1)
[2022-05-21 22:01] LABS: NT-proBNP (BNP-Adult 18+) 1540 pg/mL (<125); Troponin I 0.037 ng/mL (0.01-0.034)
[2022-05-21 22:13] LABS: Influenza A - CEPHEID Flu A NEGATIVE (NEGATIVE); Influenza B - CEPHEID Flu B NEGATIVE (NEGATIVE); Respiratory Syncytial Virus Negative (Negative)
[2022-05-21 22:16] LABS: COVID-19 CEPHEID 4-PLEX PCR Negative (Negative)
[2022-05-21] MEDS: levoFLOXacin 750 MG/150 ML PIGGYBACK 100 MG IV (22:28)
[2022-05-21] MEDS: FUROSEMIDE 40 MG/4 ML VIAL IV (23:16)
[2022-05-21] MEDS: SODIUM CHLORIDE 0.9% 2,259 ML 753 ML IV (23:24)
[2022-05-21] MEDS: ALBUTEROL/IPRATROPIUM 3 ML AMPUL INH (23:30)
[2022-05-21 23:39] LABS: Reflexed Lactate in 2 Hours Y
--- NOTE | 2022-05-21 23:55 | DI.ECHO.S_ITS ---
[facility] +---------+ : : [address] : [place] : : : : [id number] : : : : Phone: [phone]+ Echocardiogram Report + + :Name: MECCA MOONEY Study Date: 05/22/2022 Height: 71 in : :[facility] ReadingLocation: Weight: 279 lb : : Gender: Male BSA: 2.4 m2 : :: 1950 Age: 71 yrs BP: 112/66 mmHg: :Reason For Study: Congestive Heart Failure : :Ordering Physician: VIRAJ, : :TAMIA Performed By: Nuno Benjamin : :Referring: TAMIA CALI : + + Interpretation Summary The left ventricle is severely dilated. Left ventricular systolic function is severely reduced. The ejection fraction is estimated to be 20-25%. LVEF has decreased since prior study. There is mild to moderate global hypokinesis of the left ventricle. But, the inferior, septum and part of apex are severely hypokinetic to akinetic. Diastolic function could not be accurately assessed due to unobtainable data. The right ventricle is grossly normal size. Right ventricular systolic function is borderline reduced. Pulmonary artery pressures cannot be estimated because of the lack of a measurable TR jet velocity. The left atrium is severely dilated. Right atrial size is normal. There is moderate mitral regurgitation. There is no other significant valvular heart disease. The IVC is dilated (diameter is greater than 2.1 cm) and it collapses less than 50% with a sniff. This suggests a high right atrial pressure of 15 mm Hg. Procedure: A two-dimensional transthoracic echocardiogram with color flow and Doppler was performed. The study quality was technically adequate. Comparison is made with the echocardiogram of 12/24/2017. Left Ventricle: The left ventricle is severely dilated. Left ventricular systolic function is severely reduced. The ejection fraction is estimated to be 20-25%. There is mild to moderate global hypokinesis of the left ventricle. But, the inferior, septum and part of apex are severely hypokinetic to akinetic. Diastolic function could not be accurately assessed due to unobtainable data. Right Ventricle: The right ventricle is grossly normal size. Right ventricular systolic function is borderline reduced. Atria: The left atrium is severely dilated. Right atrial size is normal. The interatrial septum grossly appears intact with no obvious evidence for an atrial septal defect. Mitral Valve: The mitral valve leaflets appear borderline thickened, but open well. There is moderate mitral regurgitation. Aortic Valve: There is mild aortic valve sclerosis. No aortic regurgitation is present. Tricuspid Valve: The tricuspid valve is normal in structure and function. There is trace tricuspid regurgitation. Pulmonary artery pressures cannot be estimated because of the lack of a measurable TR jet velocity. Pulmonic Valve: The pulmonic valve is not well seen, but is grossly normal. There is no pulmonic valvular regurgitation. There is no other significant valvular heart disease. Great Vessels: The aortic root is not well visualized. The ascending aorta could not be visualized. The IVC is dilated (diameter is greater than 2.1 cm) and it collapses less than 50% with a sniff. This suggests a high right atrial pressure of 15 mm Hg. Pericardium/ Pleura There is no pericardial effusion. There is no pleural effusion. MMode/2D Measurements & Calculations LVIDd: 7.2 cm LVOT diam: 2.3 cm LVIDs: 6.6 cm FS: 8.5 % IVSd: 0.95 cm LVPWd: 0.91 cm LV bond. diameter/BSA (cm/m^2): 3.0 LV sys. diameter/BSA (cm/m^2): 2.7 LA A2 area: 35.2 cm2 RA long axis: 5.2 cm LA A4 area: 36.2 cm2 RA area: 15.0 cm2 LA length (vol): 7.0 cm RA vol: 36.8 ml LA vol: 153.9 ml RA : 15.2 ml/m2 LA vol index: 63.3 ml/m2 IVC diam: 2.5 cm TAPSE: 1.5 cm Doppler Measurements & Calculations Ao V2 max: 112.3 cm/sec LVOT Max Tj: 64.4 cm/sec Ao V2 mean: 80.3 cm/sec LV V1 max P.7 mmHg Ao max P.0 mmHg LV V1 VTI: 10.2 cm Ao mean P.9 mmHg PETER(I,D): 2.6 cm2 Ao V2 VTI: 17.0 cm PETER(V,D): 2.5 cm2 sev ratio: 0.60 PETER indexed to BSA (cm^2/m^2): 1.1 MR VTI: 117.4 cm SV(LVOT): 44.0 ml Reading Physician:01:35 PM
[2022-05-22] VITALS (160 sets, daily range): BP systolic 65–150; BP diastolic 37–100; PULSE 75–150; RESP 12–57; TEMP 31–36.6; O2SAT 75–99; BMI 38.0
[2022-05-22 00:35] LABS: Lactate 2HR (Lactic Acid Rflx) 2.1 mmol/L (0.7-2.1)
[2022-05-22] MEDS: propofoL 200 MG/20 ML VIAL 100 MG IV (00:35)
--- NOTE | 2022-05-22 01:07 | P.HP_ITS ---
History of Present Illness History of Present Illness Date Patient Seen: 05/22/22 Time Patient Seen: 01:07 Chief complaint: SOB, Congestive heart failure Narrative: Mr. Jackie Hurley is a 71-year-old male with a medical history of left ventricular systolic congestive heart failure EF 20%(2020)no home 02, morbid obesity, essential hypertension, cardiomyopathy, PVD, venous insufficiency, CAD, atrial fibrillation with RVR on Eliquis, HXof [place], HX of hemorrhagic C VA/craniotomy with profound residual physical and cognitive deficits (completely dependent on for ADL support), BPH, insulin-dependent type 2 diabetes with polyneuropathy, hyperlipidemia, CKD who?presented with family to the ED with a chief complaint of worsening shortness of breath over the course of the past 24 hours. Patient had not been taking his diuretic for the past few weeks.? He beco mes profoundly short of breath with minimal exertion, was tachycardic, positive orthopnea, tachypneic, hypotensive in the ED.?at rest his saturations remained in the low 90s on room air. He & his family denied fever, chills, headache, runny nose, sore throat, chest pain, vomiting, diarrhea, abdominal pain, dysuria, frequency, urgency, diarrhea, constipation, blood in (sputum, urine, stool), recent weight gain or swelling in legs. Patient does suffer from cognitive deficits, is a poor historian, he is able to feed, dress, urinate and stool himself although unable to manage buttons, has no short-term memory, and unable to shower independently. Was unable to obtain accurate HPI from patient, the RN reported that he was at times able to follow simple commands, with no comprehension. Based on chart reviews from previous hospitalizations and primary care patient is at baseline. Initially when patient was accepted for admit temp 96.8?, BP 98/62, HR 119, R 28, O2 saturation 93% on room air, lactic 2.4, met SIRS criteria in ED, provided sepsis bolus and IV Levaquin. sepsis with hypotension B/P's 74/49, 89/54, 92/60. Patient's H&H 13/38.4, bicarb 20, BUN 24, creatinine 1.39, glucose 211, GFR 54. Chest xray showed patchy bilateral airspace opacities with a basilar predominance likely pneumonia, with confluent opacities medially in the lung bases, pneumonia versus atelectasis. D-dimer 966, CTA was negative for pulmonary embolus but showed cardiomegaly with pulmonary edema and bilateral small pleural effusions likely due to heart failure, and scattered ground-glass nodules with indistinct margins. BNP 1540, patient was negative for COVID, influenza a/B, RSV. Was given 40 of Lasix. Troponin was elevated above baseline 0.037. No EKG available in chart/cardio weather observer for evaluation. While in the emergency department patient developed SVT HR in the 150's, RR 40-50's, requiring c ardioversion. Cardioversion was successful, though patient developed acute respiratory failure requiring 4 L nasal cannula of oxygen. Following BP 111/59, HR 104, RR 38, O2 saturation 90% on 4 L N/C. SOFA:3, anion gap:14, Sj Vasc score: 7. Patient admitted to the ICU for observation due to sepsis with hypotension without shock secondary to pneumonia, acute respiratory failure secondary to acute on chronic congestive heart failure exacerbation, and atrial fibrillation with RVR, with myocardial injury. Due to staffing issues unable to bring the patient up to the ICU, patient will remain in ED until such time he can be transferred upstairs. Patient History Medical History Actinic keratoses Acute CHF Atrial fibrillation (02/21/15) Benign prostatic hyperplasia BPH (benign prostatic hyperplasia) Cardiomyopathy (02/21/15) Cataracts, bilateral (07/26/17) CHF (congestive heart failure) Chronic neck pain Coronary artery disease Diabetes Hematuria (~2016) History of CVA (cerebrovascular accident) (07/12/16) Hyperlipidemia Hypertension Hypotension Lower extremity edema Peripheral vascular disease PVD (peripheral vascular disease) Rash Renal failure Status post myocardial infarction (1994) Suspicious nevus Systolic CHF Surgical History History of cranioplasty (10/30/16) History of surgery on arm History of vasectomy S/P TURP (10/19/13) Status post craniectomy (07/12/16) Family & Social History Family History Mother Age: 92 Dementia Father Cancer Social History: household members spouse Safety & Behavioral: Feels Safe in Current Yes Environment Been Physically Hurt or No Threatened By a Person Tobacco & Substance use: Smoking Status Former smoker alcohol intake never alcohol intake frequency holiday/special occasion Substance Use Type does not use Meds Home Medications and Allergies Home Medications Medication Instructions Recorded Confirmed Type insulin regular human 100 unit/mL See Rx Instructions SUBCUT TIDAC 11/05/17 05/22/22 Rx injection solution (Humulin R #10 mL Regular U-100 Insulin) Syringes: Ultra Fine Insulin #100 ea 02/14/18 02/20/22 Rx Syringe w/Needle Light pressure salma hose #1 ea 07/05/18 02/20/22 Rx Donut Pillow #1 ea 07/06/18 02/20/22 Rx zinc oxide 20 % topical ointment 1 applictn topical BID PRN skin 07/07/18 02/20/22 Rx irritation #56.7 grams Medium to high pressure socks #1 ea 09/06/18 02/20/22 Rx Lancet: Device 1 st INJ QID 02/23/19 02/20/22 History docusate calcium 240 mg capsule 240 mg PO QID 02/23/19 02/20/22 History magnesium citrate 150 ml PO BID PRN constipation 02/23/19 02/20/22 Rx #296 mL sennosides 8.6 mg tablet (senna) 25.8 mg PO Q12H 02/23/19 02/20/22 History aspirin 81 mg tablet,delayed 81 mg PO DAILY 06/07/19 02/20/22 History release (Adult Aspirin Regimen) ProAir HFA 90 mcg/actuation See Rx Instructions .Route 10/16/19 02/20/22 Rx aerosol inhaler (albuterol sulfate) .COMPLEX #8.5 grams mupirocin 2 % topical ointment 1 applic topical TID #30 grams 02/24/20 02/20/22 Rx nystatin 100,000 unit/gram topical 1 applic topical TID 2 weeks #150 03/29/21 02/20/22 Rx cream grams terbinafine HCl 1 % topical cream 1 applic topical BID #30 grams 04/09/21 02/20/22 Rx fluconazole 50 mg tablet 50 mg PO DAILY #7 tabs 05/09/21 02/20/22 Rx mupirocin 2 % topical ointment 1 applic topical BID apply 05/14/21 02/20/22 Rx ointment to wounds on R leg #15 grams finasteride 5 mg tablet See Rx Instructions .Route 08/04/21 02/20/22 Rx .COMPLEX #90 tabs triamcinolone acetonide 0.1 % See Rx Instructions .Route 08/07/21 02/20/22 Rx topical cream .COMPLEX #30 grams simvastatin 40 mg tablet See Rx Instructions .Route 09/05/21 02/20/22 Rx .COMPLEX #90 tabs insulin lispro 100 unit/mL 5 unit (0.05 mL) SUBCUT DAILY #15 09/08/21 02/20/22 Rx subcutaneous pen (Humalog KwikPen mL (U-100) Insulin) cyclobenzaprine 10 mg tablet See Rx Instructions .Route 09/30/21 02/20/22 Rx .COMPLEX #90 tabs apixaban 5 mg tablet (Eliquis) 5 mg PO QAM #90 tabs 10/27/21 02/20/22 Rx tamsulosin 0.4 mg capsule See Rx Instructions .Route 12/05/21 02/20/22 Rx .COMPLEX #180 caps polyethylene glycol 3350 17 gram See Rx Instructions .Route 12/12/21 02/20/22 Rx oral powder packet .COMPLEX #30 ea metoprolol succinate 25 mg 25 mg PO DAILY #90 tabs 01/08/22 02/20/22 Rx tablet,extended release 24 hr potassium chloride 10 mEq See Rx Instructions .Route 02/02/22 02/20/22 Rx capsule,extended release .COMPLEX #180 caps meclizine 25 mg tablet 25 mg PO BID PRN dizziness #10 tabs 02/27/22 Rx pen needle, diabetic 31 gauge x #100 ea 03/03/22 Rx 5/16 (BD Ultra-Fine Short Pen Needle) nitrofurantoin macrocrystal 100 mg 100 mg PO BID #10 caps 03/16/22 Rx capsule fluoxetine 20 mg capsule See Rx Instructions .Route 03/26/22 Rx .COMPLEX #90 caps nitroglycerin 0.4 mg sublingual 0.4 mg sublingual Q5M PRN Chest 04/06/22 Rx tablet Pain #30 tabs Lantus Solostar U-100 Insulin 100 See Rx Instructions .Route 04/27/22 05/22/22 Rx unit/mL (3 mL) subcutaneous pen .COMPLEX #30 mL (insulin glargine) blood sugar diagnostic (OneTouch See Rx Instructions .Route 04/28/22 Rx Verio test strips) .COMPLEX #300 strips hydrocodone 5 mg-acetaminophen 325 1 tab PO Q6H #120 tabs 05/07/22 Rx mg tablet apixaban 2.5 mg tablet (Eliquis) 2.5 mg PO BID 05/22/22 05/22/22 History quetiapine 25 mg tablet 12.5 mg QPM 05/22/22 05/22/22 History torsemide 20 mg tablet See Rx Instructions .Route 05/22/22 05/22/22 History .COMPLEX PRN (Drug) Ingestion Allergies Allergy/AdvReac Type Severity Reaction Status Date / Time triamcinolone Allergy Mild Hives Verified 02/27/22 11:29 Review of Systems Review of Systems Narrative: Was unable to obtain ROS, when asked if patient was having any pain or shortness of breath his only answer was I do not know. Based on the chart review of previous chart notes this appears to be patient's cognitive baseline. Exam Vital Signs (past 8 hours): - 05/21/22 21:14 05/21/22 21:13 05/21/22 21:14 Temperature 96.8 F L Pulse Rate 150 H 151 H 150 H Respiratory Rate 28 H 32 H 31 H Blood Pressure 133/87 Pulse Oximetry 94 93 94 Oxygen Delivery Method Room Air Oxygen Flow Rate 05/21/22 21:14 05/21/22 21:30 05/21/22 21:31 Temperature Pulse Rate 152 H 152 H Respiratory Rate 41 H 49 H Blood Pressure 133/87 Pulse Oximetry 98 96 Oxygen Delivery Method Oxygen Flow Rate 05/21/22 21:31 05/21/22 22:10 05/21/22 22:26 Temperature Pulse Rate 127 H 129 H Respiratory Rate 23 28 H Blood Pressure 113/83 Pulse Oximetry 92 95 Oxygen Delivery Method Oxygen Flow Rate 05/21/22 22:26 05/21/22 22:30 05/21/22 22:30 Temperature Pulse Rate 119 H Respiratory Rate 28 H Blood Pressure 111/66 98/62 Pulse Oximetry 93 Oxygen Delivery Method Oxygen Flow Rate 05/22/22 00:09 05/22/22 00:25 05/22/22 00:31 Temperature 96.9 F L 96.9 F L Pulse Rate 86 84 Respiratory Rate 30 H 20 18 Blood Pressure 102/53 L 108/54 L 99/51 L Pulse Oximetry 90 L 89 L 97 Oxygen Delivery Method Oxygen Flow Rate 15 8 05/22/22 00:37 05/22/22 00:44 05/21/22 22:45 Temperature Pulse Rate 82 85 133 H Respiratory Rate 23 26 H 39 H Blood Pressure 92/60 96/61 Pulse Oximetry 94 94 94 Oxygen Delivery Method Oxygen Flow Rate 2 2 05/21/22 22:45 05/21/22 23:00 05/21/22 23:00 Temperature Pulse Rate 131 H Respiratory Rate 41 H Blood Pressure 100/65 103/62 Pulse Oximetry 95 Oxygen Delivery Method Oxygen Flow Rate 05/21/22 23:16 05/21/22 23:16 05/21/22 23:18 Temperature Pulse Rate 144 H 139 H Respiratory Rate 32 H 36 H Blood Pressure 74/49 L Pulse Oximetry 96 94 Oxygen Delivery Method Oxygen Flow Rate 05/21/22 23:18 05/21/22 23:30 05/21/22 23:30 Temperature Pulse Rate 141 H Respiratory Rate 31 H Blood Pressure 110/81 119/82 Pulse Oximetry 94 Oxygen Delivery Method Oxygen Flow Rate 05/22/22 00:00 05/22/22 00:07 05/22/22 00:07 Temperature Pulse Rate 141 H 141 H Respiratory Rate 35 H Blood Pressure 89/54 L Pulse Oximetry 95 95 Oxygen Delivery Method Oxygen Flow Rate 05/22/22 00:10 05/22/22 00:10 05/22/22 00:16 Temperature Pulse Rate 142 H 150 H Respiratory Rate 28 H Blood Pressure 102/53 L Pulse Oximetry 94 95 Oxygen Delivery Method Oxygen Flow Rate 05/22/22 00:16 05/22/22 00:24 05/22/22 00:24 Temperature Pulse Rate 86 Respiratory Rate 51 H Blood Pressure 126/87 108/54 L Pulse Oximetry 90 L Oxygen Delivery Method Oxygen Flow Rate 05/22/22 00:30 05/22/22 00:30 05/22/22 00:35 Temperature Pulse Rate 84 82 Respiratory Rate 30 H 30 H Blood Pressure 99/51 L Pulse Oximetry 95 95 Oxygen Delivery Method Oxygen Flow Rate 05/22/22 00:35 05/22/22 00:40 05/22/22 00:40 Temperature Pulse Rate 82 Respiratory Rate 22 Blood Pressure 92/60 96/61 Pulse Oximetry 93 Oxygen Delivery Method Oxygen Flow Rate 05/22/22 00:45 05/22/22 00:45 05/22/22 00:50 Temperature Pulse Rate 85 86 Respiratory Rate 28 H 29 H Blood Pressure 92/54 L Pulse Oximetry 93 94 Oxygen Delivery Method Oxygen Flow Rate 05/22/22 00:50 Temperature Pulse Rate Respiratory Rate Blood Pressure 108/61 Pulse Oximetry Oxygen Delivery Method Oxygen Flow Rate Oxygen Delivery Method Room Air Oxygen Flow Rate 2 Narrative Exam Narrative: General: Patient is a large framed morbidly obese male, continues to be mildly tachypneic and tachycardic, now on high flow, resting, cognitively impaired at baseline, in no acute distress at this time. HEENT: Normocephalic, atraumatic, extraocular muscles intact, mucous membranes are dry. Neck is supple and symmetric, trachea is midline, no adenopathy, no thyroid enlargement, nontender, no masses palpated. Negative for JVD Chest: Respiratory function with minimal exertion results in significant tachypnea and work of breathing. Lungs: Auscultation of all lung rothman are decreased equal, poor air exchange without obvious adventitious sounds, wheezes, rhonchi, or rales. Cardio: Tachycardic irregular rate and rhythm without murmur, rubs, or gallops, no carotid bruit, no cardiac pulsations present. Abdomen: Soft nontender, negative for organomegaly, or masses. Bowel sounds are present in all 4 quadrants without guarding or rebound, no CVA tenderness. Musculoskeletal: Muscle tone appears equal within normal limits for patient, no deformity, crepitus, effusions, cyanosis, clubbing. Positive bilateral +4 pitting edema to lower extremity. Full range of motion intact radial and pedal pulses are normal. Skin: Warm dry and intact without rashes, ulcerations or petechiae.positive venous stasis encircling bilateral calves. Neuro: Responds to verbal stimuli, moves all extremities, sensation to touch intact. Psych: Patient has a well-kept appearance, impaired cognition/mental status, at baseline per bedside RN who spoke with the Familyin ED. Objective Labs Result Diagrams: 05/21/22 21:26 05/21/22 21:26 Labs: Laboratory Results - last 24 hr 05/21/22 05/21/22 05/21/22 21:26 21:26 21:26 WBC 9.1 RBC 4.48 L Hgb 13.0 L Hct 38.4 L MCV 85.8 MCH 29.0 MCHC 33.9 RDW 15.6 H Plt Count 233 Neut % (Auto) 66.6 Lymph % (Auto) 22.0 L [place] % (Auto) 8.4 Eos % (Auto) 2.4 Baso % (Auto) 0.6 Neut # (Auto) 6100 Lymph # (Auto) 2000 [place] # (Auto) 800 Eos # (Auto) 200 Baso # (Auto) 100 D-Dimer 966 H Sodium 137 Potassium 4.5 Chloride 103 Carbon Dioxide 20 L BUN 24 H Creatinine 1.39 H Estimated GFR 54 L BUN/Creatinine Ratio 17.3 Glucose 211 H Lactate Calcium 8.6 Magnesium 2.1 Total Bilirubin 1.3 AST 18 ALT 19 Alkaline Phosphatase 69 Total Creatine Kinase 77 CK-MB (CK-2) TNP CK-MB (CK-2) Rel Index TNP Troponin I 0.037 H NT-Pro-B Natriuret Pep 1540 H Total Protein 7.1 Albumin 3.8 Globulin 3.3 Albumin/Globulin Ratio 1.2 SARS-CoV-2 (PCR) Influenza A (RT-PCR) Influenza B (RT-PCR) RSV (PCR) 05/21/22 05/21/22 05/22/22 21:26 21:32 00:16 WBC RBC Hgb Hct MCV MCH MCHC RDW Plt Count Neut % (Auto) Lymph % (Auto) [place] % (Auto) Eos % (Auto) Baso % (Auto) Neut # (Auto) Lymph # (Auto) [place] # (Auto) Eos # (Auto) Baso # (Auto) D-Dimer Sodium Potassium Chloride Carbon Dioxide BUN Creatinine Estimated GFR BUN/Creatinine Ratio Glucose Lactate 2.4 H 2.1 Calcium Magnesium Total Bilirubin AST ALT Alkaline Phosphatase Total Creatine Kinase CK-MB (CK-2) CK-MB (CK-2) Rel Index Troponin I NT-Pro-B Natriuret Pep Total Protein Albumin Globulin Albumin/Globulin Ratio SARS-CoV-2 (PCR) Negative Influenza A (RT-PCR) Flu a negative Influenza B (RT-PCR) Flu b negative RSV (PCR) Negative Assessment & Plan Assessment & Plan narrative: Mr. Jackie Hurley is a 71-year-old male with a medical history of left ventricular systolic congestive heart failure EF 20%(2020), essential hypertension, cardiomyopathy, PVD, venous insufficiency, CAD, atrial fibrillation with RVR on Eliquis, HXof [place], HX of hemorrhagic CVA/craniotomy with profound residual physical and cognitive deficits (completely dependent on for ADL support), BPH, insulin-dependent type 2 diabetes with polyneuropathy, hyperlipidemia, and CKD, who?presented with family to the ED with a chief complaint of worsening shortness of breath over the course of the past 24 hours and had not been taking his diuretics for several weeks. While in the emergency department his atrial fibrillation went into RVR requiring cardioversion. This patient requires intensive care inpatient hospital management for sepsis with hypotension, acute respiratory failure without shock secondary to pneumonia, acute on chronic congestive heart failure exacerbation, atrial fibrillation with RVR, and myocardial injury. The patient is at much higher risk for medical and surgical complications because of his history of v entricular systolic congestive heart failure EF 20%(2020), essential hypertension, cardiomyopathy, PVD, venous insufficiency, CAD, HXof [place], HX of hemorrhagic CVA/craniotomy with profound residual physical and cognitive deficits, BPH, insulin-dependent type 2 diabetes with polyneuropathy, hyperlipidemia, and CKD. These factors increase the difficulty and complexity of medical and surgical interventions and increases the chances of poor outcomes such as morbidity and mortality, as well as complications such as septic shock resulting in cardiovascular failure. The patient's left ventricular systolic congestive heart failure with an EF of 20% and atrial fibrillation will impact his oxygenation, which increases his chances of complete respiratory failure. Due to patient's safety in relation to staffing issues we are unable to bring the patient up to the ICU, patient will remain in ED until such time he can be transferred upstairs. Patient requires respiratory support for pneumonia, specify sepsis cause and treat, atrial fibrillation rate, diuresis for CHF exacerbation while preventing NETET in CKD, trend troponins and monitor for myocardial infarction. I have concerns regarding patient's use of torsemide causing severe hypotension, over medication TX with insulins causing hypoglycemia, and supplement intake of Mag and potassium resulting in cardiac irritability/atrial fibrillation with RVR. Unable to determine if patient is continuing to take fluconazole daily if so why and the risk of prolonged QT interval due to interaction with Seroquel. Patient needs a thorough medication re-evaluation by his PCP following discharge. 1. Sepsis with hypotension, acute respiratory failure, without shock, acute, present on admission -patient admitted to the ICU observation status but due to nursing shortage- patient will remain in the ED. SOFA:3, Anion Gap:14, Sj Vasc score: 7, c reatinine clearance 85 -111/59, HR 104, RR 38, O2 saturation 90% on 4 L N/C. -patient quickly escalated to requiring high-flow currently on 50 L at 65% respiratory rate 22, O2 saturation 96%-patient was unable to tolerate BiPAP -Monitor for septic shock, respiratory/cardiac arrest -tele general internal medicine doctor consult placed but will not be notified until patient is able to be brought upstairs to the ICU as the tele general internal medicine doctor have no access to ED system. -respiratory and cardio shock, likely due to pneumonia atypical versus community-acquired, complicated by CHF exacerbation and atrial fibrillation. -short of breath with minimal exertion, was tachycardic, positive orthopnea, tachypneic, hypotensive in the ED.? -lactic 2.4, met SIRS criteria in ED, provided sepsis bolus and IV Levaquin. B/P's 74/49, 89/54, 92/60, heart rates as high as 152, respiratory rate 40 to 50. -Chest xray:patchy bilateral airspace opacities with a basilar predominance. with confluent opacities medially in the lung bases, pneumonia versus atelectasis. -D-dimer 966, CTA was negative for pulmonary embolus but showed cardiomegaly with pulmonary edema and bilateral small pleural effusions likely due to heart failure, and scattered ground-glass nodules with indistinct margins. -negative for COVID, influenza a/B, RSV. -due to patient's CHF status risk for MRSA, empiric antibiotic treatment for anti MRSA, anti pneumococcal beta-lactam and macrolide: Vancomycin, Rocephin, azithromycin -per up-to-date -sputum and urine culture ordered, respiratory panel, MRSA to r/o other sources of infection -trend lactate, ordered procalcitonin, trend inflammatory markers. -Stat CMP & ABG's : To assess anion gap developed meant of respiratory acidosis/DKA/metabolic acidosis 2. Acute respiratory failure, secondary to sepsis, and Left ventricular systolic CHF exacerbation, acute on chronic, present on admission * HFrEF, appears to worsened from 30 to 20% based on review of echo May 2021 * The patient's noted that he takes torsemide 20 mg tabs 3-4 tablets (80- 120mg) per day as needed (HOLDING) * Echo ordered for tomorrow * BNP 1540-40mg IV lasix in the ED * Patient is not on any home O2, now requiring 4 L oxygen for an O2 saturation of 90%-that has now since change the patient is on high-flow 50 L at 65% RR 22 O2 saturation 96% * Due to CKD, hypotension & sepsis -placing pt on lasix drip- especially following sepsis fluid bolus in ED * Monitor electrolytes and renal function. * Ortiz Placed for accurate I&O and diuresis * Intial at time of admit :BP 111/59, HR 104, RR 38, O2 saturation 90% on 4 L N/C, changed to high-flow 50 L at 65% RR 22 O2 saturation 96% * respiratory consult, DuoNebs q.4 hours, prednisone 40 mg q.day, sputum culture ordered, incentive spirometry * Strict I&O, daily weights, fluid restriction 2000 cc, low-sodium diet * On admit Mag 2.1, potassium 4.5- Monitor closely * Continue potassium * Lisinopril was discontinued as it is contraindicated with ARNI therapy. 3. Atrial fibrillation with RVR, acute on chronic, present on admission -SVT HR in the 150's, RR 40-50's, requiring cardioversion. Cardioversion was successful. - admit Mag 2.1, potassium 4.5- Monitor closely * I am concerned that patients notes that he takes magnesium citrate 150 mL twice daily as needed for constipation & potassium chloride 10 mEqQD- this may be impacting his AFib especially if he is taking supplementation and not taking his torsemide. -continue metoprolol, Eliquis in AM Monitor for hypotension -Holding Mag 150ml BID for constipation- until further evaluation. -Monitored on telemed -EKG (post cardioversion): Sinus rhythm at a rate of 85 occasional PVCs, left axis, with a left BBB -echo ordered for tomorrow -Cardiology recommended in 2020 internally planted defibrillator -Consider Consulting [facility] & request records in am 4. Myocardial injury, acute, history myocardial infarction, present on admission -initial troponin 0.037: troponins 2021 0.013-0.026 -Monitor on telemed, trend trop x3 -likely demand ischemia secondary to BNP elevation endorse sepsis 5. Chronic kidney disease stage G3a, acute on chronic, present on admission -on admit bicarb 20, BUN 24, creatinine 1.39, glucose 211, GFR 54. -per review of 02/18/2022 primary care records patient's baseline BUN 27, creatinine 1.28, GFR 59, A1c 7.0 -Closely monitor renal function, using Lasix drip for gentle diuresis as not to cause NETTE on CKD -avoid nephrotoxic medications 5. Essential hypertension, with a history of cardiomyopathy, CAD, PVD, and venous insufficiency, chronic, present on admission - B/P's 74/49, 89/54, 92/60 -The patient's noted that he takes torsemide 20 mg tabs 3-4 tablets (80- 120mg) per day as needed-this very well may be contributing to his hypotension. Patient has seen his primary with frequent complaints of hypotension. -continue metoprolol, Entresto (angio II receptor andry)- monitor & Consider holding for hypotension -orthostatics q.4 hours while awake to start tomorrow morning. 6. Insulin-dependent type 2 diabetes, with polyneuropathy, hyperglycemia, acute on chronic, with hyperlipidemia, chronic, present on admission -glucose 211 on admit, last A1c January 2022 7.0, ordered A1c on admit 6.2- patient over the age of 70 should have a permissive A1c of up to 7.5 to avoid hypo glycemia * A1C-is too low at this time. * AnionGap:14-ordered stat ABG & repeat CMP to reassess gap after patient was placed on oxygen support. * Patient admitted under diabetic protocol, monitor for hypoglycemia, will continue on low-dose sliding scale glucose checks a.c. HS * Continue Lantus decrease dose to 20 units BID-adjust Lantus dose based on GOAL Am BS 120, and Bedtime Goal 140 * Hold Humalog * Continue simvastatin * Carb controlled diet, Lipid Panel ordered * Dietary Consult ordered * Recommend 3 month f/u repeat A1C with Blood sugar logs x 2 weeks on lower dose lantus. 7. Past history of a hemmorhagic CVA, with craniotomy resulting in physical and cognitive residual deficits, acute on chronic, present on admission * Patient is aphasic, short-term memory loss, unable to shower independently at baseline * Patient is able to urinate and stool, feed and dress himself with the exception of buttons independently. * Patient's is his caregiver * Continue fluoxetine and Seroquel 8. BPH, chronic, present on admission -due to gentle diuresis with Lasix drip, Ortiz placed-to measure accurate I&O -urinalysis and urine culture ordered -continue Flomax finasteride 9. Constipation, chronic, likely secondary to CVA, present on admission -holding patient's magnesium citrate 150 mL b.i.d.-recommend stopping this medication for treatment of constipation -recommend continuing with senna 10. Morbid obesity, acute on chronic, present on admission -as evidence by BMI of 38.4 -dietary consult ordered regarding nutritional education and information for dietary, lifestyle, exercise, and weight changes. -the patient is at much higher risk for medical and surgical complications due to obesity as it relates to chronic illnesses:, and his acute illnesses. The patient's obesity increases the difficulty and complexity of medical and/or surgical interventions, management and increases the chances of poor outcome such as morbidity and mortality as well as impaired wound healing. Code status:Full Critical Care Admit: >30min time spent. Surrogate decision maker: , Esperanza GONZALEZ PCR:Negative DVT/VTE prophylaxis: Patient on Eliquis SCDs only Disposition: Patient admitted to the ICU for observation, expected length of stay less than 2 midnights though may require re-evaluation in 24 hours as to admit status. I have utilized all available immediate resources to obtain, update, or review the patient's current medications. I confirmed that the patient's advanced care plan is present, Code status is documented and/or surrogate decision maker is listed in the patient's medical record. I have personally reviewed patient's chart notes from PCP, specialists, diagnos tic imaging, and laboratory, Time Spent With Patient Critical Care time: I spent a total of [] minutes of critical care time on this patient's care today; this time is exclusive of procedural time.
--- NOTE | 2022-05-22 01:10 | PC.NURSE ---
This RN received report from Katherine SÁNCHEZ.
[2022-05-22 01:38] LABS: Procalcitonin 0.04 ng/mL (<0.5)
[2022-05-22] MEDS: cefTRIAXone 2,000 MG in SODIUM CHLORIDE 0.9% 100 ML 200 MG IV (01:39)
[2022-05-22 01:42] LABS: Hemoglobin A1C% w Est Avg Glu 6.2 % (4.0-6.0)
[2022-05-22] MEDS: FUROSEMIDE 100 MG in SODIUM CHLORIDE 0.9% 50 ML IV (01:46)
[2022-05-22] MEDS: VANCOMYCIN 2,000 MG/400 ML PIGGYBACK 200 MG IV (02:37)
[2022-05-22 02:56] LABS: Bilirubin Urine UA NEGATIVE (NEGATIVE); Glucose Urine UA TRACE g/dL (Negative); Ketones Urine UA NEGATIVE (NEGATIVE); Leukocyte Esterase Urine UA NEGATIVE (NEGATIVE); Nitrite Urine UA NEGATIVE (Negative); Occult Blood Urine UA 3+ (Negative); Protein Urine UA NEGATIVE (Negative); Urobilinogen Urine UA 0.2 E.U./dL (0.2)
[2022-05-22 02:57] LABS: Appearance Urine UA Slightly Cloudy
[2022-05-22 02:58] LABS: Bacteria Urine Occasional (0-1); Color Urine UA OTHER; RBC Urine 30-100/HPF (0-5/HPF); Squamous Epithelial Cell Urine 0-1 /HPF (0-5/HPF); WBC Urine None Seen (0-5/HPF)
[2022-05-22 05:03] LABS: Add Manual Diff / Slide Review NO; Basophils Absolute Auto 0 /uL (0-100); Basophils Percent Auto 0.4 % (0-2); Eosinophils Absolute Auto 0 /uL (0-450); Eosinophils Percent Auto 0.2 % (2-4); Hematocrit 37.1 % (41-53); Hemoglobin 12.3 g/dL (13.5-17.5); Lymphocytes Absolute Auto 800 /uL (1100-4500); Lymphocytes Percent Auto 5.9 % (25-40); Mean Corpuscular HGB Conc 33.2 % (30-36); Mean Corpuscular Hemoglobin 28.4 PG (26-34); Mean Corpuscular Volume 85.5 fL (80-100); Monocytes Absolute Auto 600 /uL (0-900); Monocytes Percent Auto 4.8 % (3-14); Neutrophils Absolute Auto 11700 /uL (1500-7000); Neutrophils Percent Auto 88.7 % (50-75); Platelet Count 218 X10^3/uL (150-400); Red Blood Cell Count 4.34 X10^6/uL (4.5-5.9); Red Cell Distribution Width 16.1 % (11.6-14.8); White Blood Cell Count 13.2 X10^3/uL (4.5-11.0)
[2022-05-22 05:10] LABS: INR 1.4 (0.9-1.3); Prothrombin Time 16.4 SECONDS (10.1-12.7)
[2022-05-22 05:15] LABS: Alanine Aminotransferase 18 IU/L (<50); Albumin 3.5 g/dL (3.5-5.0); Albumin Globulin Ratio 1.1 (1.0-2.8); Alkaline Phosphatase 60 U/L (38-126); Aspartate Aminotransferase 21 IU/L (17-59); BUN Creatinine Ratio 18.8 (6-22); Blood Urea Nitrogen 21 mg/dL (9-20); Calcium 7.7 mg/dL (8.4-10.2); Carbon Dioxide 21 mmol/L (22-32); Chloride 105 mmol/L (98-107); Cholesterol 115 mg/dL (140-199); Estimated Glomerular Filt Rate > 60 mL/min (>60); Globulin 3.1 g/dL (1.7-4.1); Glucose 251 mg/dL (80-110); HDL Cholesterol 37 mg/dL (40-60); HEMOLYSIS < 15 (0-50); LDL Cholesterol Calculated 70 mg/dL (<100); Lactate (Lactic Acid) 1.6 mmol/L (0.7-2.1); Potassium 4.5 mmol/L (3.4-5.1); Sodium 137 mmol/L (137-145); Total Protein 6.6 g/dL (6.3-8.2); Triglycerides 42 mg/dL (35-150)
[2022-05-22 05:24] LABS: NT-proBNP (BNP-Adult 18+) 1980 pg/mL (<125)
[2022-05-22] MEDS: predniSONE 20 MG TABLET 40 MG PO (09:35)
[2022-05-22] MEDS: AZITHROMYCIN 500 MG in DEXTROSE 5% IN WATER 250 ML 250 MG IV (09:35)
[2022-05-22] MEDS: ASPIRIN EC 81 MG TABLET PO (09:36)
[2022-05-22] MEDS: METOPROLOL ER 25 MG TABLET PO (09:36)
[2022-05-22] MEDS: APIXABAN 5 MG TABLET PO (09:36)
[2022-05-22] MEDS: FINASTERIDE 5 MG TABLET PO (09:36)
[2022-05-22] MEDS: FLUoxetine 20 MG CAPSULE PO (09:37)
[2022-05-22] MEDS: TAMSULOSIN 0.4 MG CAPSULE PO ×2 (09:37→20:43)
[2022-05-22] MEDS: INSULIN GLARGINE 100 UNIT/ML 3ML PEN 20 UNIT SUBCUT (09:45)
--- NOTE | 2022-05-22 09:58 | PC.NURSE ---
Received report on pt from GONZALO [place]. Pt resting on inpatient hospital bed, 98% on HHFNC 50L 65%. Appears comfortable and tolerating well RR 23. On Lasix gtt, ABX infusing. Awake and alert, pt with baseline communication difficulties from previous CVA. HR 88 with a BBB and frequent PVCs. ECHO in room, morning labs drawn, foote in place and 550mL clear yellow urine drained. Pt declining breakfast. Glucose 236. Family at bedside. NAD. Awaiting inpt bed assignment.
[2022-05-22] MEDS: ALBUTEROL/IPRATROPIUM 3 ML AMPUL INH (11:20)
--- NOTE | 2022-05-22 11:58 | PC.NURSE ---
Pt agitated and trying to get out of bed. states he needs to have a bowel movement. placed on bed cuevas and pt continued to try and get up, pulled HHFNC out of nose. SPO2 dipped to 84%. Pt was able to be verbally redirected and calmed. NC placed back on face and pt 96%. Pt assisted OOB to commode with 2 person assist. tolerated well.
--- NOTE | 2022-05-22 12:56 | PC.NURSE ---
Addendum entered by Tina Lux R.N. 05/22/22 13:02: 4th trop* Original Note: Spoke to Dr Guevara. Made aware pt was cardioverted overnight. Verbal order to hold heparin gtt until 3rd trop results. Pt calm and cooperative at this time. Denies CP. tolerating HHFNC well. Settings unchanged 50L and 65%. Spo2 96%.
[2022-05-22] MEDS: POTASSIUM CHLORIDE 10 MEQ TAB PO (13:06)
--- NOTE | 2022-05-22 13:14 | PC.NURSE ---
1300: Pt noted with BP 75/[address] Guevara made aware. Discussed adding vasopressors for support. coil repair technician called to get emergent ECHO reading by cardio. No change in pt physical assessment. Sitting upright in bed and appears comfortable. When asking pt how he feels pt states i dont know. at bedside.
--- NOTE | 2022-05-22 13:39 | PC.NURSE ---
Troponin 3.850. Spoke to Dr Guevara-- Order for heparin gtt for rising troponin level. Dr Guevara aware pt was cardioverted overnight. Levophed orderd and DC'd. Order for Amiodarone gtt. Discussed Dobutamine gtt. Dr Guevara advised against at this time for chance to convert back to afib. Transfer to [facility] [address] cardiology in process. Pt uses [facility] and uses Dr Maty Moreno, Cardio.
[2022-05-22] MEDS: HEPARIN DRIP 25,000 UNIT/500 ML IV.SOLN 29.992 UNIT IV (13:58)
[2022-05-22] MEDS: MILRINONE LACTATE IV (14:17)
[2022-05-22] MEDS: D5W IV (14:17)
[2022-05-22] MEDS: PIGGYBACK IV (14:17)
--- NOTE | 2022-05-22 14:24 | PC.NURSE ---
Dr Guevara in ED to see patient. at bedside. Lasix gtt DC'd. Pt BP 108 systolic at this time. Intermittently hypotensive. Started on heparin gtt. Advised provider with only peripheral access unable to infuse dobutamine, heparin, and amiodarone for compatibility. No order for central line access at this time. Med order changed--DC amiodarone and dobutamine and change to milrinone. Infusing. Pt remains on HHFNC 50L 65% and tolerating well at 95%. RT called for ABG.
--- NOTE | 2022-05-22 14:27 | P.EN_ITS ---
Event Note Date Patient Seen: 05/22/22 Time Patient Seen: 14:27 Event Note (Rapid Response, Code, or fall): I was asked to come see the patient in the ED due to hypotension. BP found to be 70/50. Cardiology was called who recommended milronone drip for likely cardiogenic shock. Troponin also started uptrending significantly from prior up to 3.850 so a heparin drip was started and home eliquis was held. Repeat echo came back with EF 20-25%, mod global hypokinesis of LV and severe hypoki nesis/akinesis of inferior, septum and part of apex. Lasix drip stopped due to hypotension and lasix pushes started at 40mg BID. Patient continues on HFNC and ABG ordered and pending. Will consider bipap if presence of hypercapnea. But on exam patient's breathing stable with no resp distress. Confirmed with that patient would not want to risk being on life support so he would like to be DNR. Ordered changed to reflect this. He is now pending transfer to higher level of care for cardiology given NSTEMI, cardiogenic shock and CHF exacerbation. Dr. Guevara I spent a total of 35 minutes of critical care time on this patient's care today; this time is exclusive of procedural time.
[2022-05-22 15:24] LABS: PCO2 ABG 31.1 mmHg (35-45); pH ABG 7.35 (7.35-7.45)
[2022-05-22 15:25] LABS: Fractionated Inspired Oxygen 65; HCO3 ABG 17 mmol/L (22-26); Oxygen Saturation ABG 92 % (95-100); PO2 ABG 65 mmHg (80-100); TCO2 ABG 18 mmol/L (21-31)
--- NOTE | 2022-05-22 15:39 | PC.NURSE ---
1530: Pt sitting on the edge of the bed with PERMIT TECHNICIAN, tripod breathing, 78% on HHFNC, Placed on NRB at 15L for extra support, Full code, DNI. 150/85 no change in rhythm. 90% on HHFNC and NRB at 15L. Dr Guevara made aware. Verbal order for BiPap. RT in room.
--- NOTE | 2022-05-22 15:57 | DIET.CONS ---
Dietary Consultation Note Admission Date: 05/21/2022 23:28 Assessment: RD consulted for BMI of 38.9. Pt recently in ED for low BP. Does not seem appropriate for weight loss education. May benefit from DM education in OP with family support given low HgA1c for age. Per PCP notes 1 month ago, and pt were encouraged to reduce insulin based on FBG due to FBG in the 70s. Ht: 180.34 cm Wt: 124.965 kg BMI: 38.7 Last BM: 05/22/22 (05/22/22 12:21) MNA: Jun Score: Diet: 05/21/22 Breakfast Carbohydrate Consistent Diet Diet Modifications: Carbohydrate level: Medium (3 CHO) Bedtime snack: Yes Fluid Restriction Diet Diet Modifications: Total fluid amount: 2,000 Amount allotted to patient trays: 100 Free water included in total: Yes Fluid in addition to trays: 2334-0988 amount: 850 [id number] amount: 850 Low Sodium Diet (2gm) Diet Modifications: Labs: RBC 4.34 X10^6/uL (4.5-5.9) L 05/22/22 04:53 Hgb 12.3 g/dL (13.5-17.5) L 05/22/22 04:53 Hct 37.1 % (41-53) L 05/22/22 04:53 Creatinine 1.12 mg/dL (0.66-1.25) 05/22/22 04:53 Hemoglobin A1c 6.2 % (4.0-6.0) H 05/21/22 21:26 Lactate 1.6 mmol/L (0.7-2.1) 05/22/22 04:53 NT-Pro-B Natriuret Pep 1980 pg/mL (<125) H 05/22/22 04:53 Interventions: None at this time. Consideration for DM ed OP Electronically Signed by: Annie Dukes 05/22/22 15:57 Clinical Dietitian [address] [address]
[2022-05-22] MEDS: FUROSEMIDE 40 MG/4 ML VIAL IV (16:38)
--- NOTE | 2022-05-22 16:38 | PC.NURSE ---
Pt transferred up to ICU rm [id number] with RN, RT, and SQL ARCHITECT on cardiac monitoring and NRb at 15L maintaining 91%. Bedside report given to GONZALO [place] ICU. Noted upon transport that pt has some hematuria in foote bag which is a new finding since heparin started. GONZALO [place] made aware in bedside report. Care relinquished at this time.
--- NOTE | 2022-05-22 16:57 | PC.NURSE ---
Dr. Guevara notified about pink-tinged urine from foote catheter, ok to continue heparin gtt at this time.
--- NOTE | 2022-05-22 18:13 | PC.NURSE ---
Per hospitalist, business professor consulted for changes to medications, and he has also spoken with the pricing strategist. RN called to pharmacy multiple times for verifications of medications with no answer. Per customer care specialist, pharmacy closed early. CC contacted pharmacist who will return to pharmacy to verify and prepare medications. Per Dr. Guevara, continue milrinone until dobutamine and amiodarone are available.
[2022-05-22] MEDS: DOBUTAMINE 250 MG IN D5W 250 MG/250 ML IV.SOLN 18.525 MG IV (18:39)
[2022-05-22] MEDS: AMIODARONE 150 MG/100 ML PIGGYBACK 600 MG IV (18:40)
[2022-05-22 19:29] LABS: Acinetobacter baumannii Not Detected (Not Detect); Enterobacteriaceae species Not Detected (Not Detect); Enterococcus species Not Detected (Not Detect); Listeria monocytogenes Not Detected (Not Detect); Methicillin-resistant gene Detected (Not Detect); Staphylococcus species Detected (Not Detect); Streptococcus agalactiae (Gr B Not Detected (Not Detect); Streptococcus pneumonia Not Detected (Not Detect); Streptococcus pyogenes (Gr A) Not Detected (Not Detect); Streptococcus species Not Detected (Not Detect)
[2022-05-22 19:30] LABS: Candida albicans Not Detected (Not Detect); Candida glabrata Not Detected (Not Detect); Candida krusei Not Detected (Not Detect); Candida parapsilosis Not Detected (Not Detect); Candida tropicalis Not Detected (Not Detect); E. coli Not Detected (Not Detect); Enterobacter cloacae complex Not Detected (Not Detect); Haemophilus influenzae Not Detected (Not Detect); Neisseria meningitidis Not Detected (Not Detect); Proteus species Not Detected (Not Detect); Pseudomonas aeruginosa Not Detected (Not Detect); Serratia marcescens Not Detected (Not Detect)
[2022-05-22] MEDS: AMIODARONE 360 MG/200 ML PIGGYBACK 33.33 MG IV (19:32)
[2022-05-22 19:38] LABS: PTT Partial Thromboplastin Tim 37 SECONDS (26-36)
[2022-05-22] MEDS: INSULIN REGULAR 100 UNIT/ML 3 ML VIAL SUBCUT ×2 (19:54→23:46)
[2022-05-22 19:55] LABS: Adenovirus Not Detected (Not Detect); B. parapertussis Not Detected (Not Detecte); Bordetella pertussis Not Detected (Not Detecte); Chlamydophila pneumoniae Not Detected (Not Detect); Coronavirus 229E Not Detected (Not Detect); Coronavirus HKU1 Not Detected (Not Detect); Coronavirus NL 63 Not Detected (Not Detect); Coronavirus OC43 Not Detected (Not Detect); Human Metapneumovirus Not Detected (Not Detect); Human Rhinovirus/Enterovirus Not Detected (Not Detect); Influenza A Not Detected (Not Detect); Influenza B Not Detected (Not Detect); Mycoplasma pneumoniae Not Detected (Not Detect); Parainfluenza Virus 1 Not Detected (Not Detect); Parainfluenza Virus 2 Not Detected (Not Detect); Parainfluenza Virus 3 Not Detected (Not Detect); Parainfluenza Virus 4 Not Detected (Not Detect); Respiratory Syncytial Virus Detected (Not Detect); SARS- CoV-2 Not Detected (Not Detecte)
[2022-05-22] MEDS: ATORVASTATIN 20 MG TABLET PO (20:42)
[2022-05-22] MEDS: ENOXAPARIN 150 MG/ML SYRINGE 125 MG SUBCUT (20:42)
[2022-05-22] MEDS: VANCOMYCIN 1,500 MG/300 ML PIGGYBACK 200 MG IV (20:42)
[2022-05-22] MEDS: SENNOSIDES 8.6 MG TABLET 17.2 MG PO (20:42)
--- NOTE | 2022-05-22 21:13 | P.TELICUCN_ITS ---
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 Patient reported diuretic noncompliance. Admitted during 05/22 overnight shift and initially treated for presumptive sepsis due to lactate of 2.4. Given ceftriaxone. Of note, procalcitonin was (- ). Pulmonary CTA was negative for PE but showed pulmonary edema, bilateral sm all pleural effusions and scattered GGOs. BNP 1540. SARS-CoV2/influenza/RSV (- ). Was given 40 mgof Lasix in the ED. Troponin was elevated above baseline 0.037. Developed unstable SVT HR in the 150's requiring cardioversion in the ED. Patient spent many hours in the ED due to a lack of bed availability; there have also been efforts at transfer. Code status is DNR/DNI. Once in ICU, diagnostic impression was cardiogenic > septic shock; patient started on NIPPV and inotropic therapy. At time of camera activation, amiodarone is infusing at 1 mg/min and patient is on dobutamine 2.5 mcg/kg/min. /2 blood cultures are (+) for Staph; patient is on vancomycin. [facility]LY [facility] Medical History Actinic keratoses Acute CHF Atrial fibrillation (02/21/15) Benign prostatic hyperplasia BPH (benign prostatic hyperplasia) Cardiomyopathy (02/21/15) Cataracts, bilateral (07/26/17) CHF (congestive heart failure) Chronic neck pain Coronary artery disease Diabetes Hematuria (~2016) History of CVA (cerebrovascular accident) (07/12/16) Hyperlipidemia Hypertension Hypotension Lower extremity edema Peripheral vascular disease PVD (peripheral vascular disease) Rash Renal failure Status post myocardial infarction (1994) Suspicious nevus Systolic CHF Surgical History History of cranioplasty (10/30/16) History of surgery on arm History of vasectomy S/P TURP (10/19/13) Status post craniectomy (07/12/16) Family History Mother Age: 92 Dementia Father Cancer Social History household members: spouse Smoking Status: Former smoker second hand exposure: No alcohol intake: former substance use type: does not use Current Medications Current Medications Medications: Home Medications insulin regular human 100 unit/mL injection solution (Humulin R Regular U-100 Insulin) See Rx Instructions SUBCUT TIDAC #10 mL 11/05/17 [Rx Confirmed 05/22/22] Syringes: Ultra Fine Insulin Syringe w/Needle #100 ea 02/14/18 [Rx Confirmed 05/22/22] Light pressure salma hose #1 ea 07/05/18 [Rx Confirmed 05/22/22] Donut Pillow #1 ea 07/06/18 [Rx Confirmed 05/22/22] Medium to high pressure socks #1 ea 09/06/18 [Rx Confirmed 05/22/22] Lancet: Device 1 st INJ QID 02/23/19 [History Confirmed 05/22/22] finasteride 5 mg tablet See Rx Instructions .Route .COMPLEX #90 tabs 08/04/21 [Rx Confirmed 05/22/22] simvastatin 40 mg tablet See Rx Instructions .Route .COMPLEX #90 tabs 09/05/21 [Rx Confirmed 05/22/22] insulin lispro 100 unit/mL subcutaneous pen (Humalog KwikPen (U-100) Insulin) 5 unit (0.05 mL) SUBCUT DAILY #15 mL 09/08/21 [Rx Confirmed 05/22/22] cyclobenzaprine 10 mg tablet See Rx Instructions .Route .COMPLEX #90 tabs 09/30/21 [Rx Confirmed 05/22/22] tamsulosin 0.4 mg capsule See Rx Instructions .Route .COMPLEX #180 caps 12/05/21 [Rx Confirmed 05/22/22] polyethylene glycol 3350 17 gram oral powder packet See Rx Instructions .Route .COMPLEX #30 ea 12/12/21 [Rx Confirmed 05/22/22] metoprolol succinate 25 mg tablet,extended release 24 hr 25 mg PO DAILY #90 tabs 01/08/22 [Rx Confirmed 05/22/22] potassium chloride 10 mEq capsule,extended release See Rx Instructions .Route .COMPLEX #180 caps 02/02/22 [Rx Confirmed 05/22/22] pen needle, diabetic 31 gauge x 5/16 (BD Ultra-Fine Short Pen Needle) #100 ea 03/03/22 [Rx Confirmed 05/22/22] fluoxetine 20 mg capsule See Rx Instructions .Route .COMPLEX #90 caps 03/26/22 [Rx Confirmed 05/22/22] Lantus Solostar U-100 Insulin 100 unit/mL (3 mL) subcutaneous pen (insulin glargine) See Rx Instructions .Route .COMPLEX #30 mL 04/27/22 [Rx Confirmed 05/22/22] blood sugar diagnostic (OneTouch Verio test strips) See Rx Instructions .Route .COMPLEX #300 strips 04/28/22 [Rx Confirmed 05/22/22] hydrocodone 5 mg-acetaminophen 325 mg tablet 1 tab PO Q6H #120 tabs 05/07/22 [Rx Confirmed 05/22/22] Entresto 12 mg PO BID 05/22/22 [History Confirmed 05/22/22] apixaban 2.5 mg tablet (Eliquis) 2.5 mg PO BID 05/22/22 [History Confirmed ] quetiapine 25 mg tablet 12.5 mg QPM 05/22/22 [History Confirmed 05/22/22] torsemide 20 mg tablet See Rx Instructions .Route .COMPLEX PRN (Drug) Ingestion 05/22/22 [History Confirmed 05/22/22] Visit Medications (administered) Generic Name Dose Route Start Last Admin Trade Name Freq PRN Reason Stop Dose Admin Aspirin 81 mg 05/22/22 09:00 05/22/22 09:36 Aspirin Ec 81 Mg Tablet PO 81 mg DAILY SHAUN Administration Atorvastatin Calcium 20 mg 05/22/22 21:00 05/22/22 20:42 Atorvastatin 20 Mg Tablet PO 20 mg BEDTIME SHAUN Administration Enoxaparin Sodium 125 mg 05/22/22 21:00 05/22/22 20:42 Enoxaparin 150 Mg/Ml Syringe SUBCUT 125 mg BID SHAUN Administration Finasteride 5 mg 05/22/22 09:00 05/22/22 09:36 Finasteride 5 Mg Tablet PO 5 mg DAILY SHAUN Administration Fluoxetine HCl 20 mg 05/22/22 09:00 05/22/22 09:37 Fluoxetine 20 Mg Capsule PO 20 mg DAILY SHAUN Administration Furosemide 40 mg 05/22/22 16:00 05/22/22 16:38 Furosemide 40 Mg/4 Ml Vial IV 40 mg 1600,0800 SHAUN Administration Vancomycin HCl/Dextrose 1,500 mg in 300 mls @ 200 mls/hr 05/22/22 20:00 05/22/22 20:42 Vancomycin IV 200 mls/hr Q18H SHAUN Administration Amiodarone HCl/Dextrose 360 mg in 200 mls @ 33.333 mls/hr 05/22/22 18:00 05/22/22 19:32 Nexterone IV 05/22/22 23:59 33.333 mls/hr NOW ONE 33.33 mls/hr Administration Protocol Dobutamine HCl/Dextrose 250 mg in 250 mls @ 18.525 mls/hr 05/22/22 17:45 05/22/22 18:39 Dobutamine 250 Mg In D5w IV 2.5 mcg/kg/min TITRATE SHAUN 18.525 mls/hr Administration Protocol 2.5 MCG/KG/MIN Insulin Glargine 20 unit 05/22/22 09:00 05/22/22 20:43 Insulin Glargine 100 Unit/Ml 3ml Pen SUBCUT Not Given BID [facility] Insulin Human Regular 0 unit 05/22/22 17:15 05/22/22 19:54 Insulin Regular 100 Unit/Ml 3 Ml Vial SUBCUT 5 unit Q6H [facility] Administration Protocol Potassium Chloride 10 meq 05/22/22 08:00 05/22/22 17:09 Potassium Chloride 10 Meq Tab PO Not Given BIDWM [facility] Quetiapine Fumarate 12.5 mg 05/22/22 17:00 05/22/22 17:09 Quetiapine 25 Mg Tablet PO Not Given QPM SHAUN Sennosides 17.2 mg 05/22/22 21:00 05/22/22 20:42 Sennosides 8.6 Mg Tablet PO 17.2 mg BEDTIME SHAUN Administration Tamsulosin HCl 0.4 mg 05/22/22 09:00 05/22/22 20:43 Tamsulosin 0.4 Mg Capsule PO 0.4 mg BID SHAUN Administration Exam Vital Signs (past 8 hours): - 05/22/22 13:15 05/22/22 13:20 05/22/22 13:25 Pulse Rate 82 81 81 Respiratory Rate 26 H 27 H 27 H Blood Pressure Pulse Oximetry 95 95 95 Oxygen Delivery Method Fraction of Inspired Oxygen 05/22/22 13:30 05/22/22 13:35 05/22/22 13:36 Pulse Rate 82 83 83 Respiratory Rate 27 H 31 H 30 H Blood Pressure Pulse Oximetry 95 96 95 Oxygen Delivery Method Fraction of Inspired Oxygen 05/22/22 13:36 05/22/22 13:40 05/22/22 13:40 Pulse Rate 83 Respiratory Rate 28 H Blood Pressure 97/70 100/71 Pulse Oximetry 96 Oxygen Delivery Method Fraction of Inspired Oxygen 05/22/22 13:45 05/22/22 13:45 05/22/22 13:50 Pulse Rate 84 84 Respiratory Rate 29 H 33 H Blood Pressure 103/79 Pulse Oximetry 95 95 Oxygen Delivery Method Fraction of Inspired Oxygen 05/22/22 13:51 05/22/22 13:51 05/22/22 13:55 Pulse Rate 83 84 Respiratory Rate 34 H 32 H Blood Pressure 107/74 Pulse Oximetry 95 94 Oxygen Delivery Method Fraction of Inspired Oxygen 05/22/22 13:56 05/22/22 13:56 05/22/22 14:00 Pulse Rate 83 83 Respiratory Rate 31 H 35 H Blood Pressure 125/77 Pulse Oximetry 94 94 Oxygen Delivery Method Fraction of Inspired Oxygen 05/22/22 14:05 05/22/22 14:05 05/22/22 14:10 Pulse Rate 83 83 Respiratory Rate 33 H 33 H Blood Pressure 129/67 Pulse Oximetry 94 94 Oxygen Delivery Method Fraction of Inspired Oxygen 05/22/22 14:11 05/22/22 14:11 05/22/22 14:15 Pulse Rate 84 Respiratory Rate 36 H Blood Pressure 107/77 108/75 Pulse Oximetry 94 Oxygen Delivery Method Fraction of Inspired Oxygen 05/22/22 14:15 05/22/22 14:20 05/22/22 14:20 Pulse Rate 83 84 Respiratory Rate 40 H 35 H Blood Pressure 122/74 Pulse Oximetry 94 95 Oxygen Delivery Method Fraction of Inspired Oxygen 05/22/22 14:25 05/22/22 14:27 05/22/22 14:27 Pulse Rate 84 84 Respiratory Rate 34 H 30 H Blood Pressure 121/72 Pulse Oximetry 96 95 Oxygen Delivery Method Fraction of Inspired Oxygen 05/22/22 14:30 05/22/22 14:30 05/22/22 14:35 Pulse Rate 83 Respiratory Rate 35 H Blood Pressure 119/86 114/72 Pulse Oximetry 95 Oxygen Delivery Method Fraction of Inspired Oxygen 05/22/22 14:35 05/22/22 14:40 05/22/22 14:41 Pulse Rate 83 82 Respiratory Rate 33 H 34 H Blood Pressure 118/85 Pulse Oximetry 95 95 Oxygen Delivery Method Fraction of Inspired Oxygen 05/22/22 14:41 05/22/22 14:45 05/22/22 14:46 Pulse Rate 82 83 83 Respiratory Rate 37 H 33 H 31 H Blood Pressure Pulse Oximetry 95 94 95 Oxygen Delivery Method Fraction of Inspired Oxygen 05/22/22 14:46 05/22/22 14:50 05/22/22 14:50 Pulse Rate 83 Respiratory Rate 32 H Blood Pressure 108/91 H 119/90 Pulse Oximetry 94 Oxygen Delivery Method Fraction of Inspired Oxygen 05/22/22 14:55 05/22/22 15:00 05/22/22 15:00 Pulse Rate 100 H 84 Respiratory Rate 29 H 32 H Blood Pressure 130/76 Pulse Oximetry 95 94 Oxygen Delivery Method Fraction of Inspired Oxygen 05/22/22 15:05 05/22/22 15:05 05/22/22 15:10 Pulse Rate 84 86 Respiratory Rate 33 H 33 H Blood Pressure 133/80 Pulse Oximetry 94 93 Oxygen Delivery Method Fraction of Inspired Oxygen 05/22/22 15:11 05/22/22 15:11 05/22/22 15:15 Pulse Rate 86 Respiratory Rate 34 H Blood Pressure 124/100 H 134/77 Pulse Oximetry 93 Oxygen Delivery Method Fraction of Inspired Oxygen 05/22/22 15:15 05/22/22 15:20 05/22/22 15:20 Pulse Rate 86 91 H Respiratory Rate 35 H 33 H Blood Pressure 117/75 Pulse Oximetry 93 92 Oxygen Delivery Method Fraction of Inspired Oxygen 05/22/22 15:25 05/22/22 15:26 05/22/22 15:26 Pulse Rate 100 H 100 H Respiratory Rate 50 H 49 H Blood Pressure 98/56 L Pulse Oximetry 85 L 75 L Oxygen Delivery Method Fraction of Inspired Oxygen 05/22/22 15:30 05/22/22 15:30 05/22/22 15:35 Pulse Rate 94 H 93 H Respiratory Rate 40 H 44 H Blood Pressure 111/80 Pulse Oximetry 75 L 90 L Oxygen Delivery Method Fraction of Inspired Oxygen 05/22/22 15:36 05/22/22 15:36 05/22/22 15:40 Pulse Rate 94 H Respiratory Rate 43 H Blood Pressure 150/85 H 126/79 Pulse Oximetry 90 L Oxygen Delivery Method Fraction of Inspired Oxygen 05/22/22 15:40 05/22/22 15:45 05/22/22 15:45 Pulse Rate 93 H 93 H Respiratory Rate 43 H 34 H Blood Pressure 126/80 Pulse Oximetry 91 80 L Oxygen Delivery Method Fraction of Inspired Oxygen 05/22/22 15:50 05/22/22 15:50 05/22/22 15:55 Pulse Rate 91 H Respiratory Rate 24 Blood Pressure 124/78 131/57 L Pulse Oximetry 93 Oxygen Delivery Method Fraction of Inspired Oxygen 50 05/22/22 15:55 05/22/22 15:55 05/22/22 16:00 Pulse Rate 88 Respiratory Rate 26 H Blood Pressure 122/75 131/57 L Pulse Oximetry 93 Oxygen Delivery Method Fraction of Inspired Oxygen 05/22/22 16:00 05/22/22 16:05 05/22/22 16:06 Pulse Rate 87 94 H Respiratory Rate 29 H 31 H Blood Pressure 129/82 Pulse Oximetry 92 93 Oxygen Delivery Method Fraction of Inspired Oxygen 05/22/22 16:06 05/22/22 17:07 05/22/22 17:10 Pulse Rate 87 81 80 Respiratory Rate 31 H 29 H 27 H Blood Pressure 81/48 L Pulse Oximetry 93 94 93 Oxygen Delivery Method Fraction of Inspired Oxygen 05/22/22 17:15 05/22/22 17:15 05/22/22 17:20 Pulse Rate 80 80 Respiratory Rate 26 H 25 H Blood Pressure 81/48 L 81/48 L Pulse Oximetry 94 95 Oxygen Delivery Method Fraction of Inspired Oxygen 05/22/22 17:25 05/22/22 17:27 05/22/22 17:27 Pulse Rate 80 80 Respiratory Rate 28 H 26 H Blood Pressure 100/48 L Pulse Oximetry 95 94 Oxygen Delivery Method Fraction of Inspired Oxygen 05/22/22 17:30 05/22/22 17:30 05/22/22 17:35 Pulse Rate 80 80 Respiratory Rate 29 H 28 H Blood Pressure 88/53 L Pulse Oximetry 94 94 Oxygen Delivery Method Fraction of Inspired Oxygen 05/22/22 17:40 05/22/22 17:45 05/22/22 17:45 Pulse Rate 81 84 Respiratory Rate 25 H 57 H Blood Pressure 96/54 L Pulse Oximetry 95 92 Oxygen Delivery Method Fraction of Inspired Oxygen 05/22/22 17:50 05/22/22 17:55 05/22/22 18:00 Pulse Rate 81 82 Respiratory Rate 29 H 19 Blood Pressure 96/54 L 94/51 L Pulse Oximetry 96 98 Oxygen Delivery Method Fraction of Inspired Oxygen 05/22/22 18:00 05/22/22 18:05 05/22/22 19:07 Pulse Rate 80 81 Respiratory Rate 24 21 Blood Pressure 94/51 L 99/53 L Pulse Oximetry 95 96 Oxygen Delivery Method Fraction of Inspired Oxygen 50 05/22/22 18:10 05/22/22 18:15 05/22/22 18:15 Pulse Rate 83 83 Respiratory Rate 23 21 Blood Pressure 90/46 L Pulse Oximetry 96 95 Oxygen Delivery Method Fraction of Inspired Oxygen 05/22/22 18:20 05/22/22 18:25 05/22/22 18:30 Pulse Rate 82 80 79 Respiratory Rate 43 H 45 H 36 H Blood Pressure Pulse Oximetry 96 94 94 Oxygen Delivery Method Fraction of Inspired Oxygen 05/22/22 18:31 05/22/22 18:31 05/22/22 18:34 Pulse Rate 79 86 Respiratory Rate 36 H 26 H Blood Pressure 65/37 L Pulse Oximetry 94 97 Oxygen Delivery Method Fraction of Inspired Oxygen 05/22/22 18:34 05/22/22 18:35 05/22/22 18:38 Pulse Rate 82 Respiratory Rate 26 H Blood Pressure 78/53 L 126/92 H Pulse Oximetry 96 Oxygen Delivery Method Fraction of Inspired Oxygen 05/22/22 18:38 05/22/22 18:40 05/22/22 18:41 Pulse Rate 83 86 Respiratory Rate 26 H 25 H Blood Pressure 105/57 L Pulse Oximetry 95 96 Oxygen Delivery Method Fraction of Inspired Oxygen 05/22/22 18:41 05/22/22 18:45 05/22/22 18:45 Pulse Rate 82 81 Respiratory Rate 24 25 H Blood Pressure 99/53 L Pulse Oximetry 97 96 Oxygen Delivery Method Fraction of Inspired Oxygen 05/22/22 18:50 05/22/22 18:55 05/22/22 19:00 Pulse Rate 84 82 90 Respiratory Rate 28 H 22 26 H Blood Pressure Pulse Oximetry 96 97 98 Oxygen Delivery Method Fraction of Inspired Oxygen 05/22/22 19:05 05/22/22 19:10 05/22/22 19:15 Pulse Rate 92 H 92 H 93 H Respiratory Rate 23 25 H 28 H Blood Pressure Pulse Oximetry 98 99 97 Oxygen Delivery Method Fraction of Inspired Oxygen 05/22/22 19:16 05/22/22 19:16 05/22/22 19:30 Pulse Rate 90 Respiratory Rate 27 H Blood Pressure 84/54 L 95/55 L Pulse Oximetry 97 Oxygen Delivery Method Fraction of Inspired Oxygen 05/22/22 19:30 05/22/22 19:45 05/22/22 19:45 Pulse Rate 85 83 Respiratory Rate 26 H 26 H Blood Pressure 113/57 L Pulse Oximetry 98 97 Oxygen Delivery Method Fraction of Inspired Oxygen 05/22/22 20:00 05/22/22 20:00 05/22/22 19:00 Pulse Rate 86 Respiratory Rate 27 H Blood Pressure 109/56 L Pulse Oximetry 97 Oxygen Delivery Method BiPAP Fraction of Inspired Oxygen 05/22/22 20:00 Pulse Rate 86 Respiratory Rate 27 H Blood Pressure 109/56 L Pulse Oximetry 97 Oxygen Delivery Method Fraction of Inspired Oxygen Fraction of Inspired Oxygen 50 Oxygen Delivery Method BiPAP Oxygen Flow Rate 50 Const General: comfortable Resp Other: BIPAP 18/3 w/ FiO2 53% Objective Labs Result Diagrams: 05/22/22 04:53 05/22/22 04:53 Labs: Laboratory Results - last 24 hr 05/21/22 05/21/22 05/21/22 21:26 21:26 21:26 WBC 9.1 RBC 4.48 L Hgb 13.0 L Hct 38.4 L MCV 85.8 MCH 29.0 MCHC 33.9 RDW 15.6 H Plt Count 233 Neut % (Auto) 66.6 Lymph % (Auto) 22.0 L Amelia % (Auto) 8.4 Eos % (Auto) 2.4 Baso % (Auto) 0.6 Neut # (Auto) 6100 Lymph # (Auto) 2000 Amelia # (Auto) 800 Eos # (Auto) 200 Baso # (Auto) 100 PT INR APTT D-Dimer 966 H ABG pH ABG pCO2 ABG pO2 ABG HCO3 ABG Total CO2 ABG O2 Saturation ABG Base Excess FiO2 Sodium 137 Potassium 4.5 Chloride 103 Carbon Dioxide 20 L BUN 24 H Creatinine 1.39 H Estimated GFR 54 L BUN/Creatinine Ratio 17.3 Glucose 211 H Hemoglobin A1c Lactate Calcium 8.6 Magnesium 2.1 Total Bilirubin 1.3 AST 18 ALT 19 Alkaline Phosphatase 69 Total Creatine Kinase 77 CK-MB (CK-2) TNP CK-MB (CK-2) Rel Index TNP Troponin I 0.037 H NT-Pro-B Natriuret Pep 1540 H Total Protein 7.1 Albumin 3.8 Globulin 3.3 Albumin/Globulin Ratio 1.2 Triglycerides Cholesterol LDL Cholesterol, Calc HDL Cholesterol Procalcitonin TSH Urine Color Urine Appearance Urine pH Ur Specific [place] Urine Protein Urine Glucose (UA) Urine Ketones Urine Occult Blood Urine Nitrate Urine Bilirubin Urine Urobilinogen Ur Leukocyte Esterase Urine RBC Urine WBC Ur Squamous Epith Cells Urine Bacteria Nasal Screen MRSA (PCR) A. baumannii (PCR) Chlamy pneumoniae PCR Adenovirus (PCR) B. pertussis DNA (PCR) B.parapertussis DNA PCR Silvia albicans (PCR) C. glabrata (PCR) C. krusei (PCR) C. parapsilosis (PCR) C. tropicalis (PCR) Coronavirus OC43 (PCR) Coronavirus HKU1 (PCR) Coronavirus 229E (PCR) SARS-CoV-2 (PCR) Coronavirus NL63 (PCR) Enterobacteriac sp PCR E. cloacae complex PCR Enterococcus sp PCR E. coli (PCR) H. influenzae (PCR) Human Metapneumovir PCR Influenza A (RT-PCR) Influenza Type A (PCR) Influenza B (RT-PCR) Influenza Type B (PCR) Klebsiella oxytoca PCR Klebsiella pneumoniae List. monocytogenes PCR M. pneumoniae (PCR) N. meningitidis (PCR) Parainfluenza 1 (PCR) Parainfluenza 2 (PCR) Parainfluenza 3 (PCR) Parainfluenza 4 (PCR) Proteus species (PCR) RSV (PCR) Entero/Rhino (PCR) Serratia marcescens PCR Staphylococcus sp PCR Staph aureus (PCR) mecA-Methicil Res Gene Streptococcus sp PCR Group A Strep (PCR) Strep agalactiae (PCR) Strep pneumoniae (PCR) P. aeruginosa (PCR) Alex/B-Vanco Res Genes KPC-Carbap Res Gene PCR 05/21/22 05/21/22 05/21/22 21:26 21:26 21:26 WBC RBC Hgb Hct MCV MCH MCHC RDW Plt Count Neut % (Auto) Lymph % (Auto) Amelia % (Auto) Eos % (Auto) Baso % (Auto) Neut # (Auto) Lymph # (Auto) Amelia # (Auto) Eos # (Auto) Baso # (Auto) PT INR APTT D-Dimer ABG pH ABG pCO2 ABG pO2 ABG HCO3 ABG Total CO2 ABG O2 Saturation ABG Base Excess FiO2 Sodium Potassium Chloride Carbon Dioxide BUN Creatinine Estimated GFR BUN/Creatinine Ratio Glucose Hemoglobin A1c 6.2 H Lactate 2.4 H Calcium Magnesium Total Bilirubin AST ALT Alkaline Phosphatase Total Creatine Kinase CK-MB (CK-2) CK-MB (CK-2) Rel Index Troponin I NT-Pro-B Natriuret Pep Total Protein Albumin Globulin Albumin/Globulin Ratio Triglycerides Cholesterol LDL Cholesterol, Calc HDL Cholesterol Procalcitonin 0.04 TSH Urine Color Urine Appearance Urine pH Ur Specific [place] Urine Protein Urine Glucose (UA) Urine Ketones Urine Occult Blood Urine Nitrate Urine Bilirubin Urine Urobilinogen Ur Leukocyte Esterase Urine RBC Urine WBC Ur Squamous Epith Cells Urine Bacteria Nasal Screen MRSA (PCR) A. baumannii (PCR) Chlamy pneumoniae PCR Adenovirus (PCR) B. pertussis DNA (PCR) B.parapertussis DNA PCR Silvia albicans (PCR) C. glabrata (PCR) C. krusei (PCR) C. parapsilosis (PCR) C. tropicalis (PCR) Coronavirus OC43 (PCR) Coronavirus HKU1 (PCR) Coronavirus 229E (PCR) SARS-CoV-2 (PCR) Coronavirus NL63 (PCR) Enterobacteriac sp PCR E. cloacae complex PCR Enterococcus sp PCR E. coli (PCR) H. influenzae (PCR) Human Metapneumovir PCR Influenza A (RT-PCR) Influenza Type A (PCR) Influenza B (RT-PCR) Influenza Type B (PCR) Klebsiella oxytoca PCR Klebsiella pneumoniae List. monocytogenes PCR M. pneumoniae (PCR) N. meningitidis (PCR) Parainfluenza 1 (PCR) Parainfluenza 2 (PCR) Parainfluenza 3 (PCR) Parainfluenza 4 (PCR) Proteus species (PCR) RSV (PCR) Entero/Rhino (PCR) Serratia marcescens PCR Staphylococcus sp PCR Staph aureus (PCR) mecA-Methicil Res Gene Streptococcus sp PCR Group A Strep (PCR) Strep agalactiae (PCR) Strep pneumoniae (PCR) P. aeruginosa (PCR) Alex/B-Vanco Res Genes KPC-Carbap Res Gene PCR 05/21/22 05/21/22 05/22/22 21:32 22:24 00:16 WBC RBC Hgb Hct MCV MCH MCHC RDW Plt Count Neut % (Auto) Lymph % (Auto) Amelia % (Auto) Eos % (Auto) Baso % (Auto) Neut # (Auto) Lymph # (Auto) Amelia # (Auto) Eos # (Auto) Baso # (Auto) PT INR APTT D-Dimer ABG pH ABG pCO2 ABG pO2 ABG HCO3 ABG Total CO2 ABG O2 Saturation ABG Base Excess FiO2 Sodium Potassium Chloride Carbon Dioxide BUN Creatinine Estimated GFR BUN/Creatinine Ratio Glucose Hemoglobin A1c Lactate 2.1 Calcium Magnesium Total Bilirubin AST ALT Alkaline Phosphatase Total Creatine Kinase CK-MB (CK-2) CK-MB (CK-2) Rel Index Troponin I NT-Pro-B Natriuret Pep Total Protein Albumin Globulin Albumin/Globulin Ratio Triglycerides Cholesterol LDL Cholesterol, Calc HDL Cholesterol Procalcitonin TSH Urine Color Urine Appearance Urine pH Ur Specific [place] Urine Protein Urine Glucose (UA) Urine Ketones Urine Occult Blood Urine Nitrate Urine Bilirubin Urine Urobilinogen Ur Leukocyte Esterase Urine RBC Urine WBC Ur Squamous Epith Cells Urine Bacteria Nasal Screen MRSA (PCR) A. baumannii (PCR) Not detected Chlamy pneumoniae PCR Adenovirus (PCR) B. pertussis DNA (PCR) B.parapertussis DNA PCR Silvia albicans (PCR) Not detected C. glabrata (PCR) Not detected C. krusei (PCR) Not detected C. parapsilosis (PCR) Not detected C. tropicalis (PCR) Not detected Coronavirus OC43 (PCR) Coronavirus HKU1 (PCR) Coronavirus 229E (PCR) SARS-CoV-2 (PCR) Negative Coronavirus NL63 (PCR) Enterobacteriac sp PCR Not detected E. cloacae complex PCR Not detected Enterococcus sp PCR Not detected E. coli (PCR) Not detected H. influenzae (PCR) Not detected Human Metapneumovir PCR Influenza A (RT-PCR) Flu a negative Influenza Type A (PCR) Influenza B (RT-PCR) Flu b negative Influenza Type B (PCR) Klebsiella oxytoca PCR Not detected Klebsiella pneumoniae Not detected List. monocytogenes PCR Not detected M. pneumoniae (PCR) N. meningitidis (PCR) Not detected Parainfluenza 1 (PCR) Parainfluenza 2 (PCR) Parainfluenza 3 (PCR) Parainfluenza 4 (PCR) Proteus species (PCR) Not detected RSV (PCR) Negative Entero/Rhino (PCR) Serratia marcescens PCR Not detected Staphylococcus sp PCR Detected H Staph aureus (PCR) Not detected mecA-Methicil Res Gene Detected H Streptococcus sp PCR Not detected Group A Strep (PCR) Not detected Strep agalactiae (PCR) Not detected Strep pneumoniae (PCR) Not detected P. aeruginosa (PCR) Not detected Alex/B-Vanco Res Genes Not Reportable KPC-Carbap Res Gene PCR Not Reportable 05/22/22 05/22/22 05/22/22 02:30 04:53 04:53 WBC 13.2 H RBC 4.34 L Hgb 12.3 L Hct 37.1 L MCV 85.5 MCH 28.4 MCHC 33.2 RDW 16.1 H Plt Count 218 Neut % (Auto) 88.7 H D Lymph % (Auto) 5.9 L Amelia % (Auto) 4.8 Eos % (Auto) 0.2 L Baso % (Auto) 0.4 Neut # (Auto) 41970 H Lymph # (Auto) 800 L Amelia # (Auto) 600 Eos # (Auto) 0 Baso # (Auto) 0 PT 16.4 H INR 1.4 H APTT D-Dimer ABG pH ABG pCO2 ABG pO2 ABG HCO3 ABG Total CO2 ABG O2 Saturation ABG Base Excess FiO2 Sodium Potassium Chloride Carbon Dioxide BUN Creatinine Estimated GFR BUN/Creatinine Ratio Glucose Hemoglobin A1c Lactate Calcium Magnesium Total Bilirubin AST ALT Alkaline Phosphatase Total Creatine Kinase CK-MB (CK-2) CK-MB (CK-2) Rel Index Troponin I NT-Pro-B Natriuret Pep Total Protein Albumin Globulin Albumin/Globulin Ratio Triglycerides Cholesterol LDL Cholesterol, Calc HDL Cholesterol Procalcitonin TSH Urine Color Other Urine Appearance Slightly cloudy Urine pH 5.0 Ur Specific [place] 1.010 Urine Protein Negative Urine Glucose (UA) Trace H Urine Ketones Negative Urine Occult Blood 3+ H Urine Nitrate Negative Urine Bilirubin Negative Urine Urobilinogen 0.2 Ur Leukocyte Esterase Negative Urine RBC 30-100/hpf H Urine WBC None seen Ur Squamous Epith Cells 0-1 /hpf Urine Bacteria Occasional (0-1) Nasal Screen MRSA (PCR) A. baumannii (PCR) Chlamy pneumoniae PCR Adenovirus (PCR) B. pertussis DNA (PCR) B.parapertussis DNA PCR Silvia albicans (PCR) C. glabrata (PCR) C. krusei (PCR) C. parapsilosis (PCR) C. tropicalis (PCR) Coronavirus OC43 (PCR) Coronavirus HKU1 (PCR) Coronavirus 229E (PCR) SARS-CoV-2 (PCR) Coronavirus NL63 (PCR) Enterobacteriac sp PCR E. cloacae complex PCR Enterococcus sp PCR E. coli (PCR) H. influenzae (PCR) Human Metapneumovir PCR Influenza A (RT-PCR) Influenza Type A (PCR) Influenza B (RT-PCR) Influenza Type B (PCR) Klebsiella oxytoca PCR Klebsiella pneumoniae List. monocytogenes PCR M. pneumoniae (PCR) N. meningitidis (PCR) Parainfluenza 1 (PCR) Parainfluenza 2 (PCR) Parainfluenza 3 (PCR) Parainfluenza 4 (PCR) Proteus species (PCR) RSV (PCR) Entero/Rhino (PCR) Serratia marcescens PCR Staphylococcus sp PCR Staph aureus (PCR) mecA-Methicil Res Gene Streptococcus sp PCR Group A Strep (PCR) Strep agalactiae (PCR) Strep pneumoniae (PCR) P. aeruginosa (PCR) Alex/B-Vanco Res Genes KPC-Carbap Res Gene PCR 05/22/22 05/22/22 05/22/22 04:53 04:53 04:53 WBC RBC Hgb Hct MCV MCH MCHC RDW Plt Count Neut % (Auto) Lymph % (Auto) Amelia % (Auto) Eos % (Auto) Baso % (Auto) Neut # (Auto) Lymph # (Auto) Amelia # (Auto) Eos # (Auto) Baso # (Auto) PT INR APTT D-Dimer ABG pH ABG pCO2 ABG pO2 ABG HCO3 ABG Total CO2 ABG O2 Saturation ABG Base Excess FiO2 Sodium 137 Potassium 4.5 Chloride 105 Carbon Dioxide 21 L BUN 21 H Creatinine 1.12 Estimated GFR > 60 BUN/Creatinine Ratio 18.8 Glucose 251 H Hemoglobin A1c Lactate 1.6 Calcium 7.7 L Magnesium 2.0 Total Bilirubin 1.0 AST 21 ALT 18 Alkaline Phosphatase 60 Total Creatine Kinase CK-MB (CK-2) CK-MB (CK-2) Rel Index Troponin I NT-Pro-B Natriuret Pep 1980 H Total Protein 6.6 Albumin 3.5 Globulin 3.1 Albumin/Globulin Ratio 1.1 Triglycerides 42 Cholesterol 115 L LDL Cholesterol, Calc 70 HDL Cholesterol 37 L Procalcitonin TSH 1.80 Urine Color Urine Appearance Urine pH Ur Specific [place] Urine Protein Urine Glucose (UA) Urine Ketones Urine Occult Blood Urine Nitrate Urine Bilirubin Urine Urobilinogen Ur Leukocyte Esterase Urine RBC Urine WBC Ur Squamous Epith Cells Urine Bacteria Nasal Screen MRSA (PCR) A. baumannii (PCR) Chlamy pneumoniae PCR Adenovirus (PCR) B. pertussis DNA (PCR) B.parapertussis DNA PCR Silvia albicans (PCR) C. glabrata (PCR) C. krusei (PCR) C. parapsilosis (PCR) C. tropicalis (PCR) Coronavirus OC43 (PCR) Coronavirus HKU1 (PCR) Coronavirus 229E (PCR) SARS-CoV-2 (PCR) Coronavirus NL63 (PCR) Enterobacteriac sp PCR E. cloacae complex PCR Enterococcus sp PCR E. coli (PCR) H. influenzae (PCR) Human Metapneumovir PCR Influenza A (RT-PCR) Influenza Type A (PCR) Influenza B (RT-PCR) Influenza Type B (PCR) Klebsiella oxytoca PCR Klebsiella pneumoniae List. monocytogenes PCR M. pneumoniae (PCR) N. meningitidis (PCR) Parainfluenza 1 (PCR) Parainfluenza 2 (PCR) Parainfluenza 3 (PCR) Parainfluenza 4 (PCR) Proteus species (PCR) RSV (PCR) Entero/Rhino (PCR) Serratia marcescens PCR Staphylococcus sp PCR Staph aureus (PCR) mecA-Methicil Res Gene Streptococcus sp PCR Group A Strep (PCR) Strep agalactiae (PCR) Strep pneumoniae (PCR) P. aeruginosa (PCR) Alex/B-Vanco Res Genes KPC-Carbap Res Gene PCR 05/22/22 05/22/22 05/22/22 04:53 09:07 12:47 WBC RBC Hgb Hct MCV MCH MCHC RDW Plt Count Neut % (Auto) Lymph % (Auto) Amelia % (Auto) Eos % (Auto) Baso % (Auto) Neut # (Auto) Lymph # (Auto) Amelia # (Auto) Eos # (Auto) Baso # (Auto) PT INR APTT D-Dimer ABG pH ABG pCO2 ABG pO2 ABG HCO3 ABG Total CO2 ABG O2 Saturation ABG Base Excess FiO2 Sodium Potassium Chloride Carbon Dioxide BUN Creatinine Estimated GFR BUN/Creatinine Ratio Glucose Hemoglobin A1c Lactate Calcium Magnesium Total Bilirubin AST ALT Alkaline Phosphatase Total Creatine Kinase CK-MB (CK-2) CK-MB (CK-2) Rel Index Troponin I 1.320 H* 3.340 H* 3.850 H* NT-Pro-B Natriuret Pep Total Protein Albumin Globulin Albumin/Globulin Ratio Triglycerides Cholesterol LDL Cholesterol, Calc HDL Cholesterol Procalcitonin TSH Urine Color Urine Appearance Urine pH Ur Specific [place] Urine Protein Urine Glucose (UA) Urine Ketones Urine Occult Blood Urine Nitrate Urine Bilirubin Urine Urobilinogen Ur Leukocyte Esterase Urine RBC Urine WBC Ur Squamous Epith Cells Urine Bacteria Nasal Screen MRSA (PCR) A. baumannii (PCR) Chlamy pneumoniae PCR Adenovirus (PCR) B. pertussis DNA (PCR) B.parapertussis DNA PCR Silvia albicans (PCR) C. glabrata (PCR) C. krusei (PCR) C. parapsilosis (PCR) C. tropicalis (PCR) Coronavirus OC43 (PCR) Coronavirus HKU1 (PCR) Coronavirus 229E (PCR) SARS-CoV-2 (PCR) Coronavirus NL63 (PCR) Enterobacteriac sp PCR E. cloacae complex PCR Enterococcus sp PCR E. coli (PCR) H. influenzae (PCR) Human Metapneumovir PCR Influenza A (RT-PCR) Influenza Type A (PCR) Influenza B (RT-PCR) Influenza Type B (PCR) Klebsiella oxytoca PCR Klebsiella pneumoniae List. monocytogenes PCR M. pneumoniae (PCR) N. meningitidis (PCR) Parainfluenza 1 (PCR) Parainfluenza 2 (PCR) Parainfluenza 3 (PCR) Parainfluenza 4 (PCR) Proteus species (PCR) RSV (PCR) Entero/Rhino (PCR) Serratia marcescens PCR Staphylococcus sp PCR Staph aureus (PCR) mecA-Methicil Res Gene Streptococcus sp PCR Group A Strep (PCR) Strep agalactiae (PCR) Strep pneumoniae (PCR) P. aeruginosa (PCR) Alex/B-Vanco Res Genes KPC-Carbap Res Gene PCR 05/22/22 05/22/22 05/22/22 15:03 15:15 17:45 WBC RBC Hgb Hct MCV MCH MCHC RDW Plt Count Neut % (Auto) Lymph % (Auto) Amelia % (Auto) Eos % (Auto) Baso % (Auto) Neut # (Auto) Lymph # (Auto) Amelia # (Auto) Eos # (Auto) Baso # (Auto) PT INR APTT D-Dimer ABG pH 7.35 ABG pCO2 31.1 L ABG pO2 65 L ABG HCO3 17 L ABG Total CO2 18 L ABG O2 Saturation 92 L ABG Base Excess -8.0 L FiO2 65 Sodium Potassium Chloride Carbon Dioxide BUN Creatinine Estimated GFR BUN/Creatinine Ratio Glucose Hemoglobin A1c Lactate Calcium Magnesium Total Bilirubin AST ALT Alkaline Phosphatase Total Creatine Kinase CK-MB (CK-2) CK-MB (CK-2) Rel Index Troponin I 3.330 H* NT-Pro-B Natriuret Pep Total Protein Albumin Globulin Albumin/Globulin Ratio Triglycerides Cholesterol LDL Cholesterol, Calc HDL Cholesterol Procalcitonin TSH Urine Color Urine Appearance Urine pH Ur Specific [place] Urine Protein Urine Glucose (UA) Urine Ketones Urine Occult Blood Urine Nitrate Urine Bilirubin Urine Urobilinogen Ur Leukocyte Esterase Urine RBC Urine WBC Ur Squamous Epith Cells Urine Bacteria Nasal Screen MRSA (PCR) Negative for mrsa A. baumannii (PCR) Chlamy pneumoniae PCR Adenovirus (PCR) B. pertussis DNA (PCR) B.parapertussis DNA PCR Silvia albicans (PCR) C. glabrata (PCR) C. krusei (PCR) C. parapsilosis (PCR) C. tropicalis (PCR) Coronavirus OC43 (PCR) Coronavirus HKU1 (PCR) Coronavirus 229E (PCR) SARS-CoV-2 (PCR) Coronavirus NL63 (PCR) Enterobacteriac sp PCR E. cloacae complex PCR Enterococcus sp PCR E. coli (PCR) H. influenzae (PCR) Human Metapneumovir PCR Influenza A (RT-PCR) Influenza Type A (PCR) Influenza B (RT-PCR) Influenza Type B (PCR) Klebsiella oxytoca PCR Klebsiella pneumoniae List. monocytogenes PCR M. pneumoniae (PCR) N. meningitidis (PCR) Parainfluenza 1 (PCR) Parainfluenza 2 (PCR) Parainfluenza 3 (PCR) Parainfluenza 4 (PCR) Proteus species (PCR) RSV (PCR) Entero/Rhino (PCR) Serratia marcescens PCR Staphylococcus sp PCR Staph aureus (PCR) mecA-Methicil Res Gene Streptococcus sp PCR Group A Strep (PCR) Strep agalactiae (PCR) Strep pneumoniae (PCR) P. aeruginosa (PCR) Alex/B-Vanco Res Genes KPC-Carbap Res Gene PCR 05/22/22 05/22/22 17:45 19:15 WBC RBC Hgb Hct MCV MCH MCHC RDW Plt Count Neut % (Auto) Lymph % (Auto) Amelia % (Auto) Eos % (Auto) Baso % (Auto) Neut # (Auto) Lymph # (Auto) Amelia # (Auto) Eos # (Auto) Baso # (Auto) PT INR APTT 37 H D-Dimer ABG pH ABG pCO2 ABG pO2 ABG HCO3 ABG Total CO2 ABG O2 Saturation ABG Base Excess FiO2 Sodium Potassium Chloride Carbon Dioxide BUN Creatinine Estimated GFR BUN/Creatinine Ratio Glucose Hemoglobin A1c Lactate Calcium Magnesium Total Bilirubin AST ALT Alkaline Phosphatase Total Creatine Kinase CK-MB (CK-2) CK-MB (CK-2) Rel Index Troponin I NT-Pro-B Natriuret Pep Total Protein Albumin Globulin Albumin/Globulin Ratio Triglycerides Cholesterol LDL Cholesterol, Calc HDL Cholesterol Procalcitonin TSH Urine Color Urine Appearance Urine pH Ur Specific [place] Urine Protein Urine Glucose (UA) Urine Ketones Urine Occult Blood Urine Nitrate Urine Bilirubin Urine Urobilinogen Ur Leukocyte Esterase Urine RBC Urine WBC Ur Squamous Epith Cells Urine Bacteria Nasal Screen MRSA (PCR) A. baumannii (PCR) Chlamy pneumoniae PCR Not detected Adenovirus (PCR) Not detected B. pertussis DNA (PCR) Not detected B.parapertussis DNA PCR Not detected Silvia albicans (PCR) C. glabrata (PCR) C. krusei (PCR) C. parapsilosis (PCR) C. tropicalis (PCR) Coronavirus OC43 (PCR) Not detected Coronavirus HKU1 (PCR) Not detected Coronavirus 229E (PCR) Not detected SARS-CoV-2 (PCR) Not detected Coronavirus NL63 (PCR) Not detected Enterobacteriac sp PCR E. cloacae complex PCR Enterococcus sp PCR E. coli (PCR) H. influenzae (PCR) Human Metapneumovir PCR Not detected Influenza A (RT-PCR) Influenza Type A (PCR) Not detected Influenza B (RT-PCR) Influenza Type B (PCR) Not detected Klebsiella oxytoca PCR Klebsiella pneumoniae List. monocytogenes PCR M. pneumoniae (PCR) Not detected N. meningitidis (PCR) Parainfluenza 1 (PCR) Not detected Parainfluenza 2 (PCR) Not detected Parainfluenza 3 (PCR) Not detected Parainfluenza 4 (PCR) Not detected Proteus species (PCR) RSV (PCR) Detected H Entero/Rhino (PCR) Not detected Serratia marcescens PCR Staphylococcus sp PCR Staph aureus (PCR) mecA-Methicil Res Gene Streptococcus sp PCR Group A Strep (PCR) Strep agalactiae (PCR) Strep pneumoniae (PCR) P. aeruginosa (PCR) Alex/B-Vanco Res Genes KPC-Carbap Res Gene PCR Assessment & Plan Assessment and plan (1) Acute decompensated heart failure: Status: Acute Plan: -Continue Lasix/NIPPV -Keep K> 4, Mg+2 > 2 -Holding outpt Entresto, metoprolol, simvastatin, torsemide -Watch QTc on amiodarone/Seroquel combo (2) Positive blood culture: Status: Acute Plan: -This is probably spurious --> follow -Check MRSA (3) Atrial fibrillation with RVR: Status: Chronic Plan: -Continue amiodarone infusion protocol/enoxaparin (4) NSTEMI (non-ST elevated myocardial infarction): Problem details: Type 2 due to ADHF Status: Acute Plan: -Continue enoxaparin/ASA -Resume statin [facility] Time Spent With Patient Critical Care time: I spent a total of 35 minutes of critical care time on this patient's care today; this time is exclusive of procedural time.
--- NOTE | 2022-05-22 21:22 | PC.NURSE ---
Addendum entered by Andree Nunn R.N. 05/23/22 06:46: Respiratory rate increasing to between 50-60, attempting to put patient back on bipap, but patient refusing and pulling mask off. Unable to convince patient to wear bipap. Patient placed on 15L non rebreather. Addendum entered by Andree Nunn R.N. 05/23/22 05:22: At 0430 patient refusing to wear bipap any longer. Placed on 100% nonrebreather with improved results. Original Note: Patient awake and alert, able to make basic needs known. Constantly pulling on bipap mask, but O2 sats stable and heart rate slowly decreasing at present time. Amiodarone bolus infusion finished, and main drip started. Patient reassured constantly as to status. Able to swallow water and pills without difficulty. Urine initially was blood tinged, but now clearing about 3 hours into shift. Positive blood culture informed to Dr. Vera on video conference.
[2022-05-23] VITALS (78 sets, daily range): BP systolic 75–133; BP diastolic 43–78; PULSE 68–128; RESP 12–67; TEMP 30.7–36.4; O2SAT 77–100
[2022-05-23] MEDS: AMIODARONE 360 MG/200 ML PIGGYBACK IV (01:18)
[2022-05-23 02:34] LABS: Add Manual Diff / Slide Review NO; Basophils Absolute Auto 100 /uL (0-100); Basophils Percent Auto 0.4 % (0-2); Eosinophils Absolute Auto 100 /uL (0-450); Eosinophils Percent Auto 0.3 % (2-4); Hematocrit 36.1 % (41-53); Lymphocytes Absolute Auto 1000 /uL (1100-4500); Lymphocytes Percent Auto 6.2 % (25-40); Mean Corpuscular HGB Conc 33.1 % (30-36); Mean Corpuscular Hemoglobin 28.2 PG (26-34); Mean Corpuscular Volume 85.3 fL (80-100); Monocytes Absolute Auto 1300 /uL (0-900); Monocytes Percent Auto 8.1 % (3-14); Neutrophils Absolute Auto 13800 /uL (1500-7000); Platelet Count 227 X10^3/uL (150-400); Red Blood Cell Count 4.24 X10^6/uL (4.5-5.9); Red Cell Distribution Width 15.6 % (11.6-14.8); White Blood Cell Count 16.3 X10^3/uL (4.5-11.0)
[2022-05-23 02:47] LABS: PTT Partial Thromboplastin Tim 37 SECONDS (26-36)
[2022-05-23 02:56] LABS: Alanine Aminotransferase 19 IU/L (<50); Albumin 3.5 g/dL (3.5-5.0); Albumin Globulin Ratio 1.2 (1.0-2.8); Alkaline Phosphatase 53 U/L (38-126); Aspartate Aminotransferase 23 IU/L (17-59); BUN Creatinine Ratio 21.4 (6-22); Blood Urea Nitrogen 28 mg/dL (9-20); Calcium 7.9 mg/dL (8.4-10.2); Carbon Dioxide 18 mmol/L (22-32); Chloride 105 mmol/L (98-107); Estimated Glomerular Filt Rate 57 mL/min (>60); Glucose 248 mg/dL (80-110); HEMOLYSIS < 15 (0-50); Magnesium 2.1 mg/dL (1.6-2.3); Potassium 3.8 mmol/L (3.4-5.1); Sodium 135 mmol/L (137-145); Total Protein 6.5 g/dL (6.3-8.2)
[2022-05-23] MEDS: INSULIN REGULAR 100 UNIT/ML 3 ML VIAL SUBCUT ×3 (05:44→18:12)
[2022-05-23] MEDS: FUROSEMIDE 40 MG/4 ML VIAL IV ×4 (08:40→20:34)
[2022-05-23] MEDS: ENOXAPARIN 150 MG/ML SYRINGE 125 MG SUBCUT (08:40)
[2022-05-23] MEDS: FLUoxetine 20 MG CAPSULE PO (08:47)
[2022-05-23] MEDS: ASPIRIN EC 81 MG TABLET PO (08:47)
[2022-05-23] MEDS: TAMSULOSIN 0.4 MG CAPSULE PO ×2 (08:47→20:35)
[2022-05-23] MEDS: FINASTERIDE 5 MG TABLET PO (08:47)
[2022-05-23] MEDS: POTASSIUM CHLORIDE 10 MEQ TAB PO (08:47)
[2022-05-23] MEDS: INSULIN GLARGINE 100 UNIT/ML 3ML PEN 20 UNIT SUBCUT (08:53)
--- NOTE | 2022-05-23 08:59 | PM.PN.1 ---
Subjective Subjective Date Patient Seen: 05/23/22 Time Patient Seen: 10:00 Interval history: Patient asking for his dad. Having bleeding from the urethral meatus after patinet tugged on foote earlier this morning. Catheter bag with dark bloody urine. Exam Vital Signs (past 8 hours): - 05/23/22 01:00 05/23/22 01:01 05/23/22 01:01 Pulse Rate 76 77 Respiratory Rate 25 H 26 H Blood Pressure 113/66 Pulse Oximetry 96 95 Oxygen Delivery Method Oxygen Flow Rate Fraction of Inspired Oxygen 05/23/22 01:15 05/23/22 01:16 05/23/22 01:16 Pulse Rate 76 77 Respiratory Rate 25 H 24 Blood Pressure 111/51 L Pulse Oximetry 97 96 Oxygen Delivery Method Oxygen Flow Rate Fraction of Inspired Oxygen 05/23/22 01:00 05/23/22 03:00 05/23/22 04:00 Pulse Rate 77 77 Respiratory Rate 25 H 25 H Blood Pressure 101/63 99/56 L Pulse Oximetry 94 97 98 Oxygen Delivery Method BiPAP Oxygen Flow Rate 53 0 Fraction of Inspired Oxygen 05/23/22 02:00 05/23/22 01:00 05/23/22 04:16 Pulse Rate 78 77 Respiratory Rate 21 26 H Blood Pressure 102/62 113/66 Pulse Oximetry 96 95 Oxygen Delivery Method Non -Rebreather Oxygen Flow Rate Fraction of Inspired Oxygen 05/23/22 03:25 05/23/22 05:00 05/23/22 05:00 Pulse Rate 74 Respiratory Rate 57 H Blood Pressure 95/59 L 100/50 L Pulse Oximetry 96 93 Oxygen Delivery Method Non -Rebreather Oxygen Flow Rate 10 Fraction of Inspired Oxygen 50 05/23/22 05:25 05/23/22 06:00 05/23/22 07:00 Pulse Rate 78 68 Respiratory Rate 28 H 38 H Blood Pressure 100/57 L 104/65 Pulse Oximetry 97 97 Oxygen Delivery Method Non -Rebreather Oxygen Flow Rate 10 Fraction of Inspired Oxygen 05/23/22 07:00 05/23/22 07:15 05/23/22 07:15 Pulse Rate 75 74 Respiratory Rate 55 H 61 H Blood Pressure 94/70 Pulse Oximetry 97 97 Oxygen Delivery Method Oxygen Flow Rate Fraction of Inspired Oxygen 05/23/22 07:30 05/23/22 07:31 05/23/22 07:31 Pulse Rate 78 84 Respiratory Rate 59 H 40 H Blood Pressure 88/69 L Pulse Oximetry 96 95 Oxygen Delivery Method Oxygen Flow Rate Fraction of Inspired Oxygen 05/23/22 07:45 05/23/22 07:50 05/23/22 07:50 Pulse Rate 80 80 Respiratory Rate 31 H 56 H Blood Pressure 108/65 Pulse Oximetry 94 96 Oxygen Delivery Method Oxygen Flow Rate Fraction of Inspired Oxygen 05/23/22 08:00 05/23/22 08:00 05/23/22 08:15 Pulse Rate 79 Respiratory Rate 58 H Blood Pressure 114/53 L 110/63 Pulse Oximetry 97 Oxygen Delivery Method Oxygen Flow Rate Fraction of Inspired Oxygen 05/23/22 08:15 05/23/22 08:30 05/23/22 08:31 Pulse Rate 77 78 78 Respiratory Rate 61 H 56 H 55 H Blood Pressure Pulse Oximetry 97 97 97 Oxygen Delivery Method Oxygen Flow Rate Fraction of Inspired Oxygen 05/23/22 08:31 05/23/22 08:45 05/23/22 08:45 Pulse Rate 78 Respiratory Rate 48 H Blood Pressure 114/66 110/61 Pulse Oximetry 98 Oxygen Delivery Method Oxygen Flow Rate Fraction of Inspired Oxygen Fraction of Inspired Oxygen 50 Oxygen Delivery Method Non -Rebreather Oxygen Flow Rate 10 Narrative Exam Narrative: General: Patient is a large framed morbidly obese male, on nonrebreather, cognitively impaired at baseline, in no acute distress at this time. HEENT: Normocephalic, atraumatic, extraocular muscles intact, mucous membranes are dry. Neck is supple and symmetric, trachea is midline, no adenopathy, no thyroid enlargement, nontender, no masses palpated. Negative for JVD Chest: Respiratory function with minimal exertion results in significant tachypnea and work of breathing. Lungs: Auscultation of all lung rothman are decreased equal, poor air exchange without obvious adventitious sounds, wheezes, rhonchi, or rales. Cardio: irregular rate and rhythm without murmur, rubs, or gallops, no carotid bruit, no cardiac pulsations present. Abdomen: Soft nontender, negative for organomegaly, or masses. Bowel sounds are present in all 4 quadrants without guarding or rebound, no CVA tenderness. : Boris blood from urethral meatus around foote, with dark bloody urine in foote bag Musculoskeletal: Muscle tone appears equal within normal limits for patient, no deformity, crepitus, effusions, cyanosis, clubbing. Positive bilateral +4 pitting edema to lower extremity. Full range of motion intact radial and pedal pulses are normal. Skin: Warm dry and intact without rashes, ulcerations or petechiae.positive venous stasis encircling bilateral calves. Neuro: Responds to verbal stimuli, moves all extremities, sensation to touch intact. Psych: Patient has a well-kept appearance, impaired cognition/mental status, at baseline per bedside RN who spoke with the Family in ED which is oriented x1. Objective Labs Result Diagrams: 05/23/22 02:28 05/23/22 10:30 Labs: Laboratory Results - last 24 hr 05/21/22 05/22/22 05/22/22 22:24 09:07 12:47 WBC RBC Hgb Hct MCV MCH MCHC RDW Plt Count Neut % (Auto) Lymph % (Auto) [place] % (Auto) Eos % (Auto) Baso % (Auto) Neut # (Auto) Lymph # (Auto) [place] # (Auto) Eos # (Auto) Baso # (Auto) APTT ABG pH ABG pCO2 ABG pO2 ABG HCO3 ABG Total CO2 ABG O2 Saturation ABG Base Excess FiO2 Sodium Potassium Chloride Carbon Dioxide BUN Creatinine Estimated GFR BUN/Creatinine Ratio Glucose Calcium Magnesium Total Bilirubin AST ALT Alkaline Phosphatase Troponin I 3.340 H* 3.850 H* Total Protein Albumin Globulin Albumin/Globulin Ratio Nasal Screen MRSA (PCR) A. baumannii (PCR) Not detected Chlamy pneumoniae PCR Adenovirus (PCR) B. pertussis DNA (PCR) B.parapertussis DNA PCR Silvia albicans (PCR) Not detected C. glabrata (PCR) Not detected C. krusei (PCR) Not detected C. parapsilosis (PCR) Not detected C. tropicalis (PCR) Not detected Coronavirus OC43 (PCR) Coronavirus HKU1 (PCR) Coronavirus 229E (PCR) SARS-CoV-2 (PCR) Coronavirus NL63 (PCR) Enterobacteriac sp PCR Not detected E. cloacae complex PCR Not detected Enterococcus sp PCR Not detected E. coli (PCR) Not detected H. influenzae (PCR) Not detected Human Metapneumovir PCR Influenza Type A (PCR) Influenza Type B (PCR) Klebsiella oxytoca PCR Not detected Klebsiella pneumoniae Not detected List. monocytogenes PCR Not detected M. pneumoniae (PCR) N. meningitidis (PCR) Not detected Parainfluenza 1 (PCR) Parainfluenza 2 (PCR) Parainfluenza 3 (PCR) Parainfluenza 4 (PCR) Proteus species (PCR) Not detected RSV (PCR) Entero/Rhino (PCR) Serratia marcescens PCR Not detected Staphylococcus sp PCR Detected H Staph aureus (PCR) Not detected mecA-Methicil Res Gene Detected H Streptococcus sp PCR Not detected Group A Strep (PCR) Not detected Strep agalactiae (PCR) Not detected Strep pneumoniae (PCR) Not detected P. aeruginosa (PCR) Not detected Alex/B-Vanco Res Genes Not Reportable KPC-Carbap Res Gene PCR Not Reportable 05/22/22 05/22/22 05/22/22 15:03 15:15 17:45 WBC RBC Hgb Hct MCV MCH MCHC RDW Plt Count Neut % (Auto) Lymph % (Auto) [place] % (Auto) Eos % (Auto) Baso % (Auto) Neut # (Auto) Lymph # (Auto) [place] # (Auto) Eos # (Auto) Baso # (Auto) APTT ABG pH 7.35 ABG pCO2 31.1 L ABG pO2 65 L ABG HCO3 17 L ABG Total CO2 18 L ABG O2 Saturation 92 L ABG Base Excess -8.0 L FiO2 65 Sodium Potassium Chloride Carbon Dioxide BUN Creatinine Estimated GFR BUN/Creatinine Ratio Glucose Calcium Magnesium Total Bilirubin AST ALT Alkaline Phosphatase Troponin I 3.330 H* Total Protein Albumin Globulin Albumin/Globulin Ratio Nasal Screen MRSA (PCR) Negative for mrsa A. baumannii (PCR) Chlamy pneumoniae PCR Adenovirus (PCR) B. pertussis DNA (PCR) B.parapertussis DNA PCR Silvia albicans (PCR) C. glabrata (PCR) C. krusei (PCR) C. parapsilosis (PCR) C. tropicalis (PCR) Coronavirus OC43 (PCR) Coronavirus HKU1 (PCR) Coronavirus 229E (PCR) SARS-CoV-2 (PCR) Coronavirus NL63 (PCR) Enterobacteriac sp PCR E. cloacae complex PCR Enterococcus sp PCR E. coli (PCR) H. influenzae (PCR) Human Metapneumovir PCR Influenza Type A (PCR) Influenza Type B (PCR) Klebsiella oxytoca PCR Klebsiella pneumoniae List. monocytogenes PCR M. pneumoniae (PCR) N. meningitidis (PCR) Parainfluenza 1 (PCR) Parainfluenza 2 (PCR) Parainfluenza 3 (PCR) Parainfluenza 4 (PCR) Proteus species (PCR) RSV (PCR) Entero/Rhino (PCR) Serratia marcescens PCR Staphylococcus sp PCR Staph aureus (PCR) mecA-Methicil Res Gene Streptococcus sp PCR Group A Strep (PCR) Strep agalactiae (PCR) Strep pneumoniae (PCR) P. aeruginosa (PCR) Alex/B-Vanco Res Genes KPC-Carbap Res Gene PCR 05/22/22 05/22/22 05/23/22 17:45 19:15 02:28 WBC 16.3 H RBC 4.24 L Hgb 12.0 L Hct 36.1 L MCV 85.3 MCH 28.2 MCHC 33.1 RDW 15.6 H Plt Count 227 Neut % (Auto) 85.0 H Lymph % (Auto) 6.2 L [place] % (Auto) 8.1 Eos % (Auto) 0.3 L Baso % (Auto) 0.4 Neut # (Auto) 03514 H Lymph # (Auto) 1000 L [place] # (Auto) 1300 H Eos # (Auto) 100 Baso # (Auto) 100 APTT 37 H ABG pH ABG pCO2 ABG pO2 ABG HCO3 ABG Total CO2 ABG O2 Saturation ABG Base Excess FiO2 Sodium Potassium Chloride Carbon Dioxide BUN Creatinine Estimated GFR BUN/Creatinine Ratio Glucose Calcium Magnesium Total Bilirubin AST ALT Alkaline Phosphatase Troponin I Total Protein Albumin Globulin Albumin/Globulin Ratio Nasal Screen MRSA (PCR) A. baumannii (PCR) Chlamy pneumoniae PCR Not detected Adenovirus (PCR) Not detected B. pertussis DNA (PCR) Not detected B.parapertussis DNA PCR Not detected Silvia albicans (PCR) C. glabrata (PCR) C. krusei (PCR) C. parapsilosis (PCR) C. tropicalis (PCR) Coronavirus OC43 (PCR) Not detected Coronavirus HKU1 (PCR) Not detected Coronavirus 229E (PCR) Not detected SARS-CoV-2 (PCR) Not detected Coronavirus NL63 (PCR) Not detected Enterobacteriac sp PCR E. cloacae complex PCR Enterococcus sp PCR E. coli (PCR) H. influenzae (PCR) Human Metapneumovir PCR Not detected Influenza Type A (PCR) Not detected Influenza Type B (PCR) Not detected Klebsiella oxytoca PCR Klebsiella pneumoniae List. monocytogenes PCR M. pneumoniae (PCR) Not detected N. meningitidis (PCR) Parainfluenza 1 (PCR) Not detected Parainfluenza 2 (PCR) Not detected Parainfluenza 3 (PCR) Not detected Parainfluenza 4 (PCR) Not detected Proteus species (PCR) RSV (PCR) Detected H Entero/Rhino (PCR) Not detected Serratia marcescens PCR Staphylococcus sp PCR Staph aureus (PCR) mecA-Methicil Res Gene Streptococcus sp PCR Group A Strep (PCR) Strep agalactiae (PCR) Strep pneumoniae (PCR) P. aeruginosa (PCR) Alex/B-Vanco Res Genes KPC-Carbap Res Gene PCR 05/23/22 05/23/22 02:28 02:28 WBC RBC Hgb Hct MCV MCH MCHC RDW Plt Count Neut % (Auto) Lymph % (Auto) [place] % (Auto) Eos % (Auto) Baso % (Auto) Neut # (Auto) Lymph # (Auto) [place] # (Auto) Eos # (Auto) Baso # (Auto) APTT 37 H ABG pH ABG pCO2 ABG pO2 ABG HCO3 ABG Total CO2 ABG O2 Saturation ABG Base Excess FiO2 Sodium 135 L Potassium 3.8 Chloride 105 Carbon Dioxide 18 L BUN 28 H Creatinine 1.31 H Estimated GFR 57 L BUN/Creatinine Ratio 21.4 Glucose 248 H Calcium 7.9 L Magnesium 2.1 Total Bilirubin 1.0 AST 23 ALT 19 Alkaline Phosphatase 53 Troponin I Total Protein 6.5 Albumin 3.5 Globulin 3.0 Albumin/Globulin Ratio 1.2 Nasal Screen MRSA (PCR) A. baumannii (PCR) Chlamy pneumoniae PCR Adenovirus (PCR) B. pertussis DNA (PCR) B.parapertussis DNA PCR Silvia albicans (PCR) C. glabrata (PCR) C. krusei (PCR) C. parapsilosis (PCR) C. tropicalis (PCR) Coronavirus OC43 (PCR) Coronavirus HKU1 (PCR) Coronavirus 229E (PCR) SARS-CoV-2 (PCR) Coronavirus NL63 (PCR) Enterobacteriac sp PCR E. cloacae complex PCR Enterococcus sp PCR E. coli (PCR) H. influenzae (PCR) Human Metapneumovir PCR Influenza Type A (PCR) Influenza Type B (PCR) Klebsiella oxytoca PCR Klebsiella pneumoniae List. monocytogenes PCR M. pneumoniae (PCR) N. meningitidis (PCR) Parainfluenza 1 (PCR) Parainfluenza 2 (PCR) Parainfluenza 3 (PCR) Parainfluenza 4 (PCR) Proteus species (PCR) RSV (PCR) Entero/Rhino (PCR) Serratia marcescens PCR Staphylococcus sp PCR Staph aureus (PCR) mecA-Methicil Res Gene Streptococcus sp PCR Group A Strep (PCR) Strep agalactiae (PCR) Strep pneumoniae (PCR) P. aeruginosa (PCR) Alex/B-Vanco Res Genes KPC-Carbap Res Gene PCR PFSH Medical History Actinic keratoses Acute CHF Atrial fibrillation (02/21/15) Benign prostatic hyperplasia BPH (benign prostatic hyperplasia) Cardiomyopathy (02/21/15) Cataracts, bilateral (07/26/17) CHF (congestive heart failure) Chronic neck pain Coronary artery disease Diabetes Hematuria (~2016) History of CVA (cerebrovascular accident) (07/12/16) Hyperlipidemia Hypertension Hypotension Lower extremity edema Peripheral vascular disease PVD (peripheral vascular disease) Rash Renal failure Status post myocardial infarction (1994) Suspicious nevus Systolic CHF Surgical History History of cranioplasty (10/30/16) History of surgery on arm History of vasectomy S/P TURP (10/19/13) Status post craniectomy (07/12/16) Family History Mother Age: 92 Dementia Father Cancer Social History household members: spouse Smoking Status: Former smoker second hand exposure: No alcohol intake: former substance use type: does not use Assessment & Plan Assessment & Plan narrative: 1. Cardiogenic shock, acute present on admission -BP dropped to 70/40 despite 3L saline boluses in ED, suspect due to worsened EF exacerbated by RSV -Cardiology consulted who recommended dobutamine with amio drip, transfer to higher level of care for cardiology consultation -continue dobutamine and amio drip -daily EKG's -BP now stable 2. Acute respiratory failure, secondary to RSV infection and systolic CHF exacerbation, acute present on admission -HFrEF, appears to worsened from 30 to 20% based on review of echo May 2021 -The patient's noted that he takes torsemide 20 mg tabs 3-4 tablets (80-120mg) per day as needed (HOLDING) -Echo 05/22: EF 20-25%. LVEF has decreased since prior study. There is mild to moderate global hypokinesis of the left ventricle. But, the inferior, septum and part of apex are severely hypokinetic to akinetic. -BNP 1540 -Resp PCR positive for RSV, procal negative so will stop abx -Patient is not on any home O2, now requiring 4 L oxygen for an O2 saturation of 90%-that has now since change the patient is on high-flow 50 L at 65% RR 22 O2 saturation 96% -continue lasix 40mg IV BID -Foote Placed for accurate I&O and diuresis -Strict I&O, daily weights, fluid restriction 2000 cc, low-sodium diet -On admit Mag 2.1, potassium 4.5- Monitor closely 3. Atrial fibrillation with RVR component resolved, acute on chronic, present on admission -SVT HR in the 150's, RR 40-50's, requiring cardioversion x2. Cardioversion successful in converting to sinus rhythm. -continue metoprolol, Eliquis in AM Monitor for hypotension -continue telemetry -Cardiology recommended in 2020 internally planted defibrillator -amio drip as above to prevent converting to Afib RVR with dobutamine use -daily EKG's to monitor QTc 4. NSTEMI, acute, history myocardial infarction, present on admission -initial troponin 0.037, krunal to 3.850 then downtrended to 3.330, patient denied CP -continue lovenox 1mg/kg BID for at least 48 hours -transfer as above 5. Chronic kidney disease stage G3a, stable, present on admission -on admit bicarb 20, BUN 24, creatinine 1.39, glucose 211, GFR 54. -per review of 02/18/2022 primary care records patient's baseline BUN 27, creatinine 1.28, GFR 59, A1c 7.0 -Closely monitor renal function -avoid nephrotoxic medications 5. Essential hypertension, with a history of cardiomyopathy, CAD, PVD, and venous insufficiency, chronic, present on admission - B/P's 74/49, 89/54, 92/60 -The patient's noted that he takes torsemide 20 mg tabs 3-4 tablets (80-120mg) per day as needed-this very well may be contributing to his hypotension. Patient has seen his primary with frequent complaints of hypotension. -continue metoprolol, Entresto (angio II receptor andry)- monitor & Consider holding for hypotension -orthostatics q.4 hours while awake to start tomorrow morning. 6. Insulin-dependent type 2 diabetes, with polyneuropathy, hyperglycemia, acute on chronic, with hyperlipidemia, chronic, present on admission -glucose 211 on admit, last A1c January 2022 7.0, ordered A1c on admit 6.2-patient over the age of 70 should have a permissive A1c of up to 7.5 to avoid hypo glycemia -Continue statin -Carb controlled diet -continue lantus 20mg BID and SSI 7. 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 -Patient's is his caregiver -Continue fluoxetine, hold seroquel due to amio use 8. 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 Constipation, chronic, likely secondary to CVA, present on admission -recommend continuing with senna 10. Morbid obesity, acute on chronic, present on admission -as evidence by BMI of 38.4 -dietary consult ordered regarding nutritional education and information for dietary, lifestyle, exercise, and weight changes. -the patient is at much higher risk for medical and surgical complications due to obesity as it relates to chronic illnesses:, and his acute illnesses. The patient's obesity increases the difficulty and complexity of medical and/or surgical interventions, management and increases the chances of poor outcome such as morbidity and mortality as well as impaired wound healing. Code status:Full Critical Care Admit: >30min time spent. Surrogate decision maker: , Esperanza GONZALEZ PCR:Negative DVT/VTE prophylaxis: Lovenox Disposition: Pending transfer to higher level of care. Time Spent With Patient Critical Care time: I spent a total of [] minutes of critical care time on this patient's care today; this time is exclusive of procedural time. Quality VTE Deep Vein Thrombosis/Pulmonary Embolism Present on Admission: No
--- NOTE | 2022-05-23 09:13 | P.TELICUPN_ITS ---
Subjective Subjective IF CAMERA ACTIVATED, patient seen via real-time interactive audiovisual communication: Camera activated Consent obtained for tele-alignment specialist care: Yes Patient Location: ICU Provider location (State): [place] Other participants/roles: hospitalist, RN Interval history: Patient summary: 71 yo man with PMH of CAD, HFrEF (LV EF of 20%), morbid obesity, HTN, cardiomyopathy, PVD, Afib in eliquis, h/o of hemorrhagic CVA s/p craniotomy with residual physical and cognitive deficits (dependent on for ADL support), BPH, T2DM, HL, and CKD admitted 05/22 for SOB. Pulm CTA neg for PE but did show pulmonary edema, bilat small pleural effusions and scattered GGos. Pt. developed unstbale SVT with HR in the 150's requiring cardioversion in ED. Pt. started on Amio drip. In ICU patient started on Dobutamine drip 2.5 mcg/kg/min and lasix 40 mg IV BID. Blood cultures 06/29 is + for Staph so patient started on Vanco. Recent events: -overnight patient switched from NIPPV to 100% NRBM -BP 90s-110s/50-60s, Hr in the 70's, Amio drip due to around noon -I/Os 1.4L in/ 1.3 L out with net 0.1 L in -according to nurse, patient's hematuria lastn ight improved but then he pulled at his Ortiz this morning and now hematuria has worsened. -per bedside nurse, patint is restless and anxious at times Current Medications Current Medications Medications: Home Medications insulin regular human 100 unit/mL injection solution (Humulin R Regular U-100 Insulin) See Rx Instructions SUBCUT TIDAC #10 mL 11/05/17 [Rx Confirmed 05/22/22] Syringes: Ultra Fine Insulin Syringe w/Needle #100 ea 02/14/18 [Rx Confirmed 05/22/22] Light pressure salma hose #1 ea 07/05/18 [Rx Confirmed 05/22/22] Donut Pillow #1 ea 07/06/18 [Rx Confirmed 05/22/22] Medium to high pressure socks #1 ea 09/06/18 [Rx Confirmed 05/22/22] Lancet: Device 1 st INJ QID 02/23/19 [History Confirmed 05/22/22] finasteride 5 mg tablet See Rx Instructions .Route .COMPLEX #90 tabs 08/04/21 [Rx Confirmed 05/22/22] simvastatin 40 mg tablet See Rx Instructions .Route .COMPLEX #90 tabs 09/05/21 [Rx Confirmed 05/22/22] insulin lispro 100 unit/mL subcutaneous pen (Humalog KwikPen (U-100) Insulin) 5 unit (0.05 mL) SUBCUT DAILY #15 mL 09/08/21 [Rx Confirmed 05/22/22] cyclobenzaprine 10 mg tablet See Rx Instructions .Route .COMPLEX #90 tabs 09/30/21 [Rx Confirmed 05/22/22] tamsulosin 0.4 mg capsule See Rx Instructions .Route .COMPLEX #180 caps 12/05/21 [Rx Confirmed 05/22/22] polyethylene glycol 3350 17 gram oral powder packet See Rx Instructions .Route .COMPLEX #30 ea 12/12/21 [Rx Confirmed 05/22/22] metoprolol succinate 25 mg tablet,extended release 24 hr 25 mg PO DAILY #90 tabs 01/08/22 [Rx Confirmed 05/22/22] potassium chloride 10 mEq capsule,extended release See Rx Instructions .Route .COMPLEX #180 caps 02/02/22 [Rx Confirmed 05/22/22] pen needle, diabetic 31 gauge x 5/16 (BD Ultra-Fine Short Pen Needle) #100 ea 03/03/22 [Rx Confirmed 05/22/22] fluoxetine 20 mg capsule See Rx Instructions .Route .COMPLEX #90 caps 03/26/22 [Rx Confirmed 05/22/22] Lantus Solostar U-100 Insulin 100 unit/mL (3 mL) subcutaneous pen (insulin glargine) See Rx Instructions .Route .COMPLEX #30 mL 04/27/22 [Rx Confirmed 05/22/22] blood sugar diagnostic (OneTouch Verio test strips) See Rx Instructions .Route .COMPLEX #300 strips 04/28/22 [Rx Confirmed 05/22/22] hydrocodone 5 mg-acetaminophen 325 mg tablet 1 tab PO Q6H #120 tabs 05/07/22 [Rx Confirmed 05/22/22] Entresto 12 mg PO BID 05/22/22 [History Confirmed 05/22/22] apixaban 2.5 mg tablet (Eliquis) 2.5 mg PO BID 05/22/22 [History Confirmed 05/22/22] quetiapine 25 mg tablet 12.5 mg QPM 05/22/22 [History Confirmed 05/22/22] torsemide 20 mg tablet See Rx Instructions .Route .COMPLEX PRN (Drug) Ingestion 05/22/22 [History Confirmed 05/22/22] Visit Medications (administered) Generic Name Dose Route Start Last Admin Trade Name Freshantanu PRN Reason Stop Dose Admin Aspirin 81 mg 05/22/22 09:00 05/23/22 08:47 Aspirin Ec 81 Mg Tablet PO 81 mg DAILY SHAUN Administration Atorvastatin Calcium 20 mg 05/22/22 21:00 05/22/22 20:42 Atorvastatin 20 Mg Tablet PO 20 mg BEDTIME SHAUN Administration Enoxaparin Sodium 125 mg 05/22/22 21:00 05/23/22 08:40 Enoxaparin 150 Mg/Ml Syringe SUBCUT 125 mg BID SHAUN Administration Finasteride 5 mg 05/22/22 09:00 05/23/22 08:47 Finasteride 5 Mg Tablet PO 5 mg DAILY SHAUN Administration Fluoxetine HCl 20 mg 05/22/22 09:00 05/23/22 08:47 Fluoxetine 20 Mg Capsule PO 20 mg DAILY SHAUN Administration Furosemide 40 mg 05/22/22 16:00 05/23/22 08:40 Furosemide 40 Mg/4 Ml Vial IV 40 mg 1600,0800 SHAUN Administration Vancomycin HCl/Dextrose 1,500 mg in 300 mls @ 200 mls/hr 05/22/22 20:00 05/22/22 22:33 Vancomycin IV Infused Q18H SHAUN Infusion Amiodarone HCl/Dextrose 360 mg in 200 mls @ 16.7 mls/hr 05/23/22 00:00 05/23/22 01:18 Nexterone IV 05/23/22 11:59 0.5 mls/hr CONT SHAUN 0.5 mls/hr Administration Protocol Dobutamine HCl/Dextrose 250 mg in 250 mls @ 18.525 mls/hr 05/22/22 17:45 05/22/22 18:39 Dobutamine 250 Mg In D5w IV 2.5 mcg/kg/min TITRATE SHAUN 18.525 mls/hr Administration Protocol 2.5 MCG/KG/MIN Insulin Glargine 20 unit 05/22/22 09:00 05/23/22 08:53 Insulin Glargine 100 Unit/Ml 3ml Pen SUBCUT 20 unit BID SHAUN Administration Insulin Human Regular 0 unit 05/22/22 17:15 05/23/22 05:44 Insulin Regular 100 Unit/Ml 3 Ml Vial SUBCUT 3 unit Q6H SHAUN Administration Protocol Potassium Chloride 10 meq 05/22/22 08:00 05/23/22 08:47 Potassium Chloride 10 Meq Tab PO 10 meq BIDWM SHAUN Administration Sennosides 17.2 mg 05/22/22 21:00 05/22/22 20:42 Sennosides 8.6 Mg Tablet PO 17.2 mg BEDTIME SHAUN Administration Tamsulosin HCl 0.4 mg 05/22/22 09:00 05/23/22 08:47 Tamsulosin 0.4 Mg Capsule PO 0.4 mg BID SHAUN Administration Objective Ventilator Parameters: Ventilator Settings FiO2 65 Labs Result Diagrams: 05/23/22 02:28 05/23/22 02:28 Labs: Laboratory Results - last 24 hr 05/21/22 05/22/22 05/22/22 22:24 09:07 12:47 WBC RBC Hgb Hct MCV MCH MCHC RDW Plt Count Neut % (Auto) Lymph % (Auto) Crowley % (Auto) Eos % (Auto) Baso % (Auto) Neut # (Auto) Lymph # (Auto) Crowley # (Auto) Eos # (Auto) Baso # (Auto) APTT ABG pH ABG pCO2 ABG pO2 ABG HCO3 ABG Total CO2 ABG O2 Saturation ABG Base Excess FiO2 Sodium Potassium Chloride Carbon Dioxide BUN Creatinine Estimated GFR BUN/Creatinine Ratio Glucose Calcium Magnesium Total Bilirubin AST ALT Alkaline Phosphatase Troponin I 3.340 H* 3.850 H* Total Protein Albumin Globulin Albumin/Globulin Ratio Nasal Screen MRSA (PCR) A. baumannii (PCR) Not detected Chlamy pneumoniae PCR Adenovirus (PCR) B. pertussis DNA (PCR) B.parapertussis DNA PCR Silvia albicans (PCR) Not detected C. glabrata (PCR) Not detected C. krusei (PCR) Not detected C. parapsilosis (PCR) Not detected C. tropicalis (PCR) Not detected Coronavirus OC43 (PCR) Coronavirus HKU1 (PCR) Coronavirus 229E (PCR) SARS-CoV-2 (PCR) Coronavirus NL63 (PCR) Enterobacteriac sp PCR Not detected E. cloacae complex PCR Not detected Enterococcus sp PCR Not detected E. coli (PCR) Not detected H. influenzae (PCR) Not detected Human Metapneumovir PCR Influenza Type A (PCR) Influenza Type B (PCR) Klebsiella oxytoca PCR Not detected Klebsiella pneumoniae Not detected List. monocytogenes PCR Not detected M. pneumoniae (PCR) N. meningitidis (PCR) Not detected Parainfluenza 1 (PCR) Parainfluenza 2 (PCR) Parainfluenza 3 (PCR) Parainfluenza 4 (PCR) Proteus species (PCR) Not detected RSV (PCR) Entero/Rhino (PCR) Serratia marcescens PCR Not detected Staphylococcus sp PCR Detected H Staph aureus (PCR) Not detected mecA-Methicil Res Gene Detected H Streptococcus sp PCR Not detected Group A Strep (PCR) Not detected Strep agalactiae (PCR) Not detected Strep pneumoniae (PCR) Not detected P. aeruginosa (PCR) Not detected Alex/B-Vanco Res Genes Not Reportable KPC-Carbap Res Gene PCR Not Reportable 05/22/22 05/22/22 05/22/22 15:03 15:15 17:45 WBC RBC Hgb Hct MCV MCH MCHC RDW Plt Count Neut % (Auto) Lymph % (Auto) Crowley % (Auto) Eos % (Auto) Baso % (Auto) Neut # (Auto) Lymph # (Auto) Crowley # (Auto) Eos # (Auto) Baso # (Auto) APTT ABG pH 7.35 ABG pCO2 31.1 L ABG pO2 65 L ABG HCO3 17 L ABG Total CO2 18 L ABG O2 Saturation 92 L ABG Base Excess -8.0 L FiO2 65 Sodium Potassium Chloride Carbon Dioxide BUN Creatinine Estimated GFR BUN/Creatinine Ratio Glucose Calcium Magnesium Total Bilirubin AST ALT Alkaline Phosphatase Troponin I 3.330 H* Total Protein Albumin Globulin Albumin/Globulin Ratio Nasal Screen MRSA (PCR) Negative for mrsa A. baumannii (PCR) Chlamy pneumoniae PCR Adenovirus (PCR) B. pertussis DNA (PCR) B.parapertussis DNA PCR Silvia albicans (PCR) C. glabrata (PCR) C. krusei (PCR) C. parapsilosis (PCR) C. tropicalis (PCR) Coronavirus OC43 (PCR) Coronavirus HKU1 (PCR) Coronavirus 229E (PCR) SARS-CoV-2 (PCR) Coronavirus NL63 (PCR) Enterobacteriac sp PCR E. cloacae complex PCR Enterococcus sp PCR E. coli (PCR) H. influenzae (PCR) Human Metapneumovir PCR Influenza Type A (PCR) Influenza Type B (PCR) Klebsiella oxytoca PCR Klebsiella pneumoniae List. monocytogenes PCR M. pneumoniae (PCR) N. meningitidis (PCR) Parainfluenza 1 (PCR) Parainfluenza 2 (PCR) Parainfluenza 3 (PCR) Parainfluenza 4 (PCR) Proteus species (PCR) RSV (PCR) Entero/Rhino (PCR) Serratia marcescens PCR Staphylococcus sp PCR Staph aureus (PCR) mecA-Methicil Res Gene Streptococcus sp PCR Group A Strep (PCR) Strep agalactiae (PCR) Strep pneumoniae (PCR) P. aeruginosa (PCR) Alxe/B-Vanco Res Genes KPC-Carbap Res Gene PCR 05/22/22 05/22/22 05/23/22 17:45 19:15 02:28 WBC 16.3 H RBC 4.24 L Hgb 12.0 L Hct 36.1 L MCV 85.3 MCH 28.2 MCHC 33.1 RDW 15.6 H Plt Count 227 Neut % (Auto) 85.0 H Lymph % (Auto) 6.2 L Crowley % (Auto) 8.1 Eos % (Auto) 0.3 L Baso % (Auto) 0.4 Neut # (Auto) 15800 H Lymph # (Auto) 1000 L Crowley # (Auto) 1300 H Eos # (Auto) 100 Baso # (Auto) 100 APTT 37 H ABG pH ABG pCO2 ABG pO2 ABG HCO3 ABG Total CO2 ABG O2 Saturation ABG Base Excess FiO2 Sodium Potassium Chloride Carbon Dioxide BUN Creatinine Estimated GFR BUN/Creatinine Ratio Glucose Calcium Magnesium Total Bilirubin AST ALT Alkaline Phosphatase Troponin I Total Protein Albumin Globulin Albumin/Globulin Ratio Nasal Screen MRSA (PCR) A. baumannii (PCR) Chlamy pneumoniae PCR Not detected Adenovirus (PCR) Not detected B. pertussis DNA (PCR) Not detected B.parapertussis DNA PCR Not detected Silvia albicans (PCR) C. glabrata (PCR) C. krusei (PCR) C. parapsilosis (PCR) C. tropicalis (PCR) Coronavirus OC43 (PCR) Not detected Coronavirus HKU1 (PCR) Not detected Coronavirus 229E (PCR) Not detected SARS-CoV-2 (PCR) Not detected Coronavirus NL63 (PCR) Not detected Enterobacteriac sp PCR E. cloacae complex PCR Enterococcus sp PCR E. coli (PCR) H. influenzae (PCR) Human Metapneumovir PCR Not detected Influenza Type A (PCR) Not detected Influenza Type B (PCR) Not detected Klebsiella oxytoca PCR Klebsiella pneumoniae List. monocytogenes PCR M. pneumoniae (PCR) Not detected N. meningitidis (PCR) Parainfluenza 1 (PCR) Not detected Parainfluenza 2 (PCR) Not detected Parainfluenza 3 (PCR) Not detected Parainfluenza 4 (PCR) Not detected Proteus species (PCR) RSV (PCR) Detected H Entero/Rhino (PCR) Not detected Serratia marcescens PCR Staphylococcus sp PCR Staph aureus (PCR) mecA-Methicil Res Gene Streptococcus sp PCR Group A Strep (PCR) Strep agalactiae (PCR) Strep pneumoniae (PCR) P. aeruginosa (PCR) Alex/B-Vanco Res Genes KPC-Carbap Res Gene PCR 05/23/22 05/23/22 02:28 02:28 WBC RBC Hgb Hct MCV MCH MCHC RDW Plt Count Neut % (Auto) Lymph % (Auto) Crowley % (Auto) Eos % (Auto) Baso % (Auto) Neut # (Auto) Lymph # (Auto) Crowley # (Auto) Eos # (Auto) Baso # (Auto) APTT 37 H ABG pH ABG pCO2 ABG pO2 ABG HCO3 ABG Total CO2 ABG O2 Saturation ABG Base Excess FiO2 Sodium 135 L Potassium 3.8 Chloride 105 Carbon Dioxide 18 L BUN 28 H Creatinine 1.31 H Estimated GFR 57 L BUN/Creatinine Ratio 21.4 Glucose 248 H Calcium 7.9 L Magnesium 2.1 Total Bilirubin 1.0 AST 23 ALT 19 Alkaline Phosphatase 53 Troponin I Total Protein 6.5 Albumin 3.5 Globulin 3.0 Albumin/Globulin Ratio 1.2 Nasal Screen MRSA (PCR) A. baumannii (PCR) Chlamy pneumoniae PCR Adenovirus (PCR) B. pertussis DNA (PCR) B.parapertussis DNA PCR Silvia albicans (PCR) C. glabrata (PCR) C. krusei (PCR) C. parapsilosis (PCR) C. tropicalis (PCR) Coronavirus OC43 (PCR) Coronavirus HKU1 (PCR) Coronavirus 229E (PCR) SARS-CoV-2 (PCR) Coronavirus NL63 (PCR) Enterobacteriac sp PCR E. cloacae complex PCR Enterococcus sp PCR E. coli (PCR) H. influenzae (PCR) Human Metapneumovir PCR Influenza Type A (PCR) Influenza Type B (PCR) Klebsiella oxytoca PCR Klebsiella pneumoniae List. monocytogenes PCR M. pneumoniae (PCR) N. meningitidis (PCR) Parainfluenza 1 (PCR) Parainfluenza 2 (PCR) Parainfluenza 3 (PCR) Parainfluenza 4 (PCR) Proteus species (PCR) RSV (PCR) Entero/Rhino (PCR) Serratia marcescens PCR Staphylococcus sp PCR Staph aureus (PCR) mecA-Methicil Res Gene Streptococcus sp PCR Group A Strep (PCR) Strep agalactiae (PCR) Strep pneumoniae (PCR) P. aeruginosa (PCR) Alex/B-Vanco Res Genes KPC-Carbap Res Gene PCR Exam Vital Signs (past 8 hours): - 05/23/22 01:15 05/23/22 01:16 05/23/22 01:16 Pulse Rate 76 77 Respiratory Rate 25 H 24 Blood Pressure 111/51 L Pulse Oximetry 97 96 Oxygen Delivery Method Oxygen Flow Rate Fraction of Inspired Oxygen 05/23/22 03:00 05/23/22 04:00 05/23/22 02:00 Pulse Rate 77 77 78 Respiratory Rate 25 H 25 H 21 Blood Pressure 101/63 99/56 L 102/62 Pulse Oximetry 97 98 96 Oxygen Delivery Method Oxygen Flow Rate 0 Fraction of Inspired Oxygen 05/23/22 04:16 05/23/22 03:25 05/23/22 05:00 Pulse Rate 74 Respiratory Rate 57 H Blood Pressure 95/59 L 100/50 L Pulse Oximetry 96 Oxygen Delivery Method Non -Rebreather Oxygen Flow Rate Fraction of Inspired Oxygen 50 05/23/22 05:00 05/23/22 05:25 05/23/22 06:00 Pulse Rate 78 68 Respiratory Rate 28 H 38 H Blood Pressure 100/57 L Pulse Oximetry 93 97 97 Oxygen Delivery Method Non -Rebreather Non -Rebreather Oxygen Flow Rate 10 10 Fraction of Inspired Oxygen 05/23/22 07:00 05/23/22 07:00 05/23/22 07:15 Pulse Rate 75 Respiratory Rate 55 H Blood Pressure 104/65 94/70 Pulse Oximetry 97 Oxygen Delivery Method Oxygen Flow Rate Fraction of Inspired Oxygen 05/23/22 07:15 05/23/22 07:30 05/23/22 07:31 Pulse Rate 74 78 Respiratory Rate 61 H 59 H Blood Pressure 88/69 L Pulse Oximetry 97 96 Oxygen Delivery Method Oxygen Flow Rate Fraction of Inspired Oxygen 05/23/22 07:31 05/23/22 07:45 05/23/22 07:50 Pulse Rate 84 80 Respiratory Rate 40 H 31 H Blood Pressure 108/65 Pulse Oximetry 95 94 Oxygen Delivery Method Oxygen Flow Rate Fraction of Inspired Oxygen 05/23/22 07:50 05/23/22 08:00 05/23/22 08:00 Pulse Rate 80 79 Respiratory Rate 56 H 58 H Blood Pressure 114/53 L Pulse Oximetry 96 97 Oxygen Delivery Method Oxygen Flow Rate Fraction of Inspired Oxygen 05/23/22 08:15 05/23/22 08:15 05/23/22 08:30 Pulse Rate 77 78 Respiratory Rate 61 H 56 H Blood Pressure 110/63 Pulse Oximetry 97 97 Oxygen Delivery Method Oxygen Flow Rate Fraction of Inspired Oxygen 05/23/22 08:31 05/23/22 08:31 05/23/22 08:45 Pulse Rate 78 Respiratory Rate 55 H Blood Pressure 114/66 110/61 Pulse Oximetry 97 Oxygen Delivery Method Oxygen Flow Rate Fraction of Inspired Oxygen 05/23/22 08:45 Pulse Rate 78 Respiratory Rate 48 H Blood Pressure Pulse Oximetry 98 Oxygen Delivery Method Oxygen Flow Rate Fraction of Inspired Oxygen Fraction of Inspired Oxygen 50 Oxygen Delivery Method Non -Rebreather Oxygen Flow Rate 10 Narrative Exam Narrative: Patient seen sitting up in bed. Resp monitor says RR of 40-50's but when I measured, RR Is actually 25-30. Pt confused but cooperative, not in any acute distress Quality TeleICU VTE Deep Vein Thrombosis/Pulmonary Embolism Present on Admission: No Assessment & Plan Assessment & Plan narrative: Assessment low output heart failure [address] [address] Teleintensivist Consult Note Patient: Jackie Hurley Jr MR#: [id number] : 1950 Acct:[id number] Age/Sex: 71 / M ? Date of Service: 05/21/22 Provider:?Kevin Vera MD ADDENDUMContinue vancomycin for (+) blood culture pending final result/MRSA PCR Addendum Documented By: Kevin Vera MD 05/22/222123 Addendum Signed By: <Electronically signed by Kevin Vrea MD> 05/22/222123 History of Present Illness Consult details IF CAMERA ACTIVATED, patient seen via real-time interactive audiovisual communication: Camera activated Chief complaint: SOB, Congestive heart failure Consent obtained for tele-alignment specialist care: Yes Patient Location: ICU Provider location (State): [place] Other participants/roles: RN Narrative: 71-year-old male with PMHx of CAD/[place], HFrEF (LVEF% of 20), morbid obesity,HTN, cardiomyopathy, PVD, atrial fibrillation with RVR on Eliquis, hemorrhagic CVA/craniotomy with profound residual physical and cognitive deficits (completely dependent on for ADL support), BPH, T2DM complicated by polyneuropathy, hyperlipidemia, CKD who presented with family to the ED w/ dyspnea. Patient reported diuretic noncompliance.? Admitted during 05/22 overnight shift and initially treated? for presumptive sepsis due to lactate of 2.4.? Given ceftriaxone.? Of note, procalcitonin was (- ).? Pulmonary CTA was negative for PE but showed pulmonary edema, bilateral small pleural effusions and scattered GGOs.? BNP 1540.? SARS-CoV2/influenza/RSV (-).? Was given 40 mgof Lasix in the ED. Troponin was elevated above baseline 0.037. Developed unstable SVT HR in the 150's requiring cardioversion in the ED.? Patient spent many hours in the ED due to a lack of bed availability; there have also been efforts at transfer.? Code status is DNR/DNI.? Once in ICU, diagnostic impression was cardiogenic > septic shock; patient started on NIPPV and inotropic therapy.? At time of camera activation, amiodarone is infusing at 1 mg/min and patient is on dobutamine 2.5 mcg/kg/min.? 1/2 blood cultures are (+) for Staph; patient is on vancomycin. PFSH Medical History? Actinic keratoses Acute CHF Atrial fibrillation (02/21/15) Benign prostatic hyperplasia BPH (benign prostatic hyperplasia) Cardiomyopathy (02/21/15) Cataracts, bilateral (07/26/17) CHF (congestive heart failure) Chronic neck pain Coronary artery disease Diabetes Hematuria (~2017) History of CVA (cerebrovascular accident) (07/12/16) Hyperlipidemia Hypertension Hypotension Lower extremity edema Peripheral vascular disease PVD (peripheral vascular disease) Rash Renal failure Status post myocardial infarction (1994) Suspicious nevus Systolic CHF Surgical History? History of cranioplasty (10/30/16) History of surgery on arm History of vasectomy S/P TURP (10/19/13) Status post craniectomy (07/12/16) Family History? Mother? Age: 92 DementiaFather?? Cancer Social History? household members:? spouse Smoking Status:? Former smoker second hand exposure:? No alcohol intake:? former substance use type:? does not use Current Medications Current Medications Medications: Home Medications insulin regular human 100 unit/mL injection solution (Humulin R Regular U-100 Insulin) See Rx Instructions SUBCUT TIDAC #10 mL 11/05/17 [Rx Confirmed 05/22/22] Syringes: Ultra Fine Insulin Syringe w/Needle #100 ea 02/14/18 [Rx Confirmed 05/22/22] Light pressure salma hose #1 ea 07/05/18 [Rx Confirmed 05/22/22] Donut Pillow #1 ea 07/06/18 [Rx Confirmed 05/22/22] Medium to high pressure socks #1 ea 09/06/18 [Rx Confirmed 05/22/22] Lancet: Device 1 st INJ QID 02/23/19 [History Confirmed 05/22/22] finasteride 5 mg tablet See Rx Instructions .Route .COMPLEX #90 tabs 08/04/21 [Rx Confirmed 05/22/22] simvastatin 40 mg tablet See Rx Instructions .Route .COMPLEX #90 tabs 09/05/21 [Rx Confirmed 05/22/22] insulin lispro 100 unit/mL subcutaneous pen (Humalog KwikPen (U-100) Insulin) 5 unit (0.05 mL) SUBCUT DAILY #15 mL 09/08/21 [Rx Confirmed 05/22/22] cyclobenzaprine 10 mg tablet See Rx Instructions .Route .COMPLEX #90 tabs 09/30/21 [Rx Confirmed 05/22/22] tamsulosin 0.4 mg capsule See Rx Instructions .Route .COMPLEX #180 caps 12/05/21 [Rx Confirmed 05/22/22] polyethylene glycol 3350 17 gram oral powder packet See Rx Instructions .Route .COMPLEX #30 ea 12/12/21 [Rx Confirmed 05/22/22] metoprolol succinate 25 mg tablet,extended release 24 hr 25 mg PO DAILY #90 tabs 01/08/22 [Rx Confirmed 05/22/22] potassium chloride 10 mEq capsule,extended release See Rx Instructions .Route .COMPLEX #180 caps 02/02/22 [Rx Confirmed 05/22/22] pen needle, diabetic 31 gauge x 5/16 (BD Ultra-Fine Short Pen Needle) #100 ea 03/03/22 [Rx Confirmed 05/22/22] fluoxetine 20 mg capsule See Rx Instructions .Route .COMPLEX #90 caps 03/26/22 [Rx Confirmed 05/22/22] Lantus Solostar U-100 Insulin 100 unit/mL (3 mL) subcutaneous pen (insulin glargine) See Rx Instructions .Route .COMPLEX #30 mL 04/27/22 [Rx Confirmed 05/22/22] blood sugar diagnostic (OneTouch Verio test strips) See Rx Instructions .Route .COMPLEX #300 strips 04/28/22 [Rx Confirmed 05/22/22] hydrocodone 5 mg-acetaminophen 325 mg tablet 1 tab PO Q6H #120 tabs 05/07/22 [Rx Confirmed 05/22/22] Entresto 12 mg PO BID 05/22/22 [History Confirmed 05/22/22] apixaban 2.5 mg tablet (Eliquis) 2.5 mg PO BID 05/22/22 [History Confirmed 05/22/22] quetiapine 25 mg tablet 12.5 mg QPM 05/22/22 [History Confirmed 05/22/22] torsemide 20 mg tablet See Rx Instructions .Route .COMPLEX PRN (Drug) Ingestion 05/22/22 [History Confirmed 05/22/22] Visit Medications (administered) Generic Name Dose Route Start Last Admin ? Trade Name Freq? PRN Reason Stop Dose Admin Aspirin ?81 mg ?05/22/22 09:00 ?05/22/22 09:36 ? Aspirin Ec 81 Mg Tablet ?PO ? ?81 mg ? ?DAILY SHAUN ? ?Administration Atorvastatin Calcium ?20 mg ?05/22/22 21:00 ?05/22/22 20:42 ? Atorvastatin 20 Mg Tablet ?PO ? ?20 mg ? ?BEDTIME SHAUN ? ?Administration Enoxaparin Sodium ?125 mg ?05/22/22 21:00 ?05/22/22 20:42 ? Enoxaparin 150 Mg/Ml Syringe ?SUBCUT ? ?125 mg ? ?BID SHAUN ? ?Administration Finasteride ?5 mg ?05/22/22 09:00 ?05/22/22 09:36 ? Finasteride 5 Mg Tablet ?PO ? ?5 mg ? ?DAILY SHAUN ? ?Administration Fluoxetine HCl ?20 mg ?05/22/22 09:00 ?05/22/22 09:37 ? Fluoxetine 20 Mg Capsule ?PO ? ?20 mg ? ?DAILY SHAUN ? ?Administration Furosemide ?40 mg ?05/22/22 16:00 ?05/22/22 16:38 ? Furosemide 40 Mg/4 Ml Vial ?IV ? ?40 mg ? ?1600,0800 SHAUN ? ?Administration Vancomycin HCl/Dextrose ?1,500 mg in 300 mls @ 200 mls/hr ?05/22/22 20:00 ?05/22/22 20:42 ? Vancomycin ?IV ? ?200 mls/hr ? ?Q18H SHAUN ? ?Administration Amiodarone HCl/Dextrose ?360 mg in 200 mls @ 33.333 mls/hr ?05/22/22 18:00 ?05/22/22 19:32 ? Nexterone ?IV ?05/22/22 23:59 ?33.333 mls/hr ? ?NOW ONE ? ?33.33 mls/hr ? ? ?B ?Administration ? ?Protocol ? ? Dobutamine HCl/Dextrose ?250 mg in 250 mls @ 18.525 mls/hr ?05/22/22 17:45 ?05/22/22 18:39 ? Dobutamine 250 Mg In D5w ?IV ? ?2.5 mcg/kg/min ? ?TITRATE SHAUN ? ?18.525 mls/hr ? ?B ? ?Administration ? ?Protocol ?2.5 MCG/KG/MIN ? ? Insulin Glargine ?20 unit ?05/22/22 09:00 ?05/22/22 20:43 ? Insulin Glargine 100 Unit/Ml 3ml Pen ?SUBCUT ? ?Not Given ? ?BID SHAUN ? ? Insulin Human Regular ?0 unit ?05/22/22 17:15 ?05/22/22 19:54 ? Insulin Regular 100 Unit/Ml 3 Ml Vial ?SUBCUT ? ?5 unit ? ?Q6H SHAUN ? ?Administration ? ?Protocol ? ? Potassium Chloride ?10 meq ?05/22/22 08:00 ?05/22/22 17:09 ? Potassium Chloride 10 Meq Tab ?PO ? ?Not Given ? ?BIDWM SHAUN ? ? Quetiapine Fumarate ?12.5 mg ?05/22/22 17:00 ?05/22/22 17:09 ? Quetiapine 25 Mg Tablet ?PO ? ?Not Given ? ?QPM SHAUN ? ? Sennosides ?17.2 mg ?05/22/22 21:00 ?05/22/22 20:42 ? Sennosides 8.6 Mg Tablet ?PO ? ?17.2 mg ? ?BEDTIME SHAUN ? ?Administration Tamsulosin HCl ?0.4 mg ?05/22/22 09:00 ?05/22/22 20:43 ? Tamsulosin 0.4 Mg Capsule ?PO ? ?0.4 mg ? ?BID SHAUN ? ?Administration Exam Vital Signs (past 8 hours): - ? 05/22/22 13:15 05/22/22 13:20 05/22/22 13:25 Pulse Rate 82 81 81 Respiratory Rate 26 H 27 H 27 H Blood Pressure ? ? ? Pulse Oximetry 95 95 95 Oxygen Delivery Method ? ? ? Fraction of Inspired Oxygen ? 05/22/22 13:30 05/22/22 13:35 05/22/22 13:36 Pulse Rate 82 83 83 Respiratory Rate 27 H 31 H 30 H Blood Pressure ? ? ? Pulse Oximetry 95 96 95 Oxygen Delivery Method ? ? ? Fraction of Inspired Oxygen ? 05/22/22 13:36 05/22/22 13:40 05/22/22 13:40 Pulse Rate ? ? 83 Respiratory Rate ? ? 28 H Blood Pressure 97/70 100/71 ? Pulse Oximetry ? ? 96 Oxygen Delivery Method ? ? ? Fraction of Inspired Oxygen ? 05/22/22 13:45 05/22/22 13:45 05/22/22 13:50 Pulse Rate ? 84 84 Respiratory Rate ? 29 H 33 H Blood Pressure 103/79 ? ? Pulse Oximetry ? 95 95 Oxygen Delivery Method ? ? ? Fraction of Inspired Oxygen ? 05/22/22 13:51 05/22/22 13:51 05/22/22 13:55 Pulse Rate 83 ? 84 Respiratory Rate 34 H ? 32 H Blood Pressure ? 107/74 ? Pulse Oximetry 95 ? 94 Oxygen Delivery Method ? ? ? Fraction of Inspired Oxygen ? 05/22/22 13:56 05/22/22 13:56 05/22/22 14:00 Pulse Rate 83 ? 83 Respiratory Rate 31 H ? 35 H Blood Pressure ? 125/77 ? Pulse Oximetry 94 ? 94 Oxygen Delivery Method ? ? ? Fraction of Inspired Oxygen ? 05/22/22 14:05 05/22/22 14:05 05/22/22 14:10 Pulse Rate ? 83 83 Respiratory Rate ? 33 H 33 H Blood Pressure 129/67 ? ? Pulse Oximetry ? 94 94 Oxygen Delivery Method ? ? ? Fraction of Inspired Oxygen ? 05/22/22 14:11 05/22/22 14:11B 05/22/22 14:15 Pulse Rate 84 ? ? Respiratory Rate 36 H ? ? Blood Pressure ? 107/77 108/75 Pulse Oximetry 94 ? ? Oxygen Delivery Method ?B ? ? Fraction of Inspired Oxygen ? 05/22/22 14:15 05/22/22 14:20 05/22/22 14:20 Pulse Rate 83 ? 84 Respiratory Rate 40 H ? 35 H Blood Pressure ? 122/74 ? Pulse Oximetry 94 ? 95 Oxygen Delivery Method ? ? ? Fraction of Inspired Oxygen ? 05/22/22 14:25 05/22/22 14:27 05/22/22 14:27 Pulse Rate 84 84 ? Respiratory Rate 34 H 30 H ? Blood PressureB ? ? 121/72 Pulse Oximetry 96 95 ? Oxygen Delivery Method ? ? ? Fraction of Inspired Oxygen ? 05/22/22 14:30 05/22/22 14:30 05/22/22 14:35 Pulse Rate ? 83 ? Respiratory Rate ? 35 H ? Blood Pressure 119/86 ? 114/72 Pulse Oximetry ? 95 ? Oxygen Delivery Method ? ? ? Fraction of Inspired Oxygen ? 05/22/22 14:35 05/22/22 14:40 05/22/22 14:41 Pulse Rate 83 82 ? Respiratory Rate 33 H 34 H ? Blood Pressure ? ? 118/85 Pulse Oximetry 95 95 ? Oxygen Delivery Method ? ? ? Fraction of Inspired Oxygen ? 05/22/22 14:41 05/22/22 14:45 05/22/22 14:46 Pulse Rate 82 83 83 Respiratory Rate 37 H 33 H 31 H Blood Pressure ? ? ? Pulse Oximetry 95 94 95 Oxygen Delivery Method ? ? ? Fraction of Inspired Oxygen ? 05/22/22 14:46 05/22/22 14:50 05/22/22 14:50 Pulse Rate ? ? 83 Respiratory Rate ? ? 32 H Blood Pressure 108/91 H 119/90 ? Pulse Oximetry ? ? 94 Oxygen Delivery Method ? ? ? Fraction of Inspired Oxygen ? 05/22/22 14:55 05/22/22 15:00 05/22/22 15:00 Pulse Rate 100 H ? 84 Respiratory Rate 29 H ? 32 H Blood Pressure ? 130/76 ? Pulse Oximetry 95 ? 94 Oxygen Delivery Method ? ? ? Fraction of Inspired Oxygen ? 05/22/22 15:05 05/22/22 15:05 05/22/22 15:10 Pulse Rate ? 84 86 Respiratory Rate ? 33 H 33 H Blood Pressure 133/80 ? ? Pulse Oximetry ? 94 93 Oxygen Delivery Method ? ? ? Fraction of Inspired Oxygen ? 05/22/22 15:11 05/22/22 15:11 05/22/22 15:15 Pulse Rate ? 86 ? Respiratory Rate ? 34 H ? Blood Pressure 124/100 H ? 134/77 Pulse Oximetry ? 93 ? Oxygen Delivery Method ? ? ? Fraction of Inspired Oxygen ? 05/22/22 15:15 05/22/22 15:20 05/22/22 15:20 Pulse Rate 86 ? 91 H D Respiratory Rate 35 H ? 33 H Blood Pressure ? 117/75 ? Pulse Oximetry 93 ? 92 Oxygen Delivery Method ? ? ? Fraction of Inspired Oxygen ? 05/22/22 15:25 05/22/22 15:26 05/22/22 15:26 Pulse Rate 100 H ? 100 H Respiratory Rate 50 H ? 49 H Blood Pressure ? 98/56 L ? Pulse Oximetry 85 L ? 75 L Oxygen Delivery Method ? ? ? Fraction of Inspired Oxygen ? 05/22/22 15:30 05/22/22 15:30 05/22/22 15:35 Pulse Rate ? 94 H 93 H Respiratory Rate ? 40 H 44 H Blood Pressure 111/80 ? ? Pulse Oximetry ? 75 L 90 L Oxygen Delivery Method ? ? ? Fraction of Inspired Oxygen ? 05/22/22 15:36 05/22/22 15:36 05/22/22 15:40 Pulse Rate 94 H ? ? Respiratory Rate 43 H ? ? Blood Pressure ? 150/85 H 126/79 Pulse Oximetry 90 L ? ? Oxygen Delivery Method ? ? ? Fraction of Inspired Oxygen ? 05/22/22 15:40 05/22/22 15:45 05/22/22 15:45 Pulse Rate 93 H ? 93 H Respiratory Rate 43 H ? 34 H Blood Pressure ? 126/80 ? Pulse Oximetry 91 ? 80 L Oxygen Delivery Method ? ? ? Fraction of Inspired Oxygen ? 05/22/22 15:50 05/22/22 15:50 05/22/22 15:55 Pulse Rate ? 91 H ? Respiratory Rate ? 24 ? Blood Pressure 124/78 ? 131/57 L Pulse Oximetry ? 93 ? Oxygen Delivery Method ? ? ? Fraction of Inspired Oxygen ? ? 50 ? 05/22/22 15:55 05/22/22 15:55 05/22/22 16:00 Pulse Rate ? 88 ? Respiratory Rate ? 26 H ? Blood Pressure 122/75 ? 131/57 L Pulse Oximetry ? 93 ? Oxygen Delivery Method ? ? ? Fraction of Inspired Oxygen ? 05/22/22 16:00 05/22/22 16:05 05/22/22 16:06 Pulse Rate 87 94 H ? Respiratory Rate 29 H 31 H ? Blood Pressure ? ? 129/82 Pulse Oximetry 92 93 ? Oxygen Delivery Method ? ? ? Fraction of Inspired Oxygen ? 05/22/22 16:06 05/22/22 17:07 05/22/22 17:10 Pulse Rate 87 81 80 Respiratory Rate 31 H 29 H 27 H Blood Pressure ? ? 81/48 L Pulse Oximetry 93 94 93 Oxygen Delivery Method ? ? ? Fraction of Inspired Oxygen ?B 05/22/22 17:15 05/22/22 17:15 05/22/22 17:20 Pulse Rate ?B 80 80 Respiratory Rate ? 26 H 25 H Blood Pressure 81/48 L ? 81/48 L Pulse Oximetry ? 94 95 Oxygen Delivery Method ? ? ? Fraction of Inspired Oxygen ? 05/22/22 17:25 05/22/22 17:27 05/22/22 17:27 Pulse Rate 80 80 ? Respiratory Rate 28 H 26 H ? Blood Pressure ? ? 100/48 L Pulse Oximetry 95 94 ? Oxygen Delivery Method ? ? ? Fraction of Inspired Oxygen ? 05/22/22 17:30 05/22/22 17:30 05/22/22 17:35 Pulse Rate ? 80 80 Respiratory Rate ? 29 H 28 H Blood Pressure 88/53 L ? ? Pulse OximetryB ? 94 94 Oxygen Delivery Method ? ? ? Fraction of Inspired Oxygen ? 05/22/22 17:40 05/22/22 17:45 05/22/22 17:45 Pulse Rate 81 ? 84 Respiratory Rate 25 H ? 57 H Blood Pressure ? 96/54 L ? Pulse Oximetry 95 ? 92 Oxygen Delivery Method ? ? ? Fraction of Inspired Oxygen ? 05/22/22 17:50 05/22/22 17:55 05/22/22 18:00 Pulse Rate 81 82 ? Respiratory Rate 29 H 19 ? Blood Pressure ? 96/54 L 94/51 L Pulse Oximetry 96 98 ? Oxygen Delivery Method ? ? ? Fraction of Inspired Oxygen ? 05/22/22 18:00 05/22/22 18:05 05/22/22 19:07 Pulse Rate 80 81 ? Respiratory Rate 24 21 ? Blood Pressure ? 94/51 L 99/53 L Pulse Oximetry 95 96 ? Oxygen Delivery Method ? ? ? Fraction of Inspired Oxygen ? ? 50 ? 05/22/22 18:10 05/22/22 18:15 05/22/22 18:15 Pulse Rate 83 ? 83 Respiratory Rate 23 ? 21 Blood Pressure ? 90/46 L ? Pulse Oximetry 96 ? 95 Oxygen Delivery Method ? ? ? Fraction of Inspired Oxygen ? 05/22/22 18:20 05/22/22 18:25 05/22/22 18:30 Pulse Rate 82 80 79 Respiratory Rate 43 H 45 H 36 H Blood Pressure ? ? ? Pulse Oximetry 96 94 94 Oxygen Delivery Method ? ? ? Fraction of Inspired Oxygen ? 05/22/22 18:31 05/22/22 18:31 05/22/22 18:34 Pulse Rate 79 ? 86 Respiratory Rate 36 H ? 26 H Blood Pressure ? 65/37 L ? Pulse Oximetry 94 ? 97 Oxygen Delivery Method ? ? ? Fraction of Inspired Oxygen ? 05/22/22 18:34 05/22/22 18:35 05/22/22 18:38 Pulse Rate ? 82 ? D Respiratory Rate ? 26 H ? Blood Pressure 78/53 L ? 126/92 H Pulse Oximetry ?B 96 ? Oxygen Delivery Method ? ? ? Fraction of Inspired Oxygen ? 05/22/22 18:38 05/22/22 18:40 05/22/22 18:41 Pulse Rate 83 86 ? Respiratory Rate 26 H 25 H ? Blood Pressure ? ? 105/57 L Pulse Oximetry 95 96 ? Oxygen Delivery Method ? ? ? Fraction of Inspired Oxygen ? 05/22/22 18:41 05/22/22 18:45 05/22/22 18:45 Pulse Rate 82 ? 81 Respiratory Rate 24 ? 25 H Blood Pressure ? 99/53 L ? Pulse Oximetry 97 ? 96 Oxygen Delivery Method ? ? ? Fraction of Inspired Oxygen ? 05/22/22 18:50 05/22/22 18:55 05/22/22 19:00 Pulse Rate 84 82 90 Respiratory Rate 28 H 22 26 H Blood Pressure ? ? ? Pulse Oximetry 96 97 98 Oxygen Delivery Method ? ? ? Fraction of Inspired Oxygen ? 05/22/22 19:05 05/22/22 19:10 05/22/22 19:15 Pulse Rate 92 H 92 H 93 H Respiratory Rate 23 25 H 28 H Blood PressureB ? ? ? Pulse Oximetry 98 99 97 Oxygen Delivery MethodB ? ? ? Fraction of Inspired Oxygen ? 05/22/22 19:16 05/22/22 19:16 05/22/22 19:30 Pulse Rate 90 ? ? Respiratory Rate 27 H ? ? Blood Pressure ? 84/54 L 95/55 L Pulse Oximetry 97 ? ? Oxygen Delivery Method ? ? ? Fraction of Inspired Oxygen ? 05/22/22 19:30 05/22/22 19:45 05/22/22 19:45 Pulse Rate 85 ? 83 Respiratory Rate 26 H ? 26 H Blood Pressure ? 113/57 L ? Pulse Oximetry 98 ? 97 Oxygen Delivery Method ? ? ? Fraction of Inspired Oxygen ? 05/22/22 20:00 05/22/22 20:00 05/22/22 19:00 Pulse Rate ? 86 ? Respiratory Rate ? 27 H ? Blood Pressure 109/56 L ? ? Pulse Oximetry ? 97 ? Oxygen Delivery Method ? ? BiPAP Fraction of Inspired Oxygen ?B 05/22/22 20:00 Pulse Rate 86 Respiratory Rate 27 H Blood PressureB 109/56 L Pulse Oximetry 97 Oxygen Delivery Method ? Fraction of Inspired Oxygen ? Fraction of Inspired Oxygen ? 50? Oxygen Delivery Method? BiPAP ? Oxygen Flow Rate? 50? Const General: comfortable Resp Other: BIPAP 18/3 w/ FiO2 53% Objective Labs Result Diagrams: 05/22/22 04:53? 05/22/22 04:53? Labs: Laboratory Results - last 24 hr ? 05/21/22 05/21/22 05/21/22 ? 21:26 21:26 21:26 WBC ?9.1 ? ? RBC ?4.48 L ? ? Hgb ?13.0 L ? ? Hct ?38.4 L ? ? MCV ?85.8 ? ? MCH ?29.0 ? ? MCHC ?33.9 ? ? RDW ?15.6 H ? ? Plt Count ?233 ? ? Neut % (Auto) ?66.6 ? ? Lymph % (Auto) ?22.0 L ? ? [place] % (Auto) ?8.4 ? ? Eos % (Auto) ?2.4 ? ? Baso % (Auto) ?0.6 ? ? Neut # (Auto) ?6100 ? ? Lymph # (Auto) ?2000 ? ? [place] # (Auto) ?800 ? ? Eos # (Auto) ?200 ? ? Baso # (Auto) ?100 ? ? PT ? ? ? INR ? ? ? APTTB ? ? ? D-Dimer ? ?966 H ? ABG pH ? ? ? ABG pCO2 ? ? ? ABG pO2 ? ? ? ABG HCO3 ? ? ? ABG Total CO2 ? ? ? ABG O2 Saturation ? ? ? ABG Base Excess ? ? ? FiO2 ? ? ? Sodium ? ? ?137 Potassium ? ? ?4.5 Chloride ? ? ?103 Carbon Dioxide ? ? ?20 L BUN ? ? ?24 H Creatinine ? ? ?1.39 H Estimated GFR ? ? ?54 L BUN/Creatinine Ratio ? ? ?17.3 Glucose ? ? ?211 H Hemoglobin A1c ? ? ? Lactate ? ? ? Calcium ? ? ?8.6 Magnesium ? ? ?2.1 Total Bilirubin ? ? ?1.3 AST ? ? ?18 ALT ? ? ?19 Alkaline Phosphatase ? ? ?69 Total Creatine Kinase ? ? ?77 CK-MB (CK-2) ? ? ?TNP CK-MB (CK-2) Rel Index ? ? ?TNP Troponin I ? ? ?0.037 H NT-Pro-B Natriuret Pep ? ? ?1540 H Total Protein ? ? ?7.1 Albumin ? ? ?3.8 Globulin ? ? ?3.3 Albumin/Globulin Ratio ? ? ?1.2 Triglycerides ? ? ? Cholesterol ? ? ? LDL Cholesterol, Calc ? ? ? HDL Cholesterol ? ? ? Procalcitonin ? ? ? TSH ? ? ? Urine Color ? ? ? Urine Appearance ? ? ? Urine pH ? ? ? Ur Specific [place] ? ? ? Urine Protein ? ? ? Urine Glucose (UA) ? ? ? Urine Ketones ? ? ? Urine Occult Blood ? ? ? Urine Nitrate ? ? ? Urine Bilirubin ? ? ? Urine Urobilinogen ? ? ? Ur Leukocyte Esterase ? ? ? Urine RBC ? ? ? Urine WBC ? ? ? Ur Squamous Epith Cells ? ? ? Urine Bacteria ? ? ? Nasal Screen MRSA (PCR) ? ? ? A. baumannii (PCR) ? ? ? Chlamy pneumoniae PCR ? ? ? Adenovirus (PCR) ? ? ? B. pertussis DNA (PCR) ? ? ? B.parapertussis DNA PCR ? ? ? Silvia albicans (PCR) ? ? ? C. glabrata (PCR) ? ? ? C. krusei (PCR)B ? ? ? C. parapsilosis (PCR) ? ? ? C. tropicalis (PCR) ? ? ? Coronavirus OC43 (PCR) ? ? ? Coronavirus HKU1 (PCR) ? ? ? Coronavirus 229E (PCR) ? ? ? SARS-CoV-2 (PCR) ? ? ? Coronavirus NL63 (PCR) ? ? ? Enterobacteriac sp PCR ? ? ? E. cloacae complex PCR ? ? ? Enterococcus sp PCR ? ? ? E. coli (PCR) ? ? ? H. influenzae (PCR) ? ? ? Human Metapneumovir PCR ? ? ? Influenza A (RT-PCR) ? ? ? Influenza Type A (PCR) ? ? ? Influenza B (RT-PCR) ? ?B ? Influenza Type B (PCR) ? ? ? Klebsiella oxytoca PCR ? ? ? Klebsiella pneumoniae ? ? ? List. monocytogenes PCR ? ? ? M. pneumoniae (PCR) ? ? ? N. meningitidis (PCR) ? ? ? Parainfluenza 1 (PCR) ? ? ? Parainfluenza 2 (PCR) ? ? ? Parainfluenza 3 (PCR) ? ? ? Parainfluenza 4 (PCR) ? ? ? Proteus species (PCR) ? ? ? RSV (PCR) ? ? ? Entero/Rhino (PCR) ? ? ? Serratia marcescens PCR ? ? ? Staphylococcus sp PCR ? ? ? Staph aureus (PCR) ? ? ? mecA-Methicil Res Gene ? ? ? Streptococcus sp PCR ? ? ? Group A Strep (PCR) ? ? ? Strep agalactiae (PCR) ? ? ? Strep pneumoniae (PCR) ? ? ? P. aeruginosa (PCR) ? ? ? Alex/B-Vanco Res Genes ? ? ? KPC-Carbap Res Gene PCR ? 05/21/22 05/21/22 05/21/22 ? 21:26 21:26 21:26 WBCB ? ? ? RBC ? ? ? Hgb ? ? ? Hct ? ? ? MCV ? ? ? MCH ? ? ? MCHC ? ? ? RDW ? ? ? Plt Count ? ? ? Neut % (Auto) ? ? ? Lymph % (Auto) ? ? ? [place] % (Auto) ? ? ? Eos % (Auto) ? ? ? Baso % (Auto) ? ? ? Neut # (Auto) ? ? ? Lymph # (Auto) ? ? ? [place] # (Auto) ? ? ? Eos # (Auto) ? ? ? Baso # (Auto) ? ? ? PT ? ? ? INR ? ? ? APTT ? ? ? D-Dimer ? ? ? ABG pH ? ? ? ABG pCO2 ? ? ? ABG pO2 ? ? ? ABG HCO3 ? ? ? ABG Total CO2 ? ? ? ABG O2 Saturation ?B ? ? ABG Base Excess ? ? ? FiO2 ? ? ? Sodium ? ? ? Potassium ? ? ? Chloride ? ? ? Carbon Dioxide ? ? ? BUN ? ? ? Creatinine ? ? ? Estimated GFR ? ? ? BUN/Creatinine Ratio ? ? ? Glucose ? ? ? Hemoglobin A1c ? ?6.2 H ? Lactate ?2.4 H ? ? Calcium ? ? ? Magnesium ? ? ? Total Bilirubin ? ? ? AST ? ? ? ALT ? ? ? Alkaline Phosphatase ?B ? ? Total Creatine Kinase ? ? ? CK-MB (CK-2) ? ? ? CK-MB (CK-2) Rel Index ? ? ? Troponin I ? ? ? NT-Pro-B Natriuret Pep ? ? ? Total Protein ? ? ? Albumin ? ? ? Globulin ? ? ? Albumin/Globulin Ratio ? ? ? Triglycerides ? ? ? Cholesterol ? ? ? LDL Cholesterol, Calc ? ? ? HDL Cholesterol ? ? ? Procalcitonin ? ? ?0.04 TSH ? ? ? Urine Color ? ? ? Urine Appearance ? ? ? Urine pH ? ? ? D Ur Specific [place] ? ? ? Urine Protein ? ? ? Urine Glucose (UA) ? ? ? Urine Ketones ? ? ? Urine Occult Blood ? ? ? Urine Nitrate ? ? ? Urine Bilirubin ? ? ? Urine Urobilinogen ? ? ? Ur Leukocyte Esterase ? ? ? Urine RBC ? ? ? Urine WBC ? ? ? Ur Squamous Epith Cells ? ? ? Urine Bacteria ? ? ? Nasal Screen MRSA (PCR) ? ? ? D A. baumannii (PCR) ? ? ? Chlamy pneumoniae PCR ? ? ? Adenovirus (PCR) ? ? ? B. pertussis DNA (PCR) ? ? ? B.parapertussis DNA PCR ? ? ? Silvia albicans (PCR) ? ? ? C. glabrata (PCR)B ? ? ? C. krusei (PCR) ? ? ? C. parapsilosis (PCR) ? ? ? C. tropicalis (PCR) ? ? ? Coronavirus OC43 (PCR) ? ? ? Coronavirus HKU1 (PCR) ? ? ? Coronavirus 229E (PCR) ? ? ? SARS-CoV-2 (PCR) ? ? ? Coronavirus NL63 (PCR) ? ? ? Enterobacteriac sp PCR ? ? ? E. cloacae complex PCR ? ? ? Enterococcus sp PCR ? ? ? E. coli (PCR) ? ? ? H. influenzae (PCR) ? ? ? Human Metapneumovir PCR ? ? ? Influenza A (RT-PCR) ? ? ? Influenza Type A (PCR) ? ? ? Influenza B (RT-PCR) ? ? ? Influenza Type B (PCR) ? ? ? Klebsiella oxytoca PCR ? ? ? Klebsiella pneumoniae ? ? ? List. monocytogenes PCR ? ? ? M. pneumoniae (PCR) ? ? ? N. meningitidis (PCR) ? ? ? Parainfluenza 1 (PCR) ? ? ? Parainfluenza 2 (PCR) ? ? ? Parainfluenza 3 (PCR) ? ? ? Parainfluenza 4 (PCR) ? ? ? Proteus species (PCR) ? ? ? RSV (PCR) ? ? ? Entero/Rhino (PCR) ? ? ? Serratia marcescens PCR ? ? ? Staphylococcus sp PCR ? ? ? Staph aureus (PCR) ? ? ? mecA-Methicil Res Gene ? ? ? Streptococcus sp PCR ? ? ? Group A Strep (PCR) ? ? ? Strep agalactiae (PCR) ? ? ? Strep pneumoniae (PCR) ? ? ? P. aeruginosa (PCR) ?B ? ? Alex/B-Vanco Res Genes ? ? ? KPC-Carbap Res Gene PCR ? 05/21/22 05/21/22 05/22/22 ? 21:32 22:24 00:16 WBC ? ? ? RBCC ? ? ? Hgb ? ? ? Hct ? ? ? MCV ? ? ? MCH ? ? ? MCHC ? ? ? RDW ? ? ? Plt Count ? ? ? Neut % (Auto) ? ? ? Lymph % (Auto) ? ? ? [place] % (Auto) ? ? ? Eos % (Auto) ? ? ? Baso % (Auto) ? ? ? Neut # (Auto) ? ? ? Lymph # (Auto) ? ? ? [place] # (Auto) ? ? ? Eos # (Auto) ? ? ? Baso # (Auto) ? ? ? PT ? ? ? INR ? ? ? APTT ? ? ? D-Dimer ? ? ? ABG pH ? ? ? ABG pCO2 ? ? ? ABG pO2 ? ? ? ABG HCO3 ? ? ? ABG Total CO2 ? ? ? ABG O2 Saturation ? ? ? ABG Base Excess ? ? ? FiO2 ? ? ? Sodium ? ? ? Potassium ? ? ? Chloride ? ? ? Carbon Dioxide ? ? ? BUN ? ? ? Creatinine ? ? ? Estimated GFR ? ? ? BUN/Creatinine Ratio ? ? ? GlucoseC ? ? ? Hemoglobin A1c ? ? ? Lactate ? ? ?2.1 Calcium ? ? ? Magnesium ? ? ? Total Bilirubin ? ? ? AST ? ? ? ALT ? ? ? Alkaline Phosphatase ? ? ? Total Creatine Kinase ? ? ? CK-MB (CK-2) ? ? ? CK-MB (CK-2) Rel Index ? ? ? Troponin I ? ? ? NT-Pro-B Natriuret Pep ? ? ? Total Protein ? ? ? Albumin ? ? ? Globulin ? ? ? Albumin/Globulin Ratio ? ? ? Triglycerides ? ? ? Cholesterol ? ? ? LDL Cholesterol, Calc ? ? ? HDL Cholesterol ? ? ? Procalcitonin ? ? ? TSH ? ? ? Urine Color ? ? ? Urine Appearance ? ? ? Urine pH ? ? ? Ur Specific [place] ? ? ? Urine Protein ? ? ? Urine Glucose (UA) ? ? ? Urine Ketones ? ? ? Urine Occult Blood ? ? ? Urine Nitrate ? ? ? Urine Bilirubin ? ? ? Urine Urobilinogen ? ? ? Ur Leukocyte Esterase ? ? ? Urine RBC ? ? ? Urine WBC ? ? ? Ur Squamous Epith Cells ? ? ? Urine Bacteria ? ? ? Nasal Screen MRSA (PCR) ? ? ? A. baumannii (PCR) ? ?Not detected ? Chlamy pneumoniae PCR ? ? ? Adenovirus (PCR) ? ? ? B. pertussis DNA (PCR) ? ? ? B.parapertussis DNA PCR ? ? ? Silvia albicans (PCR) ? ?Not detected ? C. glabrata (PCR) ? ?Not detected ? C. krusei (PCR) ? ?Not detected ? C. parapsilosis (PCR) ? ?Not detected ? C. tropicalis (PCR) ? ?Not detected ? Coronavirus OC43 (PCR) ? ? ? Coronavirus HKU1 (PCR) ? ? ? Coronavirus 229E (PCR) ? ? ? SARS-CoV-2 (PCR) ?Negative ? ? Coronavirus NL63 (PCR) ? ? ? Enterobacteriac sp PCR ? ?Not detected ? E. cloacae complex PCR ? ?Not detected ? Enterococcus sp PCR ? ?Not detected ? E. coli (PCR) ? ?Not detected ? H. influenzae (PCR) ? ?Not detected ? Human Metapneumovir PCR ? ? ? Influenza A (RT-PCR) ?Flu a negative ? ? Influenza Type A (PCR) ? ? ? Influenza B (RT-PCR) ?Flu b negative ? ? Influenza Type B (PCR) ? ? ? Klebsiella oxytoca PCR ? ?Not detected ? Klebsiella pneumoniae ? ?Not detected ? List. monocytogenes PCR ? ?Not detected ? M. pneumoniae (PCR) ? ? ? N. meningitidis (PCR) ? ?Not detected ? Parainfluenza 1 (PCR) ? ? ? Parainfluenza 2 (PCR) ? ? ? Parainfluenza 3 (PCR) ? ? ? Parainfluenza 4 (PCR) ? ? ? Proteus species (PCR) ? ?Not detected ? RSV (PCR) ?Negative ? ? Entero/Rhino (PCR) ? ? ? Serratia marcescens PCR ? ?Not detected ? Staphylococcus sp PCR ? ?Detected H ? Staph aureus (PCR) ? ?Not detected ? mecA-Methicil Res Gene ? ?Detected H ? Streptococcus sp PCR ? ?Not detected ? Group A Strep (PCR) ? ?Not detected ? Strep agalactiae (PCR) ? ?Not detected ? Strep pneumoniae (PCR) ? ?Not detected ? P. aeruginosa (PCR) ? ?Not detected ? Alex/B-Vanco Res Genes ? ?Not Reportable ? KPC-Carbap Res Gene PCR ? ?Not Reportable ? D ? 05/22/22 05/22/22 05/22/22 ? 02:30 04:53 04:53 WBC ? ?13.2 H ? RBC ? ?4.34 L ? Hgb ? ?12.3 L ? Hct ? ?37.1 L ? MCV ? ?85.5 ? MCH ? ?28.4 ? MCHC ? ?33.2 ? RDW ? ?16.1 H ? Plt Count ? ?218 ? Neut % (Auto) ? ?88.7 H D ? Lymph % (Auto) ? ?5.9 L ? [place] % (Auto) ? ?4.8 ? Eos % (Auto) ? ?0.2 L ? Baso % (Auto)C ? ?0.4 ? Neut # (Auto) ? ?53188 H ? Lymph # (Auto) ? ?800 L ? [place] # (Auto) ? ?600 ? Eos # (Auto) ? ?0 ? Baso # (Auto) ? ?0 ? PT ? ? ?16.4 H INR ? ? ?1.4 H APTT ? ? ? D-Dimer ? ? ? ABG pH ? ? ? ABG pCO2 ? ? ? ABG pO2 ? ? ? ABG HCO3 ? ? ? ABG Total CO2 ? ? ? ABG O2 Saturation ? ? ? ABG Base Excess ? ? ? FiO2 ? ? ? Sodium ? ? ? Potassium ? ? ? Chloride ? ? ? Carbon Dioxide ? ? ? BUN ? ? ? Creatinine ? ? ? Estimated GFR ? ? ? BUN/Creatinine Ratio ? ? ? Glucose ? ? ? Hemoglobin A1c ? ? ? Lactate ? ? ? Calcium ? ? ? Magnesium ? ? ? Total Bilirubin ? ? ? AST ? ? ? ALT ? ? ? Alkaline Phosphatase ? ? ? Total Creatine Kinase ? ? ? CK-MB (CK-2) ? ? ? CK-MB (CK-2) Rel Index ? ? ? D Troponin I ? ? ? NT-Pro-B Natriuret Pep ? ? ? Total Protein ? ? ? Albumin ? ? ? Globulin ? ? ? Albumin/Globulin Ratio ? ? ? Triglycerides ? ? ? Cholesterol ? ? ? LDL Cholesterol, Calc ? ? ? HDL Cholesterol ? ? ? Procalcitonin ? ?B ? TSH ? ? ? Urine Color ?Other ? ? Urine Appearance ?Slightly cloudy ? ? Urine pH ?5.0 ? ? Ur Specific [place] ?1.010 ? ? Urine Protein ?Negative ? ? Urine Glucose (UA) ?Trace H ? ? Urine Ketones ?Negative ? ? Urine Occult Blood ?3+ H ? ? Urine Nitrate ?Negative ? ? Urine Bilirubin ?Negative ? ? Urine Urobilinogen ?0.2 ? ? Ur Leukocyte Esterase ?Negative ? ? Urine RBC ?30-100/hpf H ? ? Urine WBC ?None seen ? ? Ur Squamous Epith Cells ?0-1 /hpf ? ? D Urine Bacteria ?Occasional (0-1) ? ? Nasal Screen MRSA (PCR) ? ? ? A. baumannii (PCR) ? ? ? Chlamy pneumoniae PCR ? ? ? Adenovirus (PCR) ? ? ? B. pertussis DNA (PCR) ? ? ? B.parapertussis DNA PCR ? ? ? Silvia albicans (PCR) ? ? ? C. glabrata (PCR) ? ? ? C. krusei (PCR) ? ? ? C. parapsilosis (PCR) ? ? ? C. tropicalis (PCR) ? ? ? Coronavirus OC43 (PCR) ? ? ? Coronavirus HKU1 (PCR) ? ? ? Coronavirus 229E (PCR) ? ? ? SARS-CoV-2 (PCR) ? ? ? Coronavirus NL63 (PCR) ? ? ? Enterobacteriac sp PCR ? ? ? E. cloacae complex PCR ? ? ? Enterococcus sp PCR ? ? ? E. coli (PCR) ? ? ? H. influenzae (PCR) ? ? ? Human Metapneumovir PCR ? ? ? Influenza A (RT-PCR) ? ? ? Influenza Type A (PCR) ? ? ? Influenza B (RT-PCR) ? ? ? Influenza Type B (PCR) ? ? ? Klebsiella oxytoca PCR ? ? ? Klebsiella pneumoniae ? ? ? List. monocytogenes PCR ? ? ? M. pneumoniae (PCR) ? ? ? N. meningitidis (PCR) ? ? ? Parainfluenza 1 (PCR) ? ? ? Parainfluenza 2 (PCR) ? ? ? Parainfluenza 3 (PCR) ? ? ? Parainfluenza 4 (PCR) ? ? ? Proteus species (PCR) ? ? ? RSV (PCR) ? ? ? Entero/Rhino (PCR) ? ? ? Serratia marcescens PCR ? ? ? Staphylococcus sp PCR ? ? ? Staph aureus (PCR) ? ? ? mecA-Methicil Res Gene ? ? ? Streptococcus sp PCR ? ? ? Group A Strep (PCR) ? ? ? Strep agalactiae (PCR) ? ? ? Strep pneumoniae (PCR) ? ? ? P. aeruginosa (PCR) ? ? ? Alex/B-Vanco Res Genes ? ? ? KPC-Carbap Res Gene PCR ? 05/22/22 05/22/22 05/22/22 ? 04:53 04:53 04:53 WBC ? ? ? RBC ? ? ? Hgb ? ? ? Hct ? ? ? MCV ? ? ? MCH ? ? ? MCHC ? ? ? RDWB ? ? ? Plt Count ? ? ? Neut % (Auto) ? ? ? Lymph % (Auto) ? ? ? [place] % (Auto) ? ? ? Eos % (Auto) ? ? ? Baso % (Auto) ? ? ? Neut # (Auto) ? ? ? D Lymph # (Auto) ? ? ? [place] # (Auto) ? ? ? Eos # (Auto) ? ? ? Baso # (Auto) ? ? ? PT ? ? ? INR ? ? ? APTT ? ? ? D-Dimer ? ? ? ABG pH ? ? ? ABG pCO2 ? ? ? ABG pO2 ? ? ? ABG HCO3 ? ? ? ABG Total CO2 ? ? ? ABG O2 Saturation ? ? ? ABG Base Excess ? ? ? FiO2 ? ? ? Sodium ?137 ? ? Potassium ?4.5 ? ? Chloride ?105 ? ? Carbon Dioxide ?21 L ? ? BUN ?21 H ? ? Creatinine ?1.12 ? ? Estimated GFR ?> 60 ? ? BUN/Creatinine Ratio ?18.8 ? ? Glucose ?251 H ? ? Hemoglobin A1c ? ? ? Lactate ? ?1.6 ? Calcium ?7.7 L ? ? Magnesium ?2.0 ? ? Total Bilirubin ?1.0 ? ? AST ?21 ? ? ALT ?18 ? ? Alkaline Phosphatase ?60 ? ? Total Creatine Kinase ? ? ? CK-MB (CK-2) ? ? ? CK-MB (CK-2) Rel Index ? ? ? Troponin I ? ? ? NT-Pro-B Natriuret Pep ?1980 H ? ? Total Protein ?6.6 ? ? D Albumin ?3.5 ? ? Globulin ?3.1 ? ? Albumin/Globulin Ratio ?1.1 ? ? Triglycerides ?42 ? ? Cholesterol ?115 L ? ? LDL Cholesterol, Calc ?70 ? ? HDL Cholesterol ?37 L ?B ? Procalcitonin ? ? ? TSH ? ? ?1.80 Urine Color ? ? ? Urine Appearance ? ? ? Urine pH ? ? ? Ur Specific [place] ? ? ? Urine Protein ? ? ? Urine Glucose (UA) ? ? ? Urine Ketones ? ? ? Urine Occult Blood ? ? ? Urine Nitrate ? ?B ? Urine Bilirubin ? ? ? Urine Urobilinogen ? ? ? Ur Leukocyte Esterase ? ? ? Urine RBC ? ? ? Urine WBC ? ? ? Ur Squamous Epith Cells ? ? ? Urine Bacteria ? ? ? Nasal Screen MRSA (PCR) ? ? ? A. baumannii (PCR) ? ? ? Chlamy pneumoniae PCR ? ? ? Adenovirus (PCR) ? ? ? B. pertussis DNA (PCR) ? ? ? B.parapertussis DNA PCR ? ? ? Silvia albicans (PCR) ? ? ? C. glabrata (PCR) ? ? ? C. krusei (PCR) ? ? ? C. parapsilosis (PCR) ?B ? ? C. tropicalis (PCR) ? ? ? Coronavirus OC43 (PCR) ? ? ? Coronavirus HKU1 (PCR) ? ? ? Coronavirus 229E (PCR) ? ? ? SARS-CoV-2 (PCR) ? ? ? Coronavirus NL63 (PCR) ? ? ? Enterobacteriac sp PCR ? ? ? E. cloacae complex PCR ? ? ? Enterococcus sp PCR ? ? ? E. coli (PCR) ? ? ? H. influenzae (PCR) ? ? ? Human Metapneumovir PCR ? ? ? Influenza A (RT-PCR) ? ? ? Influenza Type A (PCR) ? ? ? Influenza B (RT-PCR) ? ? ? Influenza Type B (PCR) ? ? ? Klebsiella oxytoca PCR ? ? ? Klebsiella pneumoniae ? ? ? List. monocytogenes PCR ? ? ? M. pneumoniae (PCR) ? ? ? N. meningitidis (PCR) ? ? ? Parainfluenza 1 (PCR) ? ? ? Parainfluenza 2 (PCR)B ? ? ? Parainfluenza 3 (PCR) ? ? ? Parainfluenza 4 (PCR) ? ? ? Proteus species (PCR) ? ? ? RSV (PCR) ? ? ? Entero/Rhino (PCR) ? ? ? Serratia marcescens PCR ? ? ? Staphylococcus sp PCR ? ? ? Staph aureus (PCR) ? ?B ? mecA-Methicil Res Gene ? ? ? Streptococcus sp PCR ? ? ? Group A Strep (PCR) ? ? ? Strep agalactiae (PCR) ? ? ? Strep pneumoniae (PCR) ? ? ? P. aeruginosa (PCR) ? ? ? Alex/B-Vanco Res Genes ? ? ? KPC-Carbap Res Gene PCR ? 05/22/22 05/22/22 05/22/22 ? 04:53 09:07 12:47 WBC ? ? ? RBC ? ? ? Hgb ? ? ? Hct ? ? ? MCV ? ? ? MCH ? ? ? MCHC ? ? ? RDW ? ? ? Plt Count ? ? ? Neut % (Auto) ? ? ? Lymph % (Auto) ? ? ? Crowley % (Auto) ? ? ? Eos % (Auto) ? ? ? Baso % (Auto) ? ? ? Neut # (Auto) ? ? ? Lymph # (Auto) ? ? ? Crowley # (Auto) ? ? ? Eos # (Auto) ? ? ? Baso # (Auto) ? ? ? PT ? ? ? INR ? ? ? APTT ? ? ? D-Dimer ? ? ? ABG pH ? ? ? ABG pCO2 ? ? ? ABG pO2 ? ? ? ABG HCO3 ? ? ? ABG Total CO2 ? ? ? ABG O2 Saturation ? ? ? ABG Base Excess ? ? ? FiO2 ? ? ? Sodium ? ? ? Potassium ? ? ? Chloride ? ? ? Carbon Dioxide ? ? ? BUN ? ? ? Creatinine ? ? ? Estimated GFR ? ? ? BUN/Creatinine Ratio ? ? ? Glucose ? ? ? Hemoglobin A1c ? ? ? Lactate ? ? ? Calcium ? ? ? Magnesium ? ? ? Total Bilirubin ? ? ? AST ? ? ? ALT ? ? ? Alkaline Phosphatase ? ? ? Total Creatine Kinase ? ? ? CK-MB (CK-2) ? ? ? CK-MB (CK-2) Rel Index ? ? ? Troponin I ?1.320 H* ?3.340 H* ?3.850 H* NT-Pro-B Natriuret Pep ? ? ? Total Protein ? ? ? Albumin ? ? ? Globulin ? ? ? Albumin/Globulin Ratio ? ? ? Triglycerides ? ? ? Cholesterol ?B ? ? LDL Cholesterol, Calc ? ? ? HDL Cholesterol ? ? ? Procalcitonin ? ? ? TSHB ? ? ? Urine Color ? ? ? Urine Appearance ? ? ? Urine pH ? ? ? Ur Specific [place] ? ? ? Urine Protein ? ? ? Urine Glucose (UA) ? ? ? Urine Ketones ? ? ? Urine Occult Blood ? ? ? Urine Nitrate ? ? ? Urine Bilirubin ? ? ? Urine Urobilinogen ? ? ? Ur Leukocyte Esterase ? ? ? Urine RBC ? ? ? Urine WBC ? ? ? Ur Squamous Epith Cells ? ? ? Urine Bacteria ? ? ? Nasal Screen MRSA (PCR) ? ? ? A. baumannii (PCR) ? ? ? Chlamy pneumoniae PCR ? ? ? Adenovirus (PCR) ? ? ? B. pertussis DNA (PCR) ? ? ? B.parapertussis DNA PCR ? ? ? Silvia albicans (PCR) ? ? ? C. glabrata (PCR) ?B ? ? C. krusei (PCR) ? ? ? C. parapsilosis (PCR) ? ? ? C. tropicalis (PCR) ? ? ? Coronavirus OC43 (PCR) ? ? ? Coronavirus HKU1 (PCR) ? ? ? Coronavirus 229E (PCR) ? ? ? SARS-CoV-2 (PCR) ? ? ? Coronavirus NL63 (PCR) ? ? ? Enterobacteriac sp PCR ? ? ? E. cloacae complex PCR ? ? ? Enterococcus sp PCR ? ? ? E. coli (PCR) ? ? ? H. influenzae (PCR) ? ? ? Human Metapneumovir PCR ? ? ? Influenza A (RT-PCR) ? ? ? Influenza Type A (PCR) ? ? ? Influenza B (RT-PCR) ? ? ? Influenza Type B (PCR) ? ? ? Klebsiella oxytoca PCR ? ? ? Klebsiella pneumoniae ? ? ? List. monocytogenes PCR ? ? ? M. pneumoniae (PCR) ? ? ? N. meningitidis (PCR) ? ? ? Parainfluenza 1 (PCR) ? ? ? Parainfluenza 2 (PCR) ? ? ? Parainfluenza 3 (PCR) ? ?B ? Parainfluenza 4 (PCR) ? ? ? Proteus species (PCR) ? ? ? RSV (PCR) ? ? ? Entero/Rhino (PCR) ? ? ? Serratia marcescens PCR ? ? ? Staphylococcus sp PCR ? ? ? Staph aureus (PCR) ? ? ? mecA-Methicil Res Gene ? ? ? Streptococcus sp PCR ? ? ? Group A Strep (PCR) ? ? ? Strep agalactiae (PCR) ? ? ? Strep pneumoniae (PCR) ? ? ? P. aeruginosa (PCR) ? ? ? Alex/B-Vanco Res Genes ? ? ? KPC-Carbap Res Gene PCR ? 05/22/22 05/22/22 05/22/22 ? 15:03 15:15 17:45 WBC ? ? ? RBC ?B ? ? Hgb ? ? ? Hct ? ? ? MCV ? ? ? MCH ? ? ? MCHC ? ? ? RDW ? ? ? Plt Count ? ? ? Neut % (Auto) ? ? ? Lymph % (Auto) ? ? ? [place] % (Auto) ? ? ? Eos % (Auto) ? ? ? Baso % (Auto) ? ? ? Neut # (Auto) ? ? ? Lymph # (Auto) ? ? ? [place] # (Auto) ? ? ? Eos # (Auto) ? ? ? Baso # (Auto) ? ? ? PT ? ? ? INR ? ? ? APTT ? ? ? D-Dimer ? ? ? ABG pH ?7.35 ? ? ABG pCO2 ?31.1 L ? ? ABG pO2 ?65 L ? ? ABG HCO3 ?17 L ? ? ABG Total CO2 ?18 L ? ? ABG O2 Saturation ?92 L ? ? ABG Base Excess ?-8.0 L ? ? FiO2 ?65 ? ? Sodium ? ? ? Potassium ? ? ? Chloride ? ? ? Carbon Dioxide ? ? ? BUN ? ? ? Creatinine ? ? ? Estimated GFR ? ? ? BUN/Creatinine Ratio ? ? ? Glucose ? ? ? Hemoglobin A1c ? ? ? Lactate ? ? ? Calcium ? ? ? Magnesium ? ? ? Total Bilirubin ? ? ? AST ? ? ? ALT ? ? ? Alkaline Phosphatase ? ? ? Total Creatine Kinase ? ? ? CK-MB (CK-2) ? ? ? CK-MB (CK-2) Rel Index ? ? ? Troponin I ? ?3.330 H* ? NT-Pro-B Natriuret Pep ? ? ? Total Protein ? ? ? Albumin ? ? ? Globulin ? ? ? Albumin/Globulin Ratio ? ? ? Triglycerides ? ? ? Cholesterol ? ? ? LDL Cholesterol, Calc ? ? ? HDL Cholesterol ? ? ? Procalcitonin ? ? ? TSH ?B ? ? Urine Color ? ? ? Urine Appearance ? ? ? Urine pH ? ? ? Ur Specific [place] ? ? ? Urine Protein ? ? ? Urine Glucose (UA) ? ? ? Urine Ketones ? ? ? Urine Occult Blood ? ? ? Urine Nitrate ? ? ? Urine Bilirubin ? ? ? Urine Urobilinogen ? ? ? Ur Leukocyte Esterase ? ? ? Urine RBC ? ? ? Urine WBC ? ? ? Ur Squamous Epith Cells ? ? ? Urine Bacteria ? ? ? Nasal Screen MRSA (PCR) ? ? ?Negative for mrsa A. baumannii (PCR) ? ? ? Chlamy pneumoniae PCR ? ?C ? Adenovirus (PCR) ? ? ? B. pertussis DNA (PCR)B ? ? ? B.parapertussis DNA PCR ? ? ? Silvia albicans (PCR) ? ? ? C. glabrata (PCR) ? ? ? C. krusei (PCR) ? ? ? C. parapsilosis (PCR) ? ? ? C. tropicalis (PCR) ? ? ? Coronavirus OC43 (PCR) ? ? ? Coronavirus HKU1 (PCR) ? ? ? Coronavirus 229E (PCR) ? ? ? SARS-CoV-2 (PCR) ? ? ? Coronavirus NL63 (PCR) ? ? ? Enterobacteriac sp PCR ? ? ? E. cloacae complex PCR ? ? ? Enterococcus sp PCR ? ? ? E. coli (PCR) ? ? ? H. influenzae (PCR) ? ? ? Human Metapneumovir PCR ? ? ? Influenza A (RT-PCR) ? ? ? Influenza Type A (PCR) ? ? ? Influenza B (RT-PCR) ? ? ? Influenza Type B (PCR) ?B ? ? Klebsiella oxytoca PCR ? ? ? Klebsiella pneumoniae ? ? ? List. monocytogenes PCR ? ? ? M. pneumoniae (PCR) ? ? ? N. meningitidis (PCR) ? ? ? Parainfluenza 1 (PCR) ? ? ? Parainfluenza 2 (PCR) ? ? ? Parainfluenza 3 (PCR) ? ? ? Parainfluenza 4 (PCR) ? ? ? Proteus species (PCR) ? ? ? RSV (PCR) ? ? ? Entero/Rhino (PCR) ? ? ? Serratia marcescens PCR ? ? ? Staphylococcus sp PCR ? ? ? Staph aureus (PCR) ? ? ? mecA-Methicil Res Gene ? ? ? Streptococcus sp PCR ? ? ? Group A Strep (PCR) ? ? ? Strep agalactiae (PCR) ? ? ? Strep pneumoniae (PCR) ? ? ? P. aeruginosa (PCR) ? ? ? Alex/B-Vanco Res Genes ? ? ? KPC-Carbap Res Gene PCR ? 05/22/22 05/22/22 ? 17:45 19:15 WBC ? ? RBC ? ? HgbB ? ? Hct ? ? MCV ? ? MCH ? ? MCHC ? ? RDW ? ? Plt Count ? ? Neut % (Auto) ? ? Lymph % (Auto) ? ? [place] % (Auto) ? ? Eos % (Auto) ? ? Baso % (Auto) ? ? Neut # (Auto) ? ? Lymph # (Auto) ? ? [place] # (Auto) ? ? Eos # (Auto) ? ? Baso # (Auto) ? ? PT ? ? INR ? ? APTT ? ?37 H D-Dimer ? ? ABG pH ? ? ABG pCO2 ? ? ABG pO2 ? ? ABG HCO3 ? ? ABG Total CO2 ? ? ABG O2 Saturation ? ? ABG Base Excess ? ? FiO2 ? ? Sodium ? ? Potassium ? ? D Chloride ? ? Carbon Dioxide ? ? BUN ? ? Creatinine ? ? Estimated GFR ? ? BUN/Creatinine Ratio ? ? Glucose ? ? Hemoglobin A1c ? ? Lactate ? ? Calcium ? ? Magnesium ? ? Total Bilirubin ? ? AST ? ? ALT ? ? Alkaline Phosphatase ? ? Total Creatine Kinase ? ? CK-MB (CK-2) ? ? CK-MB (CK-2) Rel Index ? ? Troponin I ? ? NT-Pro-B Natriuret Pep ? ? Total Protein ? ? Albumin ? ? Globulin ? ? Albumin/Globulin Ratio ? ? Triglycerides ? ? Cholesterol ? ? LDL Cholesterol, Calc ? ? HDL Cholesterol ? ? Procalcitonin ? ? TSH ? ? Urine Color ? ? Urine Appearance ? ? Urine pHB ? ? Ur Specific [place] ? ? Urine Protein ? ? Urine Glucose (UA) ? ? Urine Ketones ? ? Urine Occult Blood ? ? Urine Nitrate ? ? Urine Bilirubin ? ? Urine Urobilinogen ? ? Ur Leukocyte Esterase ? ? Urine RBC ? ? Urine WBC ? ? Ur Squamous Epith Cells ? ? Urine Bacteria ?B ? Nasal Screen MRSA (PCR) ? ? A. baumannii (PCR) ? ? Chlamy pneumoniae PCR ?Not detected ? Adenovirus (PCR) ?Not detected ? B. pertussis DNA (PCR) ?Not detected ? B.parapertussis DNA PCR ?Not detected ? Silvia albicans (PCR) ? ? C. glabrata (PCR) ? ? C. krusei (PCR) ? ? C. parapsilosis (PCR)B ? ? C. tropicalis (PCR) ? ? Coronavirus OC43 (PCR) ?Not detected ? Coronavirus HKU1 (PCR) ?Not detected ? Coronavirus 229E (PCR) ?Not detected ? SARS-CoV-2 (PCR) ?Not detected ? Coronavirus NL63 (PCR) ?Not detected ? Enterobacteriac sp PCR ? ? E. cloacae complex PCR ? ? Enterococcus sp PCR ? ? E. coli (PCR) ? ? H. influenzae (PCR) ? ? Human Metapneumovir PCR ?Not detected ? Influenza A (RT-PCR) ? ? Influenza Type A (PCR) ?Not detected ? Influenza B (RT-PCR) ? ? Influenza Type B (PCR) ?Not detected ? Klebsiella oxytoca PCR ? ? Klebsiella pneumoniae ? ? List. monocytogenes PCR ? ? M. pneumoniae (PCR) ?Not detected ? N. meningitidis (PCR) ? ? Parainfluenza 1 (PCR) ?Not detected ? Parainfluenza 2 (PCR) ?Not detected ? Parainfluenza 3 (PCR) ?Not detected ? Parainfluenza 4 (PCR) ?Not detectedB ? Proteus species (PCR) ? ? RSV (PCR)B ?Detected H ? Entero/Rhino (PCR) ?Not detected ? Serratia marcescens PCR ? ? Staphylococcus sp PCR ? ? Staph aureus (PCR) ? ? mecA-Methicil Res Gene ? ? Streptococcus sp PCR ? ? Group A Strep (PCR) ? ? Strep agalactiae (PCR) ? ? Strep pneumoniae (PCR) ? ? P. aeruginosa (PCR) ? ? Alex/B-Vanco Res Genes ? ? KPC-Carbap Res Gene PCR ? ? Assessment SOB Low output CHF- EF 20% NSTEMI- demand ischemia? Afib with RVR Staph + in 1 out of 2 blood culture bottles: contaminant? 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: -Dex drip as needed for agitated delirium Cv: continueue dobutamine drip -diurese as long as BP tolerates with goal of at least 1 L net neg per 24 hour period -troponin bump could be from demand ischemia in setting of Afib with RVR- defer to cardiologuy if and when patient needs further work up for CAD -transition from Amio drip to PO Amio 100 mg BID -Keep K> 4, Mg+2 > 2 -Holding outpt Entresto, metoprolol, simvastatin, torsemide -anticoaguloation Pulm: transition from 100% NRBM to high flow nasal cannula ID: continue Vanco for now -repeat BCx, if repeat BCx neg, can consider stopping abx Heme: Lovenox for NSTEMI and Afib but may have to hold a dose if hematuria worsens FEN/Renal: Increase Lasix from 40 mg BID to TID to try and get patient net neg -monitor electrolytes and replace K, Mg, and Ca as needed Endo: monitor BG and treat as needed to maintain euglycemia Code Status: DNR/DNI Lines: PIV -Place PICC line CCT spent 60 min Time Spent With Patient Critical Care time: I spent a total of [] minutes of critical care time on this patient's care today; this time is exclusive of procedural time.
[2022-05-23] MEDS: dexmedeTOMIDine in 0.9 % NaCL 400 MCG/100 ML PLAST..BAG 6.15 MCG IV (10:33)
[2022-05-23 10:55] LABS: BUN Creatinine Ratio 24.2 (6-22); Blood Urea Nitrogen 30 mg/dL (9-20); Calcium 7.9 mg/dL (8.4-10.2); Carbon Dioxide 20 mmol/L (22-32); Chloride 102 mmol/L (98-107); Estimated Glomerular Filt Rate > 60 mL/min (>60); Glucose 222 mg/dL (80-110); HEMOLYSIS < 15 (0-50); Magnesium 2.1 mg/dL (1.6-2.3); Potassium 3.7 mmol/L (3.4-5.1); Sodium 136 mmol/L (137-145)
[2022-05-23] MEDS: AMIODARONE 200 MG TABLET 100 MG PO ×2 (11:11→15:55)
[2022-05-23] MEDS: POTASSIUM CHLORIDE 10 MEQ TAB 30 MEQ PO (11:35)
[2022-05-23] MEDS: DOBUTAMINE 250 MG IN D5W 250 MG/250 ML IV.SOLN 44.46 MG IV ×2 (12:54→16:41)
[2022-05-23] MEDS: VANCOMYCIN 1,500 MG/300 ML PIGGYBACK 200 MG IV (14:06)
--- NOTE | 2022-05-23 14:22 | CM.DANOTE ---
Initial Discharge Assessment Note: Case reviewed, met with patient and spouse, although spouse did not engage. Introduced self and role. Payer: [facility] and Medicaid PCP: Dr Lyons 71 year old obese male with multiple co-morbidities admitted yesterday with acute CHF. He is currently on a heated high flow oxygen and has been on an Amiodarone drip. Supportive spouse Esperanza in room and provided information. 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 Their son and gf live with them and is patient's LEONARDO caregiver M-F which works out very well she states. Plan: When medically stable, to return home under care of spouse and son who will provide transport. [place] Discharge Planning/Care Management CM Discharge Assessment Start: 05/23/22 14:19 Freq: Status: Active Protocol: Document 05/23/22 14:20 (Rec: 05/23/22 14:22 [id number]) Discharge Planning Assessment Assigned Rug [employer] [place] Emily Dickey RN/DCP Advance Directives? No Advance Directives on File No History Provided By Significant Other,Medical Record Has Patient been admitted in last 30 No days? Prior Living Arrangements House Household Members spouse Type of transporation used prior to Relies on Others admit Independent with ADL's No Is patient alert and oriented? No Needs Assistance With Meal Prep,Managing Medications ,Home Chores / Shopping Caregiver for Another No Comment Per spouse patient does not currently use DME but does have it available if needed. Barriers to Discharge No Discharge Plan Home Transportation Arrangement Spouse to provide transport. Referrals Initiated None needed Review Status In Process Next Review Type Continued Stay Review
[2022-05-23] MEDS: ACETAMINOPHEN 325 MG TABLET 650 MG PO (16:13)
--- NOTE | 2022-05-23 17:05 | DI.RAD.S_ITS ---
PROCEDURE: XR CHEST 1V INDICATIONS: Picc placement TECHNIQUE: One view of the chest was acquired. COMPARISON: [facility], CT, CT ANGIO CHEST PE PROTOCOL, 05/21/2022, 21:56. [facility], CR, XR CHEST 1V, 05/21/2022, 21:10. FINDINGS: Surgical changes and devices: A right-sided PICC line is seen, with the tip overlying the inferior aspect of the superior vena cava, near the cavoatrial junction. Lungs and pleura: On this semiupright study, no large pneumothorax can be seen. Bilateral pleural effusions are seen, left larger than right. Mild generalized interstitial infiltrates are seen. Mediastinum: Mediastinal contours appear normal. Heart size is mildly enlarged. Bones and chest wall: No suspicious bony lesions. Age-appropriate bony degenerative changes are seen. Overlying soft tissues appear unremarkable. IMPRESSION: The tip of the right-sided PICC line can be seen overlying the inferior aspect of the superior vena cava. Cardiomegaly with generalized interstitial infiltrates and bilateral pleural effusions. CHF is suspected. Dictated by: Russell Casanova M.D. on 05/23/2022 at 17:15 Approved by: Russell Casanova M.D. on 05/23/2022 at 17:17
[2022-05-23 18:21] LABS: HEMOLYSIS 49 (0-50); Potassium 4.4 mmol/L (3.4-5.1)
--- NOTE | 2022-05-23 19:00 | PC.NURSE ---
Resumed care of patient at 1300. He remains confused, is oriented to self and who is staying in room. Remains on Precedex gtt, currently at 0.3mcg/kg/hr. HHFNC still at 50%/50L, SpO2 >92%, RR 20s. Dobutamine gtt at 6mcg/kg/min to keep MAP >70/SBP >90, attempts to decrease not effective. Picc line placed RUE. Vancomycin, IV Lasix given, urine is still dark red, leaking around Ortiz catheter, also irrigating a few small clots. Bladder scan done, approx 60ml. Has been incont soft quispe stool.
[2022-05-23] MEDS: dexmedeTOMIDine in 0.9 % NaCL 400 MCG/100 ML PLAST..BAG 9.225 MCG IV (19:57)
--- NOTE | 2022-05-23 20:09 | PM.ICURNDS ---
- Date Patient Seen: 05/23/22 Time Patient Seen: 20:11 :: This patient was seen via real time interactive two-way audiovisual telecommunication. Note: Patient remains on dobutamine 6 mcg. No venous blood gas sent. Reordered VBG stat. On precedex 0.3 mcg. Patient does not tolerate BiPAP and prefer to use HFNC. Also report having hematuria which is quite bloody. Will hold lovenox dose tonight and reassess in the morning. Cont dobutamine, lasix, and precedex gtt. RT to titrate FiO2 to maintain goal SpO2 > 90%. D/w RN and patient at bedside.
[2022-05-23] MEDS: ATORVASTATIN 20 MG TABLET 40 MG PO (20:30)
[2022-05-23] MEDS: SENNOSIDES 8.6 MG TABLET 17.2 MG PO (20:31)
[2022-05-23] MEDS: HYDROCODONE/ACET 5/325 TABLET 1 TAB PO (20:31)
--- NOTE | 2022-05-23 21:23 | PC.NURSE ---
Addendum entered by Andree Nunn R.N. 05/24/22 06:02: CBI draining well, urine slowly becoming interim controller in color. Addendum entered by Andree Nunn R.N. 05/24/22 01:14: at 2200 patient with foote catheter completely occluded, unable to flush or have irrigate drain out. Foote changed to 18fr coude with 1350 of urine removed immediately. continually monitoring for clotting. At about 0030, unable to flush coude catheter, Ric RUIZ notified and new orders noted. 20fr 3-way foote placed without difficulty and continuous bladder irrigation started. Urine remaining deep red, but slowly getting interim controller in color. Original Note: Patient awakening to name, but sleepy at present time. VBG done and called to Dr. Gomez, and Dobutamine decreased to 5mcg/kg. blood pressure stable at present time. Lovenox held due to hematuria. at bedside.
[2022-05-23] MEDS: DOBUTAMINE 250 MG IN D5W 250 MG/250 ML IV.SOLN 37.05 MG IV (22:00)
[2022-05-23 22:33] LABS: HCO3 VBG 20 mmol/L (23-28); Oxygen Saturation VBG 74 % (70-75); PCO2 VBG 29.5 mmHg (45-50); PO2 VBG 38 mmHg (35-45); Total CO2 VBG 20 mmol/L (24-29); pH VBG 7.43 (7.33-7.43)
[2022-05-24] VITALS (28 sets, daily range): BP systolic 87–109; BP diastolic 50–58; PULSE 78–89; RESP 13–30; TEMP 36.2–36.3; O2SAT 93–99
[2022-05-24] MEDS: INSULIN REGULAR 100 UNIT/ML 3 ML VIAL SUBCUT ×2 (00:24→06:07)
[2022-05-24] MEDS: DOBUTAMINE 250 MG IN D5W 250 MG/250 ML IV.SOLN 37.05 MG IV (04:15)
[2022-05-24] MEDS: dexmedeTOMIDine in 0.9 % NaCL 400 MCG/100 ML PLAST..BAG 9.225 MCG IV (05:55)
[2022-05-24 07:53] LABS: Add Manual Diff / Slide Review NO; Basophils Absolute Auto 0 /uL (0-100); Basophils Percent Auto 0.4 % (0-2); Eosinophils Absolute Auto 0 /uL (0-450); Eosinophils Percent Auto 0.3 % (2-4); Hematocrit 26.2 % (41-53); Hemoglobin 8.8 g/dL (13.5-17.5); Lymphocytes Absolute Auto 1400 /uL (1100-4500); Lymphocytes Percent Auto 11.7 % (25-40); Mean Corpuscular HGB Conc 33.7 % (30-36); Mean Corpuscular Hemoglobin 28.5 PG (26-34); Mean Corpuscular Volume 84.7 fL (80-100); Monocytes Absolute Auto 1100 /uL (0-900); Monocytes Percent Auto 8.8 % (3-14); Neutrophils Absolute Auto 9700 /uL (1500-7000); Neutrophils Percent Auto 78.8 % (50-75); Platelet Count 173 X10^3/uL (150-400); Red Blood Cell Count 3.09 X10^6/uL (4.5-5.9); Red Cell Distribution Width 15.2 % (11.6-14.8); White Blood Cell Count 12.3 X10^3/uL (4.5-11.0)
[2022-05-24] MEDS: VANCOMYCIN TROUGH 1 REQUEST MISC (07:57)
[2022-05-24 08:07] LABS: Alanine Aminotransferase 15 IU/L (<50); Albumin 2.7 g/dL (3.5-5.0); Albumin Globulin Ratio 1.2 (1.0-2.8); Alkaline Phosphatase 37 U/L (38-126); Aspartate Aminotransferase 13 IU/L (17-59); BUN Creatinine Ratio 29.3 (6-22); Bilirubin Total 1.3 mg/dL (0.2-1.3); Blood Urea Nitrogen 34 mg/dL (9-20); Carbon Dioxide 21 mmol/L (22-32); Chloride 101 mmol/L (98-107); Estimated Glomerular Filt Rate > 60 mL/min (>60); Globulin 2.3 g/dL (1.7-4.1); Glucose 344 mg/dL (80-110); HEMOLYSIS < 15 (0-50); Magnesium 2.2 mg/dL (1.6-2.3); Potassium 3.8 mmol/L (3.4-5.1); Sodium 131 mmol/L (137-145)
[2022-05-24 08:08] LABS: HCO3 VBG 23 mmol/L (23-28); Oxygen Saturation VBG 31 % (70-75); PCO2 VBG 39.6 mmHg (45-50); PO2 VBG 20 mmHg (35-45); Total CO2 VBG 24 mmol/L (24-29)
[2022-05-24 08:14] LABS: pH VBG 7.37 (7.33-7.43)
--- NOTE | 2022-05-24 09:00 | PM.PN.1 ---
Exam Vital Signs (past 8 hours): - 05/24/22 02:00 05/24/22 02:41 05/24/22 03:00 Temperature Pulse Rate 78 80 85 Respiratory Rate 15 26 H 15 Blood Pressure 91/50 L 91/50 L 93/51 L Pulse Oximetry 98 97 99 Oxygen Delivery Method Oxygen Flow Rate 50 50 Fraction of Inspired Oxygen 0.51 0.51 05/24/22 04:00 05/24/22 05:00 05/24/22 05:03 Temperature 97.3 F L Pulse Rate 80 81 80 Respiratory Rate 14 13 24 Blood Pressure 87/52 L 91/55 L 91/55 L Pulse Oximetry 99 98 98 Oxygen Delivery Method Oxygen Flow Rate 50 50 Fraction of Inspired Oxygen 0.51 0.51 05/24/22 04:00 05/24/22 05:00 05/24/22 06:00 Temperature Pulse Rate 82 Respiratory Rate 13 Blood Pressure 89/55 L Pulse Oximetry 93 99 Oxygen Delivery Method High Flow Nasal Cannula Heated High Flow Oxygen Flow Rate 50 50 Fraction of Inspired Oxygen 0.51 05/24/22 07:00 05/24/22 07:00 05/24/22 07:15 Temperature Pulse Rate 81 82 Respiratory Rate 13 13 Blood Pressure 101/57 L Pulse Oximetry 99 99 Oxygen Delivery Method Oxygen Flow Rate Fraction of Inspired Oxygen 05/24/22 07:30 05/24/22 08:44 Temperature Pulse Rate 82 84 Respiratory Rate 13 16 Blood Pressure 102/52 L Pulse Oximetry 99 96 Oxygen Delivery Method Oxygen Flow Rate Fraction of Inspired Oxygen Fraction of Inspired Oxygen 0.51 Oxygen Delivery Method Heated High Flow Oxygen Flow Rate 50 Narrative Exam Narrative: General: Patient is a large framed morbidly obese male, on nonrebreather, cognitively impaired at baseline, in no acute distress at this time. HEENT: Normocephalic, atraumatic, extraocular muscles intact, mucous membranes are dry. Neck is supple and symmetric, trachea is midline, no adenopathy, no thyroid enlargement, nontender, no masses palpated. Negative for JVD Chest: Respiratory function with minimal exertion results in significant tachypnea and work of breathing. Lungs: Auscultation of all lung rothman are decreased equal, poor air exchange without obvious adventitious sounds, wheezes, rhonchi, or rales. Cardio: irregular rate and rhythm without murmur, rubs, or gallops, no carotid bruit, no cardiac pulsations present. Abdomen: Soft nontender, negative for organomegaly, or masses. Bowel sounds are present in all 4 quadrants without guarding or rebound, no CVA tenderness. : Boris blood from urethral meatus around foote, with dark bloody urine in foote bag Musculoskeletal: Muscle tone appears equal within normal limits for patient, no deformity, crepitus, effusions, cyanosis, clubbing. Positive bilateral +4 pitting edema to lower extremity. Full range of motion intact radial and pedal pulses are normal. Skin: Warm dry and intact without rashes, ulcerations or petechiae.positive venous stasis encircling bilateral calves. Neuro: Responds to verbal stimuli, moves all extremities, sensation to touch intact. Psych: Patient has a well-kept appearance, impaired cognition/mental status, at baseline per bedside RN who spoke with the Family in ED which is oriented x1. Objective Labs Result Diagrams: 05/24/22 07:46 05/24/22 07:46 Labs: Laboratory Results - last 24 hr 05/23/22 05/23/22 05/23/22 10:30 18:00 20:55 WBC RBC Hgb Hct MCV MCH MCHC RDW Plt Count Neut % (Auto) Lymph % (Auto) [place] % (Auto) Eos % (Auto) Baso % (Auto) Neut # (Auto) Lymph # (Auto) [place] # (Auto) Eos # (Auto) Baso # (Auto) VBG pH 7.43 VBG pCO2 29.5 L VBG pO2 38 VBG HCO3 20 L VBG Total CO2 20 L VBG O2 Saturation 74 VBG Base Excess -5.0 L Sodium 136 L Potassium 3.7 4.4 Chloride 102 Carbon Dioxide 20 L BUN 30 H Creatinine 1.24 Estimated GFR > 60 BUN/Creatinine Ratio 24.2 H Glucose 222 H Calcium 7.9 L Magnesium 2.1 Total Bilirubin AST ALT Alkaline Phosphatase Total Protein Albumin Globulin Albumin/Globulin Ratio 05/24/22 05/24/22 05/24/22 07:37 07:46 07:46 WBC 12.3 H RBC 3.09 L Hgb 8.8 L Hct 26.2 L MCV 84.7 MCH 28.5 MCHC 33.7 RDW 15.2 H Plt Count 173 Neut % (Auto) 78.8 H Lymph % (Auto) 11.7 L [place] % (Auto) 8.8 Eos % (Auto) 0.3 L Baso % (Auto) 0.4 Neut # (Auto) 9700 H Lymph # (Auto) 1400 [place] # (Auto) 1100 H Eos # (Auto) 0 Baso # (Auto) 0 VBG pH 7.37 VBG pCO2 39.6 L VBG pO2 20 L VBG HCO3 23 VBG Total CO2 24 VBG O2 Saturation 31 L VBG Base Excess -3.0 L Sodium 131 L Potassium 3.8 Chloride 101 Carbon Dioxide 21 L BUN 34 H Creatinine 1.16 Estimated GFR > 60 BUN/Creatinine Ratio 29.3 H Glucose 344 H D Calcium 7.0 L Magnesium 2.2 Total Bilirubin 1.3 AST 13 L ALT 15 Alkaline Phosphatase 37 L Total Protein 5.0 L Albumin 2.7 L Globulin 2.3 Albumin/Globulin Ratio 1.2 PFSH Medical History Actinic keratoses Acute CHF Atrial fibrillation (02/21/15) Benign prostatic hyperplasia BPH (benign prostatic hyperplasia) Cardiomyopathy (02/21/15) Cataracts, bilateral (07/26/17) CHF (congestive heart failure) Chronic neck pain Coronary artery disease Diabetes Hematuria (~2016) History of CVA (cerebrovascular accident) (07/12/16) Hyperlipidemia Hypertension Hypotension Lower extremity edema Peripheral vascular disease PVD (peripheral vascular disease) Rash Renal failure Status post myocardial infarction (1994) Suspicious nevus Systolic CHF Surgical History History of cranioplasty (10/30/16) History of surgery on arm History of vasectomy S/P TURP (10/19/13) Status post craniectomy (07/12/16) Family History Mother Age: 92 Dementia Father Cancer Social History household members: spouse Smoking Status: Former smoker second hand exposure: No alcohol intake: former substance use type: does not use Assessment & Plan Assessment & Plan narrative: 1. Cardiogenic shock, acute present on admission -BP dropped to 70/40 despite 3L saline boluses in ED, suspect due to worsened EF exacerbated by RSV -Cardiology consulted who recommended dobutamine with amio drip, transfer to higher level of care for cardiology consultation -continue dobutamine and amio drip -daily EKG's -BP now stable 2. Acute respiratory failure, secondary to RSV infection and systolic CHF exacerbation, acute present on admission -HFrEF, appears to worsened from 30 to 20% based on review of echo May 2021 -The patient's noted that he takes torsemide 20 mg tabs 3-4 tablets (80-120mg) per day as needed (HOLDING) -Echo 05/22: EF 20-25%. LVEF has decreased since prior study. There is mild to moderate global hypokinesis of the left ventricle. But, the inferior, septum and part of apex are severely hypokinetic to akinetic. -BNP 1540 -Resp PCR positive for RSV, procal negative so will stop abx -Patient is not on any home O2, now requiring 4 L oxygen for an O2 saturation of 90%-that has now since change the patient is on high-flow 50 L at 65% RR 22 O2 saturation 96% -continue lasix 40mg IV BID -Foote Placed for accurate I&O and diuresis -Strict I&O, daily weights, fluid restriction 2000 cc, low-sodium diet -On admit Mag 2.1, potassium 4.5- Monitor closely 3. Atrial fibrillation with RVR component resolved, acute on chronic, present on admission -SVT HR in the 150's, RR 40-50's, requiring cardioversion x2. Cardioversion successful in converting to sinus rhythm. -continue metoprolol, Eliquis in AM Monitor for hypotension -continue telemetry -Cardiology recommended in 2020 internally planted defibrillator -amio drip as above to prevent converting to Afib RVR with dobutamine use -daily EKG's to monitor QTc 4. NSTEMI, acute, history myocardial infarction, present on admission -initial troponin 0.037, krunal to 3.850 then downtrended to 3.330, patient denied CP -continue lovenox 1mg/kg BID for at least 48 hours -transfer as above 5. Chronic kidney disease stage G3a, stable, present on admission -on admit bicarb 20, BUN 24, creatinine 1.39, glucose 211, GFR 54. -per review of 02/18/2022 primary care records patient's baseline BUN 27, creatinine 1.28, GFR 59, A1c 7.0 -Closely monitor renal function -avoid nephrotoxic medications 5. Essential hypertension, with a history of cardiomyopathy, CAD, PVD, and venous insufficiency, chronic, present on admission - B/P's 74/49, 89/54, 92/60 -The patient's noted that he takes torsemide 20 mg tabs 3-4 tablets (80-120mg) per day as needed-this very well may be contributing to his hypotension. Patient has seen his primary with frequent complaints of hypotension. -continue metoprolol, Entresto (angio II receptor andry)- monitor & Consider holding for hypotension -orthostatics q.4 hours while awake to start tomorrow morning. 6. Insulin-dependent type 2 diabetes, with polyneuropathy, hyperglycemia, acute on chronic, with hyperlipidemia, chronic, present on admission -glucose 211 on admit, last A1c January 2022 7.0, ordered A1c on admit 6.2-patient over the age of 70 should have a permissive A1c of up to 7.5 to avoid hypo glycemia -Continue statin -Carb controlled diet -continue lantus 20mg BID and SSI 7. 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 -Patient's is his caregiver -Continue fluoxetine, hold seroquel due to amio use 8. 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 Constipation, chronic, likely secondary to CVA, present on admission -recommend continuing with senna 10. Morbid obesity, acute on chronic, present on admission -as evidence by BMI of 38.4 -dietary consult ordered regarding nutritional education and information for dietary, lifestyle, exercise, and weight changes. -the patient is at much higher risk for medical and surgical complications due to obesity as it relates to chronic illnesses:, and his acute illnesses. The patient's obesity increases the difficulty and complexity of medical and/or surgical interventions, management and increases the chances of poor outcome such as morbidity and mortality as well as impaired wound healing. Code status:Full Critical Care Admit: >30min time spent. Surrogate decision maker: , Esperanza GONZALEZ PCR:Negative DVT/VTE prophylaxis: Lovenox Disposition: Pending transfer to higher level of care. Time Spent With Patient Critical Care time: I spent a total of [] minutes of critical care time on this patient's care today; this time is exclusive of procedural time. Quality VTE Deep Vein Thrombosis/Pulmonary Embolism Present on Admission: No
[2022-05-24] MEDS: VANCOMYCIN 1,500 MG/300 ML PIGGYBACK 200 MG IV (09:02)
[2022-05-24] MEDS: FLUoxetine 20 MG CAPSULE PO (09:02)
[2022-05-24] MEDS: FUROSEMIDE 40 MG/4 ML VIAL IV (09:02)
[2022-05-24] MEDS: TAMSULOSIN 0.4 MG CAPSULE PO (09:02)
[2022-05-24] MEDS: FINASTERIDE 5 MG TABLET PO (09:03)
[2022-05-24] MEDS: ASPIRIN EC 81 MG TABLET PO (09:03)
[2022-05-24] MEDS: AMIODARONE 200 MG TABLET 100 MG PO (09:03)
[2022-05-24] MEDS: INSULIN GLARGINE 100 UNIT/ML 3ML PEN 20 UNIT SUBCUT (09:05)
--- NOTE | 2022-05-24 09:12 | PM.PN.EICU ---
Subjective Subjective IF CAMERA ACTIVATED, patient seen via real-time interactive audiovisual communication: Camera activated Consent obtained for tele-whipped topping mixer care: Yes Patient Location: ICU Provider location (State): [place] Other participants/roles: hospitalist, RN Interval history: Patient summaryt: 71 yo man with PMH of CAD, HFrEF (LV EF of 20%), morbid obesity, HTN, cardiomyopathy, PVD, Afib in eliquis, h/o of hemorrhagic CVA s/p craniotomy with residual physical and cognitive deficits (dependent on for ADL support), BPH, T2DM, HL, and CKD admitted 05/22 for SOB.? Pulm CTA neg for PE but did show pulmonary edema, bilat small pleural effusions and scattered GGos. Pt. developed unstbale SVT with HR in the 150's requiring cardioversion in ED. Pt. started on Amio drip. In ICU patient started on Dobutamine drip 2.5 mcg/kg/min and lasix 40 mg IV BID.? Blood cultures 06/29 is + for Staph so patient started on Vanco. 05/23/22: Afib rate controlled so patient switched from Amio drip to PO Amio. Dobutamined increased from 2.5 to 5 and Lasix increased from 40 mg BID to TID. Pt. switched from BIPAP to HFNC 50L 50%. Pt. developed hematuria from Foote trauama (pt. had pulled on his Foote). Pt. started on Dex drip for anxiety and agitated delirium. Lovenox dose held. PICC line placed. Recent Events: -patient diuresed out 1.9 L net neg in last 24 hours - Cr continues to improve - Hgb went from 12 yesterday to 8.8 today - foote had to be changed out twice last night because it clotted - pt. now on continuous bladder irrigation - pt. currently HFNC 50 L 50% Current Medications Current Medications Medications: Home Medications insulin regular human 100 unit/mL injection solution (Humulin R Regular U-100 Insulin) See Rx Instructions SUBCUT TIDAC #10 mL 11/05/17 [Rx Confirmed 05/22/22] Syringes: Ultra Fine Insulin Syringe w/Needle #100 ea 02/14/18 [Rx Confirmed 05/22/22] Light pressure salma hose #1 ea 07/05/18 [Rx Confirmed 05/22/22] Donut Pillow #1 ea 07/06/18 [Rx Confirmed 05/22/22] Medium to high pressure socks #1 ea 09/06/18 [Rx Confirmed 05/22/22] Lancet: Device 1 st INJ QID 02/23/19 [History Confirmed 05/22/22] finasteride 5 mg tablet See Rx Instructions .Route .COMPLEX #90 tabs 08/04/21 [Rx Confirmed 05/22/22] simvastatin 40 mg tablet See Rx Instructions .Route .COMPLEX #90 tabs 09/05/21 [Rx Confirmed 05/22/22] insulin lispro 100 unit/mL subcutaneous pen (Humalog KwikPen (U-100) Insulin) 5 unit (0.05 mL) SUBCUT DAILY #15 mL 09/08/21 [Rx Confirmed 05/22/22] cyclobenzaprine 10 mg tablet See Rx Instructions .Route .COMPLEX #90 tabs 09/30/21 [Rx Confirmed 05/22/22] tamsulosin 0.4 mg capsule See Rx Instructions .Route .COMPLEX #180 caps 12/05/21 [Rx Confirmed 05/22/22] polyethylene glycol 3350 17 gram oral powder packet See Rx Instructions .Route .COMPLEX #30 ea 12/12/21 [Rx Confirmed 05/22/22] metoprolol succinate 25 mg tablet,extended release 24 hr 25 mg PO DAILY #90 tabs 01/08/22 [Rx Confirmed 05/22/22] potassium chloride 10 mEq capsule,extended release See Rx Instructions .Route .COMPLEX #180 caps 02/02/22 [Rx Confirmed 05/22/22] pen needle, diabetic 31 gauge x 5/16 (BD Ultra-Fine Short Pen Needle) #100 ea 03/03/22 [Rx Confirmed 05/22/22] fluoxetine 20 mg capsule See Rx Instructions .Route .COMPLEX #90 caps 03/26/22 [Rx Confirmed 05/22/22] Lantus Solostar U-100 Insulin 100 unit/mL (3 mL) subcutaneous pen (insulin glargine) See Rx Instructions .Route .COMPLEX #30 mL 04/27/22 [Rx Confirmed 05/22/22] blood sugar diagnostic (OneTouch Verio test strips) See Rx Instructions .Route .COMPLEX #300 strips 04/28/22 [Rx Confirmed 05/22/22] hydrocodone 5 mg-acetaminophen 325 mg tablet 1 tab PO Q6H #120 tabs 05/07/22 [Rx Confirmed 05/22/22] Entresto 12 mg PO BID 05/22/22 [History Confirmed 05/22/22] apixaban 2.5 mg tablet (Eliquis) 2.5 mg PO BID 05/22/22 [History Confirmed 05/22/22] quetiapine 25 mg tablet 12.5 mg QPM 05/22/22 [History Confirmed 05/22/22] torsemide 20 mg tablet See Rx Instructions .Route .COMPLEX PRN (Drug) Ingestion 05/22/22 [History Confirmed 05/22/22] Visit Medications (administered) Generic Name Dose Route Start Last Admin Trade Name Gabinoq PRN Reason Stop Dose Admin Acetaminophen 650 mg 05/22/22 00:39 05/23/22 16:13 Acetaminophen 325 Mg Tablet PO 650 mg Q6H PRN Administration Fever/Mild Pain (1-3) Hydrocodone Bitart/Acetaminophen 1 tab 05/23/22 16:29 05/23/22 20:31 Hydrocodone/Acet 5/325 Tablet PO 1 tab Q6HR PRN Administration Pain, Moderate (4-6) Amiodarone HCl 100 mg 05/23/22 11:00 05/24/22 09:03 Amiodarone 200 Mg Tablet PO 100 mg BIDWM SHAUN Administration Aspirin 81 mg 05/22/22 09:00 05/24/22 09:03 Aspirin Ec 81 Mg Tablet PO 81 mg DAILY SHAUN Administration Atorvastatin Calcium 40 mg 05/23/22 21:00 05/23/22 20:30 Atorvastatin 20 Mg Tablet PO 40 mg BEDTIME SHAUN Administration Enoxaparin Sodium 125 mg 05/22/22 21:00 05/24/22 09:04 Enoxaparin 150 Mg/Ml Syringe SUBCUT Not Given BID SHAUN Finasteride 5 mg 05/22/22 09:00 05/24/22 09:03 Finasteride 5 Mg Tablet PO 5 mg DAILY SHAUN Administration Fluoxetine HCl 20 mg 05/22/22 09:00 05/24/22 09:02 Fluoxetine 20 Mg Capsule PO 20 mg DAILY SHAUN Administration Furosemide 40 mg 05/23/22 11:30 05/24/22 09:02 Furosemide 40 Mg/4 Ml Vial IV 40 mg TID SHAUN Administration Vancomycin HCl/Dextrose 1,500 mg in 300 mls @ 200 mls/hr 05/22/22 20:00 05/24/22 09:02 Vancomycin IV 200 mls/hr Q18H SHAUN Administration Dobutamine HCl/Dextrose 250 mg in 250 mls @ 18.525 mls/hr 05/22/22 17:45 05/24/22 04:15 Dobutamine 250 Mg In D5w IV 5 mcg/kg/min TITRATE SHAUN 37.05 mls/hr Administration Protocol 2.5 MCG/KG/MIN dexmedeTOMIDine in 0.9 % NaCL 400 mcg in 100 mls @ 6.15 mls/hr 05/23/22 10:00 05/24/22 05:55 Precedex IV 0.3 mcg/kg/hr TITRATE SHAUN 9.225 mls/hr Administration Protocol 0.2 MCG/KG/HR Insulin Glargine 20 unit 05/22/22 09:00 05/24/22 09:05 Insulin Glargine 100 Unit/Ml 3ml Pen SUBCUT 20 unit BID SHAUN Administration Insulin Human Regular 0 unit 05/22/22 17:15 05/24/22 06:07 Insulin Regular 100 Unit/Ml 3 Ml Vial SUBCUT 5 unit Q6H SHAUN Administration Protocol Sennosides 17.2 mg 05/22/22 21:00 05/23/22 20:31 Sennosides 8.6 Mg Tablet PO 17.2 mg BEDTIME SHAUN Administration Tamsulosin HCl 0.4 mg 05/22/22 09:00 05/24/22 09:02 Tamsulosin 0.4 Mg Capsule PO 0.4 mg BID SHAUN Administration Objective Ventilator Parameters: Ventilator Settings FiO2 65 Labs Result Diagrams: 05/24/22 07:46 05/24/22 07:46 Labs: Laboratory Results - last 24 hr 05/23/22 05/23/22 05/23/22 10:30 18:00 20:55 WBC RBC Hgb Hct MCV MCH MCHC RDW Plt Count Neut % (Auto) Lymph % (Auto) [place] % (Auto) Eos % (Auto) Baso % (Auto) Neut # (Auto) Lymph # (Auto) [place] # (Auto) Eos # (Auto) Baso # (Auto) VBG pH 7.43 VBG pCO2 29.5 L VBG pO2 38 VBG HCO3 20 L VBG Total CO2 20 L VBG O2 Saturation 74 VBG Base Excess -5.0 L Sodium 136 L Potassium 3.7 4.4 Chloride 102 Carbon Dioxide 20 L BUN 30 H Creatinine 1.24 Estimated GFR > 60 BUN/Creatinine Ratio 24.2 H Glucose 222 H Calcium 7.9 L Magnesium 2.1 Total Bilirubin AST ALT Alkaline Phosphatase Total Protein Albumin Globulin Albumin/Globulin Ratio 05/24/22 05/24/22 05/24/22 07:37 07:46 07:46 WBC 12.3 H RBC 3.09 L Hgb 8.8 L Hct 26.2 L MCV 84.7 MCH 28.5 MCHC 33.7 RDW 15.2 H Plt Count 173 Neut % (Auto) 78.8 H Lymph % (Auto) 11.7 L [place] % (Auto) 8.8 Eos % (Auto) 0.3 L Baso % (Auto) 0.4 Neut # (Auto) 9700 H Lymph # (Auto) 1400 [place] # (Auto) 1100 H Eos # (Auto) 0 Baso # (Auto) 0 VBG pH 7.37 VBG pCO2 39.6 L VBG pO2 20 L VBG HCO3 23 VBG Total CO2 24 VBG O2 Saturation 31 L VBG Base Excess -3.0 L Sodium 131 L Potassium 3.8 Chloride 101 Carbon Dioxide 21 L BUN 34 H Creatinine 1.16 Estimated GFR > 60 BUN/Creatinine Ratio 29.3 H Glucose 344 H D Calcium 7.0 L Magnesium 2.2 Total Bilirubin 1.3 AST 13 L ALT 15 Alkaline Phosphatase 37 L Total Protein 5.0 L Albumin 2.7 L Globulin 2.3 Albumin/Globulin Ratio 1.2 Exam Vital Signs (past 8 hours): - 05/24/22 02:00 05/24/22 02:41 05/24/22 03:00 Temperature Pulse Rate 78 80 85 Respiratory Rate 15 26 H 15 Blood Pressure 91/50 L 91/50 L 93/51 L Pulse Oximetry 98 97 99 Oxygen Delivery Method Oxygen Flow Rate 50 50 Fraction of Inspired Oxygen 0.51 0.51 05/24/22 04:00 05/24/22 05:00 05/24/22 05:03 Temperature 97.3 F L Pulse Rate 80 81 80 Respiratory Rate 14 13 24 Blood Pressure 87/52 L 91/55 L 91/55 L Pulse Oximetry 99 98 98 Oxygen Delivery Method Oxygen Flow Rate 50 50 Fraction of Inspired Oxygen 0.51 0.51 05/24/22 04:00 05/24/22 05:00 05/24/22 06:00 Temperature Pulse Rate 82 Respiratory Rate 13 Blood Pressure 89/55 L Pulse Oximetry 93 99 Oxygen Delivery Method High Flow Nasal Cannula Heated High Flow Oxygen Flow Rate 50 50 Fraction of Inspired Oxygen 0.51 05/24/22 07:00 05/24/22 07:00 05/24/22 07:15 Temperature Pulse Rate 81 82 Respiratory Rate 13 13 Blood Pressure 101/57 L Pulse Oximetry 99 99 Oxygen Delivery Method Oxygen Flow Rate Fraction of Inspired Oxygen 05/24/22 07:30 05/24/22 08:44 Temperature Pulse Rate 82 84 Respiratory Rate 13 16 Blood Pressure 102/52 L Pulse Oximetry 99 96 Oxygen Delivery Method Oxygen Flow Rate Fraction of Inspired Oxygen Fraction of Inspired Oxygen 0.51 Oxygen Delivery Method Heated High Flow Oxygen Flow Rate 50 Narrative Exam Narrative: Patient seen through 2 way audio visual system. Patient is resting comfortably in bed. Quality TeleICU VTE Deep Vein Thrombosis/Pulmonary Embolism Present on Admission: No Assessment & Plan Assessment & Plan narrative: Assessment SOB Low output CHF- EF 20% NSTEMI- demand ischemia? Afib-now rate controlled Staph + in 1 out of 2 blood culture bottles: contaminant? DM Hematuria- from patient pulling at Foote Plan ACADEMIC HOSPITALIST: -Dex drip as needed for agitated delirium Cv: continue dobutamine drip -diurese as long as BP tolerates with goal of at least 1 L net neg per 24 hour period -troponin bump could be from demand ischemia in setting of Afib with RVR- defer to cardiology if and when patient needs further work up for CAD -continue PO Amio 100 mg BID -Keep K> 4, Mg+2 > 2 -Holding outpt Entresto, metoprolol, simvastatin, torsemide Pulm: wean down FIo2 on HFNC as long as Pox > 90 ID: continue Vanco for now -repeat BCx, if repeat BCx neg, can consider stopping abx Heme: stop lovenox for now given hematuria and drop in hgb -monitor hgb and hematuria -if hgb drops further consider blood transfusion -if hgb stabilizes and hematuria improves then can consider starting heparin drip FEN/Renal: continue lasix 40 mg TID -monitor electrolytes and replace K, Mg, and Ca as needed Endo: monitor BG and treat as needed to maintain euglycemia Code Status: DNR/DNI Lines: PIV - PICC line Time Spent With Patient Critical Care time: I spent a total of [45 min] minutes of critical care time on this patient's care today; this time is exclusive of procedural time.
[2022-05-24 09:20] LABS: Vancomycin Trough 13.1 ug/mL (10-20)
[2022-05-24 09:37] LABS: Cholesterol 77 mg/dL (140-199); HDL Cholesterol 22 mg/dL (40-60); LDL Cholesterol Calculated 34 mg/dL (<100); Triglycerides 107 mg/dL (35-150)
[2022-05-24] MEDS: MORPHINE 10 MG/0.5 ML ORAL SYRINGE SL ×4 (11:06→14:54)
[2022-05-24] MEDS: HYDROCODONE/ACET 5/325 TABLET 1 TAB PO (12:05)
--- NOTE | 2022-05-24 12:24 | CM.DPNOTE ---
Discharge Planning Note: Care team meeting with family and patient this morning and it was decided patient would transition to comfort care with plan for home with hospice. He has supportive family in the room today. [facility] and [facility] can accept at the end of the week. No equipment needs at this time per patient spouse Esperanza. Patient likes and sleeps in his recliner and they have other DME at home. Patient's son has been his caregiver and lives with patient and his mom. Other supportive family members as well. Spoke with spouse Esperanza who is very sad and is accepting of hospice. Provided [facility] brochure and explained to her that they will call and set up an appointment at the end of the week. Nurse Trudy instrumental in coordinating and communicating with family. DNR form filled out. Called BLS transport for 3 pm pick-up. This gives time for medications to be filled and picked up at pharmacy. Emily Dickey RN/DCP
--- NOTE | 2022-05-24 12:48 | P.DS_ITS ---
History of Present Illness History of Present Illness Date Patient Seen: 05/24/22 Time Patient Seen: 01:07 Chief complaint: SOB, Congestive heart failure Narrative: Mr. Jackie Hurley is a 71-year-old male with a medical history of left ventricular systolic congestive heart failure EF 20%(2020)no home 02, morbid obesity, essential hypertension, cardiomyopathy, PVD, venous insufficiency, CAD, atrial fibrillation with RVR on Eliquis, HXof [place], HX of hemorrhagic C VA/craniotomy with profound residual physical and cognitive deficits (completely dependent on for ADL support), BPH, insulin-dependent type 2 diabetes with polyneuropathy, hyperlipidemia, CKD who?presented with family to the ED with a chief complaint of worsening shortness of breath over the course of the past 24 hours. Patient had not been taking his diuretic for the past few weeks.? He beco mes profoundly short of breath with minimal exertion, was tachycardic, positive orthopnea, tachypneic, hypotensive in the ED.?at rest his saturations remained in the low 90s on room air. He & his family denied fever, chills, headache, runny nose, sore throat, chest pain, vomiting, diarrhea, abdominal pain, dysuria, frequency, urgency, diarrhea, constipation, blood in (sputum, urine, stool), recent weight gain or swelling in legs. Patient does suffer from cognitive deficits, is a poor historian, he is able to feed, dress, urinate and stool himself although unable to manage buttons, has no short-term memory, and unable to shower independently. Was unable to obtain accurate HPI from patient, the RN reported that he was at times able to follow simple commands, with no comprehension. Based on chart reviews from previous hospitalizations and primary care patient is at baseline. Initially when patient was accepted for admit temp 96.8?, BP 98/62, HR 119, R 28, O2 saturation 93% on room air, lactic 2.4, met SIRS criteria in ED, provided sepsis bolus and IV Levaquin. sepsis with hypotension B/P's 74/49, 89/54, 92/60. Patient's H&H 13/38.4, bicarb 20, BUN 24, creatinine 1.39, glucose 211, GFR 54. Chest xray showed patchy bilateral airspace opacities with a basilar predominance likely pneumonia, with confluent opacities medially in the lung bases, pneumonia versus atelectasis. D-dimer 966, CTA was negative for pulmonary embolus but showed cardiomegaly with pulmonary edema and bilateral small pleural effusions likely due to heart failure, and scattered ground-glass nodules with indistinct margins. BNP 1540, patient was negative for COVID, influenza a/B, RSV. Was given 40 of Lasix. Troponin was elevated above baseline 0.037. No EKG available in chart/cardio cafe server for evaluation. While in the emergency department patient developed SVT HR in the 150's, RR 40-50's, requiring c ardioversion. Cardioversion was successful, though patient developed acute respiratory failure requiring 4 L nasal cannula of oxygen. Following BP 111/59, HR 104, RR 38, O2 saturation 90% on 4 L N/C. SOFA:3, anion gap:14, Sj Vasc score: 7. Patient admitted to the ICU for observation due to sepsis with hypotension without shock secondary to pneumonia, acute respiratory failure secondary to acute on chronic congestive heart failure exacerbation, and atrial fibrillation with RVR, with myocardial injury. Due to staffing issues unable to bring the patient up to the ICU, patient will remain in ED until such time he can be transferred upstairs. Discharge Providers Provider Date of admission: 05/21/22 23:28 Discharge Date: 05/24/22 Primary care physician: Lance Lyons DO Consults: 05/21/22 23:58 Consult to Dietitian, Adult Routine Comment: Reason For Exam: Bmi 38.9 05/24/22 10:36 Consult to Discharge Planning Routine Comment: Consult to Hospice Referral Urgent Comment: Discharge provider: Den Guevara DO Summary Hospital Course Discharge Diagnosis: 1. Cardiogenic shock, acute present on admission -BP dropped to 70/40 despite 3L saline boluses in ED, suspect due to worsened EF exacerbated by RSV -Cardiology consulted who recommended dobutamine with amio drip, transfer to [facility] for cardiology consultation -required initially milronone, but BP continued to decline therefore changed to dobutamine and amio drip -now comfort care, BP stable once drips stopped 2. Acute respiratory failure, secondary to RSV infection and systolic CHF exacerbation, acute present on admission -HFrEF, appears to worsened from 30 to 20% based on review of echo May 2021 -The patient's noted that he takes torsemide 20 mg tabs 3-4 tablets (80-12 0mg) per day as needed (HOLDING) -Echo 05/22: EF 20-25%. LVEF has decreased since prior study. There is mild to moderate global hypokinesis of the left ventricle. But, the inferior, septum and part of apex are severely hypokinetic to akinetic. -BNP 1540 -Resp PCR positive for RSV, procal negative so will stop abx -Patient is not on any home O2, now requiring 4 L oxygen for an O2 saturation of 90%-that has now since change the patient is on high-flow 50 L at 65% RR 22 O2 saturation 96% -given lasix 40mg IV BID, able to wean to 3L NC from high flow -Foote Placed for accurate I&O and diuresis and kept on discharge for comfort measures 3. Atrial fibrillation with RVR component resolved, acute on chronic, present on admission -SVT HR in the 150's, RR 40-50's, requiring cardioversion x2. Cardioversion successful in converting to sinus rhythm. -continue metoprolol, Eliquis in AM Monitor for hypotension -continue telemetry -Cardiology recommended in 2020 internally planted defibrillator -amio drip as above to prevent converting to Afib RVR with dobutamine use 4. NSTEMI, acute, history myocardial infarction, present on admission -initial troponin 0.037, krunal to 3.850 then downtrended to 3.330, patient denied CP -given lovenox 1mg/kg BID for at least 48 hours -stopped lovenox due to hematuria and comfort measures 5. Chronic kidney disease stage G3a, stable, present on admission -on admit bicarb 20, BUN 24, creatinine 1.39, glucose 211, GFR 54. -per review of 02/18/2022 primary care records patient's baseline BUN 27, cr eatinine 1.28, GFR 59, A1c 7.0 -Closely monitor renal function -avoid nephrotoxic medications 5. Essential hypertension, with a history of cardiomyopathy, CAD, PVD, and venous insufficiency, chronic, present on admission - B/P's 74/49, 89/54, 92/60 -The patient's noted that he takes torsemide 20 mg tabs 3-4 tablets (80- 120mg) per day as needed-this very well may be contributing to his hypotension. Patient has seen his primary with frequent complaints of hypotension. -continue metoprolol, held Entresto 6. Insulin-dependent type 2 diabetes, with polyneuropathy, hyperglycemia, acute on chronic, with hyperlipidemia, chronic, present on admission -glucose 211 on admit, last A1c January 2022 7.0, ordered A1c on admit 6.2- patient over the age of 70 should have a permissive A1c of up to 7.5 to avoid hypo glycemia -Continue statin -Carb controlled diet -continue lantus 20mg BID and SSI 7. 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 -Patient's is his caregiver -Continue fluoxetine, hold seroquel due to amio use -resumed seroquel on discharge 8. BPH with hematuria due to traumatic foote, chronic, present on admission -bleeding from foote after patient pull on it -nursing flushing frequently to prevent clotting -improved prior to discharge -continue Flomax finasteride 9. Constipation, chronic, likely secondary to CVA, present on admission -recommend continuing with senna 10. Morbid obesity, acute on chronic, present on admission -as evidence by BMI of 38.4 -dietary consult ordered regarding nutritional education and information for dietary, lifestyle, exercise, and weight changes. -the patient is at much higher risk for medical and surgical complications due to obesity as it relates to chronic illnesses:, and his acute illnesses. The patient's obesity increases the difficulty and complexity of medical and/or surgical interventions, management and increases the chances of poor outcome such as morbidity and mortality as well as impaired wound healing. 11. Vascular dementia -patient alert but oriented x1 due to previous strokes, currently baseline Hospital Course: Admitted for cardiogenic shock and acute respiratory failure in the setting of positive RSV infection. Also had been in A-fib RVR which ED cardioverted x2 and achieved sinus rhythm. Patient's BP continued to drop to 80/40 systolic despite 3L boluses, which worsened patient's resp status and he required HFNC. Troponin uptrended to 3.8 and started on full dose lovenox. Cardiology consulted and patient placed on milronone drip and recommended transfer to higher level of care for cardiogenic shock and NSTEMI. The next day his BP continued to drop as he was given lasix to improved resp status and diurese off the extra fluid received due to shock. Cardiology recommended switching milronone to dobutamine drip plus amio drip to prevent A-fib RVR. Patient tolerated dubotamine and was able to diuresis with adequate BP to wean off HFNC to 3L NC. Patient pulled his foote causing traumatic injury to the bladder with armand hematuria. A goals of care discussion was held with the patient's and daughter given he was still dobutamine dependent, and given his vascular dementia and being very uncomfortable being in the hospital. They agreed that it may be better for him to return home on hospice, and this was setup. Patient discharged under the care of his and daughter for hospice to open in a few days. Time Spent with Patient Time spent: Greater than 30 minutes Exam Vital Signs (past 8 hours): - 05/24/22 05:00 05/24/22 05:03 05/24/22 05:00 Pulse Rate 81 80 Respiratory Rate 13 24 Blood Pressure 91/55 L 91/55 L Pulse Oximetry 98 98 93 Oxygen Delivery Method Heated High Flow Oxygen Flow Rate 50 50 Fraction of Inspired Oxygen 0.51 05/24/22 06:00 05/24/22 07:00 05/24/22 07:00 Pulse Rate 82 81 Respiratory Rate 13 13 Blood Pressure 89/55 L 101/57 L Pulse Oximetry 99 99 Oxygen Delivery Method Oxygen Flow Rate 50 Fraction of Inspired Oxygen 0.51 05/24/22 07:15 05/24/22 07:30 05/24/22 08:44 Pulse Rate 82 82 84 Respiratory Rate 13 13 16 Blood Pressure 102/52 L Pulse Oximetry 99 99 96 Oxygen Delivery Method Oxygen Flow Rate Fraction of Inspired Oxygen 05/24/22 09:00 05/24/22 08:00 05/24/22 07:45 Pulse Rate 89 Respiratory Rate 15 Blood Pressure Pulse Oximetry 97 97 Oxygen Delivery Method Heated High Flow High Flow Nasal Cannula Oxygen Flow Rate 35 Fraction of Inspired Oxygen 05/24/22 08:00 05/24/22 08:00 05/24/22 08:15 Pulse Rate 84 85 Respiratory Rate 14 14 Blood Pressure 102/52 L Pulse Oximetry 95 97 Oxygen Delivery Method Oxygen Flow Rate Fraction of Inspired Oxygen 05/24/22 08:30 05/24/22 08:45 05/24/22 09:00 Pulse Rate 84 84 Respiratory Rate 14 15 Blood Pressure 94/50 L Pulse Oximetry 96 96 Oxygen Delivery Method Oxygen Flow Rate Fraction of Inspired Oxygen 05/24/22 09:00 05/24/22 09:14 05/24/22 09:14 Pulse Rate 84 85 Respiratory Rate 14 15 Blood Pressure 93/54 L Pulse Oximetry 96 97 Oxygen Delivery Method Oxygen Flow Rate Fraction of Inspired Oxygen 05/24/22 09:15 05/24/22 09:30 05/24/22 09:45 Pulse Rate 85 87 86 Respiratory Rate 15 22 15 Blood Pressure Pulse Oximetry 97 96 97 Oxygen Delivery Method Oxygen Flow Rate Fraction of Inspired Oxygen 05/24/22 10:00 05/24/22 10:00 05/24/22 10:15 Pulse Rate 84 85 Respiratory Rate 15 14 Blood Pressure 97/52 L Pulse Oximetry 96 97 Oxygen Delivery Method Oxygen Flow Rate Fraction of Inspired Oxygen 05/24/22 11:41 05/24/22 11:44 Pulse Rate Respiratory Rate 16 Blood Pressure Pulse Oximetry 98 96 Oxygen Delivery Method Nasal Cannula Oxygen Flow Rate 3 Fraction of Inspired Oxygen Fraction of Inspired Oxygen 0.51 Oxygen Delivery Method Nasal Cannula Oxygen Flow Rate 3 Narrative Exam Narrative: General: Patient is a large framed morbidly obese male, on nonrebreather, cognitively impaired at baseline, in no acute distress at this time. HEENT: Normocephalic, atraumatic, extraocular muscles intact, mucous membranes are dry. Neck is supple and symmetric, trachea is midline, no adenopathy, no thyroid enlargement, nontender, no masses palpated. Negative for JVD Chest: Respiratory function with minimal exertion results in significant tachypnea and work of breathing. Lungs: Auscultation of all lung rothman are decreased equal, poor air exchange without obvious adventitious sounds, wheezes, rhonchi, or rales. Cardio: irregular rate and rhythm without murmur, rubs, or gallops, no carotid bruit, no cardiac pulsations present. Abdomen: Soft nontender, negative for organomegaly, or masses. Bowel sounds are present in all 4 quadrants without guarding or rebound, no CVA tenderness. : Armand blood from urethral meatus around foote, with dark bloody urine in foote bag Musculoskeletal: Muscle tone appears equal within normal limits for patient, no deformity, crepitus, effusions, cyanosis, clubbing. Positive bilateral +4 pitting edema to lower extremity. Full range of motion intact radial and pedal pulses are normal. Skin: Warm dry and intact without rashes, ulcerations or petechiae.positive venous stasis encircling bilateral calves. Neuro: Responds to verbal stimuli, moves all extremities, sensation to touch intact. Psych: Patient has a well-kept appearance, impaired cognition/mental status, at baseline per bedside RN who spoke with the Family in ED which is oriented x1. Objective Labs Result Diagrams: 05/24/22 07:46 05/24/22 07:46 Labs: Laboratory Results - last 24 hr 05/23/22 05/23/22 05/24/22 18:00 20:55 07:37 WBC RBC Hgb Hct MCV MCH MCHC RDW Plt Count Neut % (Auto) Lymph % (Auto) Winkler % (Auto) Eos % (Auto) Baso % (Auto) Neut # (Auto) Lymph # (Auto) Winkler # (Auto) Eos # (Auto) Baso # (Auto) VBG pH 7.43 7.37 VBG pCO2 29.5 L 39.6 L VBG pO2 38 20 L VBG HCO3 20 L 23 VBG Total CO2 20 L 24 VBG O2 Saturation 74 31 L VBG Base Excess -5.0 L -3.0 L Sodium Potassium 4.4 Chloride Carbon Dioxide BUN Creatinine Estimated GFR BUN/Creatinine Ratio Glucose Calcium Magnesium Total Bilirubin AST ALT Alkaline Phosphatase Total Protein Albumin Globulin Albumin/Globulin Ratio Triglycerides Cholesterol LDL Cholesterol, Calc HDL Cholesterol Vancomycin Trough 05/24/22 05/24/22 05/24/22 07:46 07:46 07:46 WBC 12.3 H RBC 3.09 L Hgb 8.8 L Hct 26.2 L MCV 84.7 MCH 28.5 MCHC 33.7 RDW 15.2 H Plt Count 173 Neut % (Auto) 78.8 H Lymph % (Auto) 11.7 L Winkler % (Auto) 8.8 Eos % (Auto) 0.3 L Baso % (Auto) 0.4 Neut # (Auto) 9700 H Lymph # (Auto) 1400 Winkler # (Auto) 1100 H Eos # (Auto) 0 Baso # (Auto) 0 VBG pH VBG pCO2 VBG pO2 VBG HCO3 VBG Total CO2 VBG O2 Saturation VBG Base Excess Sodium 131 L Potassium 3.8 Chloride 101 Carbon Dioxide 21 L BUN 34 H Creatinine 1.16 Estimated GFR > 60 BUN/Creatinine Ratio 29.3 H Glucose 344 H D Calcium 7.0 L Magnesium 2.2 Total Bilirubin 1.3 AST 13 L ALT 15 Alkaline Phosphatase 37 L Total Protein 5.0 L Albumin 2.7 L Globulin 2.3 Albumin/Globulin Ratio 1.2 Triglycerides 107 Cholesterol 77 L LDL Cholesterol, Calc 34 HDL Cholesterol 22 L Vancomycin Trough 05/24/22 07:46 WBC RBC Hgb Hct MCV MCH MCHC RDW Plt Count Neut % (Auto) Lymph % (Auto) Winkler % (Auto) Eos % (Auto) Baso % (Auto) Neut # (Auto) Lymph # (Auto) Winkler # (Auto) Eos # (Auto) Baso # (Auto) VBG pH VBG pCO2 VBG pO2 VBG HCO3 VBG Total CO2 VBG O2 Saturation VBG Base Excess Sodium Potassium Chloride Carbon Dioxide BUN Creatinine Estimated GFR BUN/Creatinine Ratio Glucose Calcium Magnesium Total Bilirubin AST ALT Alkaline Phosphatase Total Protein Albumin Globulin Albumin/Globulin Ratio Triglycerides Cholesterol LDL Cholesterol, Calc HDL Cholesterol Vancomycin Trough 13.1 [facility] Medical History Actinic keratoses Acute CHF Atrial fibrillation (02/21/15) Benign prostatic hyperplasia BPH (benign prostatic hyperplasia) Cardiomyopathy (02/21/15) Cataracts, bilateral (07/26/17) CHF (congestive heart failure) Chronic neck pain Coronary artery disease Diabetes Hematuria (~2016) History of CVA (cerebrovascular accident) (07/12/16) Hyperlipidemia Hypertension Hypotension Lower extremity edema Peripheral vascular disease PVD (peripheral vascular disease) Rash Renal failure Status post myocardial infarction (1994) Suspicious nevus Systolic CHF Surgical History History of cranioplasty (10/30/16) History of surgery on arm History of vasectomy S/P TURP (10/19/13) Status post craniectomy (07/12/16) Family History Mother Age: 92 Dementia Father Cancer Social History household members: spouse Smoking Status: Former smoker second hand exposure: No alcohol intake: former substance use type: does not use Discharge Plan Discharge Plan Patient Disposition: Home Discharge orders & Medications Prescriptions: New morphine concentrate 10 mg/0.5 mL Syringe 10 mg sublingual Q1H PRN (Reason: Pain, Mild (1-3)) Qty: 50 0RF lorazepam [Ativan] 1 mg tablet 1 mg PO Q1H PRN (Reason: anxiety/agitation) Qty: 60 0RF Continued (DME) Light pressure salma hose Qty: 1 0RF Dose Instruction: As directed Rx Instructions: As directed (DME) Donut Pillow Qty: 1 0RF Dose Instruction: As directed Rx Instructions: As directed (DME) Medium to high pressure socks Qty: 1 0RF Dose Instruction: As directed Rx Instructions: As directed insulin regular human [Humulin R Regular U-100 Insuln] 100 unit/mL solution See Rx Instructions SUBCUT TIDAC Qty: 10 12RF Dose Instruction: if blood sugar is <150 inject 0 units, 151-200 inject 5 units, 201-250 inject 10 units; >250 inject 15 units SUBCUT TIDAC; Label Comments: spouse states 5 units before lunch Rx Instructions: if blood sugar is <150 inject 0 units, 151-200 inject 5 units, 201-250 inject 10 units; >250 inject 15 units SUBCUT TIDAC; (Not per spouse report) (DME) Syringes: Ultra Fine Insulin Syringe w/Needle 0 .Route .MEDSUPPLY Qty: 100 3RF Dose Instruction: As directed Rx Instructions: As directed finasteride 5 mg tablet See Rx Instructions .ROUTE .COMPLEX Qty: 90 3RF Dose Instruction: TAKE 1 TABLET(5 MG) BY MOUTH EVERY DAY Rx Instructions: TAKE 1 TABLET(5 MG) BY MOUTH EVERY DAY simvastatin 40 mg tablet See Rx Instructions .ROUTE .COMPLEX Qty: 90 2RF Dose Instruction: TAKE 1 TABLET BY MOUTH DAILY AT BEDTIME Rx Instructions: TAKE 1 TABLET BY MOUTH DAILY AT BEDTIME insulin lispro [Humalog KwikPen Insulin] 100 unit/mL insulin pen 5 unit SUBCUT DAILY Qty: 15 5RF Rx Instructions: at lunch cyclobenzaprine 10 mg tablet See Rx Instructions .ROUTE .COMPLEX Qty: 90 3RF Dose Instruction: TAKE 1 TABLET BY MOUTH AT BEDTIME NEEDED FOR MUSCLE SPASM Rx Instructions: TAKE 1 TABLET BY MOUTH AT BEDTIME NEEDED FOR MUSCLE SPASM tamsulosin 0.4 mg capsule See Rx Instructions .ROUTE .COMPLEX Qty: 180 3RF Dose Instruction: TAKE 1 CAPSULE(0.4 MG) BY MOUTH TWICE DAILY Rx Instructions: TAKE 1 CAPSULE(0.4 MG) BY MOUTH TWICE DAILY polyethylene glycol 3350 17 gram powder in packet See Rx Instructions .ROUTE .COMPLEX Qty: 30 6RF Dose Instruction: MIX AND DRINK 1 PACKET BY MOUTH DAILY Rx Instructions: MIX AND DRINK 1 PACKET BY MOUTH DAILY metoprolol succinate 25 mg tablet extended release 24 hr 25 mg PO DAILY Qty: 90 3RF potassium chloride 10 mEq capsule, extended release See Rx Instructions .ROUTE .COMPLEX Qty: 180 3RF Dose Instruction: TAKE 1 CAPSULE BY MOUTH TWICE DAILY Rx Instructions: TAKE 1 CAPSULE BY MOUTH TWICE DAILY (DME) pen needle, diabetic [BD Ultra-Fine Short Pen Needle] 31 gauge x 5/16 needle See Rx Instructions .ROUTE .COMPLEX Qty: 100 1RF Dose Instruction: USE TO INJECT INSULIN TWICE DAILY Rx Instructions: USE TO INJECT INSULIN TWICE DAILY fluoxetine 20 mg capsule See Rx Instructions .ROUTE .COMPLEX Qty: 90 3RF Dose Instruction: TAKE 1 CAPSULE BY MOUTH DAILY Rx Instructions: TAKE 1 CAPSULE BY MOUTH DAILY Lantus Solostar U-100 Insulin 100 unit/mL (3 mL) insulin pen See Rx Instructions .ROUTE .COMPLEX Qty: 30 11RF Dose Instruction: INJECT 40 UNITS UNDER THE SKIN IN THE MORNING AND 90 UNITS IN THE EVENING Label Comments: spouse states 40 units in the am and 50units in the pm Rx Instructions: INJECT 40 UNITS UNDER THE SKIN IN THE MORNING AND 90 UNITS IN THE EVENING (N ot per spouse report) OneTouch Verio test strips Strip See Rx Instructions .ROUTE .COMPLEX Qty: 300 11RF Dose Instruction: USE TO TEST BLOOD SUGAR UP TO FOUR TIMES DAILY Rx Instructions: USE TO TEST BLOOD SUGAR UP TO FOUR TIMES DAILY hydrocodone-acetaminophen 5-325 mg tablet 1 tab PO Q6H Qty: 120 0RF Lancet: Device 1 st INJ QID quetiapine 25 mg tablet 12.5 mg QPM Rx Instructions: TAKE 1/4 TABLET IN THE MORNING AND 1/2 TABLET AT NIGHT torsemide 20 mg tablet See Rx Instructions .ROUTE .COMPLEX PRN (Reason: (Drug) Ingestion) Rx Instructions: TAKE 3 TABLETS BY MOUTH EVERY DAY, INCREASE TO 4 TABLETS NEEDED FOR WORSENING SYMPTOMS (Not per spouse report) Eliquis 2.5 mg tablet 2.5 mg PO BID Entresto 12 mg 12 mg PO BID Follow up/Referrals: Lance Lyons, [Primary Care Provider] - Discharge Data Primary Care Provider: Lance Lyons Attending Provider: Sara Larios VTE Deep Vein Thrombosis/Pulmonary Embolism Present on Admission: No
[2022-05-24] MEDS: LORazepam 1 MG TABLET PO (13:46)
[2022-05-25 09:14] LABS: Ionized Calcium 4.2 mg/dL (4.5-5.6)
== END 2022-05-24 15:11 | disposition home or self-care (01) ==
LOC: ED 23:19 → AC 23:29 → ICU 05-22 15:40
PROVIDERS: Internal Medicine; Internal Medicine Pulmonary Disease; Student in an Organized Health Care Education/Training Program; Admitting Provider Nurse Practitioner Family; Emergency Provider Emergency Medicine; Family Provider Family Medicine; PCP Family Medicine; Visit Provider Nurse Practitioner Family
DX: I13.0 Hypertensive heart and chronic kidney disease with heart failure and stage 1 through stage 4 chronic kidney disease, or unspecified chronic kidney disease (principal); I50.23 Acute on chronic systolic (congestive) heart failure; J96.00 Acute respiratory failure, unspecified whether with hypoxia or hypercapnia; N18.31 Chronic kidney disease, stage 3a; I69.320 Aphasia following cerebral infarction; I69.319 Unspecified symptoms and signs involving cognitive functions following cerebral infarction; I69.398 Other sequelae of cerebral infarction; N40.0 Benign prostatic hyperplasia without lower urinary tract symptoms; E11.42 Type 2 diabetes mellitus with diabetic polyneuropathy; E11.65 Type 2 diabetes mellitus with hyperglycemia; Z79.4 Long term (current) use of insulin; Z79.84 Long term (current) use of oral hypoglycemic drugs; I48.91 Unspecified atrial fibrillation; A41.9 Sepsis, unspecified organism; B95.7 Other staphylococcus as the cause of diseases classified elsewhere; E66.01 Morbid (severe) obesity due to excess calories; Z68.38 Body mass index [BMI] 38.0-38.9, adult; K59.00 Constipation, unspecified; Z87.891 Personal history of nicotine dependence; Z20.822 Contact with and (suspected) exposure to COVID-19
CPT/HCPCS: 0241U; 36415; 36569; 36592; 36600; 71045; 71275; 80048; 80053; 80061; 80202; 81001; 82330; 82550; 82805; 82962; 83036; 83605; 83735; 83880; 84132; 84145; 84443; 84484; 85025; 85379; 85610; 85730; 87040; 87086; 87147; 87150; 87186; 87633; 87797; 92960; 93005; 94640; 94660; 96365; 96366; 96367; 96368; 96372; 96375; 96376; 99152; 99226; 99285; 99291; 99292; G0378; C8929; J0282; J0696; J1644; J1650; J1940; J1956; J2260; J2704; Q9957; Q9967